=== PATIENT | male | born 1970 | race Caucasian/White ===

== ENCOUNTER 2018-07-21 16:37 | Outpatient (REF) | payer MEDICAID, SELFPAY ==
[2018-07-21 21:44] LABS: Abs Immature Grans 0.06 k/cumm (0.0-0.09); Absolute Basophil Count 0.05 k/cumm (0.0-0.2); Absolute Eosinophil Count 0.05 k/cumm (0.0-0.7); Absolute Lymphocyte Count 1.18 k/cumm (1.2-3.4); Absolute Monocyte Count 0.86 k/cumm (0.11-0.7); Absolute Neutrophil Count 6.69 k/cumm (1.2-6.7); Basophils % 0.6; Eosinophils % 0.6; HCT 40.7 % (40.0-50.0); HGB 13.6 g/dL (13.5-17.5); Immature Grans % 0.7; Lymphocytes % 13.3; Mean Corp. HGB Concentration 33.4 g/dL (32.0-36.0); Mean Corpuscular Hemoglobin 30.1 pg (27.0-33.0); Monocytes % 9.7; Neutrophils % 75.1; Platelet Count 195 x1000/uL (130-400); RBC 4.52 m/cumm (4.50-6.00); RBC Distribution Width 16.6 % (11.8-14.1); White Blood Cell Count 8.89 k/cumm (4.4-10.8)
[2018-07-21 21:49] LABS: ALT 56 U/L (12-78); AST 134 U/L (15-37); Albumin 3.4 g/dL (3.4-5.0); Alkaline Phosphatase 90 U/L (46-116); Anion Gap 10.3 mmol/L (3-11); BUN 4 mg/dL (7-18); Bilirubin, Direct 0.58 mg/dL (0.00-0.20); CO2 31.7 mmol/L (21.0-32.0); CREATININE 0.66 mg/dL (0.70-1.30); Calcium 8.8 mg/dL (8.5-10.1); Chloride 99 mmol/L (98-107); Glucose 95 mg/dL (70-100); Potassium 3.2 mmol/L (3.5-5.1); Sodium 141 mmol/L (136-145)
[2018-07-23 10:04] LABS: AFP Tumor Marker 2.7 ng/mL (<8.1)
== END 2018-07-21 16:57 ==
LOC: NCHCN 16:37
PROVIDERS: PCP Internal Medicine; Visit Provider Family Medicine
DX: R10.9 Unspecified abdominal pain (principal); K75.81 Nonalcoholic steatohepatitis (NASH); K74.60 Unspecified cirrhosis of liver; Z72.0 Tobacco use
CPT/HCPCS: 80053; 80076; 82105; 83036; 85025

== ENCOUNTER 2019-01-28 14:24 | Outpatient (REF) | payer MEDICAID, SELFPAY ==
[2019-01-28 21:09] LABS: ALT 50 U/L (12-78); AST 194 U/L (15-37); Albumin 3.4 g/dL (3.4-5.0); Alkaline Phosphatase 66 U/L (46-116); Anion Gap 14.9 mmol/L (3-11); BUN 5 mg/dL (7-18); Bilirubin, Total 1.2 mg/dL (0.2-1.0); CO2 24.1 mmol/L (21.0-32.0); CREATININE 0.54 mg/dL (0.70-1.30); Calcium 8.4 mg/dL (8.5-10.1); Chloride 101 mmol/L (98-107); Glucose 76 mg/dL (70-100); Potassium 3.4 mmol/L (3.5-5.1); Sodium 140 mmol/L (136-145); Total Protein 9.3 g/dL (6.4-8.2)
[2019-01-28 21:20] LABS: HCT 40.1 % (40.0-50.0); HGB 13.2 g/dL (13.5-17.5); Mean Corp. HGB Concentration 32.9 g/dL (32.0-36.0); Mean Corpuscular Hemoglobin 30.3 pg (27.0-33.0); Mean Corpuscular Volume 92.2 fL (80-95); Mean Platelet Volume 10.6 fL (8.0-11.0); Platelet Count 158 x1000/uL (130-400); RBC 4.35 m/cumm (4.50-6.00); RBC Distribution Width 15.2 % (11.8-14.1); White Blood Cell Count 6.07 k/cumm (4.4-10.8)
[2019-01-28 21:21] LABS: INR 1.2 (0.9-1.1); Prothrombin Time 11.8 sec (9.3-11.0)
== END 2019-01-28 14:44 ==
LOC: NCHCN 14:24
PROVIDERS: PCP Internal Medicine; Visit Provider Internal Medicine
DX: R10.9 Unspecified abdominal pain (principal); R23.8 Other skin changes; K76.9 Liver disease, unspecified; K74.60 Unspecified cirrhosis of liver
CPT/HCPCS: 80053; 85027; 85610

== ENCOUNTER 2019-06-01 10:42 | Outpatient (REF) | payer MEDICAID, SELFPAY ==
[2019-06-01 21:23] LABS: Abs Immature Grans 0.02 k/cumm (0.0-0.09); Absolute Basophil Count 0.05 k/cumm (0.0-0.2); Absolute Eosinophil Count 0.19 k/cumm (0.0-0.7); Absolute Lymphocyte Count 1.09 k/cumm (1.2-3.4); Absolute Monocyte Count 0.59 k/cumm (0.11-0.7); Absolute Neutrophil Count 3.62 k/cumm (1.2-6.7); Basophils % 0.9; Eosinophils % 3.4; HCT 40.2 % (40.0-50.0); HGB 13.1 g/dL (13.5-17.5); Immature Grans % 0.4; Lymphocytes % 19.6; Mean Corp. HGB Concentration 32.6 g/dL (32.0-36.0); Mean Corpuscular Hemoglobin 31.1 pg (27.0-33.0); Mean Corpuscular Volume 95.5 fL (80-95); Mean Platelet Volume 11.1 fL (8.0-11.0); Monocytes % 10.6; Neutrophils % 65.1; Platelet Count 143 x1000/uL (130-400); RBC 4.21 m/cumm (4.50-6.00); RBC Distribution Width 15.6 % (11.8-14.1); White Blood Cell Count 5.56 k/cumm (4.4-10.8)
[2019-06-01 21:46] LABS: ALT 61 U/L (16-63); AST 204 U/L (15-37); Albumin 3.3 g/dL (3.4-5.0); Alkaline Phosphatase 55 U/L (46-116); Anion Gap 9.4 mmol/L (3-11); BUN 7 mg/dL (7-18); CO2 29.6 mmol/L (21.0-32.0); CREATININE 0.58 mg/dL (0.70-1.30); Calcium 8.3 mg/dL (8.5-10.1); Chloride 104 mmol/L (98-107); Glucose 87 mg/dL (70-100); Magnesium 1.4 mg/dL (1.8-2.4); Potassium 3.9 mmol/L (3.5-5.1); Sodium 143 mmol/L (136-145); Total Protein 8.7 g/dL (6.4-8.2)
== END 2019-06-01 11:02 ==
LOC: NCHCN 10:42
PROVIDERS: PCP Internal Medicine; Visit Provider Family Medicine
DX: R55 Syncope and collapse (principal); R42 Dizziness and giddiness
CPT/HCPCS: 80053; 83735; 84443; 85025

== ENCOUNTER 2019-07-06 11:55 | Outpatient (REF) | payer MEDICAID, SELFPAY ==
[2019-07-12 12:21] LABS: Helicobacter pylori Ag, Feces Positive (Negative)
== END 2019-07-06 12:15 ==
LOC: NCHCN 11:55
PROVIDERS: PCP Internal Medicine; Visit Provider Internal Medicine
DX: R19.4 Change in bowel habit (principal)
CPT/HCPCS: 87338

== ENCOUNTER 2019-12-20 15:34 | Outpatient (REF) | payer MEDICAID, SELFPAY ==
[2019-12-20 21:00] LABS: Abs Immature Grans 0.01 k/cumm (0.0-0.09); Absolute Basophil Count 0.03 k/cumm (0.0-0.2); Absolute Eosinophil Count 0.12 k/cumm (0.0-0.7); Absolute Monocyte Count 0.58 k/cumm (0.11-0.7); Absolute Neutrophil Count 3.39 k/cumm (1.2-6.7); Basophils % 0.5; Eosinophils % 2.1; HCT 40.4 % (40.0-50.0); HGB 13.5 g/dL (13.5-17.5); Immature Grans % 0.2 %; Lymphocytes % 26.6; Mean Corp. HGB Concentration 33.4 g/dL (32.0-36.0); Mean Corpuscular Volume 92.9 fL (80-95); Mean Platelet Volume 11.6 fL (8.0-11.0); Monocytes % 10.3; Neutrophils % 60.3; Platelet Count 147 x1000/uL (130-400); RBC 4.35 m/cumm (4.50-6.00); RBC Distribution Width 13.8 % (11.8-14.1); White Blood Cell Count 5.63 k/cumm (4.4-10.8)
[2019-12-20 21:10] LABS: INR 1.2 (0.9-1.1)
[2019-12-20 21:29] LABS: Hemoglobin A1C 5.4 % (3.8-5.6)
[2019-12-20 21:42] LABS: ALT 97 U/L (16-63); AST 215 U/L (15-37); Albumin 3.7 g/dL (3.4-5.0); Alkaline Phosphatase 60 U/L (46-116); Anion Gap 9.9 mmol/L (3-11); BUN 9 mg/dL (7-18); Bilirubin, Total 1.8 mg/dL (0.2-1.0); CO2 29.1 mmol/L (21.0-32.0); CREATININE 0.62 mg/dL (0.70-1.30); Calcium 8.8 mg/dL (8.5-10.1); Calculated LDL 187 mg/dL (<100); Chloride 99 mmol/L (98-107); Cholesterol 255 mg/dL (<200); Glucose 93 mg/dL (74-106); HDL Cholesterol 57 mg/dL (40-60); Magnesium 1.4 mg/dL (1.8-2.4); Potassium 3.3 mmol/L (3.5-5.1); Sodium 138 mmol/L (136-145); Total Protein 8.9 g/dL (6.4-8.2); Triglyceride 56 mg/dL (<150)
== END 2019-12-20 15:54 ==
LOC: NCHCN 15:34
PROVIDERS: PCP Internal Medicine; Visit Provider Internal Medicine
DX: R73.03 Prediabetes (principal); E83.42 Hypomagnesemia; K74.60 Unspecified cirrhosis of liver
CPT/HCPCS: 80053; 80061; 83036; 83735; 85025; 85610

== ENCOUNTER 2020-02-27 09:23 | Outpatient (REF) | payer MEDICAID, SELFPAY ==
[2020-02-27 20:57] LABS: ALT 59 U/L (16-63); AST 99 U/L (15-37); Albumin 3.4 g/dL (3.4-5.0); Alkaline Phosphatase 63 U/L (46-116); Anion Gap 8.8 mmol/L (3-11); BUN 11 mg/dL (7-18); Bilirubin, Total 0.8 mg/dL (0.2-1.0); CO2 28.2 mmol/L (21.0-32.0); CREATININE 0.65 mg/dL (0.70-1.30); Calcium 8.7 mg/dL (8.5-10.1); Chloride 102 mmol/L (98-107); Glucose 115 mg/dL (74-106); Magnesium 1.6 mg/dL (1.8-2.4); Potassium 3.9 mmol/L (3.5-5.1); Sodium 139 mmol/L (136-145); Total Protein 8.9 g/dL (6.4-8.2)
== END 2020-02-27 09:43 ==
LOC: NCHCN 09:23
PROVIDERS: PCP Internal Medicine; Visit Provider Internal Medicine
DX: K74.60 Unspecified cirrhosis of liver (principal); E83.42 Hypomagnesemia
CPT/HCPCS: 80053; 83735

== ENCOUNTER 2020-05-10 09:29 | Inpatient (IN) | payer MEDICAID, SELFPAY ==
[2020-05-10] VITALS (80 sets, daily range): BP systolic 111–164; BP diastolic 60–118; PULSE 55–95; RESP 11–32; TEMP 36.6–36.7; O2SAT 93–98
--- NOTE | 2020-05-10 | DI.CT_ITS ---
EXAM: CT ABDOMEN PELVIS W CLINICAL HISTORY: pancreatitis TECHNIQUE: Imaging Protocol: Axial computed tomography images with coronal and sagittal reformatted images were created and reviewed CONTRAST MATERIAL: Intravenous: Omnipaque 350 Contrast volume:100 mL Oral: No COMPARISON: No exams were available for comparison FINDINGS: ABDOMEN: Lung Bases: Normal where visualized. Liver: There is diffuse decreased attenuation of the liver cyst consistent with fatty infiltration. There is a mildly nodular contour of the liver raising the question of hepatic cirrhosis. There is a small hypodense lesion in the inferior right lobe of the liver. It is too small for further charact erization but likely reflects a small cyst. Portal, Superior Mesenteric, and Splenic Veins: Unremarkable. Gallbladder and Biliary Tract: No radiodense calculus or dilation. Pancreas: Normal density, no abnormal calcifications or inflammatory process. Spleen: Normal. Adrenals: No masses seen. Kidneys: Normal size, contour and axis. No radiodense stones or obstructive uropathy. Hypodense less than 1 cm lesions are seen in the left kidney. There are too small for further characterization but likely reflect small cysts. Abdominal Aorta: Abdominal portion non-dilated. Atherosclerosis. Bowel: No obstruction or bowel wall thickening. No evidence of acute appendicitis. Colonic diverticu losis but no evidence of acute diverticulitis. Peritoneal Cavity: No ascites, collection or mesenteric inflammatory response. Lymph Nodes: Within normal limits. Bones: Degenerative changes. There is arthrodesis of the sacroiliac joints bilaterally. There is L5 -S1 discectomy. There is a L3 laminectomy. Pedicle focal screws and a igor are seen posteriorly on t he right from L3 through S1. Soft Tissues: Unremarkable. PELVIS: Bladder: Symmetric distention, no gross wall thickening. Reproductive Organs: Unremarkable as visualized. Lymph Nodes: Within normal limits. Bones: Please see above. IMPRESSION: 1. Fatty infiltration of the liver. Suspicious for hepatic cirrhosis. 2. Postoperative changes seen in the lumbosacral spine. 3. No acute abdominal or pelvic process. RADIATION DOSE DELIVERED: 1,161.06mGy.cm Total DLP DATA REPOSITORY: All CT scans at this facility are submitted to the National Radiology Data Registry (NRDR) Dose Index Registry (DIR) with the [employer] ([employer]). RADIATION OPTIMIZATION: All CT scans at this facility use at least one of these dose optimization te chniques: automated exposure control; mA and/or kV adjustment per patient size (includes targeted exa ms where dose is matched to clinical indication); or iterative reconstruction.
[2020-05-10 10:00] LABS: Bilirubin Small (Negative); Blood Negative (Negative); Clarity Clear (Clear); Glucose Negative (Negative); Ketones Negative (Negative); Leukocyte Esterase Negative (Negative); Nitrite Negative (Negative); Specific Gravity >= 1.030 (1.005-1.025)
[2020-05-10 10:08] LABS: Bacteria Rare HPF (Negative); C & S Indicated? No; Casts 0-2 Hyaline LPF (Negative); Crystals Negative HPF (Negative); Epithelial Cells Few HPF (Negative); Mucus Heavy (Negative); WBC 0-2 HPF (0-5)
[2020-05-10 10:18] LABS: *AMPHETAMINES SCREEN URINE Negative (Negative); *BARBITURATES SCREEN URINE Negative (Negative); *BENZODIAZEPINES SCREEN URINE Negative (Negative); Cannabinoids THC Negative (Negative); Cocaine Screen,Urine Negative (Negative); METHADONE URINE SCREEN Negative (Negative); OPIATES URINE SCREEN Negative (Negative)
[2020-05-10 10:21] LABS: Tricyclic Antidepressants Negative (Negative)
--- NOTE | 2020-05-10 10:25 | W.ED.GENAD ---
Discharge Plan Disposition Patient Disposition: OTHER Condition: Serious Discharge Details Clinical Impression: Alcohol withdrawal, Pancreatitis, Acute depression Primary Care Provider: Vilma Givens ED Provider: Oz Palmer Home Meds and New Rx's Prescriptions: No Action carvedilol 12.5 mg Tablet 12.5 mg PO BID RF: 0 chlorthalidone 25 mg tablet 25 mg PO DAILY RF: 0 triamcinolone acetonide 0.1 % cream 1 applic TOPICAL DIRECTED RF: 0 citalopram 20 mg Tablet 20 mg PO DAILY RF: 0 potassium chloride 20 mEq tablet,ER particles/crystals 20 meq PO DAILY RF: 0 magnesium oxide 400 mg (241.3 mg magnesium) tablet 400 mg PO DAILY RF: 0 diclofenac sodium 1 % gel 1 applic TOPICAL TID RF: 0 Medical Decision Making 50-year-old gentleman who admits to depression, chronic alcohol use for nearly 15 years. Last drink was yesterday afternoon-evening, presents here at the request of [facility] for detox. He denies any drug use. Patient does present with hypertension but denies any headache, chest pain, shortness of breath, numbness, tingling, weakness. He otherwise appears well, nontoxic. He shows no signs of obvious withdrawal. Will obtain routine laboratory values for medical screening, will request a mental health examination and get care management involved for a plan for this patient. Will give 1 L IV fluid and 4 mg IV Zofran. CIWA ordered and initial score of 9. Patient reports mild headache, p.o. Tylenol given. Laboratory values reveal a white blood cell count of 6.32 hemoglobin 12.9 hematocrit 40, platelet count 198. Electrolytes unremarkable. Creatinine 0.65 with a GFR greater than 60. Glucose 108. LFTs reveal total bilirubin 0.6 AST 94 ALT 66 alk phosphatase 44 lipase 481. Urinalysis unremarkable for obvious infection. Salicylates less than 2.8, tox screen negative, ethanol level 160. Repeat CIWA of 9 I spoke with [facility], they report that he cannot evaluate the patient until his alcohol level has reached 0. We did have a rehab assistant women's soccer coach come speak with the patient. Please see their note I did have our care management team come discuss options with the patient as well. Unfortunately it appears as though the patient requires a negative Covid swab and medical screening examination for any rehab facility. If the patient is discharged home this will likely mean he will need another medical screening examination and somehow either a rapid Covid swab or admission for a negative test. Repeat alcohol level 40, CIWA score now 20, 3 mg p.o. Ativan given. [facility] human services now on their way for evaluation. They are in room, please see their note. Patient was observed in our ER for over 4-1/2 hours. Initially he had very mild alcohol withdrawal symptoms but eventually upon sobriety he scored 20 requiring Ativan. At this time I feel as though we do have a diagnosis for admission, alcohol withdrawal. He does appear to be a mild pancreatitis although he has not required any analgesia here in the ER. Covid is pending. I will discuss the case with our hospitalist team for admission. Dr. Price to the ER for evaluation. She does request that a CT of the abdomen and pelvis be obtained for the patient's pancreatitis but is agreeable to admission to the ICU. Medical Records Medical records reviewed: Yes I reviewed the patient's medical records. Lab Data Lab results reviewed: Yes I reviewed the patient's lab results. Lab results narrative: Laboratory Tests Range/Units 05/10/20 05/10/20 05/10/20 09:14 09:14 10:19 WBC (4.4-10.8) 10^3/uL RBC (4.36-5.78) 10^6/uL Hgb (13.5-17.5) g/dL Hct (40.0-50.0) % MCV (80-95) fL MCH (27.0-33.0) pg MCHC (32.0-36.0) % RDW (11.8-14.1) % Plt Count (130-400) 10^3/uL MPV (8.0-11.0) fL Immature Gran % Neutrophils % Lymphocytes % Monocytes % Eosinophils % Basophils % Nucleated RBC % % Absolute Neutrophils (1.2-6.7) 10^3/uL Absolute Lymphocytes (1.2-3.4) 10^3/uL Absolute Monocytes (0.1-0.8) 10^3/uL Absolute Eosinophils (0.0-0.7) 10^3/uL Absolute Basophils (0.0-0.2) 10^3/uL Sodium (136-145) mmol/L Potassium (3.5-5.1) mmol/L Chloride (98-107) mmol/L Carbon Dioxide (21.0-32.0) mmol/L Anion Gap (3-11) mmol/L BUN (7-18) mg/dL Creatinine (0.70-1.30) mg/dL Estimated GFR/1.73 m2 (mL/min/1.73m2) Glucose (74-106) mg/dL Calcium (8.5-10.1) mg/dL Magnesium (1.8-2.4) mg/dL Total Bilirubin (0.2-1.0) mg/dL AST (15-37) U/L ALT (16-63) U/L Alkaline Phosphatase (46-116) U/L Total Protein (6.4-8.2) g/dL Albumin (3.4-5.0) g/dL Lipase (73-393) U/L Urine Color (Yellow) Dark yellow Cancelled Urine Clarity (Clear) Clear Cancelled Urine pH (5-8) 6.0 Cancelled Ur Specific [place] (1.005-1.025) >= 1.030 H Cancelled Urine Protein (Negative) mg/dL 100 H Cancelled Urine Ketones (Negative) mg/dL Negative Cancelled Urine Blood (Negative) Negative Cancelled Urine Nitrite (Negative) Negative Cancelled Urine Bilirubin (Negative) Small H Cancelled Urine Urobilinogen (Up TO 0.2) EU/dL 1.0 H Cancelled Ur Leukocyte Esterase (Negative) Negative Cancelled Urine RBC (0-2) HPF 3-5 H Urine WBC (0-5) HPF 0-2 Ur Epithelial Cells (Negative) HPF Few Urine Crystals (Negative) HPF Negative Urine Bacteria (Negative) HPF Rare Urine Casts (Negative) LPF 0-2 hyaline Urine Mucus (Negative) Heavy Ur Culture Indicated? No Urine Glucose (Negative) mg/dL Negative Cancelled Salicylates (2.8-20.0) mg/dL Urine Opiates Screen (Negative) Negative Urine Methadone Screen (Negative) Negative Acetaminophen (10-30) ug/mL Ur Barbiturates Screen (Negative) Negative Ur Tricyclics Screen (Negative) Negative Ur Amphetamines Screen (Negative) Negative U Benzodiazepines Scrn (Negative) Negative Urine Cocaine Screen (Negative) Negative Ur THC Screen (Negative) Negative Ethyl Alcohol (<3) mg/dL Range/Units 10/05/10/20 05/10/20 10:25 10:25 10:25 WBC (4.4-10.8) 10^3/uL 6.32 RBC (4.36-5.78) 10^6/uL 4.19 L Hgb (13.5-17.5) g/dL 12.9 L Hct (40.0-50.0) % 40.0 MCV (80-95) fL 95.5 H MCH (27.0-33.0) pg 30.8 MCHC (32.0-36.0) % 32.3 RDW (11.8-14.1) % 14.7 H Plt Count (130-400) 10^3/uL 198 MPV (8.0-11.0) fL 9.5 Immature Gran % 0.3 Neutrophils % 70.1 Lymphocytes % 17.2 Monocytes % 7.9 Eosinophils % 3.6 Basophils % 0.9 Nucleated RBC % % 0 Absolute Neutrophils (1.2-6.7) 10^3/uL 4.42 Absolute Lymphocytes (1.2-3.4) 10^3/uL 1.09 L Absolute Monocytes (0.1-0.8) 10^3/uL 0.50 Absolute Eosinophils (0.0-0.7) 10^3/uL 0.23 Absolute Basophils (0.0-0.2) 10^3/uL 0.06 Sodium (136-145) mmol/L 143 Potassium (3.5-5.1) mmol/L 3.8 Chloride (98-107) mmol/L 107 Carbon Dioxide (21.0-32.0) mmol/L 26.1 Anion Gap (3-11) mmol/L 9.9 BUN (7-18) mg/dL 15 Creatinine (0.70-1.30) mg/dL 0.65 L Estimated GFR/1.73 m2 (mL/min/1.73m2) >= 60.00 Glucose (74-106) mg/dL 108 H Calcium (8.5-10.1) mg/dL 8.4 L Magnesium (1.8-2.4) mg/dL 1.8 Total Bilirubin (0.2-1.0) mg/dL 0.6 AST (15-37) U/L 94 H ALT (16-63) U/L 66 H Alkaline Phosphatase (46-116) U/L 44 L Total Protein (6.4-8.2) g/dL 8.5 H Albumin (3.4-5.0) g/dL 3.5 Lipase (73-393) U/L 481 H Urine Color (Yellow) Urine Clarity (Clear) Urine pH (5-8) Ur Specific [place] (1.005-1.025) Urine Protein (Negative) mg/dL Urine Ketones (Negative) mg/dL Urine Blood (Negative) Urine Nitrite (Negative) Urine Bilirubin (Negative) Urine Urobilinogen (Up TO 0.2) EU/dL Ur Leukocyte Esterase (Negative) Urine RBC (0-2) HPF Urine WBC (0-5) HPF Ur Epithelial Cells (Negative) HPF Urine Crystals (Negative) HPF Urine Bacteria (Negative) HPF Urine Casts (Negative) LPF Urine Mucus (Negative) Ur Culture Indicated? Urine Glucose (Negative) mg/dL Salicylates (2.8-20.0) mg/dL < 2.8 Urine Opiates Screen (Negative) Urine Methadone Screen (Negative) Acetaminophen (10-30) ug/mL < 2 Ur Barbiturates Screen (Negative) Ur Tricyclics Screen (Negative) Ur Amphetamines Screen (Negative) U Benzodiazepines Scrn (Negative) Urine Cocaine Screen (Negative) Ur THC Screen (Negative) Ethyl Alcohol (<3) mg/dL 106.5 Range/Units 05/10/20 13:31 WBC (4.4-10.8) 10^3/uL RBC (4.36-5.78) 10^6/uL Hgb (13.5-17.5) g/dL Hct (40.0-50.0) % MCV (80-95) fL MCH (27.0-33.0) pg MCHC (32.0-36.0) % RDW (11.8-14.1) % Plt Count (130-400) 10^3/uL MPV (8.0-11.0) fL Immature Gran % Neutrophils % Lymphocytes % Monocytes % Eosinophils % Basophils % Nucleated RBC % % Absolute Neutrophils (1.2-6.7) 10^3/uL Absolute Lymphocytes (1.2-3.4) 10^3/uL Absolute Monocytes (0.1-0.8) 10^3/uL Absolute Eosinophils (0.0-0.7) 10^3/uL Absolute Basophils (0.0-0.2) 10^3/uL Sodium (136-145) mmol/L Potassium (3.5-5.1) mmol/L Chloride (98-107) mmol/L Carbon Dioxide (21.0-32.0) mmol/L Anion Gap (3-11) mmol/L BUN (7-18) mg/dL Creatinine (0.70-1.30) mg/dL Estimated GFR/1.73 m2 (mL/min/1.73m2) Glucose (74-106) mg/dL Calcium (8.5-10.1) mg/dL Magnesium (1.8-2.4) mg/dL Total Bilirubin (0.2-1.0) mg/dL AST (15-37) U/L ALT (16-63) U/L Alkaline Phosphatase (46-116) U/L Total Protein (6.4-8.2) g/dL Albumin (3.4-5.0) g/dL Lipase (73-393) U/L Urine Color (Yellow) Urine Clarity (Clear) Urine pH (5-8) Ur Specific [place] (1.005-1.025) Urine Protein (Negative) mg/dL Urine Ketones (Negative) mg/dL Urine Blood (Negative) Urine Nitrite (Negative) Urine Bilirubin (Negative) Urine Urobilinogen (Up TO 0.2) EU/dL Ur Leukocyte Esterase (Negative) Urine RBC (0-2) HPF Urine WBC (0-5) HPF Ur Epithelial Cells (Negative) HPF Urine Crystals (Negative) HPF Urine Bacteria (Negative) HPF Urine Casts (Negative) LPF Urine Mucus (Negative) Ur Culture Indicated? Urine Glucose (Negative) mg/dL Salicylates (2.8-20.0) mg/dL Urine Opiates Screen (Negative) Urine Methadone Screen (Negative) Acetaminophen (10-30) ug/mL Ur Barbiturates Screen (Negative) Ur Tricyclics Screen (Negative) Ur Amphetamines Screen (Negative) U Benzodiazepines Scrn (Negative) Urine Cocaine Screen (Negative) Ur THC Screen (Negative) Ethyl Alcohol (<3) mg/dL 40.1 ECG Data Attestation: I personally reviewed and interpreted this ECG (s) as follows: Interpretation: Please see official report by Dr. Hensley. Sinus rhythm, ventricular rate of 67. No STEMI. HPI General Mode of arrival: ambulatory. Date/Time Provider Initiated Documentation: 05/10/20 09:36. Limitations to Documentation: no limitations. Information obtained by: patient. HPI Narrative: This is a 50-year-old gentleman with history of alcohol abuse, hypertension, depression, presenting to the ER for evaluation at the request of [facility] human services. He reports that he drinks roughly 1/2 gallon of vodka every 2 days. He states that his last drink was yesterday afternoon-evening. He reports a past medical history that includes depression and hypertension. He called 911 last night for help with his current situation and requesting alcohol detox. He was referred to [facility] human resources and subsequently referred to the ER. He denies any drug use. He admits to depression but denies any suicidal or homicidal ideations. Currently he reports mild nausea and feels slightly anxious but does not believe that he is in clear withdrawals at the moment. He did formally detox back in 2001, does not recall the detox very well. Does not believe that he had a seizure at that time. He denies recent illness or trauma. He denies any visual changes, neck pain, chest pain, shortness of breath, abdominal pain, vomiting, bowel or bladder changes, numbness, tingling, weakness. Related Data Home Medications Medication Instructions Recorded Confirmed carvedilol 12.5 mg PO BID 05/10/20 05/10/20 chlorthalidone 25 mg PO DAILY 05/10/20 05/10/20 citalopram 20 mg PO DAILY 05/10/20 05/10/20 diclofenac sodium 1 applic TOPICAL TID 05/10/20 05/10/20 magnesium oxide 400 mg PO DAILY 05/10/20 05/10/20 potassium chloride 20 meq PO DAILY 05/10/20 05/10/20 triamcinolone acetonide 1 applic TOPICAL DIRECTED 05/10/20 05/10/20 Allergies Allergy/AdvReac Type Severity Reaction Status Date / Time No Known Allergies Allergy Unverified 05/10/20 09:46 General Stated Complaint: ETOHWithdr GUSTAVO: 3 Review of Systems Constitutional Constitutional: Denies fatigue, Denies fever(s) and Denies weakness Eyes Eyes: Denies change in vision ENT Ears, Nose, Mouth, and Throat: Denies neck pain Cardiovascular Cardiovascular: Denies chest pain and Denies dyspnea Respiratory Respiratory: Denies cough and Denies dyspnea Gastrointestinal Gastrointestinal: Denies abdominal pain, Reports nausea and Denies vomiting Genitourinary Genitourinary: Denies dysuria Musculoskeletal Musculoskeletal: Denies back pain, Denies neck pain, Denies numbness and Denies tingling Integumentary/Breasts Skin/Breast: Denies rash Neurologic Neurologic: Denies numbness, Denies tingling and Denies weakness Psychiatric Psychiatric: Reports anxiety, Reports depression, Denies homicidal ideation and Denies suicidal ideation Endocrine Endocrine: Denies fatigue [facility] Medical History Alcohol abuse Chronic back pain Depression Fatty liver HTN (hypertension), benign NERIS on CPAP Prediabetes Surgical History History of back surgery 11 surgeries in total S/P tonsillectomy Family History Father Heart disease Diabetes Cancer pancreatic cancer Social History Smoking/Tobacco Use Status: Never Alcohol Intake: current Alcohol Intake frequency: 3 or more drinks per day Alcohol type: hard liquor Drug use: Never Substance use type: does not use and former substance user Date of last use: marijuana Do you feel safe at home: Yes Do you feel safe in your relationship?: Yes Exam Const General: cooperative, healthy appearing, comfortable and no acute distress Orientation: alert, awake and oriented x3 HENMT Head: normal to inspection, no palpable skull fracture, normocephalic and atraumatic General nose exam: external nose normal Face and sinus: normal facial exam Mouth: moist mucous membranes Throat: posterior oropharynx normal Eyes General: appearance normal, both eyes and all related structures Alignment and Position: alignment normal Periorbital: periorbital findings normal Eyelids: eyelids normal Conjunctivae: conjunctivae normal Sclera: sclerae normal Cornea: corneas normal Pupils: PERRL EOM: EOM intact bilaterally Direct ophthalmoscopy: normal light reflex Neck Neck: normal visual inspection, full ROM, trachea midline, supple and nontender Resp Effort & Inspection: normal respiratory effort and able to speak in complete sentences Auscultation: clear to auscultation bilaterally Cardio Rate: regular rate Rhythm: regular rhythm GI Palpation: soft, not firm, no guarding and tender in the epigastrum (Minimal to deep palpation); with no rebound tenderness Auscultation: normal bowel sounds Back/Spine/Pelvis Back: No back tenderness Skin General skin exam: no rashes or lesions noted Neuro General: patient alert, patient awake, patient oriented x3, moves all extremities and no focal motor deficits Cranial Nerves: CN's II-XI intact bilaterally Cognition: normal cognition Gait: normal gait Motor: muscle tone normal throughout Sensory Exam: no sensory deficits noted Extrem General: normal to inspection, full ROM, capillary refill normal, no pedal edema and no calf tenderness Psych Appearance: grossly normal Mental Status: mental status grossly normal Mood: dysthymic mood Thought Content: suicidality Insight: fair Judgment: fair Course Vital Signs Vital signs: Vital Signs Temperature 36.6 C 05/10/20 09:39 Pulse 85 05/10/20 09:39 Blood Pressure 161/101 H 05/10/20 09:39 Pulse Oximetry 95 05/10/20 09:39 Temperature 36.6 C 05/10/20 09:39 Temperature Source Temporal Artery Scan 05/10/20 09:39 Pulse 85 05/10/20 09:39 Respiratory Effort Non-Labored 05/10/20 09:49 Respiratory Pattern Normal 05/10/20 10:07 Blood Pressure 161/101 H 05/10/20 09:39 Blood Pressure Position Sitting 05/10/20 09:39 Pulse Oximetry 95 05/10/20 09:39 Oxygen Delivery Method Room Air 05/10/20 09:39 Oxygen Flow Rate 0 05/10/20 09:39 Pain Level 0 05/10/20 09:39 Lab/Test Results Lab/Test Results: Laboratory Tests Range/Units 05/10/20 05/10/20 09:14 09:14 Urine Color (Yellow) Dark yellow Urine Clarity (Clear) Clear Urine pH (5-8) 6.0 Ur Specific [place] (1.005-1.025) >= 1.030 H Urine Protein (Negative) mg/dL 100 H Urine Ketones (Negative) mg/dL Negative Urine Blood (Negative) Negative Urine Nitrite (Negative) Negative Urine Bilirubin (Negative) Small H Urine Urobilinogen (Up TO 0.2) EU/dL 1.0 H Ur Leukocyte Esterase (Negative) Negative Urine RBC (0-2) HPF 3-5 H Urine WBC (0-5) HPF 0-2 Ur Epithelial Cells (Negative) HPF Few Urine Crystals (Negative) HPF Negative Urine Bacteria (Negative) HPF Rare Urine Casts (Negative) LPF 0-2 hyaline Urine Mucus (Negative) Heavy Ur Culture Indicated? No Urine Glucose (Negative) mg/dL Negative Urine Opiates Screen (Negative) Negative Urine Methadone Screen (Negative) Negative Ur Barbiturates Screen (Negative) Negative Ur Tricyclics Screen (Negative) Negative Ur Amphetamines Screen (Negative) Negative U Benzodiazepines Scrn (Negative) Negative Urine Cocaine Screen (Negative) Negative Ur THC Screen (Negative) Negative Critical Care Time Critical Care Time Critical Care Time: Yes Total Critical Care Time: 45 Attestation: Upon my evaluation, this patient had a high probability of clinically significant, life-threatening deterioration due to their current medical conditions, which required my direct attention, intervention, and personal management. I have personally provided greater than 30 minutes of critical care time exclusive of the time spend on separately billable procedures. Time includes obtaining a history, examining the patient, pulse oximetry, review of laboratory data, radiology results, discussion with consultants, arranging urgent treatment with development of a management plan, evaluation of patient's response to treatment, and monitoring for potential decompensation. Interventions were performed as documented above.
[2020-05-10 10:33] LABS: Abs Immature Grans 0.02 10^3/uL (0.0-0.06); Absolute Basophil Count 0.06 10^3/uL (0.0-0.2); Absolute Eosinophil Count 0.23 10^3/uL (0.0-0.7); Absolute Lymphocyte Count 1.09 10^3/uL (1.2-3.4); Absolute Neutrophil Count 4.42 10^3/uL (1.2-6.7); Basophils % 0.9; Eosinophils % 3.6; HGB 12.9 g/dL (13.5-17.5); Immature Grans % 0.3; Lymphocytes % 17.2; MCH 30.8 pg (27.0-33.0); MCHC 32.3 % (32.0-36.0); MCV 95.5 fL (80-95); MPV 9.5 fL (8.0-11.0); Monocytes % 7.9; Neutrophils % 70.1; Nucleated RBC 0 %; Platelet Count 198 10^3/uL (130-400); RBC 4.19 10^6/uL (4.36-5.78); RDW 14.7 % (11.8-14.1); RDW-SD 52.2 fL; WBC 6.32 10^3/uL (4.4-10.8)
[2020-05-10 10:47] LABS: ALT 66 U/L (16-63); AST 94 U/L (15-37); Albumin 3.5 g/dL (3.4-5.0); Alkaline Phosphatase 44 U/L (46-116); Anion Gap 9.9 mmol/L (3-11); BUN 15 mg/dL (7-18); Bilirubin, Total 0.6 mg/dL (0.2-1.0); CO2 26.1 mmol/L (21.0-32.0); CREATININE 0.65 mg/dL (0.70-1.30); Calcium 8.4 mg/dL (8.5-10.1); Chloride 107 mmol/L (98-107); ETHANOL BLOOD 106.5 mg/dL (<3); Glucose 108 mg/dL (74-106); Lipase 481 U/L (73-393); Magnesium 1.8 mg/dL (1.8-2.4); Potassium 3.8 mmol/L (3.5-5.1); Sodium 143 mmol/L (136-145); Total Protein 8.5 g/dL (6.4-8.2)
[2020-05-10 11:04] LABS: Salicylate < 2.8 mg/dL (2.8-20.0)
[2020-05-10] MEDS: Ondansetron 4 MG/2 ML VIAL IVP ×2 (11:06→23:55)
[2020-05-10] MEDS: Normal Saline 1,000 ML 1000 ML IV (11:06)
[2020-05-10 11:15] LABS: Acetaminophen < 2 ug/mL (10-30)
--- NOTE | 2020-05-10 13:15 | RT.EKG_ITS ---
APPROVED REPORT Exam: Resting ECG Patient Location: E HR:67 bpm ECG Measurements Heart Rate 67 AXIS KS 185 P 42 QRSd 94 QRS -18 QT 420 T -9 QTc 443 Conclusion Sinus rhythm...normal P axis, V-rate 60- 99. T wave inversion in III, aVF. No STEMI. I have reviewed and interpreted ECG and agree with software generated interpretation.
[2020-05-10 13:43] LABS: ETHANOL BLOOD 40.1 mg/dL (<3)
[2020-05-10] MEDS: Acetaminophen 500 MG TAB (14:03)
[2020-05-10] MEDS: LORazepam 1 MG TAB PO/SL (14:21)
--- NOTE | 2020-05-10 15:16 | HPE_ITS ---
Date of service: 05/10/20 Time of Service: 15:16 Assessment and Plan Assessment and plan (1) Alcohol withdrawal: Status: Acute Assessment and plan: Admit to the ICU. Will give a dose of 260 mg of phenobarbital and monitor for further symptoms with prn doses to be given Q30 mins for HR>120, SBP>150, marked agitation, RASC score 0-1. (2) Pancreatitis: Status: Chronic Assessment and plan: NPO. Await CT abdomen/pelvis. Prn IV toradol (3) Depression: Status: Chronic Assessment and plan: Continue citalopram (4) Chronic pain: Status: Chronic Assessment and plan: Continue diclofenac topically; will be receiving toradol. (5) DVT prophylaxis: Status: Acute Assessment and plan: lovenox, TEDs, SCDS (6) Discharge planning issues: Status: Acute Assessment and plan: Full code Admit to the ICU for the degree of alcohol withdrawal. Total Critical Care Time 60 minutes. History of Present Illness History of Present Illness Chief Complaint: epigastric pain, alcohol withdrawal Narrative: Mr Glaser is a 50 year old male with PMHx of alcohol abuse (last sober in 2004), as well as h/o HTN, chronic pain, depression, who called mental health last night asking for help quitting drinking, and was asked to go to the ED, where he now has a CIWA score of 20 and is reporting epigastric pain with an elevated lipase, c/w pacreatitis. The patient has had a headache, nausea, RUQ pain, tremors. He denies chest pain, shortness of breath, fever, cough, symptoms of COVID-19. He does not have a h/o of alcohol withdrawal seizures. The patient is now drinking 1/2 gallon of vodka every 2 days. His last drink was yesterday afternoon. He is not suicidal or homicidal. Review of Systems All systems reviewed & are unremarkable except as noted in HPI and below PFSH Medical History Alcohol abuse Chronic back pain Depression Fatty liver HTN (hypertension), benign NERIS on CPAP Prediabetes Surgical History History of back surgery 11 surgeries in total S/P tonsillectomy Family History Father Heart disease Diabetes Cancer pancreatic cancer Social History Smoking/Tobacco Use Status: Never Alcohol Intake: current Alcohol Intake frequency: 3 or more drinks per day Alcohol type: hard liquor Drug use: Never Substance use type: does not use and former substance user Date of last use: marijuana Do you feel safe at home: Yes Do you feel safe in your relationship?: Yes Meds Home Medications and Allergies Home Medications Medication Instructions Recorded Confirmed Type carvedilol 12.5 mg PO BID 05/10/20 05/10/20 History chlorthalidone 25 mg PO DAILY 05/10/20 05/10/20 History citalopram 20 mg PO DAILY 05/10/20 05/10/20 History diclofenac sodium 1 applic TOPICAL TID 05/10/20 05/10/20 History magnesium oxide 400 mg PO DAILY 05/10/20 05/10/20 History potassium chloride 20 meq PO DAILY 05/10/20 05/10/20 History triamcinolone acetonide 1 applic TOPICAL DIRECTED 05/10/20 05/10/20 History Allergies Allergy/AdvReac Type Severity Reaction Status Date / Time No Known Allergies Allergy Unverified 05/10/20 09:46 Exam Narrative Exam Narrative: General: Very pleasant, very tremulous middle-aged male, very cooperative, A&Ox3, sitting up in bed Neurological: A&Ox3, tremulous, no focal deficits Psychiatric: Appropriate speech pattern/content Skin: Visible skin intact; does have tattoo on the right shoulder HEENT: Atraumatic, normocephalic, EOMI, dry MM, clear oropharynx, no submandibular or cervical lymphadenopathy, no goiter or JVD Cardiovascular: RRR, no m/r/g Lungs: CTAB Gastrointestinal: soft, nontender, nondistended Genitourinary: deferred Extremities: no edema BLE's. Results Imaging Additional studies: CT abdome/pelvis pending. EKG: NSR, HR 66, no acute ischemia Labs Result diagrams: 05/10/20 10:25 05/10/20 10:25 Labs: Laboratory Results - last 24 hr 05/10/20 05/10/20 05/10/20 09:14 09:14 10:19 WBC RBC Hgb Hct MCV MCH MCHC RDW Plt Count MPV Immature Gran % Neutrophils % Lymphocytes % Monocytes % Eosinophils % Basophils % Nucleated RBC % Absolute Neutrophils Absolute Lymphocytes Absolute Monocytes Absolute Eosinophils Absolute Basophils Sodium Potassium Chloride Carbon Dioxide Anion Gap BUN Creatinine Estimated GFR/1.73 m2 Glucose Calcium Magnesium Total Bilirubin AST ALT Alkaline Phosphatase Total Protein Albumin Lipase Urine Color Dark yellow Cancelled Urine Clarity Clear Cancelled Urine pH 6.0 Cancelled Ur Specific [place] >= 1.030 H Cancelled Urine Protein 100 H Cancelled Urine Ketones Negative Cancelled Urine Blood Negative Cancelled Urine Nitrite Negative Cancelled Urine Bilirubin Small H Cancelled Urine Urobilinogen 1.0 H Cancelled Ur Leukocyte Esterase Negative Cancelled Urine RBC 3-5 H Urine WBC 0-2 Ur Epithelial Cells Few Urine Crystals Negative Urine Bacteria Rare Urine Casts 0-2 hyaline Urine Mucus Heavy Ur Culture Indicated? No Urine Glucose Negative Cancelled Salicylates Urine Opiates Screen Negative Urine Methadone Screen Negative Acetaminophen Ur Barbiturates Screen Negative Ur Tricyclics Screen Negative Ur Amphetamines Screen Negative U Benzodiazepines Scrn Negative Urine Cocaine Screen Negative Ur THC Screen Negative Ethyl Alcohol 05/10/20 05/10/20 05/10/20 10:25 10:25 10:25 WBC 6.32 RBC 4.19 L Hgb 12.9 L Hct 40.0 MCV 95.5 H MCH 30.8 MCHC 32.3 RDW 14.7 H Plt Count 198 MPV 9.5 Immature Gran % 0.3 Neutrophils % 70.1 Lymphocytes % 17.2 Monocytes % 7.9 Eosinophils % 3.6 Basophils % 0.9 Nucleated RBC % 0 Absolute Neutrophils 4.42 Absolute Lymphocytes 1.09 L Absolute Monocytes 0.50 Absolute Eosinophils 0.23 Absolute Basophils 0.06 Sodium 143 Potassium 3.8 Chloride 107 Carbon Dioxide 26.1 Anion Gap 9.9 BUN 15 Creatinine 0.65 L Estimated GFR/1.73 m2 >= 60.00 Glucose 108 H Calcium 8.4 L Magnesium 1.8 Total Bilirubin 0.6 AST 94 H ALT 66 H Alkaline Phosphatase 44 L Total Protein 8.5 H Albumin 3.5 Lipase 481 H Urine Color Urine Clarity Urine pH Ur Specific [place] Urine Protein Urine Ketones Urine Blood Urine Nitrite Urine Bilirubin Urine Urobilinogen Ur Leukocyte Esterase Urine RBC Urine WBC Ur Epithelial Cells Urine Crystals Urine Bacteria Urine Casts Urine Mucus Ur Culture Indicated? Urine Glucose Salicylates < 2.8 Urine Opiates Screen Urine Methadone Screen Acetaminophen < 2 Ur Barbiturates Screen Ur Tricyclics Screen Ur Amphetamines Screen U Benzodiazepines Scrn Urine Cocaine Screen Ur THC Screen Ethyl Alcohol 106.5 05/10/20 13:31 WBC RBC Hgb Hct MCV MCH MCHC RDW Plt Count MPV Immature Gran % Neutrophils % Lymphocytes % Monocytes % Eosinophils % Basophils % Nucleated RBC % Absolute Neutrophils Absolute Lymphocytes Absolute Monocytes Absolute Eosinophils Absolute Basophils Sodium Potassium Chloride Carbon Dioxide Anion Gap BUN Creatinine Estimated GFR/1.73 m2 Glucose Calcium Magnesium Total Bilirubin AST ALT Alkaline Phosphatase Total Protein Albumin Lipase Urine Color Urine Clarity Urine pH Ur Specific [place] Urine Protein Urine Ketones Urine Blood Urine Nitrite Urine Bilirubin Urine Urobilinogen Ur Leukocyte Esterase Urine RBC Urine WBC Ur Epithelial Cells Urine Crystals Urine Bacteria Urine Casts Urine Mucus Ur Culture Indicated? Urine Glucose Salicylates Urine Opiates Screen Urine Methadone Screen Acetaminophen Ur Barbiturates Screen Ur Tricyclics Screen Ur Amphetamines Screen U Benzodiazepines Scrn Urine Cocaine Screen Ur THC Screen Ethyl Alcohol 40.1 Last Vital Signs Temp 36.6 C 05/10/20 09:39 Pulse 57 L 05/10/20 14:01 Resp 22 05/10/20 15:00 BP 150/97 H 05/10/20 14:01 Pulse Ox 97 05/10/20 14:20 COVID-19 Screening Have you,or household,traveled outside [place] in last 14 days?: No Had IN PERSON contact w/suspected or confirmed C-19 person: No
[2020-05-10] MEDS: Normal Saline - Diluent 50 ML VIAL IV (15:35)
[2020-05-10] MEDS: Omnipaque 350 MG/ML 100 ML BTL IJ (15:36)
--- NOTE | 2020-05-10 16:26 | DI.VRAD_ITS ---
PROCEDURE INFORMATION: Exam: CT Abdomen And Pelvis With Contrast Exam date and time: 05/10/2020 3:41 PM Age: 50 years old Clinical indication: Localized; Patient HX: Upper mid abdominal pain. No surgeries. TECHNIQUE: Imaging protocol: Computed tomography of the abdomen and pelvis with intravenous contrast. Radiation optimization: All CT scans at this facility use at least one of these dose optimization techniques: automated exposure control; mA and/or kV adjustment per patient size (includes targeted exams where dose is matched to clinical indication); or iterative reconstruction. Contrast material: OMNIPAQUE 350; Contrast volume: 100 ml; Contrast route: INTRAVENOUS (IV); COMPARISON: No relevant prior studies available. FINDINGS: Liver: Diffuse fatty infiltration of liver. Mild cirrhotic configuration. 9mm low-density lesion in the inferior right hepatic lobe, best seen on axial series 5, image 397. Gallbladder and bile ducts: Cholelithiasis. Pancreas: Normal. No ductal dilation. Spleen: Normal. No splenomegaly. Adrenals: Normal. No mass. Kidneys and ureters: 1 cm uniform low-density lesion superior pole of left kidney consistent with a benign cyst. Stomach and bowel: Sigmoid diverticulosis in without evidence of diverticulitis. Appendix: No evidence of appendicitis. Intraperitoneal space: Unremarkable. No free air. No significant fluid collection. Vasculature: Mild vascular calcifications. No aneurysm identified. Lymph nodes: Unremarkable. No enlarged lymph nodes. Urinary bladder: Unremarkable as visualized. Reproductive: Unremarkable as visualized. Bones/joints: Arthrodesis of the bilateral sacroiliac joints with 3 screws across each joint. The sacroiliac joint spaces remain visible. Discectomy at L5-S1 with anterior vertebral bone grafting. L3 through L5 laminectomies with posterior bone grafting L3 through S1 and posterior igor and pedicle screw fixation on the right at L3 through S1 Soft tissues: Unremarkable. IMPRESSION: 1. Cirrhotic liver with diffuse fatty infiltration. 2. 9 mm benign appearing low-density lesion inferior right hepatic lobe. No further imaging is necessary. 3. Postoperative changes in the lower lumbar spine and sacrum as described. Dictated and Authenticated by: Aletha Casanova MD. Ordering:JAYLEN Olivares MD
--- NOTE | 2020-05-10 16:42 | PDOC.MHCN_ITS ---
Date of service: 05/10/20 Time of Service: 16:42 Mental Health Crisis Note Presenting Issue How did you arrive at the ED and why did you come: Yasmani arrived this am on his own seeking treatment for his substance abuse. Precipitating Factors Yasmani is denying SI and HI today although yesterday he called 911 because he was having SI. There are no signs of delusions at this time. Disposition BEHAVIOR: Yasmani is cooperative and engaged in the assessment although it was a brief one today. He is anxious about leaving his for an extended period of time although knows he needs help. EYE CONTACT: Yasmani made good eye contact today. MOOD: Yasmani is slightly anxious but more depressed than anything. AFFECT: Yasmani's affect appears normal. APPETITE: Yasmani reports his appetite is up and down. SLEEP(trouble falling/staying asleep: Yasmani reported that his sleep has not been good. Plan Yasmani is being admitted today for detox symptoms and pancreatitis. Once medically cleared he will be re-assessed and plans for treatment will be revisited. Signature Clinician's Name/Title: Soraya Jade MS, [facility] Emergency Services Clinician
[2020-05-10] MEDS: Normal Saline 1,000 ML 200 ML IV ×2 (18:05→23:51)
[2020-05-10] MEDS: Normal Saline Flush 10 ML SYR IVP (18:05)
[2020-05-10] MEDS: Pantoprazole 40 MG VIAL IVP (18:07)
[2020-05-10] MEDS: Enoxaparin 40 MG/0.4 ML SYR SC (18:09)
[2020-05-10] MEDS: PHENobarbital 130 MG/ML VIAL 260 MG IVP (18:10)
[2020-05-10] MEDS: Acetaminophen 325 MG TAB PO ×2 (19:33→23:55)
[2020-05-10] MEDS: Carvedilol 12.5 MG TAB PO (19:33)
[2020-05-10] MEDS: PHENobarbital 130 MG/ML VIAL IVP (23:54)
[2020-05-11] VITALS (59 sets, daily range): BP systolic 114–176; BP diastolic 59–92; PULSE 50–66; RESP 11–20; TEMP 26.3–37.7; O2SAT 90–98
[2020-05-11] MEDS: Ketorolac 30 MG/ML VIAL IVP ×2 (00:28→08:48)
[2020-05-11 01:42] LABS: COVID-19 RT-PCR UVMMC Result Negative (Negative)
[2020-05-11] MEDS: Acetaminophen 325 MG TAB PO ×2 (04:22→18:16)
[2020-05-11] MEDS: PHENobarbital 130 MG/ML VIAL IVP ×5 (04:45→19:02)
[2020-05-11] MEDS: Normal Saline 1,000 ML 200 ML IV (05:19)
[2020-05-11 07:11] LABS: Abs Immature Grans 0.02 10^3/uL (0.0-0.06); Absolute Basophil Count 0.04 10^3/uL (0.0-0.2); Absolute Eosinophil Count 0.23 10^3/uL (0.0-0.7); Absolute Monocyte Count 0.58 10^3/uL (0.1-0.8); Absolute Neutrophil Count 3.41 10^3/uL (1.2-6.7); Basophils % 0.7; Eosinophils % 4.3; HCT 39.5 % (40.0-50.0); HGB 12.4 g/dL (13.5-17.5); Immature Grans % 0.4; Lymphocytes % 20.4; MCH 30.2 pg (27.0-33.0); MCHC 31.4 % (32.0-36.0); MCV 96.3 fL (80-95); MPV 10.8 fL (8.0-11.0); Monocytes % 10.8; Neutrophils % 63.4; Nucleated RBC 0 %; Platelet Count 188 10^3/uL (130-400); RDW 14.3 % (11.8-14.1); RDW-SD 50.7 fL; WBC 5.38 10^3/uL (4.4-10.8)
[2020-05-11 07:38] LABS: ALT 49 U/L (16-63); AST 59 U/L (15-37); Albumin 3.1 g/dL (3.4-5.0); Alkaline Phosphatase 40 U/L (46-116); Anion Gap 8.5 mmol/L (3-11); BUN 11 mg/dL (7-18); Bilirubin, Direct 0.42 mg/dL (0.00-0.20); Bilirubin, Total 1.6 mg/dL (0.2-1.0); CO2 25.5 mmol/L (21.0-32.0); CREATININE 0.69 mg/dL (0.70-1.30); Calcium 7.9 mg/dL (8.5-10.1); Chloride 102 mmol/L (98-107); Glucose 85 mg/dL (74-106); Magnesium 1.7 mg/dL (1.8-2.4); Potassium 3.5 mmol/L (3.5-5.1); Sodium 136 mmol/L (136-145); Total Protein 7.7 g/dL (6.4-8.2)
[2020-05-11 07:54] LABS: Calculated LDL 124 mg/dL (<100); Cholesterol 187 mg/dL (<200); HDL Cholesterol 49 mg/dL (40-60); Triglyceride 71 mg/dL (<150)
--- NOTE | 2020-05-11 08:11 | PGE_ITS ---
Date of Service Date of service: 05/11/20 Time of Service: 11:46 Assessment and Plan Assessment and plan (1) Alcohol withdrawal: Status: Acute Assessment and plan: Ongoing but appears well controlled with prn phenobarbital Keep in ICU. Continue prn 130-260 mg of phenobarbital Q30 mins for HR>120, SBP>150, marked agitation, goal of RASC score 0-1. (2) Horizontal nystagmus: Status: Acute Assessment and plan: Suggestive of developing Wernicke's. I have increased IV thiamine to 500 mg IV Q8 hrs. (3) Pancreatitis: Status: Chronic Assessment and plan: Keep NPO except ice chips. Changing pain control to morphine due to findings of suspected cirrhosis on CT and possibility of varices. (4) Alcoholic gastritis without bleeding: Status: Suspected Assessment and plan: Increase PPI to BID. D/c NSAIDS. (5) Cirrhosis, alcoholic: Status: Chronic Assessment and plan: Suspected based on CT. Patient has a h/o fatty liver which [place]ops[place] x2 [place] [facility] [place]. He does not have a history of hepatitis. We will obtain an ultrasound of the liver. Again, I am concerned that the patient is at risk for varices and, for this reason, am discontinuing NSAIDS. Will also limit acetaminophen to 2 grams/day. DVT ppx is being changed to sc heparin q12 hrs with low threshold to d/c. Check hemoccult. (6) Depression: Status: Chronic Assessment and plan: Continue citalopram (7) Chronic pain: Status: Chronic Assessment and plan: D/c topical diclofenac as well as toradol. Pain control with morphine at this time. (8) Hypomagnesemia: Status: Acute Assessment and plan: Replete and recheck in am (9) DVT prophylaxis: Status: Acute Assessment and plan: lovenox, TEDs, SCDS (10) Discharge planning issues: Status: Acute Assessment and plan: Full code Keep in ICU Total Critical Care Time 40 minutes. Subjective Subjective Interval history since last seen: The patient states that some things feel better today and some things feel worse. Headache is better, tremors are worse. No dizziness, chest pain, shortness of breath. CIWA scores 15 this am at 06:22 as well as 09:21, he got phenobarbital - worked for him, latest CIWA 3. Slight pain in epigastrium today, worse with palpation. Still nauseated, did vomit overnight. States he has been vomiting every day waking up at home - mostly bile. Exam Narrative Exam Narrative: General: very pleasant middle-aged male, tremulous HEENT: EOMI but now has a horizontal nystagmus, MMM Heart: RRR, no m/r/g Lungs: CTAB Abdomen: soft, tender in epigastrium but not RUQ, nondistended Extremities: no e/c/c BLEs. Objective Last Vital Signs Temp 36.7 C 05/11/20 03:13 Pulse 57 L 05/11/20 06:00 Resp 18 05/11/20 06:00 BP 157/83 H 05/11/20 06:00 Pulse Ox 94 05/11/20 06:00 Laboratory Results - last 24 hr 05/10/20 05/10/20 05/10/20 09:14 09:14 10:19 WBC RBC Hgb Hct MCV MCH MCHC RDW Plt Count MPV Immature Gran % Neutrophils % Lymphocytes % Monocytes % Eosinophils % Basophils % Nucleated RBC % Absolute Neutrophils Absolute Lymphocytes Absolute Monocytes Absolute Eosinophils Absolute Basophils Sodium Potassium Chloride Carbon Dioxide Anion Gap BUN Creatinine Estimated GFR/1.73 m2 Glucose Calcium Magnesium Total Bilirubin Conjugated Bilirubin AST ALT Alkaline Phosphatase Total Protein Albumin Triglycerides Total Cholesterol LDL Cholesterol, Calc HDL Cholesterol Lipase Urine Color Dark yellow Cancelled Urine Clarity Clear Cancelled Urine pH 6.0 Cancelled Ur Specific [place] >= 1.030 H Cancelled Urine Protein 100 H Cancelled Urine Ketones Negative Cancelled Urine Blood Negative Cancelled Urine Nitrite Negative Cancelled Urine Bilirubin Small H Cancelled Urine Urobilinogen 1.0 H Cancelled Ur Leukocyte Esterase Negative Cancelled Urine RBC 3-5 H Urine WBC 0-2 Ur Epithelial Cells Few Urine Crystals Negative Urine Bacteria Rare Urine Casts 0-2 hyaline Urine Mucus Heavy Ur Culture Indicated? No Urine Glucose Negative Cancelled Salicylates Urine Opiates Screen Negative Urine Methadone Screen Negative Acetaminophen Ur Barbiturates Screen Negative Ur Tricyclics Screen Negative Ur Amphetamines Screen Negative U Benzodiazepines Scrn Negative Urine Cocaine Screen Negative Ur THC Screen Negative Ethyl Alcohol COVID-19 PCR Nasopharyn COVID-19 PCR Ref Test Perform Site 05/10/20 05/10/20 05/10/20 10:25 10:25 10:25 WBC 6.32 RBC 4.19 L Hgb 12.9 L Hct 40.0 MCV 95.5 H MCH 30.8 MCHC 32.3 RDW 14.7 H Plt Count 198 MPV 9.5 Immature Gran % 0.3 Neutrophils % 70.1 Lymphocytes % 17.2 Monocytes % 7.9 Eosinophils % 3.6 Basophils % 0.9 Nucleated RBC % 0 Absolute Neutrophils 4.42 Absolute Lymphocytes 1.09 L Absolute Monocytes 0.50 Absolute Eosinophils 0.23 Absolute Basophils 0.06 Sodium 143 Potassium 3.8 Chloride 107 Carbon Dioxide 26.1 Anion Gap 9.9 BUN 15 Creatinine 0.65 L Estimated GFR/1.73 m2 >= 60.00 Glucose 108 H Calcium 8.4 L Magnesium 1.8 Total Bilirubin 0.6 Conjugated Bilirubin AST 94 H ALT 66 H Alkaline Phosphatase 44 L Total Protein 8.5 H Albumin 3.5 Triglycerides Total Cholesterol LDL Cholesterol, Calc HDL Cholesterol Lipase 481 H Urine Color Urine Clarity Urine pH Ur Specific [place] Urine Protein Urine Ketones Urine Blood Urine Nitrite Urine Bilirubin Urine Urobilinogen Ur Leukocyte Esterase Urine RBC Urine WBC Ur Epithelial Cells Urine Crystals Urine Bacteria Urine Casts Urine Mucus Ur Culture Indicated? Urine Glucose Salicylates < 2.8 Urine Opiates Screen Urine Methadone Screen Acetaminophen < 2 Ur Barbiturates Screen Ur Tricyclics Screen Ur Amphetamines Screen U Benzodiazepines Scrn Urine Cocaine Screen Ur THC Screen Ethyl Alcohol 106.5 COVID-19 PCR Nasopharyn COVID-19 PCR Ref Test Perform Site 05/10/20 05/10/20 05/11/20 13:31 13:36 06:38 WBC RBC Hgb Hct MCV MCH MCHC RDW Plt Count MPV Immature Gran % Neutrophils % Lymphocytes % Monocytes % Eosinophils % Basophils % Nucleated RBC % Absolute Neutrophils Absolute Lymphocytes Absolute Monocytes Absolute Eosinophils Absolute Basophils Sodium 136 Potassium 3.5 Chloride 102 Carbon Dioxide 25.5 Anion Gap 8.5 BUN 11 Creatinine 0.69 L Estimated GFR/1.73 m2 >= 60.00 Glucose 85 Calcium 7.9 L Magnesium 1.7 L Total Bilirubin 1.6 H Conjugated Bilirubin 0.42 H AST 59 H ALT 49 Alkaline Phosphatase 40 L Total Protein 7.7 Albumin 3.1 L Triglycerides 71 Total Cholesterol 187 LDL Cholesterol, Calc 124 H HDL Cholesterol 49 Lipase Urine Color Urine Clarity Urine pH Ur Specific [place] Urine Protein Urine Ketones Urine Blood Urine Nitrite Urine Bilirubin Urine Urobilinogen Ur Leukocyte Esterase Urine RBC Urine WBC Ur Epithelial Cells Urine Crystals Urine Bacteria Urine Casts Urine Mucus Ur Culture Indicated? Urine Glucose Salicylates Urine Opiates Screen Urine Methadone Screen Acetaminophen Ur Barbiturates Screen Ur Tricyclics Screen Ur Amphetamines Screen U Benzodiazepines Scrn Urine Cocaine Screen Ur THC Screen Ethyl Alcohol 40.1 COVID-19 PCR Negative Nasopharyn COVID-19 PCR Not Applicable Ref Test Perform Site [facility] 05/11/20 06:38 WBC 5.38 RBC 4.10 L Hgb 12.4 L Hct 39.5 L MCV 96.3 H MCH 30.2 MCHC 31.4 L RDW 14.3 H Plt Count 188 MPV 10.8 Immature Gran % 0.4 Neutrophils % 63.4 Lymphocytes % 20.4 Monocytes % 10.8 Eosinophils % 4.3 Basophils % 0.7 Nucleated RBC % 0 Absolute Neutrophils 3.41 Absolute Lymphocytes 1.10 L Absolute Monocytes 0.58 Absolute Eosinophils 0.23 Absolute Basophils 0.04 Sodium Potassium Chloride Carbon Dioxide Anion Gap BUN Creatinine Estimated GFR/1.73 m2 Glucose Calcium Magnesium Total Bilirubin Conjugated Bilirubin AST ALT Alkaline Phosphatase Total Protein Albumin Triglycerides Total Cholesterol LDL Cholesterol, Calc HDL Cholesterol Lipase Urine Color Urine Clarity Urine pH Ur Specific [place] Urine Protein Urine Ketones Urine Blood Urine Nitrite Urine Bilirubin Urine Urobilinogen Ur Leukocyte Esterase Urine RBC Urine WBC Ur Epithelial Cells Urine Crystals Urine Bacteria Urine Casts Urine Mucus Ur Culture Indicated? Urine Glucose Salicylates Urine Opiates Screen Urine Methadone Screen Acetaminophen Ur Barbiturates Screen Ur Tricyclics Screen Ur Amphetamines Screen U Benzodiazepines Scrn Urine Cocaine Screen Ur THC Screen Ethyl Alcohol COVID-19 PCR Nasopharyn COVID-19 PCR Ref Test Perform Site Objective Narrative Objective Narrative: CT abdomen/pelvis: 1. Fatty infiltration of the liver. Suspicious for hepatic cirrhosis. 2. Postoperative changes seen in the lumbosacral spine. 3. No acute abdominal or pelvic process.
[2020-05-11] MEDS: Thiamine 100 MG TAB PO (08:46)
[2020-05-11] MEDS: Carvedilol 12.5 MG TAB PO ×2 (08:46→21:01)
[2020-05-11] MEDS: Citalopram 20 MG TAB PO (08:46)
[2020-05-11] MEDS: Magnesium Oxide 400 MG TAB PO (08:46)
[2020-05-11] MEDS: Folic Acid 1 MG TAB PO (08:46)
[2020-05-11] MEDS: Multivitamin TAB 1 TAB PO (08:46)
[2020-05-11] MEDS: Potassium Chloride 20 MEQ TABCR PO (08:46)
[2020-05-11] MEDS: Diclofenac 1% Gel 100 GM TUBE TP (08:47)
[2020-05-11] MEDS: Ondansetron 4 MG/2 ML VIAL IVP (08:48)
[2020-05-11] MEDS: MULTIVITAMIN 10 ML, THIAMINE 100 MG, FOLIC ACID 1 MG in DEXTROSE 5%-0.45% SALINE 1,000 ML 200 ML IV (08:48)
--- NOTE | 2020-05-11 08:57 | CMPROGNOTE_ITS ---
- If Service Date Differs Date of service: 05/10/20 Time of Service: 15:00 Care Management Progress Note Yasmani is a 50 year old male who presents to the ED for alcohol detox. [facility] Updated clinicals and Covid-19 test results will need to be provided when available.
--- NOTE | 2020-05-11 09:38 | INITIAL_ITS ---
- If Service Date Differs Date of service: 05/11/20 Time of Service: 09:38 Care Management Initial Assess REASON FOR HOSPITALIZATION:: alcohol withdrawal PAST MEDICAL HISTORY/PAST SURGICAL HISTORY:: Medical History . Alcohol abuse. Chronic back pain. Depression. Fatty liver. HTN (hypertension), benign. NERIS on CPAP. Prediabetes. Surgical History . History of back surgery. 11 surgeries in total. S/P tonsillectomy PREVIOUS FUNCTIONAL STATUS/SOCIAL/FAMILY SUPPORTS:: Shiva lives in [place] in a single family home with his Tasha. They have one son who is 26 and lives outside of the home. 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 He shared that someday he hopes to be able to take his and son to some of the places he visited. Shiva is independent with ADLs and receives no community services. CURRENT FUNCTIONAL STATUS:: Shiva was sitting up in bed when CM met with him. He had been dozing so he was a bit sleepy but pleasant and cooperative. Shiva stated that he met a [employer] [facility] yesterday and hopes to be able to enter rehab when he leaves the hospital. He stated that he feels ok but his back and head hurt a bit. ADVANCE DIRECTIVES:: None on file but states that he has them. Has patient been provided with info about the portal/API?: Yes Did the patient sign up for the portal?: Yes CODE STATUS:: Full Code INSURANCE COVERAGE / FINANCIAL ISSUES:: Medicaid CURRENT HOME/COMMUNITY SERVICES/EQUIPMENT:: none PRIMARY CARE PHYSICIAN:: Vilma De La Rosa POTENTIAL DISCHARGE NEEDS:: Substance abuse treatment program. [employer] [facility] PATIENT/FAMILY EDUCATION NEEDS:: Discharge plan, limitations, follow up plan, [employer] TRANSPORTATION:: via private vehicle with PLAN:: Shiva will be discharged home with no new services vs transfer to an inpatient substance abuse treastment faacility. He will follow up with his PCP and discharge plan of care. CM will continue to support patient, family and discharge planning needs.
--- NOTE | 2020-05-11 11:12 | PHA.REVIEW ---
Pharmacy Admission Review - Admission Clinical Review (Last Reviewed 05/10/20 @ 15:39 by ELADIO Benavides) Discharge planning issues (Acute) DVT prophylaxis (Acute) Alcohol withdrawal (Acute) Acute depression (Acute) No Known Allergies Allergy (Unverified 05/10/20 09:46) Height 5 ft 4 in Weight 93.8 kg - Renal Dosing Renal Dosing: BUN 11 mg/dL (7-18) 05/11/20 06:38 Creatinine 0.69 mg/dL (0.70-1.30) L 05/11/20 06:38 Medications needing adjustments: Reviewed (Crcl ~90 mL/min current meds okay.) - Anticoagulation Anticoagulation: Hgb 12.4 g/dL (13.5-17.5) L 05/11/20 06:38 Hct 39.5 % (40.0-50.0) L 05/11/20 06:38 Plt Count 188 10^3/uL (130-400) 05/11/20 06:38 Creatinine 0.69 mg/dL (0.70-1.30) L 05/11/20 06:38 DVT Prohphylaxis: Reviewed Medications: Heparin - Opiate Usage Evaluate Pain Scale/Pains Meds: N/A - Relevant Labs Sodium 136 mmol/L (136-145) 05/11/20 06:38 Potassium 3.5 mmol/L (3.5-5.1) 05/11/20 06:38 Chloride 102 mmol/L (98-107) 05/11/20 06:38 Magnesium 1.7 mg/dL (1.8-2.4) L 05/11/20 06:38 Electrolytes, C-Reactive P, ESR: Reviewed (PO and IV mag replacement ordered) - DM Control DM Control: Glucose 85 mg/dL (74-106) 05/11/20 06:38 Insulin Dosing: N/A - Heart Failure/NM EF%, ROSALIE's, B-Blockers, Diuretics: N/A - BP Control BP Control: Blood Pressure [Left Arm] 176/91 Blood Pressure 176/91 Blood Pressure 137/81 Blood Pressure 161/91 Blood Pressure 157/83 Blood Pressure 148/89 Blood Pressure 137/78 Blood Pressure 140/79 Blood Pressure 122/67 If elevated: Reviewed (BP has been normal to high) - Qtc Review If Elevated: N/A (QTc 443) - IV to PO Switch IV Medications: Intervened (Pt. asked provider if pt needed IV multivitamins, folic acid and thiamine as pt is taking PO meds.) - Home Meds Home Med List reviewed: Intervened (Discontinued DI meds (already given).) Relevent Home Meds Not ordered & why?: chlorthalidone, potassium (was discontinued) - Comments Comments/Follow Ups: Watch BP, mag, K+, acetaminophen dosing (max 2 grams in 24 hours) and for med changes (IV to PO, home meds).
[2020-05-11] MEDS: MAGNESIUM SULFATE 4 GM/100 ML BAG IVPB (12:28)
[2020-05-11] MEDS: THIAMINE 500 MG in Normal Saline 100 ML 200 MG IVPB ×2 (13:23→22:09)
--- NOTE | 2020-05-11 13:33 | DI.US_ITS ---
EXAM: US ABDOMEN LIMITED CLINICAL HISTORY: cirrhosis, liver lesion TECHNIQUE: Ultrasound abdomen performed using standard protocol. COMPARISON: CT CT ABDOMEN PELVIS W from 05/10/2020 FINDINGS: LIVER: The liver has a nodular contour suggesting hepatic cirrhosis. There is increased echogenicity of the liver suggesting fatty infiltration. The liver measures 20.3 cm in length. Hepatopedal flow in the Portal Vein. GALLBLADDER: No evidence of cholelithiasis. No evidence of wall thickening. No pericholecystic fluid identified. Echogenic material is seen within the gallbladder which may represent sludge. BILIARY SYSTEM: Common bile duct measures < 7 mm. No intrahepatic biliary ductal dilation. DUNNE'S SIGN: Negative. ASCITES: None seen. IMPRESSION: 1. The tiny hypodensities seen on the CT scan is too small and cannot be visualized sonographically. Statistically, this likely reflects a cyst. 2. Debris seen within the gallbladder which may represent sludge. 3. Hepatomegaly. Finding sonographically suggesting hepatic cirrhosis. DATA REPOSITORY:
--- NOTE | 2020-05-11 14:34 | CHAPLAIN ---
Yasmani was resting in bed when I visited. He said he comfortable. I explained my role and offered support.
[2020-05-11] MEDS: POTASSIUM CHLORIDE/0.9% NACL 1,000 ML 150 MEQ IV (14:39)
--- NOTE | 2020-05-11 15:04 | W.NUTRFU ---
Date of service: 05/11/20 Time of Service: 15:04 Nutritional Follow up NOTE: 50 year old male admitted to ICU for ETOH withdrawl with pancreatitis. PMH: Obesity, HTN. Labs indicate elevated lipase ( 481) currently NPO and tolerating ice chips. DAY 2 NPO. Meds include MVI, thiamin, folic acid. Currently at nutritional risk. Will continue to follow. Time Spent in Nutritional Counseling and Treatment: 0 time spent face to face
[2020-05-11] MEDS: Pantoprazole 40 MG VIAL IVP (21:01)
[2020-05-11] MEDS: Heparin 5,000 UNITS/ML VIAL 5000 UNITS SC (22:10)
[2020-05-12] VITALS (27 sets, daily range): BP systolic 108–160; BP diastolic 37–94; PULSE 50–63; RESP 9–19; TEMP 36.2–37.2; O2SAT 90–97
[2020-05-12] MEDS: POTASSIUM CHLORIDE/0.9% NACL 1,000 ML 150 MEQ IV ×2 (01:03→09:03)
[2020-05-12] MEDS: THIAMINE 500 MG in Normal Saline 100 ML 200 MG IVPB ×3 (05:55→21:55)
[2020-05-12 06:52] LABS: Abs Immature Grans 0.03 10^3/uL (0.0-0.06); Absolute Basophil Count 0.05 10^3/uL (0.0-0.2); Absolute Eosinophil Count 0.29 10^3/uL (0.0-0.7); Absolute Lymphocyte Count 1.24 10^3/uL (1.2-3.4); Absolute Monocyte Count 0.66 10^3/uL (0.1-0.8); Absolute Neutrophil Count 3.93 10^3/uL (1.2-6.7); Basophils % 0.8; Eosinophils % 4.7; HCT 39.1 % (40.0-50.0); HGB 13.1 g/dL (13.5-17.5); Immature Grans % 0.5; MCH 31.4 pg (27.0-33.0); MCHC 33.5 % (32.0-36.0); MCV 93.8 fL (80-95); MPV 10.6 fL (8.0-11.0); Monocytes % 10.6; Neutrophils % 63.4; Nucleated RBC 0 %; Platelet Count 182 10^3/uL (130-400); RBC 4.17 10^6/uL (4.36-5.78); RDW 13.7 % (11.8-14.1)
[2020-05-12 07:11] LABS: ALT 43 U/L (16-63); AST 48 U/L (15-37); Albumin 3.2 g/dL (3.4-5.0); Alkaline Phosphatase 43 U/L (46-116); BUN 7 mg/dL (7-18); Bilirubin, Direct 0.42 mg/dL (0.00-0.20); Bilirubin, Total 1.5 mg/dL (0.2-1.0); CREATININE 0.71 mg/dL (0.70-1.30); Calcium 8.1 mg/dL (8.5-10.1); Chloride 100 mmol/L (98-107); Glucose 74 mg/dL (74-106); Lipase 105 U/L (73-393); Magnesium 2.2 mg/dL (1.8-2.4); Potassium 4.1 mmol/L (3.5-5.1); Sodium 132 mmol/L (136-145); Total Protein 7.9 g/dL (6.4-8.2)
[2020-05-12 07:18] LABS: TSH 3.37 uIU/mL (0.36-3.74)
--- NOTE | 2020-05-12 08:43 | CMPROGNOTE_ITS ---
Care Management Progress Note S/O: Yasmani was transferred from the ICU to Med/Surg today. He reportedly changed his mind and no longer wants to seek treatment at at this time. Suppository Molding Machine Operator will continue to follow Yasmani in the community. CM continues to follow at [facility]. A: 50 year old male admitted to [facility] 05/10/20 for acute pancreatitis, alcohol wi thdrawal P: Shiva will be discharged home with no new services. He will follow up with his PCP and discharge plan of care. CM will continue to support patient, family and discharge planning needs.
--- NOTE | 2020-05-12 08:43 | PDOC.CMPRO ---
Care Management Progress Note S/O: Yasmani was transferred from the ICU to Med/Surg today. He reportedly changed his mind and no longer wants to seek treatment at at this time. Garbage Truck Driver will continue to follow Yasmani in the community. CM continues to follow at [facility]. A: 50 year old male admitted to [facility] 05/10/20 for acute pancreatitis, alcohol withdrawal P: Shiva will be discharged home with no new services. He will follow up with his PCP and discharge plan of care. CM will continue to support patient, family and discharge planning needs.
[2020-05-12] MEDS: Pantoprazole 40 MG VIAL IVP (09:03)
[2020-05-12] MEDS: Magnesium Oxide 400 MG TAB PO (09:04)
[2020-05-12] MEDS: Acetaminophen 325 MG TAB PO ×3 (09:04→21:52)
[2020-05-12] MEDS: Folic Acid 1 MG TAB PO (09:05)
[2020-05-12] MEDS: Citalopram 20 MG TAB PO (09:05)
[2020-05-12] MEDS: Normal Saline Flush 10 ML SYR IVP ×2 (09:05→21:53)
[2020-05-12] MEDS: Multivitamin TAB 1 TAB PO (09:05)
[2020-05-12] MEDS: Carvedilol 12.5 MG TAB PO ×2 (09:05→19:23)
[2020-05-12] MEDS: Heparin 5,000 UNITS/ML VIAL 5000 UNITS SC ×2 (10:22→21:54)
--- NOTE | 2020-05-12 13:12 | PGE_ITS ---
Date of Service Date of service: 05/12/20 Time of Service: 13:12 Assessment and Plan Assessment and plan (1) Alcohol withdrawal: Status: Acute Assessment and plan: Patient continues to do well has not required any phenobarbital supplementation in the past 18 hours. He did require multiple doses yesterday but I think that he should have an adequate level now and with the long half-life of phenobarbital he should continue to do well from a withdrawal standpoint. We will continue to monitor his CIWA score but at this time I think he can be transferred out of the intensive care unit to the medical/surgical floor. (2) Pancreatitis: Status: Chronic Assessment and plan: Lipase is normalized and symptoms have resolved. He is tolerating a regular bland diet. We will continue to monitor his LFTs along with his renal function electrolytes and CBC. Patient has findings on ultrasound and CT scan compatible with cirrhosis but no acute inflammatory changes around his pancreas. Ultrasound also showed some gallbladder sludge with no biliary obstruction.. (3) Alcoholic gastritis without bleeding: Status: Suspected Assessment and plan: We will change his Protonix from IV to p.o. meds. He will need further outpatient work-up given his Hemoccult positive stool (4) Cirrhosis, alcoholic: Status: Chronic Assessment and plan: Ultrasonographic and CT evidence of cirrhosis. Patient reportedly had previous liver biopsy showing fatty liver changes but I suspect this is really more an alcoholic basis. Will need follow-up as an outpatient (5) Depression: Status: Chronic Assessment and plan: Continue citalopram (6) Chronic pain: Status: Chronic Assessment and plan: DC morphine. Patient needs to find a way to treat his chronic back pain with something other than NSAIDs or narcotics. Recommend referral to pain clinic and/or spine clinic at [facility] (7) Hypomagnesemia: Status: Acute Assessment and plan: Continue oral supplementation (8) DVT prophylaxis: Status: Acute Assessment and plan: Lovenox discontinued in favor of SCDs and Zhou keen (9) Discharge planning issues: Status: Acute Assessment and plan: Transfer to medical/surgical floor with possible discharge in the next 24 to 48 hours. Will need referral for alcohol abstinence counseling Subjective Subjective Interval history since last seen: Patient denies any nausea or vomiting. He has no abdominal pain. He is tolerating his diet quite well. He has had no sweats and no shakes or tremors. His CIWA score this morning and this afternoon have been between 2 and 3. He has not required any phenobarbital since 7 PM last night. At this point I think he is doing well enough from his acute alcohol withdrawal that he can be transferred to the medical/surgical floor. His pancreatitis seems to have resolved. His stool is positive for Hemoccult blood but there is been no grossly bloody bowel movements. I suspect he prior some alcoholic gastritis going on but will need to have further follow-up as an outpatient including colonoscopy if this has not been done in the last couple years. Itzel riveraeat is called to inquire about whether or not his serum sodium was repeated this morning. It was low at 132. However he is asymptomatic from this. I will recheck his electrolytes in the morning along with a CBC. At this point, discontinue his IV fluids now that he is tolerating his diet. Exam Narrative Exam Narrative: Middle-age male sitting up in bed watching TV in no distress. He is alert and oriented person place time circumstance. HEENT is unremarkable. Lungs clear to auscultation Heart is regular rate and rhythm. Abdomen soft and nontender with normal active bowel sounds. Neurologic exam he is alert and oriented person place time circumstance no focal motor or sensory deficits. He has normal range of motion and strength. He has no tremors. Objective Last Vital Signs Temp 36.3 C L 05/12/20 11:08 Pulse 53 L 05/12/20 11:00 Resp 16 05/12/20 11:00 BP 108/37 L 05/12/20 11:00 Pulse Ox 95 05/12/20 11:00 Laboratory Results - last 24 hr 05/12/20 05/12/20 05/12/20 06:15 06:15 06:15 WBC 6.20 RBC 4.17 L Hgb 13.1 L Hct 39.1 L MCV 93.8 MCH 31.4 MCHC 33.5 RDW 13.7 Plt Count 182 MPV 10.6 Immature Gran % 0.5 Neutrophils % 63.4 Lymphocytes % 20.0 Monocytes % 10.6 Eosinophils % 4.7 Basophils % 0.8 Nucleated RBC % 0 Absolute Neutrophils 3.93 Absolute Lymphocytes 1.24 Absolute Monocytes 0.66 Absolute Eosinophils 0.29 Absolute Basophils 0.05 Sodium 132 L Potassium 4.1 Chloride 100 Carbon Dioxide 24.0 Anion Gap 8.0 BUN 7 Creatinine 0.71 Estimated GFR/1.73 m2 >= 60.00 Glucose 74 Calcium 8.1 L Magnesium 2.2 Total Bilirubin 1.5 H Conjugated Bilirubin 0.42 H AST 48 H ALT 43 Alkaline Phosphatase 43 L Total Protein 7.9 Albumin 3.2 L Lipase 105 TSH 3.37
--- NOTE | 2020-05-12 15:42 | NUR.NOTE ---
Pt transferred from room 222 in the ICU to room 211.Nursing Note:
[2020-05-12 19:18] LABS: Sodium 129 mmol/L (136-145)
[2020-05-12] MEDS: Pantoprazole 40 MG TABCR PO (19:23)
[2020-05-13 03:36] VITALS: BP 125/77; PULSE 56; RESP 17; TEMP 38; O2SAT 95
[2020-05-13 03:56] VITALS: TEMP 38
[2020-05-13] MEDS: Acetaminophen 325 MG TAB PO ×2 (03:56→07:56)
[2020-05-13] MEDS: THIAMINE 500 MG in Normal Saline 100 ML 200 MG IVPB (05:48)
[2020-05-13] MEDS: Normal Saline Flush 10 ML SYR IVP (05:48)
[2020-05-13] MEDS: Folic Acid 1 MG TAB PO (07:53)
[2020-05-13] MEDS: Magnesium Oxide 400 MG TAB PO (07:53)
[2020-05-13] MEDS: Citalopram 20 MG TAB PO (07:53)
[2020-05-13] MEDS: Carvedilol 12.5 MG TAB PO (07:53)
[2020-05-13] MEDS: Pantoprazole 40 MG TABCR PO (07:54)
[2020-05-13] MEDS: Multivitamin TAB 1 TAB PO (07:54)
[2020-05-13 08:13] LABS: HCT 39.2 % (40.0-50.0); MCHC 33.2 % (32.0-36.0); MCV 93.6 fL (80-95); MPV 10.7 fL (8.0-11.0); Platelet Count 196 10^3/uL (130-400); RBC 4.19 10^6/uL (4.36-5.78); RDW 13.5 % (11.8-14.1); RDW-SD 46.1 fL; WBC 6.74 10^3/uL (4.4-10.8)
[2020-05-13 08:26] VITALS: BP 131/85; PULSE 68; RESP 15; TEMP 37; O2SAT 96
[2020-05-13 08:28] LABS: ALT 37 U/L (16-63); AST 40 U/L (15-37); Albumin 3.2 g/dL (3.4-5.0); Alkaline Phosphatase 41 U/L (46-116); Anion Gap 9.3 mmol/L (3-11); BUN 10 mg/dL (7-18); Bilirubin, Total 1.1 mg/dL (0.2-1.0); CO2 23.7 mmol/L (21.0-32.0); Calcium 8.5 mg/dL (8.5-10.1); Chloride 101 mmol/L (98-107); Glucose 86 mg/dL (74-106); Lipase 102 U/L (73-393); Sodium 134 mmol/L (136-145); Total Protein 7.9 g/dL (6.4-8.2)
[2020-05-13] MEDS: Heparin 5,000 UNITS/ML VIAL 5000 UNITS SC (10:26)
[2020-05-13 11:15] VITALS: BP 108/69; PULSE 58; RESP 17; TEMP 37.2; O2SAT 96
--- NOTE | 2020-05-13 11:45 | DSE_ITS ---
Date of service: 05/13/20 Time of Service: 11:45 DS: Diagnosis Discharge Diagnosis (1) Alcohol withdrawal: Start date: 05/13/20 Start time: 11:45 Status: Acute Asessment and Plan: Last drink 05/09. He was initially admitted to ICU for withdrawal, he was drinking 1/2 gallon of vodka every 2 days, CIWA score overnight was 0-2, He is doing well, no signs of withdrawal. He has decided to not go to [place] he has a plan for population health coach, [facility] program, therapist and family support. (2) Pancreatitis: Start date: 05/13/20 Start time: 11:49 Status: Chronic Asessment and Plan: Improved. No pain, tolerating diet. (3) Alcoholic gastritis without bleeding: Start date: 05/13/20 Start time: 11:49 Status: Ruled-out Asessment and Plan: Continue PPI (4) Cirrhosis, alcoholic: Start date: 05/13/20 Start time: 11:50 Status: Chronic Asessment and Plan: Ultrasonographic and CT evidence of cirrhosis. Patient reportedly had previous liver biopsy showing fatty liver changes but I suspect this is really more an alcoholic basis. Will need follow-up as an outpatient (5) Depression: Start date: 05/13/20 Start time: 11:50 Status: Chronic Asessment and Plan: Continue citalopram (6) Chronic pain: Start date: 05/13/20 Start time: 11:51 Status: Chronic Asessment and Plan: Patient needs to find a way to treat his chronic back pain with something other than NSAIDs or narcotics. Recommend referral to pain clinic and/or spine clinic at [facility] (7) Hypomagnesemia: Start date: 05/13/20 Start time: 11:51 Status: Resolved Asessment and Plan: resolved, with repletetion Discharge Plan Disposition Patient Disposition: HOME Condition: Improving Discharge Details Reason For Visit: ACUTE PANCREATITIS, ALCHOHOL WITHDRAWAL, ALCOHOL I Admit Date/Time: 05/10/20 15:02 Admit Provider: Elise Price Attending Provider: Elise Price Primary Care Provider: Vilma Givens [place] [facility] Hospital Course: Mr Glaser is a 50 year old male with PMHx of alcohol abuse (last sober in 2004), as well as h/o HTN, chronic pain, depression, who called mental health night of admission asking for help quitting drinking, and was asked to go to the ED, where he had a CIWA score of 20 and was reporting epigastric pain with an elevated lipase, c/w pacreatitis. He was admitted to ICU for further management of his alcohol withdrawal. He was started on phenobarbital in the ICU. His highest CIWA was 15 on 05/11. He was also found to have an elevated lipase with abdominal pain. Eventually he was stable enough not requiring intubation or IV phenobarb and transferred to /. He was also able to tolerate a soft diet with normalization of lipase. Today he looks well. He has decided he does no want to go to [place], CM has given him information on [facility], he has a population health coach and a therapist he would like to reach out to in the community for further management. He denies CP, SOB, N/V/D. Home Meds and New Rx's Prescriptions: New folic acid 1 mg Tablet 1 mg PO DAILY Qty: 20 RF: 0 multivitamin [Multiple Vitamins] Tablet 1 tab PO DAILY Qty: 30 RF: 0 pantoprazole 40 mg Tablet,Delayed Release (Dr/Ec) 40 mg PO BID@ Qty: 60 RF: 0 thiamine mononitrate (vit B1) [Vitamin B-1 (mononitrate)] 100 mg Tablet 100 mg PO DAILY Qty: 10 RF: 0 Continued carvedilol 12.5 mg Tablet 12.5 mg PO BID RF: 0 chlorthalidone 25 mg tablet 25 mg PO DAILY RF: 0 triamcinolone acetonide 0.1 % cream 1 applic TOPICAL DIRECTED RF: 0 citalopram 20 mg Tablet 20 mg PO DAILY RF: 0 potassium chloride 20 mEq tablet,ER particles/crystals 20 meq PO DAILY RF: 0 magnesium oxide 400 mg (241.3 mg magnesium) tablet 400 mg PO DAILY RF: 0 diclofenac sodium 1 % gel 1 applic TOPICAL TID RF: 0 Discharge Instructions Instructions: Pancreatitis (DC), Alcohol Intoxication (DC), Abuse of Alcohol (DC), Alcohol Dependence (DC) Stand Alone Forms: Nursing Discharge Form Referrals: Vilma Givens [Primary Care Provider] - Activity:: Activity as Tolerated Equipment/Supplies:: No Equipment Needed Diet:: As Tolerated Discharge Orders Discharge Orders: Discharge Order (Routine); Ordered 05/13/20 Ordered By: Janina Rahman DS: Summary Status at Discharge Functional status at discharge: independent ambulation Overall status at discharge: patient is back to baseline Mental Status: mental status grossly normal Speech and Movement: speech and movement normal Mood: congruent mood Affect: normal affect Exam Narrative Exam Narrative: Middle-age male ambulatory around hallway and back to room. He is alert and oriented person place time circumstance. HEENT is unremarkable. Lungs clear to auscultation Heart is regular rate and rhythm. Abdomen soft and nontender with normal active bowel sounds. Neurologic exam he is alert and oriented person place time circumstance no focal motor or sensory deficits. He has normal range of motion and strength. He has no tremors. Psych Mental Status: mental status grossly normal Speech and Movement: speech and movement normal Mood: congruent mood Affect: normal affect DS: Data Vitals/I&O Vitals and I&O: Vital Signs Temperature 37 C 05/13/20 08:26 Temperature Source Tympanic 05/13/20 08:26 Pulse 68 05/13/20 08:26 Pulse Rhythm Regular 05/12/20 23:50 Pulse 54 L 05/12/20 14:00 Respiratory Rate 15 05/13/20 08:26 Respiratory Effort 05/12/20 23:50 Respiratory Depth Normal 05/12/20 23:50 Respiratory Pattern Normal 05/12/20 23:50 Blood Pressure 131/85 05/13/20 08:26 Blood Pressure Mean 89 05/12/20 14:00 Blood Pressure Position Supine 05/12/20 11:00 Pulse Oximetry 96 05/13/20 08:26 Oxygen Delivery Method Room Air 05/13/20 08:26 Oxygen Flow Rate 0 05/13/20 08:26 Fraction of Inspired Oxygen (FIO2) 21 05/10/20 19:22 Pain Level 2 05/13/20 08:56 Intake & Output 05/12/20 05/12/20 05/13/20 11:59 23:59 11:59 Intake Total 1210 / 2660 1450 / 2660 735 / 735 Output Total 1900 / 2250 350 / 2250 1100 / 1100 Balance -690 / 410 1100 / 410 -365 / -365 Weight 93.3 kg 88.8 kg Intake: IV 1210 / 2420 1210 / 2420 105 / 105 Oral 240 / 240 630 / 630 Output: Urine 1900 / 2250 350 / 2250 1100 / 1100 Other: Urine Color Light Cyndy Straw Light Cyndy Urine Appearance Clear Clear Clear Urine Odor None Normal Normal Comment voids in urinal Stool Occult Blood Negative Stool Size Moderate Stool Characteristics Soft Brown Voiding Methods Urinal Urinal Urinal Data Completed and Pending Completed studies during hospitalization [Text1]: Exam(s) a US:US abdomen limited EXAM: US ABDOMEN LIMITED CLINICAL HISTORY: cirrhosis, liver lesion TECHNIQUE: Ultrasound abdomen performed using standard protocol. COMPARISON: CT CT ABDOMEN PELVIS W from 05/10/2020 FINDINGS: LIVER: The liver has a nodular contour suggesting hepatic cirrhosis. There is increased echogenicity of the liver suggesting fatty infiltration. The liver measures 20.3 cm in length. Hepatopedal flow in the Portal Vein. GALLBLADDER: No evidence of cholelithiasis. No evidence of wall thickening. No pericholecystic fluid identified. Echogenic material is seen within the gallbladder which may represent sludge. BILIARY SYSTEM: Common bile duct measures < 7 mm. No intrahepatic biliary ductal dilation. DUNNE'S SIGN: Negative. ASCITES: None seen. IMPRESSION: 1. The tiny hypodensities seen on the CT scan is too small and cannot be visualized sonographically. Statistically, this likely reflects a cyst. 2. Debris seen within the gallbladder which may represent sludge. 3. Hepatomegaly. Finding sonographically suggesting hepatic cirrhosis. Labs on day of discharge: Labs from last 24 hours 05/13/20 05/13/20 05/12/20 07:30 07:30 19:05 WBC 6.74 RBC 4.19 L Hgb 13.0 L Hct 39.2 L MCV 93.6 MCH 31.0 MCHC 33.2 RDW 13.5 Plt Count 196 MPV 10.7 Sodium 134 L 129 L Potassium 4.0 Chloride 101 Carbon Dioxide 23.7 Anion Gap 9.3 BUN 10 Creatinine 0.70 Estimated GFR/1.73 m2 >= 60.00 Glucose 86 Calcium 8.5 Total Bilirubin 1.1 H AST 40 H ALT 37 Alkaline Phosphatase 41 L Total Protein 7.9 Albumin 3.2 L Lipase 102 PFSH Medical History Alcohol abuse Chronic back pain Depression Fatty liver HTN (hypertension), benign NERIS on CPAP Prediabetes Surgical History History of back surgery 11 surgeries in total S/P tonsillectomy Family History Father Heart disease Diabetes Cancer pancreatic cancer Social History Smoking/Tobacco Use Status: Never Alcohol Intake: current Alcohol Intake frequency: 3 or more drinks per day Alcohol type: hard liquor Drug use: Never Substance use type: does not use and former substance user Date of last use: marijuana Do you feel safe at home: Yes Do you feel safe in your relationship?: Yes
--- NOTE | 2020-05-13 13:44 | CMDISCH_ITS ---
LACE Index Scoring Tool - Questions: Length of Stay (in days): 3 Acuity (Admit via E.D.?): Yes Comorbidities: Liver or Renal Disease E.D. Visits: 1 - Answers: Total Score: 12 Risk of Readmission: High Risk Care Management Discharge Reason for Hospitalization: alcohol withdrawal Discharge Plan: Yasmani will return home with his family in [place], he reports having a follow up plan mapped out with his swimming coach or instructor, Ivette that includes follow up with his therapist. He shares feeling proud that he sought help and f eeling now that its out in the open that he will have the family support he needs to abstain from alcohol. CM reviewed community based supports and online meetings; Yasmani showed interest in [facility] recovery meetings and access the online platform with CM present. He will follow up with his providers in the community and transport via private vehicle with his and [id number]. Patient/Family Education Needs: Review discharge instructions, [facility] resources, discuss Ask Me Three.
== END 2020-05-13 14:23 | disposition home or self-care (01) | DRG 897 ==
LOC: ER 16:37 → ICU 16:39 → MS 05-12 14:51
PROVIDERS: Family Medicine; General Practice; Internal Medicine; Admitting Provider Internal Medicine; Emergency Provider Physician Assistant; PCP Internal Medicine; Visit Provider Internal Medicine
DX: F10.139 Alcohol abuse with withdrawal, unspecified (principal); K86.1 Other chronic pancreatitis; K29.20 Alcoholic gastritis without bleeding; K70.30 Alcoholic cirrhosis of liver without ascites; F32.9 Major depressive disorder, single episode, unspecified; G89.29 Other chronic pain; E83.42 Hypomagnesemia; I10 Essential (primary) hypertension; G47.33 Obstructive sleep apnea (adult) (pediatric); K76.0 Fatty (change of) liver, not elsewhere classified; R73.03 Prediabetes; H55.09 Other forms of nystagmus; R19.5 Other fecal abnormalities
CPT/HCPCS: 36415; 80048; 80053; 80061; 80076; 80307; 83690; 85027; 90686; 93005; 96361; 96374; 99232; 99239; 99285; 99291; J1650; U0003; 74177; 76705; 80320; 80329; 81003; 81015; 83735; 84295; 84443; 85025; 93010; 94660; J1644; J1885; J2405; J2560; J3475; J3490

== ENCOUNTER 2020-06-05 08:28 | Outpatient (REF) | payer MEDICAID, SELFPAY ==
[2020-06-05 22:17] LABS: HCT 42.4 % (40.0-50.0); HGB 13.7 g/dL (13.5-17.5); MCH 30.4 pg (27.0-33.0); MCHC 32.3 % (32.0-36.0); MCV 94.2 fL (80-95); MPV 10.6 fL (8.0-11.0); Platelet Count 303 10^3/uL (130-400); RDW 12.9 % (11.8-14.1); RDW-SD 44.7 fL
[2020-06-05 22:38] LABS: ALT 33 U/L (16-63); AST 31 U/L (15-37); Albumin 3.7 g/dL (3.4-5.0); Alkaline Phosphatase 51 U/L (46-116); Anion Gap 9.5 mmol/L (3-11); BUN 16 mg/dL (7-18); Bilirubin, Total 0.4 mg/dL (0.2-1.0); CO2 28.5 mmol/L (21.0-32.0); CREATININE 0.89 mg/dL (0.70-1.30); Calcium 8.8 mg/dL (8.5-10.1); Chloride 100 mmol/L (98-107); Glucose 146 mg/dL (74-106); Lipase 201 U/L (73-393); Potassium 3.9 mmol/L (3.5-5.1); Sodium 138 mmol/L (136-145); Total Protein 8.5 g/dL (6.4-8.2)
== END 2020-06-05 08:48 ==
LOC: NCHCN 08:28
PROVIDERS: PCP Internal Medicine; Visit Provider Nurse Practitioner Family
DX: F10.10 Alcohol abuse, uncomplicated (principal); K74.60 Unspecified cirrhosis of liver; D64.9 Anemia, unspecified; Z87.19 Personal history of other diseases of the digestive system; E83.42 Hypomagnesemia
CPT/HCPCS: 80053; 83690; 85027; 83735

== ENCOUNTER 2020-12-14 09:10 | Outpatient (REF) | payer MEDICAID, SELFPAY ==
[2020-12-14 13:41] LABS: ALT 22 U/L (16-63); AST 19 U/L (15-37); Albumin 3.8 g/dL (3.4-5.0); Alkaline Phosphatase 89 U/L (46-116); Anion Gap 7.8 mmol/L (3-11); BUN 22 mg/dL (7-18); Bilirubin, Total 0.6 mg/dL (0.2-1.0); CO2 31.2 mmol/L (21.0-32.0); CREATININE 0.8 mg/dL (0.70-1.30); Chloride 103 mmol/L (98-107); Glucose 186 mg/dL (74-106); Potassium 4.5 mmol/L (3.5-5.1); Sodium 142 mmol/L (136-145); Total Protein 8.3 g/dL (6.4-8.2)
[2020-12-14 14:02] LABS: Hemoglobin A1C 7.6 % (<5.7)
== END 2020-12-14 09:11 | disposition home or self-care (01) ==
LOC: NCHCN 09:10
PROVIDERS: PCP Internal Medicine; Visit Provider Nurse Practitioner Family
DX: R73.03 Prediabetes (principal); F10.21 Alcohol dependence, in remission
CPT/HCPCS: 80053; 83036

== ENCOUNTER 2021-09-25 21:01 | Outpatient (REF) | payer MEDICAID, SELFPAY ==
[2021-09-26 05:43] LABS: Vitamin D 25 Total 21.9 ng/mL (30-100)
== END 2021-09-25 21:02 | disposition home or self-care (01) ==
LOC: NCHCN 21:01
PROVIDERS: PCP Internal Medicine; Visit Provider Internal Medicine
DX: S22.42XA Multiple fractures of ribs, left side, initial encounter for closed fracture (principal)
CPT/HCPCS: 82306

== ENCOUNTER 2021-11-06 20:45 | Outpatient (REF) | payer MEDICAID, SELFPAY ==
[2021-11-06 21:01] LABS: Abs Immature Grans 0.07 10^3/uL (0.0-0.06); Absolute Basophil Count 0.04 10^3/uL (0.0-0.2); Absolute Eosinophil Count 0.15 10^3/uL (0.0-0.7); Absolute Lymphocyte Count 2.16 10^3/uL (1.2-3.4); Absolute Neutrophil Count 9.42 10^3/uL (1.2-6.7); Basophils % 0.3; Eosinophils % 1.2; HCT 41.9 % (40.0-50.0); Immature Grans % 0.6; Lymphocytes % 17.4; MCH 26.2 pg (27.0-33.0); MCV 84.3 fL (80-95); MPV 11.1 fL (8.0-11.0); Monocytes % 4.8; Neutrophils % 75.7; Nucleated RBC 0 %; Platelet Count 395 10^3/uL (130-400); RBC 4.97 10^6/uL (4.36-5.78); RDW 15.5 % (11.8-14.1); RDW-SD 47.1 fL; WBC 12.44 10^3/uL (4.4-10.8)
[2021-11-06 21:23] LABS: ALT 35 U/L (16-63); AST 22 U/L (15-37); Albumin 3.3 g/dL (3.4-5.0); Alkaline Phosphatase 114 U/L (46-116); Anion Gap 10.8 mmol/L (3-11); BUN 10 mg/dL (7-18); Bilirubin, Total 0.8 mg/dL (0.2-1.0); CO2 27.2 mmol/L (21.0-32.0); CREATININE 0.8 mg/dL (0.70-1.30); Chloride 104 mmol/L (98-107); Glucose 108 mg/dL (74-106); Potassium 4.1 mmol/L (3.5-5.1); Sodium 142 mmol/L (136-145); Total Protein 7.8 g/dL (6.4-8.2)
== END 2021-11-06 20:46 | disposition home or self-care (01) ==
LOC: LBN 20:45
PROVIDERS: PCP Internal Medicine; Visit Provider Internal Medicine
DX: I10 Essential (primary) hypertension (principal); K80.20 Calculus of gallbladder without cholecystitis without obstruction; K86.1 Other chronic pancreatitis
CPT/HCPCS: 80053; 85025

== ENCOUNTER 2022-01-09 18:07 | Outpatient (REF) | payer MEDICAID, SELFPAY ==
[2022-01-09 21:00] LABS: COMMENT (LAB VIEW ONLY) 107.67 mg/dL; Microalb ug/mg Crea 18.7 ug/mg Cr
== END 2022-01-09 18:08 | disposition home or self-care (01) ==
LOC: NCHCN 18:07
PROVIDERS: PCP Internal Medicine; Visit Provider Nurse Practitioner Family
DX: E11.9 Type 2 diabetes mellitus without complications (principal)
CPT/HCPCS: 82043; 82570

== ENCOUNTER 2022-05-12 10:14 | Outpatient (REF) | payer MEDICAID, SELFPAY ==
[2022-05-12 15:14] LABS: MCH 25.9 pg (27.0-33.0); MCHC 31.8 % (32.0-36.0); MCV 81 fL (80-95); MPV 10.1 fL (8.0-11.0); Platelet Count 272 10^3/uL (130-400); RBC 5.41 10^6/uL (4.36-5.78); RDW 14.6 % (11.8-14.1); RDW-SD 42.5 fL; WBC 6.38 10^3/uL (4.4-10.8)
[2022-05-12 16:03] LABS: ALT 23 U/L (16-63); AST 26 U/L (15-37); Albumin 3.8 g/dL (3.4-5.0); Alkaline Phosphatase 85 U/L (46-116); Anion Gap 7.7 mmol/L (3-11); BUN 13 mg/dL (7-18); Bilirubin, Total 0.4 mg/dL (0.2-1.0); CO2 26.3 mmol/L (21.0-32.0); CREATININE 0.8 mg/dL (0.70-1.30); Calcium 9.2 mg/dL (8.5-10.1); Calculated LDL 101 mg/dL (<100); Chloride 105 mmol/L (98-107); Cholesterol 154 mg/dL (<200); Estimated GFR 105.17 (mL/min/1.73m2); Glucose 119 mg/dL (74-106); HDL Cholesterol 43 mg/dL (40-60); Potassium 4.1 mmol/L (3.5-5.1); Sodium 139 mmol/L (136-145); Triglyceride 51 mg/dL (<150)
== END 2022-05-12 10:15 | disposition home or self-care (01) ==
LOC: NCHCN 10:14
PROVIDERS: PCP Internal Medicine; Visit Provider Nurse Practitioner Family
DX: I10 Essential (primary) hypertension (principal); E66.9 Obesity, unspecified; Z13.220 Encounter for screening for lipoid disorders; D64.9 Anemia, unspecified
CPT/HCPCS: 80053; 80061; 85027

== ENCOUNTER 2022-08-14 04:01 | Outpatient (CLI) | payer MEDICAID, SELFPAY ==
[2022-08-14 09:49] LABS: Abs Immature Grans 0.03 10^3/uL (0.0-0.06); Absolute Basophil Count 0.07 10^3/uL (0.0-0.2); Absolute Eosinophil Count 0.28 10^3/uL (0.0-0.7); Absolute Lymphocyte Count 2.02 10^3/uL (1.2-3.4); Absolute Monocyte Count 0.44 10^3/uL (0.1-0.8); Absolute Neutrophil Count 5.25 10^3/uL (1.2-6.7); Basophils % 0.9; Eosinophils % 3.5; HCT 45.5 % (40.0-50.0); HGB 14.1 g/dL (13.5-17.5); Immature Grans % 0.4; MCH 25.5 pg (27.0-33.0); MCV 82 fL (80-95); MPV 9.8 fL (8.0-11.0); Monocytes % 5.4; Neutrophils % 64.8; Platelet Count 275 10^3/uL (130-400); RBC 5.52 10^6/uL (4.36-5.78); RDW 14.5 % (11.8-14.1); RDW-SD 43.2 fL; WBC 8.09 10^3/uL (4.4-10.8)
[2022-08-14 10:34] LABS: ALT 20 U/L (16-63); AST 17 U/L (15-37); Albumin 4.1 g/dL (3.4-5.0); Alkaline Phosphatase 82 U/L (46-116); Anion Gap 8.3 mmol/L (3-11); BUN 13 mg/dL (7-18); Bilirubin, Total 0.4 mg/dL (0.2-1.0); CO2 27.7 mmol/L (21.0-32.0); CREATININE 0.8 mg/dL (0.70-1.30); Calcium 9.1 mg/dL (8.5-10.1); Calculated LDL 108 mg/dL (<100); Chloride 103 mmol/L (98-107); Cholesterol 157 mg/dL (<200); Estimated GFR 105.17 (mL/min/1.73m2); Folate 18.5 ng/mL (8.6-20.0); Glucose 114 mg/dL (74-106); HDL Cholesterol 42 mg/dL (40-60); Magnesium 1.9 mg/dL (1.8-2.4); Potassium 3.9 mmol/L (3.5-5.1); Sodium 139 mmol/L (136-145); TSH 1.78 uIU/mL (0.36-3.74); Total Protein 8.3 g/dL (6.4-8.2); Triglyceride 38 mg/dL (<150); Vitamin B12 472 pg/mL (193-986)
[2022-08-14 10:54] LABS: Lithium 0.5 mmol/l (0.6-1.2)
[2022-08-14 10:57] LABS: FREE T4 0.96 ng/dL (0.76-1.46)
[2022-08-14 14:54] LABS: Hemoglobin A1C 5.9 % (<5.7)
[2022-08-15 08:18] LABS: Homocysteine 9.4 umol/L (5.0-13.9)
== END 2022-08-14 04:02 | disposition home or self-care (01) ==
PROVIDERS: PCP Internal Medicine; Visit Provider Psychiatry & Neurology Psychiatry
DX: F31.63 Bipolar disorder, current episode mixed, severe, without psychotic features (principal); Z79.899 Other long term (current) drug therapy; Z51.81 Encounter for therapeutic drug level monitoring; I10 Essential (primary) hypertension; E11.9 Type 2 diabetes mellitus without complications; D64.9 Anemia, unspecified
CPT/HCPCS: 36415; 80053; 80061; 83090; 80178; 82607; 82746; 83036; 83735; 84439; 84443; 85025

== ENCOUNTER 2022-12-08 02:55 | Outpatient (CLI) | payer MEDICAID, SELFPAY ==
[2022-12-08 12:27] LABS: Lithium 0.8 mmol/l (0.6-1.2)
== END 2022-12-08 02:56 | disposition home or self-care (01) ==
LOC: LBO 02:55
PROVIDERS: PCP Internal Medicine; Visit Provider Nurse Practitioner Psychiatric/Mental Health
DX: F31.89 Other bipolar disorder (principal); Z51.81 Encounter for therapeutic drug level monitoring; Z79.899 Other long term (current) drug therapy
CPT/HCPCS: 36415; 80178

== ENCOUNTER 2023-01-26 13:07 | Outpatient (REF) | payer MEDICAID, SELFPAY ==
[2023-01-26 16:43] LABS: COMMENT (LAB VIEW ONLY) 105.86 mg/dL; Microalb ug/mg Crea 10.1 ug/mg Cr
== END 2023-01-26 13:08 | disposition home or self-care (01) ==
LOC: NCHCN 13:07
PROVIDERS: PCP Internal Medicine; Visit Provider Internal Medicine
DX: E11.9 Type 2 diabetes mellitus without complications (principal)
CPT/HCPCS: 82043; 82570

== ENCOUNTER 2023-03-26 13:01 | Emergency (ER) | payer MEDICAID, SELFPAY ==
[2023-03-26 13:02] VITALS: BP 129/77; PULSE 74; RESP 16; TEMP 36.7; O2SAT 97
--- NOTE | 2023-03-26 13:43 | W.ED.GENAD ---
Discharge Plan Disposition Patient Disposition: Home Condition: Stable Discharge Details Clinical Impression: Closed fracture of fifth metacarpal bone of left hand Primary Care Provider: Vilma Givens ED Provider: Issac Mckeon Home Meds and New Rx's Prescriptions: Continued trazodone 100 mg tablet 100 mg PO HS lithium carbonate 600 mg capsule 600 mg PO DAILY gabapentin 300 mg capsule 300 mg PO DAILY Patient Comments: Take 2 capsule by mouth three times a day lamotrigine [Lamictal] 100 mg tablet 100 mg PO TID Patient Comments: Take 1 tablet by mouth twice a day Continue to monitor for rash aripiprazole 10 mg tablet 10 mg PO DAILY Patient Comments: TAKE 1 TABLET BY MOUTH EVERY DAY cholecalciferol (vitamin D3) [Vitamin D3] 50 mcg (2,000 unit) tablet 2,000 unit PO DAILY Patient Comments: Take 1 tablet by mouth once a day Jardiance 10 mg tablet 10 mg PO DAILY Patient Comments: TAKE 1 TABLET BY MOUTH EVERY DAY disulfiram 250 mg Tablet 250 mg PO DAILY carvedilol 12.5 mg Tablet 12.5 mg PO BID triamcinolone acetonide 0.1 % cream 1 applic TOPICAL DIRECTED Patient Comments: BEN EXT AA BID PRN diclofenac sodium 1 % gel 1 applic TOPICAL TID Rx Instructions: apply to back and right upper arm pantoprazole 40 mg Tablet,Delayed Release (Dr/Ec) 40 mg PO BID@0730,1999 Qty: 60 0RF Discontinued chlorthalidone 25 mg tablet 25 mg PO DAILY Patient Comments: does not take citalopram 20 mg Tablet 20 mg PO DAILY Patient Comments: does not take potassium chloride 20 mEq tablet,ER particles/crystals 20 meq PO DAILY Patient Comments: does not take magnesium oxide 400 mg (241.3 mg magnesium) tablet 400 mg PO DAILY Patient Comments: does not take folic acid 1 mg Tablet 1 mg PO DAILY Qty: 20 0RF Patient Comments: does not take multivitamin [Multiple Vitamins] Tablet 1 tab PO DAILY Qty: 30 0RF Patient Comments: does not take thiamine mononitrate (vit B1) [Vitamin B-1 (mononitrate)] 100 mg Tablet 100 mg PO DAILY Qty: 10 0RF Patient Comments: does not take Discharge Instructions Instructions: Hand Fracture (ED) Additional Instructions: Please keep splint intact and follow-up with orthopedics. Please contact orthopedics to arrange follow-up. Return to the ER immediately for any worsening or new concerning symptoms. Referrals: [facility] [Provider Group] Medical Decision Making 200??53-year-old male here 1 week after punching a table with pain and swelling in his dorsal hand worse over fourth metacarpal. Neurovascular intact distally. Concern for fracture. Plan to obtain x-ray. I will give Tylenol and apply ice. --- x-ray of the left hand was reviewed and interpreted by radiology called comminuted angulated fracture of the distal fifth metacarpal bone. I will discuss case with orthopedics regarding follow-up treatment. 415 --I have not been able to discuss with orthopedics. Plan to splint with ulnar gutter and have patient follow-up with orthopedics. ELADIO Tom is applying splint. HPI General Date/Time Provider Initiated Documentation: 03/26/23 13:17. Limitations to Documentation: no limitations. Information obtained by: patient. HPI Narrative: 53-year-old male with history of anger outburst, presents with chief complaint of hand pain. Patient is about a week ago he was frustrated and punched a table. Has had pain and swelling in his hand since the injury. No associated numbness or tingling. He does have associated swelling of dorsal hand. Related Data Home Medications Medication Instructions Recorded Confirmed carvedilol 12.5 mg tablet 12.5 mg PO BID 05/10/20 03/26/23 diclofenac sodium 1 % topical gel 1 applic topical TID 05/10/20 03/26/23 triamcinolone acetonide 0.1 % 1 applic topical DIRECTED 05/10/20 03/26/23 topical cream pantoprazole 40 mg tablet,delayed 40 mg PO BID@0730,1999 #60 tabs 05/13/20 03/26/23 release aripiprazole 10 mg tablet 10 mg PO DAILY 03/26/23 03/26/23 cholecalciferol (vitamin D3) 50 2,000 unit PO DAILY 03/26/23 03/26/23 mcg (2,000 unit) tablet (Vitamin D3) disulfiram 250 mg tablet 250 mg PO DAILY 03/26/23 03/26/23 empagliflozin 10 mg tablet 10 mg PO DAILY 03/26/23 03/26/23 (Jardiance) gabapentin 300 mg capsule 300 mg PO DAILY 03/26/23 03/26/23 lamotrigine 100 mg tablet 100 mg PO TID 03/26/23 03/26/23 (Lamictal) lithium carbonate 600 mg capsule 600 mg PO DAILY 03/26/23 03/26/23 trazodone 100 mg tablet 100 mg PO HS 03/26/23 03/26/23 Previous Rx's Medication Instructions Recorded pantoprazole 40 mg tablet,delayed 40 mg PO BID@0730,1999 #60 tabs 05/13/20 release Allergies Allergy/AdvReac Type Severity Reaction Status Date / Time No Known Allergies Allergy Unverified 05/10/20 09:46 General Stated Complaint: Orthopedic GUSTAVO: 4 Review of Systems Musculoskeletal Musculoskeletal: Reports as per HPI Psychiatric Psychiatric: Reports depression Comments: Patient notes no active suicidality, he has had fleeting suicidality in the past. He is being cared for by [facility] human services and feels well supported [facility] All Active Problems (Updated 03/26/23 @ 16:20 by Issac Mckeon MD) Closed fracture of fifth metacarpal bone of left hand (Acute) Horizontal nystagmus (Acute) Cirrhosis, alcoholic (Chronic) Discharge planning issues (Acute) DVT prophylaxis (Acute) Chronic pain (Chronic) Depression (Chronic) Alcohol withdrawal (Acute) Pancreatitis (Chronic) Acute depression (Acute) Medical History Alcohol abuse Chronic back pain Depression Fatty liver HTN (hypertension), benign NERIS on CPAP Prediabetes Surgical History History of back surgery 11 surgeries in total S/P tonsillectomy Family History Father Heart disease Diabetes Cancer pancreatic cancer Social History Smoking/Tobacco Use Status: Never Tobacco: How many years used: 45 Smoking risk assessment performed?: Yes Alcohol Intake: current Alcohol Intake frequency: 3 or more drinks per day Alcohol type: hard liquor Drug use: Never Substance use type: does not use and former substance user Date of last use: marijuana Housing: house Do you feel safe at home: No (scared of self) Do you feel safe in your relationship?: Yes Additional Social history: struggling with mental ede issues, feels tired of life. Exam Const General: cooperative and no acute distress Neuro General: patient alert, patient awake and tone normal Extrem General: no edema Left upper extremity: hand Details: normal capillary refill, neuromotor exam normal, neurosensory exam normal and tenderness Location: of the dorsal hand Location: over the 3rd metacarpal, over the 4th metacarpal and over the 5th metacarpal Psych Appearance: grossly normal Mental Status: mental status grossly normal Speech and Movement: speech and movement normal Attitude: cooperative Thought Process: normal Thought Content: suicidality Insight: insight good Judgment: judgment good Course Vital Signs Vital signs: Vital Signs Temperature 36.7 C 03/26/23 13:02 Pulse 74 03/26/23 13:02 Respiratory Rate 16 03/26/23 13:02 Blood Pressure 129/77 03/26/23 13:02 Pulse Oximetry 97 03/26/23 13:02 Temperature 36.7 C 03/26/23 13:02 Temperature Source Oral 03/26/23 13:02 Pulse 74 03/26/23 13:02 Respiratory Rate 16 03/26/23 13:02 Respiratory Effort Normal 03/26/23 13:16 Blood Pressure 129/77 03/26/23 13:02 Blood Pressure Position Supine 03/26/23 13:02 Pulse Oximetry 97 03/26/23 13:02 Oxygen Delivery Method Room Air 03/26/23 13:02 Oxygen Flow Rate 0 03/26/23 13:02 Pain Level 8 03/26/23 13:02
[2023-03-26] MEDS: Acetaminophen 325 MG TAB 650 MG PO (13:48)
--- NOTE | 2023-03-26 14:04 | DI.RAD_ITS ---
Exam(s) XR HAND LT COMPLETE EXAM: XR HAND LT COMPLETE CLINICAL HISTORY: punched table 1 wk ago, ttp 4th MC. TECHNIQUE: 2D digital imaging was performed of the left hand. Three views were obtained. AP, later al and oblique views were obtained. COMPARISON: No exams were available for comparison FINDINGS: BONES: There is a comminuted fracture involving the distal 5th metacarpal bone. There is volar angul ation. There may be involvement at the medial aspect of the MCP joint. No bony destructive lesion i s seen. JOINTS: No dislocation present. SOFT TISSUE: Soft tissue swelling around the medial hand. IMPRESSION: Comminuted angulated fracture of the distal 5th metacarpal bone. DATA REPOSITORY: RADIATION DOSE DELIVERED:
== END 2023-03-26 17:11 | disposition home or self-care (01) ==
PROVIDERS: Emergency Provider Student in an Organized Health Care Education/Training Program; PCP Internal Medicine
DX: S62.307A Unspecified fracture of fifth metacarpal bone, left hand, initial encounter for closed fracture (principal); W22.8XXA Striking against or struck by other objects, initial encounter
CPT/HCPCS: 29125; 99283; 73130

== ENCOUNTER 2024-02-29 08:12 | Outpatient (REF) | payer MEDICAID, SELFPAY ==
--- OUTSIDE RECORDS SUMMARY | 2024-02-29 08:15 | XMS_ITS ---
Author Organization Unknown Address [address] [place] [address] [phone] Phone Care Team Providers Care Warehouse Driver Name Role Phone JUAN REGALADO Registered Nurse Unavailable BRENNAN Tolentino Attending Unavailable ANDRE Foote Primary Unavailable UNLISTED PROVIDER - REQUESTED Xhandoff Un available Results URINALYSIS WITH REFLEX CULT IF POSITIVE* - Collect Date/Time: 10/27/2021 04:00 [facility] ID: [id number] [address], [place], [address] LOINC: 91315-7 Test Value Unit Reference Range Code Code System Flag COLLECTION MODE: CLEAN CATCH Color MARAH yellow 5778-6 LOINC Appearance CLEAR clear 5767-9 LOINC Glucose urine DNR negative mg/dl 10673-5 LOINC Bilirubin DNR negative 5770-3 LOINC Ketones DNR negative mg/dl 2514-8 LOINC Spec gravity DNR 1.003 - 1.030 5811-5 LOINC pH urine DNR 5.0 - 7.0 2756-5 LOINC Protein DNR negative mg/dl 34686-3 LOINC Urobilinogen DNR <or= 1 EU/dl 77220-1 LOINC Nitrite. DNR negative 5802-4 LOINC Blood DNR negative 5794-3 LOINC Leukocytes. DNR negative MICROSCOPIC INDICATED WBCs. 0-5 0-5 / hpf 08246-8 LOINC RBCs 0-5 0-5 / hpf 82741-5 LOINC Epith cells 0-5 0-5 / hpf 40483-0 LOINC Cell types squam+trans Crystals none none Bacteria minimal none Mucus none none 8247-9 LOINC Casts none none /lpf 03751-8 LOINC Other 00616-1 LOINC CULT URINE CULTURE* - Collec t Date/Time: 10/27/2021 04:00 [facility] ID: [id number] [address] [place] [address], [id number] LOINC: 630-4 Test Value Unit Reference Range Code Code System Flag COLLECTION MODE: CLEAN CATCH ALCOHOL (ETHANOL)* - Collect Date/Time: 10/27/2021 03:50 [facility] ID: [id number] [address] [place] [address], [address] LOINC: 64022-3 Test Value Unit Reference Range Code Code System Flag ALCOHOL (ETHANOL) < 3 mg/dL 76394-5 LOINC MAGNESIUM SERUM* - Collect D ate/Time: 10/27/2021 03:50 [facility] ID: [id number] [address] [place] [address], [address] LOINC: 37154-8 Test Value Unit Reference Range Code Code System Flag MAGNESIUM 2.0 mg/dL L=1.8 H=2.4 94347-7 LOINC TROPONIN HIGH SENSITIVITY* - Collect Date/Time: 10/27/2021 03:50 [facility] ID: [id number] [address] [place] [address], [address] LOINC: 11321-0 Test Value Unit Reference Range Code Code System Flag TROPONIN HS 8.1 pg/mL L=0.0 H=60.4 Specimen seq. Random LIPASE* - Collect Date/Time: 10/27/2021 03:50 [facility] ID: [id number] [address] [place] [address], [id number] LOINC: 3040-3 Test Value Unit Reference Range Code Code System Flag LIPASE > 27220 U/L L=73 H=393 HH COMPREHENSIVE METABOLIC PANE L (CMP) - Collect Date/Time: 10/27/2021 03:50 [facility] ID: [id number] [address], [place], [address] LOINC: 40196-7 Test Value Unit Reference Range Code Code System Flag GLUCOSE 213 mg/dL L=70 H=116 2345-7 LOINC H BUN 14 mg/dL L=6 H=25 3094-0 LOINC CREATININE 1.05 mg/dL L=0.67 H=1.17 2160-0 LOINC SODIUM SERUM 138 mmol/L L=136 H=145 2951-2 LOINC POTASSIUM SERUM 3.0 mmol/L L=3.4 H=5.2 2823-3 LOINC L CHLORIDE SERUM 98 mmol/L L=96 H=110 2075-0 LOINC CARBON DIOXIDE (CO2) 27 mmol/L L=22 H=34 2028-9 LOINC ANION GAP 13.1 mmol/L 39161-2 LOINC CALCIUM SERUM 9.7 mg/dL L=8.2 H=10.2 30839-9 LOINC BILIRUBIN TOTAL 6.4 mg/dL L=0.0 H=1.3 1975-2 LOINC H ALK. PHOS. 241 U/L L=46 H=116 6768-6 LOINC H SGOT (AST) 82 U/L L=15 H=37 1920-8 LOINC H SGPT (ALT) 114 U/L L=12 H=78 1742-6 LOINC H TOTAL PROTEIN 8.5 gm/dL L=6.0 H=8.0 2885-2 LOINC H ALBUMIN 3.1 gm/dL L=3.4 H=5.0 1751-7 LOINC L AGE 51 years eGFR (non-Afr.Amer.) 74 mL/min 60898-7 LOINC eGFR (Afr-Armenian) 89 mL/min 87665-5 [facility] TR[facility] SERUM - Colle t Date/Time: 10/27/2021 03:50 [facility] ID: [id number] [address], [place], [address] LOINC: 2571-8 Test Value Unit Reference Range Code Code System Flag TRIGLYCERIDES 74 mg/dL L=63 H=313 2571-8 LOINC CBC W/ DIFFERENTIAL* - Colle ct Date/Time: 10/27/2021 03:50 [facility] ID: [id number] [address] [place] [address], [address] LOINC: 42335-1 Test Value Unit Reference Range Code Code System Flag WBC 12.62 th/cmm L=5.00 H=10.00 6690-2 LOINC H NEUT % 87.0 % L=40.0 H=80.0 H LYMPH % 8.6 % L=10.0 H=50.0 L MONO % 3.5 % L=2.0 H=12.0 61230-2 LOINC EOS % 0.1 % L=0.0 H=8.0 BASO % 0.2 % L=0.0 H=3.0 IG % 0.6 % L=0.0 H=1.1 2514-8 LOINC NRBC % 0.0 % L=0.0 H=0.0 39298-9 LOINC NEUT abs count 11.0 th/cmm L=1.6 H=8.4 751-8 LOINC H LYMPH abs count 1.1 th/cmm L=1.5 H=4.0 731-0 LOINC L MONO abs count 0.4 th/cmm L=0.2 H=1.0 742-7 LOINC EOS abs count 0.0 th/cmm L=0.0 H=0.5 711-2 LOINC BASO abs count 0.0 th/cmm L=0.0 H=0.2 704-7 LOINC IG abs count 0.1 th/cmm L=0.0 H=0.1 62389-1 LOINC NRBC abs count 0.0 mil/cmm L=0.0 H=0.0 78334-1 LOINC RBC 5.04 mil/cmm L=4.30 H=6.20 789-8 LOINC HEMOGLOBIN 13.7 gm/dL L=13.0 H=17.0 718-7 LOINC HEMATOCRIT 41 % L=45 H=52 4544-3 LOINC L MCV 81 fL L=82 H=92 787-2 LOINC L MCH 27.2 pg L=27.0 H=31.0 785-6 LOINC MCHC 33.7 % L=32.0 H=36.0 786-4 LOINC RDW-SD 41.4 fL L=39.0 H=49.0 788-0 LOINC PLATELET COUNT 361 th/cmm L=150 H=450 777-3 LOINC ACETAMINOPHEN* - Collect Bull e/Time: 10/27/2021 03:50 [facility] ID: [id number] [address], [place], [address] LOINC: 3298-7 Test Value Unit Reference Range Code Code System Flag ACETAMINOPHEN < 2.0 ug/mL L=10.0 H=20.0 3298-[address] ABD + PELV W CONTRAST - C ompleted: 10/27/2021 05:08 LOINC: Radiation optimization: All CT scans at this facility use at least one of these dose optimization techniques: automated exposure control; mA and/or kV adjustment per patient size (includes targeted exams where dose is matched to clinical indication); or iterative reconstruction. CT OF THE ABDOMEN AND PELVIS W/IV CONTRAST:Compared to prior CT scan of 09/20/21. Upper most images reveal no infiltrates nor pleural effusions in the visualized lung bases. There are multiple subacute partially healing left sided rib fractures involving the 10th, 9th, 8th and 7th ribs. Left ribs above this level are not included in the field of view. Multilevel fusion hardware in the lower lumbar spine noted. No new focal hepatic findings. The previously described small cyst in the right hepatic lobe is unchanged. Liver again appears somewhat cirrhotic. No solid hepatic mass identified. There is mild prominence of intrahepatic ducts as well as prominence of the CBD diameter which measures up to 11 mm. The gallbladder is somewhat distended but not obviously edematous and there is no pericholecystic fluid. There is both sludge and tiny calculi in the gallbladder lumen. Similar to previous. However, on the present study, there is peripancreatic streaking consistent with acute pancreatitis. Pancreatic duct is not dilated. There is no distinct pancreatic mass. Spleen size is upper normal. The splenic and portal veins are patent. No significant adrenal masses nor significant focal findings in the right kidney. There is a benign cyst in the superior pole of the left kidney again noted measuring 1.5 by 1.5 cm as well as an unchanged exophytic cyst seen off the medial cortex of the left kidney with similar measurements. No solid renal masses. No calculi. No hydronephrosis nor hydroureter. No obvious abnormality in the urinary bladder. Abdominal aorta is not enlarged. There is no periaortic adenopathy. There is an anterior abdominal wall midline umbilical hernia which contains fat. No bowel loops therein. No bowel obstruction. In the pelvis there is no evidence of appendicitis nor diverticulitis. No intrapelvic nor inguinal adenopathy. Prostate size is normal. Seminal vesicles unremarkable. No free fluid. Osseous: Multiple left sided subacute rib fractures as described above, previously documented. Also unilateral right fusion bar at 4 levels ending S1 and right sided intrapedicular screws at these 4 levels which appear to be in satisfactory position. There are also multiple screws across both sacroiliac joints. No significant osseous lesions. IMPRESSION: 1. There is evidence of acute pancreatitis. 2. The gallbladder is distended and contains tiny calculi as well as sludge and the CBD is dilated to 11 mm as well as mild dilatation of intrahepatic ducts. I suspect that there is probably a tiny calculi or calculus within the lower CBD causing the above findings and also responsible for the pancreatitis. There is no distinct pancreatic head mass and there is no dilatation of the pancreatic duct. 3. Stable solitary small cyst in the inferior right hepatic lobe. Cirrhotic appearing liver, mildly enlarged. 4. Two benign cysts in the left kidney. No other significant renal findings. No hydronephrosis. The patient was apparently transferred to [facility]. Dictated by: HEIDI HOLMAN MD Transcribed by: NATALIIA 10/27/21/15:44 D Wednesday, October 27, 2021 1:53:28 PM [id number] Electronically Reviewed and Signed By: ABBY HOLMAN MD 10/29/21 19:47 Copy for: ANDRE Foote via fax Copy for: 185 HEALTH INFORMATION MGMT DISCHARGED Social History Type Status Start Date End Date Code Code Syst em Smoking History Never smoker (Never Smoked) 240722522 SNOMED CT Sex Male Vital Signs Vital Sign Value Unit Oketo Value Oketo Unit Date/Time Recent/Initial? Code Code System Body Mass Index 37.12 kg/m2 10/27/2021 03:54 Initial 68463 -5 INC Systolic Blood Pressure 102 mm[Hg] 10/27/2021 07:21 Most Recent 8480- 6 LOINC Diastolic Blood Pressure 72 mm[Hg] 10/27/2021 07:21 Most Recent 8462- 4 [facility] Systolic Blood Pressure 119 mm[Hg] 10/27/2021 03:54 Initial 8480- 6 LOINC Diastolic Blood Pressure 79 mm[Hg] 10/27/2021 03:54 Initial 8462- 4 INC Body Surface Area 2.20 m2 10/27/2021 03:54 Initial 3140- 1 LOINC Height 167.640 0 cm 66.00 in 10/27/2021 03:54 Initial 8302- 2 INC O2 Saturation 96 % 2021 07:21 Most Recent 52885 -5 [facility] O2 Saturation 97 % 2021 03:54 Initial 18249 -5 INC Pulse 72.0 /min 10/27/2021 07:21 Most Recent 8867- 4 INC Pulse 84.0 /min 10/27/2021 03:54 Initial 8867- 4 LOINC Respiration 16 /min 10/28/19 22 07:21 Most Recent 9279- 1 INC Respiration 16 /min 10/28/19 22 03:54 Initial 9279- 1 [facility] Temperature 36.7 Leila 98.1 F 10/28/19 22 03:54 Initial 8310- 5 [facility] Weight 104.33 kg 230.00 lbs 10/27/2021 03:54 Initial 31700 -7 [facility] Medications Medication Start Date End Date Route Frequency Dose Code Code System Medication Instructions Home Meds oxyCODONE HCl 5MG Oral Capsule 09/20/2021 08/05/2022 ORAL NEEDED FOUR TIMES A DAY 1 CAPSULE 8272554 RxNorm TAKE 1 CAPSULE ORAL NEEDED FOUR TIMES A DAY Methocarbamol 500MG Oral Tablet 09/20/2021 10/27/2021 ORAL THREE TIMES A DAY 1 TABLET 704628 RxNorm TAKE 1 TABLET ORAL THREE TIMES A DAY Assessment You had the following problems:HTNNEUROPATHYDEPRESSIONDIABETESPANCREATITIS Hospital Discharge Instructions Should you have any questions prior to discharge, please contact a member of your healthcare team. If you have left the hospital and have any questions, please contact your primary care physician. Reason For Referral No Data Found Problems Problem Start Date Resolved Date Status Code Code System HTN active 83101895 SNOMED-CT NEUROPATHY active 457177799 SNOMED-CT DEPRESSION active 87623451 SNOMED-CT DIABETES active 18978098 SNOMED-CT PANCREATITIS active 30100691 SNOMED- CT ABDOMINAL PAIN 10/06/2021 10/27/2021 resolved 06858087 SNO MED-CT JAUNDICE 10/27/2021 resolved 97900040 SNOMED-CT Allergies and Adverse Reactions Allergy Substance Reaction Severity Start Date Concern Status Co de Code System No Known Drug Allergies Moderate Active 270699478 SNOMED-CT Plan of Treatment X-RAY 05/19/2023 MRI L SPINE W/O CONTRAST 02/23/2023 US ABDOMEN LIMITED 1 ORGAN 06/09/2022 PFT 04/15/2022 US ABDOMEN LIMITED 1 ORGAN 01/20/2022 PFT COMPLETE W BROCHODILATER 12/30/2021 BONE DENSITY DEXA SPINE & HIP 2 BONE DENSITY DEXA SPINE & HIP 2 EXPOSURE 06/06/2021 Encounters Encounter Diagnosis Start Date Code Code Sys tem Biliary acute pancreatitis without necrosis or infecti on 10/27/2021 SNOMED-CT Personal Care Team Section Performer Name Performer Role Active Date Inactive Da javier
--- OUTSIDE RECORDS SUMMARY | 2024-02-29 08:15 | XMS_ITS ---
Author Organization Unknown Address [address] [place] [address] [phone] Phone Care Team Providers Care Pearl Fisherman Name Role Phone NIKKI ENRIQUEZ Registered Nurse Unavailable LUIZ GALVEZ Registered Nurse Unavailable ADIEL Akins Attending Unavailable VARUN Hoffmann [facility] Unavailable ANDRE Foote Primary Unavailable UNLISTED PROVIDER - REQUESTED Xhandoff Un available Results [facility] THIENBRIJESH NICKIDALMIS* - Ellen ect Date/Time: 09/20/2021 15:00 [facility] ID: [id number] [address] [place] [address], [phone] LOINC: 77674-6 Test Value Unit Reference Range Code Code System Flag Tier- INPATIENT/ED 51137-4 LOINC SARS COV2 RNA: NEGATIVE REFERENCE RAN GE: NEGAT 06222-0 LOINC PT PROTHROMBIN TIME* - Colle ct Date/Time: 09/20/2021 14:00 [facility] ID: [id number] [address] [place] [address], 5661 LOINC: 5902-2 Test Value Unit Reference Range Code Code System Flag PROTIME 11.6 seconds L=9.3 H=11.4 5902-2 LOINC H INR 1.17 L=2.00 H=3.00 73181-1 LOINC L PTT PARTIAL THROMBOPLASTIN T EVANGELINA* - Collect Date/Time: 09/20/2021 14:00 [facility] ID: [id number] [address] [place] [address], [phone] LOINC: 53682-0 Test Value Unit Reference Range Code Code System Flag PTT 24 seconds L=24 H=32 17493-7 LOINC L URINALYSIS WITH REFLEX CULT IF POSITIVE* - Collect Date/Time: 09/20/2021 12:25 [facility] ID: [id number] [address] [place] [address], 5661 LOINC: 08711-2 Test Value Unit Reference Range Code Code System Flag COLLECTION MODE: CLEAN CATCH Color YELLOW yellow 5778-6 LOINC Appearance CLEAR clear 5767-9 LOINC Glucose urine >=1000 negative mg/dl 65868-9 LOINC A Bilirubin NEGATIVE negative 5770-3 LOINC Ketones NEGATIVE negative mg/dl 2514-8 LOINC Spec gravity 1.015 1.003 - 1.030 5811-5 LOINC pH urine 8.0 5.0 - 7.0 2756-5 LOINC A Protein NEGATIVE negative mg/dl 73079-8 LOINC Urobilinogen 0.2 <or= 1 EU/dl 46013-2 LOINC Nitrite. NEGATIVE negative 5802-4 LOINC Blood NEGATIVE negative 5794-3 LOINC Leukocytes. NEGATIVE negative MICROSCOPIC NOT INDICAT LIPASE* - Collect Date/Time: 09/20/2021 11:42 [facility] ID: [id number] [address] [place] [address], [phone] LOINC: 3040-3 Test Value Unit Reference Range Code Code System Flag LIPASE 179 U/L L=73 H=393 COMPREHENSIVE METABOLIC PANE L (CMP) - Collect Date/Time: 09/20/2021 11:42 [facility] ID: [id number] [address] [place] [address], 5661 LOINC: 74273-9 Test Value Unit Reference Range Code Code System Flag GLUCOSE 113 mg/dL L=70 H=116 2345-7 LOINC BUN 16 mg/dL L=6 H=25 3094-0 LOINC CREATININE 0.76 mg/dL L=0.67 H=1.17 2160-0 LOINC SODIUM SERUM 144 mmol/L L=136 H=145 2951-2 LOINC POTASSIUM SERUM 3.4 mmol/L L=3.4 H=5.2 2823-3 LOINC CHLORIDE SERUM 106 mmol/L L=96 H=110 2075-0 LOINC CARBON DIOXIDE (CO2) 28 mmol/L L=22 H=34 2028-9 LOINC ANION GAP 9.8 mmol/L 42350-2 LOINC CALCIUM SERUM 8.9 mg/dL L=8.2 H=10.2 52905-9 LOINC BILIRUBIN TOTAL 0.5 mg/dL L=0.0 H=1.3 1975-2 LOINC ALK. PHOS. 73 U/L L=46 H=116 6768-6 LOINC SGOT (AST) 19 U/L L=15 H=37 1920-8 LOINC SGPT (ALT) 19 U/L L=12 H=78 1742-6 LOINC TOTAL PROTEIN 8.0 gm/dL L=6.0 H=8.0 2885-2 LOINC ALBUMIN 3.8 gm/dL L=3.4 H=5.0 1751-7 LOINC AGE 51 years eGFR (non-Afr.Amer.) 107 mL/min 28238-9 LOINC eGFR (Afr-[place]) > 120 mL/min 78761-0 LOINC CBC W/ DIFFERENTIAL* - Colle ct Date/Time: 09/20/2021 11:42 [facility] ID: [id number] [address] [place], [place], [address] LOINC: 36348-6 Test Value Unit Reference Range Code Code System Flag WBC 10.01 th/cmm L=5.00 H=10.00 6690-2 LOINC H NEUT % 79.4 % L=40.0 H=80.0 LYMPH % 13.9 % L=10.0 H=50.0 MONO % 4.8 % L=2.0 H=12.0 87329-3 LOINC EOS % 0.9 % L=0.0 H=8.0 BASO % 0.5 % L=0.0 H=3.0 IG % 0.5 % L=0.0 H=1.1 2514-8 LOINC NRBC % 0.0 % L=0.0 H=0.0 30611-6 LOINC NEUT abs count 8.0 th/cmm L=1.6 H=8.4 751-8 LOINC LYMPH abs count 1.4 th/cmm L=1.5 H=4.0 731-0 LOINC L MONO abs count 0.5 th/cmm L=0.2 H=1.0 742-7 LOINC EOS abs count 0.1 th/cmm L=0.0 H=0.5 711-2 LOINC BASO abs count 0.1 th/cmm L=0.0 H=0.2 704-7 LOINC IG abs count 0.1 th/cmm L=0.0 H=0.1 03158-0 LOINC NRBC abs count 0.0 mil/cmm L=0.0 H=0.0 80360-8 LOINC RBC 5.24 mil/cmm L=4.30 H=6.20 789-8 LOINC HEMOGLOBIN 14.3 gm/dL L=13.0 H=17.0 718-7 LOINC HEMATOCRIT 44 % L=45 H=52 4544-3 LOINC L MCV 84 fL L=82 H=92 787-2 LOINC MCH 27.3 pg L=27.0 H=31.0 785-6 LOINC MCHC 32.5 % L=32.0 H=36.0 786-4 LOINC RDW-SD 42.5 fL L=39.0 H=49.0 788-0 LOINC PLATELET COUNT 298 th/cmm L=150 H=450 777-[address] ABD + PELV W CONTRAST - C ompleted: 09/20/2021 17:45 LOINC: Radiation optimization: All CT scans at this facility use at least one of these dose optimization techniques: automated exposure control; mA and/or kV adjustment per patient size (includes targeted exams where dose is matched to clinical indication); or iterative reconstruction. ABDOMINAL AND PELVIC CT: CT examination of the abdomen and pelvis was performed with a bolus infusion of 100 cc of Omnipaque 350. Note is made of coronary artery calcifications. There are fractures of left ribs 5 through 8 laterally. There is no evident associated pneumothorax or hemothorax in the visualized portions of the inferior chest. The liver has a mildly nodular contour consistent with cirrhosis. There is a presumed small right lobe hepatic cyst. The spleen is unremarkable in appearance. There is probable gallbladder sludge. No biliary dilatation. Unremarkable appearance of the pancreas. Adrenals appear normal bilaterally. The kidneys appear intact except for an apparent small left upper pole renal cyst. Abdominal aorta is of normal diameter and major visceral vessels appear intact. No evidence of vascular injury. No significant abdominal wall hernia. No significant abdominal or pelvic adenopathy. Appendix is normal. No evidence of bowel obstruction, bowel injury, or diverticulitis. There are bilateral fixation screws of the SI joints and there are screws in place in the posterior elements of the vertebrae L3 through S1 with a Sargent igor in place. There is no evidence of spinal fracture. CONCLUSION: 1. Multiple rib fractures as described above on the left. 2. No additional evidence of acute trauma. 3. Hepatic cirrhosis. Dictated by: DELONTE BRANDT RADIOLOGIST Transcribed by: NATALIIA 09/20/21:39 D Monday, September 20, 2021 1:57:10 PM [id number] Electronically Reviewed and Signed By: DELONTE BRANDT RADIOLOGIST 09/20/21 15:53 Copy for: [address] [facility] XR CHEST 2V PA AND LATERAL - Completed: 09/20/2021 17:45 LOINC: PA AND LATERA CHEST:The hear t is not enlarged. The lungs appear clear and well expanded. Fractures of left ribs 5 through [address], the findings are quite subtle by plain film criteria. No gross additional rib fracture seen. No pleural effusion. CONCLUSION:Subtle left rib fractures, no evidence of acute intrathoracic process. Dictated by: FRANCISCO BRANDT RADIOLOGIST Transcribed by: NATALIIA 09/20/2115:37 D Monday, September 20, 2021 1:52:40 PM [id number] Electronically Reviewed and Signed By: DELONTE BRANDT RADIOLOGIST 09/20/21 15:53 Copy for: [address] 3[address] INFORMATION [facility] Social History Type Status Start Date End Date Code Code Syst em Smoking History Never smoker (Never Smoked) 998898540 SNOMED CT Sex Male Vital Signs Vital Sign Value Unit [place] Value [place] Unit Date/Time Recent/Initial? Code Code System Body Mass Index 37.12 kg/m2 09/20/2021 10:47 Initial 12017 -5 [facility] Systolic Blood Pressure 115 mm[Hg] 09/20/2021 20:20 Most Recent 8480- 6 [facility] Diastolic Blood Pressure 85 mm[Hg] 09/20/2021 20:20 Most Recent 8462- 4 [facility] Systolic Blood Pressure 120 mm[Hg] 09/20/2021 10:47 Initial 8480- 6 [facility] Diastolic Blood Pressure 82 mm[Hg] 09/20/2021 10:47 Initial 8462- 4 [facility] Body Surface Area 2.20 m2 09/20/2021 10:47 Initial 3140- 1 [facility] Height 167.640 0 cm 66.00 in 09/20/2021 10:47 Initial 8302- 2 [facility] O2 Saturation 97 % 2021 20:20 Most Recent 20244 -5 [facility] O2 Saturation 97 % 2021 10:47 Initial 31195 -5 [facility] Inhaled Oxygen Flow Rate 2.00 L/min 09/20/2021 11:50 Initial 3151- 8 [facility] Pulse 71.0 /min 09/20/2021 20:20 Most Recent 8867- 4 [facility] Pulse 56.0 /min 09/20/2021 10:47 Initial 8867- 4 [facility] Respiration 12 /min 09/20/19 11:50 Most Recent 9279- 1 [facility] Respiration 14 /min 09/20/19 10:47 Initial 9279- 1 [facility] Temperature 35.6 Leila 96.1 F 09/20/19 10:47 Initial 8310- 5 [facility] Weight 104.33 kg 230.00 lbs 09/20/2021 10:47 Initial 11591 -7 [facility] Medications Medication Start Date End Date Route Frequency Dose Code Code System Medication Instructions Home Meds oxyCODONE HCl 5MG Oral Capsule 09/20/2021 08/05/2022 ORAL NEEDED FOUR TIMES A DAY 1 CAPSULE 0359224 RxNorm TAKE 1 CAPSULE ORAL NEEDED FOUR TIMES A DAY Methocarbamol 500MG Oral Tablet 09/20/2021 10/27/2021 ORAL THREE TIMES A DAY 1 TABLET 971259 RxNorm TAKE 1 TABLET ORAL THREE TIMES [...] Date Status Code Code System HTN active 28536555 SNOMED-CT NEUROPATHY active 563236232 SNOMED-CT DEPRESSION active 36547329 SNOMED-CT DIABETES active 38213802 SNOMED-CT PANCREATITIS active 81720922 SNOMED- CT ABDOMINAL PAIN 10/06/2021 10/27/2021 resolved 53342732 SNO MED-CT JAUNDICE 10/27/2021 resolved 37651109 SNOMED-CT Allergies and Adverse Reactions Allergy Substance Reaction Severity Start Date Concern Status Co de Code System No Known Drug Allergies Moderate Active 234983174 SNOMED-CT Plan of Treatment X-RAY 05/19/2023 MRI L SPINE W/O CONTRAST 02/23/2023 US ABDOMEN LIMITED 1 ORGAN 06/09/2022 PFT 04/15/2022 US ABDOMEN LIMITED 1 ORGAN 01/20/2022 PFT COMPLETE W BROCHODILATER 12/30/2021 BONE DENSITY DEXA SPINE & HIP 2 BONE DENSITY DEXA SPINE & HIP 2 EXPOSURE 06/06/2021 Encounters Encounter Diagnosis Start Date Code Code Sys tem Multiple fractures of ribs, left side, initial encounter for closed fracture 09/20/2021 SNOMED-CT Personal Care Team Section Performer Name Performer Role Active Date Inactive Da javier
--- OUTSIDE RECORDS SUMMARY | 2024-02-29 08:15 | XMS_ITS ---
Author Organization Unknown Address [address] [place] [address] [phone] Phone Care Team Providers Care Masonry Contractor Name Role Phone ANDRE Foote Attending Unavailable Social History Type Status Start Date End Date Code Code Syst em Smoking History Never smoker (Never Smoked) 544887033 SNOMED CT Sex Male Medications Medication Start Date End Date Route Frequency Dose Code Code System Medication Instructions Home Meds oxyCODONE HCl 5MG Oral Capsule 09/20/2021 08/05/2022 ORAL NEEDED FOUR TIMES A DAY 1 CAPSULE 3287452 RxNorm TAKE 1 CAPSULE ORAL NEEDED FOUR TIMES A DAY Assessment You had the following problems:HTNNEUROPATHYDEPRESSIONDIABETESPANCREATITIS Hospital Discharge Instructions Should you have any questions prior to discharge, please contact a member of your healthcare team. If you have left the hospital and have any questions, please contact your primary care physician. Reason For Referral No Data Found Problems Problem Start Date Resolved Date Status Code Code System HTN active 87986931 SNOMED-CT NEUROPATHY active 090372871 SNOMED-CT DEPRESSION active 10572411 SNOMED-CT DIABETES active 35071587 SNOMED-CT PANCREATITIS active 21077371 SNOMED- CT ABDOMINAL PAIN 10/06/2021 10/27/2021 resolved 55920701 SNO MED-CT JAUNDICE 10/27/2021 resolved 47499976 SNOMED-CT Allergies and Adverse Reactions Allergy Substance Reaction Severity Start Date Concern Status Co de Code System No Known Drug Allergies Moderate Active 462893324 SNOMED-CT Plan of Treatment X-RAY 05/19/2023 MRI L SPINE W/O CONTRAST 02/23/2023 US ABDOMEN LIMITED 1 ORGAN 06/09/2022 PFT 04/15/2022 US ABDOMEN LIMITED 1 ORGAN 01/20/2022 PFT COMPLETE W BROCHODILATER 12/30/2021 BONE DENSITY DEXA SPINE & HIP 2 BONE DENSITY DEXA SPINE & HIP 2 EXPOSURE 06/06/2021 Personal Care Team Section Performer Name Performer Role Active Date Inactive Da te
--- OUTSIDE RECORDS SUMMARY | 2024-02-29 08:16 | XMS_ITS ---
Author Organization Unknown Address [address] [place] [address] [phone] Phone Care Team Providers Care Hand Lens Polisher Name Role Phone SANDIP Hoffmann Attending Unavailable ANDRE Foote Primary Unavailable Results US ABD LIMITED ONE ORGAN - C ompleted: 06/09/2022 08:17 LOINC: [facility] [place], [place] [address] PACS PAPER CONSERVATOR REPORT Patient Name: ANTONY WEINER MRN: Sex: : Age: [id number] M [id number] Account: Accession: Admit: StayType: [id number] 06/09/2022 O/P Ordered: Order ID: Submitted: Ordering Provider: 06/09/2022 08:03 [id number] [facility] JACKY OROPEZA Completed: Technologist: Resulted: 06/09/2022 08:17 GVS 06/09/2022 08:32 Study Description: US ABD LIMITED ONE ORGAN Study Reason: CIRRHOSIS TECHNIQUE: Ultrasound abdomen performed using standard protocol. COMPARISON: Prior ultrasound November 2019. Also reviewed prior CT scan performed 10/27/2021. FINDINGS: There is no ascites evident. LIVER: The liver is again noted to be hyperechoic indicating steatosis. No discrete liver mass evident. GALLBLADDER/BILIARY: The gallbladder is surgically absent. The common hepatic duct isnot dilated, measuring 6mm at the level of jules hepatis. PANCREAS: There is presently no evidence to suggest acute pancreatitis nor peripancreatic fluid collection, as evident on the prior CT scan of October 2021. RIGHT KIDNEY:No evidence of solid mass, calculus, nor hydronephrosis. No cortical cysts evident. ABDOMINAL AORTA AND IVC: Visualized portions exhibit normal caliber. IMPRESSION: 1. Gallbladder surgically absent. The diameter is upper normal. 2. Hepatic steatosis. No hepatic mass and no ascites. 3. There is no ascites. Report Digitally Signed by Eran Obregon on 06/09/2022 08:32 AM EST 06/09/22.0834.GVS.to ANDRE NARVAEZ via fax Social History Type Status Start Date End Date Code Code Syst em Smoking History Never smoker (Never Smoked) 808144512 SNOMED CT Sex Male Medications Medication Start Date End Date Route Frequency Dose Code Code System Medication Instructions Home Meds oxyCODONE HCl 5MG Oral Capsule 09/20/2021 08/05/2022 ORAL NEEDED FOUR TIMES A DAY 1 CAPSULE 4146747 RxNorm TAKE 1 CAPSULE ORAL NEEDED FOUR [...] Date Status Code Code System HTN active 99641601 SNOMED-CT NEUROPATHY active 053765041 SNOMED-CT DEPRESSION active 35539167 SNOMED-CT DIABETES active 08797443 SNOMED-CT PANCREATITIS active 63938424 SNOMED- CT ABDOMINAL PAIN 10/06/2021 10/27/2021 resolved 22648875 SNO MED-CT JAUNDICE 10/27/2021 resolved 05382403 SNOMED-CT Allergies and Adverse Reactions Allergy Substance Reaction Severity Start Date Concern Status Co de Code System No Known Drug Allergies Moderate Active 142951326 SNOMED-CT Plan of Treatment X-RAY 05/19/2023 MRI L SPINE W/O CONTRAST 02/23/2023 US ABDOMEN LIMITED 1 ORGAN 06/09/2022 PFT 04/15/2022 US ABDOMEN LIMITED 1 ORGAN 01/20/2022 PFT COMPLETE W BROCHODILATER 12/30/2021 BONE DENSITY DEXA SPINE & HIP 2 BONE DENSITY DEXA SPINE & HIP 2 EXPOSURE 06/06/2021 Encounters Encounter Diagnosis Start Date Code Code Sys tem Unspecified cirrhosis of liver 06/09/2022 SNOMED-CT Personal Care Team Section Performer Name Performer Role Active Date Inactive Da te
--- OUTSIDE RECORDS SUMMARY | 2024-02-29 08:16 | XMS_ITS ---
Author Organization Unknown Address [address] [place] [address] [phone] Phone Care Team Providers Care Plastics Fabricator Or Welder Name Role Phone ANDRE Foote Attending Unavailable Results BD DXA BONE DENSITY AXIAL - Completed: 01/02/2022 14:44 LOINC: DEXA SCAN Bone mineral density measurements were performed of the left hip and left forearm. The spine could not be analyzed due to presence of spinal hardware. The bone mineral density measurements of the left hip correspond to a total T-score of 0.1 and a femoral neck T-score of negative 0.7, in the normal range. The left forearm bone mineral density measurements correspond to a T-score of negative 0.1, in the normal range. IMPRESSION: Normal bone mineral density of the left hip and left forearm. Dictated by: CEO NITHYA BERRY MD Transcribed by: [facility] [place] 01/02/22/16:03 D , January 02, 2022 1:26:21 PM [id number] Electronically Reviewed and Signed By: NITHYA BERRY MD 01/02/22 16:14 Copy for: ANDRE Foote via fax Copy for: [facility] HEALTH INFORMATION [facility] Social History Type Status Start Date End Date Code Code Syst em Smoking History Never smoker (Never Smoked) 589131406 SNOMED CT Sex Male Medications Medication Start Date End Date Route Frequency Dose Code Code System Medication Instructions Home Meds oxyCODONE HCl 5MG Oral Capsule 09/20/2021 08/05/2022 ORAL NEEDED FOUR TIMES A DAY 1 CAPSULE 6706374 RxNorm TAKE 1 CAPSULE ORAL NEEDED FOUR [...] Date Status Code Code System HTN active 21256431 SNOMED-CT NEUROPATHY active 312574854 SNOMED-CT DEPRESSION active 28060540 SNOMED-CT DIABETES active 41779326 SNOMED-CT PANCREATITIS active 52964995 SNOMED- CT ABDOMINAL PAIN 10/06/2021 10/27/2021 resolved 69862291 SNO MED-CT JAUNDICE 10/27/2021 resolved 64015384 SNOMED-CT Allergies and Adverse Reactions Allergy Substance Reaction Severity Start Date Concern Status Co de Code System No Known Drug Allergies Moderate Active 616504927 SNOMED-CT Plan of Treatment X-RAY 05/19/2023 MRI L SPINE W/O CONTRAST 02/23/2023 US ABDOMEN LIMITED 1 ORGAN 06/09/2022 PFT 04/15/2022 US ABDOMEN LIMITED 1 ORGAN 01/20/2022 PFT COMPLETE W BROCHODILATER 12/30/2021 BONE DENSITY DEXA SPINE & HIP 2 BONE DENSITY DEXA SPINE & HIP 2 EXPOSURE 06/06/2021 Encounters Encounter Diagnosis Start Date Code Code Sys tem Vitamin D deficiency, unspecified 01/02/2022 SNOMED-CT Personal Care Team Section Performer Name Performer Role Active Date Inactive Da javier
--- OUTSIDE RECORDS SUMMARY | 2024-02-29 08:16 | XMS_ITS ---
Author Organization Unknown Address [address] [place] [address] [phone] Phone Care Team Providers Care Shell Mold Bonder Name Role Phone JUAN C Tolentino Attending Unavailable ANDRE Foote Primary Unavailable Social History Type Status Start Date End Date Code Code Syst em Smoking History Never smoker (Never Smoked) 534448810 SNOMED CT Sex Male Medications Medication Start Date End Date Route Frequency Dose Code Code System Medication Instructions Home Meds oxyCODONE HCl 5MG Oral Capsule 09/20/2021 08/05/2022 ORAL NEEDED FOUR TIMES A DAY 1 CAPSULE 6296845 RxNorm TAKE 1 CAPSULE ORAL NEEDED FOUR [...] Date Status Code Code System HTN active 46518114 SNOMED-CT NEUROPATHY active 139108758 SNOMED-CT DEPRESSION active 47100567 SNOMED-CT DIABETES active 53640840 SNOMED-CT PANCREATITIS active 60395854 SNOMED- CT ABDOMINAL PAIN 10/06/2021 10/27/2021 resolved 28215370 SNO MED-CT JAUNDICE 10/27/2021 resolved 65823345 SNOMED-CT Allergies and Adverse Reactions Allergy Substance Reaction Severity Start Date Concern Status Co de Code System No Known Drug Allergies Moderate Active 930256415 SNOMED-CT Plan of Treatment X-RAY 05/19/2023 MRI L SPINE W/O CONTRAST 02/23/2023 US ABDOMEN LIMITED 1 ORGAN 06/09/2022 PFT 04/15/2022 US ABDOMEN LIMITED 1 ORGAN 01/20/2022 PFT COMPLETE W NILATER 12/30/2021 BONE DENSITY DEXA SPINE & HIP 2 BONE DENSITY DEXA SPINE & HIP 2 EXPOSURE 06/06/2021 Encounters Encounter Diagnosis Start Date Code Code Sys tem Other forms of dyspnea 04/15/2022 YESSI D-CT Personal Care Team Section Performer Name Performer Role Active Date Inactive Da te
--- OUTSIDE RECORDS SUMMARY | 2024-02-29 08:16 | XMS_ITS ---
Author Organization Unknown Address [address] [place] [address] [phone] Phone Care Team Providers Care Hot Water Heater Installer Name Role Phone DYLAN MATHIS Registered Nurse Unavailable KAMILAH DAIGLE Registered Nurse Unavailable DOROTEO PADILLA Registered Nurse UnavailNia Akins Attending Unavailable JOYCE [facility] Unavailable ANDRE Foote Primary Unavailable LISA [place] Xhandoff Unavailable UNLISTED PROVIDER - REQUESTED Xhandoff Un available Results URINALYSIS WITH REFLEX CULT IF POSITIVE* - Collect Date/Time: 08/06/2022 12:10 [facility] ID: [id number] [address] [place], [place], [address] LOINC: 01385-2 Test Value Unit Reference Range Code Code System Flag COLLECTION MODE: CLEAN CATCH 41157-3 LOINC Color YELLOW yellow 5778-6 LOINC Appearance CLEAR clear 5767-9 LOINC Glucose urine 250 negative mg/dl 36782-5 LOINC A Bilirubin NEGATIVE negative 5770-3 LOINC Ketones NEGATIVE negative mg/dl 2514-8 LOINC Spec gravity 1.020 1.003 - 1.030 5811-5 LOINC pH urine 7.0 5.0 - 7.0 2756-5 LOINC Protein NEGATIVE negative mg/dl 50514-1 LOINC Urobilinogen 0.2 <or= 1 EU/dl 52876-9 LOINC Nitrite. NEGATIVE negative 5802-4 LOINC Blood NEGATIVE negative 5794-3 LOINC Leukocytes. NEGATIVE negative MICROSCOPIC NOT INDICAT DRUG SCN 13 PANEL (MEDTO[facility])* - Collect Date/Time: 08/06/2022 12:10 [facility] ID: [id number] [address], [place], [id number] LOINC: 33455-4 Test Value Unit Reference Range Code Code System Flag CANNABINOIDS POSITIVE Cutoff = 50 ng/mL 27442-2 LOINC A PHENCYCLIDINE NEGATIVE Cutoff = 25 ng/mL 04735-1 LOINC COCAINE NEGATIVE Cutoff = 150 ng/mL 01497-4 LOINC METHAMPHETAMINES NEGATIVE Cutoff = 50 0 ng/mL 40730-1 LOINC OPIATES NEGATIVE Cutoff = 100 ng/mL 25628-2 LOINC AMPHETAMINES NEGATIVE Cutoff = 500 ng/mL 97219-1 LOINC BENZODIAZEPINES NEGATIVE Cutoff = 150 ng/mL 27087-8 LOINC TRICYCLIC ANTIDEP NEGATIVE Cutoff = 3 00 ng/mL 3533-7 LOINC METHADONE NEGATIVE Cutoff = 200 ng/mL 66411-5 LOINC BARBITURATES NEGATIVE Cutoff = 200 ng/mL 01767-3 LOINC OXYCODONE NEGATIVE Cutoff = 100 ng/mL 70197-3 LOINC PROPOXYPHENE NEGATIVE Cutoff = 300 ng/mL 19449-0 LOINC BUPRENORPHINE NEGATIVE Cutoff = 10 mg/mL 3414-0 [facility] - Co llect Date/Time: 08/06/2022 12:10 [facility] ID: [id number] [address], [place], [id number] LOINC: 67290-3 Test Value Unit Reference Range Code Code System Flag COVID NEGATIVE Normal: Negative 64834-3 LOINC Tier- INPATIENT/ED 43426-7 LOINC GLUCOSE FINGER/HEEL CAPILLAR Y - Collect Date/Time: 08/05/2022 17:32 [facility] ID: [id number] [address], [place], [id number] LOINC: 64851-1 Test Value Unit Reference Range Code Code System Flag GLUCOSE CAP 76 mg/dL L=70 H=116 Social History Type Status Start Date End Date Code Code Syst em Smoking History Never smoker (Never Smoked) 694406262 SNOMED CT Sex Male Vital Signs Vital Sign Value Unit Rolette Value Rolette Unit Date/Time Recent/Initial? Code Code System Body Mass Index 39.60 kg/m2 08/05/2022 14:06 Initial 88931 -5 LOINC Systolic Blood Pressure 116 mm[Hg] 08/05/2022 22:26 Most Recent 8480- 6 LOINC Diastolic Blood Pressure 70 mm[Hg] 08/05/2022 22:26 Most Recent 8462- 4 LOINC Systolic Blood Pressure 135 mm[Hg] 08/05/2022 14:06 Initial 8480- 6 LOINC Diastolic Blood Pressure 97 mm[Hg] 08/05/2022 14:06 Initial 8462- 4 LOINC Body Surface Area 2.23 m2 08/05/2022 14:06 Initial 3140- 1 LOINC Height 165.100 0 cm 65.00 in 08/05/2022 14:06 Initial 8302- 2 LOINC O2 Saturation 98 % 2022 22:26 Most Recent 27874 -5 LOINC O2 Saturation 98 % 2022 14:06 Initial 57656 -5 LOINC Pulse 57.0 /min 08/05/2022 22:26 Most Recent 8867- 4 LOINC Pulse 69.0 /min 08/05/2022 14:06 Initial 8867- 4 LOINC Respiration 16 /min 08/05/19 23 22:26 Most Recent 9279- 1 LOINC Respiration 18 /min 08/05/19 23 14:06 Initial 9279- 1 LOINC Temperature 36.8 Leila 98.2 F 08/05/19 23 14:06 Initial 8310- 5 LOINC Weight 107.95 kg 238.00 lbs 08/05/2022 14:06 Initial 96814 -7 [facility] Medications Medication Start Date End Date Route Frequency Dose Code Code System Medication Instructions Home Meds oxyCODONE HCl 5MG Oral Capsule 09/20/2021 08/05/2022 ORAL NEEDED FOUR TIMES A DAY 1 CAPSULE 9664059 RxNorm TAKE 1 CAPSULE ORAL NEEDED FOUR [...] Date Status Code Code System HTN active 41247691 SNOMED-CT NEUROPATHY active 324435726 SNOMED-CT DEPRESSION active 32734213 SNOMED-CT DIABETES active 56831549 SNOMED-CT PANCREATITIS active 92978159 SNOMED- CT ABDOMINAL PAIN 10/06/2021 10/27/2021 resolved 41813658 SNO MED-CT JAUNDICE 10/27/2021 resolved 43140192 SNOMED-CT Allergies and Adverse Reactions Allergy Substance Reaction Severity Start Date Concern Status Co de Code System No Known Drug Allergies Moderate Active 413506761 SNOMED-CT Plan of Treatment X-RAY 05/19/2023 MRI L SPINE W/O CONTRAST 02/23/2023 US ABDOMEN LIMITED 1 ORGAN 06/09/2022 PFT 04/15/2022 US ABDOMEN LIMITED 1 ORGAN 01/20/2022 PFT COMPLETE W BROCHODILATER 12/30/2021 BONE DENSITY DEXA SPINE & HIP 2 BONE DENSITY DEXA SPINE & HIP 2 EXPOSURE 06/06/2021 Encounters Encounter Diagnosis Start Date Code Code Sys tem Depression, unspecified 08/05/2022 SNOM ED-CT Personal Care Team Section Performer Name Performer Role Active Date Inactive Da te
--- OUTSIDE RECORDS SUMMARY | 2024-02-29 08:17 | XMS_ITS ---
Author Organization Unknown Address [address] [place] [address] [phone] Phone Care Team Providers Care Drainage Inspector Name Role Phone ADAL CURRY Ema Attending Unavailable ANDRE Foote Primary Unavailable Social History Type Status Start Date End Date Code Code Syst em Smoking History Never smoker (Never Smoked) 333598957 SNOMED CT Sex Male Assessment You had the following problems:HTNNEUROPATHYDEPRESSIONDIABETESPANCREATITIS Hospital Discharge Instructions Should you have any questions prior to discharge, please contact a member of your healthcare team. If you have left the hospital and have any questions, please contact your primary care physician. Reason For Referral No Data Found Problems Problem Start Date Resolved Date Status Code Code System HTN active 13298432 SNOMED-CT NEUROPATHY active 458876641 SNOMED-CT DEPRESSION active 02219276 SNOMED-CT DIABETES active 20285052 SNOMED-CT PANCREATITIS active 58188674 SNOMED- CT ABDOMINAL PAIN 10/06/2021 10/27/2021 resolved 38403807 SNO MED-CT JAUNDICE 10/27/2021 resolved 12501876 SNOMED-CT Allergies and Adverse Reactions Allergy Substance Reaction Severity Start Date Concern Status Co de Code System No Known Drug Allergies Moderate Active 278269875 SNOMED-CT Plan of Treatment X-RAY 05/19/2023 MRI L SPINE W/O CONTRAST 02/23/2023 US ABDOMEN LIMITED 1 ORGAN 06/09/2022 PFT 04/15/2022 US ABDOMEN LIMITED 1 ORGAN 01/20/2022 PFT COMPLETE W BROCHODILATER 12/30/2021 BONE DENSITY DEXA SPINE & HIP 2 BONE DENSITY DEXA SPINE & HIP 2 EXPOSURE 06/06/2021 Encounters Encounter Diagnosis Start Date Code Code Sys tem Fracture of metacarpal bone 05/05/2023 331005535 SNOMED-CT Personal Care Team Section Performer Name Performer Role Active Date Inactive Da te
--- OUTSIDE RECORDS SUMMARY | 2024-02-29 08:17 | XMS_ITS | Encounter Summary ---
Author Organization [facility] Address [address] [place] [address] Care Team Providers Care Radio Aerial Installer Name Role Phone DkmayteVilma Dary Primary Care Provider [phone] Encounter Details Date Type Department Care Team (Latest Contact Info) Description 05/13/2023 7:41 EDT - 05/13/2023 23:59 EDT Hospital Encounter [facility] Xray [address] [place], [place] [id number] Discharge Disposition: Home or Self Care Social History Tobacco Use Types Packs/Day Years Used Date Smoking Tobacco: Never Smokeless Tobacco: Former Comments:Daily x 28 YRS - Qu it 4 YRS ago. Alcohol Use Standard Drinks/Week Comments Not Currently 0 (1 standard drink = 0.6 oz pur e alcohol) No alcohol x1.5 yr Interpersonal Safety Answer Date Record ed Physically Hurt Never 02/26/2020 Verbally Threaten Not on file 02/26/2020 Sex and Gender Information Value Date Recorded Sex Assigned at Not on file Gender Identity Not on file Sexual Orientation Not on file documented as of this encounter Functional Status Functional Status Response Date of Assess ment Are you deaf or do you have serious difficulty h earing? No 10/27/2021 Are you blind or do you have serious difficulty seeing, even when wearing glasses? No 10/27/2021 Do you have serious difficul ty walking or climbing stairs? (5 years old or older) No 10/27/2021 Do you have difficulty dress ing or bathing? (5 years old or older) No 10/27/2021 Because of a physical, menta l, or emotional condition, do you have difficulty doing errands alone such as visiting a doctor's office or shopping? (15 years old or older) No 10/27/2021 Cognitive Status Response Date of Assessm ent Because of a physical, menta l, or emotional condition, do you have serious difficulty concentrating, remembering, or making decisions? (5 years old or older) No 10/27/2021 documented as of this encounter Medications at Time of Discharge Medication Sig Dispensed Refills Start Date End Date acamprosate (CAMPRAL) 333 mg tablet 1 Tablet 3 times daily. 11/05/2021 acetaminophen (TYLENOL) 500 mg tablet Take 1 Tablet by mouth every 6 hours as needed for Pain or Fever. 11/04/2021 acetylcysteine (NAC) 600 mg capsule Take 1,200 mg by mouth 2 times daily. ARIPiprazole (ABILIFY) 10 mg tablet Take 1 Tablet by mouth daily. busPIRone (BUSPAR) 10 mg tablet Take 10 mg by mouth 3 times daily. diclofenac sodium gel Apply topically. 05/10/2020 empagliflozin (JARDIANCE) 10 mg tablet Take 1 Tablet by mouth daily. gabapentin (NEURONTIN) 300 mg capsule Take 1 Capsule by mouth 4 times daily. lamoTRIgine (LAMICTAL) 100 mg tablet Take 1 Tablet by mouth 2 times daily. lithium (LITHOBID) 300 mg CR tablet Take 2 Tablets by mouth 3 times daily. magnesium oxide (MAG-OX) 400 mg (241.3 mg magnesium) tablet Take 400 mg by mouth daily. ONE TOUCH DELICA 33 gauge misc TEST TWICE DAILY 10/17/2021 ONETOUCH VERIO TEST STRIPS test strips TEST TWICE DAILY 10/17/2021 traZODone (DESYREL) 100 mg tablet TAKE 1 TO 2 TABLETS BY MOUTH AT BEDTIME NEEDED 11/07/2021 triamcinolone (KENALOG) 0.1 % cream APPLY SMALL AMOUNT TOPICALLY TO THE AFFECTED AREA TWICE DAILY NEEDED 09/09/2021 VITAMIN D3 50 mcg (2,000 unit) tablet Take 1 Tablet by mouth daily. 11/06/2021 documented as of this encounter Discharge Disposition Disposition Code Departure Means Destination Home or Self Care documented in this encounter Plan of Treatment Not on file documented as of this encounter Procedures Procedure Name Priority Date/Time Associated Diagnosis Comments PAIN CLINIC FL PROCEDURE Routine 05/13/2023 10:26 EDT documented in this encounter Results * PAIN CLINIC FL PROCEDURE (05/13/2023 10:26 EDT) Narrative 05/13/2023 10:26 EDT This is a non-reportable exam. Ross DUONG IMG OTHER IMAGING OR DERABLES documented in this encounter Visit Diagnoses Not on filedocumented in this encounter Care Teams Radio Aerial Installer Relationship Specialty Start Date End Date Vilma Givens [address] [place] [address] PCP - General Internal Medicine - Primary Care 05/13/23 documented as of this encounter
--- OUTSIDE RECORDS SUMMARY | 2024-02-29 08:17 | XMS_ITS | Referral Summary ---
Author Organization [facility] Address [address] [place] [address] Care Team Providers Care Checkman Name Role Phone Chon Vilma Foote Primary Care Provider [phone] Allergies No known active allergies Medications Medication Sig Dispensed Refills Start Date End Date Status magnesium oxide (MAG-OX) 400 mg (241.3 mg magnesium) tablet Take 400 mg by mouth daily. Active acetylcysteine (NAC) 600 mg capsule Take 1,200 mg by mouth 2 times daily. Active empagliflozin (JARDIANCE) 10 mg tablet Take 1 Tablet by mouth daily. Active busPIRone (BUSPAR) 10 mg tablet Take 10 mg by mouth 3 times daily. Active acetaminophen (TYLENOL) 500 mg tablet Take 1 Tablet by mouth every 6 hours as needed for Pain or Fever. 11/04/2021 Active acamprosate (CAMPRAL) 333 mg tablet 1 Tablet 3 times daily. 11/05/2021 Active ONETOUCH VERIO TEST STRIPS test strips TEST TWICE DAILY 10/17/2021 Active ONE TOUCH DELICA 33 gauge misc TEST TWICE DAILY 10/17/2021 Active triamcinolone (KENALOG) 0.1 % cream APPLY SMALL AMOUNT TOPICALLY TO THE AFFECTED AREA TWICE DAILY NEEDED 09/09/2021 Active diclofenac sodium gel Apply topically. 05/10/2020 Active VITAMIN D3 50 mcg (2,000 unit) tablet Take 1 Tablet by mouth daily. 11/06/2021 Active traZODone (DESYREL) 100 mg tablet TAKE 1 TO 2 TABLETS BY MOUTH AT BEDTIME NEEDED 11/07/2021 Active gabapentin (NEURONTIN) 300 mg capsule Take 1 Capsule by mouth 4 times daily. Active lamoTRIgine (LAMICTAL) 100 mg tablet Take 1 Tablet by mouth 2 times daily. Active lithium (LITHOBID) 300 mg CR tablet Take 2 Tablets by mouth 3 times daily. Active ARIPiprazole (ABILIFY) 10 mg tablet Take 1 Tablet by mouth daily. Active Active Problems Problem Noted Date Diagnosed Date Liver cirrhosis secondary to nonalcoholic steatohepatitis ([place]) ([facility]) 09/04/2015 Back pain 08/11/2014 Overview: S/p repeated lumbar surgeries with posterior spinal fusion and multiple revisions complicated by wound infection due to Staph epidermidis. Resolved Problems Problem Noted Date Diagnosed Date Resolved Date Calculus of gallbladder and bile duct without cholecystitis 10/31/2021 11/29/2021 Pancreatitis, gallstone 10/27/202110/25 Immunizations Name Administration Dates Next Due Influenza Vaccine Quad PF 0.5 ml IM (6 mos+) 05/2022() Social History Tobacco Use Types Packs/Day Years Used Date Smoking Tobacco: Never Smokeless Tobacco: Former Tobacco Cessation:Counseling Given: Not Answered Comments:Daily x 28 YRS - Quit 4 YRS ago. Alcohol Use Standard Drinks/Week Comments Not Currently 0 (1 standard drink = 0.6 oz pur e alcohol) No alcohol x1.5 yr Interpersonal Safety Answer Date Record ed Physically Hurt Never 02/26/2020 Verbally Threaten Not on file 02/26/2020 Sex and Gender Information Value Date Recorded Sex Assigned at Not on file Gender Identity Not on file Sexual Orientation Not on file Last Filed Vital Signs Vital Sign Reading Time Taken Comments Blood Pressure 134/78 05/13/2023 1024 EDT Pulse 53 05/13/2023 1024 EDT Temperature 36.1 ??C (97 ??F) 05/13/2023 0950 EDT Respiratory Rate 16 05/13/2023 0950 EDT Oxygen Saturation 99% 05/13/2023 0950 EDT Inhaled Oxygen Concentration - - Weight 98.9 kg (218 lb) 07/16/2022 1525 EST per patient Height 165.1 cm (5' 5) 11/04/2021 0019 EDT Body Mass Index 36.28 11/04/2021 0019 EDT Functional Status Functional Status Response Date of [...] (5 years old or older) No 10/27/2021 Plan of Treatment Not on file Medical Devices Implanted Type Area Rn Clinical Trials Device Identifier Shelf Expiration Date Model / Serial / Lot Ortho Implant Ortho Implant Description:Lumbar and Pelvi s Procedures Procedure Name Priority Date/Time Associated Diagnosis Comments HEPATITIS C ANTIBODY WITH REFLEX TO HCV RNA BY PCR Routine 06/29/2015 10:50 EST LFTs abnormal COLONOSCOPY PROCEDURE Routine 04/11/2015 Diarrhea from Last 3 Months or Most Recently Relevant to Health Maintenance Results * HEPATITIS C ANTIBODY WITH REFLEX TO HCV RNA BY PCR (06/29/2015 10:50 EST) Hepatitis C Ab Negative 06/29/2015 13:44 EST [facility] Comment:Reference Range: Neg ative Blood specimen (specimen) BLOOD SPECIMEN / Unknown 06/29/2015 10:50 EST 06/29/2015 11:24 EST Yaniv Herbert MD PhD CHEMISTRY & BLO OD GAS ORDERABLES [facility] [address] [place] [address] * COLONOSCOPY (04/11/2015) Colonoscopy [facility] Comment:no follow up recomme nded Colonoscopy, External [facility] Anatomical Region Laterality Modality Endoscopy 04/11/2015 Keyshawn Bui MD GI PROCEDURE ORDER ALBARO from Last 3 Months or Most Recently Relevant to Health Maintenance Advance Directives For more information, please contact: [phone] * Full Code (Latest Code Status on File) Date Activated Date Inactivated Comments 10/27/2021 12:50 11/04/2021 17:56 Question Answer Comments When the patient has NO PULSE: Full Code / CPR Who Made the Decision? Patient * Full Code Date Activated Date Inactivated Comments 10/27/2021 11:03 10/27/2021 12:50 Question Answer Comments When the patient has NO PULSE: Full Code / CPR Who Made the Decision? Default/Not Discussed Care Teams Checkman Relationship Specialty Start Date End Date Vilma Givens [address] [place] [address] PCP - General Internal Medicine - Primary Care 05/13/23
--- OUTSIDE RECORDS SUMMARY | 2024-02-29 08:17 | XMS_ITS | Encounter Summary ---
Author Organization [facility] Address [address] [place] [address] Care Team Providers Care Cigarette Vendor Name Role Phone Vilma Givens Primary Care Provider [phone] Reason for Visit * Reason Comments Back Pain Patient is here for lower back, butt and leg pain * Office Procedure (Routine) - Authorization Not Required Specialty Diagnoses / Procedures Referred By Hemant linn Referred To Contact Pain Medicine Diagnoses Back pain Procedures DE NJX DX/THER SBST INTRLMNR LMBR/SAC W/IMG GDN [facility] [address] [facility] [place] [address] [facility] [address] [place] [address] Referral ID Status Reason Start Date Expiration Date Visits Requested Visits Authorized [id number] Authorization Not Required 1 1 Encounter Details Date Type Department Care Team (Latest Contact Info) Description 05/13/2023 10:30 EDT Office Visit [facility] Interventional Pain [address] [facility] [place] [address] Ross Somers MBBS [address] [facility] [address] [place] [address] Lumbar radiculopathy, chronic (Primary Dx); Lumbar radicular pain Social History Tobacco Use Types Packs/Day Years [...] on file documented as of this encounter Last Filed Vital Signs Vital Sign Reading Time Taken Comments Blood Pressure 134/78 05/13/2023 1024 EDT Pulse 53 05/13/2023 1024 EDT Temperature 36.1 ??C (97 ??F) 05/13/2023 0950 EDT Respiratory Rate 16 05/13/2023 0950 EDT Oxygen Saturation 99% 05/13/2023 0950 EDT Inhaled Oxygen Concentration - - Weight - - Height - - Body Mass Index - - documented in this encounter Functional Status Functional Status Response [...] No 10/27/2021 documented as of this encounter Patient Instructions * Patient Instructions* Daily, INDU Lindsay - 05/13/2023 10:30 EDT [facility] [place] [address] Patient Instructions You have had your caudal Epidural Steroid Injection. The purpose of this procedure has been to place medication which may help relieve your pain. Steroid may be used to decrease the swelling and nerve irritation which may be causing your pain. The following information should help you over the next few days regarding what you may expect. Please take it easy for the rest of today. DO NOT drive a car for the remainder of the day. If you feel sore where the needle(s) entered for the block or develop a flare-up of pain over the next few days, please use ice on the area. You may leave the ice on for up to 20 minutes at a time. Do not use heat, as this may cause swelling. As long as your primary doctor has indicated no restrictions, you may take a mild pain medicine, such as acetaminophen (Tylenol), ibuprofen (Advil, Nuprin, Motrin IB, etc.) or aspirin, if needed. The steroid injection usually takes a few days to become effective. On average, you may notice somerelief in 3 -5 days. However, it may take up to 10 - 14 days to know whether the injection was helpful. If the block causes numbness/weakness, it should wear off within a few hours. If the area that the needle(s) were inserted becomes hot, red, swollen, or increasingly tender, or if you develop a fever (100.5 or greater) or chills along with these symptoms, please call our office immediately. If you develop increasingly severe back pain, continued numbness or weakness of the legs or changesin your bladder or bowel functions, please call our office immediately. Instructions for follow-up If you have any questions about your block, please call Patient Education Topic: Method: Handout and Verbal Taught to: Patient Barriers: None Outcomes: independent and verbalized understanding Signature: SOHAN GALICIA RN documented in this encounter Progress Notes * Gissel Andersen MA - 05/13/2023 1030 EDT [facility] Rooming Note Does patient have a Card Assembler? Yes Is patient NPO? (Solids since midnight & liquids for 4 hrs) No Blood Thinners: Is patient on Blood Thinners? No If yes, taking? If stopped, who authorized stopping? Related comments: Infections: Any recent infections, fever of illnesses? No If on antibiotics, is it 7-10 days past the date of completion of antibiotics? No : (for females of child-bearing age) Is there a chance current ? Do you have any type of implanted device? No Vaccination: Have you had or are you planning to have a vaccination in the 2 weeks? No Other: No * Sohan Galicia RN - 05/13/2023 1030 EDT ATTENTION: An active Time-Out initiated by the Provider requires that all members of the proceduralsupport team are present and must stop activity until the Time-Out is completed. The Nurse will have in their possession the signed consent to compare to the verbal verification ofthe items below: [Verified] Patient identifier #1: Full Name [Verified] Patient Identifier #2: Date of [Verified] No allergy to sterile prep products, steroids, local anesthetics, band-aids, or contrastdye [Verified] Full team and patient verification of location of pain and procedure to be performed [Verified] Site marked (Region and/or Laterality) [Verified] Presence of Implantable Devices [Verified] Safety devices are in place (Grounding pad, X-rays available, and/or Magnet) [Verified] Consent signed and matches planned procedure and site marking [Verified] Active verbal communication by the entire procedural team was completed. * Adrien Bernstein MD - 05/13/2023 1030 EDT Patient Name: Yasmani Glaser : 1970 Date of Service: 05/13/23 Chief Complaint: Chief Complaint Patient presents with ??? Back Pain Patient is here for lower back, butt and leg pain Certified Performance Technologist: Dr. Somers Forklift Picker: MD Day Procedure: Caudal epidural steroid injection Interval History: Patient presents today regarding their chronic low back pain Please refer to ELADIO Marquez note on 03/31/23 for full details regarding the patient's pain complaint.Patient currently denies any progressive weakness, unexplained fever, trauma or unexplained weight loss. The patient reports no recent changes in the character, quality, or distribution of the pain. There are no recent onset of new associated symptoms such as changes in strength, sensation, or bladder control. All previous medical records including current medications, anticoagulation status, anysigns of current infection, and new imaging were reviewed. Injection History: 05/13/23: Caudal epidural steroid injection Numerous back surgeries/revisions (see past surgical hx) (Patient reports other injections but does not remember exactly where) 10/09/2011: Left sacroiliac joint injection No improvement 08/18/2011:??Transforaminal epidural ??steroid injection at the left??L5- S1??foramen: Worsening of pain ?? Previous surgeries : L3-S1 fusion Bilateral SI joint fusions Physical Exam: Vitals: BP 134/78 (BP Cuff Location: Right arm, BP Patient Position: Sitting, BP Cuff Sizes: Adult,long) Pulse 53 Temp 36.1 ??C (97 ??F) (Tympanic) Resp 16 SpO2 99% General: Patient is alert and oriented, no acute distress. Lungs: symmetric chest rise, no evidence of labored breathing Skin: clear, warm, dry and intact and no rashes, bruises or petechiae noted Assessment: 1. Lumbar radiculopathy, chronic 2. Lumbar radicular pain Plan: Mr. Yasmani Glaser is a 53 y.o. male that presents to the pain clinic to undergo a caudal epidural steroid injection. All risks, benefits, and alternatives were thoroughly explained to Mr. Yasmani Glaser who verbally communicated understanding of the management plan. Followup: with Marian Marquez in 3 weeks. Please discuss either repeat injections or SCS PROCEDURE: The patient provided informed written consent to proceed with this procedure following a detailed discussion of the risks and benefits associated with caudal epidural steroid injection. The patient was then placed in the prone position, the skin over the sacrum was prepped with chlorhexadine, and the site was draped with sterile towels. Strict sterile technique was maintained throughout the procedure. The sacral hiatus was identified by palpation and a 22 gauge needle was inserted through the sacrococcygeal membrane after anesthetizing the skin and subcutaneous tissue at this location by injecting1% lidocaine. Flouroscopy was performed to guide the injection from a lateral view in order to visualize entry in to the epidural space, then by AP view to confirm our midline position. There were noparasthesias and aspiration was negative. Contrast dye was injected under live fluoroscopy demonstrating a typical caudal epidural pattern with no evidence of intravascular or intrathecal injection. The procedure was completed by injecting 80 mg Depo-Medrol and 9 ml Normal Saline incrementally. Theneedle was then flushed and withdrawn, there were no apparent complications, the patient tolerated the procedure well and was discharged in stable condition. Written and verbal discharge instructionswere reviewed with the patient prior to discharge. Fluoroscopic images were saved during the procedure Adrien Bernstein MD [facility] Interventional Pain Medicine Fellow (PGY-5) 05/13/23 Attending attestation: I saw and examined the patient with fellow/resident. I agree with the findings and plan of care documented in this note. In addition, I was present and participated during the entire procedure. AD Kraft 05/13/2023 documented in this encounter Plan of Treatment Not on file documented as of this encounter Visit Diagnoses Diagnosis Lumbar radiculopathy, chronic- Primary Thoracic or lumbosacral neuritis or radiculitis, unspecified Lumbar radicular pain Thoracic or lumbosacral neuritis or radiculitis, unspecified documented in this encounter Administered Medications Inactive Administered Medications - up to 3 most recent administrations Medication Order MAR Action Action Date Dose Rate Site Iohexol (OMNIPAQUE 180) injection 3 mL 3 mL, neural-axial, NOW X1, 1 dose, On Thu05/13/23 at 1045, Routine Given by Other 05/13/2023 10:20 EDT 3 mL methylPREDNISolone ACETATE (DEPO-MEDROL) injection 80 mg 80 mg, neural-axial, NOW X1, 1 dose, On Thu05/13/23 at 1045, Routine Given by Other 05/13/2023 10:20 EDT 80 mg documented in this encounter Care Teams Cigarette Vendor Relationship Specialty Start Date End Date Vilma Givens [address] [facility] [place] [address] PCP - General Internal Medicine - Primary Care 05/13/23 documented as of this encounter
--- OUTSIDE RECORDS SUMMARY | 2024-02-29 08:17 | XMS_ITS ---
Author Organization Unknown Address [address] [place] [phone] Phone Care Team Providers Care Actuarial Associate Name Role Phone ANDRE Foote Attending Unavailable Results XR KNEE 4V LT* - Completed: 05/19/2023 13:18 LOINC: [facility] [place], [place] [address] PACS POWER PLANT ASSISTANT REPORT Patient Name: ANTONY WEINER MRN: Sex: : Age: [id number] M [id number] Account: Accession: Admit: StayType: [id number] 05/19/2023 O/P Ordered: Order ID: Submitted: Ordering Provider: 05/19/2023 13:04 [id number] KT JOSE POWELL Completed: Technologist: Resulted: 05/19/2023 13:18 SLG 05/19/2023 14:31 Study Description: XR KNEE 4V LT Study Reason: LT KNEE PAIN TECHNIQUE: 2D digital imaging was performed. COMPARISON: No exams were available for comparison FINDINGS: NUMBER OF VIEWS: 4 No evidence of fracture nor prominent joint effusion. There is significant narrowing of the medial compartment best seen on the weightbearing view. Lateral compartment exhibits normal height and patellofemoral compartment appears unremarkable. IMPRESSION: Degenerative narrowing of the medial compartment. Report Digitally Signed by Eran Obregon on 05/19/2023 02:31 PM EDT Social History Type Status Start Date End Date Code Code Syst em Smoking History Never smoker (Never Smoked) 014646561 SNOMED CT Sex Male Assessment You had the following problems:HTNNEUROPATHYDEPRESSIONDIABETESPANCREATITIS Hospital Discharge Instructions Should you have any questions prior to discharge, please contact a member of your healthcare team. If you have left the hospital and have any questions, please contact your primary care physician. Reason For Referral No Data Found Problems Problem Start Date Resolved Date Status Code Code System HTN active 38776372 SNOMED-CT NEUROPATHY active 190179754 SNOMED-CT DEPRESSION active 26165660 SNOMED-CT DIABETES active 22708368 SNOMED-CT PANCREATITIS active 00411016 SNOMED- CT ABDOMINAL PAIN 10/06/2021 10/27/2021 resolved 72766490 SNO MED-CT JAUNDICE 10/27/2021 resolved 43146564 SNOMED-CT Allergies and Adverse Reactions Allergy Substance Reaction Severity Start Date Concern Status Co de Code System No Known Drug Allergies Moderate Active 885480163 SNOMED-CT Plan of Treatment X-RAY 05/19/2023 MRI L SPINE W/O CONTRAST 02/23/2023 US ABDOMEN LIMITED 1 ORGAN 06/09/2022 PFT 04/15/2022 US ABDOMEN LIMITED 1 ORGAN 01/20/2022 PFT COMPLETE W BROCHODILATER 12/30/2021 BONE DENSITY DEXA SPINE & HIP 2 BONE DENSITY DEXA SPINE & HIP 2 EXPOSURE 06/06/2021 Encounters Encounter Diagnosis Start Date Code Code Sys tem Unilateral primary osteoarthritis, left knee 3 SNOMED-CT Personal Care Team Section Performer Name Performer Role Active Date Inactive Da te
--- OUTSIDE RECORDS SUMMARY | 2024-02-29 08:17 | XMS_ITS | Clinical Summary ---
Author Organization [facility] Address [address] [place] [address] Care Team Providers Care Manager Portable Name Role Phone ChonVilma Primary Care Provider [phone] Allergies No known active allergies Medications Medication [...] Liver cirrhosis secondary to nonalcoholic steatohepatitis ([place]) ([facility]) 09/04/2015 Back pain 08/11/2014 Overview: S/p repeated lumbar surgeries with posterior spinal fusion and multiple revisions complicated by wound infection due to Staph epidermidis. Resolved Problems Problem Noted Date Diagnosed Date Resolved Date Calculus of gallbladder and bile duct without cholecystitis 10/31/2021 11/29/2021 Pancreatitis, gallstone 10/27/202110/25 Immunizations Name Administration Dates Next Due Influenza Vaccine Quad PF 0.5 ml IM (6 mos+) 05/2022() Surgical History Surgery Date Site/Laterality Comments LUMBAR FUSION OTHER SURGICAL HISTORY SI joint infusion x3 BONE INCISION AND DRAINAGE x3 HIP SURGERY COLONOSCOPY 07/27/2014 - 07/26/2015 LIVER BIOPSY 07/27/2015 - 08/26/2015 CHOLECYSTECTOMY Medical History Medical History Date Comments HTN (hypertension) Sleeping difficulty Back pain 08/11/2014 S/p repeated lum bar surgeries with posterior spinal fusion and multiple revisions complicated by wound infection due to Staph epidermidis. Nonspecific finding on exami nation of urine Diarrhea Depression Lung disease GERD (gastroesophageal reflux disease) Staph infection 06/2014 s/p back surgery Liver cirrhosis secondary to nonalcoholic steatohepatitis ([place]) ([facility]) 09/04/2015 Anxiety Pancreatitis, gallstone 10/27/2021 Family History Medical History Relation Comments Cancer Father Diabetes Father Heart Disease Father Relation Status Comments Father Alive Mother Alive Social History Tobacco Use Types Packs/Day Years [...] on file Sexual Orientation Not on file Obstetrics History Last Filed Vital Signs Vital Sign Reading [...] Body Mass Index 36.28 11/04/2021 0019 EDT Plan of Treatment Health Maintenance Due Date Last Done Comments Hepatitis B Vaccine (1 of 3 - 19+ 3-dose series) 03/24 COVID-19 Vaccine (2022- season) 2023 Colonoscopy (Colon Cancer Screening) Discontinued 03/27 Colorectal Cancer Screening Discontinued Hepatitis C Screen Completed 06/29/2015 Cologuard (Colon Cancer Screening) Discontinued FIT Test (Colon Cancer Screening) Discontinued Sigmoidoscopy (Colon Cancer Screening) Discontinued Medical Devices Implanted Type Area Financial Accounting Manager Device Identifier Shelf Expiration Date Model / [...] Hepatitis C Ab Negative 06/29/2015 13:44 EST [facility] Comment:Reference Range: Neg ative Blood specimen (specimen) BLOOD SPECIMEN / Unknown 06/29/2015 10:50 EST 06/29/2015 11:24 EST Yaniv Herbert MD PhD CHEMISTRY & BLO OD GAS ORDERABLES [facility] [address] [place] [address] * COLONOSCOPY (04/11/2015) Colonoscopy [facility] Comment:no follow up recomme nded Colonoscopy, External [facility] Anatomical Region Laterality Modality Endoscopy 04/11/2015 Keyshawn Bui MD GI PROCEDURE ORDER ALBARO from Last 3 Months or Most Recently Relevant to Health Maintenance Yasmani Glaser Personal/Family Self 1970 [address] [place] [address] Yasmani Glaser Personal/Family Self 1970 [address] [place] [address] Yasmani Glaser Personal/Family Self 1970 [address] [facility] [place] [address] Yasmani Glaser Personal/Family Self 1970 [address] [place] [address] [facility] [place] [address] Yasmani Glaser Personal/Family Self 1970 [address] [place] [address] [facility] [place] [address] Yasmani Glaser Personal/Family Self 1970 [address] [place] [address] [facility] [place] [place] [address] Yasmani Glaser Personal/Family Self [address] [place] [address] [address] [place] [address] Advance Directives For more information, please contact: [phone] * Full Code (Latest Code Status on [...] Made the Decision? Default/Not Discussed Care Teams Manager Portable Relationship Specialty Start Date End Date Vilma Givens [address] [place] [address] PCP - General Internal Medicine - Primary Care 05/13/23
--- OUTSIDE RECORDS SUMMARY | 2024-02-29 08:17 | XMS_ITS | Encounter Summary ---
Author Organization [facility] Address [address] [place] [address] Care Team Providers Care [employer] Baseball Coach Name Role Phone Vlima Givens Primary Care Provider [phone] Encounter Details Date Type Department Care Team (Late st Contact Info) Description 05/22/2023 12:30 EDT Phlebotomy Only [facility] - Outpatient Phlebotomy Drawing [address] [place], [place] [id number] Lab, [facility] Op Phlebotomy Encounter for long-term (current) use of other medications (Primary Dx); Bipolar disorder ([facility]) Social History Tobacco Use Types Packs/Day Years [...] No 10/27/2021 documented as of this encounter Plan of Treatment Not on file documented as of this encounter Procedures Procedure Name Priority Date/Time Associated Diagnosis Comments VALPROIC ACID LEVEL Routine 05/22/2023 1 2:50 EDT Encounter for long-term (current) use of other medications Bipolar disorder ([facility]) COMPREHENSIVE METABOLIC PANEL (CMP) Routine 05/22/2023 12:50 EDT Encounter for long-term (current) use of other medications Bipolar disorder ([facility]) documented in this encounter Results * VALPROIC ACID LEVEL (05/22/2023 12:50 EDT) Valproic Acid 51 50 - 100 ug/mL 05/22/2023 13:17 EDT [facility] Blood VENOUS BLOOD / Unknown Venipuncture / Unknown 05/22/2023 12:50 EDT 05/22/2023 12:52 EDT Latonia Masters [facility]- CHEMISTRY & B LOOD GAS ORDERABLES [facility] [address] [place] [id number] * (ABNORMAL) COMPREHENSIVE METABOLIC PANEL (CMP) (05/22/2023 12:50 EDT) Sodium 141 136 - 145 mmol/L 05/22/2023 13:11 EDT [facility] Potassium 4.5 3.5 - 5.0 mmol/L [facility] Chloride 105 96 - 110 mmol/L [facility] CO2 Total 27 22 - 32 mmol/L 05/22/2023 13:11 [facility] Glucose 80 70 - 99 mg/dl 05/22/2023 13:11 [facility] BUN 9(L) 10 - 26 mg/dL 05/22/2023 13:11 [facility] Creatinine 0.59(L) 0.66 - 1.25 mg/dL 05/22/2023 13:11 [facility] eGFR 115 >60 mL/min/1.7 3m2 05/22/2023 13:11 [facility] Total Protein 7.3 6.3 - 8.2 g/dL 05/22/2023 13:11 [facility] Albumin 4.1 3.4 - 4.9 g/dL 05/22/2023 13:11 [facility] Alkaline Phosphatase 48 38 - 126 U/L 05/22/2023 13:11 [facility] AST 20 15 - 46 U/L 05/22/2023 13:11 [facility] ALT 18 <50 U/L 05/22/2023 13:11 [facility] Bilirubin, Total 0.6 <1.4 mg/dL 05/22/20 13:11 [facility] Calcium 8.9 8.5 - 10.5 mg/dL 05/22/2023 13:11 [facility] Albumin/Globulin Ratio 1.3 1.0 - 2.5 g/dL 05/22/2023 13:11 [facility] Anion Gap 9 5 - 14 mmol/L 05/22/2023 13:11 [facility] Blood VENOUS BLOOD / Unknown Venipuncture / Unknown 05/22/2023 12:50 EDT 05/22/2023 12:52 EDT Latonia Masters PMHNP-BC CHEMISTRY & B LOOD GAS ORDERABLES [facility] [address] [place] [address] documented in this encounter Visit Diagnoses Diagnosis Encounter for long-term (current) use of other medications- Primary Bipolar disorder ([facility]) Bipolar disorder, unspecified documented in this encounter Care Teams Middle [employer] Baseball Coach Relationship Specialty Start Date End Date Vilma Givens [address] [place] [address] PCP - General Internal Medicine - Primary Care 05/13/23 documented as of this encounter
--- OUTSIDE RECORDS SUMMARY | 2024-02-29 08:17 | XMS_ITS ---
Author Organization Unknown Address [address] [place] [phone] Phone Care Team Providers Care Lighting Equipment Operator Name Role Phone ANDRE Foote Attending Unavailable Results MR LS SPINE WO CONTRAST - Co mpleted: 02/23/2023 08:43 LOINC: [facility] [place], [place] [address] PACS PRODUCTION MACHINIST REPORT Patient Name: ANTONY WEINER MRN: Sex: : Age: [id number] M [id number] Account: Accession: Admit: StayType: [id number] 02/23/2023 O/P Ordered: Order ID: Submitted: Ordering Provider: 02/23/2023 07:54 [id number] [facility] JOSE POWELL Completed: Technologist: Resulted: 02/23/2023 08:43 HTP 02/23/2023 08:55 Study Description: MR LS SPINE WO CONTRAST Study Reason: BACK PAIN TECHNIQUE: Multiplanar multisequence MRI of the Lumbar spine was performed. COMPARISON: No exams were available for comparison FINDINGS: Bones: The last intervertebral disc space is designated the L5/S1 level for the numbering purpose of this examination. The vertebral body heights are well maintained. Alignment is satisfactory. The signal characteristics are unremarkable. Posterior fusion hardware noted from L3-S1. Cord: The conus tip ends at the [T12 level. It is of normal size and signal intensity. T12-L1: Minimal disc bulging. No central spinal canal or neural foraminal stenosis. L1-2: Endplate osteophytes. Mild loss of disc height. Mild broad-based disc bulging. No central spinal canal or neural foraminal stenosis. L2-3: Endplate osteophytes. Mild concentric disc bulging. Mild facet degenerative changes. Mild bilateral neural foraminal narrowing. No central spinal canal stenosis. L3-4: Postsurgical changes. No disc herniations or bulges are present. No central spinal canal or neural foraminal stenosis. L4-5: Postsurgical changes. No disc herniations or bulges are present. No central spinal canal or neural foraminal stenosis. L5-S1: Postsurgical changes. No disc herniations or bulges are present. No central spinal canal or neural foraminal stenosis. Soft tissues: Hardware through bilateral SI joints noted. The paraspinal soft tissues show postsurgical changes.. IMPRESSION: Mild degenerative disc changes from T12-L1 through L2-3. Mild bilateral neuroforaminal narrowing noted at L2-3. No disc herniation or central canal stenosis at any level. Postsurgical changes of posterior fusion from L3-S1. Report Digitally Signed by Pam Lin on 02/23/2023 08:55 AM EDT Social History Type Status Start Date End Date Code Code Syst em Smoking History Never smoker (Never Smoked) 742598735 SNOMED CT Sex Male Assessment You had the following problems:HTNNEUROPATHYDEPRESSIONDIABETESPANCREATITIS Hospital Discharge Instructions Should you have any questions prior to discharge, please contact a member of your healthcare team. If you have left the hospital and have any questions, please contact your primary care physician. Reason For Referral No Data Found Problems Problem Start Date Resolved Date Status Code Code System HTN active 12432766 SNOMED-CT NEUROPATHY active 437834296 SNOMED-CT DEPRESSION active 72387463 SNOMED-CT DIABETES active 52066827 SNOMED-CT PANCREATITIS active 42193872 SNOMED- CT ABDOMINAL PAIN 10/06/2021 10/27/2021 resolved 39964901 SNO MED-CT JAUNDICE 10/27/2021 resolved 09878834 SNOMED-CT Allergies and Adverse Reactions Allergy Substance Reaction Severity Start Date Concern Status Co de Code System No Known Drug Allergies Moderate Active 812252356 SNOMED-CT Plan of Treatment X-RAY 05/19/2023 MRI L SPINE W/O CONTRAST 02/23/2023 US ABDOMEN LIMITED 1 ORGAN 06/09/2022 PFT 04/15/2022 US ABDOMEN LIMITED 1 ORGAN 01/20/2022 PFT COMPLETE W BROCHODILATER 12/30/2021 BONE DENSITY DEXA SPINE & HIP 2 BONE DENSITY DEXA SPINE & HIP 2 EXPOSURE 06/06/2021 Encounters Encounter Diagnosis Start Date Code Code Sys tem Degeneration of lumbar intervertebral disc 02/23/2023 91290785 SNOMED-CT Personal Care Team Section Performer Name Performer Role Active Date Inactive Da javier
--- OUTSIDE RECORDS SUMMARY | 2024-02-29 08:18 | XMS_ITS | Encounter Summary ---
Author Organization [facility] Address [address] [place] [address] Care Team Providers Care Electrostatic Painter Name Role Phone Tristan Collins MD Primary Care Provider Unav ailable Reason for Visit * Reason Onset Date Comments DME 09/08/2022 Encounter Details Date Type Department Care Team (Late st Contact Info) Description 09/08/2022 Telephone [facility] Sleep Program - [address] [place], [place] [phone] Sleep, Tech [address], [place] [phone] DME Social History Tobacco Use Types Packs/Day Years [...] No 10/27/2021 documented as of this encounter Miscellaneous Notes * Telephone Encounter - Lupe Carlson - 09/08/2022 1532 EST Jacob from [place] returned my phone call. He states that pt's were instructed to pull the modem out of their old PAP devices to put in the new ones in order to keep remote access. He states that it appears this pt did not do that so remote access will not be able to be established. documented in this encounter Plan of Treatment Not on file documented as of this encounter Visit Diagnoses Not on filedocumented in this encounter Care Teams Electrostatic Painter Relationship Specialty Start Date End Date Tristan Collins MD PCP - General 06/26/11 05/12/23 documented as of this encounter
--- OUTSIDE RECORDS SUMMARY | 2024-02-29 08:18 | XMS_ITS | Encounter Summary ---
Author Organization [facility] Address [address] [place] [address] Care Team Providers Care Electrician Name Role Phone Tristan Collins MD Primary Care Provider Unav ailable Reason for Visit * Reason Onset Date Comments Appointment Related 05/01/2022 Encounter Details Date Type Department Care Team (Late st Contact Info) Description 05/01/2022 Telephone [facility] Sleep Program - [address] [place], [place] [phone] Марина Tsai MITER CUTTER [address] [facility] [address] [place] [address] Appointment Related Social History Tobacco Use Types Packs/Day Years [...] encounter Miscellaneous Notes * Telephone Encounter - Beena Reno - 05/02/2022 0928 EDT I spoke to patient to schedule a down load prior to upcoming appointment. He states he hasn't received his machine yet. Appointment rescheduled to 07/16/22 * Telephone Encounter - Alley Simon - 05/01/2022 1304 EDT Left voicemail message requesting call back to schedule download needed for FUR appointment with ESon Saturday 05/05. If no download by Thursday, Thursday appointment will need to be rescheduled. FAXed copy of January visit office notes to [facility] via [employer] per in basket. documented in this encounter Plan of Treatment Not on file documented as of this encounter Visit Diagnoses Not on filedocumented in this encounter Care Teams Electrician Relationship Specialty Start Date End Date Tristan Collins MD PCP - General 06/26/11 05/12/23 documented as of this encounter
--- OUTSIDE RECORDS SUMMARY | 2024-02-29 08:18 | XMS_ITS | Encounter Summary ---
Author Organization [facility] Address [address] [place] [address] Care Team Providers Care Executive Services Administrator Name Role Phone Tristan Collins MD Primary Care Provider Unav ailable Reason for Visit * Reason Onset Date Comments DME 04/29/2022 Encounter Details Date Type Department Care Team (Late st Contact Info) Description 04/29/2022 Telephone [facility] Sleep Program - [address] [place], [place] [phone] Sleep, Tech [address] [place], [place] [phone] DME Social History Tobacco Use Types Packs/Day [...] * Telephone Encounter - Lupe Carlson - 04/29/2022 1002 EDT Called [employer] in [place] and spoke to Cait. Inquired if we could get remote access to pt's replacement device. Cait stated that we are already linked in to pt's device but he lives in an [place] business transformation [place] so we won't see data. Cait also stated that pt's account with them is in suspension due to non compliance. He is not able to receive supplies from them at this time. She stated that we could send over notes from his previous and upcoming visits and that should help him get off suspension. Encounter forwarded to [facility]SS to schedule an onsite download prior to his 05/05 appointment and to faxover notes from past visit. documented in this encounter Plan of Treatment Not on file documented as of this encounter Visit Diagnoses Not on filedocumented in this encounter Care Teams Executive Services Administrator Relationship Specialty Start Date End Date Tristan Collins MD PCP - General 06/26/11 05/12/23 documented as of this encounter
--- OUTSIDE RECORDS SUMMARY | 2024-02-29 08:18 | XMS_ITS | Encounter Summary ---
Author Organization [facility] Address [address] [place] [address] Care Team Providers Care Fitter Armament Name Role Phone Tristan Collins MD Primary Care Provider Unav ailable Reason for Visit * Reason Comments Follow-up Encounter Details Date Type Department Care Team (Late st Contact Info) Description 01/24/2022 13:[address] [facility] Sleep Program - [address] [place], [place] [phone] Марина Tsai BOBBIN CLEANER HAND [address] [facility] [address] [place] [address] Obstructive sleep apnea (Primary Dx) Social History Tobacco Use Types Packs/Day Years [...] Sign Reading Time Taken Comments Blood Pressure - - Pulse - - Temperature - - Respiratory Rate - - Oxygen Saturation - - Inhaled Oxygen Concentration - - Weight 98.9 kg (218 lb) 01/24/2022 1251 EDT per pt Height - - Body Mass Index 36.28 11/04/2021 0019 EDT documented in this encounter Functional Status Functional [...] No 10/27/2021 documented as of this encounter Progress Notes * Марина Tello NP - 01/24/2022 1300 EDT [facility] SLEEP PRO[facility] Date of Service: 01/24/2022 Name: Yasmani Glaser : 1970 TELEMEDICINE VIDEO VISIT Today's visit was provided through telemedicine video conferencing: The location of the patient : Home The location of the provider: Home Office The following staff and their role did participate in today's encounter: Марина Tello NP The concept of ???Telemedicine?? has been described to the patient.? Patient has been informed of the anticipated benefits and possible risks.? Patient understands the information provided regardingtelemedicine, has had the opportunity to ask questions about this information, and all questions have been answered to patient???s satisfaction. Patient consents for the use of telemedicine in his/her medical care and authorizes the transmission of any relevant medical information to providers and their staff involved in patient???s medical or mental health care. Subjective: Chief Complaint(s): Obstructive Sleep Apnea HPI: Yasmani Glaser is a 51 y.o. male w/hx/o hypertension, anxiety, gastroesophageal reflux disease, and cirrhosis secondary to MITCHELL, who presents to the [facility] on 01/24/2022 for follow-up of NERIS on CPAP therapy. Pt is unaccompanied today. Pt initially presented?? to another sleep clinic with symptoms of snoring and frequent nocturnal awakenings, and he underwent a split night PSG at [facility] [place] [facility] in [place], [place], which was reportedly consistent with obstructive sleep apnea. He initially used CPAP 6-12cm H2O, until about 2017, when he started to struggle with the use of CPAP due to waking up with a strange taste in his mouth,so he discontinued CPAP use entirely. He presented to this sleep clinic in 08/2019, at which time he had lost 60lb since the time of his initial NERIS evaluation, but still reported symptoms of snoring, gasping respirations, and morning headaches. Repeat testing was recommended, and he underwent split night PSG 10/07/19, which revealed an AHI of 23, and he was prescribed CPAP 5- 15cm H2O. He was lastseen 11/30/20, at which time he was not using CPAP because he did not have a functioning machine, buthe was motivated to start using it, and a machine was ordered. Pt was not seen for a follow up after that, and it is unclear if he ever got a machine. He returns today for follow-up. He has not been using CPAP for about a year due to the recall. However, recently he got a new machine sent to him in the mail, but it is just the base and he does not have any supplies. He feels motivated to start using CPAP again once he has the proper supplies. Mask: FFM, comfortable, no bothersome leak Pressure: comfortable Humidifier: using Oral dryness: denies Nasal congestion: denies His sleep is often disrupted by pain from neuropathy and sciatica. Bedtime: 12 AM LYNSEY: quick with trazodone Awakenings: to reposition due to pain, occasionally hard to get back to sleep due to discomfort Rise time: 5-8 AM Upon awakening: feels rested once up and going for the day, was feeling better with CPAP use Daytime sleepiness: denies Naps: none Driving: denies difficulty maintaining wakefulness Sleep Aids: trazodone Stimulants: none Caffeine: 4 cups, AM only Alcohol: sober for 2 years Tobacco: none Marijuana: none Weight: last sleep visit was 220lb, current is 218lb Exercise: stretching and has a physical job with a lot of walking Patient Active Problem List Diagnosis ??? Back pain ??? Liver cirrhosis secondary to nonalcoholic steatohepatitis (MITCHELL) (HCC-CMS) (HCC) Past Medical History: Diagnosis Date ??? Anxiety ??? Back pain 08/11/2014 S/p repeated lumbar surgeries with posterior spinal fusion and multiple revisions complicated by wound infection due to Staph epidermidis. ??? Depression ??? Diarrhea ??? GERD (gastroesophageal reflux disease) ??? HTN (hypertension) ??? Liver cirrhosis secondary to nonalcoholic steatohepatitis (MITCHELL) (HCC-CMS) (HCC) 09/04/2015 ??? Lung disease ??? Nonspecific finding on examination of urine ??? Pancreatitis, gallstone 10/27/2021 ??? Sleeping difficulty ??? Staph infection 06/2014 s/p back surgery Current Outpatient Medications Medication ??? acamprosate (CAMPRAL) 333 mg tablet ??? acetaminophen (TYLENOL) 500 mg tablet ??? acetylcysteine (NAC) 600 mg capsule ??? busPIRone (BUSPAR) 10 mg tablet ??? diclofenac sodium gel ??? empagliflozin (JARDIANCE) 10 mg tablet ??? gabapentin (NEURONTIN) 300 mg capsule ??? magnesium oxide (MAG-OX) 400 mg (241.3 mg magnesium) tablet ??? ONE TOUCH DELICA 33 gauge misc ??? ONETOUCH VERIO TEST STRIPS test strips ??? traZODone (DESYREL) 100 mg tablet ??? triamcinolone (KENALOG) 0.1 % cream ??? VITAMIN D3 50 mcg (2,000 unit) tablet No current facility-administered medications for this visit. Objective: Wt 98.9 kg (218 lb) Comment: per pt BMI 36.28 kg/m?? Wt Readings from Last 5 Encounters: 01/24/22 98.9 kg (218 lb) 11/04/21 99.8 kg (220 lb 0.3 oz) 11/30/20 99.8 kg (220 lb) 10/07/19 89.8 kg (198 lb) 08/31/19 89.8 kg (198 lb) Physical Exam: General: Well developed, well nourished male who is in no apparent distress Head: Atraumatic, normocephalic Mouth: The lips are without lesion. Neurologic: Speech fluent. Psych: Alert, oriented and cooperative, normal attention span and concentration. Relevant Data: COMPLIANCE REPORT: No current usage d/t recall PSG Data: Split Night Polysomnogram??on 10/07/2019??(pt weight 198lb): INDICATION FOR STUDY: The patient is a 49-year-old man who was diagnosed with obstructive sleep apnea several years ago and was treated with CPAP. ??He discontinued CPAP a couple of years ago. ??Since his prior evaluation has had a significant weight loss, split-night polysomnogram was requested inorder to reevaluate the status of his sleep disordered breathing. ??The patient endorses loud snoring and disrupted sleep. ??Comorbidities include hepatic cirrhosis, back pain, anxiety, depression, GERD, hypertension, and this is not an inclusive list. FINDINGS: *The EEG was bland with a paucity of formed elements of sleep, and was otherwise unremarkable. ??Sleep onset latency was prolonged at 40 minutes, and sleep efficiency was reduced to 72% during the diagnostic portion of the study as a result of this and occasional arousals and brief awakenings that were generally associated with respiratory events. ??Sleep efficiency improved to 87% during the therapeutic portion of the study. ??Stage N1 or light, transitional sleep, was markedly increased during both the diagnostic and therapeutic portions of the study at over 40% of sleep observed. ??REM sleep onset latency was normal and REM was reduced proportionally, stage N3 was not observed. ??The alterations in sleep architecture nonspecific in the setting. *The EKG was notable for occasional PVCs, his average heart rate during the diagnostic portion study was 72, it was 66 during the therapeutic portion. *The patient was found to have sleep disordered breathing in the form of hypopneas, which were muchmore frequent during REM sleep. ??The apnea hypopnea index (AHI), overall, was 23 consistent with moderate obstructive sleep apnea was 44 during supine sleep and 7 when sleeping on his right side. ??The REM AHI was 44. ??His mean oxygen saturation during the diagnostic portion of the study was 88 during sleep with a maikol of 66 and 52 minutes were spent below 89% saturated. ??Oxygen desaturation was most profound during supine sleep particularly during stage REM while in the supine position. ??CPAP was applied via full facemask at 2:15 AM. ??This was titrated from 5 to 10 cm of water pressurein response to obstructive events.. ??His airway appeared to be reasonably well controlled at 5 cm of water pressure during non-REM nonsupine sleep with oxygen saturations around 92, there were hypopneas during REM in the supine position at 8 cm of water pressure associated with oxygen desaturation. ??His airway appeared to be reasonably well controlled with just a few hypopneas during REM in thesupine position at 10 cm of water with adequate oxygenation. ??CPAP appeared to be effective and well-tolerated. ??Transcutaneous CO2 monitoring was performed, levels were generally below 45 mmHg, hypoventilation was not evident. *Excessive limb movements were not observed. RECOMMENDATIONS: *The patient will be notified by the staff at the [facility] of the results of the test. *Auto titrating CPAP with a pressure range of 5-15 cm of water will be prescribed. *Follow-up will be arranged??at the??at the [facility]. Assessment: 51 y.o. male who presented to the [facility] Sleep [facility] on 01/27/2022 for follow-up of NERIS on CPAP therapy. Patient has not been using CPAP for the past year due to his machine being recalled. Recently, he had a replacement machine sent to him, but he did not realize they were only going to replace the body of the machine and not any of the supplies. He does not have any supplies, so has not resumed CPAPuse. An order will be sent to his [employer] company for supplies, and he will follow-up with them to obtain what he needs to start using CPAP again. When he was using CPAP, he was not having any problem with it, and it helped him feel more rested, so he is motivated to resume consistent use. His data will be monitored remotely as he starts to use CPAP, to ensure adequate control of NERIS, and any pressure adjustments can be made as necessary. He will also call if he identifies barriers to resuming use of CPAP. Otherwise, he will continue to follow-up with his other providers for medication management. Recommend maintaining consistent sleep and wake times and trying to allow 7-8 hours for total sleep per night, all with CPAP. Also recommend limiting caffeine use, continuing with regular activity as tolerated, and weight loss. Recommendations: ?? Resume use of CPAP with all sleep ?? Patient counselin. Avoidance of drowsy driving and countermeasures discussed. 2. Discussed importance of weight loss. 3. Good sleep hygiene and the importance of consistent sleep and wake times, as well as avoiding orlimiting the use of caffeine/EtOH were discussed. 4. Reminded to replace disposable supplies at regular intervals. Pt is to notify me if there are any impediments to CPAP use, or if drowsiness becomes more problematic, otherwise I???ll plan a follow-up visit in 3 months. I spent a total of 20 minutes on the date of this encounter meeting with the patient and reviewing documentation/coordinating care as described in the above note. No procedures were performed at the time of the visit. Марина Tello NP 01/27/2022 documented in this encounter Plan of Treatment Not on file documented as of this encounter Visit Diagnoses Diagnosis Obstructive sleep apnea- Primary Obstructive sleep apnea (adult) (pediatric) documented in this encounter Historical Medications * This list may reflect changes made after this encounter. Medication Sig Dispensed Refills Start Date End Date gabapentin (NEURONTIN) 300 mg capsule Take 1 Capsule by mouth 4 times daily. added in this encounter Orders Equipment Count Last Ordered Date First Orde red Date CPAP/BIPAP GENERAL ORDER 1 01/27/2022 documented in this encounter Care Teams Fitter Armament Relationship Specialty Start Date End Date Tristan Collins MD PCP - General 06/26/11 05/12/23 documented as of this encounter
--- OUTSIDE RECORDS SUMMARY | 2024-02-29 08:18 | XMS_ITS | Encounter Summary ---
Author Organization [facility] Address [address] [place] [address] Care Team Providers Care Golf Player Assistant Name Role Phone Tristan Collins MD Primary Care Provider Unav ailable Reason for Referral * Specialty Diagnoses / Procedures Referred By Hemant linn Referred To Contact Shelby Dos Santos PA-C [address] [place] [address] Referral ID Status Reason Start Date Expiration Date Visits Re quested Visits Authorized Comments Please make an appointment with your primary care physician in 1 week(s). Call your physician immediately if you have any fevers greater than 100, drainage from your wound that is not clear or looks infected, persistent bleeding, increasing abdominal pain, problems urinating, or persistent nausea/vomiting. You should be aware that you may have right shoulder pain after surgery and that this will progressively go away. This is called 'referred pain' and is from the area of the gallbladder. It can also be caused by gas that may be trapped under the diaphragm from the surgery, especially if it was performed laparoscopically through mini-incisions. This gas will progressively get reabsorbed by your body. Our clinic nurse will call you in the next 3-4 days to see how you are doing at home and to schedule an outpatient post operative clinic appointment. If you have any questions or concerns, please call our clinic at [phone] . We have someone available 24 hours a day. We have held your blood pressure medicine, Chlorthalidone, as you had normal blood pressure while in the hospital. Please discuss when and how you should resume this medication with your primary care doctor as soon as possible. We are also restarting your home Diabetes medicine, Januvia. Please make sure to check your blood glucose levels regularly and discuss any medication adjustments with your primary care doctor via phone. It would be a good idea to call them this afternoon vs tomorrow. * Specialty Diagnoses / Procedures Referred By Hemant linn Referred To Contact Shelby Dos Santos PA-C [address] [place] [phone] Referral ID Status Reason Start Date Expiration Date Visits Re quested Visits Authorized Comments We are currently collecting quality data on patients having surgery. You may receive a phone call, email, and/or letter about your surgery asking you a series of follow up questions to evaluate specifics aspects of your care. Thank you for your participation. Reason for Visit * Auth/Cert Specialty Diagnoses / Procedures Referred By Hemant linn Referred To Contact Diagnoses Pancreatitis, gallstone PANCREATITIS Referral ID Status Reason Start Date Expiration Date Visits Re quested Visits Authorized [id number] 1 1 Encounter Details Date Type Department Care Team (Late st Contact Info) Description 10/27/2021 8:49 EDT - 11/04/2021 15:51 EDT Hospital Encounter [facility] General Medicine Unit [address] [place] [address] Case Alves MD [address] [place] [phone] Gissel Nunez MD MPH [address] [place] [phone] Juan Parks MD [address] [place], [place] [id number] Adrien Chapman MD [address] [place] [address], [address] [place] [address] Calculus of gallbladder and bile duct with obstruction without cholecystitis (Primary Dx); Pancreatitis, gallstone; Cholangitis; Liver cirrhosis secondary to nonalcoholic steatohepatitis (MITCHELL) ([facility]) (HCC) Discharge Disposition: Home or Self Care Social [...] on file Sexual Orientation Not on file COVID-19 Exposure Response Date Recorded In the last 10 days, have angelica u been in contact with someone who was confirmed or suspected to have Coronavirus/COVID-19? No / Unsure 10/30/2021 12:29 EDT documented as of this encounter Last Filed Vital Signs Vital Sign Reading Time Taken Comments Blood Pressure 130/62 11/04/2021 1300 EDT Pulse 82 11/04/2021 0800 EDT Temperature 37 ??C (98.6 ??F) 11/04/2021 1328 EDT Respiratory Rate 18 11/04/2021 1300 EDT Oxygen Saturation 98% 11/04/2021 1300 EDT Inhaled Oxygen Concentration - - Weight 99.8 kg (220 lb 0.3 oz) 11/04/2021 0019 E DT Height 165.1 cm (5' 5) 11/04/2021 0019 EDT Body Mass Index 36.61 11/04/2021 0019 EDT documented in this encounter [...] No 10/27/2021 documented as of this encounter Discharge Summaries * Shelby Dos Santos PA-C - 10/28/2021 1330 EDT HOSPITAL MEDICINE/Acute Care Surgery DISCHARGE SUMMARY Primary Care Provider: Tristan Collins Attending Physician: Juan Parks MD; Adrien Chapman MD [facility] Admit Date: 10/27/21 Discharge Date: 11/04/21 Disposition (location): Home Condition at Discharge: Improved Reason for Admission (chief complaint): Upper abdominal pain Principal/Final Diagnosis: Acute Pancreatitis with choledocholithiasis Additional Problems Managed in the Hospital: Active Hospital Problems Diagnosis Date Noted ??? *Pancreatitis, gallstone 10/27/2021 Resolved Hospital Problems No resolved problems to display. Principal Procedure: Laparoscopic Cholecystectomy Date: 11/03/21 Secondary Procedure: ERCP with sphincterotomy and stone extraction on 10/30/21 Hospital Course: The patient is a 51 y/o man with PMHx including prior ETOH use, compensated cirrhosis, DM, obesity and HTN, who initially presented to [facility] for several weeks of increasingupper abdominal pain radiating to his back. He was afebrile and HD stable, was found to have serologic evidence of pancreatitis and cholestatic hepatitis, as well as cholelithiasis and biliary ductaldilation on imaging. He was transferred to [facility] where an MRCP confirmed the presence of choledocholithiasis. He was started on empiric antibiotics for possible cholangitis and GI was consulted. Her underwent ERCP with sphintcerotomy and stone extraction, and improved quickly thereafter. Of note, he was found to have no varices, but evidence of mild portal gastropathy during his endoscopy. Surgery was consulted and he underwent cholecystectomy on 11/03/21 without complications. Intraoperative findings of mildly edematous gallbladder with a nodular liver consistent with cirrhosis of which the patient was informed post operatively. He was recovered and transferred to the floor. He was found to have adequate pain control with an oral regimen, was tolerating a regular diet without pain, had resumption of bowel function, and was deemed medically ready for discharge home. He will follow up with his PCP in 7-10 days and was instructed to call in the next 24 hours to discuss resumption of some LITIGATION CLAIM REPRESENTATIVE medications. His home chlorthalidone was held as his SBP were on the low end of normal while inpatient. He was additional instructed to resume his LITIGATION CLAIM REPRESENTATIVE Januvia with close monitoring of his BG. He underwent informed consent for his Narcotic prescription and state clear understanding. He will follow up with [facility] post op clinic in 2-3 weeks. Relevant Imaging/Procedures Performed: CT Abdomen - [facility] (10/27/2021) Impression 1. Peripancreatic inflammation compatible with acute pancreatitis 2. Mild intra and extrahepatic biliary ductal dilatation with extrahepatic bile duct measuring up to 1.1 cm in caliber. No choledocholithiasis or pancreatic head mass. MRCP w/o Contrast: 10/27/2021: IMPRESSION 1. Choledocholithiasis with numerous small calculi in the mid to distal common bile duct. Mild intra and extrahepatic biliary ductal dilation. 2. Findings consistent with pancreatitis. 3. Cholelithiasis with distended gallbladder, but no other findings of acute cholecystitis. 4. Left lower pole exophytic renal lesion, fluid density on CT, likely proteinaceous cysts. Simple cyst in the left upper pole. Results Pending at Discharge: Test results still pending from this admission Procedure Component Value Units Date/Time Bacterial Culture, Blood [[id number]] Collected: 10/28/21901 Lab Status: In process Specimen: Blood, Venous Updated: 10/28/21947 Bacterial Culture, Blood [[id number]] Collected: 10/28/21900 Lab Status: In process Specimen: Blood, Venous Updated: 10/28/21947 Physical Exam: Gen: NAD, AAO Head: NCAT ENT: Moist mucous membranes Neck: Ranging cervical spine spontaneously Pulm: CTAB, no w/r/r CV: RRR Abd: NABS, appropriate incisional TTP, ND, soft Extremities: WWP, No LE Edema, No deformities; moving all extremities spontaneously Skin: No overt rashes on exposed skin Wounds/incision: C/D/I, dermabond overlaying incisions, some mild ecchymosis surrounding port sites. Neuro: Mentating appropriately; speech is fluent; facial musculature is symmetrical Psych: Appropriate mood and affect Follow-up appointments and procedures Follow-up Please make an appointment with your primary care physician in 1 week(s). Call your physician immediately if you have any fevers greater than 100, drainage from your wound that is not clear or looks infected, persistent bleeding, increasing abdominal pain, problems urinating, or persistent nausea/vomiting. You should be aware that you may have right shoulder pain after surgery and that this will progressively go away. This is called 'referred pain' and is from the area of the gallbladder. It can also be caused by gas that may be trapped under the diaphragm from the surgery, especially if it was performed laparoscopically through mini-incisions. This gas will progressively get reabsorbed by your body. Our clinic nurse will call you in the next 3-4 days to see how you are doing at home and to schedule an outpatient post operative clinic appointment. If you have any questions or concerns, please call our clinic at [phone] . We have someone available 24 hours a day. We have held your blood pressure medicine, Chlorthalidone, as you had normal blood pressure while in the hospital. Please discuss when and how you should resume this medication with your primary caredoctor as soon as possible. We are also restarting your home Diabetes medicine, Januvia. Please make sure to check your blood glucose levels regularly and discuss any medication adjustments with your primary care doctor via phone. It would be a good idea to call them this afternoon vs tomorrow. Authorizing Provider: Shelby Dos Santos PA-C Quality Discharge Instructions We are currently collecting quality data on patients having surgery. You may receive a phone call, email, and/or letter about your surgery asking you a series of follow up questions to evaluate specifics aspects of your care. Thank you for your participation. Authorizing Provider: Shelby Dos Santos PA-C Amb Consult/Follow Up Primary Care Physician Outside of Network Scheduling Comments (optional - describe specific scheduling needs if applicable): 7-10 days Reason for Request: s/p lap amauri for gallstone pancreatitis needs med rec(BP meds held at discharge), pain control discussion, coordination of care Authorizing Provider: Shelby Dos Santos PA-C Amb Consult/Follow Up Acute Care Surgery/Trauma/Burn Scheduling Comments (optional - describe specific scheduling needs if applicable): 2-3 weeks [facility] post op clinic Reason for Request: s/p lap amauri with subhash for gallstone pancreatitis Authorizing Provider: Shelby Dos Santos PA-C I personally spent < 30 minutes reviewing the chart, evaluating and examining the patient, counseling and preparing the patient for discharge, and coordinating follow up. Shelby Dos Santos PA-C 11/04/2021 11:40 documented in this encounter Medications at Time of Discharge Medication Sig Dispensed Refills Start Date End Date acetaminophen (TYLENOL) 500 mg tablet Take 1 Tablet by mouth every 6 hours as needed for Pain or Fever. 11/04/2021 acetylcysteine (NAC) 600 mg capsule Take 1,200 mg by mouth 2 times daily. busPIRone (BUSPAR) 10 mg tablet Take 10 mg by mouth 3 times daily. diclofenac sodium gel Apply topically. 05/10/2020 empagliflozin (JARDIANCE) 10 mg tablet Take 1 Tablet by mouth daily. magnesium oxide (MAG-OX) 400 mg (241.3 mg magnesium) tablet Take 400 mg by mouth daily. ONE TOUCH DELICA 33 gauge misc TEST TWICE DAILY 10/17/2021 ONETOUCH VERIO TEST STRIPS test strips TEST TWICE DAILY 10/17/2021 triamcinolone (KENALOG) 0.1 % cream APPLY SMALL AMOUNT TOPICALLY TO THE AFFECTED AREA TWICE DAILY NEEDED 09/09/2021 acamprosate calcium (ACAMPROSATE ORAL) Take 333 mg by mouth 2 times daily. 11/06/2021 fluticasone-salmeterol (ADVAIR) 250-50 mcg/dose diskus inhaler Inhale 1 Puff as directed 2 times daily. 11/29/2021 folic acid (FOLVITE) 1 mg tablet Take 1 mg by mouth. 05/13/2020 11/30/19 lamoTRIgine (LAMICTAL) 100 mg tablet Take 1 Tablet by mouth daily for 28 days. 28 Tablet 11/04/2021 12/02/2021 methocarbamoL (ROBAXIN) 500 mg tablet Take 500 mg by mouth 3 times daily. 11/29/2021 oxyCODONE (ROXICODONE) 5 mg immediate release tablet Take 1-2 Tablets by mouth every 6 hours as needed for up to 8 doses for Pain. Daily Max: 40 mg 8 Tablet 11/04/2021 11/29/2021 pantoprazole (PROTONIX) 40 mg tablet Take 1 Tablet by mouth daily before breakfast for 28 days. 28 Tablet 11/04/2021 12/02/2021 polyethylene glycol 3350 (MIRALAX) 17 gram packet Take 17 g by mouth daily as needed for Other (constipation). 11/04/2021 11/29/2021 sertraline (ZOLOFT) 50 mg tablet Take 100 mg by mouth daily. 11/29/2021 traZODone (DESYREL) 50 mg tablet Take 100 mg by mouth daily. Take one to two before bed. 11/29/2021 documented as of this encounter Ordered Prescriptions Prescription Sig Dispensed Refills Start Date End Da te acetaminophen (TYLENOL) 500 mg tablet Take 1 Tablet by mouth every 6 hours as needed for Pain or Fever. 11/04/2021 polyethylene glycol 3350 (MIRALAX) 17 gram packet Take 17 g by mouth daily as needed for Other (constipation). 11/04/2021 11/29/2021 oxyCODONE (ROXICODONE) 5 mg immediate release tablet Take 1-2 Tablets by mouth every 6 hours as needed for up to 8 doses for Pain. Daily Max: 40 mg 8 Tablet 11/04/2021 11/29/2021 pantoprazole (PROTONIX) 40 mg tablet Take 1 Tablet by mouth daily before breakfast for 28 days. 28 Tablet 11/04/2021 12/02/2021 lamoTRIgine (LAMICTAL) 100 mg tablet Take 1 Tablet by mouth daily for 28 days. 28 Tablet 11/04/2021 12/02/2021 documented in this encounter Discharge Disposition Disposition Code Departure Means Destination Home or Self Snf documented in this encounter Progress Notes * Madeleine Nuñez - 11/04/2021 1134 EDT Received call from [facility]. Ride delayed to 3:15 PM. Virginia Nuñez RN CCM [id number] ADDENDUM Cortext from direct care RN that she cannot print AVS. Contacted team. Documentation is corrected and AVS can be printed. Called to [facility] and spoke with Daksha who will let direct care RN know. Yasmani's discharge transportation will be picking him up from [facility] Lobby at 3:15 PM. Virginia Nuñez RN [facility] * Madeleine Nuñez - 11/04/2021 1035 EDT CM Discharge Note DISCHARGE DATE/TIME: 11/04/21 DESTINATION: Home Transportation: 11:30 AM [facility] - please assist patient to be in main lobby to meet ride (allow time for pharmacy if needed) TEACHING AIDE/CHARGE/MD NOTIFIED (Y/N): Yes Home Health: NA DME: NA Prescriptions: [facility] Pharmacy for discharge or patient preference. Patient and/or family who participated in discharge plan: Patient Virginia Nuñez RN CCM [id number] * Ismael Vasquez MD - 11/04/2021 0408 EDT SURGERY POST-OP CHECK SUBJECTIVE: Patient was initially sleeping comfortably when I came by to evaluate him. States his abdomen is feeling a little sore, but overall the pain is manageable. Tolerating a regular diet well,no associated nausea or vomiting. No other complaints. OBJECTIVE: VS: Blood pressure 107/62, pulse 50, temperature 36 ??C (96.8 ??F), temperature source Tympanic, resp. rate 19, height 165.1 cm (65), weight 99.8 kg (220 lb 0.3 oz), SpO2 98 %. I/O: Current Shift 11/030 - 11/04 0659 In: 700 [P.O.:200; I.V.:500] Out: - Gen: NAD, alert and oriented x3, conversing fluently and responding appropriately Pulm: anterior lung martinez CTAB CV: RRR, radial pulses 2+ bilaterally. Abd: Soft, appropriately tender to palpation, non-distended, non-tympanitic Ext: WWP, no LE edema Incision/Dressing: incision sites clean, dry, without associated fluctuance or drainage. ASSESSMENT/PLAN: 51 y.o. male POD#0 s/p laparoscopic cholecystectomy. Recovering as expected. Continue care as written. - Plan for discharge later this AM, patient uses a community ride service that will need to be reached out to to organize his ride in the AM. Ismael Vasquez MD 11/04/2021 4:08 * Sandee Dahl MD - 11/03/2021 0718 EDT [facility] PROGRESS NOTE Consult reason: Gallstone pancreatitis Subjective: Patient is seen sitting in the recliner talking on the phone. Says he is doing well, was able to eat without nausea, vomiting but has not eaten since 2200 last night. Says abdominal pain is much improved, only thing bothering him is the pain from his rib fractures. Denies fevers, chills, CP, SOB, extremity pain. Objective: BP 120/77 (BP Cuff Location: Right arm, BP Patient Position: Semi fowlers) Pulse 50 Temp 37 ??C(98.6 ??F) (Tympanic) Resp 16 Ht 165.1 cm (65) Wt 99.8 kg (220 lb) SpO2 97% BMI 36.61 kg/m?? I&O By Type - 3 Shifts Including Current In: 120 [P.O.:120] Out: 950 [Urine:950] Gen: Adult male in NAD HEENT: Atraumatic, normocephalic, no scleral icterus Cardiac: Normal S1 S2, no rubs, murmurs or gallops Pulmonary: Clear bilaterally in anterior martinez, no increased work of breathing Abdominal: soft, non-tender to palpation, negative murphys Extremities: WWP, no pedal edema Skin: warm, dry, no rashes Assessment/Plan: Yasmani Weiner is a 51 yo male with a past medical history significant for compensated cirrhosis and previous acute pancreatitis who is admitted for gallstone pancreatitis and is s/p ERCP on 10/30/21. Pending OR availability will take patient to the OR today. - OR today for cholecystectomy pending availability - NPO Bereket Braden 11/03/21 07:21 Pager #[phone] [facility] Pager #[phone] ADDENDUM I have seen and examined this patient with the medical student. I have overseen the medical decision making process and agree with the above. Sandee Dahl MD 11/03/2021 9:22 General Surgery PGY-5 Pager [phone] Associated attestation - Adrien Chapman MD - 11/03/2021 1121 EDT Attestation: I performed or was present during the [place]ap[place] or critical portions of the visit and participated in the management of the patient on 11/03/2021. I agree with the findings and plan of care documented in the resident's/BEN's note. OR today for laparoscopic cholecystectomy. Adrien Chapman MD Acute Care Surgery Pager: [phone] * Juan Parks MD - 11/03/2021 0549 EDT Medicine Progress Note Service Date: 11/03/2021 Admit Date: 10/27/2021 8:49 Reason for Admission: 51 y.o. male admitted with a chief complaint of upper abdominal pain. and nowwith a principal diagnosis of acute pancreatitis due to choledocholithiasis 24 Hour Events: - No acute events overnight Subjective/Objective Subjective Shiva is feeling well, ready for his surgery planned for today. No new issues, some occasional abdominal pain that is able to be managed with tylenol. Review of Systems A ten point review of systems was performed and was negative except for pertinent positives noted in the HPI Objective Vital Signs Patient Vitals for the past 24 hrs: BP Temp Temp src Pulse Resp SpO2 11/03/21 0428 120/77 37 ??C (98.6 ??F) Tympanic -- 16 97 % 11/02/21 2103 122/73 35.9 ??C (96.6 ??F) Tympanic 50 17 97 % 11/02/21 1345 140/80 36.9 ??C (98.4 ??F) Tympanic -- 16 97 % Physical Exam GENERAL: Alert and oriented. Well appearing, sitting up in bed. HEENT: Normocephalic, mildly icteric sclerae, Oropharynx clear. CHEST: Chest wall is nontender. HEART: Regular rate and rhythm without murmurs. LUNGS: Clear to auscultation bilaterally, slightly decreased breath sounds. ABDOMEN: Soft, nondistended, Nontender on palpation but states that he notices when you press. SKIN: No visible lesions NEUROLOGIC: Moves all extremities spontaneously Is PICC or central line present? No, PICC/Central line not present. Medications Reviewed. Labs Reviewed. Imaging Reviewed. Cardio Reviewed. Micro Reviewed. Assessment/Plan Assessment Yasmani Weiner is a 51 y.o. male with a PMHx significant for alcohol use disorder with alcoholic pancreatitis, cirrhosis due to MITCHELL vs alcohol use, diabetes, and hypertension who presented withupper upper abdominal pain now with a principle diagnosis of acute pancreatitis secondary to choledocholithiasis. Plan for cholecystectomy today with [facility] (could not get it yesterday due to OR availability) and transfer to surgery service. Plan Acute Pancreatitis likely secondary to Choledocholithiasis Fever Pain, lipase >47651 and imaging confirm acute pancreatitis. ERCP resulted in the removal of two bilirubin stones. Tolerating diet without difficulty and ambulating. Plan for OR today with [facility]. - OR with [facility] Chronic Problems Diabetes On LITIGATION CLAIM REPRESENTATIVE Jardiance. Resume on discharge. - SSI and POCT with meals and at bedtime ?? Hypertension Holding LITIGATION CLAIM REPRESENTATIVE chlorthalidone. Alcohol Use Disorder -Hold LITIGATION CLAIM REPRESENTATIVE acamprosate 666 mg TID while admitted, can resume on discharge ?? Depression -Hold LITIGATION CLAIM REPRESENTATIVE Lamotrigine 100 mg BID in the recent pancreatitis, can be resumed by PCP -Resume LITIGATION CLAIM REPRESENTATIVE Buspar 10 mg TID and Sertraline 100 mg daily ?? VTE Prophylaxis Holding in preparation for OR procedure Discharge Plan Discharge plan per [facility]. Patient reports he has a ride using the [employer] ([employer]) please call [phone] when ready to discharge Consults GI and ACS Pau Lozano DO Internal Medicine, PGY-1 Pager [phone]/[phone] 11/03/21 5:49 Attending attestation: I have seen and examined the patient and agree with findings and plans as outlined in the resident's note above. Juan Parks MD * Sandee Dahl MD - 11/02/2021 0701 EDT [facility] PROGRESS NOTE Consult reason: Gallstone pancreatitis Subjective: Patient is feeling well. When he eats, he has no abdominal pain. Overall pain is improving. Denies nausea, vomiting, fevers, chills. Objective: BP 111/72 (BP Cuff Location: Right arm, BP Patient Position: Semi fowlers) Pulse 52 Temp 36.5 ??C (97.7 ??F) (Tympanic) Resp 16 Ht 165.1 cm (65) Wt 99.8 kg (220 lb) SpO2 98% BMI 36.61 kg/m?? No intake/output data recorded. EXAM NAD Non labored breathing Abdomen non distended, minimally tender in the RUQ, negative Dahl's WWP A/P: Yasmani Weiner is a 51 yo male with a past medical history significant for compensated cirrhosis and previous acute pancreatitis who is admitted for gallstone pancreatitis and is s/p ERCP on 10/30/21. Pending OR availability will take patient to the OR Thursday. - Patient delayed until Thursday11/03/21 - Appreciate patience with OR availability - We continue to recommend cholecystectomy prior to discharge - Plan communicated to primary team Sandee Dahl MD 11/02/2021 7:12 General Surgery PGY-5 Pager [phone] * Juan Parks MD - 11/02/2021 0642 EDT Medicine Progress Note Service Date: 11/02/2021 Admit Date: 10/27/2021 8:49 Reason for Admission: 51 y.o. male admitted with a chief complaint of upper abdominal pain. and nowwith a principal diagnosis of acute pancreatitis due to choledocholithiasis 24 Hour Events: - No acute events overnight Subjective/Objective Subjective Shiva was seen this morning. He had been informed by surgery that he will not be able to go to the ORtoday but are planning for tomorrow. He is otherwise doing well, without complaint and tolerating his diet without issues. Review of Systems A ten point review of systems was performed and was negative except for pertinent positives noted in the HPI Objective Vital Signs Patient Vitals for the past 24 hrs: BP Temp Temp src Resp SpO2 11/01/217 111/72 36.5 ??C (97.7 ??F) Tympanic 16 98 % 11/01/21 1327 129/70 36.4 ??C (97.5 ??F) Tympanic -- 96 % Physical Exam GENERAL: Alert and oriented. Well appearing, sitting up in bed. HEENT: Normocephalic, mildly icteric sclerae, Oropharynx clear. CHEST: Chest wall is nontender. HEART: Regular rate and rhythm without murmurs. LUNGS: Clear to auscultation bilaterally, slightly decreased breath sounds. ABDOMEN: Soft, nondistended, Nontender on palpation but states that he notices when you press. SKIN: No visible lesions NEUROLOGIC: Moves all extremities spontaneously Is PICC or central line present? No, PICC/Central line not present. Medications Reviewed. Labs Reviewed. Imaging Reviewed. Cardio Reviewed. Micro Reviewed. Assessment/Plan Assessment Yasmani Weiner is a 51 y.o. male with a PMHx significant for alcohol use disorder with alcoholic pancreatitis, cirrhosis due to MITCHELL vs alcohol use, diabetes, and hypertension who presented withupper upper abdominal pain now with a principle diagnosis of acute pancreatitis secondary to choledocholithiasis. Plan for cholecystectomy today with ACS (could not get it yesterday due to OR availability) and transfer to surgery service. Plan Acute Pancreatitis likely secondary to Choledocholithiasis Fever Pain, lipase >17683 and imaging confirm acute pancreatitis. ERCP resulted in the removal of two bilirubin stones. Tolerating diet without difficulty and ambulating. Plan for OR tomorrow with ACS. - OR with ACS Chronic Problems Diabetes On LITIGATION CLAIM REPRESENTATIVE Jardiance. Resume on discharge. - SSI and POCT with meals and at bedtime ?? Hypertension Holding LITIGATION CLAIM REPRESENTATIVE chlorthalidone. Alcohol Use Disorder -Hold LITIGATION CLAIM REPRESENTATIVE acamprosate 666 mg TID while admitted, can resume on discharge ?? Depression -Hold LITIGATION CLAIM REPRESENTATIVE Lamotrigine 100 mg BID in the recent pancreatitis, can be resumed by PCP -Resume LITIGATION CLAIM REPRESENTATIVE Buspar 10 mg TID and Sertraline 100 mg daily ?? VTE Prophylaxis Heparin 5000 units three times daily, held at midnight prior to procedure. Discharge Plan Discharge plan per ACS Consults GI and ACS Pau Lozano DO Internal Medicine, PGY-1 Pager [phone]/[phone] 11/02/21 12:31 Attending attestation: I have seen and examined the patient and agree with findings and plans as outlined in the resident's note above. Doing well, pancreatitis resolved, ready for surgery when OR available Juan Parks MD * Cinthia Garcia RN - 11/01/2021 2246 EDT Patient requested to not be disturbed throughout the night. * May Wolfe RN - 11/01/2021 1526 EDT CASE MANAGEMENT UPDATE: Provided check-in with patient at bedside this morning. Currently NPO; pending OR procedure with ACS. No CM needs at this time. Will continue to follow and assist with coordination of disposition plan dependent on clinical course/ care team recommendations. May Wolfe RN [facility] Pg [phone] * Juan Parks MD - 11/01/2021 0918 EDT Medicine Progress Note Service Date: 11/01/2021 Admit Date: 10/27/2021 8:49 Reason for Admission: 51 y.o. male admitted with a chief complaint of upper abdominal pain. and nowwith a principal diagnosis of acute pancreatitis due to choledocholithiasis 24 Hour Events: - No acute events overnight Subjective/Objective Subjective Mr. Weiner states that he is feeling well and has questions about surgery today. He states that he was able to eat yesterday without pain and walk around without difficulty. He states that he try to coordinate a ride for after his procedure and would like to speak with the surgery team to help him coordinate this as he already has a plan but needs to know what his procedure may be done. Denies shortness of breath, chest pain, fever, night sweats, chills, nausea, vomiting, anorexia, headache, dysuria, or new rashes. Review of Systems A ten point review of systems was performed and was negative except for pertinent positives noted in the HPI Objective Vital Signs Patient Vitals for the past 24 hrs: BP Temp Temp src Resp SpO2 11/01/21 0543 129/84 36.2 ??C (97.2 ??F) Tympanic 14 98 % 10/31/21 2101 120/72 36.6 ??C (97.9 ??F) Tympanic 14 98 % 10/31/21 1443 125/82 36.7 ??C (98.1 ??F) Tympanic 16 98 % Physical Exam GENERAL: Alert and oriented. Well appearing, sitting up in bed. HEENT: Normocephalic, mildly icteric sclerae, Oropharynx clear. CHEST: Chest wall is nontender. HEART: Regular rate and rhythm without murmurs. LUNGS: Clear to auscultation bilaterally, slightly decreased breath sounds. ABDOMEN: Soft, nondistended, Nontender on palpation but states that he notices when you press. SKIN: No visible lesions NEUROLOGIC: Moves all extremities spontaneously Is PICC or central line present? No, PICC/Central line not present. Medications Reviewed. Labs Reviewed. Imaging Reviewed. FL ERCP BILIARY SYSTEM Result Date: 10/30/2021 Findings/impression: Images show cannulation of the common bile duct with injection of contrast norma balloon sweep. For full details, please see the procedural report. MR CHOLANGIOPANCREATOGRAM WO CONTRAST Result Date: 10/28/2021 1. Choledocholithiasis with several small calculi in the mid to distal common bile duct. Mild intraand extrahepatic biliary ductal dilation. 2. Findings consistent with pancreatitis. 3. Cholelithiasis with distended gallbladder, but no other findings of acute cholecystitis. 4. Left lower pole exophytic renal lesion, fluid density on CT, likely proteinaceous cysts. Simple cyst in the left upper pole. I have personally reviewed the images and the above interpretation and agree with the findings. Cardio Reviewed. Micro Reviewed. Assessment/Plan Assessment Yasmani Weiner is a 51 y.o. male with a PMHx significant for alcohol use disorder with alcoholic pancreatitis, cirrhosis due to MITCHELL vs alcohol use, diabetes, and hypertension who presented withupper upper abdominal pain now with a principle diagnosis of acute pancreatitis secondary to choledocholithiasis. Plan for cholecystectomy today with ACS and transfer to surgery service. Plan Acute Pancreatitis likely secondary to Choledocholithiasis Fever Pain, lipase >99279 and imaging confirm acute pancreatitis. ERCP resulted in the removal of two bilirubin stones. Tolerating diet without difficulty and ambulating. Plan for OR today with ACS. - OR with ACS Chronic Problems Diabetes On LITIGATION CLAIM REPRESENTATIVE Jardiance. Resume on discharge. - SSI and POCT with meals and at bedtime ?? Hypertension On LITIGATION CLAIM REPRESENTATIVE chlorthalidone. Can we started by PCP. -Hold LITIGATION CLAIM REPRESENTATIVE meds, BP has been stable Alcohol Use Disorder -Hold LITIGATION CLAIM REPRESENTATIVE acamprosate 666 mg TID while admitted, can resume on discharge ?? Depression -Hold LITIGATION CLAIM REPRESENTATIVE Lamotrigine 100 mg BID in the recent pancreatitis, can be resumed by PCP -Resume LITIGATION CLAIM REPRESENTATIVE Buspar 10 mg TID and Sertraline 100 mg daily ?? VTE Prophylaxis Heparin 5000 units three times daily, held at midnight prior to procedure. Discharge Plan Discharge plan per ACS Consults GI and ACS RICK LIU MD Attending attestation: I have seen and examined the patient and agree with findings and plans as outlined in the resident's note above. Juan Parks MD * Juan Parks MD - 10/31/2021 0655 EDT Medicine Progress Note Service Date: 10/31/2021 Admit Date: 10/27/2021 8:49 Reason for Admission: 51 y.o. male admitted with a chief complaint of upper abdominal pain. and nowwith a principal diagnosis of acute pancreatitis due to choledocholithiasis 24 Hour Events: s/p ERCP Subjective/Objective Subjective Shiva is feeling well this morning, tolerated clear diet after the ERCP and his pain is significantlyimproved. He was excited to eat breakfast. He was eagerly anticipating learning when he would be going for surgery. Review of Systems A ten point review of systems was performed and was negative except for pertinent positives noted in the HPI Objective Vital Signs Patient Vitals for the past 24 hrs: BP Temp Temp src Pulse Resp SpO2 Height Weight 10/31/21 0606 109/69 36.3 ??C (97.3 ??F) Tympanic 52 14 97 % -- -- 10/30/21 2115 106/77 36.7 ??C (98 ??F) Tympanic -- 14 98 % -- -- 10/30/21 1518 123/76 36.1 ??C (96.9 ??F) Tympanic -- 16 96 % -- -- 10/30/21 1417 116/83 -- -- -- 21 97 % -- -- 10/30/21 1403 116/84 36.5 ??C (97.7 ??F) Temporal -- 17 99 % -- -- 10/30/21 1230 113/77 36.8 ??C (98.2 ??F) Tympanic -- 16 99 % 165.1 cm (65) 99.8 kg (220 lb) 10/30/21 1135 108/59 36 ??C (96.8 ??F) Tympanic (!) 44 -- 96 % -- -- Physical Exam GENERAL: Alert and oriented. Well appearing, laying in bed, and able to answer all questions appropriately. HEENT: Normocephalic, mildly icteric sclerae, Oropharynx clear. CHEST: Chest wall is nontender. HEART: Regular rate and rhythm without murmurs. LUNGS: Clear to auscultation bilaterally, slightly decreased breath sounds. ABDOMEN: Pain elicited in the upper quadrants and gallbladder without guarding. Soft lower quadrants with mild pain elicited on light palpation SKIN: diffuse yellowing of skin. NEUROLOGIC: Cranial nerves II-XII intact without motor/sensory deficit Is PICC or central line present? No, PICC/Central line not present. Medications Reviewed: See below for changes. Labs Reviewed: Recent Labs 10/30/21 0708 WBC 6.54 RBC 4.37 HGB 11.6* HCT 36.3* MCV 83 MCH 26.5* MCHC 32.0* PLT 339 Recent Labs 10/30/21 0708 NA 140 K 3.7 CL 104 CO2 25 BUN 9* CREATININE 0.40* CALCIUM 7.9* LABALBU 3.1* Recent Labs 10/29/21 0703 PROTIME 14.9* INR 1.3* Recent Labs 10/30/21 0708 TBIL 1.2 ALKPHOS 155* AST 28 ALT 40 Imaging ERCP The balloon was inflated to 9 mm and the bile duct swept multiple times to remove 2 bilirubin stones. An occlusion cholangiogram was performed which showed no residual filling defects or abnormalities. The duodenoscope was removed and the stomach decompressed upon withdrawal. Assessment/Plan Assessment Yasmani Weiner is a 51 y.o. male with a PMHx significant for alcohol use disorder with alcoholic pancreatitis, cirrhosis due to MITCHELL vs alcohol use, diabetes, and hypertension who presented withupper upper abdominal pain now with a principle diagnosis of acute pancreatitis secondary to choledocholithiasis. Now awaiting cholecystectomy. Plan Acute Pancreatitis likely secondary to Choledocholithiasis Fever Pain, lipase >23573 and imaging confirm acute pancreatitis ERCP resulted in the removal of two bilirubin stones, - ACS consulted regarding inpatient cholecystectomy, will follow up recommendations - GI consulted and following, appreciate the recs. - Carb consistent diet - d/c dilaudid 1 mg q4h PRN - discontinue antibiotics (ceftriaxone and metronidazole) received 4 days total ?? Chronic Problems Diabetes On LITIGATION CLAIM REPRESENTATIVE Jardiance - SSI and POCT with meals and at bedtime will add long acting insulin should glucose rise while eating Sinus Bradycardia asymptomatic, occurred while sleeping - discontinue telemetry. ?? Hypertension On LITIGATION CLAIM REPRESENTATIVE chlorthalidone -Hold LITIGATION CLAIM REPRESENTATIVE meds, BP has been stable Alcohol Use Disorder -Hold LITIGATION CLAIM REPRESENTATIVE acamprosate 666 mg TID while admitted ?? Depression, ?Bipolar -Hold LITIGATION CLAIM REPRESENTATIVE Lamotrigine 100 mg BID in the recent pancre - Resume LITIGATION CLAIM REPRESENTATIVE Buspar 10 mg TID and Sertraline 100 mg daily ?? VTE Prophylaxis Ambulate Discharge Plan Home or with self Care Consults GI and Surgery Patricio Nguyen 10/31/2021 6:55 I was present with the medical student for the history, exam, and medical decision making documented. I have edited the medical student note as appropriate. Pau Lozano DO 10/31/2021 6:55 Attending attestation: I have seen and examined the patient and agree with findings and plans as outlined in the resident's note above. Doing well. Plan to DC home unless surgery can accommodate lap amauri in 1-2 days. Juan Parks MD * Adonis Araya RN - 10/31/2021 0521 EDT Data: Assumed care at 2330. A&Ox3 c/o 6/10 abd pain overnight. Tolerating clear liquids with non/v. Action: Hourly rounding. Medications per MAR. Review - labs, orders, notes. Cluster care to promotea restful environment. Response: Pt currently sleeping. Will ctm for changes and adjust interventions as needed. ADONIS ARAYA RN 10/31/2021 5:21 * Samson Oliveira MD - 10/30/2021 1400 EDT Procedure Performed EGD/ ERCP Indications for Exam-EGD reported melena, history of cirrhosis EGD Findings Esophagus: normal.No varices Stomach: mild portal hypertensive gastropathy. No gastric varices Duodenum: normal ERCP Indication Choledocholithiasis/gallstone pancreatitis ERCP Findings Using a RX49 [employer] sphincterotome and a 0.035 inch wire, the common bile duct was cannulated with the wire after 1 attempts. Deep cannulation with the sphincterotome was then achieved norma cholangiogram was performed and interpreted in real time showing distal CBD filling defects. A sphincterotomy was performed using Endocut settings on the ERBE processor. The sphincterotome was exchanged for a 9-12mm BS extraction balloon. The balloon was inflated to 9 mm and the bile duct swept multiple times to remove 2 bilirubin stones. An occlusion cholangiogram was performed which showed noresidual filling defects or abnormalities. The duodenoscope was removed and the stomach decompressed upon withdrawal. ERCP Data Summary: Estimated time to cannulation: 1 min Precut sphincterotomy: n Prior MRCP: y Prior EUS: n TBili prior to ERCP: 1.2 CBD diameter: 8mm Prior sphincterotomy: n Prior cholecystectomy: n Pancreatic duct cannulated: n Contrast injected into main pancreatic duct: n Double wire technique: n Long position: n Pancreatic Stent Placement: n Rectal indomethacin: y Sujey-ampullary diverticulum: n Procedure Diagnosis Choledocholithiasis with sphincterotomy and stones removal. Recommendations - Monitor for post ERCP complications (pancreatitis, infection, bleeding etc) - Hold anticoagulation for 24 hours - If patient feels well, he may have clears today. If continues to feel well, advance as tolerated in AM - Daily LFTs including T.bili - Surgery consult if not already done for cholecystectomy. -Repeat EGD in 3 years for variceal screening SAMSON OLIVEIRA MD Gastroenterology & Hepatology Fellow 10/30/2021 14:06 * Juan Parks MD - 10/30/2021 0649 EDT Medicine Progress Note Service Date: 10/30/2021 Admit Date: 10/27/2021 8:49 Reason for Admission: 51 y.o. male admitted with a chief complaint of upper abdominal pain. and nowwith a principal diagnosis of acute pancreatitis due to choledocholithiasis 24 Hour Events: Received IVF total 500 cc for soft pressures Subjective/Objective Subjective Pt reports feeling sweaty overnight with chills. He reports no symptoms from overnight bradycardia (lightheadness, dizziness) and tolerated the clear liquid diet without nausea or vomiting. Pt reports being excited for his procedure today and voices understanding of treatment plan. Review of Systems A ten point review of systems was performed and was negative except for pertinent positives noted in the HPI Objective Vital Signs Patient Vitals for the past 24 hrs: BP Temp Temp src Pulse Resp SpO2 10/30/21 0402 109/64 36.3 ??C (97.3 ??F) Tympanic (!) 43 16 98 % 10/30/21 0054 93/64 -- -- (!) 48 -- -- 10/29/212002 96/55 36.5 ??C (97.7 ??F) Tympanic -- 16 96 % 10/29/21 1418 108/69 36.4 ??C (97.5 ??F) Tympanic -- 15 98 % 10/29/21 0825 121/72 36.5 ??C (97.7 ??F) Tympanic -- 16 95 % Physical Exam GENERAL: Alert and oriented. Well appearing, laying in bed, and able to answer all questions appropriately. HEENT: Normocephalic, mildly icteric sclerae, Oropharynx clear. CHEST: Chest wall is nontender. HEART: Regular rate and rhythm without murmurs. LUNGS: Clear to auscultation bilaterally, slightly decreased breath sounds. ABDOMEN: Pain elicited in the upper quadrants and gallbladder without guarding. Soft lower quadrants with mild pain elicited on light palpation SKIN: diffuse yellowing of skin. NEUROLOGIC: Cranial nerves II-XII intact without motor/sensory deficit Is PICC or central line present? No, PICC/Central line not present. Medications Reviewed: See below for changes. Labs Reviewed: Recent Labs 10/30/21 0708 WBC 6.54 RBC 4.37 HGB 11.6* HCT 36.3* MCV 83 MCH 26.5* MCHC 32.0* PLT 339 Recent Labs 10/30/21 0708 NA 140 K 3.7 CL 104 CO2 25 BUN 9* CREATININE 0.40* CALCIUM 7.9* LABALBU 3.1* Recent Labs 10/29/21 0703 PROTIME 14.9* INR 1.3* Recent Labs 10/30/21 0708 TBIL 1.2 ALKPHOS 155* AST 28 ALT 40 Imaging No new imaging Assessment/Plan Assessment Yasmani Weiner is a 51 y.o. male with a PMHx significant for alcohol use disorder with alcoholic pancreatitis, cirrhosis due to MITCHELL vs alcohol use, diabetes, and hypertension who presented withupper upper abdominal pain now with a principle diagnosis of acute pancreatitis secondary to choledocholithiasis. Plan Acute Pancreatitis likely secondary to Choledocholithiasis Fever Pain, lipase >64841 and imaging confirm acute pancreatitis MRCP imaging is positive for choledocholithiasis making gallstone pancreatitis most likely Fever likely 2/2 pancreatitis - GI consulted and following, appreciate the recs. - Hold Lovenox today, resume tomorrow - ERCP planned today at 2PM - tolerating clears, received IV fluids this morning for lower blood pressures - Pain management with dilaudid 1.0 mg q4h PRN - Mucinex 600 mg BID - Zofran 0.4 mg IV/PO q4h PRN - continue antibiotics ceftriaxone 1 g daily and metronidazole 500 mg q8h received total 4 days thus far - Monitor fever curve and WBCs ?? Chronic Problems Diabetes On LITIGATION CLAIM REPRESENTATIVE Jardiance - SSI and POCT q6h while NPO Sinus Bradycardia asymptomatic, occurred while sleeping - discontinue telemetry. ?? Hypertension On LITIGATION CLAIM REPRESENTATIVE chlorthalidone -Hold LITIGATION CLAIM REPRESENTATIVE meds Alcohol Use Disorder -Hold LITIGATION CLAIM REPRESENTATIVE acamprosate 666 mg TID while admitted ?? Depression, ?Bipolar -Hold LITIGATION CLAIM REPRESENTATIVE Lamotrigine 100 mg BID as this could worsen/cause pancreatitis ?? VTE Prophylaxis Ambulate Discharge Plan Home or with self Care Consults BEN Patricio Wendy 10/30/2021 6:49 I was present with the medical student for the history, exam, and medical decision making documented. I have edited the medical student note as appropriate. Pau Lozano DO 10/30/2021 6:49 Attending attestation: I have seen and examined the patient and agree with findings and plans as outlined in the resident's note above. ERCP today, consult ACS, home likely tomorrow (unless surgery is possible during current admission). Juan Parks MD * Juan Parks MD - 10/29/2021 0644 EDT Medicine Progress Note Service Date: 10/29/2021 Admit Date: 10/27/2021 8:49 Reason for Admission: 51 y.o. male admitted with a chief complaint of upper abdominal pain. and nowwith a principal diagnosis of acute pancreatitis due to choledocholithiasis 24 Hour Events: No acute overnight events. Subjective/Objective Subjective Pt reports sweating through a gown last night along with chills and 8/10 abdominal pain. He feels hungry but the pain was worse after trying to drink apple juice. He also complains of a cough that restarted that had been absent for three days. His nausea is reported as improved, had a dark brown bowel movement, and is voiding properly. Review of Systems A ten point review of systems was performed and was negative except for pertinent positives noted in the HPI Objective Vital Signs Patient Vitals for the past 24 hrs: BP Temp Temp src Resp SpO2 10/29/21 1418 108/69 36.4 ??C (97.5 ??F) Tympanic 15 98 % 10/29/21 0825 121/72 36.5 ??C (97.7 ??F) Tympanic 16 95 % 10/29/21 0550 137/74 36.6 ??C (97.9 ??F) Tympanic 16 98 % 10/28/21 2356 124/72 36.5 ??C (97.7 ??F) Tympanic 16 97 % 10/28/21 2047 109/69 36.1 ??C (97 ??F) Tympanic 15 95 % 10/28/21 1749 103/64 36.5 ??C (97.7 ??F) Tympanic 15 94 % Physical Exam GENERAL: Alert and oriented. Well appearing, laying in bed, and able to answer all questions appropriately. HEENT: Normocephalic, mildly icteric sclerae, Oropharynx clear. CHEST: Chest wall is nontender. HEART: Regular rate and rhythm without murmurs. LUNGS: Clear to auscultation bilaterally. ABDOMEN: significant for anticipatory guarding in the upper quandrants and pain elicited on palpation of the gallbladder with a positive dahl sign. Soft lower quadrants with mild pain elicited on light palpation SKIN: diffuse yellowing of skin. NEUROLOGIC: Cranial nerves II-XII intact without motor/sensory deficit Is PICC or central line present? No, PICC/Central line not present. Medications Reviewed: See below for changes. Labs Reviewed: Recent Labs 10/29/21 0703 WBC 7.57 RBC 4.39 HGB 11.7* HCT 36.2* MCV 83 MCH 26.7* MCHC 32.3* PLT 304 Recent Labs 10/29/21 0703 NA 139 K 3.3* CL 103 CO2 23 BUN 9* CREATININE 0.40* CALCIUM 8.2* LABALBU 3.1* Recent Labs 10/29/21 0703 PROTIME 14.9* INR 1.3* Recent Labs 10/29/21 0703 TBIL 1.5* ALKPHOS 172* AST 37 ALT 51* Imaging CT Abdomen - [facility] (10/27/2021) Impression 1. Peripancreatic inflammation compatible with acute pancreatitis 2. Mild intra and extrahepatic biliary ductal dilatation with extrahepatic bile duct measuring up to 1.1 cm in caliber. No choledocholithiasis or pancreatic head mass. ??MR CHOLANGIOPANCREATOGRAM WO CONTRAST Result Date: 10/28/2021 1. Choledocholithiasis with several small calculi in the mid to distal common bile duct. Mild intraand extrahepatic biliary ductal dilation. 2. Findings consistent with pancreatitis. 3. Cholelithiasis with distended gallbladder, but no other findings of acute cholecystitis. 4. Left lower pole exophytic renal lesion, fluid density on CT, likely proteinaceous cysts. Simple cyst in the left upper pole. I have personally reviewed the images and the above interpretation and agree with the findings. Assessment/Plan Assessment Yasmani Weiner is a 51 y.o. male with a PMHx significant for alcohol use disorder with alcoholic pancreatitis, cirrhosis MITCHELL vs alcohol use, diabetes, and hypertension presenting with upper upper abdominal pain now with a principle diagnosis of acute pancreatitis likely secondary to choledocholithiasis. Plan Acute Pancreatitis likely secondary to Choledocholithiasis Fever Pain, lipase >82287 and imaging confirm acute pancreatitis MRCP imaging is positive for choledocholithiasis making gallstone pancreatitis most likely Fever likely 2/2 pancreatitis vs cholangitis No concern for cholecystitis. - GI consulted and following, appreciate the recs. - Hold Lovenox tomorrow morning - Clear liquid diet - NPO after midnight for ERCP tomorrow - If not tolerating clears, will restart mIVF - Pain management with dilaudid 1.0 mg q4h PRN - Mucinex 600 mg BID - Zofran 0.4 mg IV/PO q4h PRN - Continue 1g ceftriaxone q24h and metronidazole 500 mg q8h given's patients fever and chills - Monitor fever curve and WBCs ?? Chronic Problems Diabetes On LITIGATION CLAIM REPRESENTATIVE Jardiance - SSI and POCT q6h while NPO ?? Hypertension On LITIGATION CLAIM REPRESENTATIVE chlorthalidone -Hold LITIGATION CLAIM REPRESENTATIVE meds Alcohol Use Disorder -Hold LITIGATION CLAIM REPRESENTATIVE acamprosate 666 mg TID while admitted ?? Depression, ?Bipolar -Hold LITIGATION CLAIM REPRESENTATIVE Lamotrigine 100 mg BID as this could worsen/cause pancreatitis ?? VTE Prophylaxis Ambulate Discharge Plan Home or with self Care Consults BEN Nguyen 10/29/2021 6:44 I was present with the medical student for the history, exam, and medical decision making documented. I have edited the medical student note as appropriate. Pau Lozano DO 10/29/2021 16:03 Attending attestation: I have seen and examined the patient and agree with findings and plans as outlined in the resident's note above. Juan Parks MD * May Wolfe RN - 10/28/2021 1618 EDT Initial Case Management/Social Work Assessment and Discharge Plan/Readmission Risk Assessment REASON FOR ADMISSION: Pancreatitis, gallstone Patient understands reason for admission: Yes PATIENT INFO VERIFIED: PCP: MD Vilma De La Rosa/ [facility] Contact Info: Spouse Amelie [phone] Address: [address] [place], [place] [address] [address] [facility] [address] Type of housing (single family, condo, apartment, usp, single room occupancy, [facility] funded hotel room, group detention) - Private Residence Who does the patient live with? Spouse/ Foster Son Does the patient have access to their own bedroom/bathroom/kitchen - or is it shared with others? Private LIVING ARRANGEMENTS AND ACCESSIBILITY ISSUES: Living Arrangements: Spouse / significant other, Children, Private residence Levels: 1 Stairs to enter: 0 Handicap access: Ramp Bathroom located on bedroom level?: Yes What in home social supports are available to the patient? Family member(s) Is 24/7 care available? NA ADVANCED DIRECTIVES, POA &/or COLST IN PLACE: Healthcare Directive: No, patient does not have advance directive for healthcare treatment Copy in Chart: Yes, previous copy on file @ [facility] Information Provided on Healthcare Directives: No Information on Healthcare Directives Requested: No DIRECTIVES FOR FINANCES: Directive For Finances: No TRANSPORTATION: Transportation: Family, Self Patient expects to be discharged to: Home CULTURAL, CONGREGATION and/or LANGUAGE factors affecting health care/discharge planning: Spiritual/Cultural Requests: None Language/Literacy Needs Do you need us to provide any communication aids or devices?: No Insurance Information: Medical Insurance: Yes Type of insurance: Medicaid Medicaid Type: Community Referred to patient financial services: No Nutrition: Ordered for Clears (NPO for procedure) Low LITIGATION CLAIM REPRESENTATIVE risk assessment for food insecurity DISCHARGE RISK ASSESSMENT: Requires assistance with ADLs/IADLs;History of mental illness;Diagnosis of Diabetes Total # selected above: Score of 2 - 4: This patient is at MODERATE RISK for re-hospitalization Tentative plan to address the risk of re-hospitalization for those at HIGH MODERATE RISK: Bring risk factors to attention of team to be addressed RAPT TOOL: Age: 50-65 Gender: Male Ambulation distance: 1-2 blocks Gait device: Single point device Community Services: Home health, MOW, SASH-none of one time a week Will you live with someone who will care for you?: Yes RAPT Tool Score: 10 Patient expects to be discharged to: Home SBIRT: SASQ (Single Alcohol Screening Question) How many times in the past year have you had 5 or more drinks in a single day?: Never How many times in the past year have you used an illegal drug or used a prescription medication fornon-medical reasons?: Never Intervention in place/initiated?: No, not indicated FUNCTIONAL STATUS: Activities patient requires assistance: None Assistive Devices: Cane, Walker Walker type: Front wheel COMMUNITY RESOURCES/SUPPORTS: Primary Care Provider: Tristan Collins PCP Verified: Yes Specialists: None Type of Home Health Services: None DME Provider: N/a Pharmacy: [id number] - [facility] [address] [facility] [address] [facility] [id number] [facility] ([facility]) - [address] [address] Home Health: N/a Other: N/a POST HOSPITAL TRANSITION PLAN: Patient presented to [facility] (from [facility] 10/27/2021 with c/o abdominal pain, n/v and admitted for treatment of pancreatitis. ERCP pending. PMH/ Depression, alcohol use disorder, alcohol pancreatitis, cirrhosis, HTN, DM No current tobacco, alcohol, or recreational drug use per patient Patient has been vaccinated for Covid-19 including booster with Moderna Has not received Influenza vaccine this season and is amenable to receive at discharge. Patient is A&Ox3 and independent with all A/Iadl's including driving to all appointments/ errands. Uses cane for mobility assist when needed. Does has access to rolling walker. Is not connected with any home health/ community support services. Resides in one level private home with ramp access to enter along with spouse Amelie ([phone])and foster son Rich 15 yo (has been at residence for ~3 years). Patient is unemployed and receives SSDI for last 7-8 years. Discussed Medicaid assistance with transportation through [facility] ([phone]) to future appointmentsif needed. CM will continue to follow and assist with coordination of disposition plan dependent on clinical course/ care team recommendations. Referred to 'Meds to Beds' program; Pharmacy to deliver/ review prescription medications with patient at bedside prior to discharge. CM will assist arrange transport at d/c if needed. Please reach out with any additional questions/ concerns, or acute changes in care plan. /tlvRN pg [phone] MAY WOLFE RN 10/28/2021 16:18 * May Wolfe RN - 10/28/2021 1544 EDT CASE MANAGEMENT UPDATE: Met with patient at bedside to complete [facility] initial assessment; full note to follow. May Wolfe RN [facility] Dept Pg [phone] * Juan Parks MD - 10/28/2021 0701 EDT Medicine Progress Note Service Date: 10/28/2021 Admit Date: 10/27/2021 8:49 Reason for Admission: 51 y.o. male admitted with a chief complaint of upper abdominal pain. and nowwith a principal diagnosis of acute pancreatitis due to choledocholithiasis 24 Hour Events: No acute overnight events. Subjective/Objective Subjective Pt reports not sleeping well due to nausea and worsening abdominal pain. The pain is now controlledto a 3/10 with medications. Pt reports that the pain was the worst he has felt in the three week course of his symptoms. Pt denies vomiting, chest pain, and additional changes in skin. Pt did acknowledge that his skin looked yellow but did not notice any changes in his sclera. Review of Systems A ten point review of systems was performed and was negative except for pertinent positives noted in the HPI Objective Vital Signs Patient Vitals for the past 24 hrs: BP Temp Temp src Pulse Resp SpO2 10/28/21 1055 115/75 36.2 ??C (97.2 ??F) Tympanic -- 17 98 % 10/28/21 1000 -- 36.3 ??C (97.3 ??F) Tympanic -- -- -- 10/28/21 0700 103/70 36.8 ??C (98.2 ??F) Tympanic -- 16 98 % 10/28/21 0551 115/78 37 ??C (98.6 ??F) Tympanic -- 16 95 % 10/28/21 0039 107/63 36.9 ??C (98.4 ??F) Tympanic -- 18 99 % 10/27/21 2106 105/69 37.7 ??C (99.9 ??F) Tympanic -- 18 97 % 10/27/21 1827 95/63 36.6 ??C (97.9 ??F) Tympanic 66 16 97 % 10/27/21 1636 -- -- -- -- 18 96 % 10/27/21 1600 107/67 37 ??C (98.6 ??F) Tympanic -- 18 96 % 10/27/21 1425 90/56 38 ??C (100.4 ??F) Tympanic -- 18 96 % Physical Exam GENERAL: Alert and oriented. Well appearing, laying in bed, and able to answer all questions appropriately. HEENT: Normocephalic, mildly icteric sclerae, Oropharynx clear. CHEST: Chest wall is nontender. HEART: Regular rate and rhythm without murmurs. LUNGS: Clear to auscultation bilaterally. ABDOMEN: significant for anticipatory guarding in the upper quandrants and pain elicited on palpation of the gallbladder with a positive dahl sign. Soft lower quadrants with mild pain elicited on light palpation SKIN: diffuse yellowing of skin. NEUROLOGIC: Cranial nerves II-XII intact without motor/sensory deficit Is PICC or central line present? No, PICC/Central line not present. Medications Reviewed: See below for changes. Labs Reviewed: Recent Labs 10/28/21821 WBC 8.79 RBC 4.40 HGB 11.7* HCT 36.5* MCV 83 MCH 26.6* MCHC 32.1* PLT 275 Recent Labs 10/28/21821 NA 139 K 3.1* CL 101 CO2 28 BUN 14 CREATININE 0.47* CALCIUM 8.2* LABALBU 3.1* Recent Labs 10/28/21 0822 TBIL 2.3* ALKPHOS 203* AST 56* ALT 68* [facility] 10/27/2021 Lipase>91084 Glucose - 213 Bilruvin - 6.4 Alk Phos - 241 AST - 82 ALT - 114 Albumin - 3.[address] Abdomen - [facility] (10/27/2021) Impression 1. Peripancreatic inflammation compatible with acute pancreatitis 2. Mild intra and extrahepatic biliary ductal dilatation with extrahepatic bile duct measuring up to 1.1 cm in caliber. No choledocholithiasis or pancreatic head mass. ??MR CHOLANGIOPANCREATOGRAM WO CONTRAST Result Date: 10/27/2021 1. Choledocholithiasis with numerous small calculi in the mid to distal common bile duct. Mild intra and extrahepatic biliary ductal dilation. 2. Findings consistent with pancreatitis. 3. Cholelithiasis with distended gallbladder, but no other findings of acute cholecystitis. 4. Left lower pole exophytic renal lesion, fluid density on CT, likely proteinaceous cysts. Simple cyst in the left upper pole. Assessment/Plan Assessment Yasmani Weiner is a 51 y.o. male with a PMHx significant for alcohol use disorder with alcoholic pancreatitis, cirrhosis MITCHELL vs alcohol use, diabetes, and hypertension presenting with upper upper abdominal pain now with a principle diagnosis of acute pancreatitis likely secondary to choledocholithiasis. Plan Acute Pancreatitis likely secondary to Choledocholithiasis Fever Pain, lipase >32688 and imaging confirm acute pancreatitis MRCP imaging is positive for choledocholithiasis making gallstone pancreatitis most likely Fever likely 2/2 pancreatitis vs cholangitis No concern for cholecystitis - GI consulted and following, appreciate the recs. - Pain management with dilaudid 1.0 mg q4h PRN - Continuous IVF, 125 cc/hr LR for 2.5 L - Zofran 0,4 mg IV/PO q4h PRN - Continue 1g ceftriaxone q24h and metronidazole 500 mg q8h given's patients fever and chills - Monitor fever curve and WBCs ?? Chronic Problems Diabetes On LITIGATION CLAIM REPRESENTATIVE Jardiance - SSI and POCT q6h while NPO ?? Hypertension On LITIGATION CLAIM REPRESENTATIVE chlorthalidone -Hold LITIGATION CLAIM REPRESENTATIVE meds Alcohol Use Disorder -Hold LITIGATION CLAIM REPRESENTATIVE acamprosate 666 mg TID while admitted ?? Depression, ?Bipolar -Hold LITIGATION CLAIM REPRESENTATIVE Lamotrigine 100 mg BID as this could worsen/cause pancreatitis ?? VTE Prophylaxis Ambulate Discharge Plan Home or with self Care Consults GI Patricio Nguyen 10/28/2021 7:01 I was present with the medical student for the history, exam, and medical decision making documented. I have edited the medical student note as appropriate. Pau Lozano DO 10/28/2021 13:37 Attending attestation: I have seen and examined the patient and agree with findings and plans as outlined in the resident's note above. Choledocholithiasis, GS pancreatitis and fever. Otherwise clinically stable for now and LFT's better today. GI has been consulted for urgent ERCP. Cont empiric antibiotics. uJan Parks MD * Rain Lovell RN - 10/27/2021 2245 EDT Data: Complained of rib, and abdomen pain 9 out of 10. Action: Medicated with dilaudid. Response: Pain now 4 out of 10. RAIN LOVELL RN 10/27/2021 22:45 * Jayce Quintana, RT - 10/27/2021 1913 EDT Respiratory Consult/Progress Note Indications for Respiratory therapy: Respiratory Consult Data Vitals: Heart Rate: 62 BPM, Resp: 16, SpO2: 97 % FIO2/O2 Device: , , O2 Device: None, RT Orders:Symbicort BID PRN Protocol Scoring: Bronchodilator/Inhalation Therapy Frequency Bronchodialator - Clinical Indications: Home regimen Breath Sounds: Any abnormal BS decreased Response: No change / no treatment Pulse: <100 Resp Rate: <18 SOB: None Total Score: 1 Comment:: (S) PRN (Home regimen x1 4 day a week) Frequency Based On Total Score: 0-4 = PRN 5-7 = QID 8-10 = Q4H 11-12 = Q2H Airway Clearance Therapy Frequency Airway Clearance - Clinical Indications: No clinical indications Breath Sounds: Clear / diminished Sputum: Small (tsp) / None Consistency: None Cough Effort: Strong/ non-productive Color: None Total Score: 0 Comment: Not indicated Frequency Based On Total Score: 0-3 = PRN 4-6 = QID and PRN 7-9 = Q4H and PRN 10-11 = Q2H and PRN Hyperinflation Therapy Frequency Hyperinflation - Clinical Indications: No clinical indications Breath Sounds: Clear Surgery: No X-Ray / Atelectasis: No O2 Requirements: O2 at baseline Mobility Status: Mobile / at baseline Total: 0 Comment: No Indication Frequency Based On Total Score: 0-3 = PRN 4-6 = QID and PRN 7-9 = Q4H and PRN 10-12 = Q2H and PRN Action/Events Respiratory events; Patient states his home regimen involves 1 x advair 4 days a weak as needed. Will follow prn regimen. JAYCE QUINTANA, 10/27/21 * Jenifer Landaverde RN - 10/27/2021 1550 EDT Data: Pt admitted from [facility] for Pancreatitis and cholelithiasis. Pts Bps are soft. Providers aware. Pts pain level is 9/10, pain med and not effective. Providers aware Action: Pt oriented to room and call hernandez, MRI ordered and paper worked filled out and faxed, Pt NPO x meds and ice chips, LR @125, Dr adjusted pain medications, pt receiving iv abx. Response: Pt verbalized understanding of why he is here, Pts pain level adequately controlled, willcontinue to monitor JENIFER LANDAVERDE RN 10/27/2021 15:51 * Petra Skelton RN - 10/27/2021 1207 EDT VAT called to assess OSH PIV Data: #20 PIV to Right AC, placed early this am at [facility]. Action: Flushes well, brisk blood return, patient denies pain. Hospital policy to change OSH PIV's in 24 hrs if patient is to stay longer than 24hrs or site indicates a need to be changed. Response: Bedside nurse to notify VAT if another PIV is needed. PETRA SKELTON RN 10/27/2021 12:07 documented in this encounter H&P Notes * Keyshawn Bui MD - 10/30/2021 1318 EDT Endoscopy Sedation for Procedure History & Physical Date: 10/30/2021 Time: 13:18 Location: [facility] General Medicine Unit Planned Procedure: ERCP Chief Complaint/Indications for Procedure: Choledocholithiasis History Previous Complication with Sedation and/or Anesthesia? No Allergies: No Known Allergies Current Medications: Current Facility-Administered Medications Medication Route Frequency ??? acetaminophen (TYLENOL) solution unit dose cup 995 mg oral PRN Or ??? acetaminophen (TYLENOL) tablet 1,000 mg oral PRN ??? acetaminophen (TYLENOL) tablet 500 mg oral Q6H PRN ??? atropine 0.1 mg/mL syringe 0.5 mg intravenous PRN ??? budesonide-formoterol HFA (SYMBICORT) 160-4.5 mcg/actuation inhaler 2 Puff inhalation BID PRN ??? cefTRIAXone (ROCEPHIN) 1,000 mg in sodium chloride (NS MBP) 50 mL IVPB intravenous Q24H ??? dextrose 50 % solution 12.5 g intravenous PRN ??? diphenhydrAMINE (BENADRYL) capsule 25 mg oral Q12H PRN ??? diphenhydrAMINE (BENADRYL) injection 12.5 mg intravenous PRN ??? [START ON 10/31/2021] enoxaparin (LOVENOX) injection 40 mg subcutaneous DAILY ??? fentaNYL citrate (PF) injection 25-50 mcg intravenous Q5 MINUTES PRN ??? glucagon injection 1 mg intramuscular PRN ??? guaiFENesin (MUCINEX) SR tablet 600 mg oral BID ??? hydrocortisone 1 % lotion topical QID PRN ??? HYDROmorphone (PF) (DILAUDID) 0.5 mg/0.5 mL syringe 0.3-0.5 mg intravenous Q10 MINUTES PRN ??? HYDROmorphone (PF) (DILAUDID) 0.5 mg/0.5 mL syringe 1 mg intravenous Q4H PRN ??? influenza vaccine quad (PF) (6 mos+) IM injection-syringe 0.5 mL intramuscular ONCE ??? insulin aspart U-100 (NOVOLOG FLEXPEN) injection subcutaneous Q6H ??? lactated ringers (LR) infusion intravenous PACU CONTINUOUS ??? lidocaine (PF) 10 mg/mL (1 %) injection 2 mg intradermal PRN ??? lidocaine 5 % (LIDODERM) patch 1 Patch transdermal DAILY ??? metoclopramide (REGLAN) injection 10 mg intravenous PRN ??? metroNIDAZOLE (FLAGYL) tablet 500 mg oral Q8H ??? naloxone (NARCAN) injection 0.2 mg intravenous PRN ??? ondansetron (ZOFRAN-ODT) disintegrating tablet 4 mg oral Q4H PRN Or ??? ondansetron (PF) (ZOFRAN) injection 4 mg intravenous Q4H PRN ??? pantoprazole (PROTONIX) tablet 40 mg oral DAILY BEFORE BREAKFAST ??? polyethylene glycol 3350 (MIRALAX) packet 17 g oral Daily PRN ??? ramelteon (ROZEREM) tablet 8 mg oral AT BEDTIME PRN ??? senna (SENOKOT) tablet 2 Tablet oral AT BEDTIME PRN Past Medical History: Past Medical History: Diagnosis Date ??? Anxiety [...] ??? Staph infection 06/2014 s/p back surgery Social History: Past Surgical History: Procedure Laterality Date ??? BONE INCISION AND DRAINAGE x3 ??? COLONOSCOPY 2014 ??? HIP SURGERY ??? LIVER BIOPSY 07/2015 ??? LUMBAR FUSION ??? OTHER SURGICAL HISTORY SI joint infusion x3 Social History Tobacco Use ??? Smoking status: Never Smoker ??? Smokeless tobacco: Former User ??? Tobacco comment: Daily x 28 YRS - Quit 4 YRS ago. Substance Use Topics ??? Alcohol use: Not Currently Comment: No alcohol x1.5 yr Family History: Family History Problem Relation Age of Onset ??? Diabetes Father ??? Heart Disease Father ??? Cancer Father Review of Systems as pertinent: Physical Exam Vital Signs: BP 113/77 Pulse (!) 44 Comment: Dequan Vaughn notified. Temp 36.8 ??C (98.2 ??F) (Tympanic) Resp 16 Ht 165.1 cm (65) Wt 99.8 kg (220 lb) SpO2 99% BMI 36.61 kg/m?? Heart Examination: Cardiac Regularity: Regular Respiratory Examination: Respiratory Pattern: Regular Breath Sounds Right: Clear Breath Sounds Left: Clear Abdominal Examination: Soft, non-tender, bowel sounds normal, no masses, no organomegaly Additional physical exam related to the proposed procedure, patient activity, disease state and treatment as pertinent: Assessment Previous complications with sedation or anesthesia?: No Airway Concerns: None/NA Anesthesia Classification: ASA 2 Plan: Proceed with sedation for procedure Fasting Time: Date of Last Liquid: 10/29/21 Time of Last Liquid: 2300 Date of Last Solid: 10/26/21 Time of Last Solid: 2300 Patient Appropriate Candidate for Planned Sedation?: Yes Keyshawn Bui MD 10/30/2021 13:18 * Gissel Nunez MD MPH - 10/27/2021 1149 EDT Hospital Medicine Admission History & Physical Service Date: 10/27/2021 Admit Date: 10/27/21 Primary Care Provider: Tristan Collins Chief Complaint: Persistent nausea, vomiting, and stomach pain HPI Yasmani Weiner is a 51 y.o. male with a PMHx of alcohol abuse disorder exacerbated pancreatitis, MITCHELL liver cirrhosis, hypertension, diabetes, GERD, and extensive history of back surgeries now presenting with six weeks of upper abdominal pain. The pain is described as biting, radiates to theback and lateral abdomen, and started intermittent but is now constant. The pain worsened in the past week with accompanying subjective fever, night sweats, nausea, vomiting with signs of blood, and orange urine. He has been unable to hold down food or water for the past two days. Pt presented to [facility] for evaluation and is now presenting to [facility] in anticipation of further imaging. Patient denies any changes in diet, a family history of pancreatitis, use of alcohol in the previous 18 months, a smoking history, and medication changes. Presentation and course at [facility] Vital signs: Temperature 36 7, pulse 84, respirations 16, blood pressure 119/79, oxygen saturation 97% on room air. Labs were significant for lipase >15,000, total bili 6.4, lkaline phosphatase 241, AST 82, ALT 114, WBC 12,600 with left shift, Cr 1.0. CT scan of the abdomen showed distended gallbladder with dependent stone, intra and extra hepatic ductal dilatation, with extrahepatic ducts wasat a diameter of 1.1 cm, inflammatory changes around the pancreas but no pericholecystic fluid. ?? Review of Systems A complete 10 point ROS was performed and pertinent positive and negative findings listed in HPI, otherwise negative. Past Medical History: Diagnosis Date ??? Anxiety ??? Back pain 08/11/2014 S/p repeated lumbar surgeries with posterior spinal fusion and multiple revisions complicated by wound infection due to Staph epidermidis. ??? Depression ??? Diarrhea ??? GERD (gastroesophageal reflux disease) ??? HTN (hypertension) ??? Liver cirrhosis secondary to nonalcoholic steatohepatitis (MITCHELL) ([facility]) (HCC) 09/04/2015 ??? Lung disease ??? Nonspecific finding on examination of urine ??? Pancreatitis, gallstone 10/27/2021 ??? Sleeping difficulty ??? Staph infection 06/2014 s/p back surgery Past Surgical History: Procedure Laterality Date ??? BONE INCISION AND DRAINAGE x3 ??? COLONOSCOPY 2014 ??? HIP SURGERY ??? LIVER BIOPSY 07/2015 ??? LUMBAR FUSION ??? OTHER SURGICAL HISTORY SI joint infusion x3 Social History Tobacco Use ??? Smoking status: Never Smoker ??? Smokeless tobacco: Former User ??? Tobacco comment: Daily x 28 YRS - Quit 4 YRS ago. Substance Use Topics ??? Alcohol use: Yes Comment: OCCASIONAL Family History Problem Relation Age of Onset ??? Diabetes Father ??? Heart Disease Father ??? Cancer Father No current facility-administered medications on file prior to encounter. Current Outpatient Medications on File Prior to Encounter Medication Sig Dispense Refill ??? acamprosate calcium (ACAMPROSATE ORAL) Take 333 mg by mouth 2 times daily. ??? acetylcysteine (NAC) 600 mg capsule Take by mouth. ??? busPIRone (BUSPAR) 10 mg tablet Take 10 mg by mouth 2 times daily. ??? chlorthalidone (HYGROTON) 25 mg tablet Take 25 mg by mouth daily. ??? empagliflozin (JARDIANCE) 10 mg tablet Take 10 mg by mouth daily. ??? fluticasone-salmeterol (ADVAIR) 250-50 mcg/dose diskus inhaler Inhale 1 Puff as directed 2 times daily. ??? lamoTRIgine (LAMICTAL) 100 mg tablet Take 100 mg by mouth daily. ??? magnesium oxide (MAG-OX) 400 mg (241.3 mg magnesium) tablet Take 400 mg by mouth daily. ??? naltrexone (REVIA) 50 mg tablet Take 50 mg by mouth daily. ? ? pantoprazole (PROTONIX) 40 mg tablet Take 1 Tab by mouth BEFORE BREAKFAST & DINNER (Patienttaking differently: Take 40 mg by mouth daily before breakfast. ) 60 Tab 3 ??? polyethylene glycol (GOLYTELY;NULYTELY) 236-22.74-6.74 -5.86 gram suspension Instructions mailed once procedure scheduled. Questions: [facility] Gastroenterology: [phone] or GI Doctor's Office. (Patient not taking: Reported on 11/30/2020) 4000 mL 0 ??? potassium (POTASSIMIN ORAL) Take by mouth. (Patient not taking: Reported on 10/27/2021) ??? sertraline (ZOLOFT) 50 mg tablet Take 100 mg by mouth daily. ??? traZODone (DESYREL) 50 mg tablet Take 50 mg by mouth daily. (Patient not taking: Reported on 10/27/2021) No Known Allergies Objective Vitals Patient Vitals for the past 24 hrs: BP Temp Temp src Resp SpO2 Height Weight 10/27/21 1241 91/50 -- -- 16 93 % -- -- 10/27/21 1132 98/55 36.1 ??C (97 ??F) Tympanic 16 96 % -- -- 10/27/21 0900 (!) 87/53 36.4 ??C (97.5 ??F) Tympanic 16 95 % 152.4 cm (60) 99.3 kg (218 lb 14.4 oz) Weight: 104.33kg Physical Exam GENERAL: Alert and orientedx3. Well appearing, sitting upright in bed, and able to answer all questions. HEENT: Normocephalic, mildly icteric sclerae, Oropharynx clear. Mildly dry mm CHEST: Chest wall is nontender. HEART: Regular rate and rhythm without murmurs. LUNGS: Clear to auscultation bilaterally. ABDOMEN: significant for anticipatory guarding in the upper quandrants and pain elicited on palpation of the gallbladder. Soft lower quadrants with mild pain elicited on palpation SKIN: diffuse darkening of skin. NEUROLOGIC: Cranial nerves II-XII intact without motor/sensory deficit. Labs I have personally reviewed [facility] 10/27/2021 Lipase>65646 Glucose - 213 Bilruvin - 6.4 Alk Phos - 241 AST - 82 ALT - 114 Albumin - 3.[address] Abdomen - [facility] (10/27/2021) Impression 1. Peripancreatic inflammation compatible with acute pancreatitis 2. Mild intra and extrahepatic biliary ductal dilatation with extrahepatic bile duct measuring up to 1.1 cm in caliber. No choledocholithiasis or pancreatic head mass. Assessment Yasmani Weiner is a 51 y.o. male with a PMHx significant for alcohol abuse disorder with alcoholic pancreatitis, cirrhosis MITCHELL vs alcohol use, diabetes, and hypertension presenting with upper upper abdominal pain now with a principle diagnosis of acute pancreatitis likely secondary to possible choledocholithiasis. Plan Acute Pancreatitis likely secondary to Choledocholithiasis with concern for cholangitis (fever) Post prandial, constant, biting, epigastric pain with elevated lipase (>09375), and CT imagingconsistent with inflammatory changes in the pancreas meet criteria for acute pancreatitis. Mostly likely due to gallstones, unlikely to be due to alcohol given sobriety and negative ETOH level, should also consider medications such as lamotrigine No concern for cholecystitis (no pericholecystic fluid), however, given suspected obstruction and fever will treat for cholangitis - MRCP to look for gallstones - GI consult pending MRCP results - Pain management with dilaudid 0.75 mg q4h PRN - Continuous IVF, 125 cc/hr LR for 2 L - Zofran 0,4 mg IV/PO q4h PRN - Start 1g ceftriaxone q24h and metronidazole 500 mg q8h given's patients subjective fever and chills and elevated white with concern for large obstruction (1.1 cm extrahepatic bile duct dilation) Chronic Problems Diabetes On LITIGATION CLAIM REPRESENTATIVE Jardiance , hold for now - SSI and POCT q6h while NPO Hypertension Will need to check his LITIGATION CLAIM REPRESENTATIVE medications, possibly on carvedilol and chlorthalidone - Hold for now Alcohol Use Disorder -Hold LITIGATION CLAIM REPRESENTATIVE acamprosate 666 mg TID Depression, ?Bipolar -Hold LITIGATION CLAIM REPRESENTATIVE Lamotrigine 100 mg BID as this could worsen/cause pancreatitis VTE Prophylaxis Pharmacologic Prophylaxis: Enoxaparin (Lovenox) 40 mg SQ daily - hold in am for likely need for ERCP Code: Full Code NEEDS FORMAL MED REC TOMORROW Discharge Plan pending clinical course Consults None Admission status Inpatient admission due to anticipated duration of hospitalization is two midnights or greater due to Pancreatitis. Patricio Nguyen 10/27/2021 11:50 I was present with the medical student for the history, exam, and medical decision making documented. I have edited the medical student note as appropriate. Pau Lozano DO 10/27/2021 13:59 ATTENDING ATTESTATION: Date of service: 10/27/2021 I have interviewed and examined the patient. I personally reviewed laboratories studies, radiographic studies, ECG, and prior records. I discussed the case with: the medicine house staff team. I agree with and edited (in Blue) the findings and plan of care as documented in the note above. Gissel Nunez MD MPH [facility] Inpatient Service 10/28/2021 11:42 documented in this encounter Consult Notes * Jericho Yen MD - 10/31/2021 1416 EDT Images from the original note were not included. 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 on 10/27/[address] at OSH showed common bile duct dilation and dependent stone in gallbladder. Transfer was initiated for MRCP not available at OSH. S: Patient says that his symptoms began about five weeks ago but he initially thought his nausea and vomiting were related to a stomach bug,. After a week he noticed his symptoms began to feel similar to the last time he had pancreatitis (midepigastric pain, nausea, vomiting, fevers, night sweats). His symptoms continued to worsen and he developed jaundice so he went to [facility] where hewas diagnosed with gallstone pancreatitis and possible cholangitis. After transfer here, he received an MRCP which showed choledocholithiasis and pancreatitis. He states that his fevers resolved on the second day of admission here, but until then he had been sweating through his gown. He has been eating without symptoms since last night, recently ate pot roast, oatmeal, and a cheese omelette. Denies nausea and vomiting since he started eating again, feels abdominal pain is much better though notices he still has RUQ pain with coughing. Has been having bowel movements throughout this episode, noticed they were somewhat darker in color. Last BM was this morning. Patient has been in recovery from AUD for one and a half years. Has undergone multiple prior back surgeries, including one where he needed to be shocked to wake back up because of the narcotics they gave him. Patient is enthusiastic about getting his gallbladder removed. O: VS T 36.6 HR 52 BP 109/69 RR 14 SpO2 97% on RA Gen: well-nourished adult male in NAD HEENT: Atraumatic, normocephalic, no scleral icterus Cardiac: bradycardic but normal S1 S2, no rubs, murmurs or gallops Pulmonary: some crackles in left base, otherwise clear, no increased work of breathing Abdominal: Soft, non-distended, minimally tender with deep palpation in the LLQ (patient kept telling us we could push harder), positive dahl's sign Extremities: WWP, 2+ radial pulses, no pedal edema Skin: warm, dry, no rashes, non-jaundiced WBC 6.93 Na 141 K 4.0 CL 105 Bicarb 30 BUN/Cr: 9/0.58 Alk Phos: 144 AST/ALT: 33/36 T Bili: 1.1 (was 2.3 on arrival 3d ago) TP: 6.4 MRCP 10/27/21 1745 IMPRESSION 1. Choledocholithiasis with several small calculi in the mid to distal common bile duct. Mild intraand extrahepatic biliary ductal dilation. 2. Findings consistent with pancreatitis. 3. Cholelithiasis with distended gallbladder, but no other findings of acute cholecystitis. 4. Left lower pole exophytic renal lesion, fluid density on CT, likely proteinaceous cysts. Simple cyst in the left upper pole. A: Yasmani Weiner is a 51 yo male with a past medical history significant for compensated cirrhosis and previous acute pancreatitis, who underwent ERCP yesterday for gallstone pancreatitis. The ACS service was consulted for consideration of cholecystectomy. His pancreatitis appears to be resolving after removal of 2 bilirubin stones by ERCP and he is now tolerating a diet without nausea or vomiting. His liver disease appears mild with normal LFT's at this point. He would be a good candidate for cholecystectomy. P: -Plan for cholecystectomy tomorrow -Okay for regular diet until midnight -Okay to continue DVT ppx through surgery -NPO after midnight -Remainder of care per primary team Bereket Braden MS4 10/31/21 15:19 Pager #[phone] ACS Service Pager #[phone] Attestation statement: I was present with the medical student for the history, exam, and medical decision making documented. I have personally performed my own physical exam and medical decision making. I have verified and agree with (or, as indicated, have edited) the medical student's documentation. See edits in blue. Jericho Yen MD Orthopaedics PGY-1 Pager #[phone] 10/31/21 17:10 Case discussed with: Dr. Faustina Pimentel Associated attestation - Dom Weems MD - 10/31/2021 5253 EDT Attending Note I examined and discussed this pt with the residents on 10/31/21 and agree with the above note Pt with gall stone pancreatitis, sp ERCP with stone clearance, resolution of pancreatitis, to OR tomorrow for lap amauri Dom Weems MD [id number] * Bob Mayer MD - 10/28/2021 0897 EDT Gastroenterology & Hepatology Consult Note The Gastroenterology service was consulted to see Yasmani Weiner for acute pancreatitis secondary to choledocholithiasis. Requesting Physician: Juan Parks MD HPI: Yasmani Weiner is a 51 y.o. male with a PMHx of AUD with alcoholic pancreatitis, cirrhosis due to MITCHELL vs Alcohol use, diabetes, obesity, and HTN who presented with a 3 week history of progressively worsening upper abdominal pain now with a principle diagnosis of acute pancreatitis due to choledo cholithiasis with initial T Bili at [facility] of 6.4, alk phos of 241, and extrahepatic biliary ductaldilatation to 1.1 cm, and prelim MRCP w/o Contrast revealing choledocholithiasis with numerous small calculi in the mid to distal common bile duct. He does endorse subjective fevers, chills, abdominal pain with radiation to the back and to the right posterior shoulder, and reduced appetite. He states that the abdominal pain began about 3 weeks ago and has been progressing since then. His abdominal pain was 'too much to bear' at home in the leadite heater hours Thursday, 10/27 so he presented to [facility]. He stated that the pain is reminiscent of a prior episode of pancreatitis. He endorses dark and looser than usual bowel movements for the past week. No cherelle blood per rectum. He denies any change in bowel habits, constipation, diarrhea, hematemesis, or swallowing difficulty/pain. Presentation and course at [facility] and [facility] to date: - Initially, he was afebrile at [facility] with Vital signs, 10/27: Temperature 36.7, HR 84, RR 16, BP 119/79, oxygen saturation 97% on room air. Labs were significant for lipase >15,000, total bili 6.4, Alkaline phosphatase 241, AST 82, ALT 114, WBC 12,600 with left shift, Cr 1.0. - CT scan of the abdomen showed distended gallbladder with dependent stone, intra and extra hepaticductal dilatation, with extrahepatic ducts was at a diameter of 1.1 cm, inflammatory changes aroundthe pancreas but no pericholecystic fluid - MRCP revealed: Choledocholithiasis with numerous small calculi in the mid to distal common bile duct - Follow up labs on 10/28 at [facility] revealed an improving T bili of 2.3 and alk phos of 203 - He was started on IV ctx, po flagyl; LR infusion Previous Endoscopies/Colonoscopies: - EGD and [facility] 2014 for diarrhea and weight loss, biopsies taken - EGD was unremarkable - [facility] revealed: ?? Diverticulosis found in the sigmoid colon. ?? Erythematous mucosa was found in the sigmoid colon. ?? A single diminutive polyp was found in the sigmoid colon. [facility] BX revealed focal neutrophilic inflammation of the crypt epithelium ROS: Full review of systems was negative except as detailed above. Past Medical History: Diagnosis Date ??? Anxiety [...] ??? Staph infection 06/2014 s/p back surgery Past Surgical History: Procedure Laterality Date ??? BONE INCISION AND DRAINAGE x3 ??? COLONOSCOPY 2014 ??? HIP SURGERY ??? LIVER BIOPSY 07/2015 ??? LUMBAR FUSION ??? OTHER SURGICAL HISTORY SI joint infusion x3 MEDICATION LIST: See MAR No Known Allergies Social History Socioeconomic History ??? Marital status: Spouse name: Not on file ??? Number of children: Not on file ??? Years of education: Not on file ??? Highest education level: Not on file Occupational History ??? Not on file Tobacco Use ??? Smoking status: Never Smoker ??? Smokeless tobacco: Former User ??? Tobacco comment: Daily x 28 YRS - Quit 4 YRS ago. Substance and Sexual Activity ??? Alcohol use: Not Currently ??? Drug use: No ??? Sexual activity: Yes Partners: Female Other Topics Concern ??? Not on file Social History Narrative ??? Not on file Social Determinants of Health Financial Resource Strain: Not on file Food Insecurity: Not on file Transportation Needs: Not on file Physical Activity: Not on file Stress: Not on file Social Connections: Not on file Family History Problem Relation Age of Onset ??? Diabetes Father ??? Heart Disease Father ??? Cancer Father Vitals: Temp: [36.2 ??C (97.2 ??F)-37.7 ??C (99.9 ??F)] , Heart Rate: [53 BPM-71 BPM] , Resp: [16-18] , BP:(95-115)/(63-78) , SpO2: [93 %-99 %] Vitals: BP 111/64 (BP Cuff Location: Right arm, BP Patient Position: Semi fowlers) Pulse 66 Temp 36.9 ??C (98.4 ??F) (Tympanic) Resp 16 Ht 152.4 cm (60) Wt 99.3 kg (218 lb 14.4 oz) SpO2 93% BMI 42.75 kg/m?? PHYSICAL EXAM: General appearance: Is in no acute distress, appears comfortable, pleasant Skin: no new rashes or skin lesions Extremities: non-edematous, well perfused HEENT: moist mucous membranes, no oral lesions, no conjunctival icterus, EOM intact Lungs: clear to ausculation bilaterally. No audible wheezing, rales, or rhonchi. Heart: regular rate and rhythm, no murmurs or rubs, pulses are 2+ bilaterally Abdomen: soft, no rebound peritonitis, normoactive BS, non-distended, no appreciable hepatosplenomegaly - anticipatory guarding in the upper quandrants and RUQ pain on palpation. Soft lower quadrants with mild pain elicited on palpation. : No Alfaro present Neurologic: CN II-XII grossly intact and normal movement of all extremities Mental Status: awake, A/O x4 Psych - alert and oriented x 3, normal/appropriate mood and affect Laboratory/Imaging/Procedures: Data reviewed. Pertinent results are as follows: [facility] Labs: 10/27/2021 Lipase >15,000 Glucose - 213 Bilirubin - 6.4 Alk Phos - 241 AST - 82 ALT - 114 Albumin - 3.1 CBC: Recent Labs 10/28/21 0822 WBC 8.79 RBC 4.40 HGB 11.7* HCT 36.5* MCV 83 MCH 26.6* MCHC 32.1* PLT 275 BMP: Recent Labs 10/28/21 0822 NA 139 K 3.1* CL 101 CO2 28 BUN 14 CREATININE 0.47* CALCIUM 8.2* LABALBU 3.1* LFT: Recent Labs 10/28/21 0822 TBIL 2.3* ALKPHOS 203* AST 56* ALT 68* Blood Cultures x 2 collected 9 am, 10/28 pending Computed MELD-Na score unavailable. Necessary lab results were not found in the last year. Computed MELD score unavailable. Necessary lab results were not found in the last year. Imaging: CT Abdomen - [facility] (10/27/2021) Impression 1. Peripancreatic inflammation compatible with acute pancreatitis 2. Mild intra and extrahepatic biliary ductal dilatation with extrahepatic bile duct measuring up to 1.1 cm in caliber. No choledocholithiasis or pancreatic head mass. MRCP w/o Contrast: 10/27/2021: IMPRESSION 1. Choledocholithiasis with numerous small calculi in the mid to distal common bile duct. Mild intra and extrahepatic biliary ductal dilation. 2. Findings consistent with pancreatitis. 3. Cholelithiasis with distended gallbladder, but no other findings of acute cholecystitis. 4. Left lower pole exophytic renal lesion, fluid density on CT, likely proteinaceous cysts. Simple cyst in the left upper pole. RUQ US, 10/2016: 1. Hepatic steatosis and a coarsened liver echotexture, consistent with provided history of hepaticcirrhosis. No focal hepatic lesion identified. RUQ US, 04/2016: 1. Hepatomegaly and hepatic steatosis. Impression and Recommendations: Yasmani Weiner is a 51 y.o. male with a PMHx of AUD with alcoholic pancreatitis, cirrhosis 2/2 MITCHELL vs Alcohol use, diabetes, and HTN who presented with upper abdominal pain now with a principle diagnosis of acute pancreatitis due to choledocholithiasis with initial T Bili at [facility] of 6.4, alk phos of 241, and extrahepatic biliary ductal dilatation, 1.1 cm, and prelim MRCP w/o Contrast revealing choledocholithiasis with numerous small calculi in the mid to distal common bile duct. Do not suspect acute cholangitis, will plan for routine ERCP w/ or w/o Endoscopy pending anesthesiaand endoscopy schedule. In the meantime, okay for ice chips and sips of water as tolerated. Gallstone Pancreatitis - T max of 38 at 4/3 around 3 pm and has been subjectively febrile intermittently, do not suspect acute cholangitis. - Plan for ERCP pending anesthesia and endoscopy suite availability - Febrile likely from pancreatitis - NPO after midnight tonight for possible ERCP 4/5 or 4/6. Okay for clears as tolerated today. Cirrhosis due to MITCHELL vs history of AUD, in remission with last drink over 18 months ago per patient - Weight loss program as an outpatient - Continued sobriety - Order an INR to assess liver synthetic function and to allow for calculation of MELD score - Will consider doing an Endoscopy at the time of the ERCP to rule out esophageal varices Anemia: - 11.7 from baseline of 14 - Patient endorses 1 week h/o dark/black stools - last BM was 4/2 am, do not suspect acute GIB atthis time, continue to monitor and visualize next BM - Will consider EGD at time of ERCP to r/o varices as above This patient was seen and examined with Dr. Bui. BOB MAYER MD Internal Medicine Resident, PGY2 Gastroenterology & Hepatology Resident #[id number] Associated attestation - Keyshawn Bui MD - 10/28/2021 5074 EDT Attestation statement: I performed or was present during the [place] or critical portions of the visit and participated in the management of the patient. I agree with the findings and plan of care documented in the resident's/fellow's note. Cirrhosis with evidence of gallstone pancreatitis and CBD stones on ERCP. Also with dark stools concerning for melena. Plan for EGD and ERCP in next few days oncehis pancreatitis improves. documented in this encounter Nursing Notes * Karlee Zepeda - 10/30/2021 5748 EDT ERCP Started * Karlee Zepeda - 10/30/2021 7448 EDT EGD completed * Karlee Zepeda - 10/30/2021 1308 EDT See anesthesia record for intubation/charting documented in this encounter OR Notes * OR Surgeon - Adrien Chapman MD - 11/03/2021 2110 EDT CHOLECYSTECTOMY, LAPAROSCOPIC Operative Note Date: 10/27/2021 - 11/03/2021 Location: [facility] OR Name: Yasmani Weiner, : 1970, Diagnosis Pre-Op Diagnosis Codes: * Calculus of gallbladder and bile duct with obstruction without cholecystitis [K80.71] Post-op Diagnosis * Calculus of gallbladder and bile duct with obstruction without cholecystitis [K80.71] Procedures CHOLECYSTECTOMY, LAPAROSCOPIC [id number] - [place] LAP,CHOLECYSTECTOMY Surgeons * Adrien Chapman MD - Primary * Ange Kidd MD - Resident - Assisting Procedure Summary Anesthesia: General ASA: II Estimated Blood Loss: No Blood Loss Documented LDAs: Peripheral IV 10/28/21 192 Right Forearm (Active) Peripheral IV 11/03/212006 (Active) Non-Surgical Airway (Active) Wound 11/03/21 Incision Abdomen Full thickness (Active) NG/OG Tube Orogastric 18 fr (Active) [REMOVED] Peripheral IV 10/27/21 0300 Anterior;Distal;Right Upper Arm (Removed) [REMOVED] Peripheral IV 10/27/21 1501 Left;Dorsal Forearm (Removed) [REMOVED] Peripheral IV 10/29/21 1712 Anterior;Proximal;Right;Medial Forearm (Removed) [REMOVED] Peripheral IV 10/30/21 0943 Left;Anterior;Proximal Forearm (Removed) [REMOVED] Non-Surgical Airway (Removed) Staff: Collar Fuser: Tad Ritchie RN Scrub Person: Jian Cortez RN Patient Javascript Web Developer: Jacob Kay Indications: Yasmani Weiner is a 51 yo male with a past medical history significant for compensated cirrhosisand previous acute pancreatitis who is admitted for gallstone pancreatitis and is s/p ERCP on 10/30/21. Procedure Details: The patient was seen in the preoperative area. The risks, benefits, complications, treatment options, non-operative alternatives, expected recovery and outcomes were discussed with the patient. The possibilities of reaction to medication, pulmonary aspiration, injury to surrounding structures, bleeding, recurrent infection, the need for additional procedures, failure to diagnose a condition, and creating a complication requiring transfusion or operation were discussed with the patient. The patient concurred with the proposed plan, giving informed consent.?? The site of surgery was properly noted/marked if necessary per policy. The patient has been actively warmed in preoperative area. Preope rative antibiotics have been ordered and given within 1 hours of incision. Venous thrombosis prophylaxis have been ordered including bilateral sequential compression devices. Informed consent was obtained. The patient was brought to the operating room and placed in a supineposition. After induction of general anesthesia, the anterior abdomen was prepped and draped in theusual sterile fashion. A brief timeout was performed, confirming patient, procedure, position, use of SCDs, and use of perioperative antibiotics. A 1.5 cm supraumbilical incision was made with an #11 blade and dissection was carried down to the underlying fascia. This was split sharply, entering the peritoneal cavity. Two 0 Vicryl stay sutureswere placed and a 12 mm Patti trocar was introduced into the peritoneal cavity, which was then insufflated to 15 mm Hg with carbon dioxide. All four quadrants of the abdomen were inspected with the laparoscope. The liver was noted to be quite nodular likely consistent with cirrhosis. Under direct visualization, three 5 mm trocars were placed--one in the epigastric region and two more laterally to the right flank. The gallbladder was grasped cephalad exposing Florencia's pouch. The peritoneal reflection was incised using hook electrocautery in both a lateral and medial direction. Using a [place] dissector, a window was created behind the cystic duct, between the duct and artery. In a similar fashion, the cystic artery was dissected free from its surrounding structures. The Critical View of Safety was achieved. Two 5 mm clips were placed proximally and one distally on the cystic duct, which was transectedsharply. Two 5 mm clips were placed proximally and one distally on the cystic artery, which was transected sharply. The gallbladder was then dissected from the gallbladder fossa with hook electrocautery. During this dissection, a small hole was made in the gallbladder spilling some bile, which was suctioned out. The gallbladder was placed in an Endocatch bag. The right upper quadrant was irrigated with three liters of normal saline given the spillage of bile until it ran clear. On final inspection, the gallbladder fossa appeared clean and dry. Under direct visualization, all trocars were removed and the specimen was removed via the umbilicalsite. The umbilical port site fascia was reapproximated with a [id number] 0 Vicryl suture. Skin sites were closed with interrupted 4-0 Monocryl subcuticular stitches and Dermabond. The patient was then extubated without complication and transferred to the recovery room in stable condition. There were no complications. Sponge count and needle count were correct at the end of the case. As the attending of record, I was present and scrubbed for all critical aspects of this procedure. Findings: - Nodular liver consistent with cirrhosis - Critical view of safety achieved Complications: None; patient tolerated the procedure well. Disposition: PACU - hemodynamically stable. Condition: stable Specimens:Gallbladder was sent for Routine Pathology Implants: none Adrien Chapman MD documented in this encounter Miscellaneous Notes * Plan of Care - Negrito Sanchez RN - 11/04/2021 1548 EDT Focus: Discharge D: Pt noted with discharge orders to home. A: Reviewed discharge paperwork and prescriptions with patient. IV D/C???d and removed Belongings collected and sent home with patient. Pt delivered to he [facility] Transportation R: Pt verbalized understanding of discharge paperwork and denied further questions. Pt left floor via WC to the [employer] outside the hospital NEGRITO SANCHEZ RN 11/04/2021 15:48 * Plan of Care - Negrito Sanchez RN - 11/04/2021 1236 EDT Primary problem for admission: Pt reports to the ED with 6 weeks of upper abdominal pain. He describes his pain as biting and it radiates to his back and lateral abdomen. The pain started as intermittent and then became constant. Today's events: Pt is being d/c today with the [employer] transportation at 1515 Patient info: Code: Full Isolation: n/a Allergies: NKA Alert and oriented X 3 Pain: Mild shoulder pain when he ambulated too much Skin: 4 lap sites on his abdomen from his gallbladder removal. Resp: RA - 1L with comfort Tele: n/a Assistance: Independent Diet: Consistent carb Last BM: 11/04 VSS Misc: Pt educated on correct changes that need to be made to his diet post gall bladder removal Plan: d/c home with his today History: Alohol use disorder, exacerbated pancreatitis, MITCHELL liver cirrhosis, hypertension, diabetes, gerd and several back surgeries. Problem: Daily Care Plan Goals Goal: Care Plan Documentation Outcome: Ongoing Problem: High Fall Risk: Goal: Patient will Remain Free of Falls due to Med. Side Effects Outcome: Ongoing Problem: High Fall Risk: Goal: Patient Will Remain Free from Fall-Related Injury Outcome: Ongoing Problem: High Fall Risk: Goal: Patient will Remain Free of Falls due to Dizziness/Vertigo Outcome: Ongoing Problem: Sensory: Goal: Ability to compensate for vision loss will be supported Outcome: Ongoing Problem: High Fall Risk: Goal: Patient will Remain Free of Falls due to Altered Elimination Outcome: Ongoing * Plan of Care - Devante Alexandra RN - 11/04/2021 0439 EDT Problem: Daily Care Plan Goals Goal: Care Plan Documentation Outcome: Ongoing Area of Focus: Pain/ Comfort Goal This Shift: ??? Pt's pain will be within tolerable level ??? Pt will have adequate sleep Data: Assumed care of pt at 0000. Pt arrived from PACU via pt's bed accompanied by staff s/p lap cholecystectomy. PT alert & verbally responsive, AAOx3. On 3L O2 via NC, weaned down to 1-2L, tolerating well with good O2 sats. Pt has 4 lap sites with dermabond, c/d/i. Pt endorses sore abdomen but tolerable. Pt states he's hungry. Action: Midnight FSBG 131mg/dL, no coverage needed per MAR. Snacks offered, pt prefers PB&J. Denies nausea/vomiting. Pt uses urinal, voiding without difficulty. Call hernandez placed within pt's reach& made comfortable in bed. Response: Pt is now resting/sleeping in bed, not in any apparent distress. VSS, afebrile. 0430 Pt woke up in pain 03/05, prn roxicodone administered. Tolerating room air, plan for d/c today. DEVANTE BARAJAS RN 11/04/2021 * Brief Op Note - Ange Kidd MD - 11/03/20212119 EDT Date: 10/27/2021 - 11/03/2021 Location: [facility] OR Name: Yasmani Weiner, : 1970, Diagnosis Pre-Op Diagnosis Codes: * Gallstone pancreatitis Post-op Diagnosis * Gallstone pancreatitis Procedures CHOLECYSTECTOMY, LAPAROSCOPIC [id number] - [place] LAP,CHOLECYSTECTOMY Surgeons * Adrien Chapman MD - Primary * Ange Kidd MD - Resident - Assisting Procedure Summary Anesthesia: General ASA: II Estimated Blood Loss: 25 mL Total IV Fluids: 600 mL LDAs: Peripheral IV 10/28/211928 Right Forearm (Active) Peripheral IV 11/03/212006 (Active) Wound 11/03/21 Incision Abdomen Full thickness (Active) NG/OG Tube Orogastric 18 fr (Active) [REMOVED] Non-Surgical Airway (Removed) Staff: Collar Fuser: Tad Ritchie RN Scrub Person: Jian Cortez RN Patient Javascript Web Developer: Jacob Kay Indications: Yasmani Weiner is an 51 y.o. male who is having surgery for gallstone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 9:14 EDT [facility] Scanned Images 11/07/2021 9:14 EDT [facility] Tissue ENTIRE GALLBLADDER / Unknown 11/03/2021 21:00 EDT 11/04/2021 10:05 EDT Adrien Chapman MD PATHOLOGY ORDER ALBARO [facility] [address] [place] [address] * POCT GLUCOSE, INTERFACED (11/03/2021 17:56 EDT) Glucose, POC 75 70 - 100 mg/dL 11/03/2021 17:58 EDT [facility] HN LAB POC COMMENT (GLUCOSE) Test Performed by Nursing Services 11/03/2021 17:58 EDT [facility] Blood CAPILLARY BLOOD / Unknown 11/03/2021 17:56 EDT 11/03/2021 17:58 EDT Rick Liu MD POINT OF CARE TEST O DILAN Performing Organization Address [facility]/ZIP Co de Phone Number [facility] [address] [place] [address] * (ABNORMAL) POCT GLUCOSE, INTERFACED (11/03/2021 11:51 EDT) Glucose, POC 110(H) 70 - 100 mg/dL 11/03/2021 11:53 EDT [facility] HN LAB POC COMMENT (GLUCOSE) Test Performed by Nursing Services 11/03/2021 11:53 EDT [facility] Blood CAPILLARY BLOOD / Unknown 11/03/2021 11:51 EDT 11/03/2021 11:53 EDT Rick Liu MD POINT OF CARE TEST O DILAN [facility] [address] [place] [address] * (ABNORMAL) ELECTROLYTES (11/03/2021 6:25 EDT) Pathologist [facility] Sodium 137 136 - 145 mmol/L 11/03/2021 7:40 EDT [facility] Potassium 4.4 3.5 - 5.0 mmol/L 11/03/2021 7:40 EDT [facility] Chloride 108 96 - 110 mmol/L 11/03/2021 7:40 EDT [facility] CO2 Total 20(L) 22 - 32 mmol/L 11/03/2021 7:40 EDT [facility] Anion Gap 9 5 - 14 11/03/2021 7:40 EDT [facility] Blood VENOUS BLOOD / Unknown Venipuncture / Unknown 11/03/2021 6:25 EDT 11/03/2021 7:04 EDT Pau Lozano DO CHEMISTRY & BLOOD NJ S ORDERABLES [facility] [address] [place] [address] * (ABNORMAL) CREATININE (11/03/2021 6:25 EDT) [facility] Creatinine 0.48(L) 0.66 - 1.25 mg/dL 11/03/2021 7:40 EDT [facility] eGFR 123 >60 mL/min/1.73 m2 11/03/2021 7:40 EDT [facility] Blood VENOUS BLOOD / Unknown Venipuncture / Unknown 11/03/2021 6:25 EDT 11/03/2021 7:04 EDT Pau Lozano DO CHEMISTRY & BLOOD NJ S ORDERABLES [facility] [address] [place] [address] * (ABNORMAL) COMPLETE BLOOD COUNT (11/03/2021 6:25 EDT) WBC 7.20 4.00 - 10.40 K/cmm 11/03/2021 7:02 [facility] RBC 4.91 4.36 - 5.78 M/cmm 11/03/2021 7:02 [facility] Hemoglobin 13.5(L) 13.8 - 17.3 gm/dL 11/03/2021 7:02 [facility] HCT 41.5 39.5 - 50.2 % 11/03/2021 7:02 [facility] MCV 85 81 - 95 fl 11/03/2021 7:02 [facility] MCH 27.5(L) 27.6 - 33.0 pg 11/03/2021 7:02 [facility] MCHC 32.5(L) 32.8 - 36.4 gm/dL 11/03/2021 7:02 [facility] RDW-CV 15.3(H) <14.2 % 11/03/2021 7:02 [facility] RDW-SD 45.3 <46.0 fl 11/03/2021 7:02 [facility] PLT 354 141 - 377 K/cmm 11/03/2021 7:02 [facility] MPV 10.4 9.5 - 12.7 fl 11/03/2021 7:02 [facility] Blood VENOUS BLOOD / Unknown Venipuncture / Unknown 11/03/2021 6:25 EDT 11/03/2021 6:55 EDT Pau Lozano DO HEMATOLOGY & PF4 ORD ERABLES [facility] [address] [place] [address] * (ABNORMAL) POCT GLUCOSE, INTERFACED (11/03/2021 6:06 EDT) Glucose, POC 116(H) 70 - 100 mg/dL 11/03/2021 6:07 T [facility] HN LAB POC COMMENT (GLUCOSE) Test Performed by Nursing Services 11/03/2021 6:07 EDT [facility] Blood CAPILLARY BLOOD / Unknown 11/03/2021 6:06 EDT 11/03/2021 6:07 EDT Rick Liu MD POINT OF CARE TEST O RDERABLES Performing Organization Address City/[facility]/ZIP Co de Phone Number [facility] [address] [place] [address] * (ABNORMAL) POCT GLUCOSE, INTERFACED (11/03/2021 0:13 EDT) Glucose, POC 184(H) 70 - 100 mg/dL 11/03/2021 0:14 EDT [facility] HN LAB POC COMMENT (GLUCOSE) Test Performed by Nursing Services 11/03/2021 0:14 EDT [facility] Blood CAPILLARY BLOOD / Unknown 11/03/2021 0:13 EDT 11/03/2021 0:14 EDT Rick Liu MD POINT OF CARE TEST O RDERABLES Performing Organization Address [facility]/ZIP Co de Phone Number [facility] [address] [place] [address] * (ABNORMAL) POCT GLUCOSE, INTERFACED (11/02/2021 21:01 EDT) Glucose, POC 134(H) 70 - 100 mg/dL 11/02/2021 21:06 EDT [facility] HN LAB POC COMMENT (GLUCOSE) Test Performed by Nursing Services 11/02/2021 21:06 EDT [facility] Blood CAPILLARY BLOOD / Unknown 11/02/2021 21:01 EDT 11/02/2021 21:06 EDT Juan Parks MD POINT OF CARE JIGAR T ORDERABLES Performing Organization Address City/[facility]/ZIP Co de Phone Number [facility] [address] [place] [address] * (ABNORMAL) POCT GLUCOSE, INTERFACED (11/02/2021 17:36 EDT) Glucose, POC 108(H) 70 - 100 mg/dL 11/02/2021 17:38 EDT [facility] HN LAB POC COMMENT (GLUCOSE) Test Performed by Nursing Services 11/02/2021 17:38 EDT [facility] Blood CAPILLARY BLOOD / Unknown 11/02/2021 17:36 EDT 11/02/2021 17:38 EDT Rick Liu MD POINT OF CARE TEST O RDERABLES Performing Organization Address City/[facility]/ZIP Co de Phone Number [facility] [address] [place] [address] * (ABNORMAL) POCT GLUCOSE, INTERFACED (11/02/2021 13:17 EDT) Glucose, POC 149(H) 70 - 100 mg/dL 11/02/2021 13:22 EDT [facility] HN LAB POC COMMENT (GLUCOSE) Test Performed by Nursing Services 11/02/2021 13:22 EDT [facility] Blood CAPILLARY BLOOD / Unknown 11/02/2021 13:17 EDT 11/02/2021 13:22 EDT Juan Parks MD POINT OF CARE JIGAR T ORDERABLES Performing Organization Address [facility]/ZIP Co de Phone Number [facility] [address] [place] [address] * (ABNORMAL) POCT GLUCOSE, INTERFACED (11/02/2021 9:23 EDT) Glucose, POC 129(H) 70 - 100 mg/dL 11/02/2021 13:22 EDT [facility] HN LAB POC COMMENT (GLUCOSE) Test Performed by Nursing Services 11/02/2021 13:22 EDT [facility] Blood CAPILLARY BLOOD / Unknown 11/02/2021 9:23 EDT 11/02/2021 13:22 EDT Rick Liu MD POINT OF CARE TEST O RDERABLES Performing Organization Address City/[facility]/ZIP Co de Phone Number [facility] [address] [place] [address] * (ABNORMAL) POCT GLUCOSE, INTERFACED (11/02/2021 6:47 EDT) Glucose, POC 137(H) 70 - 100 mg/dL 11/02/2021 6:52 EDT [facility] HN LAB POC COMMENT (GLUCOSE) Test Performed by Nursing Services 11/02/2021 6:52 EDT [facility] Blood CAPILLARY BLOOD / Unknown 11/02/2021 6:47 EDT 11/02/2021 6:52 EDT Juan Parks MD POINT OF CARE JIGAR T ORDERABLES Performing Organization Address City/[facility] Co de Phone Number [facility] [address] [place] [address] * (ABNORMAL) COMPREHENSIVE METABOLIC PANEL (CMP) (11/02/2021 6:11 EDT) Sodium 139 136 - 145 mmol/L 11/02/2021 8:11 [facility] Potassium 4.5 3.5 - 5.0 mmol/L 11/02/2021 8:11 [facility] Chloride 108 96 - 110 mmol/L 11/02/2021 8:11 [facility] CO2 Total 21(L) 22 - 32 mmol/L 11/02/2021 8:11 [facility] Glucose 145(H) 70 - 100 mg/dL 11/02/2021 8:11 [facility] BUN 16 10 - 26 mg/dL 11/02/2021 8:11 [facility] Creatinine 0.53(L) 0.66 - 1.25 mg/dL 11/02/2021 8:11 [facility] eGFR 120 >60 mL/min/1.7 3m2 11/02/2021 8:11 [facility] Total Protein 6.8 6.3 - 8.2 g/dL 11/02/2021 8:11 [facility] Albumin 3.3(L) 3.4 - 4.9 g/dL 11/02/2021 8:11 [facility] Alkaline Phosphatase 133(H) 38 - 126 U/L 11/02/2021 8:11 [facility] AST 29 15 - 46 U/L 11/02/2021 8:11 [facility] ALT 28 <50 U/L 11/02/2021 8:11 [facility] Bilirubin, Total 0.8 <1.4 mg/dL 11/03/19 8:11 [facility] Calcium 8.0(L) 8.5 - 10.5 mg/dL 11/02/2021 8:11 [facility] Albumin/Globulin Ratio 0.9(L) 1.0 - 2.5 11/02/2021 8:11 [facility] Anion Gap 10 5 - 14 11/02/2021 8:11 [facility] Blood VENOUS BLOOD / Unknown Venipuncture / Unknown 11/02/2021 6:11 EDT 11/02/2021 7:37 EDT Rick Liu MD CHEMISTRY & BLOOD GA S ORDERABLES [facility] [address] [place] [address] * (ABNORMAL) COMPLETE BLOOD COUNT (11/02/2021 6:11 EDT) WBC 8.00 4.00 - 10.40 K/cmm 11/02/2021 7:29 [facility] RBC 4.80 4.36 - 5.78 M/cmm 11/02/2021 7:29 [facility] Hemoglobin 12.9(L) 13.8 - 17.3 gm/dL 11/02/2021 7:29 [facility] HCT 40.5 39.5 - 50.2 % 11/02/2021 7:29 [facility] MCV 84 81 - 95 fl 11/02/2021 7:29 [facility] MCH 26.9(L) 27.6 - 33.0 pg 11/02/2021 7:29 [facility] MCHC 31.9(L) 32.8 - 36.4 gm/dL 11/02/2021 7:29 [facility] RDW-CV 15.0(H) <14.2 % 11/02/2021 7:29 [facility] RDW-SD 44.9 <46.0 fl 11/02/2021 7:29 [facility] PLT 377 141 - 377 K/cmm 11/02/2021 7:29 [facility] MPV 10.7 9.5 - 12.7 fl 11/02/2021 7:29 [facility] Blood VENOUS BLOOD / Unknown Venipuncture / Unknown 11/02/2021 6:11 EDT 11/02/2021 7:15 EDT Pau Lozano DO HEMATOLOGY & PF4 ORD ERABLES Performing Organization Address City/[facility]/ZIP Co de Phone Number [facility] [address] [place] [address] * (ABNORMAL) POCT GLUCOSE, INTERFACED (11/01/2021 20:52 EDT) Glucose, POC 118(H) 70 - 100 mg/dL 11/01/2021 20:55 EDT [facility] HN LAB POC COMMENT (GLUCOSE) Test Performed by Nursing Services 11/01/2021 20:55 EDT [facility] Blood CAPILLARY BLOOD / Unknown 11/01/2021 20:52 EDT 11/01/2021 20:55 EDT Rick Liu MD POINT OF CARE TEST O RDERABLES [facility] [address] [place] [address] * (ABNORMAL) POCT GLUCOSE, INTERFACED (11/01/2021 18:07 EDT) Glucose, POC 236(H) 70 - 100 mg/dL 11/01/2021 18:12 EDT [facility] HN LAB POC COMMENT (GLUCOSE) Test Performed by Nursing Services 11/01/2021 18:12 EDT [facility] Blood CAPILLARY BLOOD / Unknown 11/01/2021 18:07 EDT 11/01/2021 18:12 EDT Rick Liu MD POINT OF CARE TEST O RDERABLES [facility] [address] [place] [address] * (ABNORMAL) POCT GLUCOSE, INTERFACED (11/01/2021 12:00 EDT) Glucose, POC 105(H) 70 - 100 mg/dL 11/01/2021 12:02 EDT [facility] HN LAB POC COMMENT (GLUCOSE) Test Performed by Nursing Services 11/01/2021 12:02 EDT [facility] Blood CAPILLARY BLOOD / Unknown 11/01/2021 12:00 EDT 11/01/2021 12:02 EDT Rick Liu MD POINT OF CARE TEST O RDERABLES [facility] [address] [place] [address] * (ABNORMAL) POCT GLUCOSE, INTERFACED (11/01/2021 6:16 EDT) Glucose, POC 168(H) 70 - 100 mg/dL 11/01/2021 6:17 EDT [facility] HN LAB POC COMMENT (GLUCOSE) Test Performed by Nursing Services 11/01/2021 6:17 EDT [facility] Blood CAPILLARY BLOOD / Unknown 11/01/2021 6:16 EDT 11/01/2021 6:17 EDT Rick Liu MD POINT OF CARE TEST O RDERABLES [facility] [address] [place] [address] * (ABNORMAL) COMPREHENSIVE METABOLIC PANEL (CMP) (11/01/2021 6:15 EDT) Sodium 141 136 - 145 mmol/L 11/01/2021 7:25 [facility] Potassium 4.2 3.5 - 5.0 mmol/L 11/01/2021 7:25 [facility] Chloride 110 96 - 110 mmol/L 11/01/2021 7:25 [facility] CO2 Total 24 22 - 32 mmol/L 11/01/2021 7:25 [facility] Glucose 172(H) 70 - 100 mg/dL 11/01/2021 7:25 [facility] BUN 12 10 - 26 mg/dL 11/01/2021 7:25 [facility] Creatinine 0.62(L) 0.66 - 1.25 mg/dL 11/01/2021 7:25 [facility] eGFR 114 >60 mL/min/1.7 3m2 11/01/2021 7:25 [facility] Total Protein 6.6 6.3 - 8.2 g/dL 11/01/2021 7:25 [facility] Albumin 3.3(L) 3.4 - 4.9 g/dL 11/01/2021 7:25 [facility] Alkaline Phosphatase 140(H) 38 - 126 U/L 11/01/2021 7:25 [facility] AST 32 15 - 46 U/L 11/01/2021 7:25 [facility] ALT 31 <50 U/L 11/01/2021 7:25 [facility] Bilirubin, Total 0.9 <1.4 mg/dL 11/02/19 7:25 [facility] Calcium 8.2(L) 8.5 - 10.5 mg/dL 11/01/2021 7:25 [facility] Albumin/Globulin Ratio 1.0 1.0 - 2.5 11/01/2021 7:25 [facility] Anion Gap 7 5 - 14 11/01/2021 7:25 [facility] Blood VENOUS BLOOD / Unknown Venipuncture / Unknown 11/01/2021 6:15 EDT 11/01/2021 6:50 EDT Rick Liu MD CHEMISTRY & BLOOD GA S ORDERABLES [facility] [address] [place] [address] * (ABNORMAL) COMPLETE BLOOD COUNT (11/01/2021 6:15 EDT) WBC 6.64 4.00 - 10.40 K/cmm 11/01/2021 6:45 [facility] RBC 4.80 4.36 - 5.78 M/cmm 11/01/2021 6:45 [facility] Hemoglobin 12.8(L) 13.8 - 17.3 gm/dL 11/01/2021 6:45 [facility] HCT 39.4(L) 39.5 - 50.2 % 11/01/2021 6:45 [facility] MCV 82 81 - 95 fl 11/01/2021 6:45 [facility] MCH 26.7(L) 27.6 - 33.0 pg 11/01/2021 6:45 [facility] MCHC 32.5(L) 32.8 - 36.4 gm/dL 11/01/2021 6:45 [facility] RDW-CV 14.6(H) <14.2 % 11/01/2021 6:45 [facility] RDW-SD 42.4 <46.0 fl 11/01/2021 6:45 [facility] PLT 367 141 - 377 K/cmm 11/01/2021 6:45 [facility] MPV 10.3 9.5 - 12.7 fl 11/01/2021 6:45 EDT [facility] Blood VENOUS BLOOD / Unknown Venipuncture / Unknown 11/01/2021 6:15 EDT 11/01/2021 6:37 EDT Pau Lozano DO HEMATOLOGY & PF4 ORD ERABLES Performing Organization Address City/[facility]/ZIP Co de Phone Number [facility] [address] [place] [address] * (ABNORMAL) POCT GLUCOSE, INTERFACED (10/31/2021 21:06 EDT) Glucose, POC 122(H) 70 - 100 mg/dL 10/31/2021 21:13 EDT [facility] HN LAB POC COMMENT (GLUCOSE) Test Performed by Nursing Services 10/31/2021 21:13 EDT [facility] Blood CAPILLARY BLOOD / Unknown 10/31/2021 21:06 EDT 10/31/2021 21:13 EDT Rick Liu MD POINT OF CARE TEST O RDSOLIS Performing Organization Address [facility] Co de Phone Number [facility] [address] [place] [address] * (ABNORMAL) POCT GLUCOSE, INTERFACED (10/31/2021 17:31 EDT) Glucose, POC 112(H) 70 - 100 mg/dL 10/31/2021 17:33 EDT [facility] HN LAB POC COMMENT (GLUCOSE) Test Performed by Nursing Services 10/31/2021 17:33 EDT [facility] Blood CAPILLARY BLOOD / Unknown 10/31/2021 17:31 EDT 10/31/2021 17:33 EDT Rick Liu MD POINT OF CARE TEST O RDERAANA Performing Organization Address City/[facility]/ZIP Co de Phone Number [facility] [address] [place] [address] * ECG REPORT - SCANNED (10/31/2021 15:42 EDT) 10/31/2021 15:4 2 EDT Scan 2 Overlay Operator PROCEDURE/MINOR YING GICAL ORDERABLES * (ABNORMAL) POCT GLUCOSE, INTERFACED (10/31/2021 12:42 EDT) Glucose, POC 162(H) 70 - 100 mg/dL 10/31/2021 12:44 EDT [facility] HN LAB POC COMMENT (GLUCOSE) Test Performed by Nursing Services 10/31/2021 12:44 EDT [facility] Blood CAPILLARY BLOOD / Unknown 10/31/2021 12:42 EDT 10/31/2021 12:44 EDT Rick Liu MD POINT OF CARE TEST Dandy KONG Performing Organization Address [facility] Co de Phone Number [facility] [address] [place] [address] * (ABNORMAL) POCT GLUCOSE, INTERFACED (10/31/2021 9:32 EDT) Glucose, POC 138(H) 70 - 100 mg/dL 10/31/2021 9:37 EDT [facility] HN LAB POC COMMENT (GLUCOSE) Test Performed by Nursing Services 10/31/2021 9:37 EDT [facility] Blood CAPILLARY BLOOD / Unknown 10/31/2021 9:32 EDT 10/31/2021 9:37 EDT Rick Liu MD POINT OF CARE TEST Dandy KONG Performing Organization Address [facility] Co de Phone Number [facility] [address] [place] [address] * UPPER ENDOSCOPY PROCEDURE (10/31/2021 7:50 EDT) Anatomical Region Laterality Modality Endoscopy Narrative 10/31/2021 7:50 EDT Procedure Performed EGD Indications for Exam melena Procedure Technique A physical exam was performed. Informed consent was obtained from the patient after explaining all the risks (perforation, bleeding, infection and adverse effects to the medicine), benefits and alternatives to the procedure which the patient appeared to understand and so stated. ??The patient was connected to the monitoring devices and placed in the left lateral position. Continuous oxygen was provided with a nasal cannula and IV medicine administered through a indwelling cannula. After adequate sedation was achieved the gastroscope was inserted under direct vision into the esophagus and then carefully advanced to the second part of duodenum. The second part of duodenum was identified by visual landmarks. The scope was subsequently removed slowly while carefully examining the color, texture, anatomy, and integrity of the mucosa on withdrawal. The patient was subsequently transferred to the recovery area in satisfactory condition. Estimated Blood Loss: None Complications None Medications General Anesthesia See Anesthesia Record Findings Esophagus: normal.No varices Stomach: mild portal hypertensive gastropathy. No gastric varices Duodenum: normal Diagnosis Esophagus: normal.No varices Stomach: mild portal hypertensive gastropathy. No gastric varices Duodenum: normal Recommendations Repeat EGD in 3 years. Keyshawn Bui MD GI PROCEDURE ORDER ABLARO * ERCP-GI PROCEDURE (10/31/2021 7:50 EDT) Anatomical Region Laterality Modality Endoscopy Narrative 10/31/2021 7:50 EDT Procedure Performed ERCP Indications for Exam choledocholithiasis Procedure Technique A physical exam was performed. Informed consent was obtained from the patient after explaining all the risks (perforation, bleeding, pancreatitis, infection and adverse effects to the medicine) , benefits and alternatives to the procedure which the patient appeared to understand and so stated. ??The patient was connected to the monitoring devices and placed in the prone position. Continuous oxygen was provided with a nasal cannula and IV medicine administered through an indwelling cannula. After adequate sedation/anesthesia was established the patient was intubated and the duodenoscope advanced under direct visualization to the second portion of the duodenum/ampullary region. ??ERCP performed as described below, and upon completion the duodenoscope was removed and the patient was brought to recovery/PACU in satisfactory condition. Estimated Blood Loss: 2 Complications None Medications General Anesthesia See Anesthesia Record Findings Using a RX49 [employer] sphincterotome and a 0.035 inch wire, the common bile duct was cannulated with the wire after 1 attempts. Deep cannulation with the sphincterotome was then achieved and a cholangiogram was performed and interpreted in real time showing distal CBD filling defects. ??A sphincterotomy was performed using Endocut settings on the ERBE processor. The sphincterotome was exchanged for a 9-12mm BS extraction balloon. The balloon was inflated to 9 mm and the bile duct swept multiple times to remove 2 bilirubin stones. An occlusion cholangiogram was performed which showed no residual filling defects or abnormalities. ??The duodenoscope was removed and the stomach decompressed upon withdrawal. ERCP Data Summary: Estimated time to cannulation: 1 min Precut sphincterotomy: n Prior MRCP: y Prior EUS: n TBili prior to ERCP: 1.2 CBD diameter: 8mm Prior sphincterotomy: n Prior cholecystectomy: n Pancreatic duct cannulated: n Contrast injected into main pancreatic duct: n Double wire technique: n Long position: n Pancreatic Stent Placement: n Rectal indomethacin: y Sujey-ampullary diverticulum: n Diagnosis Choledocholithiasis with sphincterotomy and stones removal. Recommendations - Monitor for post ERCP complications (pancreatitis, infection, bleeding etc) - Hold anticoagulation for 24 hours - If patient feels well, he may have clears today. ??If continues to feel well, advance as tolerated in AM - Daily LFTs including T.bili - Surgery consult if not already done for cholecystectomy. The??procedure??was??performed??by??Dr. Samson Oliveira M.D. in the presence of Dr. Keyshawn Bui. The attending physician was in the room for the entire procedure. This electronic signature authenticates all electronic and/or handwritten documentation, including orders, generated by the signer during the episode of care contained in this record. 10/31/2021 07:50:16 AM By Keyshawn Bui MD Keyshawn Bui MD GI PROCEDURE ORDER ALBARO * (ABNORMAL) COMPREHENSIVE METABOLIC PANEL (CMP) (10/31/2021 7:16 EDT) Sodium 141 136 - 145 mmol/L 10/31/2021 8:32 EDT [facility] Potassium 4.0 3.5 - 5.0 mmol/L 10/31/2021 8:32 [facility] Chloride 105 96 - 110 mmol/L 10/31/2021 8:32 [facility] CO2 Total 30 22 - 32 mmol/L 10/31/2021 8:32 [facility] Glucose 131(H) 70 - 100 mg/dL 10/31/2021 8:32 [facility] BUN 9(L) 10 - 26 mg/dL 10/31/2021 8:32 [facility] Creatinine 0.58(L) 0.66 - 1.25 mg/dL 10/31/2021 8:32 [facility] eGFR 117 >60 mL/min/1.7 3m2 10/31/2021 8:32 [facility] Total Protein 6.4 6.3 - 8.2 g/dL 10/31/2021 8:32 [facility] Albumin 3.2(L) 3.4 - 4.9 g/dL 10/31/2021 8:32 [facility] Alkaline Phosphatase 144(H) 38 - 126 U/L 10/31/2021 8:32 [facility] AST 33 15 - 46 U/L 10/31/2021 8:32 [facility] ALT 36 <50 U/L 10/31/2021 8:32 [facility] Bilirubin, Total 1.1 <1.4 mg/dL 11/01/19 8:32 [facility] Calcium 8.2(L) 8.5 - 10.5 mg/dL 10/31/2021 8:32 [facility] Albumin/Globulin Ratio 1.0 1.0 - 2.5 10/31/2021 8:32 [facility] Anion Gap 6 5 - 14 10/31/2021 8:32 [facility] Blood VENOUS BLOOD / Unknown Venipuncture / Unknown 10/31/2021 7:16 EDT 10/31/2021 8:00 EDT Rick Liu MD CHEMISTRY & BLOOD GA S ORDERABLES [facility] [address] [place] [address] * (ABNORMAL) COMPLETE BLOOD COUNT (10/31/2021 7:16 EDT) WBC 6.93 4.00 - 10.40 K/cmm 10/31/2021 8:10 EDT [facility] RBC 4.76 4.36 - 5.78 M/cmm 10/31/2021 8:10 T [facility] Hemoglobin 12.5(L) 13.8 - 17.3 gm/dL 10/31/2021 8:10 [facility] HCT 39.8 39.5 - 50.2 % 10/31/2021 8:10 [facility] MCV 84 81 - 95 fl 10/31/2021 8:10 [facility] MCH 26.3(L) 27.6 - 33.0 pg 10/31/2021 8:10 [facility] MCHC 31.4(L) 32.8 - 36.4 gm/dL 10/31/2021 8:10 [facility] RDW-CV 14.6(H) <14.2 % 10/31/2021 8:10 [facility] RDW-SD 44.2 <46.0 fl 10/31/2021 8:10 [facility] PLT 363 141 - 377 K/cmm 10/31/2021 8:10 [facility] MPV 10.6 9.5 - 12.7 fl 10/31/2021 8:10 [facility] Blood VENOUS BLOOD / Unknown Venipuncture / Unknown 10/31/2021 7:16 EDT 10/31/2021 7:59 EDT Pau Lozano DO HEMATOLOGY & PF4 ORD ERABLES [facility] [address] [place] [address] * (ABNORMAL) POCT GLUCOSE, INTERFACED (10/30/2021 21:20 EDT) Glucose, POC 173(H) 70 - 100 mg/dL 10/30/2021 21:28 EDT [facility] HN LAB POC COMMENT (GLUCOSE) Test Performed by Nursing Services 10/30/2021 21:28 EDT [facility] Blood CAPILLARY BLOOD / Unknown 10/30/2021 21:20 EDT 10/30/2021 21:28 EDT Juan Parks MD POINT OF CARE JIGAR T ORDERABLES Performing Organization Address City/[facility]/ZIP Co de Phone Number [facility] [address] [place] [address] * (ABNORMAL) POCT GLUCOSE, INTERFACED (10/30/2021 20:18 EDT) Glucose, POC 225(H) 70 - 100 mg/dL 10/30/2021 20:19 EDT [facility] HN LAB POC COMMENT (GLUCOSE) Test Performed by Nursing Services 10/30/2021 20:19 EDT [facility] Blood CAPILLARY BLOOD / Unknown 10/30/2021 20:18 EDT 10/30/2021 20:19 EDT Rick Liu MD POINT OF CARE TEST O RDERABLES [facility] [address] [place] [address] * POCT GLUCOSE, INTERFACED (10/30/2021 16:49 EDT) Glucose, POC 99 70 - 100 mg/dL 10/30/2021 16:50 EDT [facility] HN LAB POC COMMENT (GLUCOSE) Test Performed by Nursing Services 10/30/2021 16:50 EDT [facility] Blood CAPILLARY BLOOD / Unknown 10/30/2021 16:49 EDT 10/30/2021 16:50 EDT Pau Clineuire DO POINT OF CARE TEST O RDERABLES [facility] [address] [place] [address] * [place] ERCP BILIARY SYSTEM (10/30/2021 13:57 EDT) Anatomical Region Laterality Modality Radio Fluoroscop y 10/30/2021 14:0 1 EDT Impressions 10/30/2021 14:01 EDT Findings/impression: Images show cannulation of the common bile duct with injection of contrast and a balloon sweep. For full details, please see the procedural report. Narrative 10/30/2021 14:01 EDT [place] ERCP BILIARY SYSTEM ??10/30/2021 1:30 PM Signs and Symptoms/Comments: ?? Pancreatitis, gallstone S/P ERCP R/O Obstruction, stones. Assess biliary status. *done in OR* Comparison: MRCP 10/27/2021 Technique: Fluoroscopy was provided for ERCP. Image position and acquisitions were decided by the procedural physician. Procedure Note Deanna Chawla MD - 10/30/2021 [place] ERCP BILIARY SYSTEM 10/30/2021 1:30 PM Signs and Symptoms/Comments: Pancreatitis, gallstone S/P ERCP R/O Obstruction, stones. Assess biliarystatus. *done in OR* Comparison: MRCP 10/27/2021 Technique: Fluoroscopy was provided for ERCP. Image position andacquisitions were decided by the procedural physician. IMPRESSION Findings/impression: Images show cannulation of the common bile duct withinjection of contrast and a balloon sweep. For full details, please seethe procedural report. Keyshawn Bui MD IMG FLUOROSCOPY OR DERABLES * (ABNORMAL) COMPREHENSIVE METABOLIC PANEL (CMP) (10/30/2021 7:08 EDT) Sodium 140 136 - 145 mmol/L 10/30/2021 9:26 EDT [facility] Potassium 3.7 3.5 - 5.0 mmol/L 10/30/2021 9:26 EDT [facility] Chloride 104 96 - 110 mmol/L 10/30/2021 9:26 [facility] CO2 Total 25 22 - 32 mmol/L 10/30/2021 9:26 [facility] Glucose 130(H) 70 - 100 mg/dL 10/30/2021 9:26 [facility] BUN 9(L) 10 - 26 mg/dL 10/30/2021 9:26 [facility] Creatinine 0.40(L) 0.66 - 1.25 mg/dL 10/30/2021 9:26 [facility] eGFR 130 >60 mL/min/1.7 3m2 10/30/2021 9:26 [facility] Total Protein 6.2(L) 6.3 - 8.2 g/dL 10/30/2021 9:26 [facility] Albumin 3.1(L) 3.4 - 4.9 g/dL 10/30/2021 9:26 [facility] Alkaline Phosphatase 155(H) 38 - 126 U/L 10/30/2021 9:26 [facility] AST 28 15 - 46 U/L 10/30/2021 9:26 [facility] ALT 40 <50 U/L 10/30/2021 9:26 [facility] Bilirubin, Total 1.2 <1.4 mg/dL 10/31/19 9:26 [facility] Calcium 7.9(L) 8.5 - 10.5 mg/dL 10/30/2021 9:26 [facility] Albumin/Globulin Ratio 1.0 1.0 - 2.5 10/30/2021 9:26 [facility] Anion Gap 11 5 - 14 10/30/2021 9:26 [facility] Blood VENOUS BLOOD / Unknown Venipuncture / Unknown 10/30/2021 7:08 EDT 10/30/2021 8:50 EDT Rick Liu MD CHEMISTRY & BLOOD GA S ORDERABLES [facility] [address] [place] [address] * (ABNORMAL) COMPLETE BLOOD COUNT (10/30/2021 7:08 EDT) WBC 6.54 4.00 - 10.40 K/cmm 10/30/2021 8:35 [facility] RBC 4.37 4.36 - 5.78 M/cmm 10/30/2021 8:35 [facility] Hemoglobin 11.6(L) 13.8 - 17.3 gm/dL 10/30/2021 8:35 [facility] HCT 36.3(L) 39.5 - 50.2 % 10/30/2021 8:35 [facility] MCV 83 81 - 95 fl 10/30/2021 8:35 [facility] MCH 26.5(L) 27.6 - 33.0 pg 10/30/2021 8:35 [facility] MCHC 32.0(L) 32.8 - 36.4 gm/dL 10/30/2021 8:35 [facility] RDW-CV 14.4(H) <14.2 % 10/30/2021 8:35 [facility] RDW-SD 42.7 <46.0 fl 10/30/2021 8:35 [facility] PLT 339 141 - 377 K/cmm 10/30/2021 8:35 [facility] MPV 10.7 9.5 - 12.7 fl 10/30/2021 8:35 [facility] Blood VENOUS BLOOD / Unknown Venipuncture / Unknown 10/30/2021 7:08 EDT 10/30/2021 8:24 EDT Pau Lozano DO HEMATOLOGY & PF4 ORD ERABLES [facility] [address] [place] [address] * (ABNORMAL) POCT GLUCOSE, INTERFACED (10/30/2021 5:50 EDT) Glucose, POC 114(H) 70 - 100 mg/dL 10/30/2021 5:51 EDT [facility] HN LAB POC COMMENT (GLUCOSE) Test Performed by Nursing Services 10/30/2021 5:51 EDT [facility] Blood CAPILLARY BLOOD / Unknown 10/30/2021 5:50 EDT 10/30/2021 5:51 EDT Pau Pazre DO POINT OF CARE TEST O RDERABLES Performing Organization Address [facility] Co de Phone Number [facility] [address] [place] [address] * (ABNORMAL) POCT GLUCOSE, INTERFACED (10/29/2021 23:52 EDT) Glucose, POC 214(H) 70 - 100 mg/dL 10/29/2021 23:55 EDT [facility] HN LAB POC COMMENT (GLUCOSE) Test Performed by Nursing Services 10/29/2021 23:55 EDT [facility] Blood CAPILLARY BLOOD / Unknown 10/29/2021 23:52 EDT 10/29/2021 23:55 EDT Pau Alia DO POINT OF CARE TEST O RDERABLES Performing Organization Address [facility] Co de Phone Number [facility] [address] [place] [address] * EKG 12-LEAD (10/29/2021 22:36 EDT) 10/29/2021 22:3 6 EDT Narrative [facility] EKG - 11/07/2021 17:33 EDT ? [facility] ? Test Date: ?2021-10-29 Pat Name: ? YASMANI WEINER ?Department: ?? Yu 4 ? Room: ? B486 Gender: ? Male ? 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 [id number] : ?1970 ? Requested By: DELMI VIVIANA Order Number: [id number] ? Reading MD: ?? BEREKET HARRIS DE SA MD ? Measurements Intervals ?[place] ? Rate: ? 46 ? P: ?-1 WA: ? 185 ?QRS: ?-9 QRSD: ? 95 ? T: ?-6 QT: ? 468 ? QTc: ?412 ? Interpretive Statements SINUS BRADYCARDIA MODERATE VOLTAGE CRITERIA FOR LVH, CONSIDER NORMAL VARIANT Automated Interpretation. ??Provider Interpretation to follow. Compared to ECG 10/27/2021 13:24:30 Sinus rhythm no longer present ST (T wave) deviation no longer present I reviewed the tracing and have either agreed or edited the findings in this report. Electronically Signed On 11-07-2021 17:33:36 EDT by BEREKET JEFFERSON SA, MD. 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 Provider Interpretation to follow. Compared to ECG 10/27/2021 13:24:30 Sinus rhythm no longer present ST (T wave) deviation no longer present I reviewed the tracing and have either agreed or edited the findings inthis report. Electronically Signed On 11-07-2021 17:33:36 EDT by BEREKET MCCANN SA, MD. Viviana Awad MD CARDIAC ECG ORDERABL ES [facility] EKG * (ABNORMAL) POCT GLUCOSE, INTERFACED (10/29/2021 18:02 EDT) Glucose, POC 161(H) 70 - 100 mg/dL 10/29/2021 18:04 EDT [facility] HN LAB POC COMMENT (GLUCOSE) Test Performed by Nursing Services 10/29/2021 18:04 EDT [facility] Blood CAPILLARY BLOOD / Unknown 10/29/2021 18:02 EDT 10/29/2021 18:04 EDT Pau Pazre DO POINT OF CARE TEST O RDERABLES Performing Organization Address [facility] Co de Phone Number [facility] [address] [place] [address] * (ABNORMAL) POCT GLUCOSE, INTERFACED (10/29/2021 12:24 EDT) Glucose, POC 107(H) 70 - 100 mg/dL 10/29/2021 12:26 EDT [facility] HN LAB POC COMMENT (GLUCOSE) Test Performed by Nursing Services 10/29/2021 12:26 EDT [facility] Blood CAPILLARY BLOOD / Unknown 10/29/2021 12:24 EDT 10/29/2021 12:26 EDT Pau Lozano DO POINT OF CARE TEST O RDERABLES Performing Organization Address [facility] Co de Phone Number [facility] [address] [place] [address] * (ABNORMAL) COMPREHENSIVE METABOLIC PANEL (CMP) (10/29/2021 7:03 EDT) Sodium 139 136 - 145 mmol/L 10/29/2021 7:57 T [facility] Potassium 3.3(L) 3.5 - 5.0 mmol/L 10/29/2021 7:57 T [facility] Chloride 103 96 - 110 mmol/L 10/29/2021 7:57 T [facility] CO2 Total 23 22 - 32 mmol/L 10/29/2021 7:57 EDT [facility] Glucose 142(H) 70 - 100 mg/dL 10/29/2021 7:57 T [facility] BUN 9(L) 10 - 26 mg/dL 10/29/2021 7:57 EDT [facility] Creatinine 0.40(L) 0.66 - 1.25 mg/dL 10/29/2021 7:57 [facility] eGFR 130 >60 mL/min/1.7 3m2 10/29/2021 7:57 [facility] Total Protein 6.4 6.3 - 8.2 g/dL 10/29/2021 7:57 [facility] Albumin 3.1(L) 3.4 - 4.9 g/dL 10/29/2021 7:57 [facility] Alkaline Phosphatase 172(H) 38 - 126 U/L 10/29/2021 7:57 [facility] AST 37 15 - 46 U/L 10/29/2021 7:57 [facility] ALT 51(H) <50 U/L 10/29/2021 7:57 [facility] Bilirubin, Total 1.5(H) <1.4 mg/dL 10/30/19 7:57 [facility] Calcium 8.2(L) 8.5 - 10.5 mg/dL 10/29/2021 7:57 [facility] Albumin/Globulin Ratio 0.9(L) 1.0 - 2.5 10/29/2021 7:57 [facility] Anion Gap 13 5 - 14 10/29/2021 7:57 [facility] Blood VENOUS BLOOD / Unknown Venipuncture / Unknown 10/29/2021 7:03 EDT 10/29/2021 7:25 EDT Rick Liu MD CHEMISTRY & BLOOD GA S ORDERABLES [facility] [address] [place] [address] * (ABNORMAL) COMPLETE BLOOD COUNT (10/29/2021 7:03 EDT) WBC 7.57 4.00 - 10.40 K/cmm 10/29/2021 7:34 [facility] RBC 4.39 4.36 - 5.78 M/cmm 10/29/2021 7:34 [facility] Hemoglobin 11.7(L) 13.8 - 17.3 gm/dL 10/29/2021 7:34 [facility] HCT 36.2(L) 39.5 - 50.2 % 10/29/2021 7:34 [facility] MCV 83 81 - 95 fl 10/29/2021 7:34 [facility] MCH 26.7(L) 27.6 - 33.0 pg 10/29/2021 7:34 [facility] MCHC 32.3(L) 32.8 - 36.4 gm/dL 10/29/2021 7:34 [facility] RDW-CV 14.4(H) <14.2 % 10/29/2021 7:34 [facility] RDW-SD 42.7 <46.0 fl 10/29/2021 7:34 [facility] PLT 304 141 - 377 K/cmm 10/29/2021 7:34 [facility] MPV 10.5 9.5 - 12.7 fl 10/29/2021 7:34 [facility] Blood VENOUS BLOOD / Unknown Venipuncture / Unknown 10/29/2021 7:03 EDT 10/29/2021 7:23 EDT Pau Lozano DO HEMATOLOGY & PF4 ORD ERABLES [facility] [address] [place] [id number] * (ABNORMAL) PROTIME (10/29/2021 7:03 EDT) I.N.R. 1.3(H) 0.9 - 1.1 Ratio 10/29/2021 7:38 [facility] Pro Time 14.9(H) 10.4 - 12.6 secs 10/29/2021 7:38 [facility] Blood VENOUS BLOOD / Unknown Venipuncture / Unknown 10/29/2021 7:03 EDT 10/29/2021 7:21 EDT Narrative [facility] - 10/29/2021 7:38 EDT Moderate Intensity Coumadin INR = 2.0-3.0 Adjustments in anticoagulant therapy dose should be based on the INR and NOT on the Protime. Pau Lozano DO HEMATOLOGY & PF4 ORD ERABLES Performing Organization Address [facility]/ZIP Co de Phone Number [facility] [address] [place] [address] * (ABNORMAL) POCT GLUCOSE, INTERFACED (10/29/2021 5:55 EDT) Glucose, POC 125(H) 70 - 100 mg/dL 10/29/2021 5:56 EDT [facility] HN LAB POC COMMENT (GLUCOSE) Test Performed by Nursing Services 10/29/2021 5:56 EDT [facility] Blood CAPILLARY BLOOD / Unknown 10/29/2021 5:55 EDT 10/29/2021 5:56 EDT Pau Lozano DO POINT OF CARE TEST O RDERABLES Performing Organization Address [facility] Co de Phone Number [facility] [address] [place] [address] * POCT GLUCOSE, INTERFACED (10/28/2021 23:57 EDT) Glucose, POC 93 70 - 100 mg/dL 10/28/2021 23:58 EDT [facility] HN LAB POC COMMENT (GLUCOSE) Test Performed by Nursing Services 10/28/2021 23:58 EDT [facility] Blood CAPILLARY BLOOD / Unknown 10/28/2021 23:57 EDT 10/28/2021 23:58 EDT Pau Lozano DO POINT OF CARE TEST O RDERABLES Performing Organization Address City/[facility]/ZIP Co de Phone Number [facility] [address] [place] [address] * (ABNORMAL) POCT GLUCOSE, INTERFACED (10/28/2021 17:46 EDT) Glucose, POC 122(H) 70 - 100 mg/dL 10/28/2021 17:47 EDT [facility] HN LAB POC COMMENT (GLUCOSE) Test Performed by Nursing Services 10/28/2021 17:47 EDT [facility] Blood CAPILLARY BLOOD / Unknown 10/28/2021 17:46 EDT 10/28/2021 17:47 EDT Pau Lozano DO POINT OF CARE TEST O RDERABLES Performing Organization Address [facility] Co de Phone Number [facility] [address] [place] [address] * (ABNORMAL) POCT GLUCOSE, INTERFACED (10/28/2021 13:28 EDT) Glucose, POC 68(L) 70 - 100 mg/dL 10/28/2021 13:33 EDT [facility] HN LAB POC COMMENT (GLUCOSE) Test Performed by Nursing Services 10/28/2021 13:33 EDT [facility] Blood CAPILLARY BLOOD / Unknown 10/28/2021 13:28 EDT 10/28/2021 13:33 EDT Pau Lozano DO POINT OF CARE TEST O RDERABLES Performing Organization Address [facility] Co de Phone Number [facility] [address] [place] [address] * BACTERIAL CULTURE, BLOOD (10/28/2021 9:02 EDT) Organism ID No Growth at 5 days 11/02/2021 10:02 EDT [facility] Blood VENOUS BLOOD / Unknown Blood Culture / Unknown 10/28/2021 9:02 EDT 10/28/2021 9:48 EDT Pau Lozano DO MICROBIOLOGY - GENER AL ORDERABLES Performing Organization Address City/[facility]/ZIP Co de Phone Number [facility] [address] [place] [address] * BACTERIAL CULTURE, BLOOD (10/28/2021 9:01 EDT) Organism ID No Growth at 5 days 11/02/2021 10:02 [facility] Blood VENOUS BLOOD / Unknown Blood Culture / Unknown 10/28/2021 9:01 EDT 10/28/2021 9:48 EDT Pau Lozano DO MICROBIOLOGY - GENER AL ORDERABLES [facility] LABORATORY SERVICES [address] [place] [address] * (ABNORMAL) COMPREHENSIVE METABOLIC PANEL (CMP) (10/28/2021 8:22 EDT) Sodium 139 136 - 145 mmol/L 10/28/2021 9:46 [facility] Potassium 3.1(L) 3.5 - 5.0 mmol/L 10/28/2021 9:46 [facility] Chloride 101 96 - 110 mmol/L 10/28/2021 9:46 [facility] CO2 Total 28 22 - 32 mmol/L 10/28/2021 9:46 [facility] Glucose 104(H) 70 - 100 mg/dL 10/28/2021 9:46 [facility] BUN 14 10 - 26 mg/dL 10/28/2021 9:46 [facility] Creatinine 0.47(L) 0.66 - 1.25 mg/dL 10/28/2021 9:46 [facility] eGFR 124 >60 mL/min/1.7 3m2 10/28/2021 9:46 [facility] Total Protein 6.4 6.3 - 8.2 g/dL 10/28/2021 9:46 [facility] Albumin 3.1(L) 3.4 - 4.9 g/dL 10/28/2021 9:46 [facility] Alkaline Phosphatase 203(H) 38 - 126 U/L 10/28/2021 9:46 T [facility] AST 56(H) 15 - 46 U/L 10/28/2021 9:46 T [facility] ALT 68(H) <50 U/L 10/28/2021 9:46 [facility] Bilirubin, Total 2.3(H) <1.4 mg/dL 10/29/19 9:46 T [facility] Calcium 8.2(L) 8.5 - 10.5 mg/dL 10/28/2021 9:46 [facility] Albumin/Globulin Ratio 0.9(L) 1.0 - 2.5 10/28/2021 9:46 [facility] Anion Gap 10 5 - 14 10/28/2021 9:46 [facility] Blood VENOUS BLOOD / Unknown Venipuncture / Unknown 10/28/2021 8:22 EDT 10/28/2021 8:45 EDT Rick Liu MD CHEMISTRY & BLOOD GA S ORDERABLES Performing Organization Address City/State/[facility] Co de Phone Number [facility] [address] [place] [address] * (ABNORMAL) COMPLETE BLOOD COUNT (10/28/2021 8:22 EDT) WBC 8.79 4.00 - 10.40 K/cmm 10/28/2021 8:56 [facility] RBC 4.40 4.36 - 5.78 M/cmm 10/28/2021 8:56 [facility] Hemoglobin 11.7(L) 13.8 - 17.3 gm/dL 10/28/2021 8:56 [facility] HCT 36.5(L) 39.5 - 50.2 % 10/28/2021 8:56 [facility] MCV 83 81 - 95 fl 10/28/2021 8:56 [facility] MCH 26.6(L) 27.6 - 33.0 pg 10/28/2021 8:56 EDT [facility] MCHC 32.1(L) 32.8 - 36.4 gm/dL 10/28/2021 8:56 EDT [facility] RDW-CV 14.6(H) <14.2 % 10/28/2021 8:56 EDT [facility] RDW-SD 43.8 <46.0 fl 10/28/2021 8:56 EDT [facility] PLT 275 141 - 377 K/cmm 10/28/2021 8:56 EDT [facility] MPV 10.4 9.5 - 12.7 fl 10/28/2021 8:56 EDT [facility] Blood VENOUS BLOOD / Unknown Venipuncture / Unknown 10/28/2021 8:22 EDT 10/28/2021 8:46 EDT Pau Lozano DO HEMATOLOGY & PF4 ORD ERABLES Performing Organization Address City/[facility] Co de Phone Number [facility]ORY [facility] [address] [place] [address] * POCT GLUCOSE, INTERFACED (10/28/2021 5:49 EDT) Glucose, POC 82 70 - 100 mg/dL 10/28/2021 5:53 EDT [facility] HN LAB POC COMMENT (GLUCOSE) Test Performed by Nursing Services 10/28/2021 5:53 EDT [facility] Blood CAPILLARY BLOOD / Unknown 10/28/2021 5:49 EDT 10/28/2021 5:53 EDT Pau Lozano DO POINT OF CARE TEST O RDERABLES Performing Organization Address City/[facility]/ZIP Co de Phone Number [facility] [address] [place] [address] * COVID-19 TEST [facility] PCR (10/28/2021 1:12 EDT) Swab ENTIRE NASOPHARYNX / Unknown Swab / Unknown 10/28/2021 1:12 EDT 10/28/2021 1:16 EDT Steven Dickson MD MICROBIOLOGY - GENER AL ORDERABLES Performing Organization Address [facility] de Phone Number [facility]ORY SERVICES [address] [place] [address] * COVID-19 TESTING (10/28/2021 1:12 EDT) COVID-19 rt-PCR Result Negative Negative 10/28/2021 2:09 EDT [facility] Comment: This test has not been FDA cleared or approved. This test has been authorized by FDA under an EUA for use by authorized laboratories. This test has been authorized only for detection of nucleic acid from 2019-nCoV, not for any other viruses or pathogens. This test is only authorized for the duration of the declaration that circumstances exist justifying the authorization of emergency use of in vitro diagnostic tests for detection and/or diagnosis of 2019-nCoV under section 564(b)(1) of Act, 21 U.S.C ?? 360bbb-3(b) (1), unless the authorization is terminated or revoked sooner. Negative results do not preclude 2019-nCoV infection and should not be used as the sole basis for treatment or other patient management decisions. Negative results must be combined with clinical observations, patient history, and epidemiological information. Performed on the We GeneXpert Instrument Performing Lab GeneXpert [facility] Lab 10/28/2021 2:09 EDT [facility]ORY SERVICES Swab ENTIRE NASOPHARYNX / Unknown Swab / Unknown 10/28/2021 1:12 EDT 10/28/2021 1:16 EDT Steven Dickson MD MICROBIOLOGY - GENER AL ORDERABLES Performing Organization Address [facility] Co de Phone Number [facility]ORY SERVICES [address] [place] [address] * POCT GLUCOSE, INTERFACED (10/28/2021 0:28 EDT) Glucose, POC 76 70 - 100 mg/dL 10/28/2021 0:33 EDT [facility]ORY SERVICES HN LAB POC COMMENT (GLUCOSE) Test Performed by Nursing Services 10/28/2021 0:33 EDT [facility] Blood CAPILLARY BLOOD / Unknown 10/28/2021 0:28 EDT 10/28/2021 0:33 EDT Pau Pazre DO POINT OF CARE TEST O RDERABLES Performing Organization Address [facility] Co de Phone Number [facility]ORY SERVICES [address] [place] [address] * POCT GLUCOSE, INTERFACED (10/27/2021 18:32 EDT) Glucose, POC 97 70 - 100 mg/dL 10/27/2021 18:37 EDT [facility]ORY SERVICES HN LAB POC COMMENT (GLUCOSE) Test Performed by Nursing Services 10/27/2021 18:37 EDT [facility] Blood CAPILLARY BLOOD / Unknown 10/27/2021 18:32 EDT 10/27/2021 18:37 EDT Pau Pazre DO POINT OF CARE TEST O RDERABLES Performing Organization Address [facility] Co de Phone Number [facility]ORY [facility] [address] [place] [address] * MR CHOLANGIOPANCREATOGRAM WO CONTRAST (10/27/2021 17:45 EDT) Anatomical Region Laterality Modality Abdomen Magnetic Resonan ce 10/28/2021 8:46 EDT Impressions 10/28/2021 8:46 EDT 1. Choledocholithiasis with several small calculi in the mid to distal common bile duct. Mild intra and extrahepatic biliary ductal dilation. 2. Findings consistent with pancreatitis. 3. Cholelithiasis with distended gallbladder, but no other findings of acute cholecystitis. 4. Left lower pole exophytic renal lesion, fluid density on CT, likely proteinaceous cysts. Simple cyst in the left upper pole. I have personally reviewed the images and the above interpretation and agree with the findings. Narrative 10/28/2021 8:46 EDT MR CHOLANGIOPANCREATOGRAM WO CONTRAST ??10/27/2021 5:00 PM Signs and Symptoms/Comments: ?? Evaluate Stones in common bile duct leading to pancreatitis Technique: Heavily T2 weighted images of the biliary tree obtained per standard MRCP protocol, supplemented by kinematic and T1 weighted images. Comparison: Outside hospital CT 10/27/2021 Findings: Lower chest: Unremarkable. Unenhanced liver parenchyma: The liver is enlarged measuring 25 cm. There is an 8 mm cystic lesion in the right lower lobe. No concerning hepatic lesions. Gallbladder: The gallbladder is distended and there are dependent calculi. No wall thickening or pericholecystic fluid to suggest acute cholecystitis. Bile ducts: There are numerous filling defects within the mid to distal common bile duct which are T2 dark and mildly T1 bright consistent with calculi, largest appears to measure approximately 3 mm in diameter. Mild intra and extrahepatic biliary ductal dilation. The common bile duct measures 9 mm. Pancreatic duct: The pancreatic duct is not enlarged. Unenhanced pancreas: There is edema surrounding the pancreas. No focal pancreatic lesions. Spleen, adrenal glands, kidneys: The spleen and adrenals are unremarkable. There is a 1.9 cm exophytic lesion from the medial aspect of the left lower pole, mildly T2 hyperintense and T1 isointense. Simple cyst in the superior left kidney. No hydronephrosis. Bowel: No evidence of obstruction. There is edema around the third portion of the duodenum, likely secondary to adjacent pancreatitis. Peritoneal cavity: Edema around the pancreas and in the upper mesentery. No free fluid. Lymphovascular: The vasculature is unremarkable. Abdominal wall: No bowel containing hernia. Musculoskeletal: Posterior fixation screws in the lumbar spine and sacral screws. Localizer: No additional findings. Procedure Note Deanna Chawla MD - 10/28/2021 MR CHOLANGIOPANCREATOGRAM WO CONTRAST 10/27/2021 5:00 PM Signs and Symptoms/Comments: Evaluate Stones in common bile duct leading to pancreatitis Technique: Heavily T2 weighted images of the biliary tree obtained per standard MRCPprotocol, supplemented by kinematic and T1 weighted images. Comparison: Outside hospital CT 10/27/2021 Findings: Lower chest: Unremarkable. Unenhanced liver parenchyma: The liver is enlarged measuring 25 cm. Thereis an 8 mm cystic lesion in the right lower lobe. No concerning hepaticlesions. Gallbladder: The gallbladder is distended and there are dependent calculi.No wall thickening or pericholecystic fluid to suggest acutecholecystitis. Bile ducts: There are numerous filling defects within the mid to distalcommon bile duct which are T2 dark and mildly T1 bright consistent withcalculi, largest appears to measure approximately 3 mm in diameter. Mildintra and extrahepatic biliary ductal dilation. The common bile ductmeasures 9 mm. Pancreatic duct: The pancreatic duct is not enlarged. Unenhanced pancreas: There is edema surrounding the pancreas. No focalpancreatic lesions. Spleen, adrenal glands, kidneys: The spleen and adrenals are unremarkable.There is a 1.9 cm exophytic lesion from the medial aspect of the leftlower pole, mildly T2 hyperintense and T1 isointense. Simple cyst in thesuperior left kidney. No hydronephrosis. Bowel: No evidence of obstruction. There is edema around the third portionof the duodenum, likely secondary to adjacent pancreatitis. Peritoneal cavity: Edema around the pancreas and in the upper mesentery.No free fluid. Lymphovascular: The vasculature is unremarkable. Abdominal wall: No bowel containing hernia. Musculoskeletal: Posterior fixation screws in the lumbar spine and sacralscrews. Localizer: No additional findings. IMPRESSION 1. Choledocholithiasis with several small calculi in the mid to distalcommon bile duct. Mild intra and extrahepatic biliary ductal dilation. 2. Findings consistent with pancreatitis. 3. Cholelithiasis with distended gallbladder, but no other findings ofacute cholecystitis. 4. Left lower pole exophytic renal lesion, fluid density on CT, likelyproteinaceous cysts. Simple cyst in the left upper pole. I have personally reviewed the images and the above interpretation andagree with the findings. Pau Lozano DO G MRI ORDERABLES * EKG 12-LEAD (10/27/2021 13:24 EDT) 10/27/2021 13:2 4 EDT Narrative [facility] EKG - 10/31/2021 15:37 EDT ? [facility] ? Test Date: ?2021-10-27 Pat Name: ? YASMANI WEINER ?Department: ?? Yu 4 ? Room: ? B486 Gender: ? Male ? 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 : ?1970 ? Requested By: ALIA HARTMAN Order Number: [id number] ? Reading MD: ?? GRETA NIEVES MD ? Measurements Intervals ?[place] ? Rate: ? 65 ? P: ?67 WA: ? 196 ?QRS: ?-8 QRSD: ? 108 ?T: ?5 QT: ? 413 ? QTc: ?430 ? Interpretive Statements SINUS RHYTHM LEFT VENTRICULAR HYPERTROPHY AND ST-T CHANGE I reviewed the tracing and have either agreed or edited the findings in this report. Electronically Signed On 10-31-2021 15:37:33 EDT by GRETA NIEVES MD. 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 Electronically Signed On 10-31-2021 15:37:33 EDT by GRETA MONTES DE OCA. Pau Lozano DO CARDIAC ECG ORDERABL ES Performing Organization Address [facility] Co de Phone Number [facility] EKG * (ABNORMAL) POCT GLUCOSE, INTERFACED (10/27/2021 13:22 EDT) Glucose, POC 144(H) 70 - 100 mg/dL 10/27/2021 13:26 EDT [facility] LABORATORY SERVICES HN LAB POC COMMENT (GLUCOSE) Test Performed by Nursing Services 10/27/2021 13:26 EDT [facility] Blood CAPILLARY BLOOD / Unknown 10/27/2021 13:22 EDT 10/27/2021 13:26 EDT Gissel Nunez MD MPH POINT OF CARE TEST ORDERABLES Performing Organization Address [facility]/State/ZIP Co de Phone Number [facility] [address] [place] [address] documented in this encounter Visit Diagnoses Diagnosis Pancreatitis, gallstone- Primary Acute pancreatitis Pancreatitis, gallstone Acute pancreatitis Cholangitis Calculus of gallbladder and bile duct with obstruction without cholecystitis Liver cirrhosis secondary to nonalcoholic steatohepatitis ([place]CHE[place]) (HCC-CMS) Calculus of gallbladder and bile duct without cholecystitis Calculus of gallbladder and bile duct without cholecystitis, without mention of obstruction documented in this encounter Admitting Diagnoses Diagnosis Pancreatitis, gallstone Acute pancreatitis documented in this encounter Administered Medications Inactive Administered Medications - up to 3 most recent administrations Medication Order MAR Action Action Date Dose Rate Site acetaminophen (TYLENOL) tablet 500 mg 500 mg, oral, EVERY 6 HOURS PRN, Starting on Thu10/27/21 at 1102, Until Thu11/04/21 at 1751, Pain, Fever, Routine Given 11/03/2021 4:40 EDT 500 mg Given 11/02/2021 20:58 EDT 500 mg Given 11/02/2021 13:38 EDT 500 mg budesonide-formoterol HFA (SYMBICORT) 160-4.5 mcg/actuation inhaler 2 Puff 2 Puff, inhalation, 2 TIMES DAILY PRN, Starting on Thu10/27/21 at 1343, Until Thu11/04/21 at 1751, Shortness of Breath Given 10/27/2021 16:36 EDT 2 Puffs busPIRone (BUSPAR) tablet 10 mg 10 mg, oral, 3 TIMES DAILY, First dose on Thu10/31/21 at 1400, Until Discontinued, Routine Given 11/04/2021 14:17 EDT 10 mg Given 11/04/2021 8:55 EDT 10 mg Given 11/02/2021 20:57 EDT 10 mg cefTRIAXone (ROCEPHIN) 1,000 mg in sodium chloride (NS MBP) 50 mL IVPB 1,000 mg, intravenous, Administer over 30 Minutes, EVERY 24 HOURS, 10 doses, First dose on Thu10/27/21 at 1500, Last dose on Thu11/05/21 at 1500, Type of Therapy: Empiric, Suspected Indication (Select all that apply): Cholangitis, ID Consult: No, Routine Given 10/30/2021 16:23 EDT 1,000 mg Given 10/29/2021 15:17 EDT 1,000 mg Given 10/28/2021 14:58 EDT 1,000 mg dextrose 5 % and 0.45 % NaCl with KCl 20 mEq/L infusion at 75 mL/hr, 1,000 mL, intravenous, CONTINUOUS, Starting on Thu10/30/21 at 0715, Until Thu10/30/21 at 1217, Routine New Bag 10/30/2021 7:00 EDT 1,000 mL 75 mL/hr dextrose 5 % in lactated ringers infusion at 75 mL/hr, 2,000 mL, intravenous, CONTINUOUS, Starting on Thu10/28/21 at 1500, Until Thu10/29/21 at 1217, Routine Rate Documented 10/28/2021 19:47 EDT 75 mL/hr New Bag 10/28/2021 14:57 EDT 2,000 mL 75 mL/hr dextrose 50 % solution 12.5 g 12.5 g (25 mL), intravenous, PRN, Starting on 11/02/21 at 0601, Until Thu11/04/21 at 1751, Low Blood Sugar, Routine diphenhydrAMINE (BENADRYL) capsule 25 mg 25 mg, oral, EVERY 12 HOURS PRN, Starting on Thu10/29/21 at 2013, Until Thu10/30/21 at 1610, Itching, Routine Given 10/29/2021 20:52 EDT 25 mg fentaNYL citrate (PF) injection 25-50 mcg 25-50 mcg, intravenous, EVERY 5 MIN PRN, Starting on Thu11/03/21 at 2122, Until Thu11/04/21 at 0010, Pain, Routine, Recovery (only) Given 11/03/2021 2 3:10 EDT 50 mcg Given 11/03/2021 21:58 EDT 50 mcg glucagon injection 1 mg 1 mg, intramuscular, PRN, Starting on 11/02/21 at 0602, Until Thu11/04/21 at 1751, Other, Low blood sugar, Routine guaiFENesin (MUCINEX) SR tablet 600 mg 600 mg, oral, 2 TIMES DAILY, First dose on Thu10/29/21 at 0930, Until Discontinued, Routine Given 11/04/2021 8:55 EDT 600 mg Given 11/02/2021 20:57 EDT 600 mg Given 11/02/2021 8:19 EDT 600 mg heparin injection 5,000 Units 5,000 Units, subcutaneous, EVERY 8 HOURS, 2 doses, First dose on Thu10/31/21 at 1900, Last dose on Thu11/01/21 at 0600, Routine Given 11/01/2021 6:18 EDT 5,000 Units Given 10/31/2021 21:33 EDT 5,000 Units heparin injection 5,000 Units 5,000 Units, subcutaneous, EVERY 8 HOURS, 2 doses, First dose (after last reorder) on 11/02/21 at 1400, Last dose on Thu11/02/21 at 2200, Routine Given 11/02/2021 13:25 EDT 5,000 Units heparin injection 5,000 Units 5,000 Units, subcutaneous, EVERY 8 HOURS, First dose (after last reorder) on Thu11/04/21 at 0600, Until Discontinued, Routine Given 11/04/2021 14:17 EDT 5,000 Units Given 11/04/2021 5:36 EDT 5,000 Units hydrocortisone 1 % lotion topical, 4 TIMES DAILY PRN, Starting on Thu10/29/21 at 2014, Until Thu11/04/21 at 1751, Itching HYDROmorphone (DILAUDID) tablet 2-4 mg 2-4 mg, oral, EVERY 30 MINUTES PRN, 2 doses, Starting on Thu11/03/21 at 2122, Until Thu11/04/21 at 0010, Pain, Routine, Recovery (only) Given 11/03/2021 23:08 EDT 4 mg HYDROmorphone (DILAUDID) tablet 4 mg 4 mg, oral, NOW X1, 1 dose, On Thu10/31/21 at 0845, Routine Given 10/31/2021 8:53 EDT 4 mg HYDROmorphone (PF) (DILAUDID) 0.5 mg/0.5 mL syringe 0.3-0.5 mg 0.3-0.5 mg, intravenous, EVERY 10 MINUTES PRN, Starting on Thu11/03/21 at 2122, Until Thu11/04/21 at 0010, Pain, Routine, Recovery (only) Given 11/03/2021 21:59 EDT 0.5 mg HYDROmorphone (PF) (DILAUDID) 0.5 mg/0.5 mL syringe 0.5 mg 0.5 mg, intravenous, EVERY 4 HOURS PRN, Starting on Thu10/27/21 at 1135, Until Thu10/27/21 at 1348, Pain, Routine Given 10/27/2021 12:10 EDT 0.5 mg HYDROmorphone (PF) (DILAUDID) 0.5 mg/0.5 mL syringe 0.75 mg 0.75 mg, intravenous, EVERY 4 HOURS PRN, Starting on Thu10/27/21 at 1348, Until Thu10/28/21 at 1311, Pain, Routine Given 10/28/2021 10:06 EDT 0.75 mg Given 10/28/2021 5:53 EDT 0.75 mg Given 10/28/2021 0:33 EDT 0.75 mg HYDROmorphone (PF) (DILAUDID) 0.5 mg/0.5 mL syringe 1 mg 1 mg, intravenous, EVERY 4 HOURS PRN, Starting on Thu10/28/21 at 1311, Until [place] 10/31/21 at 0820, Pain, Routine Given 10/31/2021 1:32 EDT 1 mg Given 10/30/2021 20:24 EDT 1 mg Given 10/30/2021 5:51 EDT 1 mg indomethacin (INDOCIN) rectal suppository suppository PRN, Starting on Thu10/30/21 at 1335, Until Thu10/30/21 at 1335, Routine Given 10/30/2021 13:35 EDT 100 mg insulin aspart U-100 (NOVOLOG FLEXPEN) injection subcutaneous, EVERY 6 HOURS, First dose on Thu10/27/21 at 1330, Until Discontinued, Routine, Indications: SUPPLEMENTAL INSULIN Given 10/30/2021 0:00 EDT 5 Units Given 10/27/2021 13:23 EDT 2 Units insulin aspart U-100 (NOVOLOG FLEXPEN) injection subcutaneous, 3 TIMES DAILY WITH MEALS, First dose on Thu10/30/21 at 1900, Until Discontinued, Routine Given 11/01/2021 18:09 EDT 5 Units Given 11/01/2021 9:23 EDT 1 Units Given 10/31/2021 12:56 EDT 2 Units insulin aspart U-100 (NOVOLOG FLEXPEN) injection subcutaneous, EVERY 6 HOURS, First dose on Thu11/02/21 at 0630, Until Discontinued, Routine, Indications: SUPPLEMENTAL INSULIN Given 11/03/2021 0:33 EDT 3 Units insulin aspart U-100 (NOVOLOG FLEXPEN) injection subcutaneous, 3 TIMES DAILY WITH MEALS, First dose on Thu11/04/21 at 0800, Until Discontinued, Routine Given 11/04/2021 12:44 EDT 2 Units Given 11/04/2021 8:55 EDT 2 Units lactated ringers (LR) infusion at 125 mL/hr, 2,000 mL, intravenous, CONTINUOUS, Starting on Thu10/27/21 at 1130, Until Thu10/28/21 at 0337, Routine New Bag 10/27/2021 21:40 EDT 1,000 mL 125 mL/hr New Bag 10/27/2021 11:38 EDT 2,000 mL 125 mL/hr lactated ringers (LR) infusion at 125 mL/hr, 2,000 mL, intravenous, CONTINUOUS, Starting on Thu10/28/21 at 0745, Until Thu10/28/21 at 1340, Routine New Bag 10/28/2021 7:44 EDT 2,000 mL 125 mL/hr lactated ringers (LR) infusion at 75 mL/hr, 500 mL, intravenous, CONTINUOUS, Starting on Thu10/30/21 at 0130, Until Thu10/30/21 at 0755, Routine New Bag 10/30/2021 1:16 EDT 500 mL 75 mL/hr lactated ringers (LR) infusion at 75 mL/hr, intravenous, PACU CONTINUOUS, Starting on Thu11/03/21 at 2145, Until Thu11/04/21 at 0010, Routine, Recovery (only) New Bag 11/03/2021 22:42 EDT 75 mL/hr lamoTRIgine (LAMICTAL) tablet 100 mg 100 mg, oral, DAILY, First dose (after last reorder) on Thu11/04/21 at 0900, Until Discontinued, Routine Given 11/04/2021 8:55 EDT 100 mg lidocaine 5 % (LIDODERM) patch 1 Patch 1 Patch, transdermal, Administer over 12 Hours, DAILY, First dose on Thu10/27/21 at 1630, Until Discontinued, Routine Patch Applied 11/02/2021 16:16 EDT 1 Patch Left Chest Patch Applied 11/01/2021 15:45 EDT 1 Patch L eft Thigh Patch Applied 10/31/2021 16:55 EDT 1 Patch L eft Chest methocarbamoL (ROBAXIN) tablet 500 mg 500 mg, oral, 3 TIMES DAILY, First dose on Thu11/04/21 at 0900, Until Discontinued, Routine Given 11/04/2021 14:17 EDT 5 00 mg Given 11/04/2021 8:55 EDT 500 mg metroNIDAZOLE (FLAGYL) tablet 500 mg 500 mg, oral, EVERY 8 HOURS, 30 doses, First dose on Thu10/27/21 at 1600, Last dose on Thu11/06/21 at 0800, Routine Given 10/31/2021 8:53 EDT 500 mg Given 10/31/2021 1:14 EDT 500 mg Given 10/30/2021 16:23 EDT 500 mg ondansetron (PF) (ZOFRAN) injection 4 mg 4 mg, intravenous, EVERY 4 HOURS PRN, Starting on Thu10/27/21 at 1133, Until Thu11/04/21 at 1751, Nausea, Vomiting, Routine Given 10/28/2021 5:53 EDT 4 mg Given 10/28/2021 1:18 EDT 4 mg ondansetron (PF) (ZOFRAN) injection 4 mg 4 mg, intravenous, PRN, 1 dose, Starting on Thu11/03/21 at 2122, Until Thu11/03/21 at 2244, Nausea, Vomiting, Routine, Recovery (only) Given 11/03/2021 22:44 EDT 4 m g ondansetron (ZOFRAN-ODT) disintegrating tablet 4 mg 4 mg, oral, EVERY 4 HOURS PRN, Starting on Thu10/27/21 at 1133, Until Thu11/04/21 at 1751, Nausea, Routine Given 10/29/2021 20:52 EDT 4 mg Given 10/27/2021 19:34 EDT 4 mg oxyCODONE (ROXICODONE) immediate release tablet 5-10 mg 5-10 mg, oral, EVERY 4 HOURS PRN, Starting on Thu11/04/21 at 0014, Until Thu11/04/21 at 1751, Moderate Pain 4-6, Severe Pain 7-10, Routine Given 11/04/2021 11:18 EDT 5 mg Given 11/04/2021 4:31 EDT 10 mg pantoprazole (PROTONIX) tablet 40 mg 40 mg, oral, DAILY BEFORE BREAKFAST, First dose on Thu10/28/21 at 0730, Until Discontinued, Routine Given 11/04/2021 6:47 EDT 40 mg Given 11/02/2021 8:19 EDT 40 mg Given 11/01/2021 6:45 EDT 40 mg potassium chloride SA (K-DUR) tablet 40 mEq 40 mEq, oral, NOW X1, 1 dose, On Thu10/28/21 at 1030, Routine Given 10/28/2021 10:42 EDT 40 mEq potassium chloride SA (K-DUR) tablet 40 mEq 40 mEq, oral, NOW X1, 1 dose, On Thu10/29/21 at 0930, Routine Given 10/29/2021 9:36 EDT 40 mEq sertraline (ZOLOFT) tablet 100 mg 100 mg, oral, DAILY, First dose on Thu10/31/21 at 1215, Until Discontinued, Routine Given 11/02/2021 20:57 EDT 100 mg Given 11/01/2021 20:12 EDT 100 mg sodium chloride 0.9 % (flush) flush 5 mL 5 mL, intravenous, EVERY 8 HOURS, First dose on Thu10/30/21 at 1600, Until Discontinued, Routine, Preprocedure Given 10/30/2021 16:24 EDT 5 mL documented in this encounter Discontinued Medications Medication Sig Discontinue Reason Start Date End Da te carvedilol (COREG) 12.5 mg tablet Take 12.5 mg by mouth daily. Alternate therapy 10/28/2021 naltrexone (REVIA) 50 mg tablet Take 50 mg by mouth daily. Alternate therapy 10/31/2021 polyethylene glycol (GOLYTELY;NULYTELY) 236-22.74-6.74 -5.86 gram suspension Instructions mailed once procedure scheduled. Questions: [facility]: [phone] or GI Doctor's Office. Therapy completed 04/05/2015 10/31/2021 potassium (POTASSIMIN ORAL) Take by mouth. Patient Stopped Taking 10/31/2021 pantoprazole (PROTONIX) 40 mg tablet Take 1 Tab by mouth BEFORE BREAKFAST & DINNER Reorder 05/23/2015 11/04/2021 lamoTRIgine (LAMICTAL) 100 mg tablet Take 100 mg by mouth 2 times daily. Reorder 11/04/2021 chlorthalidone (HYGROTON) 25 mg tablet Take 25 mg by mouth daily. 11/04/2021 oxyCODONE (ROXICODONE) 5 mg immediate release tablet Take 5 mg by mouth every 8 hours as needed for Pain. 11/04/2021 documented as of this encounter Historical Medications * This list may reflect changes made after this encounter. Medication Sig Dispensed Refills Start Date End Date busPIRone (BUSPAR) 10 mg tablet Take 10 mg by mouth 3 times daily. empagliflozin (JARDIANCE) 10 mg tablet Take 1 Tablet by mouth daily. methocarbamoL (ROBAXIN) 500 mg tablet Take 500 mg by mouth 3 times daily. 11/29/2021 oxyCODONE (ROXICODONE) 5 mg immediate release tablet Take 5 mg by mouth every 8 hours as needed for Pain. 11/04/2021 lamoTRIgine (LAMICTAL) 100 mg tablet Take 100 mg by mouth 2 times daily. 11/04/2021 added in this encounter Active and Recently Administered Medications Times are shown in EDT. Scheduled Medication Order 11/02/2021 11/03/2021 11/04/2021 busPIRone (BUSPAR) tablet 10 mg 10 mg, oral, 3 TIMES DAILY, First dose on Patria 10/31/21 at 1400, Until Discontinued, Routine 0819 (Given - Provider: Arielle Gillette RN)1325 (Given - Provider: Arielle Gillette RN)2057 (Given - Provider: Devante Barajas RN) 0824 (Not Given - Provider: Arielle Gillette RN - Reason: NPO - Comment: NPO for possible cholecystectomy today)1352 (Not Given - Provider: Arielle Gillette RN - Reason: NPO - Comment: NPO for cholecystectomy today)1956 (MAR Hold - Provider: Automatic Transfer Provider Hn - Reason: Patient off unit)2100 (Not Given - Provider: Devante Barajas RN - Reason: Other - Comment: Pt in OR) 0010 (MAR Unhold - Provider: Automatic Transfer Provider Hn)0855 (Given - Provider: Negrito Sanchez RN)1417 (Given - Provider: Negrito Sanchez RN) guaiFENesin (MUCINEX) SR tablet 600 mg 600 mg, oral, 2 TIMES DAILY, First dose on Thu10/29/21 at 0930, Until Discontinued, Routine 0819 (Given - Provider: Arielle Gillette RN)2056 (Given - Provider: Devante Barajas RN) 0824 (Not Given - Provider: Arielle Gillette RN - Reason: NPO - Comment: NPO for possible cholecystectomy today)1955 ([facility] Hold - Provider: Automatic Transfer Provider Hn - Reason: Patient off unit)2100 (Not Given - Provider: Devante Barajas RN - Reason: Other - Comment: Pt in OR) 0010 ([facility] Unhold - Provider: Automatic Transfer Provider Hn)0855 (Given - Provider: Negrito Sanchez RN) heparin injection 5,000 Units () 5,000 Units, subcutaneous, EVERY 8 HOURS, 2 doses, First dose (after last reorder) on 11/02/21 at 1400, Last dose on 11/02/21 at 2200, Routine 1325 (Given - Provider: Arielle Gillette RN)2200 (Hold - Provider: Devante Barajas RN - Reason: Other - Comment: Possible provedure 11/03) heparin injection 5,000 Units 5,000 Units, subcutaneous, EVERY 8 HOURS, First dose (after last reorder) on Thu11/04/21 at 0600, Until Discontinued, Routine 0536 (Given - Provider: Devante Barajas RN)1417 (Given - Provider: Negrito Sanchez, DEQUAN) insulin aspart U-100 (NOVOLOG FLEXPEN) injection (CANCELED) subcutaneous, EVERY 6 HOURS, First dose on 11/02/21 at 0630, Until Discontinued, Routine, Indications: SUPPLEMENTAL INSULIN 0648 (Not Given - Provider: Cinthia Garcia RN - Reason: Order parameters not met - Comment: bg 137)1323 (Not Given - Provider: Arielle Gillette RN - Reason: Patient/family refused - Comment: Pt had already started eating and feels it brought blood sugar level up)1738 (Not Given - Provider: Arielle Gillette RN - Reason: Order parameters not met - Comment: Blood sugar 108) 0033 (Given - Provider: Devante Barajas RN - Comment: FSBG 184)0610 (Not Given - Provider: Devante Barajas RN - Reason: Order parameters not met - Comment: FSBG 116 mg/dL)1153 (Not Given - Provider: Arielle Gillette RN - Reason: Order parameters not met - Comment: Blood sugar 110)1758 (Not Given - Provider: Arielle Gillette RN - Reason: Order parameters not met - Comment: Blood sugar 75)1956 (MAR Hold - Provider: Automatic Transfer Provider Hn - Reason: Patient off unit) 0000 (Not Given - Provider: Devante Barajas RN - Reason: Other - Comment: Pt in OR)0010 (MAR Unhold - Provider: Automatic Transfer Provider Hn) insulin aspart U-100 (NOVOLOG FLEXPEN) injection subcutaneous, 3 TIMES DAILY WITH MEALS, First dose on Thu11/04/21 at 0800, Until Discontinued, Routine 0855 (Given - Provider: Negrito Sanchez RN - Comment: bs 151)1244 (Given - Provider: Negrito Sanchez RN)1700 (Canceled Entry - Provider: Batch Job User Admin - Comment: Automatically canceled at discontinue of medication order) insulin aspart U-100 (NOVOLOG FLEXPEN) injection subcutaneous, AT BEDTIME, First dose on Thu11/04/21 at 0030, Until Discontinued, Routine 0016 (Not Given - Provider: Devante Barajas RN - Reason: Order parameters not met - Comment: FSG 131 mg/dL) lamoTRIgine (LAMICTAL) tablet 100 mg 100 mg, oral, DAILY, First dose (after last reorder) on Thu11/04/21 at 0900, Until Discontinued, Routine 0855 (Given - Provider: Negrito Sanchez RN) lidocaine 5 % (LIDODERM) patch 1 Patch 1 Patch, transdermal, Administer over 12 Hours, DAILY, First dose on Thu10/27/21 at 1630, Until Discontinued, Routine 0247 (Patch Removed - Provider: Cinthia Garcia RN)1616 (Patch Applied - Provider: Arielle Gillette RN - Comment: Left Rib area) 0439 (Patch Removed - Provider: Devante Barajas RN)1632 (Not Given - Provider: Arielle Gillette RN - Reason: Patient/family refused - Comment: Pt refuses because he would have to take it off for cholecystectomy)1955 ([facility] Hold - Provider: Automatic Transfer Provider Hn - Reason: Patient off unit) 9 ([facility] Unhold - Provider: Automatic Transfer Provider Hn)163 (Canceled Entry - Provider: Batch Job User Admin - Comment: Automatically canceled at discontinue of medication order) methocarbamoL (ROBAXIN) tablet 500 mg 500 mg, oral, 3 TIMES DAILY, First dose on Thu11/04/21 at 0900, Until Discontinued, Routine 0855 (Given - Provider: Negrito Sanchez RN)1417 (Given - Provider: Negrito Sanchez RN) pantoprazole (PROTONIX) tablet 40 mg 40 mg, oral, DAILY BEFORE BREAKFAST, First dose on Thu10/28/21 at 0730, Until Discontinued, Routine 0819 (Given - Provider: Arielle Gillette RN) 0648 (Not Given - Provider: Devante Barajas RN - Reason: NPO)1955 ([facility] Hold - Provider: Automatic Transfer Provider Hn - Reason: Patient off unit) 9 (SEP Unhold - Provider: Automatic Transfer Provider Hn)0647 (Given - Provider: Devante Barajas RN) sertraline (ZOLOFT) tablet 100 mg 100 mg, oral, DAILY, First dose on Patria 10/31/21 at 1215, Until Discontinued, Routine 2056 (Given - Provider: Devante Barajas RN) 1955 ([facility] Hold - Provider: Automatic Transfer Provider Hn - Reason: Patient off unit)2100 (Not Given - Provider: Devante Barajas RN - Reason: Other - Comment: Pt in OR) 001 ([facility] Unhold - Provider: Automatic Transfer Provider Hn) Continuous Medication Order 11/02/2021 11/03/2021 11/04/2021 lactated ringers (LR) infusion (CANCELED) at 75 mL/hr, intravenous, PACU CONTINUOUS, Starting on Thu11/03/21 at 2145, Until 11/04/21 at 0010, Routine, Recovery (only) 2139 (Continued Infusion - Provider: Savannah Mclean, DEQUAN)2241 (New Bag - Provider: Savannah Mclean, DEQUAN)2330 (Completed - Provider: Savannah Mclean, DEQUAN) PRN Medication Order 11/02/2021 11/03/2021 11/04/2021 acetaminophen (TYLENOL) tablet 500 mg 500 mg, oral, EVERY 6 HOURS PRN, Starting on 10/27/21 at 1102, Until 11/04/21 at 1751, Pain, Fever, Routine 0645 (Given - Provider: Cinthia Garcia, DEQUAN)1338 (Given - Provider: Arielle Gillette RN)2057 (Given - Provider: Devante Barajas RN - Comment: RUQ abdomen) 0440 (Given - Provider: Devante Barajas RN)1955 (MAR Hold - Provider: Automatic Transfer Provider Hn - Reason: Patient off unit) 001 (MAR Unhold - Provider: Automatic Transfer Provider Hn) budesonide-formoterol HFA (SYMBICORT) 160-4.5 mcg/actuation inhaler 2 Puff 2 Puff, inhalation, 2 TIMES DAILY PRN, Starting on 10/27/21 at 1343, Until 11/04/21 at 1751, Shortness of Breath 1955 (MAR Hold - Provider: Automatic Transfer Provider Hn - Reason: Patient off unit) 001 (MAR Unhold - Provider: Automatic Transfer Provider Hn) bupivacaine (PF) (MARCAINE) 0.5% injection (CANCELED) PRN, Starting on 11/03/21 at 2107, Until 11/03/21 at 2129, Routine, Intraprocedure 2106 (Given - Provider: Adrien Chapman MD) dextrose 50 % solution 12.5 g 12.5 g (25 mL), intravenous, PRN, Starting on 11/02/21 at 0601, Until 11/04/21 at 1751, Low Blood Sugar, Routine 1955 (MAR Hold - Provider: Automatic Transfer Provider Hn - Reason: Patient off unit) 001 (MAR Unhold - Provider: Automatic Transfer Provider Hn) fentaNYL citrate (PF) injection 25-50 mcg (CANCELED) 25-50 mcg, intravenous, EVERY 5 MIN PRN, Starting on 11/03/21 at 2122, Until Thu11/04/21 at 0010, Pain, Routine, Recovery (only) 2157 (Given - Provider: Savannah Mclean RN)2309 (Given - Provider: Savannah Mclean RN) glucagon injection 1 mg 1 mg, intramuscular, PRN, Starting on 11/02/21 at 0602, Until Thu11/04/21 at 1751, Other, Low blood sugar, Routine 1955 ([facility] Hold - Provider: Automatic Transfer Provider Hn - Reason: Patient off unit) 9 ([facility] Unhold - Provider: Automatic Transfer Provider Hn) hydrocortisone 1 % lotion topical, 4 TIMES DAILY PRN, Starting on 10/29/21 at 2014, Until Thu11/04/21 at 1751, Itching 1955 ([facility] Hold - Provider: Automatic Transfer Provider Hn - Reason: Patient off unit) 9 ([facility] Unhold - Provider: Automatic Transfer Provider Hn) HYDROmorphone (DILAUDID) tablet 2-4 mg (CANCELED) 2-4 mg, oral, EVERY 30 MINUTES PRN, 2 doses, Starting on 11/03/21 at 2122, Until Thu11/04/21 at 0010, Pain, Routine, Recovery (only) 2307 (Given - Provider: Savannah Mclean RN) HYDROmorphone (PF) (DILAUDID) 0.5 mg/0.5 mL syringe 0.3-0.5 mg (CANCELED) 0.3-0.5 mg, intravenous, EVERY 10 MINUTES PRN, Starting on 11/03/21 at 2122, Until Thu11/04/21 at 0010, Pain, Routine, Recovery (only) 2158 (Given - Provider: Savannah Mclean RN) ondansetron (PF) (ZOFRAN) injection 4 mg(Linked Group 1) 4 mg, intravenous, EVERY 4 HOURS PRN, Starting on 10/27/21 at 1133, Until Thu11/04/21 at 1751, Nausea, Vomiting, Routine 1955 ([facility] Hold - Provider: Automatic Transfer Provider Hn - Reason: Patient off unit) 9 ([facility] Unhold - Provider: Automatic Transfer Provider Hn) ondansetron (PF) (ZOFRAN) injection 4 mg (COMPLETED) 4 mg, intravenous, PRN, 1 dose, Starting on 11/03/21 at 2122, Until 11/03/21 at 2244, Nausea, Vomiting, Routine, Recovery (only) 2243 (Given - Provider: Savannah Mclean, DEQUAN) ondansetron (ZOFRAN-ODT) disintegrating tablet 4 mg(Linked Group 1) 4 mg, oral, EVERY 4 HOURS PRN, Starting on 10/27/21 at 1133, Until 11/04/21 at 1751, Nausea, Routine 1955 ([facility] Hold - Provider: Automatic Transfer Provider Hn - Reason: Patient off unit) 9 ([facility] Unhold - Provider: Automatic Transfer Provider Hn) oxyCODONE (ROXICODONE) immediate release tablet 5-10 mg 5-10 mg, oral, EVERY 4 HOURS PRN, Starting on 11/04/21 at 0014, Until Thu11/04/21 at 1751, Moderate Pain 4-6, Severe Pain 7-10, Routine 0431 (Given - Provider: Devante Barajas, DEQUAN - Comment: Surgical site)1118 (Given - Provider: Negrito Sanchez, DEQUAN) polyethylene glycol 3350 (MIRALAX) packet 17 g 17 g, oral, DAILY PRN, Starting on 10/27/21 at 1102, Until 11/04/21 at 1751, Constipation, Routine 1955 ([facility] Hold - Provider: Automatic Transfer Provider Hn - Reason: Patient off unit) 9 ([facility] Unhold - Provider: Automatic Transfer Provider Hn) ramelteon (ROZEREM) tablet 8 mg 8 mg, oral, AT BEDTIME PRN, Starting on 10/27/21 at 1102, Until 11/04/21 at 1751, Sleep, Routine 1955 ([facility] Hold - Provider: Automatic Transfer Provider Hn - Reason: Patient off unit) 9 ([facility] Unhold - Provider: Automatic Transfer Provider Hn) sodium chloride 0.9 % irrigation (CANCELED) PRN, Starting on 11/03/21 at 2031, Until 11/03/21 at 212, Routine, Intraprocedure 2031 (Given - Provider: Adrien Chapman MD)2058 (Given - Provider: Adrien Chapman MD) Linked Groups Order Group 1: ondansetron (ZOFRAN-ODT) disintegrating tablet 4 mgJump to med 4 mg, oral, EVERY 4 HOURS PRN, Starting on 10/27/21 at 1133, Until 11/04/21 at 1751, Nausea, Routine Or ondansetron (PF) (ZOFRAN) injection 4 mgJump to med 4 mg, intravenous, EVERY 4 HOURS PRN, Starting on 10/27/21 at 1133, Until 11/04/21 at 1751, Nausea, Vomiting, Routine documented in this encounter Orders Medications Ordered That Surendra ht Not Have Been Administered Count Last Ordered Date First Ordered Date insulin aspart U-100 (NOVOLO G FLEXPEN) injection 3 11/04/2021 10/30/2021 atropine 0.1 mg/mL syringe 0.5 mg 2 022 10/30/2021 bupivacaine (PF) (MARCAINE) 0.5% injection 1 11/03/2021 diphenhydrAMINE (BENADRYL) i njection 12.5 mg 2 11/03/2021 10/30/2021 metoclopramide (REGLAN) injection 10 mg 2 0 11/03/2021 10/30/2021 naloxone (NARCAN) injection 0.2 mg 2 202110/30/2021 sodium chloride 0.9 % irrigation 1 11/04/19 dextrose 50 % solution 12.5 g 2 11/02/2021 10/27/2021 glucagon injection 1 mg 2 11/02/2021 04/0 09/2021 enoxaparin (LOVENOX) injection 40 mg 3 01/202210/27/2021 acetaminophen (TYLENOL) solu tion unit dose cup 995 mg 1 10/30/2021 acetaminophen (TYLENOL) tablet 1,000 mg 1 0 10/30/2021 dextrose 5 % and 0.225 % NaCl infusion 1 diphenhydrAMINE (BENADRYL) injection 25 mg 2 10/30/2021 fentaNYL citrate (PF) injection 25-50 mcg 1 10/30/2021 HYDROmorphone (PF) (DILAUDID ) 0.5 mg/0.5 mL syringe 0.3-0.5 mg 1 10/30/2021 lactated ringers (LR) infusion 5 10/30/2021 10/27/2021 lidocaine (PF) 10 mg/mL (1 % ) injection 2 mg 5 10/30/2021 10/27/2021 sodium chloride 0.9 % (flush) flush 3 mL 2 10/30/2021 sodium chloride 0.9 % (flush) flush 5 mL 1 10/30/2021 sodium chloride 0.9 % (NS) infusion 2 10/30 dextrose 5 % and 0.45 % NaCl with KCl 20 mEq/L infusion 1 10/29/2021 dextrose 5 % in lactated ringers infusion 2 10/29/2021 10/28/2021 hydrocortisone 1 % lotion 1 10/29/2021 acamprosate (CAMPRAL) tablet 333 mg 1 10/27 acamprosate (CAMPRAL) tablet 666 mg 2 10/27 budesonide-formoterol HFA (S YMBICORT) 160-4.5 mcg/actuation inhaler 1 Puff 1 10/27/2021 lamoTRIgine (LAMICTAL) tablet 100 mg 2 09/2021 polyethylene glycol 3350 (AL RALAX) packet 17 g 1 10/27/2021 ramelteon (ROZEREM) tablet 8 mg 1 senna (SENOKOT) tablet 2 Tablet 1 2 Diet Count Last Ordered Date First Orde red Date DISCHARGE DIET 1 11/04/2021 Nursing Count Last Ordered Date First Orde red Date ACTIVITY INSTRUCTIONS 1 11/04/2021 WOUND CARE INSTRUCTIONS 1 11/04/2021 APPLY WARMING BLANKET 1 11/03/[address]21 PLACE SEQUENTIAL COMPRESSION DEVICE 1 11/03 VITAL SIGNS 2 10/30/2021 10/27/2021 IV Count Last Ordered Date First Orde red Date IV REQUEST 5 10/30/2021 10/27/2021 Admission Count Last Ordered Date First Orde red Date ADMIT TO INPATIENT 1 10/27/2021 Discharge Count Last Ordered Date First Orde red Date DISCHARGE PATIENT 1 11/04/2021 Legal Count Last Ordered Date First Orde red Date MISCELLANEOUS DISCHARGE INSTRUCTIONS 1 10/25 Case Request Count Last Ordered Date First Orde red Date CASE REQUEST OPERATING ROOM 1 10/31/2021 documented in this encounter Care Teams Golf Player Assistant Relationship Specialty Start Date End Date Tristan Collins MD PCP - General 06/26/11 05/12/23 documented as of this encounter
--- OUTSIDE RECORDS SUMMARY | 2024-02-29 08:18 | XMS_ITS | Encounter Summary ---
Author Organization [facility] Address [address] [place] [address] Care Team Providers Care Drawing Instructor Name Role Phone Tristan Collins MD Primary Care Provider Unav ailable Reason for Visit * Reason Onset Date Comments DME 11/29/2021 Encounter Details Date Type Department Care Team (Late st Contact Info) Description 11/29/2021 Telephone [facility] Sleep Program - [address] [place], [place] [phone] Марина Tsai NP 1 [facility] [address] [place] [address] DME Social History Tobacco Use Types Packs/Day [...] Recorded In the last 10 days, have yo u been in contact with someone who was confirmed or suspected to have Coronavirus/COVID-19? No / Unsure 10/30/2021 12:29 EDT documented as of this encounter Functional Status [...] encounter Miscellaneous Notes * Telephone Encounter - Alley Simon - 11/29/2021 1542 EDT Patient called to speak with Nurse Emilia. He said he was returning a call. Not using CPAP due to Tamra recall. It has been a year since last use. Lyubov is DME Scheduled 1 year FUR televideo with ES for next available date of January 24. Added to waitlist in case of sooner date. Routed to Sleep Nurse to call back to check in documented in this encounter Plan of Treatment Not on file documented as of this encounter Visit Diagnoses Not on filedocumented in this encounter Care Teams Drawing Instructor Relationship Specialty Start Date End Date Tristan Collins MD PCP - General 06/26/11 05/12/23 documented as of this encounter
--- OUTSIDE RECORDS SUMMARY | 2024-02-29 08:18 | XMS_ITS | Encounter Summary ---
Author Organization [facility] Address [address] [place] [address] Care Team Providers Care Distribution Warehouse Manager Name Role Phone Tristan Collins MD Primary Care Provider Unav ailable Reason for Visit * Reason Onset Date Comments DME 09/09/2022 Encounter Details Date Type Department Care Team (Late st Contact Info) Description 09/09/2022 Telephone [facility] Sleep Program - [address] [place], [place] [id number] Sleep, Tech [address], [place] [id number] DME Social History Tobacco Use Types Packs/Day [...] * Telephone Encounter - Lupe Carlson - 09/09/2022 1142 EST LMOM asking pt if he has received his PAP supplies and if he has started using PAP again. Asked pt to call back to confirm. documented in this encounter Plan of Treatment Not on file documented as of this encounter Visit Diagnoses Not on filedocumented in this encounter Care Teams Distribution Warehouse Manager Relationship Specialty Start Date End Date Tristan Collins MD PCP - General 06/26/11 05/12/23 documented as of this encounter
--- OUTSIDE RECORDS SUMMARY | 2024-02-29 08:18 | XMS_ITS | Encounter Summary ---
Author Organization [facility] Address [address] [place] [address] Care Team Providers Care Consultant Education Name Role Phone Tristan Collins MD Primary Care Provider Unav ailable Reason for Visit * Reason Onset Date Comments Hospital Discharge Follow Up 11/06/2021 Encounter Details Date Type Department Care Team (Late st Contact Info) Description 11/06/2021 Telephone [facility] Acute Care Surgery - [facility] [address] [place] [address] Vanita Babin, INDU Hospital Discharge Follow Up Social History Tobacco Use Types Packs/Day Years [...] encounter Miscellaneous Notes * Telephone Encounter - Vanita Babin RN - 11/06/2021 1031 EDT ACS/Trauma/Burn Hospital Discharge Call Patient Name: Yasmani Glaser , : 1970 Admission Date: 10/27/21 Date of Discharge: 11/04/21 Admission Diagnosis: calculus of gallbladder and bile duct obstruction Surgeon/Attending: Dr. Chapman Procedure Date: 11/03/21 Type of Procedure: lap amauri Trauma: No Wound and/or Incisions: Yes healing well Comments: a little black n blue Home Health?:no Agency:n/a Restrictions: No Driving while on Narcotics No Lifting/Pulling/Pushing greater than 15 lbs for 2 weeks It is ok to shower, wash gently and pat area dry Please no pools, lakes, tubs or hot tubs for 2 weeks Other: Recovery at Home: Fevers since home greater than 101.5?:No Pain: Yes 7, just came back from appointment, so a little higher than normal per pt relaxation and pain medication Encouraged him to ice his incisions Pain Management: Yes Taking: oxy and tylenol Medication Reconciliation: Reviewed with Patient Yes Any Discrepancies?Yes Comments/Concerns:cleaned up old outside medications BM's & Voiding Issues:No Normal Comments: Bowel Meds: No Comments: Issues with ADL's: No Assistive Device: No Eating & Drinking ok?: Yes Comments: Eating very light, but eating Drinking well per patient Sleeping ok?:Yes. Getting enough rest, hard to get comfortable Any Other Questions or Concerns: seeing his PCP today Hospital Discharge Follow Up Appointment: 11/29/21 @ 230 pm Visitor Policy Reviewed:Yes Directions to Clinic given:Yes documented in this encounter Plan of Treatment Not on file documented as of this encounter Visit Diagnoses Not on filedocumented in this encounter Discontinued Medications Medication Sig Discontinue Reason Start Date End Da te acamprosate calcium (ACAMPROSATE ORAL) Take 333 mg by mouth 2 times daily. 11/06/2021 documented as of this encounter Historical Medications * This list may reflect changes made after this encounter. Medication Sig Dispensed Refills Start Date End Date diclofenac sodium gel Apply topically. 05/10/2020 triamcinolone (KENALOG) 0.1 % cream APPLY SMALL AMOUNT TOPICALLY TO THE AFFECTED AREA TWICE DAILY NEEDED 09/09/2021 ONE TOUCH DELICA 33 gauge misc TEST TWICE DAILY 10/17/2021 ONETOUCH VERIO TEST STRIPS test strips TEST TWICE DAILY 10/17/2021 acamprosate (CAMPRAL) 333 mg tablet 1 Tablet 3 times daily. 11/05/2021 folic acid (FOLVITE) 1 mg tablet Take 1 mg by mouth. 05/13/2020 11/30/19 22 added in this encounter Care Teams Consultant Education Relationship Specialty Start Date End Date Tristan Collins MD PCP - General 06/26/11 05/12/23 documented as of this encounter
--- OUTSIDE RECORDS SUMMARY | 2024-02-29 08:18 | XMS_ITS | Encounter Summary ---
Author Organization [facility] Address [address] [place] [address] Care Team Providers Care Head Of Physics Name Role Phone Tristan Collins MD Primary Care Provider Unav ailable Reason for Visit * Reason Comments Telemedicine Video Visit Follow-up Encounter Details Date Type Department Care Team (Late st Contact Info) Description 07/16/2022 15:30 EST Telemedicine [facility] - [address] [phone] Марина Tsai PERFORMANCE INSTRUCTOR 1 [facility] [address] [place] [address] Obstructive sleep apnea (Primary Dx) [...] lb) 07/16/2022 1525 EST per patient Height - - Body Mass Index 36.28 [...] Progress Notes * Марина Tello NP - 07/16/2022 1530 EST [facility] Date of Service: 07/16/2022 Name: Yasmani Glaser : 1970 TELEMEDICINE VIDEO [...] Sleep Apnea HPI: Yasmani Glaser is a 52 y.o. 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 Patient is unaccompanied today. Pt??initially presented??to another sleep clinic??with??symptoms of??snoring and frequent nocturnalawakenings, and he underwent a split night PSG at [facility] in [place], [place],??which was reportedly consistent with obstructive sleep apnea.??He initially used CPAP 6-12cm H2O, until about 2018, when he started to struggle with the use of CPAP due to waking up with a strange taste in his mouth, so he discontinued CPAP use entirely. He presented to this sleep clinic in 08/2019, at which time he had lost 60lb since the time of his initial NERIS evaluation, but still reported symptoms of snoring, gasping respirations, and morning headaches. Repeat testing was recommended, and he underwentsplit night PSG 10/07/19, which revealed an AHI of 23, and he was prescribed CPAP 5- 15cm H2O. He wasseen 11/30/20, at which time he was not using CPAP because he did not have a functioning machine, buthe was motivated to start using it, and a machine was ordered. He was last seen 01/24/22, at which time he was still not using CPAP because his machine had been recalled, but he had recently received a replacement machine in the mail and was planning to start using it again once he obtained supplies.Patient returns today for follow-up. He has still not been using CPAP because he has not received what he needs from the DME. He was sent by [employer] the main part of a replacement machine, but does not have any other parts to use with it because he threw away his old machine. He feels motivated to start using CPAP again once he has the proper equipment, because he is aware that his sleep quality is better with CPAP and it helps him feel more rested. Mask: FFM, comfortable, no bothersome leak Pressure: comfortable Humidifier: using Oral dryness: denies Nasal congestion: denies Bedtime: 10 PM LYNSEY: sometimes quick, other times takes a little longer - trazodone helps Awakenings: can be disrupted by pain/discomfort, and then can be hard to get back to sleep Rise time: 6 AM at the latest, usually awake before that Upon awakening: does not typically feel rested, but was feeling better with CPAP Daytime sleepiness: denies but sometimes feels fatigued Naps: none Driving: denies difficulty maintaining wakefulness Sleep Aids: trazodone Stimulants: none Caffeine: 3-5 cups of coffee/day, sometimes has an energy drink instead 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 Back [...] Wt 98.9 kg (218 lb) Comment: per patient BMI 36.28 kg/m?? Wt Readings from Last 5 Encounters: 07/16/22 98.9 kg (218 lb) 01/24/22 98.9 kg (218 lb) 11/04/21 99.8 kg (220 lb 0.3 oz) 11/30/20 99.8 kg (220 lb) 10/07/19 89.8 kg (198 lb) Physical Exam: General: Well developed, well nourished male who is in no apparent distress Head: Atraumatic, normocephalic Mouth: The lips are without lesion. Neurologic: Speech fluent. Psych: Alert, oriented and cooperative, normal attention span and concentration. Relevant Data: COMPLIANCE REPORT: No usage PSG Data: Split Night Polysomnogram??on 10/07/2019??(pt weight 198lb):?? INDICATION FOR STUDY: The patient is a [...] be notified by the staff at the [facility] of the results of the test. *Auto titrating CPAP with a pressure range of 5-15 cm of water will be prescribed. *Follow-up will be arranged??at the??at the [facility].?? Assessment: 52 y.o. male who presented to the [facility] on 07/16/2022 for follow-up of NERIS onCPAP therapy. Patient has not been using CPAP [...] An order will be sent to his [employer] company to get him the parts he needs, and he will follow up with them about this. When he was using CPAP, he was not having any problems with it, and it helped him feel more rested, so he is motivated to resume consistent use. His data will be monitored remotely as he starts to use CPAP, to ensure adequate control of NERIS, and any pressure adjustments can be m jj as necessary. He will also call if he identifies barriers to resuming use of CPAP. Otherwise, he will continue to follow-up with his other providers for medication management. Recommend maintaining consistent sleep and wake times and trying to allow 7-8 hours for total sleep per night, all withCPAP. Also recommend limiting caffeine use, regular activity as tolerated, and weight loss. [...] time of the visit. Марина Tello NP 07/16/2022 documented in this encounter Plan of Treatment Not on file documented as of this encounter Procedures Procedure Name Priority Date/Time Associated Diagnosis Comments ORDERS - SCANNED 07/26/2022 2:10 EST documented in this encounter Results * ORDERS - SCANNED (07/26/2022 2:10 EST) 07/26/2022 2:10 EST Scan 2 Library Services Coordinator ADMISSION ORDERABLE S documented in this encounter Visit Diagnoses Diagnosis Obstructive sleep apnea- Primary Obstructive sleep apnea (adult) (pediatric) documented in this encounter Orders Equipment Count Last Ordered Date First Orde red Date CPAP/BIPAP GENERAL ORDER 1 07/16/2022 documented in this encounter Care Teams Head Of Physics Relationship Specialty Start Date End Date Tristan Collins MD PCP - General 06/26/11 05/12/23 documented as of this encounter
--- OUTSIDE RECORDS SUMMARY | 2024-02-29 08:18 | XMS_ITS | Encounter Summary ---
Author Organization [facility] Address [address] [place] [address] Care Team Providers Care Hiv Counselor Name Role Phone Tristan Collins MD Primary Care Provider Unav ailable Reason for Visit * Reason Onset Date Comments Appointment Related 12/27/2021 Encounter Details Date Type Department Care Team (Late st Contact Info) Description 12/27/2021 Telephone [facility] - [address] [address] [place], [place] [id number] Марина Tsai ANALYTICAL CONSULTANT 1 [facility] [address] [place] [address] Appointment Related Social History Tobacco [...] * Telephone Encounter - Beena Reno - 01/06/2022 1139 EDT LVM for an earlier apt with Марина on 01/10 * Telephone Encounter - Beena Reno - 12/31/2021 1613 EDT LVM from wait list to offer patient an earlier apt with Emiy 01/02 * Telephone Encounter - Beena Reno - 12/27/2021 1312 EDT LVM from wait list to schedule an earlier apt with Марина on 12/30 documented in this encounter Plan of Treatment Not on file documented as of this encounter Visit Diagnoses Not on filedocumented in this encounter Care Teams Hiv Counselor Relationship Specialty Start Date End Date Tristan Collins MD PCP - General 06/26/11 05/12/23 documented as of this encounter
--- OUTSIDE RECORDS SUMMARY | 2024-02-29 08:18 | XMS_ITS | Encounter Summary ---
Author Organization [facility] Address [address] [place] [address] Care Team Providers Care Pouch Making Machine Operator Name Role Phone Tristan Collins MD Primary Care Provider Vilma Riojas Primary Care Provider [phone] Encounter Details Date Type Department Care Team (Late st Contact Info) Description 08/14/2022 Lab Requisition [facility] Pathology & Laboratory Medicine - [facility] [address] [place] [address] Outr Resulting Lab, Provider Social History Tobacco Use Types Packs/Day Years [...] Procedure Name Priority Date/Time Associated Diagnosis Comments HOMOCYSTEINE Routine 08/14/2022 9:39 EST documented in this encounter Results * HOMOCYSTEINE (08/14/2022 9:39 EST) Homocysteine 9.4 5.0 - 13.9 umol/L 08/15/2022 8:13 EST [facility] Blood VENOUS BLOOD / Unknown 08/14/2022 9:39 EST 08/14/2022 17:29 EST Narrative [facility] - 08/15/2022 8:13 EST Reference range may not apply to non-fasting samples. ??It is not recommended that EDTA plasma and serum from the same patient be used interchangeably. ??Serum concentrations have been observed to be up to 10% higher than EDTA plasma. Reference range may not apply to serum results. Provider Outr Resulting Lab CHEMISTRY & BLOOD GAS ORDERABLES Performing Organization Address City/State/[facility] Co de Phone Number [facility] [address] [place] [address] documented in this encounter Visit Diagnoses Not on filedocumented in this encounter Care Teams Pouch Making Machine Operator Relationship Specialty Start Date End Date Tristan Collins MD PCP - General 06/26/11 05/12/23 Vilma Givens [address] [place] [id number] PCP - General Internal Medicine - Primary Care 05/13/23 documented as of this encounter
--- OUTSIDE RECORDS SUMMARY | 2024-02-29 08:18 | XMS_ITS | Encounter Summary ---
Author Organization [facility] Address [address] [place] [address] Care Team Providers Care Glass Edger Name Role Phone Tristan Collins MD Primary Care Provider Unav ailable Reason for Visit * (Routine/Next Available) - Receiving Office to Obtain Authorization Specialty Diagnoses / Procedures Referred By Hemant t Referred To Contact Procedures MR OUTSIDE IMAGES LUMBAR SPINE Imaging, External Referral ID Status Reason Start Date Expiration Date Visits Requested Visits Authorized [id number] Receiving Office to Obtain Authorization 02/24/2023 1 1 Encounter Details Date Type Department Care Team (Latest Contact Info) Description 02/23/2023 - 02/23/2023 23:59 EDT Hospital Encounter [facility] Secondary Reads [place] Discharge Disposition: Home or Self Care Social [...] 1 Capsule by mouth 4 times daily. magnesium oxide (MAG-OX) 400 mg [...] Procedure Name Priority Date/Time Associated Diagnosis Comments MR OUTSIDE IMAGES LUMBAR SPINE Routine 02/23/2023 9:24 EDT documented in this encounter Results * MR OUTSIDE IMAGES LUMBAR SPINE (02/23/2023 9:24 EDT) Narrative 02/24/2023 9:24 EDT This is a non-reportable exam. External Imaging IMG OTHER IMAGING OR DERABLES documented in this encounter Visit Diagnoses Not on filedocumented in this encounter Care Teams Glass Edger Relationship Specialty Start Date End Date Tristan Collins MD PCP - General 06/26/11 05/12/23 documented as of this encounter
--- OUTSIDE RECORDS SUMMARY | 2024-02-29 08:18 | XMS_ITS | Encounter Summary ---
Author Organization [facility] Address [address] [place] [address] Care Team Providers Care Blueprint Cutter Name Role Phone Tristan Collins MD Primary Care Provider Unav ailable Reason for Visit * Reason Comments Back Pain Patient is here for left sided lower back pain * Consult (Routine) - Authorization Not Required Specialty Diagnoses / Procedures Referred By Hemant linn Referred To Contact Pain Medicine Diagnoses Left sided sciatica Vilma Givens [address] [place] [address] [facility] [address] [facility] [place] [address] Referral ID Status Reason Start Date Expiration Date Visits Requested Visits Authorized [id number] Authorization Not Required 1 1 Encounter Details Date Type Department Care Team (Latest Contact Info) Description 03/31/2023 9:[address] [facility] Interventional Pain [address] [place] [address] Marian Marquez PA-C [address] [facility] [address] [place] [address] Lumbar radicular pain (Primary Dx) Social History Tobacco Use Types [...] Sign Reading Time Taken Comments Blood Pressure 133/84 03/31/2023920 EDT Pulse 57 03/31/2023920 EDT Temperature 36.7 ??C (98.1 ??F) 03/31/2023920 EDT Respiratory Rate 16 03/31/2023920 EDT Oxygen Saturation 98% 03/31/2023920 EDT Inhaled Oxygen Concentration - - Weight [...] as of this encounter Progress Notes * Marian Marquez PA-C - 03/31/2023 0945 EDT Images from the original note were not included. [facility] Outpatient PAIN Consult Patient Name: Yasmani Glaser : 1970 Date of Service: 03/31/2023 Primary Care Provider: Tristan Collins Chief complaint: Chief Complaint Patient presents with ??? Back Pain Patient is here for left sided lower back pain History of Present Illness/Pain complaint: Yasmani Glaser is a 53 y.o. male with a past medical history of liver cirrhosis ( normal platelet count), depression, GERD, HTN, hx of L3-S1 fusion, hx of bilateral SI joint fusion seen today for evaluation of a chief complaint of back pain with left posterior leg pain. Location of Pain/ Radicular pattern: Pain is located in the low back with radiation into the left posterior leg and into the foot. Duration of current pain signs and symptoms: Patient has had chronic pain for years. Inciting event: no specific injury or trauma. Description/Characteristics of Pain: He describes the pain as a sharp and achy /stabbing pain. Associated symptoms: No weakness, numbness, or paresthesias. No unexplained weight loss, bowel and/or bladder incontinence, saddle numbness, unexplained fever, or trauma. Activities that worsen pain: Physical activity, movement Activities that improve pain: resting The patient's average pain scale report today on a VAS 1-10: 04/05 He is currently seeing psychiatry through [facility] as his pain has a significant impact on his mental health. This pain has had a negative impact on the patients quality of life as he has not been able to complete his daily activities. Prior interventional pain procedures and response include: [facility]: Numerous back surgeries/revisions (see past surgical hx) (Patient reports other injections but does not remember exactly where) 10/09/2011: Left sacroiliac joint injection No improvement 08/18/2011: Transforaminal epidural ??steroid injection at the left??L5- S1??foramen: Worsening of pain Previous surgeries : L3-S1 fusion Bilateral SI joint fusions Conservative treatment Physical therapy: Patient recently has done 3 months of physical therapy with no great relief. Home regimen: Continues at home exercises on a daily basis. Medications associated with chronic pain: Current: Gabapentin 300mg three tabs TID Tylenol Anticoagulation: none Imaging/Test Review MRI lumbar spine 03/30/2017: No Known Allergies Outpatient Medications Marked as Taking for the 03/31/23 encounter (Initial consult) with aMrian Marquez PA-C Medication Sig Dispense Refill ??? acamprosate (CAMPRAL) 333 mg tablet 1 Tablet 3 times daily. ??? acetaminophen (TYLENOL) 500 mg tablet Take 1 Tablet by mouth every 6 hours as needed for Pain or Fever. ??? ARIPiprazole (ABILIFY) 10 mg tablet Take 1 Tablet by mouth daily. ??? empagliflozin (JARDIANCE) 10 mg tablet Take 1 Tablet by mouth daily. ??? gabapentin (NEURONTIN) 300 mg capsule Take 1 Capsule by mouth 4 times daily. ??? lamoTRIgine (LAMICTAL) 100 mg tablet Take 1 Tablet by mouth 2 times daily. ??? lithium (LITHOBID) 300 mg CR tablet Take 2 Tablets by mouth 3 times daily. ??? ONE TOUCH DELICA 33 gauge misc TEST TWICE DAILY ??? ONETOUCH VERIO TEST STRIPS test strips TEST TWICE DAILY ??? traZODone (DESYREL) 100 mg tablet TAKE 1 TO 2 TABLETS BY MOUTH AT BEDTIME NEEDED ??? VITAMIN D3 50 mcg (2,000 unit) tablet Take 1 Tablet by mouth daily. Past Medical History: Diagnosis Date ??? Anxiety ??? Back pain 08/11/2014 S/p repeated lumbar surgeries with posterior spinal fusion and multiple revisions complicated by wound infection due to Staph epidermidis. ??? Depression ??? Diarrhea ??? GERD (gastroesophageal reflux disease) ??? HTN (hypertension) ??? Liver cirrhosis secondary to nonalcoholic steatohepatitis (MITCHELL) (HCC-[facility]) (HCC) 09/04/2015 ??? Lung disease ??? Nonspecific finding on examination of urine ??? Pancreatitis, gallstone 10/27/2021 ??? Sleeping difficulty ??? Staph infection 06/2014 s/p back surgery Past Surgical History: Procedure Laterality Date ??? BONE INCISION AND DRAINAGE x3 ??? CHOLECYSTECTOMY ??? COLONOSCOPY 2014 ??? HIP SURGERY ??? LIVER BIOPSY 07/2015 ??? LUMBAR FUSION ??? OTHER SURGICAL HISTORY SI joint infusion x3 Social History Socioeconomic History ??? Marital status: Spouse name: Not on file ??? Number of children: Not on file ??? Years of education: Not on file ??? Highest education level: Not on file Occupational History ??? Not on file Tobacco Use ??? Smoking status: Never ??? Smokeless tobacco: Former ??? Tobacco comments: Daily x 28 YRS - Quit 4 YRS ago. Substance and Sexual Activity ??? Alcohol use: Not Currently Comment: No alcohol x1.5 yr ??? Drug use: No ??? Sexual activity: Yes Partners: Female Other Topics Concern ??? Not on file Social History Narrative ??? Not on file Social Determinants of Health Financial Resource Strain: Not on file Food Insecurity: Not on file Transportation Needs: Not on file Physical Activity: Not on file Stress: Not on file Social Connections: Not on file Housing Stability: Not on file Family History Problem Relation Age of Onset ??? Diabetes Father ??? Heart Disease Father ??? Cancer Father Review of Systems A 10 point review of system was performed and reviewed. Pertinent positives have been included in HPI and past medical history. All others negative. Physical Examination Vitals: Blood pressure 133/84, pulse 57, temperature 36.7 ??C (98.1 ??F), temperature source Tympanic, resp. rate 16, SpO2 98 %. General: Pleasant, cooperative, mood and affect are appropriate. Neuro: Alert and oriented to person, place, time and purpose. Posture:poor posture Gait: antalgic gait Palpation: There are no palpable masses, lesions or deformities. Skin: Intact with no stigmata of underlying disease. ROM: full ROM of lumbar spine , + facet loading Sensation: Grossly intact throughout all dermatomes . Strength: LOWER Right Left Hip flexion ( L1 L2) 5/5 5/5 Knee extension (L2-L4) 5/5 5/5 Ankle dorsiflexion (L5, +/-L4) 5/5 5/5 Extensor hallucis longus (L5) 5/5 5/5 Ankle plantarflexion (S1) 5/5 5/5 Assessment and Plan Encounter Diagnoses Name Primary? Lumbar radicular pain Yes This is a 53-year-old male who presents with chronic low back and radicular leg pain. He has a pastmedical history of L3-S1 fusion and hx of bilateral SI joint fusion. We did discuss injection therapy and recommend proceeding with a caudal epidural. I encouraged him to continue at home exercises. I also encouraged him to continue to follow-up with his psychiatrist which has been very helpful for him. Interventional Plan: 1. Recommend proceeding with caudal epidural injection. Regarding the above interventions, the patient has been educated regarding the risks (including bleeding, infection, increased pain, nerve damage, or allergic reaction), benefits, and alternatives. The patient states he/she understands and is eager to proceed. Non- Interventional Plan: 1.Continue at home exercises on a daily basis. Thank you for the consultation, please call with any questions. Marian Marquez PA-C Interventional Pain Medicine [facility] 04/02/23 I spent a total of 45 minutes on the date of this encounter meeting with the patient and reviewing documentation/coordinating care as described in the above note. I was directly supervised by Dr. Major. documented in this encounter Plan of Treatment Not on file documented as of this encounter Visit Diagnoses Diagnosis Lumbar radicular pain- Primary Thoracic or lumbosacral neuritis or radiculitis, unspecified documented in this encounter Historical Medications * This list may reflect changes made after this encounter. Medication Sig Dispensed Refills Start Date End Date ARIPiprazole (ABILIFY) 10 mg tablet Take 1 Tablet by mouth daily. lithium (LITHOBID) 300 mg CR tablet Take 2 Tablets by mouth 3 times daily. lamoTRIgine (LAMICTAL) 100 mg tablet Take 1 Tablet by mouth 2 times daily. added in this encounter Care Teams Blueprint Cutter Relationship Specialty Start Date End Date Tristan Collins MD PCP - General 06/26/11 05/12/23 documented as of this encounter
--- OUTSIDE RECORDS SUMMARY | 2024-02-29 08:18 | XMS_ITS | Encounter Summary ---
Author Organization [facility] Address [address] [place] [address] Care Team Providers Care Automatic Splicing Machine Operator Name Role Phone Tristan Collins MD Primary Care Provider Unav ailable Reason for Visit * Reason Comments Post-OP Follow Up * Consult (See Order Priority) - Order Cancelled Specialty Diagnoses / Procedures Referred By Hemant linn Referred To Contact Trauma Surgery Diagnoses Pancreatitis, gallstone Cholangitis Calculus of gallbladder and bile duct with obstruction without cholecystitis Liver cirrhosis secondary to nonalcoholic steatohepatitis ([place]) ([facility]) Shelby Dos Santos PA-C [address] [place] [phone] [facility] Ep[facility] Trauma/Crit Care [address] [place] [id number] Referral ID Status Reason Start Date Expiration Date Visits Requested Visits Authorized [id number] Order Cancelled Specialty Services Required 11/04/2021 1 1 Encounter Details Date Type Department Care Team (Late st Contact Info) Description 11/29/2021 14:30 EDT Post-op Visit [facility] Acute [facility] Surgery - [facility] [address], [place] [phone] Juan Antonio Coronado PA-C [address] [facility], [address] [place] [phone] Calculus of gallbladder and bile duct with obstruction without cholecystitis (Primary Dx) Social History Tobacco Use Types [...] Sign Reading Time Taken Comments Blood Pressure 128/80 11/29/2021 1441 EDT Pulse 68 11/29/2021 1441 EDT Temperature - - Respiratory Rate - - Oxygen Saturation - - Inhaled Oxygen Concentration - - Weight - [...] as of this encounter Progress Notes * Juan Antonio Coronado PA-C - 11/29/2021 1430 EDT ACS Clinic Visit CC: post-op s/p laparoscopic cholecystectomy Subjective: Yasmani Glaser presents to the clinic following a laparoscopic cholecystectomy on 11/03/[address] Chapman. Overall, the pt. Reports that he has been doing well since his procedure. He is eating a regular diet without difficulty. Bowel movements are Normal. The patient is not having any pain. Denied fevers, chills, N/V. Objective: Patient Vitals for the past 24 hrs: BP Pulse 11/29/21 1441 128/80 68 General: alert, cooperative, no distress Abdomen: soft, non-tender, non-distended Incision: healing well, no drainage, no erythema, no hernia, no seroma, no swelling, no dehiscence,incision well approximated Assessment: Doing well postoperatively. We discussed the pathology from their procedure, there were no questions or concerns. Plan: 1. Continue current medications as prescribed by your PCP and your specialist(s) 2. Pt is to increase activities as tolerated. 3. Follow up: PRN Juan Antonio Coronado PA-C documented in this encounter Plan of Treatment Not on file documented as of this encounter Visit Diagnoses Diagnosis Calculus of gallbladder and bile duct with obstruction without cholecystitis- Primary documented in this encounter Discontinued Medications Medication Sig Discontinue Reason Start Date End Da te traZODone (DESYREL) 50 mg tablet Take 100 mg by mouth daily. Take one to two before bed. 11/29/2021 fluticasone-salmeterol (ADVAIR) 250-50 mcg/dose diskus inhaler Inhale 1 Puff as directed 2 times daily. 11/29/2021 folic acid (FOLVITE) 1 mg tablet Take 1 mg by mouth. 05/13/2020 11/29/2021 methocarbamoL (ROBAXIN) 500 mg tablet Take 500 mg by mouth 3 times daily. 11/29/2021 oxyCODONE (ROXICODONE) 5 mg immediate release tablet Take 1-2 Tablets by mouth every 6 hours as needed for up to 8 doses for Pain. Daily Max: 40 mg 11/04/2021 11/29/2021 polyethylene glycol 3350 (MIRALAX) 17 gram packet Take 17 g by mouth daily as needed for Other (constipation). 11/04/2021 11/29/2021 sertraline (ZOLOFT) 50 mg tablet Take 100 mg by mouth daily. 11/29/2021 documented as of this encounter Historical Medications * This list may reflect changes made after this encounter. Medication Sig Dispensed Refills Start Date End Date traZODone (DESYREL) 100 mg tablet TAKE 1 TO 2 TABLETS BY MOUTH AT BEDTIME NEEDED 11/07/2021 VITAMIN D3 50 mcg (2,000 unit) tablet Take 1 Tablet by mouth daily. 11/06/2021 added in this encounter Care Teams Automatic Splicing Machine Operator Relationship Specialty Start Date End Date Tristan Collins MD PCP - General 06/26/11 05/12/23 documented as of this encounter
--- OUTSIDE RECORDS SUMMARY | 2024-02-29 08:18 | XMS_ITS | Encounter Summary ---
Author Organization [facility] Address [address] [place] [address] Care Team Providers Care Motel Front Desk Clerk Name Role Phone Tristan Collins MD Primary Care Provider Unav ailable Reason for Visit * Reason Onset Date Comments DME 09/08/2022 Encounter Details Date Type Department Care Team (Late st Contact Info) Description 09/08/2022 Telephone [facility] Sleep Program - [address] [place] [address] [place], [place] [phone] Sleep, Tech [address] [place], [place] [phone] DME Social History Tobacco Use Types Packs/Day [...] Telephone Encounter - Lupe Carlson - 09/08/2022 144 EST LMOM for [facility] to inquire if we can establish remote access to pt's PAP device. Asked for acall back to confirm. * Telephone Encounter - Lupe Carlson - 09/08/2022 1443 EST ----- Message from Марина Tello NP sent at 09/08/2022 14:21 EST ----- This patient was sent a replacement Tamra machine but when I saw him he said he didn't have any of the supplies to start using it, so I sent an order to DME and I'm hoping he has started using it again...wondering if we can try to get remote access to the new Tamra machine to monitor his usage?Let me know if you think this would be possible. Thanks! documented in this encounter Plan of Treatment Not on file documented as of this encounter Visit Diagnoses Not on filedocumented in this encounter Care Teams Motel Front Desk Clerk Relationship Specialty Start Date End Date Tristan Collins MD PCP - General 06/26/11 05/12/23 documented as of this encounter
--- OUTSIDE RECORDS SUMMARY | 2024-02-29 08:19 | XMS_ITS | Encounter Summary ---
Author Organization [facility] Address [address] [place] [address] Care Team Providers Care Kinesiology Professor Name Role Phone Tristan Collins MD Primary Care Provider Unav ailable Reason for Visit * Reason Onset Date Comments Appointment Related 11/09/2020 Encounter Details Date Type Department Care Team (Late st Contact Info) Description 11/09/2020 Telephone [facility] Sleep Program - [address] [phone] Марина Tsai NP 1 [facility] [address] [place] [phone] Appointment Related Social History Tobacco Use Types Packs/Day Years Used Date Smoking Tobacco: Never Smokeless Tobacco: Former Comments:Daily x 28 YRS - Qu it 4 YRS ago. Alcohol Use Standard Drinks/Week Comments Yes 0 (1 standard drink = 0.6 oz pur e alcohol) OCCASIONAL Interpersonal Safety Answer Date Record ed Physically Hurt Never 02/26/2020 Verbally Threaten Not on file 02/26/2020 Sex and Gender Information Value Date Recorded Sex Assigned at Not on file Gender Identity Not on file Sexual Orientation Not on file documented as of this encounter Functional Status Functional Status Response Date of Assess ment Because of a physical, menta l, or emotional condition, does this person have difficulty doing errands alone such as visiting a doctor's office or shopping? No 02/22/2018 Cognitive Status Response Date of Assessm ent Because of a physical, menta l, or emotional condition, does this person have serious difficulty concentrating, remembering, or making decisions? No 02/22/2018 documented as of this encounter Miscellaneous Notes * Telephone Encounter - Mervat Daily - 11/14/2020 1400 EDT Called Pt x2 to schedule curbside DWLD prior to appt. L/M req a c/b to schedule. * Telephone Encounter - Karime Randolph - 11/09/2020 1522 EDT Called pt to schedule a curbside dwld. Techs are unable to get REMOTE ACCESS. LVMM to call back to schedule documented in this encounter Plan of Treatment Not on file documented as of this encounter Visit Diagnoses Not on filedocumented in this encounter Care Teams Kinesiology Professor Relationship Specialty Start Date End Date Tristan Collins MD PCP - General 06/26/11 05/12/23 documented as of this encounter
--- OUTSIDE RECORDS SUMMARY | 2024-02-29 08:19 | XMS_ITS | Encounter Summary ---
Author Organization [facility] Address [address] [place] [address] Care Team Providers Care Cisco Engineer Name Role Phone Tristan Collins MD Primary Care Provider Unav ailable Reason for Visit * Reason Onset Date Comments Appointment Related 05/21/2021 Encounter Details Date Type Department Care Team (Late st Contact Info) Description 05/21/2021 Telephone [facility] Sleep Program - [address] [phone] Марина Tsai NP 1 [facility] [address] [place] [phone] Appointment Related Social History Tobacco [...] encounter Miscellaneous Notes * Telephone Encounter - Sheree Olea MA - 05/21/2021 1308 EDT Called pt to schedule fur with Марина Omer per her in basket request. Spoke to pt who asked to call back to set up when he has access to his calendar. documented in this encounter Plan of Treatment Not on file documented as of this encounter Visit Diagnoses Not on filedocumented in this encounter Care Teams Cisco Engineer Relationship Specialty Start Date End Date Tristan Collins MD PCP - General 06/26/11 05/12/23 documented as of this encounter
--- OUTSIDE RECORDS SUMMARY | 2024-02-29 08:19 | XMS_ITS | Encounter Summary ---
Author Organization [facility] Address [address] [place] [address] Care Team Providers Care Pin Puller Name Role Phone Tristan Collins MD Primary Care Provider Unav ailable Reason for Visit * Reason Onset Date Comments Appointment Related 04/04/2020 Encounter Details Date Type Department Care Team (Late st Contact Info) Description 04/04/2020 Telephone [facility] Sleep Program - [address] [place] [address] [place], [place] [phone] Марина Tsai NP 1 [facility] [address] [place] [phone] Appointment Related Social History Tobacco [...] encounter Miscellaneous Notes * Telephone Encounter - Karime Randolph - 04/04/2020 0837 EDT Called pt to schedule FUR. Pt requesting ZOOM. documented in this encounter Plan of Treatment Not on file documented as of this encounter Visit Diagnoses Not on filedocumented in this encounter Care Teams Pin Puller Relationship Specialty Start Date End Date Tristan Collins MD PCP - General 06/26/11 05/12/23 documented as of this encounter
--- OUTSIDE RECORDS SUMMARY | 2024-02-29 08:19 | XMS_ITS | Encounter Summary ---
Author Organization [facility] Address [address] [place] [address] Care Team Providers Care Greige Goods Examiner Name Role Phone Tristan Collins MD Primary Care Provider Unav ailable Reason for Visit * Reason Onset Date Comments Appointment Related 01/07/2021 Encounter Details Date Type Department Care Team (Late st Contact Info) Description 01/07/2021 Telephone [facility] Sleep Program - [address] [phone] Марина Tsai NP 1 [facility] 2 [place] [phone] Appointment Related Social History Tobacco [...] Miscellaneous Notes * Telephone Encounter - Sheree Olae MA - 01/07/2021 1211 EDT Called pt x2 to scheduled FUR -Compliance w марина Tello Left VM with details for pt to call back to schedule. documented in this encounter Plan of Treatment Not on file documented as of this encounter Visit Diagnoses Not on filedocumented in this encounter Care Teams Greige Goods Examiner Relationship Specialty Start Date End Date Tristan Collins MD PCP - General 06/26/11 05/12/23 documented as of this encounter
--- OUTSIDE RECORDS SUMMARY | 2024-02-29 08:19 | XMS_ITS | Encounter Summary ---
Author Organization [facility] Address [address] [place] [address] Care Team Providers Care Account Manager Employee Benefits Name Role Phone Tristan Collins MD Primary Care Provider Unav ailable Reason for Visit * Reason Onset Date Comments Appointment Related 01/15/2021 Encounter Details Date Type Department Care Team (Late st Contact Info) Description 01/15/2021 Telephone [facility] Sleep Program - [address] [phone] Марина Tsai NP 1 [facility] 2 [place] [phone] Appointment Related Social History Tobacco [...] Telephone Encounter - Sheree Olea MA - 01/15/2021 0849 EDT Called pt x3 to schedule FUR -Compliance w марина Tello ?? Left VM with details for pt to call back to schedule. documented in this encounter Plan of Treatment Not on file documented as of this encounter Visit Diagnoses Not on filedocumented in this encounter Care Teams Account Manager Employee Benefits Relationship Specialty Start Date End Date Tristan Collins MD PCP - General 06/26/11 05/12/23 documented as of this encounter
--- OUTSIDE RECORDS SUMMARY | 2024-02-29 08:19 | XMS_ITS | Encounter Summary ---
Author Organization [facility] Address [address] [place] [address] Care Team Providers Care Pipe Organ Installer Name Role Phone Tristan Collins MD Primary Care Provider Unav ailable Reason for Visit * Auth/Cert Specialty Diagnoses / Procedures Referred By Contvelma t Referred To Contact Diagnoses Pancreatitis, gallstone PANCREATITIS Referral ID Status Reason Start Date Expiration Date Visits Re quested Visits Authorized [id number] 1 1 Encounter Details Date Type Department Care Team (Late st Contact Info) Description 11/03/2021 18:20 EDT - 11/03/2021 20:25 EDT Surgery [facility] OR [address] [place] [id number] Adrien Chapman MD [address] [place] [address], [facility], Level [address] [place] [phone] CHOLECYSTECTOMY, LAPAROSCOPIC [[id number] (CPT??)] Surgery Details Date/Time Status Location OR Service Patient Class Case Class Case Type Trauma Case? 11/03/21 1820 Posted [facility] OR [facility] Trauma Inpatient G - Less than 48 hours Panel 1 Procedure LRB Anes Op Region Wound Class Comments CHOLECYSTECTOMY, LAPAROSCOPIC N/A General Abdomen Class I/ Clean Surgeon Surgeon Role Service Panel Adrien Chapman MD Primary Trauma 1 Ange Castillo MD Resident - Assisting Gen ceci 1 documented in this encounter Social History Tobacco Use Types Packs/Day Years [...] Sign Reading Time Taken Comments Blood Pressure 131/71 11/03/2021 1319 EDT Pulse 50 11/02/2021 2103 EDT Temperature 36.5 ??C (97.7 ??F) 11/03/2021 1319 EDT Respiratory Rate 16 11/03/2021 1319 EDT Oxygen Saturation 97% 11/03/2021 1319 EDT Inhaled Oxygen Concentration - - Weight 99.8 kg (220 lb) 10/30/2021 1230 EDT Height 165.1 cm (5' 5) 10/30/2021 1230 EDT Body Mass Index 36.61 11/04/2021 0019 [...] * Shelby Dos Santos PA-C - 10/28/2021 1870 EDT HOSPITAL MEDICINE/Acute Care Surgery DISCHARGE SUMMARY [...] obesity and HTN, who initially presented to [facility] for several weeks of increasingupper abdominal pain radiating to his back. He was afebrile and HD stable, was found to have serologic evidence of pancreatitis and cholestatic hepatitis, as well as cholelithiasis and biliary ductaldilation on imaging. He was transferred to [facility] where an MRCP confirmed the presence of [...] 24 hours to discuss resumption of some DRIVE IN THEATER ATTENDANT medications. His home chlorthalidone was held as his SBP were on the low end of normal while inpatient. He was additional instructed to resume his DRIVE IN THEATER ATTENDANT Januvia with close monitoring of his BG. He underwent informed consent for his Narcotic prescription and state clear understanding. He will follow up with [facility] post op clinic in 2-3 weeks. Relevant Imaging/Procedures Performed: CT Abdomen - [facility] (10/27/2021) Impression 1. Peripancreatic inflammation [...] Component Value Units Date/Time Bacterial Culture, Blood [[id number]] Collected: 10/28/21901 Lab Status: In process Specimen: Blood, Venous Updated: 10/28/21947 Bacterial Culture, Blood [[id number]] Collected: 10/28/21900 Lab Status: In process Specimen: [...] or concerns, please call our clinic at [phone] . We have someone available 24 hours [...] Code Departure Means Destination Home or Self Fpc documented in this encounter Progress Notes * Madeleine Nuñez - 11/04/2021 1134 EDT Received call from Ride delayed to 3:15 PM. Virginia Nuñez RN CCM [id number] ADDENDUM Cortext from direct care RN that she cannot print AVS. Contacted team. Documentation is corrected and AVS can be printed. Called to [facility] and spoke with Daksha who will let direct care RN know. Yasmani's [facility]. Virginia Nuñez RN CCM * Madeleine Nuñez - 11/04/2021 1035 EDT CM Discharge Note DISCHARGE DATE/TIME: 11/04/21 DESTINATION: Home Transportation: 11:30 AM [facility] - please assist patient to be in main lobby to meet ride (allow time for pharmacy if needed) TATTOO DESIGNER/CHARGE/MD NOTIFIED (Y/N): Yes Home Health: NA DME: NA Prescriptions: [facility] Pharmacy for discharge or patient preference. Patient and/or family who participated in discharge plan: Patient Virginia Giorgio Nuñez RN [facility] [id number] * Ismael Vasquez MD - 11/04/2021 [...] oz), SpO2 98 %. I/O: Current Shift 11/03 2300 - 11/04 0659 In: 700 [P.O.:200; I.V.:500] [...] OR today for cholecystectomy pending availability - AMANDAO Bereket Braden 11/03/21 07:21 Pager #[phone] [facility] Pager #[phone] ADDENDUM I have seen and examined this patient with the medical student. I have overseen the medical decision making process and agree with the above. Sandee Dahl MD 11/03/2021 9:22 General Surgery PGY-5 Pager [phone] Associated attestation - Adrien Chapman MD - 11/03/2021 1121 EDT Attestation: I performed or was present during the stapleton or critical portions of the visit and participated in the management of the patient on 11/03/2021. I agree with the findings and plan of care documented in the resident's/BEN's note. OR today for laparoscopic cholecystectomy. Adrien Chapman MD Acute Care Surgery Pager: [phone] * Juan Parks MD - 11/03/2021 0549 [...] likely secondary to Choledocholithiasis Fever Pain, lipase >43817 and imaging confirm acute pancreatitis. ERCP resulted in the removal of two bilirubin stones. Tolerating diet without difficulty and ambulating. Plan for OR today with [facility]. - OR with [facility] Chronic Problems Diabetes On DRIVE IN THEATER ATTENDANT Jardiance. Resume on discharge. - SSI and POCT with meals and at bedtime ?? Hypertension Holding DRIVE IN THEATER ATTENDANT chlorthalidone. Alcohol Use Disorder -Hold DRIVE IN THEATER ATTENDANT acamprosate 666 mg TID while admitted, can resume on discharge ?? Depression -Hold DRIVE IN THEATER ATTENDANT Lamotrigine 100 mg BID in the recent pancreatitis, can be resumed by PCP -Resume DRIVE IN THEATER ATTENDANT Buspar 10 mg TID and Sertraline 100 mg daily ?? VTE Prophylaxis Holding in preparation for OR procedure Discharge Plan Discharge plan per ACS. Patient reports he has a ride using the [employer] ([facility]) please call [phone] when ready to discharge Consults GI and ACS Pau Lozano DO Internal Medicine, PGY-1 Pager [phone]/Cortex 11/03/21 5:49 Attending attestation: I have seen [...] distended, minimally tender in the RUQ, negative Hesham's WWP A/P: Yasmani Weiner is a 51 [...] MD 11/02/2021 7:12 General Surgery PGY-5 Pager [phone] * Juan Parks MD - 11/02/2021 0642 [...] BP Temp Temp src Resp SpO2 11/01/21 2057 111/72 36.5 ??C (97.7 ??F) Tympanic 16 [...] likely secondary to Choledocholithiasis Fever Pain, lipase >59527 and imaging confirm acute pancreatitis. ERCP resulted in the removal of two bilirubin stones. Tolerating diet without difficulty and ambulating. Plan for OR tomorrow with ACS. - OR with [facility] Chronic Problems Diabetes On DRIVE IN THEATER ATTENDANT Jardiance. Resume on discharge. - SSI and POCT with meals and at bedtime ?? Hypertension Holding DRIVE IN THEATER ATTENDANT chlorthalidone. Alcohol Use Disorder -Hold DRIVE IN THEATER ATTENDANT acamprosate 666 mg TID while admitted, can resume on discharge ?? Depression -Hold DRIVE IN THEATER ATTENDANT Lamotrigine 100 mg BID in the recent pancreatitis, can be resumed by PCP -Resume DRIVE IN THEATER ATTENDANT Buspar 10 mg TID and Sertraline 100 mg daily ?? VTE Prophylaxis Heparin 5000 units three times daily, held at midnight prior to procedure. Discharge Plan Discharge plan per ACS Consults GI and ACS Pau Lozano DO Internal Medicine, PGY-1 Pager [phone]/Cortex 11/02/21 12:31 Attending attestation: I have seen and examined the patient and agree with findings and plans as outlined in the resident's note above. Doing well, pancreatitis resolved, ready for surgery when OR available Juan Parks MD * Cinthia Garcia RN - 11/01/2021 1062 EDT Patient requested to not be disturbed throughout the night. * May Wolfe RN - 11/01/2021 1526 EDT CASE MANAGEMENT UPDATE: Provided check-in with patient at bedside this morning. Currently NPO; pending OR procedure with ACS. No CM needs at this time. Will continue to follow and assist with coordination of disposition plan dependent on clinical course/ care team recommendations. May Wolfe RN [facility] Dept Pg [phone] * Juan Parks MD - 11/01/2021 0918 [...] likely secondary to Choledocholithiasis Fever Pain, lipase >58638 and imaging confirm acute pancreatitis. ERCP resulted in the removal of two bilirubin stones. Tolerating diet without difficulty and ambulating. Plan for OR today with ACS. - OR with [facility] Chronic Problems Diabetes On DRIVE IN THEATER ATTENDANT Jardiance. Resume on discharge. - SSI and POCT with meals and at bedtime ?? Hypertension On DRIVE IN THEATER ATTENDANT chlorthalidone. Can we started by PCP. -Hold DRIVE IN THEATER ATTENDANT meds, BP has been stable Alcohol Use Disorder -Hold DRIVE IN THEATER ATTENDANT acamprosate 666 mg TID while admitted, can resume on discharge ?? Depression -Hold DRIVE IN THEATER ATTENDANT Lamotrigine 100 mg BID in the recent pancreatitis, can be resumed by PCP -Resume DRIVE IN THEATER ATTENDANT Buspar 10 mg TID and Sertraline 100 [...] likely secondary to Choledocholithiasis Fever Pain, lipase >50319 and imaging confirm acute pancreatitis ERCP resulted in the removal of two bilirubin stones, - ACS consulted regarding inpatient cholecystectomy, will follow up recommendations - GI consulted and following, appreciate the recs. - Carb consistent diet - d/c dilaudid 1 mg q4h PRN - discontinue antibiotics (ceftriaxone and metronidazole) received 4 days total ?? Chronic Problems Diabetes On DRIVE IN THEATER ATTENDANT Jardiance - SSI and POCT with meals and at bedtime will add long acting insulin should glucose rise while eating Sinus Bradycardia asymptomatic, occurred while sleeping - discontinue telemetry. ?? Hypertension On DRIVE IN THEATER ATTENDANT chlorthalidone -Hold DRIVE IN THEATER ATTENDANT meds, BP has been stable Alcohol Use Disorder -Hold DRIVE IN THEATER ATTENDANT acamprosate 666 mg TID while admitted ?? Depression, ?Bipolar -Hold DRIVE IN THEATER ATTENDANT Lamotrigine 100 mg BID in the recent pancre - Resume DRIVE IN THEATER ATTENDANT Buspar 10 mg TID and Sertraline 100 [...] Choledocholithiasis/gallstone pancreatitis ERCP Findings Using a RX49 [employer] sphincterotome and a 0.035 inch wire, the [...] likely secondary to Choledocholithiasis Fever Pain, lipase >75326 and imaging confirm acute pancreatitis MRCP imaging [...] and WBCs ?? Chronic Problems Diabetes On DRIVE IN THEATER ATTENDANT Jardiance - SSI and POCT q6h while NPO Sinus Bradycardia asymptomatic, occurred while sleeping - discontinue telemetry. ?? Hypertension On DRIVE IN THEATER ATTENDANT chlorthalidone -Hold DRIVE IN THEATER ATTENDANT meds Alcohol Use Disorder -Hold DRIVE IN THEATER ATTENDANT acamprosate 666 mg TID while admitted ?? Depression, ?Bipolar -Hold DRIVE IN THEATER ATTENDANT Lamotrigine 100 mg BID as this could worsen/cause pancreatitis ?? VTE Prophylaxis Ambulate Discharge Plan Home or with self Care Consults BEN Nguyen 10/30/2021 6:49 I was present with the [...] for changes. Labs Reviewed: Recent Labs 10/29/21 07 WBC 7.57 RBC 4.39 HGB 11.7* HCT 36.2* MCV 83 MCH 26.7* MCHC 32.3* PLT 304 Recent Labs 10/29/21 07 NA 139 K 3.3* CL 103 CO2 23 BUN 9* CREATININE 0.40* CALCIUM 8.2* LABALBU 3.1* Recent Labs 10/29/21 07 PROTIME 14.9* INR 1.3* Recent Labs 10/29/21 0703 TBIL 1.5* ALKPHOS 172* AST 37 ALT 51* Imaging CT Abdomen - [facility] (10/27/2021) Impression 1. Peripancreatic inflammation [...] likely secondary to Choledocholithiasis Fever Pain, lipase >36426 and imaging confirm acute pancreatitis MRCP imaging [...] and WBCs ?? Chronic Problems Diabetes On DRIVE IN THEATER ATTENDANT Jardiance - SSI and POCT q6h while NPO ?? Hypertension On DRIVE IN THEATER ATTENDANT chlorthalidone -Hold DRIVE IN THEATER ATTENDANT meds Alcohol Use Disorder -Hold DRIVE IN THEATER ATTENDANT acamprosate 666 mg TID while admitted ?? Depression, ?Bipolar -Hold DRIVE IN THEATER ATTENDANT Lamotrigine 100 mg BID as this could [...] VERIFIED: PCP: MD Vilma De La Rosa/ [facility] Contact Info: Spouse Amelie [phone] Address: [address] [place] [address] Type of housing (single family, condo, apartment, halfway, single room occupancy, [facility] funded hotel room, group intermediate) - Private Residence Who does the patient [...] available to the patient? Family member(s) Is 16/02 care available? NA ADVANCED DIRECTIVES, POA &/or COLST IN PLACE: Healthcare Directive: No, patient does not have advance directive for healthcare treatment Copy in Chart: Yes, previous copy on file @ [facility] Information Provided on Healthcare Directives: No Information on Healthcare Directives Requested: No DIRECTIVES FOR FINANCES: Directive For Finances: No TRANSPORTATION: Transportation: Family, Self Patient expects to be discharged to: Home CULTURAL, LATTER DAY and/or LANGUAGE factors affecting health care/discharge planning: Spiritual/Cultural Requests: None Language/Literacy Needs Do you need us to provide any communication aids or devices?: No Insurance Information: Medical Insurance: Yes Type of insurance: Medicaid Medicaid Type: Community Referred to patient financial services: No Nutrition: Ordered for Clears (NPO for procedure) Low DRIVE IN THEATER ATTENDANT risk assessment for food insecurity DISCHARGE RISK [...] Health Services: None DME Provider: N/a Pharmacy: [id number] - [place], [place] - [address] [facility] [id number] [facility] - [place], [place] - [address] [address] Home Health: N/a Other: N/a POST HOSPITAL TRANSITION PLAN: Patient presented to [facility] (from [facility] 10/27/2021 with c/o abdominal pain, [...] access to enter along with spouse Amelie ([phone])and foster son Rich 15 yo (has been at residence for ~3 years). Patient is unemployed and receives SSDI for last 7-8 years. Discussed Medicaid assistance with transportation through [facility] ([phone]) to future appointmentsif needed. CM will continue [...] acute changes in care plan. /tlvRN pg [phone] MAY WOLFE RN 10/28/2021 16:18 * May Wolfe RN - 10/28/2021 1544 EDT CASE MANAGEMENT UPDATE: Met with patient at bedside to complete [facility] initial assessment; full note to follow. [phone] * Jaun Parks MD - 10/28/2021 0701 EDT Medicine [...] below for changes. Labs Reviewed: Recent Labs 10/28/21 0822 WBC 8.79 RBC 4.40 HGB 11.7* HCT 36.5* MCV 83 MCH 26.6* MCHC 32.1* PLT 275 Recent Labs 10/28/21 0822 NA 139 K 3.1* CL 101 CO2 28 BUN 14 CREATININE 0.47* CALCIUM 8.2* LABALBU 3.1* Recent Labs 10/28/21 0822 TBIL 2.3* ALKPHOS 203* AST 56* ALT 68* [facility] 10/27/2021 Lipase>41456 Glucose - 213 Bilruvin - 6.4 Alk Phos - 241 AST - 82 ALT - 114 Albumin - 3.[address] Abdomen - [facility] (10/27/2021) Impression 1. Peripancreatic inflammation compatible with acute pancreatitis 2. Mild intra and extrahepatic biliary ductal dilatation with extrahepatic bile duct measuring up to 1.1 cm in caliber. No choledocholithiasis or pancreatic head mass. ??MR CHOLANGIOPANCREATOGRAM CONTRAST Result Date: 10/27/2021 1. Choledocholithiasis with [...] likely secondary to Choledocholithiasis Fever Pain, lipase >89050 and imaging confirm acute pancreatitis MRCP imaging [...] and WBCs ?? Chronic Problems Diabetes On DRIVE IN THEATER ATTENDANT Jardiance - SSI and POCT q6h while NPO ?? Hypertension On DRIVE IN THEATER ATTENDANT chlorthalidone -Hold DRIVE IN THEATER ATTENDANT meds Alcohol Use Disorder -Hold DRIVE IN THEATER ATTENDANT acamprosate 666 mg TID while admitted ?? Depression, ?Bipolar -Hold DRIVE IN THEATER ATTENDANT Lamotrigine 100 mg BID as this could worsen/cause pancreatitis ?? VTE Prophylaxis Ambulate Discharge Plan Home or with self Care Consults BEN Nguyen 10/28/2021 7:01 I was present with [...] consulted for urgent ERCP. Cont empiric antibiotics. Juan Parks MD * Rain Lovell, RN - 10/27/2021 2245 EDT Data: Complained [...] needed. Will follow prn regimen. JAYCE QUINTANA, RT 10/27/21 * Jenifer Landaverde RN - 10/27/2021 1550 EDT Data: Pt admitted from [facility] for Pancreatitis and cholelithiasis. Pts Bps are [...] JENIFER LANDAVERDE RN 10/27/2021 15:51 * Petra Skelton, DEQUAN - 10/27/2021 1207 EDT VAT called to assess OSH PIV Data: #20 PIV to Right AC, placed early this am at [facility]. Action: Flushes well, brisk blood return, patient [...] & Physical Date: 10/30/2021 Time: 13:18 Location: [facility] General Medicine Unit Planned Procedure: ERCP Chief [...] Liver cirrhosis secondary to nonalcoholic steatohepatitis ([place]) ([facility]) (HCC) 09/04/2015 ??? Lung disease ??? Nonspecific [...] Last Liquid: 10/29/21 Time of Last Liquid: 2299 Date of Last Solid: 10/26/21 Time of [...] the past two days. Pt presented to [facility] for evaluation and is now presenting to [facility] in anticipation of further imaging. Patient denies any changes in diet, a family history of pancreatitis, use of alcohol in the previous 18 months, a smoking history, and medication changes. Presentation and course at [facility] Vital signs: Temperature 36 7, pulse 84, [...] suspension Instructions mailed once procedure scheduled. Questions: [facility] Gastroenterology: [phone] or GI Doctor's Office. (Patient not taking: [...] motor/sensory deficit. Labs I have personally reviewed [facility] 10/27/2021 Lipase>08158 Glucose - 213 Bilruvin - 6.4 Alk Phos - 241 AST - 82 ALT - 114 Albumin - 3.[address] Abdomen - [facility] (10/27/2021) Impression 1. Peripancreatic inflammation [...] constant, biting, epigastric pain with elevated lipase (>70059), and CT imagingconsistent with inflammatory changes in [...] bile duct dilation) Chronic Problems Diabetes On DRIVE IN THEATER ATTENDANT Jardiance , hold for now - SSI and POCT q6h while NPO Hypertension Will need to check his DRIVE IN THEATER ATTENDANT medications, possibly on carvedilol and chlorthalidone - Hold for now Alcohol Use Disorder -Hold DRIVE IN THEATER ATTENDANT acamprosate 666 mg TID Depression, ?Bipolar -Hold DRIVE IN THEATER ATTENDANT Lamotrigine 100 mg BID as this could worsen/cause pancreatitis VTE Prophylaxis Pharmacologic Prophylaxis: Enoxaparin (Lovenox) 40 mg SQ daily - hold in am for likely need for ERCP Code: Full Code NEEDS [facility] Discharge Plan pending clinical course Consults None Admission status Inpatient admission due to anticipated duration of hospitalization is two midnights or greater due to Pancreatitis. Patricio Nguyen 10/27/2021 11:50 I was present with the medical student for the history, exam, and medical decision making documented. I have edited the medical student note as appropriate. Pau Lozano, 10/27/2021 13:59 ATTENDING ATTESTATION: Date of service: [...] 10), and GERD who was transferred to [facility] from [facility] on 10/27/[address] at [...] he developed jaundice so he went to [facility] where hewas diagnosed with gallstone pancreatitis and [...] on arrival 3d ago) TP: 6.4 MRCP 10/27/215 IMPRESSION 1. Choledocholithiasis with several small calculi [...] team Bereket Braden MS4 10/31/21 15:19 Pager #[phone] ACS Service Pager #[phone] Attestation statement: I was present with the medical student for the history, exam, and medical decision making documented. I have personally performed my own physical exam and medical decision making. I have verified and agree with (or, as indicated, have edited) the medical student's documentation. See edits in blue. Jericho Yen MD Orthopaedics PGY-1 Pager #[phone] 10/31/21 17:10 Case discussed with: Dr. Faustina Pimentel Associated attestation - Dom Weems MD - 10/31/2021 3815 EDT Attending Note I examined and discussed this pt with the residents on 10/31/21 and agree with the above note Pt with gall stone pancreatitis, sp ERCP with stone clearance, resolution of pancreatitis, to OR tomorrow for lap amauri Dom Weems MD [id number] * Bob Mayer MD - 10/28/2021 0861 EDT Gastroenterology & Hepatology Consult Note The [...] choledo cholithiasis with initial T Bili at [facility] of 6.4, alk phos of [...] much to bear' at home in the proposal engineer hours Thursday, 10/27 so he presented to [facility]. He stated that the pain is reminiscent of a prior episode of pancreatitis. He endorses dark and looser than usual bowel movements for the past week. No cherelle blood per rectum. He denies any change in bowel habits, constipation, diarrhea, hematemesis, or swallowing difficulty/pain. Presentation and course at [facility] and [facility] to date: - Initially, he was afebrile at [facility] with Vital signs, 10/27: Temperature [...] - Follow up labs on 10/28 at [facility] revealed an improving T bili of 2.3 and alk phos of 203 - He was started on IV ctx, po flagyl; LR infusion Previous Endoscopies/Colonoscopies: - EGD and [facility] 2014 for diarrhea and weight loss, biopsies taken - EGD was unremarkable - [facility] revealed: ?? Diverticulosis found in the sigmoid colon. ?? Erythematous mucosa was found in the sigmoid colon. ?? A single diminutive polyp was found in the sigmoid colon. [facility] BX revealed focal neutrophilic inflammation of the [...] Data reviewed. Pertinent results are as follows: [facility] Labs: 10/27/2021 Lipase >15,000 Glucose - 213 [...] the last year. Imaging: CT Abdomen - [facility] (10/27/2021) Impression 1. Peripancreatic inflammation [...] to choledocholithiasis with initial T Bili at [facility] of 6.4, alk phos of [...] NPO after midnight tonight for possible ERCP 10/29 or 10/30. Okay for clears as tolerated today. Cirrhosis [...] Medicine Resident, PGY2 Gastroenterology & Hepatology Resident #[id number] Associated attestation - Keyshawn Bui MD - 10/28/2021 1739 EDT Attestation statement: I performed or was [...] Nursing Notes * Karlee Zepeda - 10/30/2021 1338 EDT ERCP Started * Karlee Zepeda - 10/30/2021 1335 EDT EGD completed * Karlee Zepeda - 10/30/2021 1308 EDT See anesthesia record for intubation/charting documented in this encounter OR Notes * OR Surgeon - Adrien Chapman MD - 11/03/2021 2110 EDT CHOLECYSTECTOMY, LAPAROSCOPIC Operative Note Date: 10/27/2021 - 11/03/2021 Location: [facility] OR Name: Yasmani Weiner, : 1970, Diagnosis Pre-Op Diagnosis Codes: * Calculus of gallbladder and bile duct with obstruction without cholecystitis [K80.71] Post-op Diagnosis * Calculus of gallbladder and bile duct with obstruction without cholecystitis [K80.71] Procedures CHOLECYSTECTOMY, LAPAROSCOPIC 41296 - [place] LAP,CHOLECYSTECTOMY Surgeons * Adrien Chapman MD - [...] Forearm (Removed) [REMOVED] Non-Surgical Airway (Removed) Staff: Fresh Meat Grader: Tad Ritchie RN Scrub Person: Jian Crotez RN Patient Ergonomics Consultant: Jacob Kay Indications: Yasmani Weiner is a [...] port site fascia was reapproximated with a [id number] 0 Vicryl suture. Skin sites were closed [...] home with patient. Pt delivered to he [facility] Community Transportation R: Pt verbalized understanding of discharge paperwork and denied further questions. Pt left floor via WC to the [employer] company outside the hospital NEGRITO SANCHEZ RN [...] Pt is being d/c today with the [facility] transportation at 1515 Patient info: Code: Full [...] Outcome: Ongoing * Plan of Care - Devatne Alexandra RN - 11/04/2021 0439 EDT Problem: [...] Op Note - Ange Kidd MD - 11/03/20210 EDT Date: 10/27/2021 - 11/03/2021 Location: [facility] OR Name: Yasmani Weiner, : 1970, Diagnosis Pre-Op Diagnosis Codes: * Gallstone pancreatitis Post-op Diagnosis * Gallstone pancreatitis Procedures CHOLECYSTECTOMY, LAPAROSCOPIC 30605 - [place] LAP,CHOLECYSTECTOMY Surgeons * Adrien Chapman MD - Primary * Ange Kidd MD - Resident - Assisting Procedure Summary Anesthesia: General ASA: II Estimated Blood Loss: 25 mL Total IV Fluids: 600 mL LDAs: Peripheral IV 10/28/211928 Right Forearm (Active) Peripheral IV 11/03/212006 (Active) Wound 11/03/21 Incision Abdomen Full thickness (Active) NG/OG Tube Orogastric 18 fr (Active) [REMOVED] Non-Surgical Airway (Removed) Staff: Fresh Meat Grader: Tad Ritchie RN Scrub Person: Jian Cortez RN Patient Ergonomics Consultant: Jacob Kay Indications: Yasmani Weiner is an [...] Kidd M.D. General Surgery Resident, PGY-4 Pager# [phone] 21:22 11/03/2021 * Plan of Care - [...] of Care - Cinthia Garcia RN - 11/01/20212203 EDT Received report on patient from [facility] at 1900. Patient sitting on the side [...] MD 11/01/2021 18:32 General Surgery PGY-5 Pager [phone] * Plan of Care - Perry Martin [...] adequate pain control overnight. Patient NPO at [place] for lap amauri today (11/01). Messaged MD [...] Care - Leana Guerra RN - 10/30/2021 2149 EDT Problem: Daily Care Plan Goals Goal: [...] given Response: pt down to 5/10 currently. [facility] LEANA GUERRA RN 10/30/2021 21:45 * Plan [...] yoanna urine, denies difficulty. Pt tolerating clear, Dr notified. IV fluids on hold for now ?? Response: Pt able to rest/sleep in between care. Remains free from nausea/vomiting. Safety hourly rounds done. JENIFER LANDAVERDE RN 10/29/2021 14:37 * Plan of Care - Jenifer Landaverde RN - 10/29/2021 1435 EDT Problem: Daily Care Plan Goals Goal: Care Plan Documentation 10/29/2021 143 by Jenifer Landaverde RN Outcome: Ongoing 10/29/2021 143 by Jenifer Landaverde RN Outcome: Ongoing 10/29/20211431 by Jenifer Landaverde RN Outcome: Ongoing Problem: High Fall Risk: Goal: Patient will Remain Free of Falls due to Med. Side Effects 10/29/2021 143 by Jenifer Landaverde RN Outcome: Ongoing 10/29/2021 1435 by Jenifer Landaverde RN Outcome: Ongoing 10/29/2021 1432 by Jenifer Landaverde RN Outcome: Ongoing Problem: High Fall Risk: Goal: Patient Will Remain Free from Fall-Related Injury 10/29/2021 1435 by Jenifer Landaverde RN Outcome: Ongoing 10/29/2021 1435 by Jenifer Landaverde RN Outcome: Ongoing 10/29/2021 1432 by Jenifer Landaverde RN Outcome: Ongoing Problem: High Fall Risk: Goal: Patient will Remain Free of Falls due to Dizziness/Vertigo 10/29/2021 1435 by Jenifer Landaverde RN Outcome: Ongoing 10/29/2021 1435 by Jenifer Landaverde RN Outcome: Ongoing 10/29/2021 1432 by Jenifer Landaverde RN Outcome: Ongoing Problem: Sensory: Goal: Ability to compensate for vision loss will be supported 10/29/2021 1435 by Jenifer Landaverde RN Outcome: Ongoing 10/29/2021 1435 by Jenifer Landaverde RN Outcome: Ongoing 10/29/2021 1432 by Jenifer Landaverde RN Outcome: Ongoing Problem: High Fall Risk: Goal: Patient will Remain Free of Falls due to Altered Elimination 10/29/2021 1435 by Jenifre Landaverde RN Outcome: Ongoing 10/29/2021 1435 by Jenifer Landaverde RN Outcome: Ongoing 10/29/2021 1432 by Jenifer Landaverde RN Outcome: Ongoing * [...] Med. Side Effects 10/28/2021 1158 by Jenifer Landaverde RN Outcome: [...] skin intact, slightly yellow in color, Dr aware. 10/27/2021 15:44 documented in this encounter Plan [...] Routine 6:06 EDT POCT GLUCOSE, INTERFACED Routine 0:13 EDT POCT GLUCOSE, INTERFACED Routine 21:01 EDT POCT GLUCOSE, INTERFACED Routine 17:36 EDT POCT GLUCOSE, INTERFACED Routine 13:17 EDT POCT GLUCOSE, INTERFACED Routine 9:23 EDT POCT GLUCOSE, INTERFACED Routine 6:47 EDT COMPLETE BLOOD COUNT Routine 11/02/2021 [...] 11/01/2021 6:15 EDT POCT GLUCOSE, INTERFACED Routine 21:06 EDT POCT GLUCOSE, INTERFACED Routine 022 17:31 EDT ECG REPORT - SCANNED 10/31/2021 15:42 EDT POCT GLUCOSE, INTERFACED Routine 12:42 EDT POCT GLUCOSE, INTERFACED Routine 022 9:32 EDT ERCP-GI PROCEDURE Routine 10/31/2021 7:5 0 EDT UPPER ENDOSCOPY PROCEDURE Routine 2021 7:50 EDT COMPLETE BLOOD COUNT Routine 10/31/2021 7:16 EDT COMPREHENSIVE METABOLIC PANEL (CMP) Routine 10/31/2021 7:16 EDT POCT GLUCOSE, INTERFACED Routine 022 21:20 EDT POCT GLUCOSE, INTERFACED Routine 022 20:18 EDT POCT GLUCOSE, INTERFACED Routine 022 16:49 EDT FL ERCP BILIARY SYSTEM Routine 13:57 EDT COMPLETE BLOOD COUNT Routine 10/30/2021 7:08 EDT COMPREHENSIVE METABOLIC PANEL (CMP) Routine 10/30/2021 7:08 EDT POCT GLUCOSE, INTERFACED Routine 022 5:50 EDT POCT GLUCOSE, INTERFACED Routine 022 23:52 EDT EKG 12-LEAD Routine 10/29/2021 22:36 EDT POCT GLUCOSE, INTERFACED Routine 022 18:02 EDT POCT GLUCOSE, INTERFACED Routine 022 12:24 EDT PROTIME Routine 10/29/2021 7:03 EDT COMPLETE BLOOD COUNT Routine 10/29/2021 7:03 EDT COMPREHENSIVE METABOLIC PANEL (CMP) Routine 10/29/2021 7:03 EDT POCT GLUCOSE, INTERFACED Routine 022 5:55 EDT POCT GLUCOSE, INTERFACED Routine 022 23:57 EDT POCT GLUCOSE, INTERFACED Routine 022 17:46 EDT POCT GLUCOSE, INTERFACED Routine 13:28 [...] 10/27/2021 13:24 EDT POCT GLUCOSE, INTERFACED Routine 13:22 EDT documented in this encounter Results * ECG REPORT - SCANNED (11/08/2021 6:30 EDT) 11/08/2021 6:30 EDT Scan 2 Luggage Liner PROCEDURE/MINOR YING GICAL ORDERABLES * ECG REPORT - SCANNED (11/07/2021 15:06 EDT) 11/07/2021 15:0 6 EDT Scan 2 Luggage Liner PROCEDURE/MINOR YING GICAL ORDERABLES * ECG REPORT - SCANNED (11/07/2021 15:06 EDT) 11/07/2021 15:0 6 EDT Scan 2 Luggage Liner PROCEDURE/MINOR YING GICAL ORDERABLES * (ABNORMAL) POCT GLUCOSE, INTERFACED (11/04/2021 12:23 EDT) Glucose, POC 167(H) 70 - 100 mg/dL 11/04/2021 12:28 EDT [facility] HN LAB POC COMMENT (GLUCOSE) Test Performed by Nursing Services 11/04/2021 12:28 EDT [facility] Blood CAPILLARY BLOOD / Unknown 11/04/2021 12:23 EDT 11/04/2021 12:28 EDT Ange Castillo MD POINT OF CAR E TEST ORDERABLES Performing Organization Address City/[facility]/ZIP Co de Phone Number [facility] [address] [place] [address] * (ABNORMAL) POCT GLUCOSE, INTERFACED (11/04/2021 8:51 EDT) Glucose, POC 151(H) 70 - 100 mg/dL 11/04/2021 8:52 EDT [facility] HN LAB POC COMMENT (GLUCOSE) Test Performed by Nursing Services 11/04/2021 8:52 EDT [facility] Blood CAPILLARY BLOOD / Unknown 11/04/2021 8:51 EDT 11/04/2021 8:52 EDT Ange Castillo MD POINT OF CAR E TEST ORDERABLES Performing Organization Address City/[facility]/ZIP Co de Phone Number [facility] [address] [place] [address] * (ABNORMAL) POCT GLUCOSE, INTERFACED (11/04/2021 0:08 EDT) Glucose, POC 131(H) 70 - 100 mg/dL 11/04/2021 0:10 EDT [facility] HN LAB POC COMMENT (GLUCOSE) Test Performed by Nursing Services 11/04/2021 0:10 EDT [facility] Blood CAPILLARY BLOOD / Unknown 11/04/2021 0:08 EDT 11/04/2021 0:10 EDT Rick Liu MD POINT OF CARE TEST O RDERABLES Performing Organization Address City/[facility]/ZIP Co de Phone Number [facility] [address] [place] [address] * (ABNORMAL) POCT GLUCOSE, INTERFACED (11/03/2021 21:40 EDT) Glucose, POC 118(H) 70 - 100 mg/dL 11/03/2021 21:46 EDT [facility] HN LAB POC COMMENT (GLUCOSE) Test Performed by Nursing Services 11/03/2021 21:46 EDT [facility] Blood CAPILLARY BLOOD / Unknown 11/03/2021 21:40 EDT 11/03/2021 21:46 EDT Adrien Chapman MD POINT OF CARE T EST ORDERABLES Performing Organization Address City/[facility]/ZIP Co de Phone Number [facility] [address] [place] [address] * SURGICAL PATHOLOGY (11/03/2021 21:00 EDT) Note to Patient The following pathology results have been interpreted by your pathologist and may be available to you before your health provider has had the opportunity to review them. Please allow time for your provider to receive these results and explore management options, if applicable. 11/07/2021 9:14 EDT [facility] Final Diagnosis A. GALLBLADDER, CHOLECYSTECTOMY: - Chronic cholecystitis. - Cholelithiasis. 11/07/2021 9:14 [facility] Attestation There was significant resident/fellow involvement in the diagnostic evaluation of this case. By the signature below, the attending physician certifies that they have personally conducted a gross and/or microscopic examination of the described specimens and rendered or confirmed the above diagnosis. 11/07/2021 9:14 [facility] at 0914 Clinical History Calculus of gallbladder and bile duct with obstruction without cholecystitis 11/07/2021 9:14 [facility] Gross Description A. Received fresh [...] 2.2 x 0.2 cm in aggregate). Two commercial sales representative sections and the en face cystic duct margin are submitted in A1. LILLIE KO MD PhD 11/05/2021 16:17 11/07/2021 9:14 [facility] Resident/Mason w: Lillie Ko MD PhD 11/07/2021 9:14 T [facility] Performing Lab [facility] 11/07/2021 9:14 [facility] Scanned Images 11/07/2021 9:14 [facility] Tissue ENTIRE GALLBLADDER / Unknown 11/03/2021 21:00 EDT 11/04/2021 10:05 EDT Adrien Chapman MD PATHOLOGY ORDER ALBARO [facility] [address] [place] [address] * POCT GLUCOSE, INTERFACED (11/03/2021 17:56 EDT) Glucose, POC 75 70 - 100 mg/dL 11/03/2021 17:58 EDT [facility] HN LAB POC COMMENT (GLUCOSE) Test Performed by Nursing Services 11/03/2021 17:58 EDT [facility] Blood CAPILLARY BLOOD / Unknown 11/03/2021 17:56 EDT 11/03/2021 17:58 EDT Rick Liu MD POINT OF CARE TEST O RDERABLES [facility] [address] [place] [address] * (ABNORMAL) POCT GLUCOSE, INTERFACED (11/03/2021 11:51 EDT) Glucose, POC 110(H) 70 - 100 mg/dL 11/03/2021 11:53 EDT [facility] HN LAB POC COMMENT (GLUCOSE) Test Performed by Nursing Services 11/03/2021 11:53 EDT [facility] Blood CAPILLARY BLOOD / Unknown 11/03/2021 11:51 EDT 11/03/2021 11:53 EDT Rick Liu MD POINT OF CARE TEST O RDERABLES [facility] [address] [place] [address] * (ABNORMAL) ELECTROLYTES (11/03/2021 6:25 EDT) Sodium 137 136 - 145 mmol/L 11/03/2021 7:40 EDT [facility] Potassium 4.4 3.5 - 5.0 mmol/L 11/03/2021 7:40 EDT [facility] Chloride 108 96 - 110 mmol/L 11/03/2021 7:40 EDT [facility] CO2 Total 20(L) 22 - 32 mmol/L 11/03/2021 7:40 EDT [facility] Anion Gap 9 5 - 14 11/03/2021 7:40 EDT [facility] Blood VENOUS BLOOD / Unknown Venipuncture / Unknown 11/03/2021 6:25 EDT 11/03/2021 7:04 EDT Pau Lozano CHEMISTRY & BLOOD AK S ORDERABLES Performing Organization Address [facility] de Phone Number [facility] [address] [place] [address] * (ABNORMAL) CREATININE (11/03/2021 6:25 EDT) Creatinine 0.48(L) 0.66 - 1.25 mg/dL 11/03/2021 7:40 EDT [facility] eGFR 123 >60 mL/min/1.73 m2 11/03/2021 7:40 EDT [facility] Blood VENOUS BLOOD / Unknown Venipuncture / Unknown 11/03/2021 6:25 EDT 11/03/2021 7:04 EDT Pau Lozano CHEMISTRY & BLOOD AK S ORDERABLES Performing Organization Address [facility] de Phone Number [facility] [address] [place] [address] * (ABNORMAL) COMPLETE BLOOD COUNT (11/03/2021 6:25 EDT) WBC 7.20 4.00 - 10.40 K/cmm 11/03/2021 7:02 T [facility] RBC 4.91 4.36 - 5.78 M/cmm 11/03/2021 7:02 [facility] Hemoglobin 13.5(L) 13.8 - 17.3 gm/dL 11/03/2021 7:02 [facility] HCT 41.5 39.5 - 50.2 % 11/03/2021 7:02 [facility] MCV 85 81 - 95 fl 11/03/2021 7:02 [facility] MCH 27.5(L) 27.6 - 33.0 pg 11/03/2021 7:02 T [facility] MCHC 32.5(L) 32.8 - 36.4 gm/dL 11/03/2021 7:02 [facility] RDW-CV 15.3(H) <14.2 % 11/03/2021 7:02 [facility] RDW-SD 45.3 <46.0 fl 11/03/2021 7:02 [facility] PLT 354 141 - 377 K/cmm 11/03/2021 7:02 [facility] MPV 10.4 9.5 - 12.7 fl 11/03/2021 7:02 [facility] Blood VENOUS BLOOD / Unknown Venipuncture / Unknown 11/03/2021 6:25 EDT 11/03/2021 6:55 EDT Pau Lozano DO HEMATOLOGY & PF4 ORD ERABLES Performing Organization Address City/[facility]/ZIP Co de Phone Number [facility] [address] [place] [address] * (ABNORMAL) POCT GLUCOSE, INTERFACED (11/03/2021 6:06 EDT) Glucose, POC 116(H) 70 - 100 mg/dL 11/03/2021 6:07 EDT [facility] HN LAB POC COMMENT (GLUCOSE) Test Performed by Nursing Services 11/03/2021 6:07 EDT [facility] Blood CAPILLARY BLOOD / Unknown 11/03/2021 6:06 EDT 11/03/2021 6:07 EDT Rick Liu MD POINT OF CARE TEST O RDERABLES [facility] [address] [place] [address] * (ABNORMAL) POCT GLUCOSE, INTERFACED (11/03/2021 0:13 EDT) Glucose, POC 184(H) 70 - 100 mg/dL 11/03/2021 0:14 EDT [facility] HN LAB POC COMMENT (GLUCOSE) Test Performed by Nursing Services 11/03/2021 0:14 EDT [facility] Blood CAPILLARY BLOOD / Unknown 11/03/2021 0:13 EDT 11/03/2021 0:14 EDT Rick Liu MD POINT OF CARE TEST O RDERABLES Performing Organization Address [facility] Co de Phone Number [facility] [address] [place] [address] * (ABNORMAL) POCT GLUCOSE, INTERFACED (11/02/2021 21:01 EDT) Glucose, POC 134(H) 70 - 100 mg/dL 11/02/2021 21:06 EDT [facility] HN LAB POC COMMENT (GLUCOSE) Test Performed by Nursing Services 11/02/2021 21:06 EDT [facility] Blood CAPILLARY BLOOD / Unknown 11/02/2021 21:01 EDT 11/02/2021 21:06 EDT Juan Parks MD POINT OF CARE JIGAR T ORDERABLES Performing Organization Address [facility] Co de Phone Number [facility] [address] [place] [address] * (ABNORMAL) POCT GLUCOSE, INTERFACED (11/02/2021 17:36 EDT) Glucose, POC 108(H) 70 - 100 mg/dL 11/02/2021 17:38 EDT [facility] HN LAB POC COMMENT (GLUCOSE) Test Performed by Nursing Services 11/02/2021 17:38 EDT [facility] Blood CAPILLARY BLOOD / Unknown 11/02/2021 17:36 EDT 11/02/2021 17:38 EDT Rick Liu MD POINT OF CARE TEST O RDERABLES [facility] [address] [place] [address] * (ABNORMAL) POCT GLUCOSE, INTERFACED (11/02/2021 13:17 EDT) Glucose, POC 149(H) 70 - 100 mg/dL 11/02/2021 13:22 EDT [facility] HN LAB POC COMMENT (GLUCOSE) Test Performed by Nursing Services 11/02/2021 13:22 EDT [facility] Blood CAPILLARY BLOOD / Unknown 11/02/2021 13:17 EDT 11/02/2021 13:22 EDT Juan Parks MD POINT OF CARE JIGAR T ORDERABLES Performing Organization Address [facility] Co de Phone Number [facility] [address] [place] [address] * (ABNORMAL) POCT GLUCOSE, INTERFACED (11/02/2021 9:23 EDT) Glucose, POC 129(H) 70 - 100 mg/dL 11/02/2021 13:22 EDT [facility] HN LAB POC COMMENT (GLUCOSE) Test Performed by Nursing Services 11/02/2021 13:22 EDT [facility] Blood CAPILLARY BLOOD / Unknown 11/02/2021 9:23 EDT 11/02/2021 13:22 EDT Rick Liu MD POINT OF CARE TEST O RDERABLES Performing Organization Address City/[facility]/ZIP Co de Phone Number [facility] [address] [place] [address] * (ABNORMAL) POCT GLUCOSE, INTERFACED (11/02/2021 6:47 EDT) Glucose, POC 137(H) 70 - 100 mg/dL 11/02/2021 6:52 EDT [facility] HN LAB POC COMMENT (GLUCOSE) Test Performed by Nursing Services 11/02/2021 6:52 EDT [facility] Blood CAPILLARY BLOOD / Unknown 11/02/2021 6:47 EDT 11/02/2021 6:52 EDT Juan Parks MD POINT OF CARE JIGAR T ORDERABLES [facility] [address] [place] [address] * (ABNORMAL) COMPREHENSIVE METABOLIC PANEL (CMP) (11/02/2021 6:11 EDT) Sodium 139 136 - 145 mmol/L 11/02/2021 8:11 [facility] Potassium 4.5 3.5 - 5.0 mmol/L 11/02/2021 8:11 [facility] Chloride 108 96 - 110 mmol/L 11/02/2021 8:11 [facility] CO2 Total 21(L) 22 - 32 mmol/L 11/02/2021 8:11 [facility] Glucose 145(H) 70 - 100 mg/dL 11/02/2021 8:11 [facility] BUN 16 10 - 26 mg/dL 11/02/2021 8:11 [facility] Creatinine 0.53(L) 0.66 - 1.25 mg/dL 11/02/2021 8:11 [facility] eGFR 120 >60 mL/min/1.7 3m2 11/02/2021 8:11 [facility] Total Protein 6.8 6.3 - 8.2 g/dL 11/02/2021 8:11 [facility] Albumin 3.3(L) 3.4 - 4.9 g/dL 11/02/2021 8:11 [facility] Alkaline Phosphatase 133(H) 38 - 126 U/L 11/02/2021 8:11 [facility] AST 29 15 - 46 U/L 11/02/2021 8:11 [facility] ALT 28 <50 U/L 11/02/2021 8:11 [facility] Bilirubin, Total 0.8 <1.4 mg/dL 11/03/19 8:11 [facility] Calcium 8.0(L) 8.5 - 10.5 mg/dL 11/02/2021 8:11 [facility] Albumin/Globulin Ratio 0.9(L) 1.0 - 2.5 11/02/2021 8:11 [facility] Anion Gap 10 5 - 14 11/02/2021 8:11 [facility] Blood VENOUS BLOOD / Unknown Venipuncture / Unknown 11/02/2021 6:11 EDT 11/02/2021 7:37 EDT Rick Liu MD CHEMISTRY & BLOOD GA S ORDERABLES Performing Organization Address City/State/[facility] Co de Phone Number [facility] [address] [place] [address] * (ABNORMAL) COMPLETE BLOOD COUNT (11/02/2021 6:11 EDT) WBC 8.00 4.00 - 10.40 K/cmm 11/02/2021 7:29 [facility] RBC 4.80 4.36 - 5.78 M/cmm 11/02/2021 7:29 [facility] Hemoglobin 12.9(L) 13.8 - 17.3 gm/dL 11/02/2021 7:29 [facility] HCT 40.5 39.5 - 50.2 % 11/02/2021 7:29 [facility] MCV 84 81 - 95 fl 11/02/2021 7:29 [facility] MCH 26.9(L) 27.6 - 33.0 pg 11/02/2021 7:29 [facility] MCHC 31.9(L) 32.8 - 36.4 gm/dL 11/02/2021 7:29 [facility] RDW-CV 15.0(H) <14.2 % 11/02/2021 7:29 [facility] RDW-SD 44.9 <46.0 fl 11/02/2021 7:29 EDT [facility] PLT 377 141 - 377 K/cmm 11/02/2021 7:29 EDT [facility] MPV 10.7 9.5 - 12.7 fl 11/02/2021 7:29 EDT [facility] Blood VENOUS BLOOD / Unknown Venipuncture / Unknown 11/02/2021 6:11 EDT 11/02/2021 7:15 EDT Pau Lozano DO HEMATOLOGY & PF4 ORD ERABLES Performing Organization Address [facility]/ZIP Co de Phone Number [facility] [address] [place] [address] * (ABNORMAL) POCT GLUCOSE, INTERFACED (11/01/2021 20:52 EDT) Glucose, POC 118(H) 70 - 100 mg/dL 11/01/2021 20:55 EDT [facility] HN LAB POC COMMENT (GLUCOSE) Test Performed by Nursing Services 11/01/2021 20:55 EDT [facility] Blood CAPILLARY BLOOD / Unknown 11/01/2021 20:52 EDT 11/01/2021 20:55 EDT Rick Liu MD POINT OF CARE TEST O DILAN Performing Organization Address [facility] Co de Phone Number [facility] [address] [place] [address] * (ABNORMAL) POCT GLUCOSE, INTERFACED (11/01/2021 18:07 EDT) Glucose, POC 236(H) 70 - 100 mg/dL 11/01/2021 18:12 EDT [facility] HN LAB POC COMMENT (GLUCOSE) Test Performed by Nursing Services 11/01/2021 18:12 EDT [facility] Blood CAPILLARY BLOOD / Unknown 11/01/2021 18:07 EDT 11/01/2021 18:12 EDT Rick Liu MD POINT OF CARE TEST O RDERABLES Performing Organization Address City/[facility]/ZIP Co de Phone Number [facility] [address] [place] [address] * (ABNORMAL) POCT GLUCOSE, INTERFACED (11/01/2021 12:00 EDT) Glucose, POC 105(H) 70 - 100 mg/dL 11/01/2021 12:02 EDT [facility] HN LAB POC COMMENT (GLUCOSE) Test Performed by Nursing Services 11/01/2021 12:02 EDT [facility] Blood CAPILLARY BLOOD / Unknown 11/01/2021 12:00 EDT 11/01/2021 12:02 EDT Rick Liu MD POINT OF CARE TEST O RDERABLES Performing Organization Address [facility]/ZIP Co de Phone Number [facility] [address] [place] [address] * (ABNORMAL) POCT GLUCOSE, INTERFACED (11/01/2021 6:16 EDT) Glucose, POC 168(H) 70 - 100 mg/dL 11/01/2021 6:17 EDT [facility] HN LAB POC COMMENT (GLUCOSE) Test Performed by Nursing Services 11/01/2021 6:17 EDT [facility] Blood CAPILLARY BLOOD / Unknown 11/01/2021 6:16 EDT 11/01/2021 6:17 EDT Rick Liu MD POINT OF CARE TEST O RDERAANA Performing Organization Address City/[facility]/ZIP Co de Phone Number [facility] [address] [place] [address] * (ABNORMAL) COMPREHENSIVE METABOLIC PANEL (CMP) (11/01/2021 6:15 EDT) Sodium 141 136 - 145 mmol/L 11/01/2021 7:25 EDT [facility] Potassium 4.2 3.5 - 5.0 mmol/L 11/01/2021 7:25 EDT [facility] Chloride 110 96 - 110 mmol/L 11/01/2021 7:25 [facility] CO2 Total 24 22 - 32 mmol/L 11/01/2021 7:25 [facility] Glucose 172(H) 70 - 100 mg/dL 11/01/2021 7:25 [facility] BUN 12 10 - 26 mg/dL 11/01/2021 7:25 [facility] Creatinine 0.62(L) 0.66 - 1.25 mg/dL 11/01/2021 7:25 [facility] eGFR 114 >60 mL/min/1.7 3m2 11/01/2021 7:25 [facility] Total Protein 6.6 6.3 - 8.2 g/dL 11/01/2021 7:25 [facility] Albumin 3.3(L) 3.4 - 4.9 g/dL 11/01/2021 7:25 [facility] Alkaline Phosphatase 140(H) 38 - 126 U/L 11/01/2021 7:25 [facility] AST 32 15 - 46 U/L 11/01/2021 7:25 [facility] ALT 31 <50 U/L 11/01/2021 7:25 [facility] Bilirubin, Total 0.9 <1.4 mg/dL 11/02/19 7:25 [facility] Calcium 8.2(L) 8.5 - 10.5 mg/dL 11/01/2021 7:25 [facility] Albumin/Globulin Ratio 1.0 1.0 - 2.5 11/01/2021 7:25 [facility] Anion Gap 7 5 - 14 11/01/2021 7:25 [facility] Blood VENOUS BLOOD / Unknown Venipuncture / Unknown 11/01/2021 6:15 EDT 11/01/2021 6:50 EDT Rick Liu MD CHEMISTRY & BLOOD GA S ORDERABLES [facility] [address] [place] [address] * (ABNORMAL) COMPLETE BLOOD COUNT (11/01/2021 6:15 EDT) WBC 6.64 4.00 - 10.40 K/cmm 11/01/2021 6:45 EDT [facility] RBC 4.80 4.36 - 5.78 M/cmm 11/01/2021 6:45 EDT [facility] Hemoglobin 12.8(L) 13.8 - 17.3 gm/dL 11/01/2021 6:45 T [facility] HCT 39.4(L) 39.5 - 50.2 % 11/01/2021 6:45 EDT [facility] MCV 82 81 - 95 fl 11/01/2021 6:45 EDT [facility] MCH 26.7(L) 27.6 - 33.0 pg 11/01/2021 6:45 EDT [facility] MCHC 32.5(L) 32.8 - 36.4 gm/dL 11/01/2021 6:45 T [facility] RDW-CV 14.6(H) <14.2 % 11/01/2021 6:45 T [facility] RDW-SD 42.4 <46.0 fl 11/01/2021 6:45 EDT [facility] PLT 367 141 - 377 K/cmm 11/01/2021 6:45 EDT [facility] MPV 10.3 9.5 - 12.7 fl 11/01/2021 6:45 T [facility] Blood VENOUS BLOOD / Unknown Venipuncture / Unknown 11/01/2021 6:15 EDT 11/01/2021 6:37 EDT Pau Lozano DO HEMATOLOGY & PF4 ORD ERABLES [facility] [address] [place] [address] * (ABNORMAL) POCT GLUCOSE, INTERFACED (10/31/2021 21:06 EDT) Glucose, POC 122(H) 70 - 100 mg/dL 10/31/2021 21:13 EDT [facility] HN LAB POC COMMENT (GLUCOSE) Test Performed by Nursing Services 10/31/2021 21:13 EDT [facility] Blood CAPILLARY BLOOD / Unknown 10/31/2021 21:06 EDT 10/31/2021 21:13 EDT Rick Liu MD POINT OF CARE TEST O RDERABLES Performing Organization Address City/[facility]/ZIP Co de Phone Number [facility] [address] [place] [address] * (ABNORMAL) POCT GLUCOSE, INTERFACED (10/31/2021 17:31 EDT) Glucose, POC 112(H) 70 - 100 mg/dL 10/31/2021 17:33 EDT [facility] HN LAB POC COMMENT (GLUCOSE) Test Performed by Nursing Services 10/31/2021 17:33 EDT [facility] Blood CAPILLARY BLOOD / Unknown 10/31/2021 17:31 EDT 10/31/2021 17:33 EDT Rick Liu MD POINT OF CARE TEST O RDERABLES Performing Organization Address City/[facility]/ZIP Co de Phone Number [facility] [address] [place] [address] * ECG REPORT - SCANNED (10/31/2021 15:42 EDT) 10/31/2021 15:4 2 EDT Scan 2 Luggage Liner PROCEDURE/MINOR YING GICAL ORDERABLES * (ABNORMAL) POCT GLUCOSE, INTERFACED (10/31/2021 12:42 EDT) Glucose, POC 162(H) 70 - 100 mg/dL 10/31/2021 12:44 EDT [facility] HN LAB POC COMMENT (GLUCOSE) Test Performed by Nursing Services 10/31/2021 12:44 EDT [facility] Blood CAPILLARY BLOOD / Unknown 10/31/2021 12:42 EDT 10/31/2021 12:44 EDT Rick Liu MD POINT OF CARE TEST O DILAN Performing Organization Address [facility] Co de Phone Number [facility] [address] [place] [address] * (ABNORMAL) POCT GLUCOSE, INTERFACED (10/31/2021 9:32 EDT) Glucose, POC 138(H) 70 - 100 mg/dL 10/31/2021 9:37 EDT [facility] HN LAB POC COMMENT (GLUCOSE) Test Performed by Nursing Services 10/31/2021 9:37 EDT [facility] Blood CAPILLARY BLOOD / Unknown 10/31/2021 9:32 EDT 10/31/2021 9:37 EDT Rick Liu MD POINT OF CARE TEST O DILAN Performing Organization Address [facility] Co de Phone Number [facility] [address] [place] [address] * UPPER ENDOSCOPY PROCEDURE (10/31/2021 7:50 EDT) [...] years. Keyshawn Bui MD GI PROCEDURE ORDER ALBAOR * ERCP-GI PROCEDURE (10/31/2021 7:50 EDT) Anatomical [...] See Anesthesia Record Findings Using a RX49 [employer] sphincterotome and a 0.035 inch wire, [...] 141 136 - 145 mmol/L 10/31/2021 8:32 [facility] Potassium 4.0 3.5 - 5.0 mmol/L 10/31/2021 8:32 [facility] Chloride 105 96 - 110 mmol/L 10/31/2021 8:32 [facility] CO2 Total 30 22 - 32 mmol/L 10/31/2021 8:32 [facility] Glucose 131(H) 70 - 100 mg/dL 10/31/2021 8:32 [facility] BUN 9(L) 10 - 26 mg/dL 10/31/2021 8:32 [facility] Creatinine 0.58(L) 0.66 - 1.25 mg/dL 10/31/2021 8:32 [facility] eGFR 117 >60 mL/min/1.7 3m2 10/31/2021 8:32 [facility] Total Protein 6.4 6.3 - 8.2 g/dL 10/31/2021 8:32 [facility] Albumin 3.2(L) 3.4 - 4.9 g/dL 10/31/2021 8:32 [facility] Alkaline Phosphatase 144(H) 38 - 126 U/L 10/31/2021 8:32 [facility] AST 33 15 - 46 U/L 10/31/2021 8:32 [facility] ALT 36 <50 U/L 10/31/2021 8:32 [facility] Bilirubin, Total 1.1 <1.4 mg/dL 11/01/19 8:32 [facility] Calcium 8.2(L) 8.5 - 10.5 mg/dL 10/31/2021 8:32 [facility] Albumin/Globulin Ratio 1.0 1.0 - 2.5 10/31/2021 8:32 [facility] Anion Gap 6 5 - 14 10/31/2021 8:32 [facility] Blood VENOUS BLOOD / Unknown Venipuncture / Unknown 10/31/2021 7:16 EDT 10/31/2021 8:00 EDT Rick Liu MD CHEMISTRY & BLOOD GA S ORDERABLES [facility] [address] [place] [address] * (ABNORMAL) COMPLETE BLOOD COUNT (10/31/2021 7:16 EDT) WBC 6.93 4.00 - 10.40 K/cmm 10/31/2021 8:10 [facility] RBC 4.76 4.36 - 5.78 M/cmm 10/31/2021 8:10 [facility] Hemoglobin 12.5(L) 13.8 - 17.3 gm/dL 10/31/2021 8:10 [facility] HCT 39.8 39.5 - 50.2 % 10/31/2021 8:10 [facility] MCV 84 81 - 95 fl 10/31/2021 8:10 [facility] MCH 26.3(L) 27.6 - 33.0 pg 10/31/2021 8:10 [facility] MCHC 31.4(L) 32.8 - 36.4 gm/dL 10/31/2021 8:10 [facility] RDW-CV 14.6(H) <14.2 % 10/31/2021 8:10 [facility] RDW-SD 44.2 <46.0 fl 10/31/2021 8:10 [facility] PLT 363 141 - 377 K/cmm 10/31/2021 8:10 [facility] MPV 10.6 9.5 - 12.7 fl 10/31/2021 8:10 [facility] Blood VENOUS BLOOD / Unknown Venipuncture / Unknown 10/31/2021 7:16 EDT 10/31/2021 7:59 EDT Pau Lozano DO HEMATOLOGY & PF4 ORD ERABLES [facility] [address] [place] [address] * (ABNORMAL) POCT GLUCOSE, INTERFACED (10/30/2021 21:20 EDT) Glucose, POC 173(H) 70 - 100 mg/dL 10/30/2021 21:28 EDT [facility] HN LAB POC COMMENT (GLUCOSE) Test Performed by Nursing Services 10/30/2021 21:28 T [facility] Blood CAPILLARY BLOOD / Unknown 10/30/2021 21:20 EDT 10/30/2021 21:28 EDT Juan Parks MD POINT OF CARE JIGAR T ORDERABLES Performing Organization Address [facility] Co de Phone Number [facility] [address] [place] [address] * (ABNORMAL) POCT GLUCOSE, INTERFACED (10/30/2021 20:18 EDT) Glucose, POC 225(H) 70 - 100 mg/dL 10/30/2021 20:19 EDT [facility] HN LAB POC COMMENT (GLUCOSE) Test Performed by Nursing Services 10/30/2021 20:19 EDT [facility] Blood CAPILLARY BLOOD / Unknown 10/30/2021 20:18 EDT 10/30/2021 20:19 EDT Rick Liu MD POINT OF CARE TEST O RDERABLES Performing Organization Address [facility] Co de Phone Number [facility] [address] [place] [address] * POCT GLUCOSE, INTERFACED (10/30/2021 16:49 EDT) Glucose, POC 99 70 - 100 mg/dL 10/30/2021 16:50 EDT [facility] HN LAB POC COMMENT (GLUCOSE) Test Performed by Nursing Services 10/30/2021 16:50 EDT [facility] Blood CAPILLARY BLOOD / Unknown 10/30/2021 16:49 EDT 10/30/2021 16:50 EDT Pau Lozano DO POINT OF CARE TEST O RDERAANA Performing Organization Address [facility] Co de Phone Number [facility] [address] [place] [address] * [place] ERCP BILIARY SYSTEM (10/30/2021 13:57 [...] 140 136 - 145 mmol/L 10/30/2021 9:26 [facility] Potassium 3.7 3.5 - 5.0 mmol/L 10/30/2021 9:26 [facility] Chloride 104 96 - 110 mmol/L 10/30/2021 9:26 [facility] CO2 Total 25 22 - 32 mmol/L 10/30/2021 9:26 [facility] Glucose 130(H) 70 - 100 mg/dL 10/30/2021 9:26 [facility] BUN 9(L) 10 - 26 mg/dL 10/30/2021 9:26 [facility] Creatinine 0.40(L) 0.66 - 1.25 mg/dL 10/30/2021 9:26 [facility] eGFR 130 >60 mL/min/1.7 3m2 10/30/2021 9:26 [facility] Total Protein 6.2(L) 6.3 - 8.2 g/dL 10/30/2021 9:26 [facility] Albumin 3.1(L) 3.4 - 4.9 g/dL 10/30/2021 9:26 [facility] Alkaline Phosphatase 155(H) 38 - 126 U/L 10/30/2021 9:26 [facility] AST 28 15 - 46 U/L 10/30/2021 9:26 [facility] ALT 40 <50 U/L 10/30/2021 9:26 [facility] Bilirubin, Total 1.2 <1.4 mg/dL 10/31/19 9:26 [facility] Calcium 7.9(L) 8.5 - 10.5 mg/dL 10/30/2021 9:26 [facility] Albumin/Globulin Ratio 1.0 1.0 - 2.5 10/30/2021 9:26 [facility] Anion Gap 11 5 - 14 10/30/2021 9:26 [facility] Blood VENOUS BLOOD / Unknown Venipuncture / Unknown 10/30/2021 7:08 EDT 10/30/2021 8:50 EDT Rick Liu MD CHEMISTRY & BLOOD GA S ORDERABLES [facility] [address] [place] [address] * (ABNORMAL) COMPLETE BLOOD COUNT (10/30/2021 7:08 EDT) WBC 6.54 4.00 - 10.40 K/cmm 10/30/2021 8:35 [facility] RBC 4.37 4.36 - 5.78 M/cmm 10/30/2021 8:35 [facility] Hemoglobin 11.6(L) 13.8 - 17.3 gm/dL 10/30/2021 8:35 [facility] HCT 36.3(L) 39.5 - 50.2 % 10/30/2021 8:35 [facility] MCV 83 81 - 95 fl 10/30/2021 8:35 [facility] MCH 26.5(L) 27.6 - 33.0 pg 10/30/2021 8:35 [facility] MCHC 32.0(L) 32.8 - 36.4 gm/dL 10/30/2021 8:35 [facility] RDW-CV 14.4(H) <14.2 % 10/30/2021 8:35 [facility] RDW-SD 42.7 <46.0 fl 10/30/2021 8:35 [facility] PLT 339 141 - 377 K/cmm 10/30/2021 8:35 [facility] MPV 10.7 9.5 - 12.7 fl 10/30/2021 8:35 [facility] Blood VENOUS BLOOD / Unknown Venipuncture / Unknown 10/30/2021 7:08 EDT 10/30/2021 8:24 EDT Pau Lozano DO HEMATOLOGY & PF4 ORD ERABLES [facility] [address] [place] [id number] * (ABNORMAL) POCT GLUCOSE, INTERFACED (10/30/2021 5:50 EDT) Glucose, POC 114(H) 70 - 100 mg/dL 10/30/2021 5:51 EDT [facility] HN LAB POC COMMENT (GLUCOSE) Test Performed by Nursing Services 10/30/2021 5:51 EDT [facility] Blood CAPILLARY BLOOD / Unknown 10/30/2021 5:50 EDT 10/30/2021 5:51 EDT Pau Lozano DO POINT OF CARE TEST O RDERABLES [facility] [address] [place] [address] * (ABNORMAL) POCT GLUCOSE, INTERFACED (10/29/2021 23:52 EDT) Glucose, POC 214(H) 70 - 100 mg/dL 10/29/2021 23:55 EDT [facility] HN LAB POC COMMENT (GLUCOSE) Test Performed by Nursing Services 10/29/2021 23:55 EDT [facility] Blood CAPILLARY BLOOD / Unknown 10/29/2021 23:52 EDT 10/29/2021 23:55 EDT Pau Lozano DO POINT OF CARE TEST O RDERABLES [facility] [address] [place] [address] * EKG 12-LEAD (10/29/2021 22:36 EDT) 10/29/2021 22:3 6 EDT Narrative [facility] EKG - 11/07/2021 17:33 EDT ? [facility] ? Test Date: ?2021-10-29 Pat Name: ? YASMANI REGINE ?Department: ?? Yu 4 ? Room: ? B486 Gender: ? Male ? Roll On Worker: ?? [id number] : ?1970 ? Requested By: DELMI GOOD Order Number: [id number] ? Reading : ?? BEREKET JEFFERSON SA, MD ? Measurements Intervals ?[place] ? Rate: ? 46 ? P: ?-1 NH: ? 185 ?QRS: ?-9 QRSD: ? 95 [...] Bereket Alfaro Sa, MD - 11/07/2021 [facility] Test Date: 2021-10-29 Pat Name: YASMANI WEINER Department: Aimee Childress Room: B486 Gender: Male Roll On Worker: [id number] : 1970 Requested By: DELMI GOOD Order Number: [id number] Reading MD: BEREKET CARREON Measurements Intervals [place] Rate: 46 P: -1 NH: 185 QRS: -9 QRSD: 95 T: -6 [...] Viviana Awad MD CARDIAC ECG ORDERABL ES [facility] EKG * (ABNORMAL) POCT GLUCOSE, INTERFACED (10/29/2021 18:02 EDT) Glucose, POC 161(H) 70 - 100 mg/dL 10/29/2021 18:04 EDT [facility] HN LAB POC COMMENT (GLUCOSE) Test Performed by Nursing Services 10/29/2021 18:04 EDT [facility] Blood CAPILLARY BLOOD / Unknown 10/29/2021 18:02 EDT 10/29/2021 18:04 EDT Pau Lozano DO POINT OF CARE TEST O RDERABLES [facility] [address] [place] [address] * (ABNORMAL) POCT GLUCOSE, INTERFACED (10/29/2021 12:24 EDT) Glucose, POC 107(H) 70 - 100 mg/dL 10/29/2021 12:26 EDT [facility] HN LAB POC COMMENT (GLUCOSE) Test Performed by Nursing Services 10/29/2021 12:26 [facility] Blood CAPILLARY BLOOD / Unknown 10/29/2021 12:24 EDT 10/29/2021 12:26 EDT Pau Lozano DO POINT OF CARE TEST O RDERABLES [facility] [address] [place] [address] * (ABNORMAL) COMPREHENSIVE METABOLIC PANEL (CMP) (10/29/2021 7:03 EDT) Sodium 139 136 - 145 mmol/L 10/29/2021 7:57 [facility] Potassium 3.3(L) 3.5 - 5.0 mmol/L 10/29/2021 7:57 [facility] Chloride 103 96 - 110 mmol/L 10/29/2021 7:57 [facility] CO2 Total 23 22 - 32 mmol/L 10/29/2021 7:57 [facility] Glucose 142(H) 70 - 100 mg/dL 10/29/2021 7:57 [facility] BUN 9(L) 10 - 26 mg/dL 10/29/2021 7:57 [facility] Creatinine 0.40(L) 0.66 - 1.25 mg/dL 10/29/2021 7:57 [facility] eGFR 130 >60 mL/min/1.7 3m2 10/29/2021 7:57 [facility] Total Protein 6.4 6.3 - 8.2 g/dL 10/29/2021 7:57 [facility] Albumin 3.1(L) 3.4 - 4.9 g/dL 10/29/2021 7:57 [facility] Alkaline Phosphatase 172(H) 38 - 126 U/L 10/29/2021 7:57 [facility] AST 37 15 - 46 U/L 10/29/2021 7:57 T [facility] ALT 51(H) <50 U/L 10/29/2021 7:57 [facility] Bilirubin, Total 1.5(H) <1.4 mg/dL 10/30/19 7:57 [facility] Calcium 8.2(L) 8.5 - 10.5 mg/dL 10/29/2021 7:57 [facility] Albumin/Globulin Ratio 0.9(L) 1.0 - 2.5 10/29/2021 7:57 [facility] Anion Gap 13 5 - 14 10/29/2021 7:57 [facility] Blood VENOUS BLOOD / Unknown Venipuncture / Unknown 10/29/2021 7:03 EDT 10/29/2021 7:25 EDT Rick Liu MD CHEMISTRY & BLOOD GA S ORDERABLES Performing Organization Address City/State/[facility] Co de Phone Number [facility] [address] [place] [address] * (ABNORMAL) COMPLETE BLOOD COUNT (10/29/2021 7:03 EDT) WBC 7.57 4.00 - 10.40 K/cmm 10/29/2021 7:34 [facility] RBC 4.39 4.36 - 5.78 M/cmm 10/29/2021 7:34 [facility] Hemoglobin 11.7(L) 13.8 - 17.3 gm/dL 10/29/2021 7:34 [facility] HCT 36.2(L) 39.5 - 50.2 % 10/29/2021 7:34 [facility] MCV 83 81 - 95 fl 10/29/2021 7:34 [facility] MCH 26.7(L) 27.6 - 33.0 pg 10/29/2021 7:34 [facility] MCHC 32.3(L) 32.8 - 36.4 gm/dL 10/29/2021 7:34 EDT [facility] RDW-CV 14.4(H) <14.2 % 10/29/2021 7:34 EDT [facility] RDW-SD 42.7 <46.0 fl 10/29/2021 7:34 EDT [facility] PLT 304 141 - 377 K/cmm 10/29/2021 7:34 EDT [facility] MPV 10.5 9.5 - 12.7 fl 10/29/2021 7:34 EDT [facility] Blood VENOUS BLOOD / Unknown Venipuncture / Unknown 10/29/2021 7:03 EDT 10/29/2021 7:23 EDT Pau Lozano DO HEMATOLOGY & PF4 ORD ERABLES Performing Organization Address [facility] de Phone Number [facility] [address] [place] [address] * (ABNORMAL) PROTIME (10/29/2021 7:03 EDT) I.N.R. 1.3(H) 0.9 - 1.1 Ratio 10/29/2021 7:38 EDT [facility] Pro Time 14.9(H) 10.4 - 12.6 secs 10/29/2021 7:38 EDT [facility] Blood VENOUS BLOOD / Unknown Venipuncture / Unknown 10/29/2021 7:03 EDT 10/29/2021 7:21 EDT Narrative [facility] - 10/29/2021 7:38 EDT Moderate Intensity Coumadin INR = 2.0-3.0 Adjustments in anticoagulant therapy dose should be based on the INR and NOT on the Protime. Pau Lozano DO HEMATOLOGY & PF4 ORD ERABLES Performing Organization Address [facility] Co de Phone Number [facility] [address] [place] [address] * (ABNORMAL) POCT GLUCOSE, INTERFACED (10/29/2021 5:55 EDT) Glucose, POC 125(H) 70 - 100 mg/dL 10/29/2021 5:56 EDT [facility] HN LAB POC COMMENT (GLUCOSE) Test Performed by Nursing Services 10/29/2021 5:56 EDT [facility] Blood CAPILLARY BLOOD / Unknown 10/29/2021 5:55 EDT 10/29/2021 5:56 EDT Pau Pazre DO POINT OF CARE TEST O RDERABLES Performing Organization Address City/[facility]/ZIP Co de Phone Number [facility] [address] [place] [address] * POCT GLUCOSE, INTERFACED (10/28/2021 23:57 EDT) Glucose, POC 93 70 - 100 mg/dL 10/28/2021 23:58 EDT [facility] HN LAB POC COMMENT (GLUCOSE) Test Performed by Nursing Services 10/28/2021 23:58 EDT [facility] Blood CAPILLARY BLOOD / Unknown 10/28/2021 23:57 EDT 10/28/2021 23:58 EDT Pau Pazre DO POINT OF CARE TEST O RDERABLES Performing Organization Address [facility]/ZIP Co de Phone Number [facility] [address] [place] [address] * (ABNORMAL) POCT GLUCOSE, INTERFACED (10/28/2021 17:46 EDT) Glucose, POC 122(H) 70 - 100 mg/dL 10/28/2021 17:47 EDT [facility] HN LAB POC COMMENT (GLUCOSE) Test Performed by Nursing Services 10/28/2021 17:47 EDT [facility] Blood CAPILLARY BLOOD / Unknown 10/28/2021 17:46 EDT 10/28/2021 17:47 EDT Pau Alia DO POINT OF CARE TEST O RDERABLES Performing Organization Address City/[facility] Co de Phone Number [facility] [address] [place] [address] * (ABNORMAL) POCT GLUCOSE, INTERFACED (10/28/2021 13:28 EDT) Glucose, POC 68(L) 70 - 100 mg/dL 10/28/2021 13:33 EDT [facility] HN LAB POC COMMENT (GLUCOSE) Test Performed by Nursing Services 10/28/2021 13:33 EDT [facility] Blood CAPILLARY BLOOD / Unknown 10/28/2021 13:28 EDT 10/28/2021 13:33 EDT Pau Lozano DO POINT OF CARE TEST O RDERABLES Performing Organization Address [facility] Co de Phone Number [facility] [address] [place] [address] * BACTERIAL CULTURE, BLOOD (10/28/2021 9:02 EDT) Organism ID No Growth at 5 days 11/02/2021 10:02 EDT [facility] Blood VENOUS BLOOD / Unknown Blood Culture / Unknown 10/28/2021 9:02 EDT 10/28/2021 9:48 EDT Pau Lozano DO MICROBIOLOGY - GENER AL ORDERABLES Performing Organization Address [facility] Co de Phone Number [facility] [address] [place] [address] * BACTERIAL CULTURE, BLOOD (10/28/2021 9:01 EDT) Organism ID No Growth at 5 days 11/02/2021 10:02 EDT [facility] Blood VENOUS BLOOD / Unknown Blood Culture / Unknown 10/28/2021 9:01 EDT 10/28/2021 9:48 EDT Pau Lozano DO MICROBIOLOGY - GENER AL ORDERABLES Performing Organization Address [facility]/ZIP Co de Phone Number [facility] [address] [place] [address] * (ABNORMAL) COMPREHENSIVE METABOLIC PANEL (CMP) (10/28/2021 8:22 EDT) Sodium 139 136 - 145 mmol/L 10/28/2021 9:46 [facility] Potassium 3.1(L) 3.5 - 5.0 mmol/L 10/28/2021 9:46 [facility] Chloride 101 96 - 110 mmol/L 10/28/2021 9:46 [facility] CO2 Total 28 22 - 32 mmol/L 10/28/2021 9:46 [facility] Glucose 104(H) 70 - 100 mg/dL 10/28/2021 9:46 [facility] BUN 14 10 - 26 mg/dL 10/28/2021 9:46 [facility] Creatinine 0.47(L) 0.66 - 1.25 mg/dL 10/28/2021 9:46 [facility] eGFR 124 >60 mL/min/1.7 3m2 10/28/2021 9:46 [facility] Total Protein 6.4 6.3 - 8.2 g/dL 10/28/2021 9:46 [facility] Albumin 3.1(L) 3.4 - 4.9 g/dL 10/28/2021 9:46 [facility] Alkaline Phosphatase 203(H) 38 - 126 U/L 10/28/2021 9:46 [facility] AST 56(H) 15 - 46 U/L 10/28/2021 9:46 [facility] ALT 68(H) <50 U/L 10/28/2021 9:46 [facility] Bilirubin, Total 2.3(H) <1.4 mg/dL 10/29/19 9:46 [facility] Calcium 8.2(L) 8.5 - 10.5 mg/dL 10/28/2021 9:46 [facility] Albumin/Globulin Ratio 0.9(L) 1.0 - 2.5 10/28/2021 9:46 [facility] Anion Gap 10 5 - 14 10/28/2021 9:46 [facility] Blood VENOUS BLOOD / Unknown Venipuncture / Unknown 10/28/2021 8:22 EDT 10/28/2021 8:45 EDT Rick Liu MD CHEMISTRY & BLOOD GA S ORDERABLES [facility] [address] [place] [address] * (ABNORMAL) COMPLETE BLOOD COUNT (10/28/2021 8:22 EDT) WBC 8.79 4.00 - 10.40 K/cmm 10/28/2021 8:56 [facility] RBC 4.40 4.36 - 5.78 M/cmm 10/28/2021 8:56 [facility] Hemoglobin 11.7(L) 13.8 - 17.3 gm/dL 10/28/2021 8:56 [facility] HCT 36.5(L) 39.5 - 50.2 % 10/28/2021 8:56 [facility] MCV 83 81 - 95 fl 10/28/2021 8:56 [facility] MCH 26.6(L) 27.6 - 33.0 pg 10/28/2021 8:56 [facility] MCHC 32.1(L) 32.8 - 36.4 gm/dL 10/28/2021 8:56 [facility] RDW-CV 14.6(H) <14.2 % 10/28/2021 8:56 [facility] RDW-SD 43.8 <46.0 fl 10/28/2021 8:56 [facility] PLT 275 141 - 377 K/cmm 10/28/2021 8:56 [facility] MPV 10.4 9.5 - 12.7 fl 10/28/2021 8:56 EDT [facility] Blood VENOUS BLOOD / Unknown Venipuncture / Unknown 10/28/2021 8:22 EDT 10/28/2021 8:46 EDT Pau Lozano DO HEMATOLOGY & PF4 ORD ERABLES Performing Organization Address City/[facility] Co de Phone Number [facility] [address] [place] [address] * POCT GLUCOSE, INTERFACED (10/28/2021 5:49 EDT) Glucose, POC 82 70 - 100 mg/dL 10/28/2021 5:53 EDT [facility] HN LAB POC COMMENT (GLUCOSE) Test Performed by Nursing Services 10/28/2021 5:53 EDT [facility] Blood CAPILLARY BLOOD / Unknown 10/28/2021 5:49 EDT 10/28/2021 5:53 EDT Pau Lozano DO POINT OF CARE TEST O RDERABLES Performing Organization Address [facility] Co de Phone Number [facility] [address] [place] [address] * COVID-19 TEST [facility] PCR (10/28/2021 1:12 EDT) Swab ENTIRE NASOPHARYNX / Unknown Swab / Unknown 10/28/2021 1:12 EDT 10/28/2021 1:16 EDT Steven Dickson MD MICROBIOLOGY - GENER AL ORDERABLES Performing Organization Address City/[facility]/ZIP Co de Phone Number [facility] [address] [place] [address] * COVID-19 TESTING (10/28/2021 1:12 EDT) COVID-19 rt-PCR Result Negative Negative 10/28/2021 2:09 EDT [facility] Comment: This test has not [...] history, and epidemiological information. Performed on the [employer] GeneXpert Instrument Performing Lab GeneXpert [facility] Lab 10/28/2021 2:09 EDT [facility] Swab ENTIRE NASOPHARYNX / Unknown Swab / Unknown 10/28/2021 1:12 EDT 10/28/2021 1:16 EDT Steven Dickson MD MICROBIOLOGY - GENER AL ORDERABLES Performing Organization Address City/[facility] Co de Phone Number [facility] [address] [place] [address] * POCT GLUCOSE, INTERFACED (10/28/2021 0:28 EDT) Glucose, POC 76 70 - 100 mg/dL 10/28/2021 0:33 EDT [facility] HN LAB POC COMMENT (GLUCOSE) Test Performed by Nursing Services 10/28/2021 0:33 EDT [facility] Blood CAPILLARY BLOOD / Unknown 10/28/2021 0:28 EDT 10/28/2021 0:33 EDT Pau Lozano DO POINT OF CARE TEST O RDERABLES Performing Organization Address City/[facility]/ZIP Co de Phone Number [facility] [address] [place] [address] * POCT GLUCOSE, INTERFACED (10/27/2021 18:32 EDT) Glucose, POC 97 70 - 100 mg/dL 10/27/2021 18:37 EDT [facility] HN LAB POC COMMENT (GLUCOSE) Test Performed by Nursing Services 10/27/2021 18:37 EDT [facility] Blood CAPILLARY BLOOD / Unknown 10/27/2021 18:32 EDT 10/27/2021 18:37 EDT Pau Lozano DO POINT OF CARE TEST O RDERABLES [facility] [address] [place] [address] * MR CHOLANGIOPANCREATOGRAM WO CONTRAST (10/27/2021 17:45 [...] andagree with the findings. Pau Lozano DO IMG MRI ORDERABLES * EKG 12-LEAD (10/27/2021 13:24 EDT) 10/27/2021 13:2 4 EDT Narrative [facility] - 10/31/2021 15:37 EDT ? [facility] ? Test Date: ?2021-10-27 Pat Name: ? YASMANI WEINER ?Department: ?? Aimee Childress ? Room: ? B486 Gender: ? Male ? Roll On Worker: ?? : ?[id number] ? Requested By: ALIA HARTMAN Order Number: [id number] ? Reading : ?? GRETA NIEVES MD ? Measurements Intervals ?[place] ? Rate: ? 65 ? P: ?67 NH: ? 196 ?QRS: ?-8 QRSD: ? 108 ?T: ?5 QT: ? 413 ? QTc: ?430 ? Interpretive Statements SINUS RHYTHM LEFT VENTRICULAR HYPERTROPHY AND ST-T CHANGE I reviewed the tracing and have either agreed or edited the findings in this report. Electronically Signed On 10-31-2021 15:37:33 EDT by GRETA NIEVES MD. Procedure Note Greta Nieves MD - 10/31/2021 [facility] Test Date: 2021-10-27 Pat Name: YASMANI WEINER Department: [place] [address] Room: B4 Gender: Male Roll On Worker: : 1970 Requested By: ALIA HARTMAN Order Number: [id number] Reading MD: GRETA NIEVES MD Measurements Intervals [place] Rate: 65 P: 67 NH: 196 QRS: -8 QRSD: 108 T: 5 QT: 413 QTc: 430 Interpretive Statements SINUS RHYTHM LEFT VENTRICULAR HYPERTROPHY AND ST-T CHANGE I reviewed the tracing and have either agreed or edited the findings inthis report. Electronically Signed On 10-31-2021 15:37:33 EDT by GRETA MONTES DE OCA. Pau Lozano DO CARDIAC ECG ORDERABL ES Performing Organization Address City/[facility]/ZIP Co de Phone Number [facility] * (ABNORMAL) POCT GLUCOSE, INTERFACED (10/27/2021 13:22 EDT) Glucose, POC 144(H) 70 - 100 mg/dL 10/27/2021 13:26 EDT [facility] HN LAB POC COMMENT (GLUCOSE) Test Performed by Nursing Services 10/27/2021 13:26 EDT [facility] Blood CAPILLARY BLOOD / Unknown 10/27/2021 13:22 EDT 10/27/2021 13:26 EDT Gissel Nunez MD MPH POINT OF CARE TEST ORDERABLES [facility] [address] [place] [address] documented in this encounter Visit Diagnoses Diagnosis Pancreatitis, gallstone- Primary Acute pancreatitis Pancreatitis, gallstone Acute pancreatitis Cholangitis Calculus of gallbladder and bile duct with obstruction without cholecystitis Liver cirrhosis secondary to nonalcoholic steatohepatitis (MITCHELL) (HCC-CMS) Calculus of gallbladder and bile duct without cholecystitis Calculus of gallbladder and bile duct without cholecystitis, without mention of obstruction Calculus of gallbladder and bile duct with obstruction without cholecystitis documented in this encounter Admitting Diagnoses Diagnosis [...] Breath Given 10/27/2021 16:36 EDT 2 Puffs bupivacaine (PF) (MARCAINE) 0.5% injection PRN, Starting on Thu11/03/21 at 2107, Until Thu11/03/21 at 2129, Routine, Intraprocedure Given 11/03/2021 21:07 EDT 1 0 mL busPIRone (BUSPAR) tablet 10 mg 10 mg, oral, 3 TIMES DAILY, First dose on Patria 10/31/21 at 1400, Until Discontinued, Routine Given 11/04/2021 14:17 EDT 10 mg Given 11/04/2021 8:55 EDT 10 mg Given 11/02/2021 20:57 EDT 10 mg dextrose 50 % solution 12.5 g 12.5 g (25 mL), intravenous, PRN, Starting on 11/02/21 at 0601, Until Thu11/04/21 at 1751, Low Blood Sugar, Routine glucagon injection 1 mg 1 mg, intramuscular, [...] at 2014, Until Thu11/04/21 at 1751, Itching insulin aspart U-100 (NOVOLOG FLEXPEN) injection subcutaneous, 3 TIMES DAILY WITH MEALS, First dose on Thu11/04/21 at 0800, Until Discontinued, Routine Given 11/04/2021 12:44 EDT 2 Units Given 11/04/2021 8:55 EDT 2 Units lamoTRIgine (LAMICTAL) tablet 100 mg 100 mg, [...] mg Given 11/04/2021 8:55 EDT 500 mg ondansetron (PF) (ZOFRAN) injection 4 mg 4 mg, intravenous, EVERY 4 HOURS PRN, Starting on Thu10/27/21 at 1133, Until Thu11/04/21 at 1751, Nausea, Vomiting, Routine Given 10/28/2021 5:53 EDT 4 mg Given 10/28/2021 1:18 EDT 4 mg ondansetron (ZOFRAN-ODT) disintegrating tablet 4 mg 4 mg, oral, EVERY 4 HOURS PRN, Starting on Thu10/27/21 at 1133, Until Thu11/04/21 at 1751, Nausea, Routine Given 10/29/2021 20:52 EDT 4 mg Given 10/27/2021 19:34 EDT 4 mg oxyCODONE (ROXICODONE) immediate release tablet 5-10 mg 5-10 mg, oral, EVERY 4 HOURS PRN, Starting on 11/04/21 at 0014, Until 11/04/21 at 1751, Moderate Pain 4-6, Severe Pain 7-10, Routine Given 11/04/2021 11:18 EDT 5 mg Given 11/04/2021 4:31 EDT 10 mg pantoprazole (PROTONIX) tablet 40 mg 40 mg, oral, DAILY BEFORE BREAKFAST, First dose on 10/28/21 at 0730, Until Discontinued, Routine Given 11/04/2021 6:47 EDT 40 mg Given 11/02/2021 8:19 EDT 40 mg Given 11/01/2021 6:45 EDT 40 mg sertraline (ZOLOFT) tablet 100 mg 100 mg, oral, DAILY, First dose on Patria 10/31/21 at 1215, Until Discontinued, Routine Given 11/02/2021 20:57 EDT 100 mg Given 11/01/2021 20:12 EDT 100 mg sodium chloride 0.9 % irrigation PRN, Starting on 11/03/21 at 2032, Until 11/03/21 at 2129, Routine, Intraprocedure Given 11/03/2021 20:5 9 EDT 3,000 mL Given 11/03/2021 20:32 EDT 2,000 mL documented in this encounter Discontinued Medications Medication Sig Discontinue Reason Start Date End Da te carvedilol (COREG) 12.5 mg tablet Take 12.5 mg by mouth daily. Alternate therapy 10/28/2021 naltrexone (REVIA) 50 mg tablet Take 50 mg by mouth daily. Alternate therapy 10/31/2021 polyethylene glycol (GOLYTELY;NULYTELY) 236-22.74-6.74 -5.86 gram suspension Instructions mailed once procedure scheduled. Questions: [facility]: [phone] or GI Doctor's Office. Therapy completed 04/05/2015 [...] Patient off unit)2100 (Not Given - Provider: Divine Marvshanin Comeo, RN - Reason: Other - Comment: Pt in OR) 0010 ([facility] Unhold - Provider: Automatic Transfer [...] - Comment: NPO for possible cholecystectomy today)1955 ([facility] Hold - Provider: Automatic Transfer Provider Hn - Reason: Patient off unit)2100 (Not Given - Provider: Devante Barajas RN - Reason: Other - Comment: Pt in OR) 0010 ([facility] Unhold - Provider: Automatic Transfer [...] Devante Barajas RN)1417 (Given - Provider: Negrito Sanchez RN) insulin aspart U-100 (NOVOLOG FLEXPEN) injection (CANCELED) subcutaneous, EVERY 6 HOURS, First dose on 11/02/21 at 0630, Until Discontinued, Routine, Indications: SUPPLEMENTAL INSULIN 0648 (Not Given - Provider: Cinthia Garcia RN - Reason: Order parameters not met - Comment: bg 137)1323 (Not Given - Provider: Arielle Leta, RN - Reason: Patient/family refused - Comment: [...] Hn - Reason: Patient off unit) 001 ([facility] Unhold - Provider: Automatic Transfer Provider Hn)0647 (Given - Provider: Devante Barajas RN) sertraline (ZOLOFT) tablet 100 mg 100 mg, oral, DAILY, First dose on Thu10/31/21 at 1215, Until Discontinued, Routine 2056 (Given - Provider: Devante Barajas RN) 1955 ([facility] Hold - Provider: Automatic Transfer Provider Hn - Reason: Patient off unit)2100 (Not Given - Provider: Devante Barajas RN - Reason: Other - Comment: Pt in OR) 0010 ([facility] Unhold - Provider: Automatic Transfer Provider Hn) Continuous Medication Order 11/02/2021 11/03/2021 11/04/2021 lactated ringers (LR) infusion (CANCELED) at 75 mL/hr, intravenous, PACU CONTINUOUS, Starting on 11/03/21 at 2145, Until 11/04/21 at 0010, Routine, Recovery (only) 2139 (Continued Infusion - Provider: Savannah Mclean, DEQUAN)2241 (New Bag - Provider: Savannah Mclean, RN)2330 (Completed - Provider: Savannah Mclean, RN) PRN Medication Order 11/02/2021 11/03/2021 11/04/2021 acetaminophen (TYLENOL) tablet 500 mg 500 mg, oral, EVERY 6 HOURS PRN, Starting on 10/27/21 at 1102, Until 11/04/21 at 1751, Pain, Fever, Routine 0645 (Given - Provider: Cinthia [place] RN)1338 (Given - Provider: Arielle Gillette RN)2057 (Given - Provider: Devante Barajas RN - Comment: RUQ abdomen) 0440 (Given - Provider: Devante Barajas RN)1955 ([facility] Hold - Provider: Automatic Transfer Provider Hn - Reason: Patient off unit) 9 ([facility] Unhold - Provider: Automatic Transfer Provider Hn) budesonide-formoterol HFA (SYMBICORT) 160-4.5 mcg/actuation inhaler 2 Puff 2 Puff, inhalation, 2 TIMES DAILY PRN, Starting on 10/27/21 at 1343, Until 11/04/21 at 1751, Shortness of Breath 1955 ([facility] Hold - Provider: Automatic Transfer Provider Hn - Reason: Patient off unit) 9 ([facility] Unhold - Provider: Automatic Transfer Provider [...] 1751, Other, Low blood sugar, Routine 1955 ([facility] Hold - Provider: Automatic Transfer Provider Hn - Reason: Patient off unit) 9 ([facility] Unhold - Provider: Automatic Transfer Provider Hn) hydrocortisone 1 % lotion topical, 4 TIMES DAILY PRN, Starting on 10/29/21 at 2014, Until Thu11/04/21 at 1751, Itching 1955 ([facility] Hold - Provider: Automatic Transfer Provider Hn - Reason: Patient off unit) 9 ([facility] Unhold - Provider: Automatic Transfer Provider Hn) HYDROmorphone (DILAUDID) tablet 2-4 mg (CANCELED) 2-4 mg, oral, EVERY 30 MINUTES PRN, 2 doses, Starting on 11/03/21 at 2122, Until Thu11/04/21 at 0010, Pain, Routine, Recovery (only) 230 (Given - Provider: Savannah Mclean RN) HYDROmorphone [...] Thu11/04/21 at 1751, Nausea, Vomiting, Routine 1955 ([facility] Hold - Provider: Automatic Transfer Provider Hn - Reason: Patient off unit) 0 ([facility] Unhold - Provider: Automatic Transfer Provider Hn) ondansetron (PF) (ZOFRAN) injection 4 mg (COMPLETED) 4 mg, intravenous, PRN, 1 dose, Starting on 11/03/21 at 2122, Until 11/03/21 at 2244, Nausea, Vomiting, Routine, Recovery (only) 224 (Given - Provider: Savannah Mclean, DEQUAN) ondansetron (ZOFRAN-ODT) disintegrating tablet 4 mg(Linked Group 1) 4 mg, oral, EVERY 4 HOURS PRN, Starting on 10/27/21 at 1133, Until 11/04/21 at 1751, Nausea, Routine 1955 ([facility] Hold - Provider: Automatic Transfer Provider Hn - Reason: Patient off unit) 9 ([facility] Unhold - Provider: Automatic Transfer Provider Hn) oxyCODONE (ROXICODONE) immediate release tablet 5-10 mg 5-10 mg, oral, EVERY 4 HOURS PRN, Starting on 11/04/21 at 0014, Until 11/04/21 at 1751, Moderate Pain 4-6, Severe Pain 7-10, Routine 0431 (Given - Provider: Devante Barajas RN - Comment: Surgical site)1118 (Given - Provider: Negrito Sanchez RN) polyethylene glycol 3350 (MIRALAX) packet 17 g 17 g, oral, DAILY PRN, Starting on 10/27/21 at 1102, Until 11/04/21 at 1751, Constipation, Routine 1955 ([facility] Hold - Provider: Automatic Transfer Provider Hn - Reason: Patient off unit) 9 ([facility] Unhold - Provider: Automatic Transfer Provider Hn) ramelteon (ROZEREM) tablet 8 mg 8 mg, oral, AT BEDTIME PRN, Starting on 10/27/21 at 1102, Until Thu11/04/21 at 1751, Sleep, Routine 1955 ([facility] Hold - Provider: Automatic Transfer Provider Hn - Reason: Patient off unit) 9 ([facility] Unhold - Provider: Automatic Transfer Provider Hn) sodium chloride 0.9 % irrigation (CANCELED) PRN, Starting on 11/03/21 at 2031, Until 11/03/21 at 2128, Routine, Intraprocedure 2031 (Given - Provider: Adrien [...] Count Last Ordered Date First Ordered Date heparin injection 5,000 Units 3 11/04/2021 10/31/2021 insulin aspart U-100 (NOVOLO G FLEXPEN) injection 7 11/04/2021 10/27/2021 methocarbamoL (ROBAXIN) tablet 500 mg 1 05/2022 oxyCODONE (ROXICODONE) immed iate release tablet 5-10 mg 1 11/04/2021 atropine 0.1 mg/mL syringe 0.5 mg 2 022 10/30/2021 diphenhydrAMINE (BENADRYL) i njection 12.5 mg 2 11/03/2021 10/30/2021 fentaNYL citrate (PF) injection 25-50 mcg 2 11/03/2021 10/30/2021 HYDROmorphone (DILAUDID) tablet 2-4 mg 1 HYDROmorphone (PF) (DILAUDID ) 0.5 mg/0.5 mL syringe 0.3-0.5 mg 2 11/03/2021 10/30/2021 lactated ringers (LR) infusion 9 11/03/2021 10/27/2021 lamoTRIgine (LAMICTAL) tablet 100 mg 3 10/2510/27/2021 metoclopramide (REGLAN) injection 10 mg 2 0 11/03/2021 10/30/2021 naloxone (NARCAN) injection 0.2 mg 2 202110/30/2021 ondansetron (PF) (ZOFRAN) injection 4 mg 2 11/03/2021 10/27/2021 dextrose 50 % solution 12.5 g 2 11/02/2021 10/27/2021 glucagon injection 1 mg 2 11/02/2021 04/09/2021 busPIRone (BUSPAR) tablet 10 mg 1 enoxaparin (LOVENOX) injection 40 mg 3 01/202210/27/2021 HYDROmorphone (DILAUDID) tablet 4 mg 1 01/2022 sertraline (ZOLOFT) tablet 100 mg 1 022 acetaminophen (TYLENOL) solu tion unit dose cup 995 mg 1 10/30/2021 acetaminophen (TYLENOL) tablet 1,000 mg 1 0 10/30/2021 dextrose 5 % and 0.225 % NaCl infusion 1 dextrose 5 % and 0.45 % NaCl with KCl 20 mEq/L infusion 2 10/30/2021 10/29/2021 diphenhydrAMINE (BENADRYL) injection 25 mg 2 10/30/2021 indomethacin (INDOCIN) recta l suppository suppository 1 10/30/2021 lidocaine (PF) 10 mg/mL (1 % ) injection 2 mg 5 10/30/2021 10/27/2021 sodium chloride 0.9 % (flush) flush 3 mL 2 10/30/2021 sodium chloride 0.9 % (flush) flush 5 mL 2 10/30/2021 sodium chloride 0.9 % (NS) infusion 2 10/30 dextrose 5 % in lactated ringers infusion 3 10/29/2021 10/28/2021 diphenhydrAMINE (BENADRYL) capsule 25 mg 1 10/29/2021 guaiFENesin (MUCINEX) SR tablet 600 mg 1 hydrocortisone 1 % lotion 1 10/29/2021 potassium chloride SA (K-DUR ) tablet 40 mEq 2 10/29/2021 10/28/2021 HYDROmorphone (PF) (DILAUDID ) 0.5 mg/0.5 mL syringe 1 mg 1 10/28/2021 acamprosate (CAMPRAL) tablet 333 mg 1 10/27 acamprosate (CAMPRAL) tablet 666 mg 2 10/27 acetaminophen (TYLENOL) tablet 500 mg 1 09/2021 budesonide-formoterol HFA (S YMBICORT) 160-4.5 mcg/actuation inhaler 1 Puff 1 10/27/2021 budesonide-formoterol HFA (S YMBICORT) 160-4.5 mcg/actuation inhaler 2 Puff 1 10/27/2021 cefTRIAXone (ROCEPHIN) 1,000 mg in sodium chloride (NS MBP) 50 mL IVPB 1 10/27/2021 HYDROmorphone (PF) (DILAUDID ) 0.5 mg/0.5 mL syringe 0.5 mg 1 10/27/2021 HYDROmorphone (PF) (DILAUDID ) 0.5 mg/0.5 mL syringe 0.75 mg 1 10/27/2021 lidocaine 5 % (LIDODERM) patch 1 Patch 1 metroNIDAZOLE (FLAGYL) tablet 500 mg 1 09/2021 ondansetron (ZOFRAN-ODT) dis integrating tablet 4 mg 1 10/27/2021 pantoprazole (PROTONIX) tablet 40 mg 1 09/2021 polyethylene glycol 3350 (DE RALAX) packet 17 g 1 10/27/2021 ramelteon (ROZEREM) tablet 8 mg 1 senna (SENOKOT) tablet 2 Tablet 1 Diet Count Last Ordered Date First Orde [...] 10/31/2021 documented in this encounter Care Teams Pipe Organ Installer Relationship Specialty Start Date End Date Tristan Collins MD PCP - General 06/26/11 05/12/23 documented as of this encounter
--- OUTSIDE RECORDS SUMMARY | 2024-02-29 08:19 | XMS_ITS | Encounter Summary ---
Author Organization [facility] Address [address] [place] [address] Care Team Providers Care Twister Operator Name Role Phone Tristan Collins MD Primary Care Provider Unav ailable Reason for Visit * (Routine/Next Available) - Receiving Office to Obtain Authorization Specialty Diagnoses / Procedures Referred By Contac t Referred To Contact Procedures CT OUTSIDE IMAGES BODY Unknown, Provider, Referral ID Status Reason Start Date Expiration Date Visits Requested Visits Authorized [id number] Receiving Office to Obtain Authorization 10/27/2021 1 1 Encounter Details Date Type Department Care Team (Latest Contact Info) Description 10/27/2021 7:30 EDT - 10/27/2021 8:48 EDT Hospital Encounter [facility] Secondary Reads [place] Discharge Disposition: Home or Self Care Social History Tobacco Use Types Packs/Day Years Used Date Smoking Tobacco: Never Smokeless Tobacco: Former Comments:Daily x 28 YRS - Qu it 4 YRS ago. Alcohol Use Standard Drinks/Week Comments Not Currently 0 (1 standard drink = 0.6 oz pur e alcohol) Interpersonal Safety Answer Date Record ed Physically [...] was confirmed or suspected to have Coronavirus/COVID-19? Unable to assess 10/27/2021 6:10 EDT documented as of this encounter Functional [...] 1,200 mg by mouth 2 times daily. diclofenac sodium gel Apply topically. 05/10/2020 magnesium oxide (MAG-OX) 400 mg (241.3 mg [...] mg by mouth 2 times daily. 11/06/2021 carvedilol (COREG) 12.5 mg tablet Take 12.5 mg by mouth daily. 10/28/2021 chlorthalidone (HYGROTON) 25 mg tablet Take 25 mg by mouth daily. 11/04/2021 fluticasone-salmetero l (ADVAIR) 250-50 mcg/dose diskus inhaler Inhale 1 Puff as directed 2 times daily. 11/29/2021 folic acid (FOLVITE) 1 mg tablet Take 1 mg by mouth. 05/13/2020 11/30/19 lamoTRIgine (LAMICTAL) 100 mg tablet Take 1 Tablet by mouth daily for 28 days. 28 Tablet 11/04/2021 12/02/2021 methocarbamoL (ROBAXIN) 500 mg tablet Take 500 mg by mouth 3 times daily. 11/29/2021 naltrexone (REVIA) 50 mg tablet Take 50 mg by mouth daily. 10/31/2021 oxyCODONE (ROXICODONE) 5 mg immediate release tablet Take 1-2 Tablets by mouth every 6 hours as needed for up to 8 doses for Pain. Daily Max: 40 mg 8 Tablet 11/04/2021 11/29/2021 oxyCODONE (ROXICODONE) 5 mg immediate release tablet Take 5 mg by mouth every 8 hours as needed for Pain. 11/04/2021 pantoprazole (PROTONIX) 40 mg tablet Take 1 Tablet by mouth daily before breakfast for 28 days. 28 Tablet 11/04/2021 12/02/2021 pantoprazole (PROTONIX) 40 mg tablet Take 1 Tab by mouth BEFORE BREAKFAST & DINNER 60 Tab 3 05/23/2015 11/04/2021 polyethylene glycol (GOLYTELY;NULYTELY) 236-22.74-6.74 -5.86 gram suspension Instructions mailed once procedure scheduled. Questions: [facility] Gastroenterology: [phone] or GI Doctor's Office. 4000 mL 0 04/05/2015 10/31/2021 polyethylene glycol 3350 (MIRALAX) 17 gram packet Take 17 g by mouth daily as needed for Other (constipation). 11/04/2021 11/29/2021 potassium (POTASSIMIN ORAL) Take by mouth. 10/31/2021 sertraline (ZOLOFT) 50 mg tablet Take 100 mg by mouth daily. 11/29/2021 traZODone (DESYREL) 50 mg tablet Take 100 mg by mouth daily. Take one to two before bed. 11/29/2021 documented as of this encounter Discharge Disposition Disposition Code Departure Means Destination Home or Self Care documented in this encounter Plan of Treatment Not on file documented as of this encounter Procedures Procedure Name Priority Date/Time Associated Diagnosis Comments CT OUTSIDE IMAGES BODY Routine 10/27/2021 7:30 EDT documented in this encounter Results * CT OUTSIDE IMAGES BODY (10/27/2021 7:30 EDT) Narrative 10/27/2021 7:30 EDT This is a non-reportable exam. Provider Unknown MD GUY OTHER IMAGING OR DERABLES documented in this encounter Visit Diagnoses Not on filedocumented in this encounter Care Teams Twister Operator Relationship Specialty Start Date End Date Tristan Collins MD PCP - General 06/26/11 05/12/23 documented as of this encounter
--- OUTSIDE RECORDS SUMMARY | 2024-02-29 08:19 | XMS_ITS | Encounter Summary ---
Author Organization [facility] Address [address] [place] [address] Care Team Providers Care Rack Washer Name Role Phone Tristan Collins MD Primary Care Provider Unav ailable Reason for Visit * Reason Onset Date Comments DME 05/21/2021 Recall Encounter Details Date Type Department Care Team (Late st Contact Info) Description 05/21/2021 Telephone [facility] Sleep Program - [address] [place], [place] [id number] Марина Tsai NP 1 [facility] [address] [place] [address] DME (Recall ) Social History Tobacco Use Types Packs/Day Years [...] encounter Miscellaneous Notes * Telephone Encounter - Emilia Pascual RN - 05/21/2021 1233 EDT Message from Марина Tello NP that she recommends pt continue CPAP - relayed Recall Continue message to pt. It has come to our attention that the Tamra CPAP/BiPAP device you are using has been issued recall by the FDA. The sap senior developer recommends: patients who have been using recalled devices should stopusing them and contact their medical providers about the risk versus benefits of use. Please go to Tamra website, or call [phone], to both register your device and learn more about this problem. Given the above, we have reviewed your medical record and it is our recommendation that you continue to use your device for the time being. Ultimately, the decision to use or not use this device while Tamra is working to correct the problem is up to you. We are here to support you either way. If you choose to continue to use your device you should not use of any non- approved cleaning products (such as [place] blade balancer), avoid high heat and high humidity conditions.' If you notice debris, orblack dust, in your device please notify this office immediately. If you choose to stop using your device be advised that untreated sleep apnea may increase your risk of accidents due to drowsiness, and you should not drive or engage in other potentially dangerous activities if impaired. Please contact us if you have additional questions or concerns. Pt verbalized understanding, no barrier to learning. States he had stopped using because of Recall but will restart. Wakes with dry mouth -uses a FFM. Suggested he try increasing his humidification setting, can consider Biotene mouth rinse or Xylimeltsas well. Pt verbalized understanding, no barrier to learning. * Telephone Encounter - Karime Randolph - 05/21/2021 1230 EDT Pt's phone number is correct. Pt is returning your call. documented in this encounter Plan of Treatment Not on file documented as of this encounter Visit Diagnoses Not on filedocumented in this encounter Care Teams Rack Washer Relationship Specialty Start Date End Date Tristan Collins MD PCP - General 06/26/11 05/12/23 documented as of this encounter
--- OUTSIDE RECORDS SUMMARY | 2024-02-29 08:19 | XMS_ITS | Encounter Summary ---
Author Organization [facility] Address [address] [place] [address] Care Team Providers Care Pathologist Assistant Name Role Phone Tristan Collins MD Primary Care Provider Unav ailable Reason for Visit * Reason Onset Date Comments Appointment Related 09/05/2019 Encounter Details Date Type Department Care Team (Late st Contact Info) Description 09/05/2019 Telephone [facility] Sleep Program - [address] [id number] Yelena Argueta MD [address] [place] [address] Appointment Related Social History Tobacco Use Types [...] encounter Miscellaneous Notes * Telephone Encounter - Eli Meme - 09/12/2019 1241 EST Called pt x2 to schedule SPLIT PSG 2:1 TcC02 RES INN LMOM w/ details to call back for scheduling * Telephone Encounter - Meme Benitez - 09/05/2019 1017 EST Called pt to schedule SPLIT PSG 2:1 TcC02 RES INN LMOM w/ details to call back for scheduling documented in this encounter Plan of Treatment Not on file documented as of this encounter Visit Diagnoses Not on filedocumented in this encounter Care Teams Pathologist Assistant Relationship Specialty Start Date End Date Tristan Collins MD PCP - General 06/26/11 05/12/23 documented as of this encounter
--- OUTSIDE RECORDS SUMMARY | 2024-02-29 08:19 | XMS_ITS | Encounter Summary ---
Author Organization [facility] Address [address] [place] [address] Care Team Providers Care Child Care Associate Name Role Phone Tristan Collins MD Primary Care Provider Unav ailable Reason for Visit * Reason Onset Date Comments Appointment Related 08/09/2019 Encounter Details Date Type Department Care Team (Late st Contact Info) Description 08/09/2019 Telephone [facility] Sleep Program - [address] [id number] Yelena Argueta MD [address] [place] [address] Appointment Related Social History Tobacco [...] encounter Miscellaneous Notes * Telephone Encounter - Meme Benitez - 08/09/2019 1139 EST Pt called to schedule NPV/CONSULT - 2.5.20 @ 1100 documented in this encounter Plan of Treatment Not on file documented as of this encounter Visit Diagnoses Not on filedocumented in this encounter Care Teams Child Care Associate Relationship Specialty Start Date End Date Tristan Collins MD PCP - General 06/26/11 05/12/23 documented as of this encounter
--- OUTSIDE RECORDS SUMMARY | 2024-02-29 08:19 | XMS_ITS | Encounter Summary ---
Author Organization [facility] Address [address] [place] [address] Care Team Providers Care Utility Worker Production Name Role Phone Tristan Collins MD Primary Care Provider Unav ailable Reason for Visit * Reason Onset Date Comments Discuss Possible Transfer 10/27/2021 Encounter Details Date Type Department Care Team (Late st Contact Info) Description 10/27/2021 Telephone [facility] MED [address] [place], [place] [phone] Case Alves MD [address] [address] Discuss Possible Transfer Social History Tobacco Use Types Packs/Day Years [...] encounter Miscellaneous Notes * Telephone Encounter - Case Alves MD - 10/27/2021 0605 EDT 10/27/2021 Regional transfer center call Calling facility [place], [place] Calling physician: Dr. Petty, emergency department attending physician at [facility] Regarding: Yasmani Glaser, a 51 y.o. male Available past medical history: MITCHELL with cirrhosis, lumbar fusion, prior alcohol dependence with 1-1/2 years of sobriety, prior episode of alcoholic pancreatitis Mr. Glaser presented to the emergency department at [facility] complaining of 3 weeks of persistent nausea and vomiting, poor p.o. intake, and abdominal pain. The pain became more severe and he presented to the hospital. He was found to have jaundiced skin and a tender abdomen. Vital signs: Temperature 36 7, pulse 84, respirations 16, blood pressure 119/79, oxygen saturation 97% on room air Laboratory data includes lipase greater than 15,000, total bilirubin 6.4, alkaline phosphatase 241,AST 82, ALT 114, white blood cell count 12,600 with 87% neutrophils, BUN 14, creatinine 1.0, alcohol level negative, acetaminophen level negative. CT scan of the abdomen reveals distended gallbladder with dependent stones. The gallbladder wall appeared qualitatively normal in thickness per the emergency room physician. There was noted to be intra and extra hepatic ductal dilatation and area which was not specified indicated that and extrahepatic ducts was at a diameter of 1.1 cm. Specifically there was noted to be no pericholecystic fluid. Inflammatory changes were noted around the pancreas. Patient is accepted for urgent but not emergent transfer to the [facility] medicine service. This gives an availability of [address] Petty understands that if his patient becomes more acutely ill he may need to seek transfer to a different facility if this time frame is not acceptable. Please contact the [facility] medicine admission pager when this patient arrives Case Alves M.D. Internal Medicine [facility] Hospitalist documented in this encounter Plan of Treatment Not on file documented as of this encounter Visit Diagnoses Not on filedocumented in this encounter Care Teams Utility Worker Production Relationship Specialty Start Date End Date Tristan Collins MD PCP - General 06/26/11 05/12/23 documented as of this encounter
--- OUTSIDE RECORDS SUMMARY | 2024-02-29 08:19 | XMS_ITS | Encounter Summary ---
Author Organization [facility] Address [address] [place] [address] Care Team Providers Care Skirt Clipper Name Role Phone Tristan Collins MD Primary Care Provider Unav ailable Encounter Details Date Type Department Care Team (Latest Contact Info) Description 11/11/2016 19:35 EDT - 11/11/2016 23:59 EDT Hospital Encounter [facility] [address] [place] [address] Unknown, Provider, Discharge Disposition: Home or Self Care Social History Tobacco Use Types Packs/Day Years Used Date Smoking Tobacco: Never Smokeless Tobacco: Former Comments:Daily x 28 YRS - Qu it 4 YRS ago. Alcohol Use Standard Drinks/Week Comments Yes 0 (1 standard drink = 0.6 oz pur e alcohol) OCCASIONAL Sex and Gender Information Value Date Recorded Sex Assigned at Not on file Gender Identity Not on file Sexual Orientation Not on file documented as of this encounter Functional Status Functional Status Response Date of Assess ment Because of a physical, menta l, or emotional condition, does this person have difficulty doing errands alone such as visiting a doctor's office or shopping? No 09/20/2015 Cognitive Status Response Date of Assessm ent Because of a physical, menta l, or emotional condition, does this person have serious difficulty concentrating, remembering, or making decisions? No 09/20/2015 documented as of this encounter Medications at Time of Discharge Medication Sig Dispensed Refills Start Date End Date chlorthalidone (HYGROTON) 25 mg tablet Take 25 mg by mouth daily. 11/04/2021 citalopram (CELEXA) 20 mg tablet Take 20 mg by mouth daily. 11/30/2020 DIAZepam (VALIUM) 5 mg tablet Take 5 mg by mouth every 6 hours as needed for Anxiety. 11/30/2020 fluticasone-salmeterol (ADVAIR) 250-50 mcg/dose diskus inhaler Inhale 1 Puff as directed 2 times daily. 11/30/19 gabapentin (NEURONTIN) 300 mg capsule Take 1 Cap by mouth 3 times daily. Take one tablet at night for 3-5 days, then titrate slowly up to TID dosing as tolerated and/or to effect. 90 Cap 2 09/16/2011 11/30/2020 HYDROcodone-acetaminop hen (ZYDONE) 10-400 mg per tablet Take 1-2 Tabs by mouth every 6 hours as needed for Pain 11/30/2020 pantoprazole (PROTONIX) 40 mg tablet Take 1 Tab by mouth BEFORE BREAKFAST & DINNER 60 Tab 3 05/23/2015 11/04/2021 polyethylene glycol (GOLYTELY;NULYTELY) 236-22.74-6.74 -5.86 gram suspension Instructions mailed once procedure scheduled. Questions: [facility] Gastroenterology: [phone] or GI Doctor's Office. 4000 mL 0 04/05/2015 10/31/2021 documented as of this encounter Discharge Disposition Disposition Code Departure Means Destination Home or Self Long-Term documented in this encounter Plan of Treatment Not on file documented as of this encounter Visit Diagnoses Not on filedocumented in this encounter Care Teams Skirt Clipper Relationship Specialty Start Date End Date Tristan Collins MD PCP - General 06/26/11 05/12/23 documented as of this encounter
--- OUTSIDE RECORDS SUMMARY | 2024-02-29 08:19 | XMS_ITS | Encounter Summary ---
Author Organization [facility] Address [address] [place] [address] Care Team Providers Care Screw Machine Operator Swiss Type Name Role Phone Tristan Collins MD Primary Care Provider Unav ailable Encounter Details Date Type Department Care Team (Late st Contact Info) Description 11/11/2016 Historical Results Only [facility] Radiology Results [address] [place], [place] [phone] Noe Couch MD Social History Tobacco Use Types Packs/Day Years [...] No 09/20/2015 documented as of this encounter Plan of Treatment Not on file documented as of this encounter Procedures Procedure Name Priority Date/Time Associated Diagnosis Comments US ABDOMEN LIMITED 11/11/2016 8:43 EDT documented in this encounter Results * US ABDOMEN LIMITED (11/11/2016 8:43 EDT) Anatomical Region Laterality Modality Abdomen, Body Other 11/11/2016 8:43 EDT Narrative 11/11/2016 8:53 EDT ? EXAM: ULTRASOUND/RIGHT UPPER QUADRANT ? EX. D/ (0827) ? CLINICAL INFORMATION: ? CIRRHOSIS ? INDICATION: CIRRHOSIS CIRRHOSIS ? TECHNIQUE: ??Sonographic examination of the right upper quadrant was ? performed. Color and spectral waveform Doppler imaging was utilized. ? COMPARISON: None ? FINDINGS: ? The IVC appears patent. ? The visualized portions of the body and head of the pancreas appear ? normal. ? The liver measures 12.7 cm in maximal craniocaudal dimension and is ? diffusely echogenic, with a coarsened echotexture. No focal hepatic ? lesion is identified. ? The gallbladder is normal in appearance. The gallbladder wall ? measures 2.3 mm in thickness. There is no cholelithiasis or ? pericholecystic fluid. ? The right kidney measures 10.7 cm in long axis length and ? demonstrates normal corticomedullary differentiation and morphology. ? There is no cyst, mass or hydronephrosis. ? IMPRESSION: ?1. Hepatic steatosis and a coarsened liver echotexture, consistent ? with provided history of hepatic cirrhosis. No focal hepatic lesion ? identified. ? REPORT SIGNED IN OTHER VENDOR SYSTEM 11/11/2016 ?Reported By: Delta Crockett MD ? CC: Tristan Collins ? Transcribed Date/Time: 11/11/2016 (0853) ? Gas Appliance Adjuster: ? Printed Date/Time: 01/08/2019 (1046) ? PAGE 1 ? Signed Report ? Procedure Note Delta Crockett E - 06/01/2019 EXAM: ULTRASOUND/RIGHT UPPER QUADRANT EX. D/ (0827) CLINICAL INFORMATION: CIRRHOSIS INDICATION: CIRRHOSIS CIRRHOSIS TECHNIQUE: Sonographic examination of the right upper quadrant was performed. Color and spectral waveform Doppler imaging wasutilized. COMPARISON: None FINDINGS: The IVC appears patent. The visualized portions of the body and head of the pancreas appear normal. The liver measures 12.7 cm in maximal craniocaudal dimension and is diffusely echogenic, with a coarsened echotexture. No focal hepatic lesion is identified. The gallbladder is normal in appearance. The gallbladder wall measures 2.3 mm in thickness. There is no cholelithiasis or pericholecystic fluid. The right kidney measures 10.7 cm in long axis length and demonstrates normal corticomedullary differentiation andmorphology. There is no cyst, mass or hydronephrosis. IMPRESSION: 1. Hepatic steatosis and a coarsened liver echotexture, consistent with provided history of hepatic cirrhosis. No focal hepatic lesion identified. REPORT SIGNED IN OTHER VENDOR SYSTEM 11/11/2016 Reported By: Delta Crockett MD CC: Tristan Collins Transcribed Date/Time: 11/11/2016 (0853) Gas Appliance Adjuster: Printed Date/Time: 01/08/2019 (1046) PAGE 1 Signed Report Noe Couch MD IMG US ORDERABLES documented in this encounter Visit Diagnoses Not on filedocumented in this encounter Care Teams Screw Machine Operator Swiss Type Relationship Specialty Start Date End Date Tristan Collins MD PCP - General 06/26/11 05/12/23 documented as of this encounter
--- OUTSIDE RECORDS SUMMARY | 2024-02-29 08:19 | XMS_ITS | Encounter Summary ---
Author Organization [facility] Address [address] [place] [address] Care Team Providers Care Public Works Director Name Role Phone Tristan Collins MD Primary Care Provider Unav ailable Reason for Visit * Reason Comments Back Pain Leg Pain * Consult (Routine) - Closed Specialty Diagnoses / Procedures [facility] Referred To Contact Pain Medicine Diagnoses Back pain, acute Procedures FOLLOW UP Tristan Collins MD [address] [place] [address] [facility] [address] [place] [address] Referral ID Status Reason Start Date Expiration Date Visits Re quested Visits Authorized [id number] Closed 1 1 Encounter Details Date Type Department Care Team (Latest Contact Info) Description 02/22/2018 12:45 EDT Office Visit [facility] Interventional Pain [address] [place] [place] [address] Paulo Mcgee, DO [address] [place] [address] [address] [place] [address] DDD (degenerative disc disease), lumbosacral (Primary Dx); Failed back syndrome; Spondylosis of lumbosacral region without myelopathy or radiculopathy Social History Tobacco Use Types Packs/Day Years [...] Sign Reading Time Taken Comments Blood Pressure 125/74 02/22/2018 1251 EDT Pulse 77 02/22/2018 1251 EDT Temperature 36.9 ??C (98.4 ??F) 02/22/2018 1251 EDT Respiratory Rate - - Oxygen Saturation - [...] No 02/22/2018 documented as of this encounter Progress Notes * Aurora Regalado MD - 02/22/2018 1245 EDT [facility] OP PAIN Procedure Patient Name: Yasmani Glaser : 1970 Date of Service: 02/22/2018 Chief Complaint Patient presents with ??? Back Pain ??? Leg Pain Referring Physician: Tristan Collins Interval History: Mr. Yasmani Glaser returns to clinic today from an initial request of Tristan Collins for continued evaluation and consideration of interventional therapy for predominant chronic bilateral Back Pain and Leg Pain The patient was last seen in our clinic for consultation 09/20/2015 by Abilio Lawrence MD please see his note for additional details of the patient's pain complaints at that time. The patient's current complaints today are similar in character, distribution and intensity as the symptoms treated at our last visit. This pain has had a negative impact on the patients quality of life as he has not been able to complete his daily activities. Keeps awake at night, Wakes from sleep, Prevents or limits ADLs, Increases w/prolonged sitting/standing/walking Location of Pain: Bilateral Back Pain and Leg Pain; The pain starts in the low back and travels down the posterior aspect of the bilateral thighs, equally. Tingling and burning in the bilateral feet. 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 He has tried gabapentin but has intolerable depressed mental state and hallucinations. He has tried lyrical with lip swelling. He feels that physical therapy has helped in the past. He enjoys spending time with his goats and this helps him with physical activity. Injections made hispain worse in the past. The pain is no worse now that when he was taking opioids. The pain is 5/10 on average. Mostly he is concerned about losing functionality. He isn't able to shop with his the way that he used to and has started riding in electric wheelchairs while at the store. Any additional adjunctive therapy or medication changes since our last visit are summarized below. Interventional History: Numerous back surgeries/revisions (see past surgical hx) (Patient reports other injections but does not remember exactly where) 10/09/2011: Left sacroiliac joint injection No improvement 08/18/2011: Transforaminal epidural steroid injection at the left L5-S1 foramen: Worsening of pain Medications associated with Chronic pain syndrome: Naproxen Ibuprofen (currently taking concurrently, pt agrees to discontinue one or the other) Previous: Gabapentin Lyrica Opioids Integrative therapies: PT (previously with some benefit) Tending the goats TENS unit - relief when on Diagnostic studies:See EMR for details Past Surgical History: Procedure Laterality Date ??? BONE INCISION AND DRAINAGE x3 ??? COLONOSCOPY 2014 ??? HIP SURGERY ??? LIVER BIOPSY 07/2015 ??? LUMBAR FUSION ??? OTHER SURGICAL HISTORY SI joint infusion x3 No Known Allergies Outpatient Prescriptions Marked as Taking for the 02/22/18 encounter (Office Visit) with Paulo Mcgee, DO Medication Sig Dispense Refill ??? carvedilol (COREG) 12.5 mg tablet Take 12.5 mg by mouth daily. ??? chlorthalidone (HYGROTON) 25 mg tablet Take 25 mg by mouth daily. ??? citalopram (CELEXA) 20 mg tablet Take 20 mg by mouth daily. ??? NAPROXEN ORAL Take 500 mg by mouth as needed. ROS: CONSTITUTIONAL: Patient does not report fevers, nausea, vomiting. NEURO/EYES: Patient does not report headaches, dizziness, or visual changes. No new weakness or sensory changes HEME: Patient does not report any known coagulopathies. PULM/CARDIAC: Patient does not report shortness of breath or chest pain. GI/: Patient does not report bowel or bladder incontinence. Physical Exam: Vitals: Blood pressure 125/74, pulse 77, temperature 36.9 ??C (98.4 ??F), temperature source Tympanic. PE: GEN: Alert and interactive. NAD. Rises from a seated position with difficulty. Patient has a severely antalgic gait. SKIN: Warm and dry. No signs of petechiae, bruising or infection in the lumbosacral region. NEURO: Motor 5/5 bilateral lower extremity; Sensation intact to light touch in the bilateral lower extremity. MS: Lumbar spine with midline surgical scar, well healed. Otherwise normal external appearance. (+)TTP over the lumbosacral area. PULM: Even non-labored respirations Assessment: Patient is a 47 y.o. year old male with a chronic pain syndrome and a primary complaintof bilateral back pain and leg pain. The patient returns today for further evaluation and recommendations secondary to the residual pain complaints. Given the patients overall presentation, he seems to finding methods to minimize his pain and maximize his physical activity. He is able to get aroundwith the use of assistive devises. He has tried many therapies without much success and given his negative response to injections in the past (unclear exactly what/where his injections occurred) we would defer any additional injection therapies at this time. We feel that continued medication optimization with repeat physical therapy may help to improve his mobility and physical activity. If his symptoms evolve we remain available for further consideration of interventional therapy. Associated diagnoses: ICD-10-CM ICD-9-CM 1. DDD (degenerative disc disease), lumbosacral M51.37 722.52 2. Failed back syndrome M96.1 722.80 3. Spondylosis of lumbosacral region without myelopathy or radiculopathy M47.817 721.3 PLAN/RECCOMENDATIONS: Interventional Therapy: -This has not helped him in the past. We will defer further interventions at this time. If his painworsens or his functional status further deteriorates, could consider further interventions (possibly interlaminar epidural steroid injection but no real target identifiable). Could consider repeat MRI as last imaging available 2010, although it his symptoms do not appear to have changed significantly since that scan. Medication therapy: -The patient is currently taking naproxen and ibuprofen ( 800 q4h). We discussed the detrimental effects of taking inappropriately high doses of NSAID mediations. He agreed to discontinue ibuprofen at this time as he feels the naproxen helps him the most. -The patient has not tolerated gabapentin or Lyrica. Consider amitriptyline as recommended back in 2016 (patient can not remember if he tried this mediation previously). He might also benefit from transition to Cymbalta as this has shown some benefit in treating pain syndromes. Integrative therapies: -Would recommend an round of PT/OT as this has benefited the patient in the past. -The patient is motivated to loose weight and eat a healthier diet. Initial and Post procedure pain report: Pain Score (from Vitals) 02/22/2018 02/22/2018 Initial score 6 - Final score - 6 Location - BACK Comment - - AURORA REGALADO MD 02/22/2018 17:03 Attending attestation: I saw and examined the patient with the resident/fellow. I agree with the findings and plan of care documented in the resident's/fellow's note. Paulo Mcgee DO 02/22/2018 documented in this encounter Plan of Treatment Not on file documented as of this encounter Visit Diagnoses Diagnosis DDD (degenerative disc disease), lumbosacral- Primary Degeneration of lumbar or lumbosacral intervertebral disc Failed back syndrome Other unspecified back disorder Spondylosis of lumbosacral region without myelopathy or radiculopathy Lumbosacral spondylosis without myelopathy documented in this encounter Historical Medications * This list may reflect changes made after this encounter. Medication Sig Dispensed Refills Start Date End Date NAPROXEN ORAL Take 500 mg by mouth as needed. 11/30/2020 carvedilol (COREG) 12.5 mg tablet Take 12.5 mg by mouth daily. 10/28/2021 added in this encounter Care Teams Public Works Director Relationship Specialty Start Date End Date Tristan Collins MD PCP - General 06/26/11 05/12/23 documented as of this encounter
--- OUTSIDE RECORDS SUMMARY | 2024-02-29 08:19 | XMS_ITS | Encounter Summary ---
Author Organization [facility] Address [address] [place] [address] Care Team Providers Care Management Tech Name Role Phone Tristan Collins MD Primary Care Provider Unav ailable Encounter Details Date Type Department Care Team (Late st Contact Info) Description 11/22/2020 Telephone [facility] - [address] [place], [place] [id number] Sleep, Tech [address] [place], [place] [id number] Social History Tobacco Use Types Packs/Day Years [...] * Telephone Encounter - Alley Simon - 11/22/2020 1704 EDT LVM for patient to call and schedule curbside download prior to appointment with ES next Tuesday 11/28. Currently there are only available appointments on Thursday afternoon. Advised in message that televideo appointment on 11/28 would need to be rescheduled if download not completed by tomorrow. documented in this encounter Plan of Treatment Not on file documented as of this encounter Visit Diagnoses Not on filedocumented in this encounter Care Teams Management Tech Relationship Specialty Start Date End Date Tristan Collins MD PCP - General 06/26/11 05/12/23 documented as of this encounter
--- OUTSIDE RECORDS SUMMARY | 2024-02-29 08:19 | XMS_ITS | Encounter Summary ---
Author Organization [facility] Address [address] [place] [address] Care Team Providers Care Apple Sorter Name Role Phone Tristan Collins MD Primary Care Provider Unav ailable Reason for Visit * Reason Onset Date Comments Appointment Related 07/08/2019 Encounter Details Date Type Department Care Team (Late st Contact Info) Description 07/08/2019 Telephone [facility] Sleep Program - [address] [id number] Unknown, Doctor Appointment Related Social History Tobacco Use Types [...] encounter Miscellaneous Notes * Telephone Encounter - Jacob Lama - 07/08/2019 1308 EST Pt called to see how he would get established as a Pt at the Sleep Ctr - advised that he must go through his PCP and be referred into the clinic - Pt is on CPAP for many yrs and is looking to have re-evaluation (study) and to get new equipment as well. Pt to contact his PCP and go from there. documented in this encounter Plan of Treatment Not on file documented as of this encounter Visit Diagnoses Not on filedocumented in this encounter Care Teams Apple Sorter Relationship Specialty Start Date End Date Tristan Collins MD PCP - General 06/26/11 05/12/23 documented as of this encounter
--- OUTSIDE RECORDS SUMMARY | 2024-02-29 08:19 | XMS_ITS | Encounter Summary ---
Author Organization [facility] Address [address] [place] [address] Care Team Providers Care Senior Project Coordinator Name Role Phone Tristan Collins MD Primary Care Provider Vilma Riojas Primary Care Provider [phone] Encounter Details Date Type Department Care Team (Late st Contact Info) Description 05/10/2020 Lab Requisition [facility] Pathology & Laboratory Medicine - [facility] [address] [place] [address] Outr Resulting Lab, Provider Social History Tobacco [...] No 02/22/2018 documented as of this encounter Plan of Treatment Not on file documented as of this encounter Procedures Procedure Name Priority Date/Time Associated Diagnosis Comments ZZCOVID-19 TEST [facility] PCR Today 05/10/2020 13:36 EDT COVID-19 TESTING Routine 05/10/2020 13:3 6 EDT documented in this encounter Results * COVID-19 TEST [facility] PCR (05/10/2020 13:36 EDT) Swab ENTIRE NASOPHARYNX / Unknown 05/10/2020 13:36 EDT 05/10/2020 20:41 EDT Provider Outr Resulting Lab MICROBIOLOGY - GENERAL ORDERABLES Performing Organization Address City/State/[facility] Co de Phone Number [facility] [address] [place] [address] * COVID-19 TESTING (05/10/2020 13:36 EDT) COVID-19 rt-PCR Result Negative Negative 05/11/2020 0:38 EDT [facility] Comment: This test [...] history, and epidemiological information. Performed on the SpectraRepher Fusion instrument Performing Lab [place] [facility] 05/11/2020 0:38 EDT [facility] Swab 05/10/2020 13:3 6 EDT 05/10/2020 20:41 EDT Provider Outr Resulting Lab MICROBIOLOGY - GENERAL ORDERABLES [facility] [address] [place] [address] documented in this encounter Visit Diagnoses Not on filedocumented in this encounter Care Teams Senior Project Coordinator Relationship Specialty Start Date End Date Tristan Collins MD PCP - General 06/26/11 05/12/23 Vilma Givens [address] [place], [place] [id number] PCP - General Internal Medicine - Primary Care 05/13/23 documented as of this encounter
--- OUTSIDE RECORDS SUMMARY | 2024-02-29 08:19 | XMS_ITS | Encounter Summary ---
Author Organization [facility] Address [address] [place] [address] Care Team Providers Care Briquette Machine Operator Helper Name Role Phone Tristan Collins MD Primary Care Provider Unav ailable Reason for Visit * Reason Onset Date Comments DME 05/09/2021 Recall, other Encounter Details Date Type Department Care Team (Late st Contact Info) Description 05/09/2021 Telephone [facility] Sleep Program - [address] [address] Emilia Pascual RN [address] [place] [address] DME (Recall, other ) Social History Tobacco Use Types Packs/Day [...] Encounter - Emilia Pascual RN - 05/21/2021 0937 EDT Four attempts to reach pt, no return calls. Update sent to Марина Tello NP. * Telephone Encounter - Emilia Pascual RN - 05/20/2021 1507 EDT Left (4th) message on Alycia number asking pt to call me. * Telephone Encounter - Emilia Pascual RN - 05/14/2021 1437 EDT Left a third message asking patient to call me at the Sleep Program. * Telephone Encounter - Emilia Pascual RN - 05/13/2021 0925 EDT Left a message asking patient to call me at the Sleep Program. * Telephone Encounter - Emilia Pascual RN - 05/09/2021 1104 EDT Left a message asking patient to call me at the Sleep Program. (RN TO RELAY TO PT: Message from Марина Tello NP that she recommends pt continue CPAP - to relayRecall Continue message to pt. ) * Telephone Encounter - Emilia Pascual RN - 05/09/2021 0919 EDT Called [facility] in [place]. Spoke with Tomi at [facility]. Pt was set up with a new Tamra CPAP machine inMay (this was before the Recall info came out). Message to provider asking if to relay the Continuescript or the Discontinue script. documented in this encounter Plan of Treatment Not on file documented as of this encounter Visit Diagnoses Not on filedocumented in this encounter Care Teams Briquette Machine Operator Helper Relationship Specialty Start Date End Date Tristan Collins MD PCP - General 06/26/11 05/12/23 documented as of this encounter
--- OUTSIDE RECORDS SUMMARY | 2024-02-29 08:19 | XMS_ITS | Encounter Summary ---
Author Organization [facility] Address [address] [place] [address] Care Team Providers Care Neon Light Installer Name Role Phone Tristan Collins MD Primary Care Provider Vilma Riojas Primary Care Provider [phone] Encounter Details Date Type Department Care Team (Late st Contact Info) Description 07/07/2019 Lab Requisition [facility] Pathology & Laboratory Medicine - [facility] [address] [place] [address] Unknown, Provider, Social History Tobacco Use Types Packs/Day Years [...] Procedure Name Priority Date/Time Associated Diagnosis Comments H. PYLORI ANTIGEN Routine 07/06/2019 0:00 EST documented in this encounter Results * (ABNORMAL) H. PYLORI ANTIGEN (07/06/2019 0:00 EST) H. Pylori Positive(A ) Negative 07/12/2019 12:17 EST [facility] Feces STOOL SPECIMEN / Unknown 07/06/2019 07/07/2019 21:36 EST Narrative [facility] - 07/12/2019 12:17 EST Results were obtained with the [employer] HpSA Plus LEXII. Provider Unknown MICROBIOLOGY - [facility] AL ORDERABLES Performing Organization Address City/State/[facility] Co de Phone Number [facility] [address] [place] [address] documented in this encounter Visit Diagnoses Not on filedocumented in this encounter Care Teams Neon Light Installer Relationship Specialty Start Date End Date Tristan Collins MD PCP - General 06/26/11 05/12/23 Vilma Givens [address] [place] [address] PCP - General Internal Medicine - Primary Care 05/13/23 documented as of this encounter
--- OUTSIDE RECORDS SUMMARY | 2024-02-29 08:19 | XMS_ITS | Encounter Summary ---
Author Organization [facility] Address [address] [place] [address] Care Team Providers Care Guest Service Team Leader Name Role Phone Tristan Collins MD Primary Care Provider Unav ailable Encounter Details Date Type Department Care Team (Latest Contact Info) Description 10/30/2021 Travel Social History Tobacco Use Types Packs/Day Years [...] on filedocumented in this encounter Care Teams Guest Service Team Leader Relationship Specialty Start Date End Date Tristan Collins MD PCP - General 06/26/11 05/12/23 documented as of this encounter
--- OUTSIDE RECORDS SUMMARY | 2024-02-29 08:19 | XMS_ITS | Encounter Summary ---
Author Organization [facility] Address [address] [place] [address] Care Team Providers Care Ebd Special Education Teacher Name Role Phone Tristan Collins MD Primary Care Provider Unav ailable Reason for Visit * Reason Onset Date Comments Appointment Related 12/05/2019 Encounter Details Date Type Department Care Team (Late st Contact Info) Description 12/05/2019 Telephone [facility] Sleep Program - [address] [place], [place] [id number] Марина Tsai NP [address] [facility] [address] [place] [address] Appointment Related Social History [...] * Telephone Encounter - Meme Benitez - 12/07/2019 0949 EDT Called pt x2 to inform of cancellation LMOM * Telephone Encounter - Meme Benitez - 12/05/2019 1525 EDT Called pt to cancel 6.9.20 appt @ 1430 - PANDEMIC LMOM w/ details to call back to confirm pt received message documented in this encounter Plan of Treatment Not on file documented as of this encounter Visit Diagnoses Not on filedocumented in this encounter Care Teams Ebd Special Education Teacher Relationship Specialty Start Date End Date Tristan Collins MD PCP - General 06/26/11 05/12/23 documented as of this encounter
--- OUTSIDE RECORDS SUMMARY | 2024-02-29 08:19 | XMS_ITS | Encounter Summary ---
Author Organization [facility] Address [address] [place] [address] Care Team Providers Care District Fire Chief Name Role Phone Tristan Collins MD Primary Care Provider Unav ailable Encounter Details Date Type Department Care Team (Latest Contact Info) Description 04/28/2016 7:31 EDT - 04/28/2016 23:59 EDT Hospital Encounter [facility] [address] [place] [address] Unknown, Provider, Discharge Disposition: Home or Self [...] suspension Instructions mailed once procedure scheduled. Questions: [facility] Gastroenterology: [phone] or GI Doctor's Office. 4000 mL 0 04/05/2015 10/31/2021 documented as of this encounter Discharge Disposition Disposition Code Departure Means Destination Home or Self Jail documented in this encounter Plan of Treatment Not on file documented as of this encounter Visit Diagnoses Not on filedocumented in this encounter Care Teams District Fire Chief Relationship Specialty Start Date End Date Tristan Collins MD PCP - General 06/26/11 05/12/23 documented as of this encounter
--- OUTSIDE RECORDS SUMMARY | 2024-02-29 08:19 | XMS_ITS | Encounter Summary ---
Author Organization [facility] Address [address] [place] [address] Care Team Providers Care Mixing Machine Feeder Name Role Phone Tristan Collins MD Primary Care Provider Unav ailable Reason for Visit * Reason Onset Date Comments Appointment Related 12/27/2020 Encounter Details Date Type Department Care Team (Late st Contact Info) Description 12/27/2020 Telephone [facility] Sleep Program - [address] [id number] Марина Tsai NP 1 [facility] [address] [place] [address] Appointment Related Social History Tobacco [...] Telephone Encounter - Sheree Olea MA - 12/27/2020 1400 EDT Called pt x1 to scheduled FUR/complinace-zoom Left VM with details for pt to call back to schedule. documented in this encounter Plan of Treatment Not on file documented as of this encounter Visit Diagnoses Not on filedocumented in this encounter Care Teams Mixing Machine Feeder Relationship Specialty Start Date End Date Tristan Collins MD PCP - General 06/26/11 05/12/23 documented as of this encounter
--- OUTSIDE RECORDS SUMMARY | 2024-02-29 08:19 | XMS_ITS | Encounter Summary ---
Author Organization [facility] Address [address] [place] [address] Care Team Providers Care Regional Vice President Life Sales Name Role Phone Tristan Collins MD Primary Care Provider Unav ailable Reason for Visit * Reason Comments Split Night Polysomnogram * Sleep Study (Routine/Next Available) - Specialty Report Received Specialty Diagnoses / Procedures Referred By Hemant linn Referred To Contact Sleep Medicine Diagnoses Chronic insomnia Procedures SPLIT NIGHT POLYSOMNOGRAM (DIAGNOSTIC POLYSOMNOGRAM WITH SPLIT TO CPAP/BIPAP TITRATION) Yelena Argueta MD [address] [place] [address] [facility] [address] [place] [id number] Referral ID Status Reason Start Date Expiration Date V isits Requested Visits Authorized [id number] Specialty Report Received 09/01/2019 1 1 Encounter Details Date Type Department Care Team (Late st Contact Info) Description 10/07/2019 20:00 EDT Office Visit [facility] - [facility] [address] [place] [address] Polysomnogram, Res [facility] Obstructive sleep apnea (Primary Dx) Social History [...] - Inhaled Oxygen Concentration - - Weight 89.8 kg (198 lb) 10/07/20192038 EDT Height 165.1 cm (5' 5) 10/07/20192038 EDT Body Mass Index 32.95 10/07/20192038 EDT documented in this encounter Functional Status [...] as of this encounter Progress Notes * Varsha Domingo MD - 10/07/20191999 EDT Split Night Polysomnogram on 10/07/2019 patient weight 198 INDICATION FOR STUDY: The patient is a 49-year-old man who was diagnosed with obstructive sleep apnea several years ago and was treated with CPAP. He discontinued CPAP a couple of years ago. Since his prior evaluation has had a significant weight loss, split-night polysomnogram was requested in order to reevaluate the status of his sleep disordered breathing. The patient endorses loud snoring anddisrupted sleep. Comorbidities include hepatic cirrhosis, back pain, anxiety, depression, GERD, hypertension, and this is not an inclusive list. FINDINGS: *The EEG was bland with a paucity of formed elements of sleep, and was otherwise unremarkable. Sleep onset latency was prolonged at 40 minutes, and sleep efficiency was reduced to 72% during the diagnostic portion of the study as a result of this and occasional arousals and brief awakenings that were generally associated with respiratory events. Sleep efficiency improved to 87% during the therapeutic portion of the study. Stage N1 or light, transitional sleep, was markedly increased during boththe diagnostic and therapeutic portions of the study at over 40% of sleep observed. REM sleep onsetlatency was normal and REM was reduced proportionally, stage N3 was not observed. The alterations in sleep architecture nonspecific in the setting. *The EKG was notable for occasional PVCs, his average heart rate during the diagnostic portion study was 72, it was 66 during the therapeutic portion. *The patient was found to have sleep disordered breathing in the form of hypopneas, which were muchmore frequent during REM sleep. The apnea hypopnea index (AHI), overall, was 23 consistent with moderate obstructive sleep apnea was 44 during supine sleep and 7 when sleeping on his right side. The REM AHI was 44. His mean oxygen saturation during the diagnostic portion of the study was 88 during sleep with a maikol of 66 and 52 minutes were spent below 89% saturated. Oxygen desaturation was mostprofound during supine sleep particularly during stage REM while in the supine position. CPAP was applied via full facemask at 2:15 AM. This was titrated from 5 to 10 cm of water pressure in responseto obstructive events.. His airway appeared to be reasonably well controlled at 5 cm of water pressure during non-REM nonsupine sleep with oxygen saturations around 92, there were hypopneas during REM in the supine position at 8 cm of water pressure associated with oxygen desaturation. His airway appeared to be reasonably well controlled with just a few hypopneas during REM in the supine positionat 10 cm of water with adequate oxygenation. CPAP appeared to be effective and well-tolerated. Transcutaneous CO2 monitoring was performed, levels were generally below 45 mmHg, hypoventilation was not evident. *Excessive limb movements were not observed. RECOMMENDATIONS: *The patient will be notified by the staff at the [facility] of the results of the test. *Auto titrating CPAP with a pressure range of 5-15 cm of water will be prescribed. *Follow-up will be arranged at the at the [facility]. Varsha Domingo MD, [facility] This Sleep Study Report (including details) can be viewed under the Procedures Tab in the EMR ([employer]) as a scanned file attachment. If the Sleep Study Report cannot be accessed, a copy can be obtainedby contacting [facility] at [phone]. documented in this encounter Plan of Treatment Not on file documented as of this encounter Procedures Procedure Name Priority Date/Time Associated Diagnosis Comments SLEEP STUDY REPORT - SCANNED 10/26/2019 14:14 EDT documented in this encounter Results * SLEEP STUDY REPORT - SCANNED (10/26/2019 14:14 EDT) 10/26/2019 14:1 4 EDT Scan 2 Seating Captain PROCEDURE/MINOR YING GICAL ORDERABLES documented in this encounter Visit Diagnoses Diagnosis Obstructive sleep apnea- Primary Obstructive sleep apnea (adult) (pediatric) documented in this encounter Orders Equipment Count Last Ordered Date First Orde red Date CPAP/BIPAP MACHINE ORDER 1 10/26/2019 documented in this encounter Care Teams Regional Vice President Life Sales Relationship Specialty Start Date End Date Tristan Collins MD PCP - General 06/26/11 05/12/23 documented as of this encounter
--- OUTSIDE RECORDS SUMMARY | 2024-02-29 08:19 | XMS_ITS | Encounter Summary ---
Author Organization [facility] Address [address] [place] [address] Care Team Providers Care Senior Escrow Officer Name Role Phone Tristan Collins MD Primary Care Provider Unav ailable Reason for Visit * Reason Comments Tech Appointment Encounter Details Date Type Department Care Team (Late st Contact Info) Description 02/29/2020 13:45 EDT Office Visit [facility] - [address] [place], [place] [id number] Sleep, Tech [address] [place], [place] [id number] Snoring (Primary Dx) Social History Tobacco Use Types [...] as of this encounter Progress Notes * Triston Broussard - 02/29/2020 1345 EDT PAP download completed via curb side service for upcoming telehealth visit with sleep provider. Discussed with patient that I changed his HH settings to manual and set the setting to 5 to see if that helped with his dry mouth. I told him if he doesn't notice a difference or if the humidifier isnot heating up then to talk to his DME to see if they can send it out for inspection of malfunctioning heat plate. Pt verbalized understanding. documented in this encounter Plan of Treatment Not on file documented as of this encounter Visit Diagnoses Diagnosis Snoring- Primary Other dyspnea and respiratory abnormality documented in this encounter Care Teams Senior Escrow Officer Relationship Specialty Start Date End Date Tristan Collins MD PCP - General 06/26/11 05/12/23 documented as of this encounter
--- OUTSIDE RECORDS SUMMARY | 2024-02-29 08:19 | XMS_ITS | Encounter Summary ---
Author Organization [facility] Address [address] [place] [address] Care Team Providers Care Statement Distribution Clerk Name Role Phone Tristan Collins MD Primary Care Provider Unav ailable Reason for Visit * Auth/Cert Specialty Diagnoses / Procedures Referred By Contvelma t Referred To Contact Diagnoses Pancreatitis, gallstone PANCREATITIS Referral ID Status Reason Start Date Expiration Date Visits Re quested Visits Authorized [id number] 1 1 Encounter Details Date Type Department Care Team (Late st Contact Info) Description 10/30/2021 13:18 EDT Anesthesia Event [facility] - [facility] [place] [address] [place], [place] [id number] Gurinder Mccain MD [address] [phone] Surinder Darnell AA [address] [phone] Anesthesia Record Procedure Summary Procedure Name Responsible Anesthesiologist Anesthesia Start Time Anesthesia Stop Time ERCP - GI REQUEST Gurinder Mccain MD 10/30/21 13 18 10/30/21 1411 Events Date Time Event Comment 10/30/2021 1318 An Start The patient was re-evaluated immediately before moderate or deep sedation use, before anesthesia induction, or before the anesthesia procedure. 1318 An Start Data 1323 An Induction The patient was reevaluated immediately before moderate or deep sedation use and before anesthesia induction. 1327 An Intubation Atraumatic ETT Intubation; Dentition intact per preop. 1329 Anesthesia Ready 1357 An Extubation Neuromuscular blockade reversed with full TOF and sustained tetanus. Patient spontaneously breathing. Oropharynx suctioned and patient extubated awake. Airway patent post-extubation. To PACU with 4 L supplemental oxygen via nasal cannula. VSS 1359 an stop data 1411 Handoff to RN I completed my handoff to the receiving nurse during which we: 1. Identified the patient 2. Identified the responsible provider 3. Reviewed the pertinent medical history 4. Discussed the surgical course 5. Reviewed intra-op anesthesia management and issues during anesthesia 6. Set expectations for post-procedure period 7. Allowed opportunity for questions and acknowledgement of understanding. 1411 An Stop Meds Name Total ePHEDrine pre-filled syringe 10 mg fentanyl citrate (PF) injection 50 mcg glycopyrrolate pre-filled syringe 0.2 mg ketAMINE 5 mL prefilled syringe 20 mg midazolam (versed) 1 mg/mL 2 mL vial 2 m g ondansetron (PF) (ZOFRAN) injection 4 mg lidocaine 2% (PF) injection glass vial 1 00 mg propOFol (DIPRIVAN) injection 170 mg succinylcholine 20 mg/mL vial 80 mg lactated ringers (LR) infusion Cannot be calculated * Agents Name Exp Sevoflurane (Aux) Insp Sevoflurane (Aux) O2 N2O Air * Blood No blood administrations on file. Lines, Drains, and Airways Type Details Placement Removal Peripheral IV 10/28/21; 192; 10/25 08/17; 22; 1; B Torrez Introcan; Right; Forearm; Inserted by RN; 1; None; 2% Chlorhexidine with IPA; 11/04/21; 0000 10/28/211928 by Jacob Millan, INDU 11/04/21 0000 by Savannah Mclean, INDU Peripheral IV 10/30/21; 0943; 10/25 10/15; 20; 1.25; B Torrez Introcan; Left, Anterior, Proximal; Forearm; Inserted by RN; 1; None; 2% Chlorhexidine with IPA; 10/30/21; 1330 10/30/21 0943 by Gabriella Mccallum RN 10/30/21 1330 by Lauren Pugh AA Non-Surgical Airway 10/30/21; 1335 (crea jaelyn via procedure documentation); 10/30/21; 1357 10/30/21 1335 by Lauren Pugh AA 10/30/21 1357 by Lauren Pugh AA documented in this encounter Social History Tobacco [...] No 10/27/2021 documented as of this encounter OR Notes * Anesthesia Postprocedure Evaluation - Lauren Pugh AA - 10/30/2021 1411 EDT Patient: Yasmani Foote Douglastoo Vital signs were reviewed with the recovery nurse. Complete vitals history is available in the Epicflowsheets. Vitals Value Taken Time BP 116/84 10/30/21 1403 Temp 36.5 ??C (97.7 ??F) 10/30/21 1403 Resp 17 10/30/21 1403 Pulse From Oximetry 625 BPM 10/30/21 1403 SpO2 99 % 10/30/21 1403 Patient report to BUS MATRON; VSS Last Pain Score - Numeric Pain Level (Scale 1-10): 0 Type of Anesthesia - general Anesthesia Post Evaluation Post-procedure vitals reviewed and are stable. Level of consciousness: alert and oriented and awake Temperature status: normothermia Respiratory status: airway patent, nasal cannula and stable Cardiovascular status: appropriate for condition, acceptable and stable Hydration status: adequate Nausea/Vomiting: none Pain management: adequate Post-Op Assessment: patient tolerated procedure well with no complications and patient satisfied with anesthesia care Patient participation: able to participate Disposition: inpatient Anesthesia Complications: No apparent anesthesia complications * Anesthesia Procedure Notes - Lauren Pugh AA - 10/30/2021 1334 EDT Associated Order(s): Airway Airway Date/Time: 10/30/2021 13:27 Urgency: elective Airway not difficult General Information and Staff Patient location during procedure: OR Anesthesiologist: Gurinder Mccain MD Resident/HUMAN FACTORS ERGONOMIST: Lauren Pugh AA Performed: resident/HUMAN FACTORS ERGONOMIST/GEORGETTE Indications and Patient Condition Indications for airway management: anesthesia Sedation level: GA Preoxygenated: yes Patient position: sniffing Ventilation assessment: 0 - not attempted Final Airway Details Final airway type: endotracheal airway Successful airway: ETT Cuffed: yes Successful intubation technique: video laryngoscopy Espinoza Facilitating devices/methods: intubating stylet Endotracheal tube insertion site: oral Blade size: #3 ETT size (mm): 7.5 Cormack-Lehane Classification: grade I - full view of glottis Placement verified by: chest auscultation and capnometry Measured from: lips ETT to lips (cm): 22 Number of attempts at approach: 1 Additional Comments Atraumatic ETT Intubation; Dentition intact per preop. * Anesthesia Preprocedure Evaluation - Lauren Pugh AA - 10/30/2021 1131 EDT Anesthesia Preprocedure Evaluation PAPER CONSENT IN PATIENT CHART HPI: 51yo M w/ PMHx of AUD (acamprosate), alcoholic pancreatitis, cirrhosis MITCHELL vs alcohol use, diabetes (on jardiance), NERIS (patient noncompliant with CPAP), and HTN (chlorthalidone). Patient dx with acute pancreatitis likely secondary to choledocholithiasis. Per IM Note: MRCP imaging is positive for choledocholithiasis making gallstone pancreatitis most likely. Fever likely 2/2 pancreatitis vs cholangitis. No concern for cholecystitis. COVID Test Result: Negative 10/28/21 ?? Hx of L rib fractures and abdominal pain; Hydromorphone/tylenol for pain control ?? Abx: Ceftriaxone and metronidazole ?? Febrile ?? Bradycardic HR 40-50's on telemetry; hypotensive overnight tx with fluid bolus ?? Nausea controlled (zofran) ?? NPO confirmed ?? Patient states that following one of his back surgeries that d/t flushing of pain medication hewent apneic and had to be resuscitated No other anesthesia issues noted EKG 10/29/21: SINUS BRADYCARDIA MODERATE VOLTAGE CRITERIA FOR LVH, CONSIDER NORMAL VARIANT Lab Results Component Value Date NA 140 10/30/2021 K 3.7 10/30/2021 CL 104 10/30/2021 CO2 25 10/30/2021 Lab Results Component Value Date WBC 6.54 10/30/2021 HGB 11.6 (L) 10/30/2021 HCT 36.3 (L) 10/30/2021 MCV 83 10/30/2021 PLT 339 10/30/2021 BUN/Cr/glu/ALT/AST/amyl/lip: 9/0.40/130/40/28/--/-- (10/31 707) Patient Medical History, including Anesthesia History reviewed. Chart and Nursing Notes reviewed, including NPO status and Medication History. Additional ROS/History Findings: No Known Allergies Review of Systems Constitutional: Positive for chills and fever. Cardiovascular: Negative for chest pain and palpitations. Gastrointestinal: Positive for abdominal pain and nausea (controlled). Negative for heartburn (denies GERD) and vomiting. Musculoskeletal: Positive for back pain (multiple lumbar surgeries). Negative for neck pain. Psychiatric/Behavioral: Positive for substance abuse (h/o of AUD; in remission). Past Medical History: Diagnosis Date ??? Anxiety [...] ??? Staph infection 06/2014 s/p back surgery Relevant Problems /Renal (+) Liver cirrhosis secondary to nonalcoholic steatohepatitis (MITCHELL) (HCC-CMS) (HCC) Physical Exam Airway Mallampati: III TM distance: >3 FB Neck ROM: full Cardiovascular - normal exam Rhythm: regular Rate: abnormal Comments: Bradycardic Dental Pulmonary - normal exam Breath sounds clear to auscultation Abdominal - normal exam Anesthesia Plan ASA 3 Anesthesia Type - general, to include intravenous induction. Anesthesia plan and risks discussed. Informed consent obtained from patient. Specific risks discussed were vomiting, nausea and dental injury. The preoperative history and physical which was performed within 30 days of this procedure, has been reviewed and the clinically appropriate elements of the physical examination have been repeated. There are no changes to the documented history and physical or, if so, such changes are documented inthis note PAT Note Notes from 09/30/21 through 10/30/21 No notes of this type exist for this encounter. documented in this encounter Plan of Treatment Not on file documented as of this encounter Procedures Procedure Name Priority Date/Time Associated Diagnosis Comments ANESTHESIA INTUBATION Routine 10/30/2021 13:27 EDT ANESTHESIA INTUBATION Routine 10/30/2021 13:27 EDT documented in this encounter Results * AK AN ELECTIVE ENDOTRACHEAL AIRWAY, AK ANESTHESIA NON-TIMED PLACEHOLDER (10/30/2021 13:27 EDT) Narrative Lauren Pugh AA - 10/30/2021 13:27 EDT Lauren Pugh AA ? 10/30/2021 13:35 Airway Date/Time: 10/30/2021 13:27 Urgency: elective Airway not difficult General Information and Staff Patient location during procedure: OR Anesthesiologist: Gurinder Mccain MD Resident/HUMAN FACTORS ERGONOMIST: Lauren Pugh AA Performed: resident/HUMAN FACTORS ERGONOMIST/GEORGETTE Indications and Patient Condition Indications for airway management: anesthesia Sedation level: GA Preoxygenated: yes Patient position: sniffing Ventilation assessment: 0 - not attempted Final Airway Details Final airway type: endotracheal airway Successful airway: ETT Cuffed: yes Successful intubation technique: video laryngoscopy Espinoza Facilitating devices/methods: intubating stylet Endotracheal tube insertion site: oral Blade size: #3 ETT size (mm): 7.5 Cormack-Lehane Classification: grade I - full view of glottis Placement verified by: chest auscultation and capnometry Measured from: lips ETT to lips (cm): 22 Number of attempts at approach: 1 Additional Comments Atraumatic ETT Intubation; Dentition intact per preop. Gurinder Mccain MD ANESTHESIA ORDERA BLES documented in this encounter Visit Diagnoses Not on filedocumented in this encounter Administered Medications Inactive Administered Medications - up to 3 most recent administrations Medication Order MAR Action Action Date Dose Rate Site ePHEDrine injection 25 mg/5 mL syringe intravenous, PRN, Starting on Thu10/30/21 at 1337, Until Thu10/30/21 at 1411, Routine, Anesthesia Intraprocedure Given 10/30/2021 13:44 EDT 5 mg Given 10/30/2021 13:37 EDT 5 mg fentaNYL citrate (PF) injection intravenous, PRN, Starting on Thu10/30/21 at 1323, Until Thu10/30/21 at 1411, Routine, Anesthesia Intraprocedure Given 10/30/2021 13:23 EDT 50 mcg glycopyrrolate (PF) (ROBINUL) 0.4 mg/2 mL (0.2 mg/mL) injection intravenous, PRN, Starting on Thu10/30/21 at 1321, Until Thu10/30/21 at 1411, Routine, Anesthesia Intraprocedure Given 10/30/2021 13:21 EDT 0.2 mg ketAMINE in NaCl, iso-osmotic (KETALAR) 50 mg/5 mL (10 mg/mL) IV injection intravenous, PRN, Starting on Thu10/30/21 at 1324, Until Thu10/30/21 at 1411, Routine, Anesthesia Intraprocedure Given 10/30/2021 13:24 EDT 20 mg lactated ringers (LR) infusion intravenous, FA IP EQF CONTINUOUS PRN FOR ONE STEP MEDS, Starting on Thu10/30/21 at 1318, Until Thu10/30/21 at 1411, Routine, Anesthesia Intraprocedure New Bag 10/30/2021 13:18 EDT lidocaine (PF) 20 mg/mL (2 %) injection intravenous, PRN, Starting on Thu10/30/21 at 1324, Until Thu10/30/21 at 1411, Routine, Anesthesia Intraprocedure Given 10/30/2021 13:24 EDT 100 mg midazolam (PF) (VERSED) injection intravenous, PRN, Starting on Thu10/30/21 at 1321, Until Thu10/30/21 at 1411, Routine, Anesthesia Intraprocedure Given 10/30/2021 13:21 EDT 2 mg ondansetron (PF) (ZOFRAN) injection intravenous, PRN, Starting on Thu10/30/21 at 1349, Until Thu10/30/21 at 1411, Routine, Anesthesia Intraprocedure Given 10/30/2021 13:49 EDT 4 mg propOFol (DIPRIVAN) injection intravenous, PRN, Starting on Thu10/30/21 at 1324, Until Thu10/30/21 at 1411, Routine, Anesthesia Intraprocedure Given 10/30/2021 13:27 EDT 30 mg Given 10/30/2021 13:24 EDT 140 mg succinylcholine (ANECTINE) injection intravenous, PRN, Starting on Thu10/30/21 at 1325, Until Thu10/30/21 at 1411, Routine, Anesthesia Intraprocedure Given 10/30/2021 13:25 EDT 80 mg documented in this encounter Care Teams Statement Distribution Clerk Relationship Specialty Start Date End Date Tristan Collins MD PCP - General 06/26/11 05/12/23 documented as of this encounter
--- OUTSIDE RECORDS SUMMARY | 2024-02-29 08:19 | XMS_ITS | Encounter Summary ---
Author Organization [facility] Address [address] [place] [address] Care Team Providers Care Horseradish Maker Name Role Phone Tristan Collins MD Primary Care Provider Unav ailable Encounter Details Date Type Department Care Team (Latest Contact Info) Description 10/27/2021 Travel Social History Tobacco Use Types Packs/Day [...] on filedocumented in this encounter Care Teams Horseradish Maker Relationship Specialty Start Date End Date Tristan Collins MD PCP - General 06/26/11 05/12/23 documented as of this encounter
--- OUTSIDE RECORDS SUMMARY | 2024-02-29 08:19 | XMS_ITS | Encounter Summary ---
Author Organization [facility] Address [address] [place] [address] Care Team Providers Care Professor Of Latin American Studies Name Role Phone Tristan Collins MD Primary Care Provider Unav ailable Reason for Visit * Reason Comments Follow-up Encounter Details Date Type Department Care Team (Late st Contact Info) Description 11/30/2020 10:00 EDT Telemedicine [facility] - [address] [place], [place] [id number] Марина Tsai REFRACTORY FURNACE DESIGNER 1 [facility] [address] [place] [address] Obstructive sleep apnea (Primary Dx) [...] - Inhaled Oxygen Concentration - - Weight 99.8 kg (220 lb) 11/30/2020 0948 EDT per pt Height - - Body Mass Index 36.61 10/07/2019 2039 EDT documented in this encounter Functional Status [...] this encounter Progress Notes * Марина Tello APRN - 11/30/2020 1000 EDT [facility] Date of Service: 11/30/2020 Name: Yasmani Glaser : 1970 TELEMEDICINE VIDEO VISIT Today's visit was provided through telemedicine video conferencing: The location of the patient: Home The location of the provider: Home Office The following staff and their role participated in today's encounter: Марина Tello APRN The concept of ???Telemedicine?? has been described [...] Sleep Apnea HPI: Yasmani Glaser is a 50 y.o. male w/hx/o hypertension, anxiety, gastroesophageal reflux disease, and cirrhosis secondary to MITCHELL, who presents to the [facility] on 12/01/2020 for evaluation of NERIS on CPAP therapy. Pt is unaccompanied today. Pt initially presented to another sleep clinic with symptoms of snoring and frequent nocturnal awakenings, and he underwent a split night PSG at [facility] in [place], [place], which was reportedly consistent with obstructive [...] testing was recommended, and he underwent split n ight PSG 10/07/19, which revealed an AHI of 23, and he was prescribed CPAP 5-15cm H2O. Pt has not been seen again since that study, but presents today for follow-up. Patient reports that he never received a CPAP machine after his sleep study last year, so he has not been using CPAP for at least a year at this point. He has continued to get supplies from his medical equipment company, but he does not have a machine that functions properly. He was told that in order to get a new machine, he needed to come back for a follow-up visit, so he is hoping to get a machine ordered today. When he is able to use CPAP, he notices symptomatic benefit including improved quality of sleep andthat he feels more refreshed upon awakening. He also notes that he does not snore with CPAP use, and he no longer wakes up gasping. Without CPAP, he snores, gasps, and screams out in pain. With CPAP, he uses a full facemask, which he finds comfortable, and does not note bothersome leaking. The pressure does not feel excessive or insufficient. He uses the humidifier, but it was not working properly on his old machine, so he was waking up with significant oral dryness. He denies issues with nasal congestion. He goes to bed between 9:30-10 PM and it can take him a while to fall asleep. He occasionally awakens during the night to use the restroom, but is able to get back to sleep. He arises for the day between 4-5 AM and does not feel refreshed upon awakening, stating that without CPAP, he feels like he did not sleep at all even if he sleeps for hours. With CPAP, he feels more refreshed. Daytime sleepin ess is not problematic, but if he is ever at home by himself he will doze for 20-30 minutes. He denies difficulty maintaining wakefulness when driving. He was prescribed trazodone a couple days ago, and he has found it helpful so far. He also takes melatonin at bedtime. He does not take stimulant medications. He drinks 3-4 cups of coffee per day, inthe morning only. He does not drink alcohol (he is 6 months sober), or use tobacco, marijuana, or other substances. His weight was 198 pounds when he was last seen in August 2019, and his current weight is 220 pounds. He is not getting regular exercise. Patient Active Problem List Diagnosis ??? Back pain ??? Liver cirrhosis secondary to nonalcoholic steatohepatitis (MITCHELL) ([facility]) Past Medical History: Diagnosis Date ??? Anxiety ??? Back pain 08/11/2014 S/p repeated lumbar surgeries with posterior spinal fusion and multiple revisions complicated by wound infection due to Staph epidermidis. ??? Depression ??? Diarrhea ??? GERD (gastroesophageal reflux disease) ??? HTN (hypertension) ??? Liver cirrhosis secondary to nonalcoholic steatohepatitis (MITCHELL) ([facility]) 09/04/2015 ??? Lung disease ??? Nonspecific finding on examination of urine ??? Sleeping difficulty ??? Staph infection 06/2014 s/p back surgery Current Outpatient Medications Medication ??? acamprosate calcium (ACAMPROSATE ORAL) ??? acetylcysteine (NAC) 600 mg capsule ??? carvedilol (COREG) 12.5 mg tablet ??? chlorthalidone (HYGROTON) 25 mg tablet ??? fluticasone-salmeterol (ADVAIR) 250-50 mcg/dose diskus inhaler ??? magnesium oxide (MAG-OX) 400 mg (241.3 mg magnesium) tablet ??? naltrexone (REVIA) 50 mg tablet ??? pantoprazole (PROTONIX) 40 mg tablet ??? polyethylene glycol (GOLYTELY;NULYTELY) 236-22.74-6.74 -5.86 gram suspension ??? potassium (POTASSIMIN ORAL) ??? sertraline (ZOLOFT) 50 mg tablet ??? traZODone (DESYREL) 50 mg tablet No current facility-administered medications for this visit. Surgical History: Past Surgical History: Procedure Laterality Date ??? BONE INCISION AND DRAINAGE x3 ??? COLONOSCOPY 2014 ??? HIP SURGERY ??? LIVER BIOPSY 07/2015 ??? LUMBAR FUSION ??? OTHER SURGICAL HISTORY SI joint infusion x3 Objective: Wt 99.8 kg (220 lb) Comment: per pt BMI 36.61 kg/m?? Wt Readings from Last 5 Encounters: 11/30/20 99.8 kg (220 lb) 10/07/19 89.8 kg (198 lb) 08/31/19 89.8 kg (198 lb) 09/20/15 100.7 kg (222 lb) 09/04/15 (!) 103.9 kg (229 lb) Physical Exam: General: Well developed, well nourished male who is in no apparent distress Head: Atraumatic, normocephalic Mouth: The lips are without lesion. Neurologic: Speech fluent. Psych: Alert, oriented and cooperative, normal attention span and concentration. Relevant Data: COMPLIANCE REPORT: No current usage. PSG DATA: Split Night Polysomnogram on 10/07/2019 (pt weight 198lb): INDICATION FOR STUDY: The patient [...] be notified by the staff at the [facility] of the results of the test. *Auto titrating CPAP with a pressure range of 5-15 cm of water will be prescribed. *Follow-up will be arranged at the at the [facility]. Assessment: 50 y.o. male who presented to the [facility] on 12/01/2020 for evaluation of NERIS on CPAP therapy. Patient was diagnosed with NERIS many years ago and used CPAP until a little over a year ago when hismachine stopped functioning. He presented to this clinic to establish care, and underwent split-night PSG 10/07/2019, which revealed an AHI of 23. He was subsequently prescribed CPAP therapy 5-15 cm H2O, but he states that he never received the new CPAP machine. As such, his NERIS has been untreated, and he continues to struggle with snoring, gasping respirations, and unrefreshing sleep. At this time, he is motivated to resume use of CPAP, so an order for a new machine will be placed today. Once he receives the new machine, he will resume use of CPAP with all sleep. A download will be reviewed several weeks after he starts using CPAP again, to ensure adequate control of NERIS, and any necessary pressure adjustments can be made at that time. In the meantime, recommend maintaining consistent sleep and wake times and allowing at least 7-8 hours for total sleep per night. He will continue to follow-up with his other providers for medication management. Encouraged regular exercise as tolerated, and discussed the importance of weight loss. Recommendations: ?? Resume use of CPAP with all sleep; order for new machine placed today ?? Patient counselin. Discussed pathophysiology of NERIS. 2. Discussed adverse health consequences of untreated NERIS. 3. The findings of the polysomnogram and significance thereof were discussed in detail with the patient today. 4. Discussed CPAP therapy as first-line treatment for NERIS. 5. Avoidance of drowsy driving and countermeasures discussed. 6. Discussed importance of weight loss. 7. Good sleep hygiene and the importance of consistent sleep and wake times, as well as avoiding orlimiting the use of caffeine/EtOH were discussed. 8. Reminded to replace disposable supplies at regular intervals. Pt is to notify me if there are any impediments to CPAP use, or if drowsiness becomes more problematic, otherwise I???ll plan a follow-up visit in 30-90 days for compliance. I spent a total of 25 minutes on the date of this encounter meeting with the patient and reviewing documentation/coordinating care as described in the above note. No procedures were performed at the time of the visit. Марина Tello APRN 12/01/2020 documented in this encounter Plan of Treatment Not on file documented as of this encounter Procedures Procedure Name Priority Date/Time Associated Diagnosis Comments ORDERS - SCANNED 07/02/2021 13:57 EST documented in this encounter Results * ORDERS - SCANNED (07/02/2021 13:57 EST) 07/02/2021 13:5 7 EST Scan 2 Director Trial ADMISSION ORDERABLE S documented in this encounter Visit Diagnoses Diagnosis Obstructive sleep apnea- Primary Obstructive sleep apnea (adult) (pediatric) documented in this encounter Discontinued Medications Medication Sig Discontinue Reason Start Date End Da te DIAZepam (VALIUM) 5 mg tablet Take 5 mg by mouth every 6 hours as needed for Anxiety. Patient Stopped Taking 11/30/2020 citalopram (CELEXA) 20 mg tablet Take 20 mg by mouth daily. Alternate therapy 11/30/2020 gabapentin (NEURONTIN) 300 mg capsule Take 1 Cap by mouth 3 times daily. Take one tablet at night for 3-5 days, then titrate slowly up to TID dosing as tolerated and/or to effect. Patient Stopped Taking 09/16/2011 11/30/2020 HYDROcodone-acetamino phen (ZYDONE) 10-400 mg per tablet Take 1-2 Tabs by mouth every 6 hours as needed for Pain Patient Stopped Taking 11/30/2020 NAPROXEN ORAL Take 500 mg by mouth as needed. Patient Stopped Taking 11/30/2020 documented as of this encounter Historical Medications * This list may reflect changes made after this encounter. Medication Sig Dispensed Refills Start Date End Date acetylcysteine (NAC) 600 mg capsule Take 1,200 mg by mouth 2 times daily. magnesium oxide (MAG-OX) 400 mg (241.3 mg magnesium) tablet Take 400 mg by mouth daily. traZODone (DESYREL) 50 mg tablet Take 100 mg by mouth daily. Take one to two before bed. 11/29/2021 sertraline (ZOLOFT) 50 mg tablet Take 100 mg by mouth daily. 11/29/2021 naltrexone (REVIA) 50 mg tablet Take 50 mg by mouth daily. 10/31/2021 acamprosate calcium (ACAMPROSATE ORAL) Take 333 mg by mouth 2 times daily. 11/06/2021 potassium (POTASSIMIN ORAL) Take by mouth. 10/31/2021 added in this encounter Orders Equipment Count Last Ordered Date First Orde red Date CPAP/BIPAP MACHINE ORDER 1 12/01/2020 documented in this encounter Care Teams Professor Of Latin American Studies Relationship Specialty Start Date End Date Tristan Collins MD PCP - General 06/26/11 05/12/23 documented as of this encounter
--- OUTSIDE RECORDS SUMMARY | 2024-02-29 08:19 | XMS_ITS | Encounter Summary ---
Author Organization [facility] Address [address] [place] [address] Care Team Providers Care Presser Hand Name Role Phone Tristan Collins MD Primary Care Provider Unav ailable Reason for Visit * Reason Onset Date Comments Appointment Related 10/07/2019 Encounter Details Date Type Department Care Team (Late st Contact Info) Description 10/07/2019 Telephone [facility] Sleep Program - [address] [id number] Yelena Argueta MD [address] [place] [address] Appointment Related Social History Tobacco [...] * Telephone Encounter - Jacob Lama - 10/07/2019 0938 EDT Spoke w/Pt and CONFIRMED [facility] 10/07/19 8pm - Pt to bring old mask to fit for new one* documented in this encounter Plan of Treatment Not on file documented as of this encounter Visit Diagnoses Not on filedocumented in this encounter Care Teams Presser Hand Relationship Specialty Start Date End Date Tristan Collins MD PCP - General 06/26/11 05/12/23 documented as of this encounter
--- OUTSIDE RECORDS SUMMARY | 2024-02-29 08:19 | XMS_ITS | Encounter Summary ---
Author Organization [facility] Address [address] [place] [address] Care Team Providers Care Geriatric Nurse Practitioner Name Role Phone Tristan Collins MD Primary Care Provider Unav ailable Encounter Details Date Type Department Care Team (Late st Contact Info) Description 04/28/2016 Historical Results Only [facility] Radiology Results [address] [place], [place] [address] Tristan Collins MD Social History Tobacco Use Types Packs/Day [...] Date/Time Associated Diagnosis Comments US ABDOMEN LIMITED 04/28/2016 10 :15 EDT documented in this encounter Results * US ABDOMEN LIMITED (04/28/2016 10:15 EDT) Anatomical Region Laterality Modality Abdomen, Body Other 04/28/2016 10:1 5 EDT Narrative 04/28/2016 10:19 EDT ? EXAM: ULTRASOUND/RIGHT UPPER QUADRANT ? EX. D/ (0856) ? CLINICAL INFORMATION: ? K75.81 NONALCOHOLIC STEATOHEPATITIS ? INDICATION: K75.81 NONALCOHOLIC STEATOHEPATITIS NONALCOHOLIC ? STEATOHEPATITIS ? TECHNIQUE: ??Sonographic examination of the right upper quadrant was ? performed. Color and spectral waveform Doppler imaging was utilized. ? COMPARISON: None ? FINDINGS: The IVC appears patent. The visualized portions of the ? pancreatic head are unremarkable. The right hepatic lobe measures ? 20.0 cm in the craniocaudal dimension. The liver is diffusely ? echogenic. No focal hepatic lesion is seen. The gallbladder wall is ? 2.0 mm in thickness. No gallstones are seen. No pericholecystic fluid ? is noted. The common bile duct measures 4.8 mm in diameter. The right ? kidney is 11.9cm in length. No hydronephrosis is seen. No focal renal ? parenchymal abnormality is detected. ? IMPRESSION: ?1. Hepatomegaly and hepatic steatosis. ? REPORT SIGNED IN OTHER VENDOR SYSTEM 04/28/2016 ?Reported By: Delta Crockett MD ? CC: ? Transcribed Date/Time: 04/28/2016 (1019) ? [employer] Architect: ? Printed Date/Time: 01/07/2019 (0851) ? PAGE 1 ? Signed Report ? Procedure Note Delta Crockett E - 06/01/2019 EXAM: ULTRASOUND/RIGHT UPPER QUADRANT EX. D/ (0856) CLINICAL INFORMATION: K75.81 NONALCOHOLIC STEATOHEPATITIS INDICATION: K75.81 NONALCOHOLIC STEATOHEPATITIS NONALCOHOLIC STEATOHEPATITIS TECHNIQUE: Sonographic examination of the right upper quadrant was performed. Color and spectral waveform Doppler imaging wasutilized. COMPARISON: None FINDINGS: The IVC appears patent. The visualized portions of the pancreatic head are unremarkable. The right hepatic lobe measures 20.0 cm in the craniocaudal dimension. The liver is diffusely echogenic. No focal hepatic lesion is seen. The gallbladder wall is 2.0 mm in thickness. No gallstones are seen. No pericholecysticfluid is noted. The common bile duct measures 4.8 mm in diameter. Theright kidney is 11.9cm in length. No hydronephrosis is seen. No focalrenal parenchymal abnormality is detected. IMPRESSION: 1. Hepatomegaly and hepatic steatosis. REPORT SIGNED IN OTHER VENDOR SYSTEM 04/28/2016 Reported By: Delta Crockett MD CC: Transcribed Date/Time: 04/28/2016 (1019) [employer] Architect: Printed Date/Time: 01/07/2019 (0851) PAGE 1 Signed Report Tristan Collins MD IMG ORDERABLES documented in this encounter Visit Diagnoses Not on filedocumented in this encounter Care Teams Geriatric Nurse Practitioner Relationship Specialty Start Date End Date Tristan Collins MD PCP - General 06/26/11 05/12/23 documented as of this encounter
--- OUTSIDE RECORDS SUMMARY | 2024-02-29 08:19 | XMS_ITS | Encounter Summary ---
Author Organization [facility] Address [address] [place] [address] Care Team Providers Care Financial Wellness Coach Name Role Phone Tristan Collins MD Primary Care Provider Unav ailable Encounter Details Date Type Department Care Team (Late st Contact Info) Description 11/02/2020 Telephone [facility] Sleep Program - [address] [id number] Марина Tsai NP 1 [facility] [address] [place] [id number] Social History Tobacco Use Types Packs/Day Years [...] encounter Miscellaneous Notes * Telephone Encounter - Killian, Mervat - 11/07/2020 1015 EDT Called Pt for email address to send Zoom for upcoming appt X2. L/M req a c/b to provide email address. * Telephone Encounter - Mervat Daily - 11/02/2020 1359 EDT Called PT for email address to send Zoom invite. L/m req a c/b to provide email address to send link for appt. documented in this encounter Plan of Treatment Not on file documented as of this encounter Visit Diagnoses Not on filedocumented in this encounter Care Teams Financial Wellness Coach Relationship Specialty Start Date End Date Tristan Collins MD PCP - General 06/26/11 05/12/23 documented as of this encounter
--- OUTSIDE RECORDS SUMMARY | 2024-02-29 08:19 | XMS_ITS | Encounter Summary ---
Author Organization [facility] Address [address] [place] [address] Care Team Providers Care Workday Manager Name Role Phone Tristan Collins MD Primary Care Provider Unav ailable Reason for Visit * Auth/Cert Specialty Diagnoses / Procedures Referred By Contvelma t Referred To Contact Diagnoses Pancreatitis, gallstone PANCREATITIS Referral ID Status Reason Start Date Expiration Date Visits Re quested Visits Authorized [id number] 1 1 Encounter Details Date Type Department Care Team (Late st Contact Info) Description 11/03/2021 19:56 EDT Anesthesia Event [facility] [place] [address] [place], [place] [id number] Mervat Valencia MD [address] [facility], Level [address] [place] [address] Dee Dee Asher, [facility] [address] [place] [address] Anesthesia Record Procedure Summary Procedure Name Responsible Anesthesiologist Anesthesia Start Time Anesthesia Stop Time CHOLECYSTECTOMY, LAPAROSCOPIC (Abdomen) Mervat Valencia MD 11/03/21195511/03/212135 Events Date Time Event Comment 11/03/20211955 An Start The patient was re-evaluated immediately before moderate or deep sedation use, before anesthesia induction, or before the anesthesia procedure. 1955 An Start Data 2000 An Induction The patient was reevaluated immediately before moderate or deep sedation use and before anesthesia induction. 2006 An Intubation 2019 Anesthesia Ready 2115 An Extubation 2117 an stop data 2135 Handoff to RN I completed my handoff to the receiving nurse during which we: 1. Identified the patient 2. Identified the responsible provider 3. Reviewed the pertinent medical history 4. Discussed the surgical course 5. Reviewed intra-op anesthesia management and issues during anesthesia 6. Set expectations for post-procedure period 7. Allowed opportunity for questions and acknowledgement of understanding. 2135 An Stop Meds Name Total dexaMETHasone (DECADRON) inj ection 4 mg/mL (for IV doses up to 10mg) 4 mg ePHEDrine pre-filled syringe 5 mg fentanyl citrate (PF) injection 100 mcg glycopyrrolate pre-filled syringe 0.4 mg HYDROmorphone vial 2 mg/mL 1 mg ketAMINE 5 mL prefilled syringe 20 mg midazolam (versed) 1 mg/mL 2 mL vial 2 m g ondansetron (PF) (ZOFRAN) injection 4 mg lidocaine 2% (PF) injection glass vial 8 0 mg propOFol (DIPRIVAN) injection 160 mg rocuronium 10 mg/mL vial 70 mg sugammadex 100 mg/mL 2 mL vial 200 mg lactated ringers (LR) infusion Cannot be calculated dexmedetomidine injection - vial 20 mcg ceFAZolin injection 2,000 mg phenylephrine pre-made bag 20 mg/250 mL 880 mcg acetaminophen 10 mg/ml 100 mL infusion 1 ,000 mg * Agents Name Insp Sevoflurane Exp Sevoflurane O2 N2O Air * Blood No blood administrations on file. Lines, Drains, and Airways Type Details Placement Removal Wound 11/03/21; 2019; Incision; Abdomen; Lap-Nathalie trocar sites x 4; N; Full thickness 11/03/212019 by Tad Ritchie, INDU Peripheral IV 10/28/21; 1928; 11/04/21; 22; 1; B Torrez Introcan; Right; Forearm; Inserted by RN; 1; None; 2% Chlorhexidine with IPA; 11/04/21; 0000 10/28/211928 by Jacob Millan RN 11/04/21 0000 by Savannah Mclean RN Peripheral IV 11/03/21; 1900; 11/09/21; Posterior, Right; Forearm; 11/04/21; 1500 11/03/21 1900 by Caroline Alexandra RN 11/04/21 1500 by Jaylene Sanchez, INDU Peripheral IV 11/03/21; 2006 (crea jaelyn via procedure documentation); 18; Left; Forearm; forearm; In OR by , Patient arrived with LDA; 11/04/21; 0000 11/03/212006 by Dee Dee Asher, CARBON PRINTER 11/04/21 0000 by Savannah Mclean RN NG/OG Tube 11/03/21; 2009; In O R by ; Orogastric; 18 fr; 11/04/21; 0000 (pt arrived to B4 without any NG/OG tube) 11/03/212009 by Dee Dee Ashre, CARBON PRINTER 11/04/21 0000 by Caroline Alexandra, INDU Non-Surgical Airway 11/03/21; 2018 (crea jaelyn via procedure documentation); 11/03/21; 211511/03/212018 by Dee Dee Asher, CARBON PRINTER 11/03/212115 by Dee Dee Asher, CARBON PRINTER Peripheral IV 11/03/21 (Pt arrived from PACU with PIV); 2100; 11/08/21; Left, Posterior; Forearm; 11/04/21; 1500 11/03/21 2100 by Caroline Alexandra RN 11/04/21 1500 by Jaylene Sanchez RN documented in this encounter Social History Tobacco [...] OR Notes * Anesthesia Postprocedure Evaluation - Crystal Garcia MD - 11/03/20212135 EDT Patient: Yasmani Glaser Vital signs were reviewed with the recovery nurse. [facility] Vitals Value Taken Time BP 79/52 11/03/212132 Temp 36.2 11/03/212135 Resp 13 11/03/212135 Pulse From Oximetry 54 BPM 11/03/212135 SpO2 97 % 11/03/212135 Vitals shown include unvalidated device data. Last Pain Score - Numeric Pain Level (Scale 1-10): 6 Type of Anesthesia - general Anesthesia Post Evaluation Level of consciousness: awake Temperature status: normothermia Respiratory status: airway patent Cardiovascular status: acceptable Hydration status: adequate Nausea/Vomiting: none Pain management: adequate Post-Op Assessment: patient tolerated procedure well with no complications Patient participation: able to participate Disposition: inpatient Anesthesia Complications: No apparent anesthesia complications * Anesthesia Procedure Notes - Dee Dee Asher CRNA - 11/03/2021 2019 EDT Associated Order(s): Airway Airway Date/Time: 11/03/2021 20:07 Urgency: elective General Information and Staff Patient location during procedure: OR Resident/CARBON PRINTER: Dee Dee Asher CRNA Performed: resident/CARBON PRINTER/AA Indications and Patient Condition Indications for airway management: anesthesia Sedation level: GA Preoxygenated: yes Patient position: sniffing Ventilation assessment: 1 - Easy Final Airway Details Final airway type: endotracheal airway Successful airway: ETT Cuffed: yes Successful intubation technique: video laryngoscopy Espinoza Facilitating devices/methods: intubating stylet Endotracheal tube insertion site: oral Blade: Chance Blade size: #3 ETT size (mm): 7.0 Cormack-Lehane Classification: grade I - full view of glottis Placement verified by: chest auscultation and capnometry Measured from: teeth ETT to teeth (cm): 23 Number of attempts at approach: 1 * Anesthesia Procedure Notes - Dee Dee Asher CRNA - 11/03/20212010 EDT Associated Order(s): Peripheral IV Placement Peripheral IV Placement Date/Time: 11/03/2021 20:07 Inserted by: Mervat Valencia MD Placement Needle size: 18 G Laterality: left Location: forearm Local anesthetic: none Site prep: alcohol Technique: anatomical landmarks Attempts: 1 * Anesthesia Preprocedure Evaluation - Tad Gonzalez MD - 11/01/2021 0634 EDT Images from the original note were not included. 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 Now awaiting cholecystectomy. -Patient reports no problems with anesthesia in the past. -Does note in PACU following one procedure became apneic due to over dose of narcotics. Does not recall what intervention he had, but woke up with tons of people in his small room. -Was taking opioids for rib fractures recently, but has not taken them for the past couple of weeks. ERCP 10/30/21: Airway Difficult Airway: No Final Airway Type: endotracheal airway Mask Difficulty Assessment: 0 - not attempted Final Endotracheal Airway: ETT Cuffed: Yes Cormack-Lehane Classification: grade I - full view of glottis Technique Used For Successful Placement: video laryngoscopy Espinoza Devices/Methods Used in Placement: intubating stylet Insertion Site: oral Blade Size: 3 ETT Size (mm): 7.5 Number of Attempts at Approach: 1 Additional Comments: Atraumatic ETT Intubation; Dentition intact per preop. Lab Results Component Value Date WBC 6.93 10/31/2021 HGB 12.5 (L) 10/31/2021 HCT 39.8 10/31/2021 MCV 84 10/31/2021 PLT 363 10/31/2021 Lab Results Component Value Date CREATININE 0.58 (L) 10/31/2021 Lab Results Component Value Date BUN 9 (L) 10/31/2021 Lab Results Component Value Date NA 141 10/31/2021 K 4.0 10/31/2021 CL 105 10/31/2021 CO2 30 10/31/2021 Lab Results Component Value Date INR 1.3 (H) 10/29/2021 INR 1.3 (H) 08/20/2015 PROTIME 14.9 (H) 10/29/2021 PROTIME 14.6 (H) 08/20/2015 No results found for: PTT Covid negative 10/28/21 Lines: Right Forearm 22g Patient Medical History, including Anesthesia History reviewed. Chart and Nursing Notes reviewed, including NPO status and Medication History. Additional ROS/History Findings: No Known Allergies Review of Systems Constitutional: Negative for chills and fever. Respiratory: Negative for cough and shortness of breath. Cardiovascular: Negative for chest pain. Gastrointestinal: Positive for abdominal pain. Negative for nausea. Musculoskeletal: Negative for back pain and neck pain. Neurological: Negative for weakness. Endo/Heme/Allergies: Does not bruise/bleed easily. Past Medical History: Diagnosis Date ??? Anxiety [...] (MITCHELL) (HCC-CMS) (HCC) Physical Exam Airway Mallampati: I TM distance: >3 FB Neck ROM: full Cardiovascular Rhythm: regular Rate: normal Dental - normal exam Pulmonary Breath sounds clear to auscultation Abdominal Anesthesia Plan ASA 2 Anesthesia Type - general Anesthesia plan and risks discussed. Informed consent obtained from patient. Specific risks discussed were headache, nausea, vomiting and dental injury. PAT Note Notes from 10/02/21 through 11/01/21 No notes of this type exist for this encounter. documented in this encounter Miscellaneous Notes * Addendum Note - Tad Gonzalez MD - 01/30/2022 0856 EDT Addendum created 01/30/22 0856 by Tad Gonzalez MD Delete clinical note documented in this encounter Plan of Treatment Not on file documented as of this encounter Procedures Procedure Name Priority Date/Time Associated Diagnosis Comments ANESTHESIA INTUBATION Routine 11/03/2021 20:07 EDT ANESTHESIA PERIPHERAL IV PLACEMENT Routine 11/03/2021 20:07 EDT documented in this encounter Results * ME AN ELECTIVE ENDOTRACHEAL AIRWAY (11/03/2021 20:07 EDT) Narrative Dee Dee Asher CRNA - 11/03/2021 20:07 EDT Dee Dee Asher CRNA ? 11/03/2021 20:19 Airway Date/Time: 11/03/2021 20:07 Urgency: elective General Information and Staff Patient location during procedure: OR Resident/CARBON PRINTER: Dee Dee Asher CRNA Performed: resident/CARBON PRINTER/AA Indications and Patient Condition Indications for airway management: anesthesia Sedation level: GA Preoxygenated: yes Patient position: sniffing Ventilation assessment: 1 - Easy Final Airway Details Final airway type: endotracheal airway Successful airway: ETT Cuffed: yes Successful intubation technique: video laryngoscopy Espinoza Facilitating devices/methods: intubating stylet Endotracheal tube insertion site: oral Blade: Chance Blade size: #3 ETT size (mm): 7.0 Cormack-Lehane Classification: grade I - full view of glottis Placement verified by: chest auscultation and capnometry Measured from: teeth ETT to teeth (cm): 23 Number of attempts at approach: 1 Mervat Valencia MD ANESTHESIA ORDERABLE S * ANESTHESIA PERIPHERAL IV PLACEMENT (11/03/2021 20:07 EDT) Narrative Dee Dee sAher CRNA - 11/03/2021 20:07 EDT Dee Dee Asher CRNA ? 11/03/2021 20:12 Peripheral IV Placement Date/Time: 11/03/2021 20:07 Inserted by: Mervat Valencia MD Placement Needle size: 18 G Laterality: left Location: forearm Local anesthetic: none Site prep: alcohol Technique: anatomical landmarks Attempts: 1 Mervat Valencia MD ANESTHESIA ORDERABLE S documented in this encounter Visit Diagnoses Not on filedocumented in this encounter Administered Medications Inactive Administered Medications - up to 3 most recent administrations Medication Order MAR Action Action Date Dose Rate Site acetaminophen (OFIRMEV) IV solution intravenous, PRN, Starting on 11/03/21 at 2057, Until 11/03/21 at 2135, Routine, Anesthesia Intraprocedure Given 11/03/2021 20:58 EDT 1,000 mg ceFAZolin (ANCEF) injection intravenous, PRN, Starting on 11/03/21 at 2018, Until 11/03/21 at 2135, Routine, Anesthesia Intraprocedure Given 11/03/2021 20:18 EDT 2,000 mg dexAMETHasone (DECADRON) injection intravenous, PRN, Starting on 11/03/21 at 2007, Until 11/03/21 at 2136, Routine, Anesthesia Intraprocedure Given 11/03/2021 20:07 EDT 4 mg dexmedeTOMIDine (PRECEDEX) injection intravenous, PRN, Starting on [place] 11/03/21 at 2002, Until 11/03/21 at 2136, Routine, Anesthesia Intraprocedure Given 11/03/2021 21:01 EDT 10 mcg Given 11/03/2021 20:03 EDT 10 mcg ePHEDrine injection 25 mg/5 mL syringe intravenous, PRN, Starting on 11/03/21 at 2041, Until [place] 11/03/21 at 2136, Routine, Anesthesia Intraprocedure Given 11/03/2021 20:42 EDT 5 mg fentaNYL citrate (PF) injection intravenous, PRN, Starting on [place] 11/03/21 at 2001, Until [place] 11/03/21 at 2135, Routine, Anesthesia Intraprocedure Given 11/03/2021 20:02 EDT 100 mcg glycopyrrolate (PF) (ROBINUL) 0.4 mg/2 mL (0.2 mg/mL) injection intravenous, PRN, Starting on [place] 11/03/21 at 2018, Until 11/03/21 at 2135, Routine, Anesthesia Intraprocedure Given 11/03/2021 20:20 EDT 0.2 mg Given 11/03/2021 20:18 EDT 0.2 mg HYDROmorphone (DILAUDUD) 2 mg/mL injection intravenous, PRN, Starting on [place] 11/03/21 at 2100, Until [place] 11/03/21 at 2135, Routine, Anesthesia Intraprocedure Given 11/03/2021 21:08 EDT 0.6 mg Given 11/03/2021 21:00 EDT 0.4 mg ketAMINE in NaCl, iso-osmotic (KETALAR) 50 mg/5 mL (10 mg/mL) IV injection intravenous, PRN, Starting on [place] 11/03/21 at 2023, Until [place] 11/03/21 at 213, Routine, Anesthesia Intraprocedure Given 11/03/2021 20:24 EDT 20 mg lactated ringers (LR) infusion intravenous, FA IP EQF CONTINUOUS PRN FOR ONE STEP MEDS, Starting on [place] 11/03/21 at 1956, Until [place] 11/03/21 at 2136, Routine, Anesthesia Intraprocedure New Bag 11/03/2021 19:56 EDT lidocaine (PF) 20 mg/mL (2 %) injection intravenous, PRN, Starting on [place] 11/03/21 at 2000, Until [place] 11/03/21 at 2136, Routine, Anesthesia Intraprocedure Given 11/03/2021 20:01 EDT 80 mg midazolam (PF) (VERSED) injection intravenous, PRN, Starting on [place] 11/03/21 at 1957, Until [place] 11/03/21 at 6, Routine, Anesthesia Intraprocedure Given 11/03/2021 19:57 EDT 2 mg ondansetron (PF) (ZOFRAN) injection intravenous, PRN, Starting on [place] 11/03/21 at 2100, Until [place] 11/03/21 at 2135, Routine, Anesthesia Intraprocedure Given 11/03/2021 21:00 EDT 4 mg phenylephrine HCl in 0.9% NaCl (NEO_SYNEPHRINE) 20 mg/250 mL (80 mcg/mL) infusion solution intravenous, FA IP EQF CONTINUOUS PRN FOR ONE STEP MEDS, Starting on [place] 11/03/21 at 2006, Until [place] 11/03/21 at 2135, Routine, Anesthesia Intraprocedure Restarted 11/03/2021 20:39 EDT 20 mcg/min 15 mL/hr New Bag 11/03/2021 20:07 EDT 20 mcg/min 15 mL/hr propOFol (DIPRIVAN) injection intravenous, PRN, Starting on [place] 11/03/21 at 2004, Until [place] 11/03/21 at 2135, Routine, Anesthesia Intraprocedure Given 11/03/2021 20:04 EDT 160 mg rocuronium (ZEMURON) injection intravenous, PRN, Starting on [place] 11/03/21 at 2005, Until [place] 11/03/21 at 2135, Routine, Anesthesia Intraprocedure Given 11/03/2021 20:05 EDT 70 mg sugammadex (BRIDION) injection intravenous, PRN, Starting on [place] 11/03/21 at 2110, Until [place] 11/03/21 at 2136, Routine, Anesthesia Intraprocedure Given 11/03/2021 21:10 EDT 200 mg documented in this encounter Orders Medications Ordered That Surendra ht Not Have Been Administered Count Last Ordered Date First Ordered Date dexmedeTOMIDine (PRECEDEX) injection 1 10/25 documented in this encounter Care Teams Workday Manager Relationship Specialty Start Date End Date Tristan Collins MD PCP - General 06/26/11 05/12/23 documented as of this encounter
--- OUTSIDE RECORDS SUMMARY | 2024-02-29 08:19 | XMS_ITS | Encounter Summary ---
Author Organization [facility] Address [address] [place] [address] Care Team Providers Care Blood Bank Laboratory Technician Name Role Phone Tristan Collins MD Primary Care Provider Unav ailable Reason for Visit * Reason Onset Date Comments Appointment Related 09/15/2019 Encounter Details Date Type Department Care Team (Late st Contact Info) Description 09/15/2019 Telephone [facility] Sleep Program - [address] [id number] Yelena Argueta MD [address] [place] [address] Appointment Related Social History Tobacco [...] * Telephone Encounter - Meme Benitez - 09/22/2019 1255 EST Called pt with change to 6.8.20 appt - Марина SALAZAR w/ details to call back if there are any issues 6.9.20 @ 1430 * Telephone Encounter - Meme Benitez - 09/22/2019 1159 EST Pt called to cancel sleep study tonight rescheduled for 3.13.20 @ 1999 * Telephone Encounter - Meme Benitez - 09/15/2019 1009 EST Called pt x3 to schedule SPLIT PSG 2:1 [id number] RES INN 2.27.20 @ 1999 documented in this encounter Plan of Treatment Not on file documented as of this encounter Visit Diagnoses Not on filedocumented in this encounter Care Teams Blood Bank Laboratory Technician Relationship Specialty Start Date End Date Tristan Collins MD PCP - General 06/26/11 05/12/23 documented as of this encounter
--- OUTSIDE RECORDS SUMMARY | 2024-02-29 08:19 | XMS_ITS | Encounter Summary ---
Author Organization [facility] Address [address] [place] [address] Care Team Providers Care Manager File Name Role Phone Tristan Collins MD Primary Care Provider Unav ailable Reason for Visit * Reason Onset Date Comments Results 10/27/2019 Encounter Details Date Type Department Care Team (Late st Contact Info) Description 10/27/2019 Telephone [facility] Sleep Program - [address] [address] Emilia Pascual RN [address] [place] [address] Results Social History Tobacco Use Types Packs/Day Years [...] Telephone Encounter - Emilia Pascual RN - 11/07/2019 1531 EDT Spoke with pt. Made patient aware of split sleep study results; NERIS, effectively controlled on CPAPas per . Doctor recommending and prescribing CPAP treatment. The [facility] be [facility] [place] [facility] tele number given to patient. Pt stated he has a machine w/ a modem that is about 2-3years old that he got from [place] so he is not eligible for a new machine at this time. His insurance required a new study so he could get new supplies as he had been non- compliant. Pt encouraged to work with [facility] to have machine adjusted, probably can do thru modem, and to obtain new supplies. Encouraged to call if any problems or questions. Routed message to [employer] for scheduling. * Telephone Encounter - Emilia Pascual RN - 10/31/2019 1001 EDT Left message asking patient to call me at the Sleep Program. * Telephone Encounter - Emilia Pascual RN - 10/27/2019 0921 EDT Left message asking patient to call me at the Sleep Program. documented in this encounter Plan of Treatment Not on file documented as of this encounter Visit Diagnoses Not on filedocumented in this encounter Care Teams Manager File Relationship Specialty Start Date End Date Tristan Collins MD PCP - General 06/26/11 05/12/23 documented as of this encounter
--- OUTSIDE RECORDS SUMMARY | 2024-02-29 08:19 | XMS_ITS | Encounter Summary ---
Author Organization [facility] Address [address] [place] [address] Care Team Providers Care Fios Line Installer Name Role Phone Tristan Collins MD Primary Care Provider Unav ailable Reason for Visit * Reason Onset Date Comments DME 11/08/2020 Encounter Details Date Type Department Care Team (Late st Contact Info) Description 11/08/2020 Telephone [facility] Sleep Program - [address] [place] [address] [place], [place] [id number] Sleep, Tech [address] [place], [place] [address] DME Social History Tobacco Use Types Packs/Day [...] * Telephone Encounter - Lupe Carlson - 11/08/2020 1250 EDT Called [facility] in [facility] to see if we could reestablish remote access to pt's PAP device. Reached their answering service, the gentleman I spoke with took down the information and states he willhave them call me back. documented in this encounter Plan of Treatment Not on file documented as of this encounter Visit Diagnoses Not on filedocumented in this encounter Care Teams Fios Line Installer Relationship Specialty Start Date End Date Tristan Collins MD PCP - General 06/26/11 05/12/23 documented as of this encounter
--- OUTSIDE RECORDS SUMMARY | 2024-02-29 08:19 | XMS_ITS | Encounter Summary ---
Author Organization [facility] Address [address] [place] [address] Care Team Providers Care Technical Illustrator Name Role Phone Tristan Collins MD Primary Care Provider Unav ailable Reason for Visit * Reason Onset Date Comments Appointment Related 12/21/2019 Encounter Details Date Type Department Care Team (Late st Contact Info) Description 12/21/2019 Telephone [facility] Sleep Program - [address] [place] [address] [place], [place] [id number] Марина Tsai NP [address] [facility] [address] [place] [address] Appointment Related Social History Tobacco [...] * Telephone Encounter - Meme Benitez - 12/21/2019 0958 EDT Called pt to schedule TECH DWNL - FUR/COMPLIANCE appts LMOM w/ details to call back for scheduling documented in this encounter Plan of Treatment Not on file documented as of this encounter Visit Diagnoses Not on filedocumented in this encounter Care Teams Technical Illustrator Relationship Specialty Start Date End Date Tristan Collins MD PCP - General 06/26/11 05/12/23 documented as of this encounter
--- OUTSIDE RECORDS SUMMARY | 2024-02-29 08:19 | XMS_ITS | Encounter Summary ---
Author Organization [facility] Address [address] [place] [address] Care Team Providers Care Costumed Character Entertainer Name Role Phone Tristan Collins MD Primary Care Provider Unav ailable Reason for Visit * Reason Onset Date Comments Appointment Related 02/09/2020 Encounter Details Date Type Department Care Team (Late st Contact Info) Description 02/09/2020 Telephone [facility] Sleep Program - [address] [place] [address] [place], [place] [phone] Марина Tsai NP 1 [facility] [address] [place] [address] Appointment Related Social History Tobacco [...] * Telephone Encounter - Mervat Daily - 02/28/2020 1422 EDT PT called returning Meme's call to schedule tech dwld. PT reports that his reservoir is full but does not go down and he wakes very dry. Please advise PT, he will have machine for DWLD appt. 02/28 1:45 * Telephone Encounter - Meme Benitez - 02/09/2020 0921 EDT Called pt x2 to schedule TECH/DWNL / FUR ZOOM appts LMOM w/ details to khris back for scheduling documented in this encounter Plan of Treatment Not on file documented as of this encounter Visit Diagnoses Not on filedocumented in this encounter Care Teams Costumed Character Entertainer Relationship Specialty Start Date End Date Tristan Collins MD PCP - General 06/26/11 05/12/23 documented as of this encounter
--- OUTSIDE RECORDS SUMMARY | 2024-02-29 08:19 | XMS_ITS | Encounter Summary ---
Author Organization [facility] Address [address] [place] [address] Care Team Providers Care Manager Freelance Name Role Phone Tristan Collins MD Primary Care Provider Unav ailable Reason for Referral * Sleep Study (Routine/Next Available) - Specialty Report Received Specialty Diagnoses / Procedures Referred By Hemant linn Referred To Contact Sleep Medicine Diagnoses Chronic insomnia Procedures SPLIT NIGHT POLYSOMNOGRAM (DIAGNOSTIC POLYSOMNOGRAM WITH SPLIT TO CPAP/BIPAP TITRATION) Yelena Argueta MD [address] [place] [address] [facility] [address] [address] Referral ID Status Reason Start Date Expiration Date V isits Requested Visits Authorized [id number] Specialty Report Received 09/01/2019 1 1 Reason for Visit * Reason Comments New Patient Visit * Consult (Routine) - Closed Specialty Diagnoses / Procedures Referred By Hemant linn Referred To Contact Sleep Medicine Diagnoses Obstructive sleep apnea (adult) (pediatric) Vilma Givens [address] [facility] [place] [address] [facility] [address] [address] Referral ID Status Reason Start Date Expiration Date Visits Re quested Visits Authorized [id number] Closed 1 1 Encounter Details Date Type Department Care Team (Late st Contact Info) Description 08/31/2019 11:00 EST Office Visit [facility] - [address] [address] Yelena Argueta MD [address] [place] [address] Obstructive sleep apnea (Primary Dx); Chronic insomnia Social History Tobacco Use Types Packs/Day Years [...] Sign Reading Time Taken Comments Blood Pressure 144/86 08/31/2019 1114 EST Pulse 77 08/31/2019 1114 EST Temperature - - Respiratory Rate 16 08/31/2019 1114 EST Oxygen Saturation 96% 08/31/2019 1114 EST Inhaled Oxygen Concentration - - Weight 89.8 kg (198 lb) 08/31/2019 1114 EST Height 167.6 cm (5' 6) 08/31/2019 1114 EST Body Mass Index 31.96 08/31/2019 1114 EST documented in this encounter Functional Status Functional [...] No 02/22/2018 documented as of this encounter Patient Instructions * Patient Instructions* Yelena Argueta MD - 08/31/2019 11:00 EST 1. You will be contacted regarding the scheduling of your sleep study. Once the study is completed,you will also be contacted with the study results and recommendations, as determined by the interpreting physician. If you do not receive these results within two weeks of your study, please contact our office at [phone]. 2. We discussed online cbti today. Below you will find the references. On-line Programs: http://shuti.me/ http://cbtforinsomnia.com/ http://www.restorecbt.com/ Consider participating in The Sleep Well Program (Cognitive BehavioralTreatment for Insomnia) documented in this encounter Progress Notes * Yelena Argueta MD - 08/31/2019 1100 EST CHIEF COMPLAINT: Obstructive sleep apnea HISTORY OF PRESENT ILLNESS: Yasmani Glaser is a 49 y.o. yo male with history of hypertension, anxiety, gastroesophageal reflux disease, and cirrhosis secondary to MIT[place] who presents today to establish care for obstructive sleep apnea. He initially presented with snoring and frequent nocturnal awakenings to an outside sleep center, and he underwent a split night PSG at [facility] in [place], [place] which was reportedly consistent with obstructive sleep apnea. He continued use of PAP until two years ago,when he began waking up and noticed a weird taste in his mouth. He reports that he was cleaning his supplies regularly at that time and that his mask was only a few months old. This did prompt him to discontinue PAP, which resulted in resolution of the taste. He states that hehas lost 60 lbs since the time of his last sleep study. His prior settings were APAP 6 to 12 cm H2O. He snores loudly. He has not had witnessed apneas. He does wake up gasping for air. He does occasionally have morning headaches. He does not experience nocturnal diaphoresis or dry mouth on awakening. Sleep is typically in the supine and lateral positions. He reports somniloquy but denies somnambulism. He does not act out his dreams. He does not have uncomfortable sensation in the lower extremities improved by movement/stretching. He denies any frequent leg kicking during sleep. He denies sleep paralysis, hallucinations, or cataplexy. Bedtime is 1030-11pm. Rise time is 3am. Sleep latency is 5-10 minutes. He wakes up several times during the night due to back pain, but he is usually able to return to sleep quickly after changing positions. He generally has an awakening at 3am, after which he gets up to watch television in the living room. He no longer attempts to return to sleep at that time, and he reports that when he previously did attempt this he would experience panic attacks. He does not take naps. He takes citalopram 20mg qam, as prescribed by his primary care physician. He denies any significant daytime sleepiness. He has not experienced drowsiness while driving or had a motor vehicle accident due to drowsy driving. ESS:Total: 3 Patient Active Problem List Diagnosis ??? Back pain ??? Liver cirrhosis secondary to nonalcoholic steatohepatitis ([place]) ([facility]) Past Medical History: Diagnosis Date ??? Anxiety ??? Back pain 08/11/2014 S/p repeated lumbar surgeries with posterior spinal fusion and multiple revisions complicated by wound infection due to Staph epidermidis. ??? Depression ??? Diarrhea ??? GERD (gastroesophageal reflux disease) ??? HTN (hypertension) ??? Liver cirrhosis secondary to nonalcoholic steatohepatitis ([place]) ([facility]) 09/04/2015 ??? Lung disease ??? Nonspecific finding on examination of urine ??? Sleeping difficulty ??? Staph infection 06/2014 s/p back surgery Past Surgical History: Procedure Laterality Date ??? BONE INCISION AND DRAINAGE x3 ??? COLONOSCOPY 2014 ??? HIP SURGERY ??? LIVER BIOPSY 07/2015 ??? LUMBAR FUSION ??? OTHER SURGICAL HISTORY SI joint infusion x3 Family History Problem Relation Age of Onset ??? Diabetes Father ??? Heart Disease Father No family history of sleep disorders ??? Cancer Father Social History Caffeine: none. Alcohol: none Tobacco: none Illicit Drug use: none Current Outpatient Medications: carvedilol (COREG) 12.5 mg tablet chlorthalidone (HYGROTON) 25 mg tablet citalopram (CELEXA) 20 mg tablet fluticasone-salmeterol (ADVAIR) 250-50 mcg/dose diskus inhaler gabapentin (NEURONTIN) 300 mg capsule HYDROcodone-acetaminophen (ZYDONE) 10-400 mg per tablet NAPROXEN ORAL pantoprazole (PROTONIX) 40 mg tablet polyethylene glycol (GOLYTELY;NULYTELY) 236-22.74-6.74 -5.86 gram suspension No current facility-administered medications for this visit. No Known Allergies REVIEW OF SYSTEMS: A comprehensive 10 point review of systems was reviewed and will be scanned intothe chart. Pertinent positives include postnasal drip, neuropathy, back pain. Wt Readings from Last 5 Encounters: 09/20/15 100.7 kg (222 lb) 09/04/15 (!) 103.9 kg (229 lb) 06/29/15 (!) 102.8 kg (226 lb 11.2 oz) 05/23/15 (!) 105.7 kg (233 lb) 04/05/15 (!) 109 kg (240 lb 4.8 oz) BP (!) 144/86 (BP Cuff Location: Left arm, BP Patient Position: Sitting, BP Cuff Sizes: Adult, small) Pulse 77 Resp 16 Ht 167.6 cm (66) Wt 89.8 kg (198 lb) SpO2 96% BMI 31.96 kg/m?? PHYSICAL EXAM: General: well developed, well nourished, male , in no apparent distress. HEENT: normocephalic, atraumatic. Sclerae are anicteric. There is no lid lag or conjunctival injection. Nares are patent without mucosal lesion or obstruction. Lips are without lesion. Good dentition. There are no mucosal lesions evident. MP III. Neck: Supple without adenopathy, the trachea is midline. Neck circumference 15.5 inches. CV: Regular rate and rhythm. No murmurs, rubs or gallops. Resp: Clear to ascultation throughout. No increased work of breathing. GI: Bowel sounds are present. Soft, nontender, nondistended. MSK: No cyanosis, clubbing, or edema. Neurologic: Awake, alert, and oriented X 4. No aphasia or dysarthria. VFF. PERRL. EOMI. Facial sensations intact. No facial asymmetry. Palate elevates symmetrically. Tongue protrudes midline. Shoulder shrug 5/5 and symmetric. Motor: 5/5 strength in all four extremities. Tone is normal. No involuntary movements. Sensation: Intact to light touch throughout. Cerebellar: Finger to nose intact. Gait: Narrow based and normal. Skin: Warm and dry. DATA: Compliance (08/01/17-08/30/17) Usage: days 50% Usage > 4 hours: 33% Usage <4 hours: 66.7% Auto-CPAP mean pressure: 9.6 cm H2O Average Device Pressure <=90% o ftime: 11.7 cm H2O Average Time in Large Leak Per Day: 24 seconds Average AHI: 4.0 ASSESSMENT: 49 y.o. yo male with history of hypertension, anxiety, gastroesophageal reflux disease, and cirrhosis secondary to [place] who presents with snoring, waking gasping for air, and morning headaches, concerning for obstructive sleep apnea. He was previously diagnosed with obstructive sleep apnea, which is currently untreated, at an outside sleep center. Given the age of his prior sleep study as well asthe significant interval weight loss, we have discussed obtaining a repeat study today. We have discussed how sleep disordered breathing is diagnosed. We have also discussed treatment options for obstructive sleep apnea including PAP, positional therapy, mandibular advancement devices, and surgery. We have discussed how untreated obstructive sleep apnea can cause unrefreshing sleep and excessive daytime sleepiness, as well as in the computer terminal operator how it contributes to to risk of cardiovascular disease, arrhythmias, recalcitrant hypertension, glucose abnormalities, stroke, and obesity. He is amenable to obtaining a repeat study. He has chronic sleep maintenance insomnia. We have discussed how obstructive sleep apnea can lead to sleep fragmentation and contribute to difficulty sleeping. We have also discussed the use of cognitive behavioral therapy in the management of insomnia. Suspect that cbti along with continued optimal management of his anxiety is likely to be most beneficial. He is interested in considering cbti, and he will be provided with references today. We have reviewed the importance of good sleep hygiene practices, and he has voiced understanding. PLAN: 1. Will order a split night PSG for AHI > 10 today. 2. Pt has been counseled to avoid driving while drowsy. 3. Recommend weight loss with healthy diet and exercise. 4. Sleep hygiene practices including regular bed/rise times, stimulus control, adequate sleep time,avoiding caffeine/alcohol prior to sleep, and sleeping in a cool/dark room have been encouraged. Hehas also been counseled in use of PMR. 5. Recommend avoiding eating at bedtime. 6. He will sign a release of medical records form today for prior studies. 7. Online cbti references will be provided today. 8. He will follow-up in clinic in 4 months, and he will contact the clinic if any issues arise sooner. Yelena Argueta M.D. Diplomate of [place] [employer] Added Qualification in sleep medicine documented in this encounter Plan of Treatment Scheduled Orders Name Type Priority Associated Diagnoses Orde r Schedule SPLIT NIGHT POLYSOMNOGRAM (DIAGNOSTIC POLYSOMNOGRAM WITH SPLIT TO CPAP/BIPAP TITRATION) Sleep Center Routine Chronic insomnia Ordered: 09/01/2019 documented as of this encounter Visit Diagnoses Diagnosis Obstructive sleep apnea- Primary Obstructive sleep apnea (adult) (pediatric) Chronic insomnia Insomnia, unspecified documented in this encounter Care Teams Manager Freelance Relationship Specialty Start Date End Date Tristan Collins MD PCP - General 06/26/11 05/12/23 documented as of this encounter
--- OUTSIDE RECORDS SUMMARY | 2024-02-29 08:20 | XMS_ITS | Encounter Summary ---
Author Organization [facility] Address [address] [place] [address] Care Team Providers Care Infection Control Practitioner Name Role Phone Tristan Collins MD Primary Care Provider Unav ailable Reason for Visit * Reason Onset Date Comments Medication Management 04/05/2015 needs goly tely script sent to [facility] [place] next Thursday Encounter Details Date Type Department Care Team (Late st Contact Info) Description 04/05/2015 Telephone [facility] Gastroenterology - [facility] [address] [place], [place] [address] Keyshawn Bui MD [address] [facility] [place] [address] Medication Management (needs golytely script sent to [facility] [place] next Thursday) Social History Tobacco Use Types Packs/Day Years Used Date Smoking Tobacco: Never Smokeless Tobacco: Former Comments:daily for 28 years Alcohol Use Standard Drinks/Week Comments No 0 (1 standard drink = 0.6 oz pur e alcohol) Sex and Gender Information Value Date Recorded Sex Assigned at Not on file Gender Identity Not on file Sexual Orientation Not on file documented as of this encounter Functional Status Functional Status Response Date of Assess ment Because of a physical, menta l, or emotional condition, does this person have difficulty doing errands alone such as visiting a doctor's office or shopping? No 04/05/2015 Cognitive Status Response Date of Assessm ent Because of a physical, menta l, or emotional condition, does this person have serious difficulty concentrating, remembering, or making decisions? No 04/05/2015 documented as of this encounter Ordered Prescriptions Prescription Sig Dispensed Refills Start Date End Da te polyethylene glycol (GOLYTELY;NULYTELY) 236-22.74-6.74 -5.86 gram suspension Instructions mailed once procedure scheduled. Questions: [facility] Gastroenterology: [phone] or GI Doctor's Office. 4000 mL 0 04/05/2015 10/31/2021 documented in this encounter Miscellaneous Notes * Telephone Encounter - Paulina Law RN - 04/05/2015 1530 EDT Script for porscheytedaily was resent to his local pharmacy- [facility] in [place], patient called. documented in this encounter Plan of Treatment Not on file documented as of this encounter Visit Diagnoses Not on filedocumented in this encounter Discontinued Medications Medication Sig Discontinue Reason Start Date End Da te polyethylene glycol (GOLYTELY;NULYTELY) 236-22.74-6.74 -5.86 gram suspension Instructions mailed once procedure scheduled. Questions: [facility] Gastroenterology: [phone] or GI Doctor's Office. Reorder 04/05/2015 04/05/2015 documented as of this encounter Care Teams Infection Control Practitioner Relationship Specialty Start Date End Date Tristan Collins MD PCP - General 06/26/11 05/12/23 documented as of this encounter
--- OUTSIDE RECORDS SUMMARY | 2024-02-29 08:20 | XMS_ITS | Encounter Summary ---
Author Organization [facility] Address [address] [place] [address] Care Team Providers Care Director Employee Safety And Health Name Role Phone Tristan Collins MD Primary Care Provider Unav ailable Reason for Referral * Radiology Services (Routine) - Closed Specialty Diagnoses / Procedures Referred By Contac t Referred To Contact Diagnoses LFTs abnormal Procedures IR TRANSCATH BX Yaniv Herbert MD PhD [address] [place] [phone] Referral ID Status Reason Start Date Expiration Date Visits Re quested Visits Authorized [id number] Closed 07/18/2015 1 1 Encounter Details Date Type Department Care Team (Late st Contact Info) Description 07/18/2015 Orders Only [facility] Gastroenterology - [place] [id number] Yaniv Herbert MD PhD [address] [place] [phone] LFTs abnormal (Primary Dx) Social History Tobacco Use Types [...] visiting a doctor's office or shopping? No 05/23/2015 Cognitive Status Response Date of Assessm ent Because of a physical, menta l, or emotional condition, does this person have serious difficulty concentrating, remembering, or making decisions? No 05/23/2015 documented as of this encounter Plan of Treatment Not on file documented as of this encounter Procedures Procedure Name Priority Date/Time Associated Diagnosis Comments IR TRANSCATH BX Routine 08/20/2015 14:33 EST LFTs abnormal documented in this encounter Results * IR TRANSCATH BX (08/20/2015 14:33 EST) Anatomical Region Laterality Modality Other 08/20/2015 14:3 3 EST 08/22/2015 18:43 EST Narrative 08/22/2015 18:43 EST Transjugular liver biopsy August 20, 2015 1:30 PM Clinical History: Abnormal LFTs Comparison: None Procedure and findings: The patient was met in the preprocedural area where the rationale for the procedure as well as the risks and benefits were explained. The patient provided informed written and verbal consent. A directed cardiorespiratory examination was performed. A timeout was performed confirming appropriate patient, procedure, and presence of necessary equipment. During the procedure the patient received intravenous conscious sedation with monitoring of blood pressure, heart rate, respiration and O2 saturation. The right internal jugular vein was identified with ultrasound and seen to be patent and compressible. The overlying skin is a cutaneous tissues were anesthetized with buffered 1% lidocaine. Under continuous ultrasound guidance, the right internal jugular vein was accessed with a 4-[place] micropuncture kit. Bulk Receiver images have been retained in the patient record. A 10-[place] sheath was placed and a wire was passed into the inferior vena cava. The patient has variant anatomy with a right inferior hepatic vein present. ??The right hepatic vein was selected. A right hepatic venogram showed acceptable anatomy for biopsy. ??A wedged hepatic venogram was performed showing normal portal venous anatomy. ?? Pressures were obtained: Wedged portal venous pressure: 27 mmHg Free hepatic venous pressure: 18 mmHg IVC: 16 mmHg Right Atrium: 15 mmHg The catheter was repositioned and the wedge pressure confirmed to be elevated. ??A Stiff wire was placed and the biopsy sheath was advanced into the right hepatic vein. ??Multiple 20g core biopsies were obtained and submitted in formalin. ??The inner canula was withdrawn through the outer portion of the biopsy sheath. ??The outer portion was then removed. ??The access sheath was then withdrawn and hemostasis obtained using manual pressure and a thrombin patch. A sterile dressing was placed. The patient tolerated the procedure well and there were no immediate complications. The patient was sent to recovery and ultimately discharged home. Dr. Torres was present for the entire procedure. Fluoroscopy time: 10 minutes Contrast: 30 mL Impression: 1. Right inferior hepatic vein identified, normal variant. 2. Normal wedged portal venogram. 3. Elevated hepatic venous pressure gradient of 9 mmHg. 4. Multiple core biopsies submitted in formalin for pathology. I have personally reviewed the images and the above interpretation and agree with the findings. Procedure Note Logan Torres MD - 08/22/2015 Transjugular liver biopsy August 20, 2015 1:30 PM Clinical History: Abnormal LFTs Comparison: None Procedure and findings: The patient was met in the preprocedural area where the rationale for the procedure as well as the risks and benefits were explained. The patient provided informed written and verbal consent. A directed cardiorespiratory examination was performed. A timeout was performed confirming appropriate patient, procedure, and presence of necessary equipment. During the procedure the patient received intravenous conscious sedation with monitoring of blood pressure, heart rate, respiration and O2 saturation. The right internal jugular vein was identified with ultrasound and seen to be patent and compressible. The overlying skin is a cutaneous tissues were anesthetized with buffered 1% lidocaine. Under continuous ultrasound guidance, the right internal jugular vein was accessed with a 4-[place] micropuncture kit. Bulk Receiver images have been retained in the patient record. A 10-[place] sheath was placed and a wire was passed into the inferior vena cava. The patient has variant anatomy with a right inferior hepatic vein present. The right hepatic vein was selected. A right hepatic venogram showed acceptable anatomy for biopsy. A wedged hepatic venogram was performed showing normal portal venous anatomy. Pressures were obtained: Wedged portal venous pressure: 27 mmHg Free hepatic venous pressure: 18 mmHg IVC: 16 mmHg Right Atrium: 15 mmHg The catheter was repositioned and the wedge pressure confirmed to be elevated. A Stiff wire was placed and the biopsy sheath was advanced into the right hepatic vein. Multiple 20g core biopsies were obtained and submitted in formalin. The inner canula was withdrawn through the outer portion of the biopsy sheath. The outer portion was then removed. The access sheath was then withdrawn and hemostasis obtained using manual pressure and a thrombin patch. A sterile dressing was placed. The patient tolerated the procedure well and there were no immediate complications. The patient was sent to recovery and ultimately discharged home. Dr. Torres was present for the entire procedure. Fluoroscopy time: 10 minutes Contrast: 30 mL Impression: 1. Right inferior hepatic vein identified, normal variant. 2. Normal wedged portal venogram. 3. Elevated hepatic venous pressure gradient of 9 mmHg. 4. Multiple core biopsies submitted in formalin for pathology. I have personally reviewed the images and the above interpretation and agree with the findings. Yaniv Herbert MD PhD IMG IR ORDERABL ES documented in this encounter Visit Diagnoses Diagnosis LFTs abnormal- Primary Other abnormal blood chemistry documented in this encounter Care Teams Director Employee Safety And Health Relationship Specialty Start Date End Date Tristan Collins MD PCP - General 06/26/11 05/12/23 documented as of this encounter
--- OUTSIDE RECORDS SUMMARY | 2024-02-29 08:20 | XMS_ITS | Encounter Summary ---
Author Organization [facility] Address [address] [place] [address] Care Team Providers Care Package Handler Name Role Phone Tristan Collins MD Primary Care Provider Unav ailable Reason for Visit * Reason Comments New Patient Visit elevated liver enzym es * Consult (Routine) - Specialty Report Received Specialty Diagnoses / Procedures Referred By Contact Referred To Contact Gastroenterology and Hepatology Diagnoses Elevated liver enzymes Keyshawn Bui MD [address] [phone] [facility] [facility] [address] [place] [address] Referral ID Status Reason Start Date Expiration Date Visits Requested Visits Authorized [id number] Specialty Report Received Specialty Services Required 5 1 1 Encounter Details Date Type Department Care Team (Late st Contact Info) Description 06/29/2015 10:00 EST Office Visit [facility] Gastroenterology - [facility] [address] [place] [address] Yaniv Herbert MD PhD [address] [place] [phone] LFTs abnormal (Primary Dx) Social History [...] Sign Reading Time Taken Comments Blood Pressure 124/92 06/29/2015 0952 EST Pulse 72 06/29/2015 0952 EST Temperature - - Respiratory Rate - - Oxygen Saturation - - Inhaled Oxygen Concentration - - Weight 102.8 kg (226 lb 11.2 oz) 06/29/2015 0952 EST Height 167.6 cm (5' 6) 06/29/2015 0952 EST Body Mass Index 36.59 06/29/2015 0952 EST documented in this encounter Functional Status [...] No 05/23/2015 documented as of this encounter Progress Notes * Yaniv Herbert MD - 06/29/2015 1220 EST This office note has been dictated. documented in this encounter Consult Notes * Yaniv Herbert MD - 06/29/2015 1442 EST [facility] GASTRO[facility]OLOGY AND HEPATOLOGY CONSULTATION - 06/29/2015 Tristan Collins MD [address], [address] [place] [id number] Collins: This is to let you know that I have seen your patient, Yasmani Glaser, in the office at the request of my colleague, Dr Keyshawn Bui. As you know, he is a 45-year-old man with recently diagnosed abnormal biochemical liver tests. He has been seen by Dr Bui for recurrent nausea, vomiting, and diarrhea, which was precipitated by back surgery, osteomyelitis, use of narcotics and prolonged antibiotics. Evaluation included an upper endoscopy and colonoscopy, each of which was grossly unremarkable. In the course of the evaluation, elevations in serum aminotransferases were noted in April 2015. Interestingly, serum aminotransferases were normal in August 2014. There had been no recent add ition of medications or use of complementary or alternative medications. Past health is otherwise significant for hypertension, gastroesophageal reflux, and mood disorder. A 12-point review of systems was taken, which was otherwise negative. Family history is negative forliver disease. 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 Alcohol consumption is limited to 12 beers per month. There is no history of intranasal or injection drug use. There are no known allergies. Current medications include chlorthalidone, Celexa, Advair, gabapentin, diazepam, oxycodone, and pantoprazole. On physical examination, the patient was found to be an obese white man, weight 226 pounds (BMI 36.59), blood pressure 124/92, pulse 72. The skin revealed no spider angiomata. The sclerae were clear.The oropharynx was clear. The neck revealed no lymphadenopathy. The lungs were clear. Cardiac examination revealed a regular rhythm. The abdomen revealed no obvious ascites. It was soft, nontender, and no masses were appreciated. I could not palpate a liver or spleen. There was no pretibial edema. Laboratory data obtained in April 2015 show bilirubin 0.9, alkaline phosphatase 85, ALT 89, AST 142, albumin 4.1. In summary, Mr Glaser has unexplained elevations in serum aminotransferases in a background of components of metabolic syndrome. The most likely etiology is nonalcoholic fatty liver disease (NAFLD). The treatment for NAFLD is weight loss through dietary calorie reduction. Formal input from a crystal gazer may be helpful in this regard. I cannot exclude the possibility of other potentially treatable causes of liver injury, including chronic hepatitis B, hepatitis C, iron overload, and autoimmune disorders that affect the liver. An outside possibility is drug-induced hepatotoxicity. That said, as long as serum aminotransferases do not progressively rise above 3 times the upper limit of normal, all medications can be continued.I will repeat routine laboratory testing (for calculation of the FIB-4 score, a noninvasive index of hepatic fibrosis), and I will arrange for a serological evaluation, and I will be in touch with you and the patient with the results. Assuming that the serological evaluation is unrevealing and the FIB-4 score is below 1.31 (90% negative predictive value for advanced hepatic fibrosis), I would recommend that you continue to monitorthe patient at least yearly with a complete blood count, comprehensive metabolic panel, and prothrombin time. If the FIB-4 score rises progressively above 1.31, consideration could be given to a liver biopsy to confirm the underlying diagnosis and extent of hepatic fibrosis. If this is the case, please call me directly. Thank you once again for allowing me to see this patient in consultation with you. Should you have any further questions regarding this evaluation, please feel free to contact me at any time. Sincerely, Yaniv Herbert MD,PhD 12 19 PM - Yaniv Herbert MD,PhD cn Dictation ID: [id number] cc: Tristan Collins MD, [address], [place] [address] Keyshawn Bui MD, [facility] - Gastroenterology [address] [place] [address] documented in this encounter Plan of Treatment Not on file documented as of this encounter Results * HEPATITIS C ANTIBODY WITH REFLEX TO HCV RNA BY PCR (06/29/2015 10:50 EST) Hepatitis C Ab Negative 06/29/2015 13:44 EST [facility] Comment:Reference Range: Neg ative Blood specimen (specimen) BLOOD SPECIMEN / Unknown 06/29/2015 10:50 EST 06/29/2015 11:24 EST Yaniv Herbert MD PhD CHEMISTRY & BLO OD GAS ORDERABLES [facility] [address] [place] [address] * HEPATITIS A TOTAL ANTIBODY (06/29/2015 10:50 EST) Hep A Antibody Negative 06/29/2015 13:44 EST [facility] Comment:Reference Range: Neg ative Blood specimen (specimen) BLOOD SPECIMEN / Unknown 06/29/2015 10:50 EST 06/29/2015 11:24 EST Yaniv Herbert MD PhD CHEMISTRY & BLO OD GAS ORDERABLES Performing Organization Address [facility] Co de Phone Number [facility] [address] [place] [address] * HEPATITIS B SURFACE ANTIGEN (06/29/2015 10:50 EST) Pathologist [facility] Hepatitis B Surface Ag Negative 06/29/2015 13:44 EST [facility] Comment:Reference Range: Neg ative Blood specimen (specimen) BLOOD SPECIMEN / Unknown 06/29/2015 10:50 EST 06/29/2015 11:24 EST Yaniv Herbert MD PhD CHEMISTRY & BLO OD GAS ORDERABLES Performing Organization Address [facility] de Phone Number [facility] [address] [place] [address] * TISSUE TRANSGLUTAMINASE AB (06/29/2015 10:50 EST) Pathologist [facility] Tissue Transglut Ab <1.2 <4 U/mL 07/02/2015 10:56 EST [facility] Comment: The following results were obtained with the [employer] QUANTA Lite R h-tTG IgA LEXII assay on the medineering DSX. A negative result may be due to IgA deficiency and does not rule out celiac disease. Blood specimen (specimen) BLOOD SPECIMEN / Unknown 06/29/2015 10:50 EST 06/29/2015 11:24 EST Yaniv Herbert MD PhD IMMUNOLOGY AND SEROLOGY ORDERABLES Performing Organization Address [facility] Co de Phone Number [facility] [address] [place] [address] * (ABNORMAL) IMMUNOGLOBULINS (06/29/2015 10:50 EST) Pathologist [facility] IgG 1,900(H) 751 - 1,560 mg/dl 06/29/2015 15:19 EST [facility] IgA 472(H) 82 - 453 mg/dl 06/29/2015 15:19 EST [facility] IgM 122 46 - 304 mg/dl 06/29/2015 15:19 EST [facility] Blood specimen (specimen) BLOOD SPECIMEN / Unknown 06/29/2015 10:50 EST 06/29/2015 11:24 EST Yaniv Herbert MD PhD CHEMISTRY & BLO OD GAS ORDERABLES Performing Organization Address City/[facility]/ZIP Co de Phone Number [facility] [address] [place] [address] * IBC (06/29/2015 10:50 EST) TIBC 322 261 - 462 ug/dl 06/29/2015 12:33 EST [facility] Blood specimen (specimen) BLOOD SPECIMEN / Unknown 06/29/2015 10:50 EST 06/29/2015 11:24 EST Yaniv Herbert MD PhD CHEMISTRY & BLO OD GAS ORDERABLES Performing Organization Address [facility] Co de Phone Number [facility] [address] [place] [address] * IRON (06/29/2015 10:50 EST) Iron 120 49 - 181 ug/dl 06/29/2015 12:33 EST [facility] Blood specimen (specimen) BLOOD SPECIMEN / Unknown 06/29/2015 10:50 EST 06/29/2015 11:24 EST Yaniv Herbert MD PhD CHEMISTRY & BLO OD GAS ORDERABLES Performing Organization Address [facility] Co de Phone Number [facility] [address] [place] [address] * (ABNORMAL) FERRITIN (06/29/2015 10:50 EST) Ferritin 361(H) 22 - 322 ng/ml 06/29/2015 12:33 EST [facility] Blood specimen (specimen) BLOOD SPECIMEN / Unknown 06/29/2015 10:50 EST 06/29/2015 11:24 EST Yaniv Herbert MD PhD CHEMISTRY & BLO OD GAS ORDERABLES Performing Organization Address City/[facility]/ZIP Co de Phone Number [facility] [address] [place] [address] * (ABNORMAL) HEMAGRAM (06/29/2015 10:50 EST) WBC 9.20 4.0 - 10.4 K/cmm 06/29/2015 11:33 [facility] RBC 4.82 4.36 - 5.78 M/cmm 06/29/2015 11:33 [facility] Hemoglobin 14.3 13.8 - 17.3 gm/dl 06/29/2015 11:33 [facility] HCT 43.5 39.5 - 50.2 % 06/29/2015 11:33 [facility] MCV 90 81 - 95 fl 06/29/2015 11:33 [facility] MCH 29.8 27.6 - 33.0 pg 06/29/2015 11:33 [facility] MCHC 33.0 32.8 - 36.4 gm/dl 06/29/2015 11:33 [facility] RDW-CV 15.8(H) 11.8 - 14.1 % 06/29/2015 11:33 [facility] RDW-SD 49.4(H) 36.5 - 45.9 fl 06/29/2015 11:33 [facility] PLT 266 141 - 320 K/cmm 06/29/2015 11:33 [facility] MPV 8.4 7.5 - 11.2 fl 06/29/2015 11:33 [facility] Blood specimen (specimen) BLOOD SPECIMEN / Unknown 06/29/2015 10:50 EST 06/29/2015 11:24 EST Yaniv Herbert MD PhD HEMATOLOGY & PF 4 ORDERABLES Performing Organization Address City/[facility]/ZIP Co de Phone Number [facility] [address] [place] [phone] * (ABNORMAL) COMPREHENSIVE METABOLIC PANEL (CMP) (06/29/2015 10:50 [facility]) Potassium 4.2 3.5 - 5.0 mEq/L 06/29/2015 12:13 [facility] Sodium 139 136 - 145 mEq/L 06/29/2015 12:13 [facility] Chloride 100 96 - 110 mEq/L 06/29/2015 12:13 [facility] CO2 21(L) 24 - 32 mEq/L 06/29/2015 12:13 [facility] Total Alkaline Phosphatase 94 38 - 126 U/L 06/29/2015 12:13 [facility] Bilirubin, Total 1.4(H) <1.4 mg/dl 06/29/20 15 12:13 [facility] AST 126(H) 15 - 46 U/L 06/29/2015 12:13 [facility] ALT 60 21 - 72 U/L 06/29/2015 12:13 [facility] Albumin 4.2 3.4 - 4.9 g/dl 06/29/2015 12:13 [facility] Total Protein 8.1 6.3 - 8.2 g/dl 06/29/2015 12:13 [facility] Creatinine 0.62(L) 0.66 - 1.25 mg/dl 06/29/2015 12:13 [facility] GFR, Calculated 118 >60 ml/min/1.7 3m2 06/29/2015 12:13 [facility] Comment: eGFR calculated using CKD-EPI equation for non Americans. Multiply eGFR by 1.16 for Americans. BUN 6(L) 10 - 26 mg/dl 06/29/2015 12:13 [facility] Calcium 9.2 8.5 - 10.5 mg/dl 06/29/2015 12:13 [facility] Calculated Calcium 9.4 8.5 - 10.5 mg/dl 06/29/2015 12:13 [facility] Glucose, Serum 89 70 - 100 mg/dl 06/29/2015 12:13 [facility] Fasting? YES 06/29/2015 10:51 EST [facility] Blood specimen (specimen) BLOOD SPECIMEN / Unknown 06/29/2015 10:50 EST 06/29/2015 11:24 EST Yaniv Herbert MD PhD CHEMISTRY & BLO OD GAS ORDERABLES [facility] [address] [place] [address] documented in this encounter Visit Diagnoses Diagnosis LFTs abnormal- Primary Other abnormal blood chemistry documented in this encounter Care Teams Package Handler Relationship Specialty Start Date End Date Tristan Collins MD PCP - General 06/26/11 05/12/23 documented as of this encounter
--- OUTSIDE RECORDS SUMMARY | 2024-02-29 08:20 | XMS_ITS | Encounter Summary ---
Author Organization [facility] Address [address] [place] [address] Care Team Providers Care Custom Shop Worker Name Role Phone Tristan Collins MD Primary Care Provider Unav ailable Encounter Details Date Type Department Care Team (Late st Contact Info) Description 08/16/2014 Orders Only [facility] Infectious Disease - [address] [id number] Mando Medina MD [address] [facility], [address] [place] [phone] Social History Tobacco Use Types Packs/Day Years Used Date Smoking Tobacco: Never Smokeless Tobacco: Current Comments:daily for 28 years Alcohol Use Standard Drinks/Week Comments No 0 (1 standard drink = 0.6 oz pur e alcohol) Sex and Gender Information Value Date Recorded Sex Assigned at Not on file Gender Identity Not on file Sexual Orientation Not on file documented as of this encounter Plan of Treatment Not on file documented as of this encounter Procedures Procedure Name Priority Date/Time Associated Diagnosis Comments SED RATE Routine 08/14/2014 15:30 EST COMPLETE BLOOD COUNT AND DIFFERENTIAL Routine 08/14/2014 15:30 EST C REACTIVE PROTEIN Routine 08/14/2014 15 :30 EST HEPATIC FUNCTION PANEL (ALB,ALK PHOS,ALT,AST,DBIL,TOT JOSE M,TOT PROT) Routine 08/14/2014 15:30 EST documented in this encounter Results * (ABNORMAL) SED. RATE:TRAMSCARSUDHA (08/14/2014 15:30 EST) Sed. Rate Alondra, External 16(A) 0 - 15 MM/HR [facility] Blood specimen (specimen) 08/14/2014 15:30 EST Mando Medina MD HEMATOLOGY & PF4 ORDERABLES [facility] * (ABNORMAL) HEMAGRAM AND DIFFERENTIAL (08/14/2014 15:30 EST) WBC, External 9.71 4.4 - 10.8 k/cumm [facility] RBC, External 5.04 4.50 - 6.00 m/cumm [facility] Hemoglobin, External 12.2(A) 13.5 - 17.5 g/dL [facility] HCT, External 38.7(A) 40.0 - 50.0 % [facility] MCV, External 76.8(A) 80 - 95 fL [facility] MCH, External 24.2(A) 27.0 - 33.0 pg [facility] MCHC, External 31.5(A) 32.0 - 36.0 % [facility] PLT, External 392 130 - 400 x1000/uL [facility] RDW-CV, External 16.0(A) 11.8 - 14.1 % [facility] Neutrophils, External 60.8 40 - 74 % [facility] Lymphocytes, External 25.4 19 - 44 % [facility] Monocytes, External 6.7 3.0 - 10.0 % [facility] Eosinophils, External 6.3 1 - 7.0 % [facility] Basophils, External 0.4 0.0 - 2.0 % [facility] ABS Neutrophils, External 5.90 1.2 - 6.7 k/cumm [facility] ABS Lymphs, External 2.47 1.2 - 3.4 k/cumm [facility] ABS Monocytes, External 0.65 0.11 - 0.7 k/cumm [facility] ABS Eosinophils, External 0.61 0 - 0.7 k/cumm [facility] ABS Basophils, External 0.04 0.0 - 0.2 k/cumm [facility] Comment:Please see scan medi a in PRISM for further information Blood specimen (specimen) 08/14/2014 15:30 EST Mando Medina MD PACKAGES & DNA P ROBE ORDERABLES Performing Organization Address [facility] Co de Phone Number [facility] * (ABNORMAL) C-REACTIVE PROTEIN (08/14/2014 15:30 EST) C-Reactive Protein, External 0.38(A) 0.0 - 0.3 mg/dL [facility] Blood specimen (specimen) 08/14/2014 15:30 EST Mando Medina MD CHEMISTRY & BLOO D GAS ORDERABLES Performing Organization Address [facility] Co de Phone Number [facility] * (ABNORMAL) HEPATIC FUNCTION PANEL (ALB,ALK PHOS,ALT,AST,DBIL,TOT JOSE M,TOT PROT) (08/14/2014 15:30 EST) Albumin, External 3.9 3.4 - 5.0 g/dL [facility] Total Protein, External 7.6 6.4 - 8.2 g/dL [facility] Alkaline Phosphatase, External 119(A) 46 - 116 U/L [facility] ALT, External 26 12 - 78 U/L [facility] AST, External 24 15 - 37 U/L [facility] Unconjugated Bilirubin Not given [facility] Conjugated Bilirubin, External 0.08 0.00 - 0.20 mg/dL [facility] Bilirubin, Total, External 0.37 0.2 - 1.0 mg/dL [facility] Blood specimen (specimen) 08/14/2014 15:30 EST Mando Medina MD CHEMISTRY & BLOO D GAS ORDERABLES [facility] documented in this encounter Visit Diagnoses Not on filedocumented in this encounter Care Teams Custom Shop Worker Relationship Specialty Start Date End Date Tristan Collins MD PCP - General 06/26/11 05/12/23 documented as of this encounter
--- OUTSIDE RECORDS SUMMARY | 2024-02-29 08:20 | XMS_ITS | Encounter Summary ---
Author Organization [facility] Address [address] [place] [address] Care Team Providers Care Superintendent Laundry Name Role Phone Tristan Collins MD Primary Care Provider Unav ailable Reason for Visit * Reason Onset Date Comments Results 10/27/2014 Encounter Details Date Type Department Care Team (Late st Contact Info) Description 10/27/2014 Telephone [facility] Infectious Disease - [address] [phone] Mando Medina MD [address] [facility], [address] [place] [phone] Results Social History Tobacco Use Types Packs/Day [...] on file documented as of this encounter Ordered Prescriptions Prescription Sig Dispensed Refills Start Date End Da te ondansetron (ZOFRAN) 4 mg tablet Take 2 Tabs by mouth every 8 hours as needed for Nausea 90 Tab 0 10/27/2014 08/20/2015 documented in this encounter Miscellaneous Notes * Telephone Encounter - Janina Leo RN - 10/27/2014 1229 EDT Reviewed results with Yasmani: negative for C. diff. Patient reports he has been having approximately 5 soft stools per day, not liquid or watery. Patient states he is out of Zofran and has been taking that every 8 hours as he is nauseous all the time. States after he eats he has a 50/50 chance that he will vomit. Reports if he eats anything more than broth or a piece of bread he will vomit. States he has not been losing weight. States he will sometimes go without meals because he does not want to vomit. Dr. Medina notified. Zofran refilled. Dr. Medina to review. Janina Leo, RN * Telephone Encounter - Sonia Bowman - 10/27/[address] Patel's office states that mutual patient Yasmani is asking for results from C-Diff testing. Yasmani would like a call back at [phone]. documented in this encounter Plan of Treatment Not on file documented as of this encounter Visit Diagnoses Not on filedocumented in this encounter Discontinued Medications Medication Sig Discontinue Reason Start Date End Da te ondansetron (ZOFRAN) 4 mg tablet Take 2 Tabs by mouth every 8 hours as needed for Nausea Reorder 09/28/2014 10/27/2014 documented as of this encounter Care Teams Superintendent Laundry Relationship Specialty Start Date End Date Tristan Collins MD PCP - General 06/26/11 05/12/23 documented as of this encounter
--- OUTSIDE RECORDS SUMMARY | 2024-02-29 08:20 | XMS_ITS | Encounter Summary ---
Author Organization [facility] Address [address] [place] [address] Care Team Providers Care Furniture Mover Driver Name Role Phone Tristan Collins MD Primary Care Provider Unav ailable Reason for Visit * Reason Comments Follow-up diarrhea/vomiting: p t says stomach feels unsettled, upset/full of acid Encounter Details Date Type Department Care Team (Late st Contact Info) Description 05/23/2015 8:40 EDT Office Visit [facility] - [facility] [address] [place] [address] Keyshawn Bui MD [address] [place] [address], [address] [place] [address] Dyspepsia (Primary Dx) Social History Tobacco Use Types [...] Sign Reading Time Taken Comments Blood Pressure 132/94 05/23/2015 0852 EDT Pulse 64 05/23/2015 0852 EDT Temperature - - Respiratory Rate - - Oxygen Saturation - - Inhaled Oxygen Concentration - - Weight 105.7 kg (233 lb) 05/23/2015 0852 EDT Height 167.6 cm (5' 6) 05/23/2015 0852 EDT Body Mass Index 37.61 05/23/2015 0852 EDT documented in this encounter Functional Status [...] No 05/23/2015 documented as of this encounter Discharge Diagnoses Diagnosis K30 Functional dyspepsia-K30[ICD-10-CM] documented in this encounter Ordered Prescriptions Prescription Sig Dispensed Refills Start Date End Da te pantoprazole (PROTONIX) 40 mg tablet Take 1 Tab by mouth BEFORE BREAKFAST & DINNER 60 Tab 3 05/23/2015 11/04/2021 documented in this encounter Progress Notes * Keyshawn Bui MD - 05/23/2015 0936 EDT Subjective: Patient ID: Yasmani Glaser is an 45 y.o. male. Chief Complaint Patient presents with ??? Follow-up diarrhea/vomiting: pt says stomach feels unsettled, upset/full of acid HPI Comments: Mr. Glaser returns to the GI office. He has been seen for diarrhea and nausea/vomiting in the setting of complicated back surgery requiring narcotics and a long course of antibiotics. He had an EGD and colonoscopy that were unremarkable. His c. Diff PCR came back positive, however his colonoscopy did not show active colitis. His biopsies showed some mild changes, possibly resolving infection or medication effect. He continues to have nausea and vomiting in the mornings. His diarrhea is improved with imodium. He has abdominal pain and feels like his stomach is full of acid. He is off antibiotics at this point. Patient Active Problem List Diagnosis ??? Back pain Past Medical History Diagnosis Date ??? HTN (hypertension) ??? Sleeping difficulty ??? Back pain 08/11/2014 S/p repeated lumbar surgeries with posterior spinal fusion and multiple revisions complicated by wound infection due to Staph epidermidis. ??? Nonspecific finding on examination of urine ??? Diarrhea ??? Depression ??? Lung disease ??? GERD (gastroesophageal reflux disease) Past Surgical History Procedure Laterality Date ??? Lumbar fusion ??? Other surgical history SI joint infusion x3 ??? Bone incision and drainage x3 ??? Hip surgery ??? Colonoscopy 2015 Family History Problem Relation Age of Onset ??? Diabetes Father ??? Heart Disease Father Social History Substance Use Topics ??? Smoking status: Never Smoker ??? Smokeless tobacco: Former User Comment: daily for 28 years ??? Alcohol Use: No Current Outpatient Prescriptions on File Prior to Visit Medication Sig Dispense Refill ??? chlorthalidone (HYGROTON) 25 mg tablet Take 25 mg by mouth daily. ??? citalopram (CELEXA) 20 mg tablet Take 20 mg by mouth daily. ??? DIAZepam (VALIUM) 5 mg tablet Take 5 mg by mouth every 6 hours as needed for Anxiety. ??? fluticasone-salmeterol (ADVAIR) 250-50 mcg/dose diskus inhaler Inhale 1 Puff as directed 2 times daily. ??? gabapentin (NEURONTIN) 300 mg capsule Take 1 Cap by mouth 3 times daily. Take one tablet at night for 3-5 days, then titrate slowly up to TID dosing as tolerated and/or to effect. 90 Cap 2 ??? ondansetron (ZOFRAN) 4 mg tablet Take 2 Tabs by mouth every 8 hours as needed for Nausea 90 Tab0 ??? oxyCODONE-acetaminophen (PERCOCET) 5-325 mg per tablet Take 1 Tab by mouth every 6 hours. ??? polyethylene glycol (GOLYTELY;NULYTELY) 236-22.74-6.74 -5.86 gram suspension Instructions mailed once procedure scheduled. Questions: [facility]: [phone] or GI Doctor's Office. 4000 mL 0 No current facility-administered medications on file prior to visit. No Known Allergies ROS - See HPI Objective: BP 132/94 mmHg Pulse 64 Ht 167.6 cm (66) Wt 105.688 kg (233 lb) BMI 37.63 kg/m2 Physical Exam Alert and oriented, anxious Sclera anicteric, mucous membranes moist Heart regular rate and rhythm Lungs clear to auscultation bilaterally Abdomen soft and non-tender, no masses, hepatomegally Extremities without rash or edema Assessment: Diarrhea -- I do not think this is c. Diff. His colonoscopy was not consistent with active infection and we now now that PCR may be overly sensitive. I think he has functional diarrhea, with his long-course of antibiotics contributing as well. He should continue imodium and probiotics Nausea and vomiting -- I think this is functional dyspepsia. He EGD was unremarkable. He has a lot of anxiety. He can try taking his Protonix twice a day. Zofran has been helpful in the past, but it has potential interaction with his Celexa. He can discuss alternative to celexa with Dr. Collins Plan: -LFTs -Increase Protonix to twice daily -discuss options for antiemetics with Dr. Collins in the setting of Celexa therapy. Keyshawn Bui MD documented in this encounter Plan of Treatment Not on file documented as of this encounter Results * (ABNORMAL) HEPATIC FUNCTION PANEL (ALB,ALK PHOS,ALT,AST,DBIL,TOT JOSE M,TOT PROT) (05/23/2015 9:51 EDT) Albumin 4.1 3.4 - 4.9 g/dl 05/23/2015 10:49 [facility] Total Protein 7.4 6.3 - 8.2 g/dl 05/23/2015 10:49 [facility] Total Alkaline Phosphatase 85 38 - 126 U/L 05/23/2015 10:49 [facility] ALT 89(H) 21 - 72 U/L 05/23/2015 10:49 [facility] AST 142(H) 15 - 46 U/L 05/23/2015 10:49 [facility] Unconjugated Bilirubin 0.3 0.0 - 1.1 mg/dl 05/23/2015 10:49 [facility] Conjugated Bilirubin 0.0 0.0 - 0.3 mg/dl 05/23/2015 10:49 [facility] Bilirubin, Total 0.9 <1.4 mg/dl 05/23/20 15 10:49 [facility] Blood specimen (specimen) BLOOD SPECIMEN / Unknown 05/23/2015 9:51 EDT 05/23/2015 10:03 EDT Keyshawn Bui MD CHEMISTRY & BLOOD GAS ORDERABLES [facility] [address] [place] [id number] documented in this encounter Visit Diagnoses Diagnosis Dyspepsia- Primary Dyspepsia and other specified disorders of function of stomach documented in this encounter Discontinued Medications Medication Sig Discontinue Reason Start Date End Da te pantoprazole (PROTONIX) 40 mg tablet Take 1 Tab by mouth daily Reorder 04/05/2015 05/23/2015 documented as of this encounter Care Teams Furniture Mover Driver Relationship Specialty Start Date End Date Tristan Collins MD PCP - General 06/26/11 05/12/23 documented as of this encounter
--- OUTSIDE RECORDS SUMMARY | 2024-02-29 08:20 | XMS_ITS | Encounter Summary ---
Author Organization [facility] Address [address] [place] [address] Care Team Providers Care Occupational Medicine Specialist Name Role Phone Tristan Collins MD Primary Care Provider Unav ailable Encounter Details Date Type Department Care Team (Late st Contact Info) Description 08/31/2014 Orders Only [facility] Infectious Disease - [address] [id number] Mando Medina MD [address] [facility], [address] [place] [phone] Social History Tobacco Use Types Packs/Day Years [...] Date/Time Associated Diagnosis Comments SED RATE Routine 08/28/2014 11:45 EST COMPLETE BLOOD COUNT AND DIFFERENTIAL Routine 08/28/2014 11:45 EST C REACTIVE PROTEIN Routine 08/28/2014 11 :45 EST HEPATIC FUNCTION PANEL (ALB,ALK PHOS,ALT,AST,DBIL,TOT JOSE M,TOT PROT) Routine 08/28/2014 11:45 EST documented in this encounter Results * (ABNORMAL) HEPATIC FUNCTION PANEL (ALB,ALK PHOS,ALT,AST,DBIL,TOT JOSE M,TOT PROT) (08/28/2014 11:45 EST) Albumin, External 3.7 3.4 - 5.0 g/dL [facility] Total Protein, External 7.3 6.4 - 8.2 g/dL [facility] Alkaline Phosphatase, External 112 46 - 116 U/L [facility] ALT, External 25 12 - 78 U/L [facility] AST, External 18 15 - 37 U/L [facility] Unconjugated Bilirubin Not given [facility] Conjugated Bilirubin, External <0.05 0.00 - 0.20 mg/dL [facility] Bilirubin, Total, External 0.17(A) 0.2 - 1.0 mg/dL [facility] Blood specimen (specimen) 08/28/2014 11:45 EST Mando Medina MD CHEMISTRY & BLOO D GAS ORDERABLES Performing Organization Address City/[facility]/ZIP Co de Phone Number [facility] * (ABNORMAL) SED. RATE:WESTERGREN (08/28/2014 11:45 EST) Sed. Rate Westergren, External 27(A) 0 - 15 MM/HR [facility] Blood specimen (specimen) 08/28/2014 11:45 EST Mando Medina MD HEMATOLOGY & PF4 ORDERABLES [facility] * (ABNORMAL) HEMAGRAM AND DIFFERENTIAL (08/28/2014 11:45 EST) WBC, External 7.07 4.4 - 10.8 k/cumm [facility] RBC, External 5.02 4.50 - 6.00 m/cumm [facility] Hemoglobin, External 12.2(A) 13.5 - 17.5 g/dL [facility] HCT, External 39.3(A) 40.0 - 50.0 % [facility] MCV, External 78.3(A) 80 - 95 fL [facility] MCH, External 24.3(A) 27.0 - 33.0 pg [facility] MCHC, External 31.0(A) 32.0 - 36.0 % [facility] PLT, External 407(A) 130 - 400 x1000/uL [facility] RDW-CV, External 16.8(A) 11.8 - 14.1 % [facility] Neutrophils, External 66.8 40 - 74 % [facility] Lymphocytes, External 18.2(A) 19 - 44 % [facility] Monocytes, External 6.9 3.0 - 10.0 % [facility] Eosinophils, External 7.1(A) 1 - 7.0 % [facility] Basophils, External 0.4 0.0 - 2.0 % [facility] ABS Neutrophils, External 4.72 1.2 - 6.7 k/cumm [facility] ABS Lymphs, External 1.29 1.2 - 3.4 k/cumm [facility] ABS Monocytes, External 0.49 0.11 - 0.7 k/cumm [facility] ABS Eosinophils, External 0.50 0 - 0.7 k/cumm [facility] ABS Basophils, External 0.03 0.0 - 0.2 k/cumm [facility] Comment:Please see scan medi a in PRISM for further information Blood specimen (specimen) 08/28/2014 11:45 EST Mando Medina MD PACKAGES & BELA RAE ORDERABLES [facility] * (ABNORMAL) C-REACTIVE PROTEIN (08/28/2014 11:45 EST) C-Reactive Protein, External 0.89(A) 0.0 - 0.3 mg/dL [facility] Blood specimen (specimen) 08/28/2014 11:45 EST Mando Medina MD CHEMISTRY & BLOO D GAS ORDERABLES [facility] documented in this encounter Visit Diagnoses Not on filedocumented in this encounter Care Teams Occupational Medicine Specialist Relationship Specialty Start Date End Date Tristan Collins MD PCP - General 06/26/11 05/12/23 documented as of this encounter
--- OUTSIDE RECORDS SUMMARY | 2024-02-29 08:20 | XMS_ITS | Encounter Summary ---
Author Organization [facility] Address [address] [place] [address] Care Team Providers Care Courier Delivery Driver Name Role Phone Verona Agustin MD Primary Care Provider Unav ailable Encounter Details Date Type Department Care Team (Late st Contact Info) Description 04/11/2015 14:01 EDT - 04/11/2015 22:51 EDT Hospital Encounter [facility] Endoscopy - [facility] [address] [place] [address] Debra Nascimento MD [address] [facility], [address] [place] [address] Discharge Disposition: Home or Self Care Social [...] Sign Reading Time Taken Comments Blood Pressure 134/85 04/11/2015 1630 EDT Pulse 80 04/11/2015 1630 EDT Temperature 37.4 ??C (99.3 ??F) 04/11/2015 1430 EDT Respiratory Rate 16 04/11/2015 1630 EDT Oxygen Saturation 100% 04/11/2015 1630 EDT Inhaled Oxygen Concentration - - Weight 108.9 kg (240 lb) 04/11/2015 1428 EDT Height 167.6 cm (5' 6) 04/11/2015 1428 EDT Body Mass Index 38.74 04/11/2015 1428 EDT documented in this encounter Functional Status [...] No 04/05/2015 documented as of this encounter Medications at [...] to effect. 90 Cap 2 09/16/2011 11/30/2020 ondansetron (ZOFRAN) 4 mg tablet Take 2 Tabs by mouth every 8 hours as needed for Nausea 90 Tab 0 10/27/2014 08/20/2015 oxyCODONE-acetaminophe n (PERCOCET) 5-325 mg per tablet Take 1 Tab by mouth every 6 hours. 08/20/2015 pantoprazole (PROTONIX) 40 mg tablet Take 1 Tab by mouth daily 90 Tab 3 04/05/2015 05/23/2015 polyethylene glycol (GOLYTELY;NULYTELY) 236-22.74-6.74 -5.86 gram suspension Instructions mailed once procedure scheduled. Questions: [facility]: [phone] or GI Doctor's Office. 4000 mL 0 04/05/2015 10/31/2021 documented as of this encounter Discharge Disposition Disposition Code Departure Means Destination Home or Self Care documented in this encounter H&P Notes * Debra Nascimento MD - 04/17/2015 1536 EDT Endoscopy Sedation for Procedure History & Physical Date: 04/17/2015 Time: 15:36 Location: [address] Planned Procedure: Colonoscopy, Gastroscopy Chief Complaint/Indications for Procedure: weight loss, diarrhea since june History Previous Complication with Sedation and/or Anesthesia? No Allergies: No Known Allergies Current Medications: No current facility-administered medications for this encounter. Current Outpatient Prescriptions Medication Sig Dispense Refill ??? chlorthalidone (HYGROTON) [...] Tab by mouth every 6 hours. ??? pantoprazole (PROTONIX) 40 mg tablet Take 1 Tab by mouth daily 90 Tab 3 ??? polyethylene glycol (GOLYTELY;NULYTELY) 236-22.74-6.74 -5.86 gram suspension Instructions mailed once procedure scheduled. Questions: [facility]: [phone] or GI Doctor's Office. 4000 mL 0 Past Medical History: Past Medical History Diagnosis Date ??? HTN (hypertension) ??? Sleeping difficulty ??? Back pain 08/11/2014 S/p repeated lumbar surgeries with posterior spinal fusion and multiple revisions complicated by wound infection due to Staph epidermidis. ??? Nonspecific finding on examination of urine ??? Diarrhea ??? Depression ??? Lung disease ??? GERD (gastroesophageal reflux disease) Social History: Past Surgical History Procedure Laterality Date ??? Lumbar fusion ??? Other surgical history SI joint infusion x3 ??? Bone incision and drainage x3 ??? Hip surgery History Substance Use Topics ??? Smoking status: Never Smoker ??? Smokeless tobacco: Former User Comment: daily for 28 years ??? Alcohol Use: No Family History: Family History Problem Relation Age of Onset ??? Diabetes Father ??? Heart Disease Father Review of Systems as pertinent: Physical Exam Vital Signs: BP 134/85 mmHg Pulse 80 Temp(Src) 37.4 ??C (99.3 ??F) (Tympanic) Resp 16 Ht 167.6 cm (66) Wt 108.863 kg (240 lb) BMI 38.76 kg/m2 SpO2 100% Heart Examination: Cardiac Regularity: Regular Respiratory Examination: Respiratory Pattern: Regular Breath Sounds Right: Clear Breath Sounds Left: Clear Abdominal Examination: Soft, non-tender, bowel sounds normal, no masses, no organomegaly Additional physical exam related to the proposed procedure, patient activity, disease state and treatment as pertinent: Assessment Previous complications with sedation or anesthesia?: No Airway Concerns: None Anesthesia Classification: ASA 2 Plan: Proceed with sedation for procedure Fasting Time: Time of last liquid intake: 1000 Date of Last Liquid Intake: 04/11/15 Time of last solid intake: 1800 Date of last solid intake: 04/09/15 Patient Appropriate Candidate for Planned Sedation?: Yes Debra Nascimento MD 04/17/2015 15:36 documented in this encounter Miscellaneous Notes * Anesthesia Post-Kikiromario Jocy Darshana De GuzmanDO - 04/11/2015 1626 EDT Post Anesthesia Evaluation Note Date of Service: 04/11/2015 Antony Glaser, a 45 y.o. year old male has received MAC today. He has been evaluated, assessed and discharged from anesthesia care with stable cardiorespiratory function and alert mental status. The last set of recorded vital signs and pain rating were reviewed: Height: 167.6 cm (66) (04/11/15 1428), Weight : 108.863 kg (240 lb) (04/11/15 1428), BSA (Calculated - sq m): 2.25 sq meters (04/11/15 1428), Temp: 37.4 ??C (99.3 ??F) (04/11/15 1430), BP: 153/96 mmHg (04/11/15 1430), Resp: 16 (04/11/15 1430), SpO2: 96 % (04/11/15 143),Numeric Pain Level (Scale 1-10): 4 Antony Glaser participated in this evaluation unless otherwise noted. His pain, nausea and vomiting have been managed and his body temperature and fluid balance have been restored. Additional monitoring and assessment needs have been addressed. If present, any postoperative events are documented below. Darshana De Guzman DO 04/11/2015 16:26 documented in this encounter Plan of Treatment Not on file documented as of this encounter Procedures Procedure Name Priority Date/Time Associated Diagnosis Comments PROCEDURE REPORTS - SCANNED 04/12/2015 0:35 EDT PROCEDURE REPORTS - SCANNED 04/12/2015 0:35 EDT SURGICAL PATHOLOGY Routine 04/11/2015 8:46 EDT documented in this encounter Results * PROCEDURE REPORTS - SCANNED (04/12/2015 0:35 EDT) 04/12/2015 0:35 EDT Scan 2 Senior Technical Specialist PROCEDURE/MINOR YING GICAL ORDERABLES * PROCEDURE REPORTS - SCANNED (04/12/2015 0:35 EDT) 04/12/2015 0:35 EDT Scan 2 Senior Technical Specialist PROCEDURE/MINOR YING GICAL ORDERABLES * SURGICAL PATHOLOGY (04/11/2015 8:46 EDT) Pathology Report: SURGICAL PATHOLOGY REPORT Reports generated via electronic interface contain original data; however they are lacking the format of the original report. Caution should be taken when reading/interpret ing unformatted reports. Name: ? ANTONY GLASER ? Accession #: ? [id number] ? : ? 1970 (Age: 45) ??M ? Collect Date: ? 04/11/2015 ? Location: ? ENDO ? Receive Date: ? 04/12/2015 ? Provider: DEBRA NASCIMENTO MD Copy to: VERONA AGUSTIN MD ? Final Pathologic Diagnosis: A. COLON, RIGHT, BIOPSY: - ??Colonic mucosa with focal cryptitis, otherwise unremarkable. See comment. ?? B. COLON, LEFT, BIOPSY: - ??Reactive colonic mucosa with no significant abnormality. See comment. ?? C. COLON, SIGMOID, BIOPSY: - ??Reactive colonic mucosa with no significant abnormality. See comment. ?? D. RECTUM, BIOPSY: - ??Reactive colorectal mucosa with no significant abnormality. See comment. ?? Comment: Part A. There is focal neutrophilic inflammation of the crypt epithelium. Otherwise other biopsies are negative for acute inflammation. Parts B-C show reactive hyperplastic epithelial change and mild mucosal hemorrhage. Features are not entirely specific. Parts A-D: Similar findings can be sometime in context of infectious etiologies or medication effect. Clinical correlation is recommended. Dr. Becerra 04/13/2015 5:48 PM Document reviewed and electronically signed by: ROBERTO BECERRA MD Report ??Date: 04/13/2015 19:49 By the signature above, the attending physician certifies that he/she has personally conducted a gross and/or microscopic examination of the described specimens and rendered or confirmed the above diagnosis. Specimen(s) Received: A. ??Right colon B. ??Left colon C. ??Sigmoid colon D. ??Rectum Clinical History: Diarrhea; weight loss Gross Description: A. ?Received in formalin labelled with proper patient identification (initials W, K) and right colon bx are five pink-clarke tissues (0.2 x 0.2 x 0.1 cm to 0.6 x 0.2 x 0.1 cm). Entirely submitted in A1 and A2. B. ?Received in formalin labelled with proper patient identification (initials W, K) and left colon bx are five pink-clarke tissues (0.6 x 0.2 x 0.1 cm to 0.8 x 0.2 x 0.1 cm). Entirely submitted in B1 and B2. C. ?Received in formalin labelled with proper patient identification (initials W, K) and sigmoid colon polyp is a single pink-clarke tissue fragment (0.5 x 0.3 x 0.1 cm). Submitted intact in C1. D. ?Received in formalin labelled with proper patient identification (initials W, K) and rectum bx are two pink-clarke tissues (0.2 x 0.2 x 0.1 cm and 0.6 x 0.2 x 0.1 cm). Entirely submitted in D1. Gabby Bunn 04/12/2015 2:18 PM End of Report [facility] 04/11/2015 8:46 EDT 04/12/2015 8:46 EDT Debra Nascimento MD PATHOLOGY ORDERABL ES [facility] [address] [place] [address] documented in this encounter Visit Diagnoses Not on filedocumented in this encounter Administered Medications Inactive Administered Medications - up to 3 most recent administrations Medication Order MAR Action Action Date Dose Rate Site lactated ringers (LR) infusion 30 mL/hr, intravenous, CONTINUOUS, Starting on 04/11/15 at 1445, Until Patria 04/12/15 at 0051, Routine, Preprocedure New Bag 04/11/2015 14:46 EDT 30 mL/hr 30 mL/hr documented in this encounter Active and Recently Administered Medications Times are shown in EDT. Continuous Medication Order 04/09/2015 04/10/2015 04/11/2015 lactated ringers (LR) infusion (CANCELED) 30 mL/hr, intravenous, CONTINUOUS, Starting on 04/11/15 at 1445, Until Patria 04/12/15 at 0051, Routine, Preprocedure 1446 (New Bag - Prov ider: Shonda Alvarez, INDU)[phone] (Completed - Provider: Germaine Peterson RN) documented in this encounter Orders Medications Ordered That Surendra ht Not Have Been Administered Count Last Ordered Date First Ordered Date atropine 0.1 mg/mL syringe 0.5 mg 1 015 lactated ringers (LR) infusion 2 04/11/2015 meperidine (PF) (DEMEROL) 10 0 mg/mL injection 25-200 mg 2 04/11/2015 midazolam (PF) (VERSED) 1 mg /mL injection 1-10 mg 2 04/11/2015 nalOXone (NARCAN) injection 0.2 mg 1 2014 sodium chloride 0.9 % (NS) infusion 2 04/11 Discharge Count Last Ordered Date First Orde red Date DISCHARGE PATIENT 1 04/11/2015 documented in this encounter Care Teams Courier Delivery Driver Relationship Specialty Start Date End Date Verona Agustin MD PCP - General 06/26/11 05/12/23 documented as of this encounter
--- OUTSIDE RECORDS SUMMARY | 2024-02-29 08:20 | XMS_ITS | Encounter Summary ---
Author Organization [facility] Address [address] [place] [address] Care Team Providers Care Optical Advisor Name Role Phone Tristan Collins MD Primary Care Provider Unav ailable Reason for Visit * Reason Onset Date Comments Nausea 10/27/2014 Encounter Details Date Type Department Care Team (Late st Contact Info) Description 10/27/2014 Telephone [facility] Infectious Disease - [facility] [address] [place], [place] [phone] Janina Leo RN Nausea Social History Tobacco Use Types Packs/Day Years Used Date Smoking Tobacco: Never Smokeless Tobacco: Current Comments:daily for 28 years Alcohol Use Standard Drinks/Week Comments No 0 (1 standard drink = 0.6 oz pur e alcohol) Sex and Gender Information Value Date Recorded Sex Assigned at Not on file Gender Identity Not on file Sexual Orientation Not on file documented as of this encounter Miscellaneous Notes * Telephone Encounter - Janina Leo RN - 10/27/[address] Medina, unlikely the significant nausea and vomiting patient has been experiencing is due to Keflex alone. At this point, Keflex is the best option for the patient with his infection. Patientshould review other medications and potential causes for the nausea and vomiting with his PCP. Reviewed this with patient. Per patient, he has been planning on doing this anyway and will contact PCP.Patient aware to call if anything changes. Janina Leo RN documented in this encounter Plan of Treatment Not on file documented as of this encounter Visit Diagnoses Not on filedocumented in this encounter Care Teams Optical Advisor Relationship Specialty Start Date End Date Tristan Collins MD PCP - General 06/26/11 05/12/23 documented as of this encounter
--- OUTSIDE RECORDS SUMMARY | 2024-02-29 08:20 | XMS_ITS | Encounter Summary ---
Author Organization [facility] Address [address] [place] [address] Care Team Providers Care Emergency Department Clinician Name Role Phone Tristan Collins MD Primary Care Provider Unav ailable Encounter Details Date Type Department Care Team (Late st Contact Info) Description 04/05/2015 10:44 EDT - 04/05/2015 23:59 EDT Hospital Encounter [facility] [address] [place] [address] Unknown, Provider, Keyshawn Bui MD [address] [place] [address], [address] [place] [phone] Discharge Disposition: Auto Discharge Social History Tobacco Use Types Packs/Day Years [...] No 04/05/2015 documented as of this encounter Discharge Diagnoses Diagnosis 787.91 DIARRHEA NOS[ICD-9-CM] documented in this encounter Medications at Time [...] suspension Instructions mailed once procedure scheduled. Questions: [facility] Gastroenterology: [phone] or GI Doctor's Office. 4000 mL 0 04/05/2015 10/31/2021 documented as of this encounter Discharge Disposition Disposition Code Departure Means Destination Auto Discharge Home documented in this encounter Plan of Treatment Not on file documented as of this encounter Procedures Procedure Name Priority Date/Time Associated Diagnosis Comments COMPLETE BLOOD COUNT AND DIFFERENTIAL Routine 04/05/2015 11:07 EDT C REACTIVE PROTEIN Routine 04/05/2015 11 :07 EDT BUN Routine 04/05/2015 11:07 EDT CREATININE Routine 04/05/2015 11:07 EDT documented in this encounter Results * (ABNORMAL) C REACTIVE PROTEIN (04/05/2015 11:07 EDT) C Reactive Protein 31.5(H) <10.0 mg/L 04/05/2015 12:14 EDT [facility] Comment: Note units change to mg/L. Values will be 10 fold higher than with previous units of mg/dl. BLOOD SPECIMEN / Unknown 04/05/2015 11:07 EDT 04/05/2015 11:45 EDT Mando Medina MD CHEMISTRY & BLOO D GAS ORDERABLES Performing Organization Address [facility] Co de Phone Number [facility] [address] [place] [address] * (ABNORMAL) CREATININE (04/05/2015 11:07 EDT) Pathologist [facility] Creatinine 0.58(L) 0.66 - 1.25 mg/dl 04/05/2015 12:14 EDT [facility] GFR, Calculated 121 >60 ml/min/1.7 3m2 04/05/2015 12:14 EDT [facility] Comment: eGFR calculated using CKD-EPI equation for non Americans. Multiply eGFR by 1.16 for Americans. BLOOD SPECIMEN / Unknown 04/05/2015 11:07 EDT 04/05/2015 11:45 EDT Mando Medina MD CHEMISTRY & BLOO D GAS ORDERABLES Performing Organization Address City/[facility] Co de Phone Number [facility] [address] [place] [address] * (ABNORMAL) HEMAGRAM AND DIFFERENTIAL (04/05/2015 11:07 EDT) WBC 7.07 4.0 - 10.4 K/cmm 04/05/2015 12:15 EDT [facility] RBC 4.99 4.36 - 5.78 M/cmm 04/05/2015 12:15 [facility] Hemoglobin 14.3 13.8 - 17.3 gm/dl 04/05/2015 12:15 [facility] HCT 44.3 39.5 - 50.2 % 04/05/2015 12:15 [facility] MCV 89 81 - 95 fl 04/05/2015 12:15 [facility] MCH 28.7 27.6 - 33.0 pg 04/05/2015 12:15 [facility] MCHC 32.3(L) 32.8 - 36.4 gm/dl 04/05/2015 12:15 [facility] RDW-CV 16.4(H) 11.8 - 14.1 % 04/05/2015 12:15 [facility] RDW-SD 50.3(H) 36.5 - 45.9 fl 04/05/2015 12:15 [facility] PLT 270 141 - 320 K/[facility] 04/05/2015 12:15 [facility] MPV 8.7 7.5 - 11.2 fl 04/05/2015 12:15 [facility] % Neutrophils 72.1 45.5 - 79.7 % 04/05/2015 12:15 [facility] % Lymphocytes 17.5 15.0 - 46.8 % 04/05/2015 12:15 [facility] % Monocytes 7.1 1.8 - 12.0 % 04/05/2015 12:15 [facility] % Eosinophils 2.5 0.6 - 6.9 % 04/05/2015 12:15 [facility] % Basophils 0.8 0.2 - 1.4 % 04/05/2015 12:15 [facility] ABS Neutrophils 5.09 2.20 - 8.85 K/cm 04/05/2015 12:15 [facility] ABS Lymphs 1.24 1.09 - 3.30 K/cm 04/05/2015 12:15 [facility] ABS Monocytes 0.50 0.1 - 0.8 K/cmm 04/05/2015 12:15 EDT [facility] ABS Eosinophils 0.18 0.03 - 0.61 K/cmm 04/05/2015 12:15 EDT [facility] ABS Basophils 0.06 0.01 - 0.11 K/cmm 04/05/2015 12:15 EDT [facility] Type of Diff: Automated 04/05/2015 12:15 EDT [facility] BLOOD SPECIMEN / Unknown 04/05/2015 11:07 EDT 04/05/2015 11:45 EDT Mando Medina MD PACKAGES & DNA P ROBE ORDERABLES Performing Organization Address City/[facility]/ZIP Co de Phone Number [facility] [address] [place] [address] * (ABNORMAL) BUN (04/05/2015 11:07 EDT) BUN 9(L) 10 - 26 mg/dl 04/05/2015 12:14 EDT [facility] BLOOD SPECIMEN / Unknown 04/05/2015 11:07 EDT 04/05/2015 11:45 EDT Mando Medina MD CHEMISTRY & BLOO D GAS ORDERABLES Performing Organization Address City/[facility] Co de Phone Number [facility] [address] [place] [address] documented in this encounter Visit Diagnoses Not on filedocumented in this encounter Care Teams Emergency Department Clinician Relationship Specialty Start Date End Date Tristan Collins MD PCP - General 06/26/11 05/12/23 documented as of this encounter
--- OUTSIDE RECORDS SUMMARY | 2024-02-29 08:20 | XMS_ITS | Encounter Summary ---
Author Organization [facility] Address [address] [place] [address] Care Team Providers Care Dry Roaster Name Role Phone Tristan Collins MD Primary Care Provider Unav ailable Encounter Details Date Type Department Care Team (Late st Contact Info) Description 06/29/2015 Results Only [facility] Gastroenterology - [facility] [address] [place], [place] [id number] Yaniv Herbert MD PhD [address] [facility], [address] [place] [address] Social History Tobacco Use Types Packs/Day Years [...] Procedure Name Priority Date/Time Associated Diagnosis Comments SMOOTH MUSCLE TITER Routine 06/29/2015 1 0:50 EST MULTIPLE DOC ORDERS Routine 06/29/2015 1 0:50 EST DIFFERENTIAL Routine 06/29/2015 10:50 EST ACTIN IGG AB LEXII Routine 06/29/2015 10 :50 EST BILIRUBIN DIRECT/INDIRECT Routine 06/29/2015 10:50 EST C REACTIVE PROTEIN Routine 06/29/2015 10 :50 EST ANTI NUCLEAR AB (GANESH), IFA Routine 06/29/2015 10:50 EST documented in this encounter Results * (ABNORMAL) SMOOTH MUSCLE TITER (06/29/2015 10:50 EST) Smooth Muscle Titer 40(H) <20 Dils 07/03/2015 13:26 EST [facility] BLOOD SPECIMEN / Unknown 06/29/2015 10:50 EST 06/29/2015 11:24 EST Yaniv Herbert MD PhD IMMUNOLOGY AND SEROLOGY ORDERABLES Performing Organization Address City/[facility]/ZIP Co de Phone Number [facility] [address] [place] [address] * SMOOTH MUSCLE ANTIBODY (06/29/2015 10:50 EST) Smooth Muscle Ab Positive at 20 dils, titer to follow <20 Dils 07/03/2015 13:25 EST [facility] BLOOD SPECIMEN / Unknown 06/29/2015 10:50 EST 06/29/2015 11:24 EST Yaniv Herbert MD PhD IMMUNOLOGY AND SEROLOGY ORDERABLES Performing Organization Address City/[facility] Co de Phone Number [facility] [address] [place] [address] * ANTI NUCLEAR ANTIBODY (06/29/2015 10:50 EST) Anti Nuclear Ab <40 0 - 40 Dils 07/02/2015 16:11 [facility] BLOOD SPECIMEN / Unknown 06/29/2015 10:50 EST 06/29/2015 11:24 EST Yaniv Herbert MD PhD IMMUNOLOGY AND SEROLOGY ORDERABLES Performing Organization Address [facility] Co de Phone Number [facility] [address] [place] [address] * BILIRUBIN DIRECT/INDIRECT (06/29/2015 10:50 EST) Conjugated Bilirubin 0.0 0.0 - 0.3 mg/dl 06/29/2015 12:52 [facility] Unconjugated Bilirubin 0.6 0.0 - 1.1 mg/dl 06/29/2015 12:52 [facility] BLOOD SPECIMEN / Unknown 06/29/2015 10:50 EST 06/29/2015 11:24 EST Yaniv Herbert MD PhD CHEMISTRY & BLO OD GAS ORDERABLES Performing Organization Address City/[facility] Co de Phone Number [facility] [address] [place] [address] * (ABNORMAL) DIFFERENTIAL (06/29/2015 10:50 EST) % Neutrophils 84.7(H) 45.5 - 79.7 % 06/29/2015 11:33 [facility] % Lymphocytes 8.5(L) 15.0 - 46.8 % 06/29/2015 11:33 [facility] % Monocytes 5.4 1.8 - 12.0 % 06/29/2015 11:33 [facility] % Eosinophils 0.8 0.6 - 6.9 % 06/29/2015 11:33 [facility] % Basophils 0.6 0.2 - 1.4 % 06/29/2015 11:33 [facility] ABS Neutrophils 7.79 2.20 - 8.85 K/cmm 06/29/2015 11:33 [facility] ABS Lymphs 0.78(L) 1.09 - 3.30 K/cmm 06/29/2015 11:33 [facility] ABS Monocytes 0.50 0.1 - 0.8 K/cmm 06/29/2015 11:33 [facility] ABS Eosinophils 0.08 0.03 - 0.61 K/cmm 06/29/2015 11:33 [facility] ABS Basophils 0.05 0.01 - 0.11 K/cm 06/29/2015 11:33 [facility] Type of Diff: Automated 06/29/2015 11:33 [facility] BLOOD SPECIMEN / Unknown 06/29/2015 10:50 EST 06/29/2015 11:24 EST Yaniv Herbert MD PhD HEMATOLOGY & PF 4 ORDERABLES Performing Organization Address [facility] de Phone Number [facility] [address] [place] [address] * (ABNORMAL) C REACTIVE PROTEIN (06/29/2015 10:50 EST) Pathologist [facility] C Reactive Protein 48.0(H) <10.0 mg/L 06/29/2015 12:13 [facility] Comment: Note units change to mg/L. Values will be 10 fold higher than with previous units of mg/dl. BLOOD SPECIMEN / Unknown 06/29/2015 10:50 EST 06/29/2015 11:24 EST Yaniv Herbert MD PhD CHEMISTRY & BLO OD GAS ORDERABLES Performing Organization Address [facility] Co de Phone Number [facility] [address] [place] [address] * MULTIPLE DOC ORDERS (06/29/2015 10:50 EST) Pathologist [facility] Multiple Doc Orders This report contains lab results ordered 06/29/2015 10:51 [facility] Comment: by another provider which were collected and processed simultaneously with the orders you requested. If you have any questions, please call Customer Service at [phone]. TOPOGRAPHY UNKNOWN / Unknown 06/29/2015 10:50 EST 06/29/2015 11:24 EST Yaniv Herbert MD PhD CHEMISTRY & BLO OD GAS ORDERABLES [facility] [address] [place] [address] documented in this encounter Visit Diagnoses Not on filedocumented in this encounter Care Teams Dry Roaster Relationship Specialty Start Date End Date Tristan Collins MD PCP - General 06/26/11 05/12/23 documented as of this encounter
--- OUTSIDE RECORDS SUMMARY | 2024-02-29 08:20 | XMS_ITS | Encounter Summary ---
Author Organization [facility] Address [address] [place] [address] Care Team Providers Care Technical Business Analyst Name Role Phone Tristan Collins MD Primary Care Provider Unav ailable Encounter Details Date Type Department Care Team (Late st Contact Info) Description 06/29/2015 Phlebotomy Only [facility] [address] [place] [address] Soap Slabber, Outpatient Osteomyelitis ([facility]) ([facility]); LFTs abnormal Social History Tobacco Use Types Packs/Day Years [...] PCR Routine 06/29/2015 10:50 EST LFTs abnormal IBC Routine 06/29/2015 10:50 EST LFTs abnormal HEPATITIS A TOTAL ANTIBODY W REFLEX Routine 06/29/2015 10:50 EST LFTs abnormal TISSUE TRANSGLUTAMINASE ANTIBODY, IGA Routine 06/29/2015 10:50 EST LFTs abnormal HEPATITIS B SURFACE ANTIGEN Routine 06/29/2015 10:50 EST LFTs abnormal COMPLETE BLOOD COUNT Routine 06/29/2015 10:50 EST LFTs abnormal IMMUNOGLOBULINS Routine 06/29/2015 10:50 EST LFTs abnormal IRON Routine 06/29/2015 10:50 EST LFTs abnormal FERRITIN Routine 06/29/2015 10:50 EST LFTs abnormal COMPREHENSIVE METABOLIC PANEL (CMP) Routine 06/29/2015 10:50 EST LFTs abnormal documented in this encounter Results * HEPATITIS C ANTIBODY WITH REFLEX TO HCV RNA BY PCR (06/29/2015 10:50 EST) Hepatitis C Ab Negative 06/29/2015 13:44 EST [facility] Comment:Reference Range: Neg ative Blood specimen (specimen) BLOOD SPECIMEN / Unknown 06/29/2015 10:50 EST 06/29/2015 11:24 EST Yaniv Herbert MD PhD CHEMISTRY & BLO OD GAS ORDERABLES [facility] [address] [place] [address] * HEPATITIS A TOTAL ANTIBODY (06/29/2015 10:50 EST) Hep A Antibody Negative 06/29/2015 13:44 EST [facility] Comment:Reference Range: Neg ative Blood specimen (specimen) BLOOD SPECIMEN / Unknown 06/29/2015 10:50 EST 06/29/2015 11:24 EST Yaniv Herbert MD PhD CHEMISTRY & BLO OD GAS ORDERABLES Performing Organization Address [facility] de Phone Number [facility] [address] [place] [address] * HEPATITIS B SURFACE ANTIGEN (06/29/2015 10:50 EST) Hepatitis B Surface Ag Negative 06/29/2015 13:44 EST [facility] Comment:Reference Range: Neg ative Blood specimen (specimen) BLOOD SPECIMEN / Unknown 06/29/2015 10:50 EST 06/29/2015 11:24 EST Yaniv Herbert MD PhD CHEMISTRY & BLO OD GAS ORDERABLES Performing Organization Address [facility] de Phone Number [facility] [address] [place] [address] * TISSUE TRANSGLUTAMINASE AB (06/29/2015 10:50 EST) Pathologist [facility] Tissue Transglut Ab <1.2 <4 U/mL 07/02/2015 10:56 EST [facility] Comment: The following results were obtained with the [employer] QUANTA Lite R h-tTG IgA LEXII assay on the [employer] DSX. A negative result may be due to IgA deficiency and does not rule out celiac disease. Blood specimen (specimen) BLOOD SPECIMEN / Unknown 06/29/2015 10:50 EST 06/29/2015 11:24 EST Yaniv Herbert MD PhD IMMUNOLOGY AND SEROLOGY ORDERABLES Performing Organization Address [facility] de Phone Number [facility] [address] [place] [address] * (ABNORMAL) IMMUNOGLOBULINS (06/29/2015 10:50 EST) IgG 1,900(H) 751 - 1,560 mg/dl 06/29/2015 15:19 EST [facility] IgA 472(H) 82 - 453 mg/dl 06/29/2015 15:19 EST [facility] IgM 122 46 - 304 mg/dl 06/29/2015 15:19 EST [facility] Blood specimen (specimen) BLOOD SPECIMEN / Unknown 06/29/2015 10:50 EST 06/29/2015 11:24 EST Yaniv Herbert MD PhD CHEMISTRY & BLO OD GAS ORDERABLES Performing Organization Address [facility] de Phone Number [facility] [address] [place] [address] * IBC (06/29/2015 10:50 EST) TIBC 322 261 - 462 ug/dl 06/29/2015 12:33 EST [facility] Blood specimen (specimen) BLOOD SPECIMEN / Unknown 06/29/2015 10:50 EST 06/29/2015 11:24 EST Yaniv Herbert MD PhD CHEMISTRY & BLO OD GAS ORDERABLES Performing Organization Address [facility] Phone Number [facility] [address] [place] [address] * IRON (06/29/2015 10:50 EST) Iron 120 49 - 181 ug/dl 06/29/2015 12:33 EST [facility] Blood specimen (specimen) BLOOD SPECIMEN / Unknown 06/29/2015 10:50 EST 06/29/2015 11:24 EST Yaniv Herbert MD PhD CHEMISTRY & BLO OD GAS ORDERABLES Performing Organization Address [facility] de Phone Number [facility] [address] [place] [address] * (ABNORMAL) FERRITIN (06/29/2015 10:50 EST) Ferritin 361(H) 22 - 322 ng/ml 06/29/2015 12:33 EST [facility] Blood specimen (specimen) BLOOD SPECIMEN / Unknown 06/29/2015 10:50 EST 06/29/2015 11:24 EST Yaniv Herbert MD PhD CHEMISTRY & BLO OD GAS ORDERABLES Performing Organization Address City/[facility]/ZIP Co de Phone Number [facility] [address] [place] [address] * (ABNORMAL) HEMAGRAM (06/29/2015 10:50 EST) WBC 9.20 4.0 - 10.4 K/cmm 06/29/2015 11:33 [facility] RBC 4.82 4.36 - 5.78 M/cmm 06/29/2015 11:33 [facility] Hemoglobin 14.3 13.8 - 17.3 gm/dl 06/29/2015 11:33 [facility] HCT 43.5 39.5 - 50.2 % 06/29/2015 11:33 [facility] MCV 90 81 - 95 fl 06/29/2015 11:33 [facility] MCH 29.8 27.6 - 33.0 pg 06/29/2015 11:33 [facility] MCHC 33.0 32.8 - 36.4 gm/dl 06/29/2015 11:33 [facility] RDW-CV 15.8(H) 11.8 - 14.1 % 06/29/2015 11:33 [facility] RDW-SD 49.4(H) 36.5 - 45.9 fl 06/29/2015 11:33 [facility] PLT 266 141 - 320 K/cmm 06/29/2015 11:33 [facility] MPV 8.4 7.5 - 11.2 fl 06/29/2015 11:33 [facility] Blood specimen (specimen) BLOOD SPECIMEN / Unknown 06/29/2015 10:50 EST 06/29/2015 11:24 EST Yaniv Herbert MD PhD HEMATOLOGY & PF 4 ORDERABLES Performing Organization Address City/[facility]/ZIP Co de Phone Number [facility] [address] [place] [address] * (ABNORMAL) COMPREHENSIVE METABOLIC PANEL (CMP) (06/29/2015 10:50 EST) Potassium 4.2 3.5 - 5.0 mEq/L 06/29/2015 12:13 [facility] Sodium 139 136 - 145 mEq/L 06/29/2015 12:13 [facility] Chloride 100 96 - 110 mEq/L 06/29/2015 12:13 [facility] CO2 21(L) 24 - 32 mEq/L 06/29/2015 12:13 [facility] Total Alkaline Phosphatase 94 38 - 126 U/L 06/29/2015 12:13 [facility] Bilirubin, Total 1.4(H) <1.4 mg/dl 06/29/20 15 12:13 [facility] AST 126(H) 15 - 46 U/L 06/29/2015 12:13 [facility] ALT 60 21 - 72 U/L 06/29/2015 12:13 [facility] Albumin 4.2 3.4 - 4.9 g/dl 06/29/2015 12:13 [facility] Total Protein 8.1 6.3 - 8.2 g/dl 06/29/2015 12:13 [facility] Creatinine 0.62(L) 0.66 - 1.25 mg/dl 06/29/2015 12:13 [facility] GFR, Calculated 118 >60 ml/min/1.7 3m2 06/29/2015 12:13 [facility] Comment: eGFR calculated using CKD-EPI equation for non Americans. Multiply eGFR by 1.16 for Americans. BUN 6(L) 10 - 26 mg/dl 06/29/2015 12:13 [facility] Calcium 9.2 8.5 - 10.5 mg/dl 06/29/2015 12:13 [facility] Calculated Calcium 9.4 8.5 - 10.5 mg/dl 06/29/2015 12:13 [facility] Glucose, Serum 89 70 - 100 mg/dl 06/29/2015 12:13 [facility] Fasting? YES 06/29/2015 10:51 [facility] Blood specimen (specimen) BLOOD SPECIMEN / Unknown 06/29/2015 10:50 EST 06/29/2015 11:24 EST Yaniv Herbert MD PhD CHEMISTRY & BLO OD GAS ORDERABLES [facility] [address] [place] [address] documented in this encounter Visit Diagnoses Diagnosis Osteomyelitis ([facility]) Unspecified osteomyelitis, site unspecified LFTs abnormal Other abnormal blood chemistry documented in this encounter Orders Lab Orders Without Results Count Last Ordered D ate First Ordered Date BUN 1 06/29/2015 C-REACTIVE PROTEIN 1 06/29/2015 CREATININE 1 06/29/2015 HEMAGRAM AND DIFFERENTIAL 1 06/29/2015 documented in this encounter Care Teams Technical Business Analyst Relationship Specialty Start Date End Date Tristan Collins MD PCP - General 06/26/11 05/12/23 documented as of this encounter
--- OUTSIDE RECORDS SUMMARY | 2024-02-29 08:20 | XMS_ITS | Encounter Summary ---
Author Organization [facility] Address [address] [place] [address] Care Team Providers Care Paper Making Machine Operator Name Role Phone Tristan Collins MD Primary Care Provider Unav ailable Reason for Visit * Consult, Test and Treat (Routine) - Specialty Report Received Specialty Diagnoses / Procedures Referred By Contact Referred To Contact Gastroenterology and Hepatology Diagnoses Diarrhea Procedures COLONOSCOPY Keyshawn Bui MD [address] [place] [phone] Referral ID Status Reason Start Date Expiration Date V isits Requested Visits Authorized [id number] Specialty Report Received 04/05/2015 1 1 Encounter Details Date Type Department Care Team (Late st Contact Info) Description 04/11/2015 15:30 EDT - 04/11/2015 23:59 EDT Hospital Encounter [facility] Endoscopy - [address] [id number] Keyshawn Bui MD [address] [place] [phone] Generalized abdominal pain Discharge Disposition: Home or Self Care Social [...] Puff as directed 2 times daily. 11/30/19 22 gabapentin (NEURONTIN) 300 mg capsule Take 1 [...] suspension Instructions mailed once procedure scheduled. Questions: [facility] Gastroenterology: [phone] or GI Doctor's Office. 4000 mL 0 04/05/2015 10/31/2021 documented as of this encounter Discharge Disposition Disposition Code Departure Means Destination Home or Self [facility] documented in this encounter Plan of Treatment Not on file documented as of this encounter Procedures Procedure Name Priority Date/Time Associated Diagnosis Comments COLONOSCOPY PROCEDURE Routine 04/11/2015 Diarrhea documented in this encounter Visit Diagnoses Diagnosis Generalized abdominal pain Abdominal pain, generalized documented in this encounter Orders Imaging Orders Without Results Count Last Order ed Date First Ordered Date UPPER ENDOSCOPY 1 04/12/2015 documented in this encounter Care Teams Paper Making Machine Operator Relationship Specialty Start Date End Date Tristan Collins MD PCP - General 06/26/11 05/12/23 documented as of this encounter
--- OUTSIDE RECORDS SUMMARY | 2024-02-29 08:20 | XMS_ITS | Encounter Summary ---
Author Organization [facility] Address [address] [place] [address] Care Team Providers Care Lapel Stitcher Name Role Phone Verona Collins MD Primary Care Provider Unav ailable Encounter Details Date Type Department Care Team (Late st Contact Info) Description 08/20/2015 11:04 EST - 08/20/2015 16:25 EST Hospital Encounter [facility] [address] [place] [address] Yaniv Chanel MD PhD [address] [facility], [facility] [address] [place] [address] Discharge Disposition: Home or Self [...] Sign Reading Time Taken Comments Blood Pressure 173/99 08/20/2015 1500 EST Pulse - - Temperature 36.7 ??C (98.1 ??F) 08/20/2015 1434 EST Respiratory Rate 18 08/20/2015 1425 EST Oxygen Saturation 98% 08/20/2015 1500 EST Inhaled Oxygen Concentration - - Weight 100.7 kg (222 lb) 08/20/2015 1206 EST Height 167.6 cm (5' 6) 08/20/2015 1206 EST Body Mass Index 35.83 08/20/2015 1206 EST documented in this encounter Functional Status [...] 05/23/2015 documented as of this encounter Discharge Instructions * Discharge Instructions* Pauline Mishra, RN - 08/20/2015 13:23 EST RADIOLOGY PATIENT EDUCATION INSTRUCTIONS FOLLOWING LIVER BIOPSY PROCEDURE Procedure Site - right neck Physician Performing Procedure - Logan Torres MD ?? Return home and rest quietly for the remainder of the day. ?? DO NOT drive or make legal decisions today as you may have received sedation medication for yourprocedure. ?? Have a responsible adult drive you and remain with you the rest of the day if possible. Depending on the time of your procedure, your activity will be restricted thus making it difficult to prepare meals etc. You may have also received medication that makes you groggy or sleepy. ?? You may resume your normal diet after the procedure. Avoid alcoholic beverages and depressant drugs for 24 hours. ?? DO NOT take aspirin-containing products, ibuprofen, vitamin E, or blood thinning products for 24hours after the procedure. You may take Tylenol (1-2 tablets every 4-6 hours) for mild discomfort. Call the Radiology Department for pain, unrelieved by Tylenol for the first 24 hours following your procedure. ?? Call your physician immediately or go to the nearest Emergency Room if you develop any of the following - Rapid Heart Rate or Pulse Upper back or chest pain Sudden onset of anxiety Skin color change Saturation or the Band-Aid or dressing Shortness of Breath Sweating Feeling Faint Bloody Stool ?? If you have had a Liver Biopsy it is NOT uncommon to experience right shoulder pain for 1-2 days. ?? Check the dressing or Band-Aid throughout the day for any increase in drainage. Keep the Band-Aid or dressing dry for 24 hours. Replace the Band-Aid if necessary. If you notice brisk bleeding, apply pressure for 10 minutes and slowly release the pressure to see if the bleeding has stopped. If the bleeding does not stop, go to your Physician or the nearest Emergency Room. ?? The results of your procedure will go to the Physician who ordered the procedure. It may take 2-5 days for procedure results to come back. ?? IF YOU HAVE ANY QUESTIONS OR CONCERNS REGARDING THE PROCEDURE, PLEASE CALL THE [facility] AT . SOMEONE IS AVAILABLE TO TAKE YOUR CALL 24 HOURS A DAY. documented in this encounter Medications at Time [...] suspension Instructions mailed once procedure scheduled. Questions: [facility]: [phone] or GI Doctor's Office. 4000 mL 0 04/05/2015 10/31/2021 documented as of this encounter Discharge Disposition Disposition Code Departure Means Destination Home or Self Care documented in this encounter Progress Notes * Gabriella John RN - 08/20/2015 1507 EST 1445 Report from Stephanie Betancourt. Pt settled in room pt denies pain. Pt has already eaten. Pt voided in urinal. Call hernandez in reach. Pt's ride [place] has been called. 1520 Pt given more to eat - sandwich and drink.. 1540 AVS at the bedside for pt to read. 1600 Pt signed his AVS. Pt given a copy and signed copy is in the chart. Pt is in a WC waiting for transport. 1615 Pt getting dressed and IV pulled * Meggan Betancourt RN - 08/20/2015 1245 EST Antony Weiner arrived to CVU ambulatory. Patient alert and oriented x3. Bed in lowest position with call hernandez within reach. Unit orientation and explanation of IV and procedure completed with patient. Patient demonstrates willingness and understanding of pre-procedure education. * Pauline Mishra, RN - 08/20/2015 1222 EST Patient arrived from cvu to room 22 at 1330 for a TJ liver biopsy. I have reviewed Labs, MAR, Pt history. ID'd by name, and viewed name bracelet. Assessed IV. As the nurse in the room I explainedgoals of procedure and sedation relating to nursing goals. Pt states all there questions have been answered. No learning barriers disclosed. I have reviewed the consent for the procedure. Pt positioned Supine on the table. Gel pads under elbows, Safety straps in place. VS assessed. Administration of conscious sedation began at 1335 . Sterile prep of right neck with chloroprep in the usual sterilefashion. Mejía moment at start of procedure 1345 between adj and jba. At start of the procedure the patient is awake / responds to soft verbal stimuli. Versed and fentanyl IV given for patient comfort. TJ liver biopsy with pressure completed successfully. Core liver samples sent to lab. Pressure applied over right neck puncture site with thrombix patch and drsg applied. Patient back to CVU in stable condition. Defer to Physicians note for procedure outcomes Medications administered during the procedure, over 45 minutes of time in titrated, divided doses, Versed 9.5 Mg Fentanyl 250 Mcg IV and 50 mg Benadryl IV Pt tolerated procedure well. Discharge instructions placed in prism. * Princess Maynard RN - 08/17/2015 1051 EST Pre-procedure call made to Antony Weiner, spoke with pt to give pre- procedure instructions. Pt instructed to check in at 3rd floor registration at 11:45am for procedure Thursday. Nothing to eat or drink after 5am Thursday morning, may have clear liquids up until 9am. Pt is not diabetic, is not onaspirin or any other blood thinners and does not use a C-pap. Pt informed that they should not takeany motrin, ibuprofen or aleve. May take remaining morning medications with a sip of water. Bring updated medication list. Leave all valuables and medications at home. Shower the night before or morning of the procedure. Instructed to bring a catering driver. Pt verbalizes understanding of instructions and d enies any questions or concerns at this time. documented in this encounter H&P Notes * Tad Alberto MD - 08/20/2015 1210 EST Sedation for Procedure History & Physical Date: 08/20/2015 Time: 12:10 Location: IR Planned Procedure: Transjugular liver biopsy Chief Complaint/Indications for Procedure: abnormal LFT's History: abd pain, abn lft's, suspected steatosis Previous Complication with Sedation and/or Anesthesia? No Allergies: No Known Allergies Current Medications: Prescriptions prior to admission Medication Sig Dispense Refill Last Dose ??? chlorthalidone (HYGROTON) 25 mg tablet Take 25 mg by mouth daily. Taking ??? citalopram (CELEXA) 20 mg tablet Take 20 mg by mouth daily. Taking ??? DIAZepam (VALIUM) 5 mg tablet Take 5 mg by mouth every 6 hours as needed for Anxiety. Taking ??? fluticasone-salmeterol (ADVAIR) 250-50 mcg/dose diskus inhaler Inhale 1 Puff as directed 2 times daily. Taking ??? gabapentin (NEURONTIN) 300 mg capsule Take 1 Cap by mouth 3 times daily. Take one tablet at night for 3-5 days, then titrate slowly up to TID dosing as tolerated and/or to effect. 90 Cap 2 Taking ??? ondansetron (ZOFRAN) 4 mg tablet Take 2 Tabs by mouth every 8 hours as needed for Nausea 90 Tab0 Not Taking ??? oxyCODONE-acetaminophen (PERCOCET) 5-325 mg per tablet Take 1 Tab by mouth every 6 hours. Taking ? ? pantoprazole (PROTONIX) 40 mg tablet Take 1 Tab by mouth BEFORE BREAKFAST & DINNER 60 Tab 3Taking ??? polyethylene glycol (GOLYTELY;NULYTELY) 236-22.74-6.74 -5.86 gram suspension Instructions mailed once procedure scheduled. Questions: [facility]: [phone] or GI Doctor's Office. 4000 mL 0 Not Taking Past Medical History: Past Medical History Diagnosis Date ??? HTN (hypertension) ??? Sleeping difficulty ??? Back pain 08/11/2014 S/p repeated lumbar surgeries with posterior spinal fusion and multiple revisions complicated by wound infection due to Staph epidermidis. ??? Nonspecific finding on examination of urine ??? Diarrhea ??? Depression ??? Lung disease ??? GERD (gastroesophageal reflux disease) ??? Staph infection 06/2014 s/p back surgery Social History: Past Surgical History Procedure Laterality Date ??? Lumbar fusion ??? Other surgical history SI joint infusion x3 ??? Bone incision and drainage x3 ??? Hip surgery ??? Colonoscopy 2015 History Substance Use Topics ??? Smoking status: Never Smoker ??? Smokeless tobacco: Former User Comment: daily for 28 years ??? Alcohol Use: No Family History: Family History Problem Relation Age of Onset ??? Diabetes Father ??? Heart Disease Father ??? Cancer Father Review of Systems as pertinent: Physical: Vital Signs: BP 147/94 mmHg Temp(Src) 37.2 ??C (99 ??F) (Temporal) Resp 18 Ht 167.6 cm (66) Wt 100.699 kg (222 lb) BMI 35.85 kg/m2 SpO2 97% Heart Examination: Cardiac Regularity: Regular Respiratory Examination: Respiratory Pattern: Regular Breath Sounds Right: Clear Breath Sounds Left: Clear Additional physical exam related to the proposed procedure, patient activity, disease state and treatment as pertinent: Assessment: Previous complications with sedation or anesthesia?: No Airway Concerns: None Anesthesia Classification: ASA 2 Plan: proceed Fasting Time: Patient Appropriate Candidate for Planned Sedation?: Yes Tad Alberto MD 08/20/2015 12:10 documented in this encounter Procedure Notes * Tad Alberto MD - 08/20/2015 1432 EST IR Procedure Note Procedure: Transjugular liver biopsy Date Performed: 08/20/2015 Radiologist/Senior Financial Analyst(s): Melissa/Dolly Sedation/Anesthesia: Fentanyl/Versed/Benadryl Time Out: A time-out was completed prior to procedure verifying correct patient, procedure, site, positioning, and special equipment if applicable. Estimated Blood Loss: Unless otherwise noted, there was no blood loss, specimens removed, cultures obtained, or drains retained. Specimens: Multiple 20g core bx of right lobe Fluoroscopy Time: 10 min Contrast Volume: 30 mL Complications: none Condition: stable Post Procedure Diagnosis: Abnormal LFTs Findings: Variant anatomy with right inferior hepatic vein Recommendations: f/u pathology Tad Alberto MD 08/20/2015 14:33 documented in this encounter Plan of Treatment Scheduled Orders Name Type Priority Associated Diagnoses Orde r Schedule SURGICAL PATHOLOGY- ORDER ONLY Pathology Routine One Time for 1 Occurrences starting 08/20/2015 until 08/20/2015 documented as of this encounter Procedures Procedure Name Priority Date/Time Associated Diagnosis Comments PROTIME STAT 08/20/2015 12:24 EST PLATELET COUNT STAT 08/20/2015 12:24 EST SURGICAL PATHOLOGY Routine 08/20/2015 9:06 EST documented in this encounter Results * PLT (08/20/2015 12:24 EST) PLT 290 141 - 377 K/cmm 08/20/2015 12:58 EST [facility] Comment:Note new reference r gloria effective 08/06/15 Blood specimen (specimen) BLOOD SPECIMEN / Unknown 08/20/2015 12:24 EST 08/20/2015 12:51 EST Fritz Horton PA-C HEMATOLOGY & PF4 ORDERABLES Performing Organization Address [facility] de Phone Number [facility] [address] [place] [address] * (ABNORMAL) PROTIME (08/20/2015 12:24 EST) Pro Time 14.6(H) 10.1 - 13.0 secs 08/20/2015 13:05 EST [facility] I.N.R. 1.3(H) 0.9 - 1.1 Ratio 08/20/2015 13:05 EST [facility] Comment: Moderate Intensity Coumadin INR = 2.0-3.0 Adjustments in anticoagulant therapy dose should be based upon the INR and NOT the Pro Time. Blood specimen (specimen) BLOOD SPECIMEN / Unknown 08/20/2015 12:24 EST 08/20/2015 12:51 EST Fritz Horton PA-C HEMATOLOGY & PF4 ORDERABLES Performing Organization Address [facility] de Phone Number [facility] [address] [place] [address] * SURGICAL PATHOLOGY (08/20/2015 9:06 EST) Pathology Report: SURGICAL PATHOLOGY REPORT Reports generated via electronic interface contain original data; however they are lacking the format of the original report. Caution should be taken when reading/interpreti ng unformatted reports. Name: ? ANTONY WEINER ? Accession #: ? [id number] ? : ? 1970 (Age: 45) ??M ? Collect Date: ? 08/20/2015 ? Location: ? [facility] ? Receive Date: ? 08/21/2015 ? Provider: LOGAN TORRES MD Copy to: VERONA CHANEL MD ? Final Pathologic Diagnosis: LIVER, NEEDLE CORE BIOPSY: - ??Well-established cirrhosis in a background of steatohepatitis (Grade 2, Stage 4). - ??See comment. Comment: The needle core biopsy shows marked steatosis (approximately 70% of hepatocytes) associated with ballooned hepatocytes and Lisa bodies. ??Trichrome stain highlights regenerative nodules and extensive parenchymal extinction. In addition there is ongoing pericellular/peris inusoidal fibrosis. Bile duct proliferation is present within fibrous bands. [place] bile ducts are present without evidence of epithelial injury. PAS amylase is negative for intracytoplasmic globules. Iron stain is negative for increased iron stores within hepatocytes. Overall, the histologic features of this biopsy are that of well-established cirrhosis arising in a background of steatohepatitis. Dr. Fontanez 08/23/2015 8:06 AM Document reviewed and electronically signed by: JACKY STAFFORD MD Report ??Date: 08/23/2015 16:22 By the signature above, the attending physician certifies that he/she has personally conducted a gross and/or microscopic examination of the described specimens and rendered or confirmed the above diagnosis. Specimen(s) Received: Right lobe liver Clinical History: Abnormal LFTs Gross Description: ? Received in formalin labelled with proper patient identification (initials W, K) and liver are three clarke-brown delicate tissue cores (1.3-1.6 cm in length, and each 0.1 cm in diameter). ??Entirely submitted in 1 with iron, trichrome and PAS-amylase requested. Meggan 08/21/2015 9:39 AM End of Report [facility] 08/20/2015 9:06 EST 08/21/2015 9:06 EST Logan Torres MD PATHOLOGY ORDER ALBARO [facility] [address] [place] [address] documented in this encounter Visit Diagnoses Not on filedocumented in this encounter Administered Medications Inactive Administered Medications - up to 3 most recent administrations Medication Order MAR Action Action Date Dose Rate Site diphenhydrAMINE (BENADRYL) injection 50 mg 50 mg, intravenous, NOW X1, 1 dose, On Thu08/20/15 at 1430, Routine Given 08/20/2015 14:00 EST 50 mg fentaNYL citrate (PF) 50 mcg/mL injection 25-250 mcg 25-250 mcg, intravenous, ONCE PRN, 1 dose, Starting on Thu08/20/15 at 1221, Until Thu08/20/15 at 1426, Pain, radiology, Routine, Intraprocedure Given 08/20/2015 14:26 EST 250 mcg midazolam (PF) (VERSED) 1 mg/mL injection 0.5-10 mg 0.5-10 mg, intravenous, ONCE PRN, 1 dose, Starting on Thu08/20/15 at 1221, Until Thu08/20/15 at 1426, Sedation, Routine, Intraprocedure Given 08/20/2015 14:26 EST 9.5 mg sodium chloride 0.9 % (NS) infusion 50 mL/hr, intravenous, CONTINUOUS, Starting on Thu08/20/15 at 1245, Until Thu08/20/15 at 1827, Routine, Preprocedure New Bag 08/20/2015 12:45 EST 50 mL/hr 50 mL/hr documented in this encounter Discontinued Medications Medication Sig Discontinue Reason Start Date End Da te ondansetron (ZOFRAN) 4 mg tablet Take 2 Tabs by mouth every 8 hours as needed for Nausea Therapy completed 10/27/2014 08/20/2015 oxyCODONE-acetaminophen (PERCOCET) 5-325 mg per tablet Take 1 Tab by mouth every 6 hours. Alternate therapy 08/20/2015 documented as of this encounter Historical Medications * This list may reflect changes made after this encounter. Medication Sig Dispensed Refills Start Date End Date HYDROcodone-acetaminophen (ZYDONE) 10-400 mg per tablet Take 1-2 Tabs by mouth every 6 hours as needed for Pain 11/30/2020 added in this encounter Active and Recently Administered Medications Times are shown in EST. Scheduled Medication Order 08/18/2015 08/19/2015 08/20/2015 diphenhydrAMINE (BENADRYL) injection 50 mg (COMPLETED) 50 mg, intravenous, NOW X1, 1 dose, On 08/20/15 at 1430, Routine 1400 (Given - Provid er: Pauline Mishra, RN) Continuous Medication Order 08/18/2015 08/19/2015 08/20/2015 sodium chloride 0.9 % (NS) infusion (CANCELED) 50 mL/hr, intravenous, CONTINUOUS, Starting on Thu08/20/15 at 1245, Until 08/20/15 at 1827, Routine, Preprocedure 1245 (New Bag - Prov ider: Meggan Betancourt RN) PRN Medication Order 08/18/2015 08/19/2015 08/20/2015 fentaNYL citrate (PF) 50 mcg/mL injection 25-250 mcg (COMPLETED) 25-250 mcg, intravenous, ONCE PRN, 1 dose, Starting on Thu08/20/15 at 1221, Until Thu08/20/15 at 1426, Pain, radiology, Routine, Intraprocedure 1426 (Given - Provid er: Pauline Mishra, RN) midazolam (PF) (VERSED) 1 mg/mL injection 0.5-10 mg (COMPLETED) 0.5-10 mg, intravenous, ONCE PRN, 1 dose, Starting on Thu08/20/15 at 1221, Until 08/20/15 at 1426, Sedation, Routine, Intraprocedure 1426 (Given - Provid er: Pauline Mishra, RN) documented in this encounter Orders Medications Ordered That Surendra ht Not Have Been Administered Count Last Ordered Date First Ordered Date acetaminophen (TYLENOL) suppository 650 mg 1 08/20/2015 acetaminophen (TYLENOL) tablet 650 mg 1 Nursing Count Last Ordered Date First Orde red Date BEDREST 1 08/20/2015 CHANGE DRESSING 08/20/2015 INSERT PERIPHERAL IV 1 08/20/2015 NOTIFY PHYSICIAN (SPECIFY) 1 08/20/2015 NURSING COMMUNICATION 1 08/20/2015 OXYGEN THERAPY 1 08/20/2015 POST PROCEDURE SITE ASSESSMENT 08/20/2015 REMOVE IV 1 08/20/2015 Transfer Count Last Ordered Date First Orde red Date NOTIFY PPS OF DISCHARGE COMPLETE 1 08/20/19 16 TEACHING SERVICE 1 08/20/2015 Discharge Count Last Ordered Date First Orde red Date DISCHARGE PATIENT 1 08/20/2015 documented in this encounter Care Teams Lapel Stitcher Relationship Specialty Start Date End Date Verona Collins MD PCP - General 06/26/11 05/12/23 documented as of this encounter
--- OUTSIDE RECORDS SUMMARY | 2024-02-29 08:20 | XMS_ITS | Encounter Summary ---
Author Organization [facility] Address [address] [place] [address] Care Team Providers Care Blanket Weaver Name Role Phone Tristan Collins MD Primary Care Provider Unav ailable Encounter Details Date Type Department Care Team (Late st Contact Info) Description 09/07/2014 Orders Only [facility] Infectious Disease - [address] [phone] Mando Medina MD [address] [facility], [address] [place] [phone] Social History Tobacco Use Types Packs/Day Years [...] Date/Time Associated Diagnosis Comments SED RATE Routine 09/04/2014 11:10 EST COMPLETE BLOOD COUNT Routine 09/04/2014 11:10 EST COMPLETE BLOOD COUNT AND DIFFERENTIAL Routine 09/04/2014 11:10 EST C REACTIVE PROTEIN Routine 09/04/2014 11 :10 EST HEPATIC FUNCTION PANEL (ALB,ALK PHOS,ALT,AST,DBIL,TOT JOSE M,TOT PROT) Routine 09/04/2014 11:10 EST documented in this encounter Results * (ABNORMAL) SED. RATE:TRAMSCARREN (09/04/2014 11:10 EST) Pathologist [facility] Sed. Rate Westergren, External 16(A) 0 - 15 MM/HR [facility] Blood specimen (specimen) 09/04/2014 11:10 EST Mando Medina MD HEMATOLOGY & PF4 ORDERABLES [facility] * (ABNORMAL) HEMAGRAM AND DIFFERENTIAL (09/04/2014 11:10 EST) WBC, External 8.24 4.4 - 10.8 k/cmm [facility] RBC, External 5.25 4.50 - 6.00 m/cumm [facility] Hemoglobin, External 12.7(A) 13.5 - 17.5 g/dL [facility] HCT, External 41.0 40.0 - 50.0 % [facility] MCV, External 78.1(A) 80 - 95 fL [facility] MCH, External 24.2(A) 27.0 - 33.0 pg [facility] MCHC, External 31.0(A) 32.0 - 36.0 % [facility] PLT, External 398 130 - 400 x100/uL [facility] RDW-CV, External 17.0(A) 11.8 - 14.1 % [facility] Neutrophils, External 55.0 40 - 74 % [facility] Lymphocytes, External 29.0 19 - 44 % [facility] Monocytes, External 7.0 3.0 - 10.0 % [facility] Eosinophils, External 8.0(A) 1 - 7.0 % [facility] Basophils, External 1.0 0.0 - 2.0 % [facility] ABS Neutrophils, External 4.53 1.2 - 6.7 k/cumm [facility] ABS Lymphs, External 2.39 1.2 - 3.4 k/cumm [facility] ABS Monocytes, External 0.58 0.11 - 0.7 k/cumm [facility] ABS Eosinophils, External 0.66 0 - 0.7 k/cumm [facility] ABS Basophils, External 0.08 0.0 - 0.2 k/cumm [facility] Comment:Please see scan medi a in PRISM for further information. Blood specimen (specimen) 09/04/2014 11:10 EST Mando Medina MD PACKAGES & DNA P ROBE ORDERABLES Performing Organization Address [facility] de Phone Number [facility] * HEMAGRAM (09/04/2014 11:10 EST) HCT, External Ordered in Error [facility] Comment:Ordered in Error MCH, External Ordered in Error [facility] Comment:Ordered in Error MCV, External Ordered in Error [facility] Comment:Ordered in Error MCHC, External Ordered in Error [facility] Comment:Ordered in Error Hemoglobin, External Ordered in Error [facility] Comment:Ordered in Error WBC, External Ordered in Error [facility] Comment:Ordered in Error RBC, External Ordered in Error [facility] Comment:Ordered in Error PLT, External Ordered in Error [facility] Comment:Ordered in Error RDW-CV, External Ordered in Error [facility] Comment:Ordered in Error Blood specimen (specimen) 09/04/2014 11:10 EST Mando Medina MD HEMATOLOGY & PF4 ORDERABLES Performing Organization Address [facility] Co de Phone Number [facility] * (ABNORMAL) C-REACTIVE PROTEIN (09/04/2014 11:10 EST) C-Reactive Protein, External 0.60(A) 0.0 - 0.3 mg/dL [facility] Blood specimen (specimen) 09/04/2014 11:10 EST Mando Medina MD CHEMISTRY & BLOO D GAS ORDERABLES Performing Organization Address [facility] Co de Phone Number [facility] * (ABNORMAL) HEPATIC FUNCTION PANEL (ALB,ALK PHOS,ALT,AST,DBIL,TOT JOSE M,TOT PROT) (09/04/2014 11:10 EST) Albumin, External 3.8 3.4 - 5.0 g/dL [facility] Total Protein, External 7.5 6.4 - 8.2 g/dL [facility] Alkaline Phosphatase, External 125(A) 46 - 116 U/L [facility] ALT, External 28 12 - 78 U/L [facility] AST, External 18 15 - 37 U/L [facility] Unconjugated Bilirubin Not given [facility] Conjugated Bilirubin, External 0.07 0.00 - 0.20 mg/dL [facility] Bilirubin, Total, External 0.28 0.2 - 1.0 mg/dL [facility] Blood specimen (specimen) 09/04/2014 11:10 EST Mando Medina MD CHEMISTRY & BLOO D GAS ORDERABLES Performing Organization Address City/[facility] Co de Phone Number [facility] documented in this encounter Visit Diagnoses Not on filedocumented in this encounter Care Teams Blanket Weaver Relationship Specialty Start Date End Date Tristan Collins MD PCP - General 06/26/11 05/12/23 documented as of this encounter
--- OUTSIDE RECORDS SUMMARY | 2024-02-29 08:20 | XMS_ITS | Encounter Summary ---
Author Organization [facility] Address [address] [place] [address] Care Team Providers Care Plastics Tooling Engineer Name Role Phone Tristan Collins MD Primary Care Provider Unav ailable Encounter Details Date Type Department Care Team (Late st Contact Info) Description 06/29/2015 Orders Only [facility] Gastroenterology - [facility] [address] [place], [place] [phone] Yaniv Herbert MD PhD [address] [facility], [address] [place] [phone] LFTs abnormal (Primary Dx) Social History [...] Procedure Name Priority Date/Time Associated Diagnosis Comments OUTPATIENT ADD-ON Routine 06/29/2015 12: 23 EST LFTs abnormal documented in this encounter Results * OUTPATIENT ADD-ON (06/29/2015 12:23 EST) Tests to be added CONJUGATED BILIRUBIN, UNCONJUGATED BILIRUBIN 06/29/2015 12:23 EST [facility] Diagnosis Code SEE PRISM 06/29/2015 12:31 EST [facility] Number for problems 7 06/29/2015 12:23 EST [facility] Comment:0062 Accession number [id number] 06/29/2015 12:31 EST [facility] Acknowledge ABP Done 5 12:35 EST [facility] BLOOD SPECIMEN / Unknown 06/29/2015 12:23 EST 06/29/2015 12:30 EST Yaniv Herbert MD PhD HEMATOLOGY & PF 4 ORDERABLES [facility] [address] [place] [address] documented in this encounter Visit Diagnoses Diagnosis LFTs abnormal- Primary Other abnormal blood chemistry documented in this encounter Care Teams Plastics Tooling Engineer Relationship Specialty Start Date End Date Tristan Collins MD PCP - General 06/26/11 05/12/23 documented as of this encounter
--- OUTSIDE RECORDS SUMMARY | 2024-02-29 08:20 | XMS_ITS | Encounter Summary ---
Author Organization [facility] Address [address] [place] [address] Care Team Providers Care Mobile Qa Tester Name Role Phone Tristan Collins MD Primary Care Provider Unav ailable Encounter Details Date Type Department Care Team (Late st Contact Info) Description 10/18/2014 Orders Only [facility] Infectious Disease - [address] [phone] Mando Medina MD [address] [facility], [address] [place] [phone] Social History Tobacco Use Types Packs/Day Years [...] Comments COMPLETE BLOOD COUNT AND DIFFERENTIAL Routine 10/11/2014 0:00 EDT C REACTIVE PROTEIN Routine 10/11/2014 0: 00 EDT BUN Routine 10/11/2014 0:00 EDT CREATININE Routine 10/11/2014 0:00 EDT documented in this encounter Results * (ABNORMAL) HEMAGRAM AND DIFFERENTIAL (10/11/2014 0:00 EDT) WBC, External 7.91 4.4 - 10.8 k/cumm [facility] RBC, External 5.47 4.50 - 6.00 m/cumm [facility] Hemoglobin, External 13.6 13.5 - 17.5 g/dL [facility] HCT, External 43.1 40.0 - 50.0 % [facility] MCV, External 78.8(A) 80 - 95 fL [facility] MCH, External 24.9(A) 27.0 - 33.0 pg [facility] MCHC, External 31.6(A) 32.0 - 36.0 % [facility] PLT, External 386 130 - 400 x1000/uL [facility] RDW-CV, External 18.5(A) 11.8 - 14.1 % [facility] Neutrophils, External 67.5 40 - 74 % [facility] Lymphocytes, External 20.4 19 - 44 % [facility] Monocytes, External 7.6 3.0 - 10.0 % [facility] Eosinophils, External 3.8 1 - 7.0 % [facility] Basophils, External 0.4 0.0 - 2.0 % [facility] ABS Neutrophils, External 5.35 1.2 - 6.7 k/cumm [facility] ABS Lymphs, External 1.61 1.2 - 3.4 k/cumm [facility] ABS Monocytes, External 0.60 0.11 - 0.7 k/cumm [facility] ABS Eosinophils, External 0.30 0 - 0.7 k/cumm [facility] ABS Basophils, External 0.03 0.0 - 0.2 k/cumm [facility] Comment:Please see the scann ed report in PRISM for further intepretation. Blood specimen (specimen) 10/11/2014 Mando Medina MD PACKAGES & DNA P ROBE ORDERABLES Performing Organization Address City/[facility]/ZIP Co de Phone Number [facility] * (ABNORMAL) C-REACTIVE PROTEIN (10/11/2014 0:00 EDT) C-Reactive Protein, External 0.37(A) 0.0 - 0.3 mg/dL [facility] Blood specimen (specimen) 10/11/2014 Mando Medina MD CHEMISTRY & BLOO D GAS ORDERABLES Performing Organization Address [facility] Co de Phone Number [facility] * (ABNORMAL) CREATININE (10/11/2014 0:00 EDT) Creatinine, External 0.7(A) 0.8 - 1.3 mg/dL [facility] GFR, Calculated, External >=60.00 >=60.00 mL/min/1.7 3m2 [facility] Comment:Please see the scann ed report in PRISM for further intepretation. Corrected refernce ranges 10/20/14 at 1718 Blood specimen (specimen) 10/11/2014 Mando Medina MD CHEMISTRY & BLOO D GAS ORDERABLES Performing Organization Address [facility] Co de Phone Number [facility] * BUN (10/11/2014 0:00 EDT) BUN, External 11 7 - 18 mg/dL [facility] Blood specimen (specimen) 10/11/2014 Mando Medina MD CHEMISTRY & BLOO D GAS ORDERABLES Performing Organization Address City/[facility]/ZIP Co de Phone Number [facility] documented in this encounter Visit Diagnoses Not on filedocumented in this encounter Care Teams Mobile Qa Tester Relationship Specialty Start Date End Date Tristan Collins MD PCP - General 06/26/11 05/12/23 documented as of this encounter
--- OUTSIDE RECORDS SUMMARY | 2024-02-29 08:20 | XMS_ITS | Encounter Summary ---
Author Organization [facility] Address [address] [place] [address] Care Team Providers Care Shoder Filler Name Role Phone Tristan Collins MD Primary Care Provider Unav ailable Reason for Visit * Reason Onset Date Comments Medications Refill 09/28/2014 Encounter Details Date Type Department Care Team (Late st Contact Info) Description 09/28/2014 Refill [facility] Infectious Disease - [address] [phone] Mando Medina MD [address] [facility], [address] [place] [phone] Medications Refill Social History Tobacco Use Types Packs/Day Years [...] as needed for Nausea 90 Tab 0 09/28/2014 10/27/2014 documented in this encounter Miscellaneous Notes * Telephone Encounter - Janina Leo RN - 09/29/2014 0902 EST Called patient this morning and spoke with patient over the phone. Explained to patient he should go to his PCP office where we have sent the order for stool sample for C. diff to obtain a stool sample kit and submit a sample as soon as possible. Patient also aware he may order picker his prescription for Zofran today. Patient states he will go today to submit stool sample and order picker Zofran. Patient understands plan with no barriers to learning noted. Janina Leo RN * Telephone Encounter - Janina Leo RN - 09/28/2014 1421 EST Left message with patient to call back. Zofran e-prescribed to [facility] in [place], [place]. Order for stool sample for C diff placed in PRISM and faxed to patient's PCP office [facility]. Janina Leo RN * Telephone Encounter - Mando Medina MD - 09/28/2014 1142 EST Edgard Roa, Could you please have Mr. Glaser tested for C difficile colitis? Given where he lives, I think it will be simplest via his primary care physician. A refill on the ondansetron is fine. Thanks, Oz Medina * Telephone Encounter - Janina Leo RN - 09/28/2014 0931 EST Spoke with patient on the phone. Patient reports severe nausea and abdominal pain. No vomiting. Reports the nausea has continued since he was on the IV antibiotics. Reports since he has been on oral Keflex he has been having severe diarrhea. Reports having 5 watery bowel movements every morning andsometimes will have watery bowel movements throughout the day. Reports he was taking over the counter imodium, but did it was not helping with the diarrhea, so he stopped taking it. Denies fevers. States he does not feel hydrated as he has been staying well hydrated, but has not been eating well. Explained to patient he may need to go to his PCP to get stool sample kit to check for C. diff. Briefly explained to patient what C. diff is and why he is at risk. Patient states his PCP office is [facility] and his labs usually are sent to the hospital in [place], [place]. Explained to patient I will review with Dr. Medina and will call patient back with the plan. Janina Leo RN documented in this encounter Plan of Treatment Not on file documented as of this encounter Visit Diagnoses Diagnosis Vertebral osteomyelitis ([facility])- Primary Unspecified osteomyelitis, other specified site documented in this encounter Discontinued Medications Medication Sig Discontinue Reason Start Date End Da te ondansetron (ZOFRAN) 4 mg tablet Take 2 Tabs by mouth every 8 hours as needed for Nausea. Reorder 08/16/2014 09/28/2014 documented as of this encounter Orders Lab Orders Without Results Count Last Ordered D ate First Ordered Date C. DIFFICILE MOLECULAR DETECTION 1 09/29/19 15 documented in this encounter Care Teams Shoder Filler Relationship Specialty Start Date End Date Tristan Collins MD PCP - General 06/26/11 05/12/23 documented as of this encounter
--- OUTSIDE RECORDS SUMMARY | 2024-02-29 08:20 | XMS_ITS | Encounter Summary ---
Author Organization [facility] Address [address] [place] [address] Care Team Providers Care Welfare Service Aide Name Role Phone Tristan Collins MD Primary Care Provider Unav ailable Reason for Visit * Reason Onset Date Comments Other 10/02/2014 Encounter Details Date Type Department Care Team (Late st Contact Info) Description 10/02/2014 Telephone [facility] Infectious Disease - [address] [phone] Mando Medina MD [address] [facility], [address] [place] [address] Other Social History Tobacco Use Types Packs/Day Years [...] encounter Miscellaneous Notes * Telephone Encounter - Sujata Montero RN - 10/02/2014 8424 EDT Spoke to INDU Moreira at [facility]. Order was faxed last week- they can not find Pt has stool kit already Order faxed to her directly [phone] * Telephone Encounter - Adriana Tarango - 10/02/2014 1231 EDT Shiva stated we were suppose to fax order for stool sample to [facility]. Stated they have not received order as of yet. Their fax is [phone]. documented in this encounter Plan of Treatment Not on file documented as of this encounter Visit Diagnoses Not on filedocumented in this encounter Care Teams Welfare Service Aide Relationship Specialty Start Date End Date Tristan Collins MD PCP - General 06/26/11 05/12/23 documented as of this encounter
--- OUTSIDE RECORDS SUMMARY | 2024-02-29 08:20 | XMS_ITS | Encounter Summary ---
Author Organization [facility] Address [address] [place] [address] Care Team Providers Care Car Wash Manager Name Role Phone Tristan Collins MD Primary Care Provider Unav ailable Encounter Details Date Type Department Care Team (Late st Contact Info) Description 06/29/2015 Orders Only [facility] Gastroenterology - [facility] [address] [place], [place] [phone] Yaniv Herbert MD PhD [address] [facility], [address] [place] [address] LFTs abnormal (Primary Dx) Social [...] Associated Diagnosis Comments OUTPATIENT ADD-ON Routine 06/29/2015 16: 14 EST LFTs abnormal documented in this encounter Results * OUTPATIENT ADD-ON (06/29/2015 16:14 EST) Tests to be added GANESH, SMOOTH MUSCLE ANTIBODY 06/29/2015 16:15 EST [facility] Diagnosis Code SEE JOHN, DOS 12.4.15 06/29/2015 16:25 EST [facility] Number for problems 7 06/29/2015 16:15 EST [facility] Comment:[id number] Accession number [id number] 06/29/2015 16:25 EST [facility] Acknowledge ABP Done 16:31 EST [facility] BLOOD SPECIMEN / Unknown 06/29/2015 16:14 EST 06/29/2015 16:24 EST Yaniv Herbert MD PhD HEMATOLOGY & PF 4 ORDERABLES [facility] [address] [place] [address] documented in this encounter Visit Diagnoses Diagnosis LFTs abnormal- Primary Other abnormal blood chemistry documented in this encounter Care Teams Car Wash Manager Relationship Specialty Start Date End Date Tristan Collins MD PCP - General 06/26/11 05/12/23 documented as of this encounter
--- OUTSIDE RECORDS SUMMARY | 2024-02-29 08:20 | XMS_ITS | Encounter Summary ---
Author Organization [facility] Address [address] [place] [address] Care Team Providers Care Patternmaker Metal Bench Name Role Phone Tristan Collins MD Primary Care Provider Unav ailable Encounter Details Date Type Department Care Team (Late st Contact Info) Description 04/05/2015 Phlebotomy Only [facility] [address] [place] [address] Workers Compensation Claims Specialist, Outpatient Unspecified osteomyelitis, other specified site; Diarrhea Social History Tobacco Use Types Packs/Day Years [...] No 04/05/2015 documented as of this encounter Plan of Treatment Not on file documented as of this encounter Procedures Procedure Name Priority Date/Time Associated Diagnosis Comments OVA/PARASITE EXAM Routine 04/05/2015 11: 17 EDT Diarrhea documented in this encounter Results * OVA/PARASITE EXAM (04/05/2015 11:17 EDT) Result No ova and parasites seen. (If Cryptosporidium, Cyclospora, or Microsporidium are suspected, specific tests must be requested.) Single negative specimen does not rule out the possibility of a parasitic infection. 04/06/2015 14:[address] [facility] Specimen of unknown material (specimen) STOOL SPECIMEN / Unknown 04/05/2015 11:17 EDT 04/05/2015 11:39 EDT Comment:Total fix vial submi tted Keyshawn Bui MD MICROBIOLOGY - GEN ERAL ORDERABLES [facility] [address] [place] [address] documented in this encounter Visit Diagnoses Diagnosis Unspecified osteomyelitis, other specified site Diarrhea documented in this encounter Orders Lab Orders Without Results Count Last Ordered D ate First Ordered Date BUN 1 04/05/2015 C-REACTIVE PROTEIN 1 04/05/2015 CREATININE 1 04/05/2015 HEMAGRAM AND DIFFERENTIAL 04/05/2015 documented in this encounter Care Teams Patternmaker Metal Bench Relationship Specialty Start Date End Date Tristan Collins MD PCP - General 06/26/11 05/12/23 documented as of this encounter
--- OUTSIDE RECORDS SUMMARY | 2024-02-29 08:20 | XMS_ITS | Encounter Summary ---
Author Organization [facility] Address [address] [place] [address] Care Team Providers Care Nurse Supervisor Name Role Phone Tristan Collins MD Primary Care Provider Unav ailable Reason for Visit * Reason Onset Date Comments Medications Refill 09/22/2014 Encounter Details Date Type Department Care Team (Late st Contact Info) Description 09/22/2014 Refill [facility] Infectious Disease - [address] [phone] Mando Medina MD [address] [facility], [address] [place] [address] Medications Refill Social History Tobacco Use Types [...] Telephone Encounter - Sujata Montero RN - 09/25/2014 1323 EST Left message for pt to call back, re request for refill on zofran. 90 tabs were sent to pharmacy 08/16/14 PICC was removed/IV cefazolin d/c'd at Dr Medina appt 09/09 Pt now on keflex QID Need to review with pt need for more antinausea med documented in this encounter Plan of Treatment Not on file documented as of this encounter Visit Diagnoses Not on filedocumented in this encounter Care Teams Nurse Supervisor Relationship Specialty Start Date End Date Tristan Collins MD PCP - General 06/26/11 05/12/23 documented as of this encounter
--- OUTSIDE RECORDS SUMMARY | 2024-02-29 08:20 | XMS_ITS | Encounter Summary ---
Author Organization [facility] Address [address] [place] [address] Care Team Providers Care Shelver Name Role Phone Tristan Collins MD Primary Care Provider Unav ailable Reason for Visit * Reason Onset Date Comments Appointment Related 07/18/2015 Encounter Details Date Type Department Care Team (Late st Contact Info) Description 07/18/2015 Telephone [facility] Gastroenterology - [facility] [address] [place] [address] Yaniv Herbert MD PhD [address] [facility], [address] [place] [address] Appointment Related Social History Tobacco Use Types [...] No 05/23/2015 documented as of this encounter Miscellaneous Notes * Telephone Encounter - Aleta Lambert M - 07/18/2015 1057 EST Patient would like to have a liver biopsy done. documented in this encounter Plan of Treatment Not on file documented as of this encounter Visit Diagnoses Not on filedocumented in this encounter Care Teams Shelver Relationship Specialty Start Date End Date Tristan Collins MD PCP - General 06/26/11 05/12/23 documented as of this encounter
--- OUTSIDE RECORDS SUMMARY | 2024-02-29 08:20 | XMS_ITS | Encounter Summary ---
Author Organization [facility] Address [address] [place] [address] Care Team Providers Care Contamination Consultant Name Role Phone Tristan Collins MD Primary Care Provider Unav ailable Reason for Referral * Consult, Test and Treat (Routine) - Specialty Report Received Specialty Diagnoses / Procedures Referred By Contac t Referred To Contact Diagnoses Generalized abdominal pain Procedures UPPER ENDOSCOPY Keyshawn Bui MD [address] [address] Referral ID Status Reason Start Date Expiration Date V isits Requested Visits Authorized [id number] Specialty Report Received 04/06/2015 1 1 * Consult, Test and Treat (Routine) - Specialty Report Received Specialty Diagnoses / Procedures Referred By Contact Referred To Contact Gastroenterology and Hepatology Diagnoses Diarrhea Procedures COLONOSCOPY Keyshawn Bui MD [address] [address] Referral ID Status Reason Start Date Expiration Date V isits Requested Visits Authorized [id number] Specialty Report Received 04/05/2015 1 1 Reason for Visit * Reason Comments New Patient Visit diarrhea: pt states: had staph infection in Dec tx until november (pic line then antibiotics) has had diarrhea/vomiting/abd pain/nausea/weight loss since then * Consult (Routine) - Closed Specialty Diagnoses / Procedures Referred By Contact Referred To Contact Gastroenterology and Hepatology Diagnoses Diarrhea Juan Antonio Patel MD [address] [place] [phone] [facility] [address] [place] [id number] Referral ID Status Reason Start Date Expiration Date Visits Re quested Visits Authorized [id number] Closed 1 1 Encounter Details Date Type Department Care Team (Late st Contact Info) Description 04/05/2015 9:20 EDT Office Visit [facility] - [address] [address] Keyshawn Bui MD 111 [facility], [address] [place] [address] Diarrhea (Primary Dx); Generalized abdominal pain Social History Tobacco Use Types Packs/Day [...] Sign Reading Time Taken Comments Blood Pressure 118/96 04/05/2015 0950 EDT Pulse 60 04/05/2015 0950 EDT Temperature - - Respiratory Rate - - Oxygen Saturation - - Inhaled Oxygen Concentration - - Weight 109 kg (240 lb 4.8 oz) 04/05/2015 0950 ED T Height 167.6 cm (5' 6) 04/05/2015 0950 EDT Body Mass Index 38.79 04/05/2015 0950 EDT documented in this encounter Functional Status [...] suspension Instructions mailed once procedure scheduled. Questions: [facility]: [phone] or GI Doctor's Office. 4000 mL 0 04/05/2015 04/05/2015 pantoprazole (PROTONIX) 40 mg tablet Take 1 Tab by mouth daily 90 Tab 3 04/05/2015 05/23/2015 documented in this encounter Progress Notes * Contreras León MD - 04/05/2015 1140 EDT Subjective: Patient ID: Yasmani Glaser is an 45 y.o. male. Chief Complaint Patient presents with ??? New Patient Visit diarrhea: pt states: had staph infection in Jun tx until november (pic line then antibiotics) has had diarrhea/vomiting/abd pain/nausea/weight loss since then HPI Mr Yasmani Glaser is a 45 year old male with a medical history of spinal laminectomy with fusioncomplicated by staph infection requiring senior living use of antibiotics who we are seeing for a nearly 9 month history of daily non-bloody diarrhea. Mr Glaser notes persistent diarrhea since initiation of antibiotics in July of this year. However, despite being off antibiotics since november, he hascontinued to experience multiple daily episodes of diarrhea with abdominal cramping, nocturnal symptoms, incontinence and associated 20 lb weight loss. He recalls maybe having c diff testing at the beginning of his symptoms but cannot recall. Patient Active Problem List Diagnosis ??? Back pain Past Medical History Diagnosis Date ??? HTN (hypertension) ??? Sleeping difficulty ??? Back pain 08/11/2014 S/p repeated lumbar surgeries with posterior spinal fusion and multiple revisions complicated by wound infection due to Staph epidermidis. ??? Nonspecific finding on examination of urine ??? Diarrhea ??? Depression Past Surgical History Procedure Laterality Date ??? Lumbar fusion ??? Other surgical history SI joint infusion x3 ??? Bone incision and drainage x3 Family History Problem Relation Age of [...] 1 Tab by mouth every 6 hours. No current facility-administered medications on file prior to visit. No Known Allergies Review of Systems Constitutional: Positive for weight loss and malaise/fatigue. Negative for fever, chills and diaphoresis. HENT: Negative for nosebleeds. Eyes: Negative for blurred vision, double vision and photophobia. Respiratory: Negative for cough and hemoptysis. Cardiovascular: Negative for chest pain, palpitations and orthopnea. Gastrointestinal: Positive for heartburn, nausea, abdominal pain and diarrhea. Negative for vomiting, constipation, blood in stool and melena. Musculoskeletal: Positive for back pain, joint pain and neck pain. Negative for myalgias. Skin: Negative for itching and rash. Neurological: Negative for dizziness, tingling, tremors, weakness and headaches. Endo/Heme/Allergies: Does not bruise/bleed easily. Psychiatric/Behavioral: Negative for depression, suicidal ideas and substance abuse. - See HPI Objective: BP 118/96 mmHg Pulse 60 Ht 167.6 cm (66) Wt 108.999 kg (240 lb 4.8 oz) BMI 38.80 kg/m2 Physical Exam Constitutional: He is oriented to person, place, and time. He appears well- developed and well-nourished. No distress. HENT: Head: Normocephalic and atraumatic. Eyes: Conjunctivae are normal. Right eye exhibits no discharge. Left eye exhibits no discharge. No scleral icterus. Cardiovascular: Normal rate and regular rhythm. Pulmonary/Chest: Effort normal and breath sounds normal. No respiratory distress. Abdominal: Soft. Bowel sounds are normal. He exhibits no distension and no mass. There is no tenderness. There is no rebound and no guarding. No hernia. Musculoskeletal: Normal range of motion. Neurological: He is alert and oriented to person, place, and time. Skin: Skin is warm and dry. No rash noted. He is not diaphoretic. No erythema. Psychiatric: He has a normal mood and affect. His behavior is normal. Assessment/Plan: Mr Yasmani Glaser is a 45 year old male with a medical history of spinal laminectomy with fusioncomplicated by staph infection requiring senior living use of antibiotics who we are seeing for a nearly 9 month history of daily non-bloody diarrhea. It would be most prudent to first rule out infectious causes of his chronic diarrhea. If his C.diff is negative, he can start taking immodium daily to help relieve symptoms as he awaits endoscopic evaluation with random biopsies next week. If that examis also negative, we would have essentially ruled out most etiologies of chronic diarrhea and giventhe onset of symptoms with antibiotic use, would recommend intermediate card tender probiotic use with added immodium Start PPI for upper GI symptoms- if no improvement at the time of colonoscopy, can consider adding on upper endoscopy as well. Contreras León MD Attestation statement: I saw and examined the patient with the resident/fellow. I agree with the findings and plan of care documented in the resident's/fellow's note. documented in this encounter Plan of Treatment Scheduled Orders Name Type Priority Associated Diagnoses Orde r Schedule UPPER ENDOSCOPY GI Routine Generalized abdominal pain Expected: 04/06/2015 documented as of this encounter Procedures Procedure Name Priority Date/Time Associated Diagnosis Comments COLONOSCOPY PROCEDURE Routine 04/11/2015 Diarrhea documented in this encounter Results * (ABNORMAL) C. DIFFICILE MOLECULAR DETECTION (04/11/2015 13:52 EDT) Result POSITIVE FOR C.DIFFICILE TOXIN BY PCR. Presumptive negative for 027, NAP1, BI strain.(AA) 04/11/2015 17:43 EDT [facility] Stool specimen (specimen) STOOL SPECIMEN / Unknown 04/11/2015 13:52 EDT 04/11/2015 14:40 EDT Keyshawn Bui MD MICROBIOLOGY - GEN ERAL ORDERABLES Performing Organization Address City/[facility]/ZIP Co de Phone Number [facility] [address] [place] [address] * COLONOSCOPY (04/11/2015) Colonoscopy [facility] Comment:no follow up recomme nded Colonoscopy, External [facility] Anatomical Region Laterality Modality Endoscopy 04/11/2015 Keyshawn Bui MD GI PROCEDURE ORDER [facility]BARO * OVA/PARASITE EXAM (04/05/2015 11:17 EDT) Result No ova and parasites seen. (If Cryptosporidium, Cyclospora, or Microsporidium are suspected, specific tests must be requested.) Single negative specimen does not rule out the possibility of a parasitic infection. 04/06/2015 14:38 EDT [facility] Specimen of unknown material (specimen) STOOL SPECIMEN / Unknown 04/05/2015 11:17 EDT 04/05/2015 11:39 EDT Comment:Total fix vial submi tted Keyshawn Bui MD MICROBIOLOGY - GEN ERAL ORDERABLES Performing Organization Address [facility]/ZIP Co de Phone Number [facility] [address] [place] [address] documented in this encounter Visit Diagnoses Diagnosis Diarrhea- Primary Generalized abdominal pain Abdominal pain, generalized documented in this encounter Discontinued Medications Medication Sig Discontinue Reason Start Date End Da te ibuprofen (MOTRIN) 800 mg tablet Take 800 mg by mouth every 8 hours as needed. Patient Stopped Taking 04/05/2015 Multivitamins with Minerals Tab Take 1 Tab by mouth daily. Patient Stopped Taking 04/05/2015 omeprazole (PRILOSEC) 20 mg capsule Take 20 mg by mouth daily. Patient Stopped Taking 04/05/2015 Potassium Gluconate 550 mg Tab Take 1 Tab by mouth daily. Therapy completed 04/05/2015 documented as of this encounter Care Teams Contamination Consultant Relationship Specialty Start Date End Date Tristan Collins MD PCP - General 06/26/11 05/12/23 documented as of this encounter
--- OUTSIDE RECORDS SUMMARY | 2024-02-29 08:20 | XMS_ITS | Encounter Summary ---
Author Organization [facility] Address [address] [place] [address] Care Team Providers Care Computer Tech Name Role Phone Tristan Collins MD Primary Care Provider Vilma Riojas Primary Care Provider Reason for Visit * Reason Onset Date Comments Other 04/16/2015 said he is retur rasheeda a call from last Thursday to . He was told to leave best time for a call back. He said he is available all the week- anytime at [phone].. Patient said this is regarding a stool sample. Encounter Details Date Type Department Care Team (Late Contact Info) Description 04/16/[address] [facility] G[facility]enter[facility] - [facility] [address] [place], [place] [id number] Keyshawn Bui MD 111 [facility], [address] [place] [address] Other (said he is returning a call from last Thursday to . He was told to leave best time for a call back. He said he is available all the week- anytime at [phone].. Patient said this is regarding a stool sample.) Social History Tobacco Use Types Packs/Day Years [...] on filedocumented in this encounter Care Teams Computer Tech Relationship Specialty Start Date End Date Tristan Collins MD PCP - General 06/26/11 05/12/23 Vilma Givens [address] [place] [address] PCP - General Internal Medicine - Primary Care 05/13/23 documented as of this encounter
--- OUTSIDE RECORDS SUMMARY | 2024-02-29 08:20 | XMS_ITS | Encounter Summary ---
Author Organization [facility] Address [address] [place] [address] Care Team Providers Care Parachute Accessories Attacher Name Role Phone Tristan Collins MD Primary Care Provider Unav ailable Reason for Visit * Reason Comments Follow-up vertebral osteomyeli tis Encounter Details Date Type Department Care Team (Late st Contact Info) Description 12/07/2014 13:00 EDT Office Visit [facility] Disease - [address] [address] Mando Medina MD 111 [facility], [address] [place] [address] Osteomyelitis of spine ([facility]) (Primary Dx) Social History Tobacco Use Types [...] Sign Reading Time Taken Comments Blood Pressure 161/104 12/07/2014 1302 EDT Pulse - - Temperature 36.7 ??C (98.1 ??F) 12/07/2014 1302 EDT Respiratory Rate - - Oxygen Saturation - - Inhaled Oxygen Concentration - - Weight 115.7 kg (255 lb) 12/07/2014 1302 EDT Height - - Body Mass Index 41.16 10/09/2011 1347 EDT documented in this encounter Discharge Diagnoses Diagnosis 730.28 OSTEOMYELIT NOS-OTHER SITE[ICD-9-CM] documented in this encounter Progress Notes * Mando Medina MD - 12/08/[address] [facility] INFECTIOUS DISEASE PROGRESS / FOLLOWUP NOTE - 12/07/2014 REASON FOR VISIT: Mr Glaser returns to the infectious diseases clinic today for ongoing followupregarding a 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 This is a workman's comp related visit. SUBJECTIVE: I last saw Mr Glaser in the infectious diseases clinic on 09/07/2014. He is a 44-year-old man who injured his back in April 2011 in a work-related injury. Since that time, he has hadan L4-L5 posterior spinal fusion with 3 revisions. This was most recently revised in April 2014 for severe sciatic pain and removal of overgrowth of bone. He represented to [facility] in June with a draining wound, and had I and D performed on July 08, , , and , with cultures positive for coag- negative Staphylococcus, which was sensitive to both methicillin and rifampin. He was treated with 6 weeks of intravenous cefazolin 2 grams q. 8 hours, which I discontinued on 09/07/2014. I switched him to oral cephalexin 4 times daily at that time. He has continued to take this, though with great difficulty due to nausea and significant vomiting. He also complains of anorexia, though has not lost any weight. He has not had any diarrhea, night sweats or fevers. He did have some loose bowel movements and had a C. difficile test last month, which was negative. Today, he is complaining of ongoing left-sided sciatic-type pain running down the back of hisleft leg and into his foot. This is somewhat exacerbated by movement. He does not have any of the local-type pain or swelling, which he initially presented with this infection with. SOCIAL HISTORY: Mr Glaser is currently not working. 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 He uses smokeless tobacco. ALLERGIES: None known. MEDICATIONS: His medications were reviewed and corrected in the [facility] as needed. As noted above, he completed 6 weeks of intravenous antibiotics and has been on a combination of cephalexin 500 mgp.o. q.i.d. since September 07. In addition, he took rifampin twice daily for approximately 3 weeks, but was unable to tolerate this. OBJECTIVE: On physical exam today, he is alert, oriented x3, in no acute distress. His weight is 116 kg. Temperature 36.7 degrees Celsius. He is significantly hypertensive at 161/104. Examination of his skin is notable for the absence of any rash or jaundice. Head and neck exam is with anicteric scl erae. Examination of his back is notable for a well-healed surgical wound in the lumbar area with no surrounding fluctuance, tenderness, warmth or erythema. He is able to stand and walk with normal gait. LABORATORY DATA: Performed at [facility] on November 29 is notable for a normal CBC except for a platelet count of 101,000, normal BUN and creatinine, C-reactive protein was normal in August, it has not been checked again. 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 This is in the contextof posterior spinal fusion with all the hardware in the immediate vicinity of the infection removedsurgically. My feeling is that we have now maximized his chances of cure of this infection with antibiotics. His ongoing back pain, I believe, is most likely mechanical in nature and does not reflectongoing infection. PLAN: 1. I discontinued his antibiotics and we will follow him off antibiotics at this point. 2. We discussed at length the potential signs and symptoms of relapsed infection and I encouraged him to call promptly should he have any concerns regarding this. I did not schedule him for followup at this time in the infectious diseases clinic. He is scheduled for followup with Dr Patel next week. 3. With regard to his nausea, my hope is that his nausea will improve now that he is off cephalexin. However, I think this nausea is more likely related to his narcotic pain medicines. I spent 30 minutes [id number] with Mr Glaser and 25 of those 30 minutes were spent discussing his osteomyelitis at the spine and the prognosis and treatment options for that. Mando Medina MD 02 46 PM - Mando Medina MD kn Dictation ID: [id number] cc: Tristan Collins MD, [address], [place] [address] Juan Antonio Patel MD, [address] [place] [id number] * Mando Medina MD - 12/07/2014 1432 EDT This office note has been dictated. documented in this encounter Plan of Treatment Not on file documented as of this encounter Visit Diagnoses Diagnosis Osteomyelitis of spine ([facility])- Primary Unspecified osteomyelitis, other specified site documented in this encounter Discontinued Medications Medication Sig Discontinue Reason Start Date End Da te cephALEXin (KEFLEX) 500 mg capsule Take 1 Cap by mouth 4 times daily for 180 days Therapy completed 09/07/2014 12/07/2014 amitriptyline (ELAVIL) 25 mg tablet Take 25 mg by mouth at bedtime. Discontinued by another clinician 12/07/2014 metoclopramide HCl (REGLAN) 5 mg tablet Take 5 mg by mouth 3 times daily as needed. Alternate therapy 12/07/2014 trazodone (DESYREL) 100 mg tablet Take 100 mg by mouth at bedtime. Alternate therapy 12/07/2014 DULoxetine (CYMBALTA) 20 mg capsule Take 20 mg by mouth daily. Discontinued by another clinician 12/07/2014 tramadol (ULTRAM) 50 mg tablet Take 50 mg by mouth 3 times daily. Discontinued by another clinician 12/07/2014 documented as of this encounter Care Teams Parachute Accessories Attacher Relationship Specialty Start Date End Date Tristan Collins MD PCP - General 06/26/11 05/12/23 documented as of this encounter
--- OUTSIDE RECORDS SUMMARY | 2024-02-29 08:20 | XMS_ITS | Encounter Summary ---
Author Organization [facility] Address [address] [place] [address] Care Team Providers Care State Manager Name Role Phone Tristan Collins MD Primary Care Provider Unav ailable Reason for Referral * (Routine/Next Available) - Closed Specialty Diagnoses / Procedures Referred By Contac t Referred To Contact Diagnoses Vertebral osteomyelitis ([facility]) Procedures NOTIFY [facility] Velia Ham RN Referral ID Status Reason Start Date Expiration Date Visits Re quested Visits Authorized [id number] Closed 09/07/2014 1 1 Reason for Visit * Reason Comments Follow-up vertebral osteomyeli tis with hardware present Encounter Details Date Type Department Care Team (Late st Contact Info) Description 09/07/2014 12:30 EST Office Visit [facility] Infectious Disease - [address] [id number] Mando Medina MD [address] [place] [address], [address] [place] [address] Vertebral osteomyelitis (CMS-HCC) (Primary Dx) Discharge Disposition: Auto Discharge Social History Tobacco [...] Sign Reading Time Taken Comments Blood Pressure 130/88 09/07/2014 1227 EST Pulse - - Temperature 36.7 ??C (98 ??F) 09/07/2014 1227 EST Respiratory Rate - - Oxygen Saturation - - Inhaled Oxygen Concentration - - Weight 118.4 kg (261 lb) 09/07/2014 1227 EST Height - - Body Mass Index 42.13 10/09/2011 1347 EDT documented in this encounter Discharge Diagnoses Diagnosis 730.28 OSTEOMYELIT NOS-OTHER SITE[ICD-9-CM] documented in this encounter Ordered Prescriptions Prescription Sig Dispensed Refills Start Date End Da te cephALEXin (KEFLEX) 500 mg capsule Take 1 Cap by mouth 4 times daily for 180 days 360 Cap 1 09/07/2014 12/07/2014 documented in this encounter Discharge Disposition Disposition Code Departure Means Destination Auto Discharge documented in this encounter Progress Notes * Mando Medina MD - 09/08/[address] 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 This is a workman's comp related visit. SUBJECTIVE: I last saw Mr Glaser in the infectious diseases clinic on 08/11/2014. He is a 44-year- old man who injured his back in April 2011 in a work-related injury. Since that time, he has had an L4-L5 posterior spinal fusion with 3 revisions. Most recently, he had a revision in April 2014, which was performed for severe sciatic pain and they went in to clean out bone overgrowth. He re-presented to [facility] on July 08 with a draining wound and had I+Ds performed on July 08, , , and with cultures positive for coagulase-negative Staphylococcus, which is sensitive to methicillin and rifampin. He has been on IV cefazolin 2 g q.8 hours via a right arm PICC line since that time. He has had no fevers or further wound drainage and the wound has healed well. He continues to have quite significant back pain, which is predominantly sciaticin nature and on his left side. He has had no diarrhea. He does note ongoing severe fatigue. He hasnot had any night sweats or fevers. REVIEW OF SYSTEMS: A complete 10-point review of systems was performed and was negative except as noted above. SOCIAL HISTORY: Mr Glaser is not currently working. 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 He uses smokeless tobacco and has never smoked. ALLERGIES: None known. MEDICATIONS: His medications were reviewed and corrected in the [facility] as needed. He has been oncefazolin 2 g IV q.8 hours since July 12 and was on vancomycin for 3 days prior to that. He has been on rifampin 300 mg twice daily since August 11. OBJECTIVE: On physical exam today, he is alert, oriented x3, in no acute distress. His weight is 118.4 kg, which is up almost 2 kg since last month. Temperature 36.7 degrees Celsius, blood pressure 130/88. He has a PICC line in his right upper extremity with no arm swelling, erythema, tenderness, or purulence. The dressing is clean. Examination of his skin is notable for the absence of any rash or jaundice. Head and neck exam is with anicteric sclerae. Examination of his back is notable for what appears to be a well-healing wound on his lumbar spine with no surrounding erythema, fluctuance, tenderness or warmth. He is ambulating slightly better than previously and his neurologic exam is notable for normal strength in his lower extremities. LABORATORY DATA: Most recent blood work is from September 04 with a C-reactive protein of 0.6, upper limit of normal of 0.3, AST 18, ALT 28, alkaline phosphatase 125, which is slightly elevated. CBC with a white count of 8.2 thousand, hematocrit 41%, platelet count 398,000, normal differential except for 8% eosinophils. Cultures from [facility] on July 08 grew Staph epidermidis, which is sensitive to cefazolin, sensitive to ciprofloxacin, sensitive to tetracyclines, sensitive to trimethoprim sulfa, and sensitive to rifampin. IMPRESSION: 1. Vertebral osteomyelitis. 2. Posterior spinal wound infection with presumed hardware involvement. The hardware directly affected by the infection was removed, but he has residual hardware on the left side. There is some concern that he is having ongoing fatigue and pain, though I suspect his pain is predominantly mechanicalin nature. Overall, given his improved inflammatory markers and good wound healing, I think that heis doing well from the standpoint of suppressing this infection although there is considerable riskthat it will relapse following cessation of antibiotics. I think that his rifampin may be contributing significantly to his ongoing fatigue, and the evidence supporting its use here is relatively weak. PLAN: 1. I discontinued his rifampin today because of concern for potential drug-drug interactions as well as side effects. 2. I discontinued his IV cefazolin, as we have now maximized the benefit of intravenous antibiotics. I removed his PICC line in the clinic today. 3. I prescribed cephalexin 500 mg p.o. q.i.d. He should take this until the fusion is solid at which point it would be feasible to remove the remainder of the hardware if that became necessary. 4. We can reduce the frequency of blood work to no more than once a month. He will have this done at his primary care physician's office (Dr. Collins). 5. We contacted [facility] as well as his pharmacy about the IV antibiotics being discontinued. 6. He will return here in approximately 3 months' time. I encouraged him to call sooner with any questions or concerns. 7. He will be following up with Dr Patel as well as his primary care physician in the interim. I spent 45 minutes [id number] with Mr Glaser and 30 of those 45 minutes were spent discussing his diagnosis of vertebral osteomyelitis and posterior spinal fusion wound infection and his prognosis and treatment options. Mando Medina MD 08 49 AM - Mando Medina MD cn Dictation ID: [id number] cc: Tristan Collins MD, [address], [place] [address] Juan Antonio Patel MD, [address] [place] [address] * Velia Ham RN - 09/08/2014 0842 EST [facility] notified. * Mando Medina MD - 09/07/2014 1321 EST This office note has been dictated. documented in this encounter Plan of Treatment Not on file documented as of this encounter Visit Diagnoses Diagnosis Vertebral osteomyelitis ([facility])- Primary Unspecified osteomyelitis, other specified site documented in this encounter Discontinued Medications Medication Sig Discontinue Reason Start Date End Da te CEFAZOLIN SODIUM IN 0.9 % NACL (CEFAZOLIN IN NORMAL SALINE) 2 gram/100 mL solutionIndications:bone infection Inject 2 g into the vein 3 times daily Indications: BONE INFECTIONS. Therapy completed 07/12/2014 09/07/2014 rifampin (RIFADIN) 300 mg capsule Take 1 Cap by mouth 2 times daily for 180 days. Side effects 08/11/2014 09/07/2014 documented as of this encounter Orders Nursing Count Last Ordered Date First Orde red Date NOTIFY [facility] 1 09/07/2014 documented in this encounter Care Teams State Manager Relationship Specialty Start Date End Date Tristan Collins MD PCP - General 06/26/11 05/12/23 documented as of this encounter
--- OUTSIDE RECORDS SUMMARY | 2024-02-29 08:20 | XMS_ITS | Encounter Summary ---
Author Organization [facility] Address [address] [place] [address] Care Team Providers Care Early Learning Teacher Name Role Phone Tristan Collins MD Primary Care Provider Unav ailable Reason for Visit * Reason Comments Follow-up liver biopsy Encounter Details Date Type Department Care Team (Late st Contact Info) Description 09/04/2015 14:00 EST Office Visit [facility] Gastroenterology - [facility] [address] [place] [address] Yaniv Herbert MD PhD [address] [facility], [address] [place] [address] Liver cirrhosis secondary to nonalcoholic steatohepatitis (MITCHELL) (CMS-HCC) (Primary Dx) Social History Tobacco Use Types [...] Sign Reading Time Taken Comments Blood Pressure 142/88 09/04/2015 1425 EST Pulse 68 09/04/2015 1425 EST Temperature - - Respiratory Rate - - Oxygen Saturation - - Inhaled Oxygen Concentration - - Weight 103.9 kg (229 lb) 09/04/2015 1425 EST Height 167.6 cm (5' 6) 09/04/2015 1425 EST Body Mass Index 36.96 09/04/2015 1425 EST documented in this encounter Functional Status [...] as of this encounter Discharge Diagnoses Diagnosis K75.81 Nonalcoholic steatohepatitis (MITCHELL)-K75.81[ICD-10-CM] K74.60 Unspecified cirrhosis of liver-K74.60[ICD-10-CM] documented in this encounter Progress Notes * Yaniv Herbert MD - 09/04/2015 1705 EST [facility] GASTROENTEROLOGY AND HEPATOLOGY PROGRESS / FOLLOWUP NOTE - 09/04/2015 Tristan Collins MD [address], [place] [address] Collins: This is to let you know that I have seen your patient, Yasmani Glaser, in the office today. As you know, he is a 45-year-old man with a history of abnormal biochemical liver tests. I saw him in consultation in June 2015, when he was asymptomatic from the standpoint of liver disease, and laboratory testing revealed an elevated FIB-4 score of 2.87, which raised the possibility that advanced hepatic fibrosis was present. He therefore underwent a transjugular liver biopsy in July 2015. The hepatic sinusoidal pressure gradient was elevated at 9 torr. The histological findings were indicative of steatohepatitis, and cirrhosis was present. Current medications include chlorthalidone, citalopram, diazepam, fluticasone inhaler, gabapentin, pantoprazole and hydrocodone/acetaminophen. On physical examination, the patient was found to be an obese white man, weight 229 pounds (BMI 36.96), blood pressure 142/88, pulse 68. In summary, Mr Glaser has cirrhosis secondary to nonalcoholic steatohepatitis (MITCHELL), which has been complicated by portal hypertension. The treatment of choice for MITCHELL is weight loss through dietary calorie reduction and to avoid alcoholic beverages. Formal consultation with a missile inspector preflight maybe helpful in this regard. I have provided the patient with a brochure from the [employer], which includes its website (www.liverfoundation.org), for additional information. The presence of portal hypertension places the patient at risk for esophageal varices (not detectedon endoscopy in 2015). One preventative strategy would be to include in the antihypertensive regimen carvedilol at a dosage of 12.5 mg daily. The alternative would be surveillance endoscopy in 2018. Cirrhosis also places the patient at risk for the development of hepatocellular carcinoma. I would recommend that a screening right upper quadrant abdominal ultrasound be arranged and surveillance imaging should be performed every 6 months indefinitely. The patient would prefer to have this performed close to home, and I request that you arrange for this at [facility]. My only other recommendation is that you vaccinate the patient against hepatitis A (and hepatitis Bif there is no serological evidence of immunity), and that you monitor him at least every 6 months with a complete blood count, comprehensive metabolic panel, and prothrombin time. I do not necessarily need to see him in routine followup, but I would be prepared to see him for a liver specific complication (e.g., diuretic resistant ascites, new hepatic mass lesion), or if the MELD score rises above 15. Thank you once again for allowing me to see this patient in consultation with you. Should you have any further questions regarding this evaluation, please feel free to contact me at any time. Sincerely, Yaniv Herbert MD,PhD 02 47 PM - Yaniv Herbert MD,PhD mn Dictation ID: [id number] cc: Tristan Collins MD, [address], [address], [place] [address] Keyshawn Bui MD, [facility] - Gastroenterology [address] [place] [address] * Yaniv Herbert MD - 09/04/2015 7185 EST This office note has been dictated. documented in this encounter Plan of Treatment Not on file documented as of this encounter Visit Diagnoses Diagnosis Liver cirrhosis secondary to nonalcoholic steatohepatitis (MITCHELL) (HCC-CMS)- Primary documented in this encounter Care Teams Early Learning Teacher Relationship Specialty Start Date End Date Tristan Collins MD PCP - General 06/26/11 05/12/23 documented as of this encounter
--- OUTSIDE RECORDS SUMMARY | 2024-02-29 08:20 | XMS_ITS | Encounter Summary ---
Author Organization [facility] Address [address] [place] [address] Care Team Providers Care Ultrasonic Seaming Machine Operator Name Role Phone Tristan Collins MD Primary Care Provider Unav ailable Encounter Details Date Type Department Care Team (Late st Contact Info) Description 04/05/2015 16:39 EDT - 04/05/2015 16:40 EDT Hospital Encounter [address] [address] Keyshawn Bui MD [address] [facility], [facility] [address] [place] [phone] Discharge Disposition: Home or Self Care Social [...] suspension Instructions mailed once procedure scheduled. Questions: [facility] Gastroenterology: [phone] or GI Doctor's Office. 4000 mL 0 04/05/2015 10/31/2021 documented as of this encounter Discharge Disposition Disposition Code Departure Means Destination Home or Self Care documented in this encounter Plan of Treatment Not on file documented as of this encounter Visit Diagnoses Not on filedocumented in this encounter Care Teams Ultrasonic Seaming Machine Operator Relationship Specialty Start Date End Date Tristan Collins MD PCP - General 06/26/11 05/12/23 documented as of this encounter
--- OUTSIDE RECORDS SUMMARY | 2024-02-29 08:20 | XMS_ITS | Encounter Summary ---
Author Organization [facility] Address [address] [place] [address] Care Team Providers Care Pipelayer Name Role Phone Tristan Collins MD Primary Care Provider Unav ailable Reason for Visit * Reason Onset Date Comments Other 07/09/2015 just received le tter regarding results. please call patient Encounter Details Date Type Department Care Team (Late st Contact Info) Description 07/09/2015 Telephone [facility] Gastroenterology - [facility] [address] [place], [place] [id number] Yaniv Herbert MD PhD [address] [place] [address], [facility] [address] [place] [address] Other (just received letter regarding results. please call patient) Social History Tobacco Use Types Packs/Day Years [...] Telephone Encounter - Paulina Law RN - 07/09/2015 1158 EST Returned the patient,s call. He asks that a copy of the result letter be faxed to his workman,s comp supervisor case loading. He was advised to call Health Information for this request & was given the contact number for this request.He states he will consider Dr.Lidofskys recommendation for liver biopsy & call back with his decision. documented in this encounter Plan of Treatment Not on file documented as of this encounter Visit Diagnoses Not on filedocumented in this encounter Care Teams Pipelayer Relationship Specialty Start Date End Date Tristan Collins MD PCP - General 06/26/11 05/12/23 documented as of this encounter
--- OUTSIDE RECORDS SUMMARY | 2024-02-29 08:20 | XMS_ITS | Encounter Summary ---
Author Organization [facility] Address [address] [place] [address] Care Team Providers Care Planning Manager Name Role Phone Tristan Collins MD Primary Care Provider Unav ailable Reason for Visit * Reason Onset Date Comments Labs Only 10/09/2014 Encounter Details Date Type Department Care Team (Late st Contact Info) Description 10/09/2014 Telephone [facility] Infectious Disease - [address] [phone] Mando Medina MD 111 [facility], [address] [place] [address] Labs Only Social History Tobacco Use Types Packs/Day Years [...] encounter Miscellaneous Notes * Telephone Encounter - Velia Ham RN - 10/09/2014 9553 EDT Shiva had his PICC pulled 09/09/14 and given an RX of po cephalexin 500 mg p.o. Q.i.d. 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 Per Dr. Medina, Shiva is to have monthly blood work orders (CBC with diff, BUN, Cr, and CRP) which will be drawn at [facility] in [place], [place]., closer to the patient's home. and . Faxed orders to [facility] * Telephone Encounter - Adriana Tarango - 10/09/2014 0810 EDT Shiva stated had PICC line pulled about 4 weeks ago. Is on oral antibiotics. He would like to know when he should get labs done. He can be reached at [phone]. documented in this encounter Plan of Treatment Not on file documented as of this encounter Visit Diagnoses Diagnosis Unspecified osteomyelitis, other specified site- Primary documented in this encounter Care Teams Planning Manager Relationship Specialty Start Date End Date Tristan Collins MD PCP - General 06/26/11 05/12/23 documented as of this encounter
--- OUTSIDE RECORDS SUMMARY | 2024-02-29 08:20 | XMS_ITS | Encounter Summary ---
Author Organization [facility] Address [address] [place] [address] Care Team Providers Care Men'S Basketball Coach Name Role Phone Tristan Collins MD Primary Care Provider Unav ailable Reason for Referral * Consult (Routine) - Specialty Report Received Specialty Diagnoses / Procedures Referred By Contact Referred To Contact Gastroenterology and Hepatology Diagnoses Elevated liver enzymes Keyshawn Bui MD [address] [place] [phone] [facility] [address] [place] [address] Referral ID Status Reason Start Date Expiration Date Visits Requested Visits Authorized [id number] Specialty Report Received Specialty Services Required 5 1 1 Question Answer Reason for Request: elvated liver enzymes/ schedule with magisterial district judge Reason for Visit * Reason Onset Date Comments Referral Request 06/05/2015 Dr. Bui sen t patient a letter that stated he would set up referral to a Director Of Fundraising. He is waitng for a call. Encounter Details Date Type Department Care Team (Late st Contact Info) Description 06/05/2015 Telephone [facility] [place] [address] Keyshawn Bui MD [address] [place] [phone] Referral Request (Dr. Bui sent patient a letter that stated he would set up referral to a Director Of Fundraising. He is waitng for a call. ) Social History Tobacco Use Types Packs/Day [...] Miscellaneous Notes * Telephone Encounter - Paulina Law, RN - 06/05/2015 1148 EST Left message that the patient will be called with a referral date & time to one of our magisterial district judge.( order in [facility]) documented in this encounter Plan of Treatment Scheduled Referrals Name Type Priority Associated Diagnoses Order Schedule AMB CONS/FOLLOW UP GASTROENTEROLOGY Outpatient Referral Routine Elevated liver enzymes Ordered: 06/05/2015 documented as of this encounter Visit Diagnoses Diagnosis Elevated liver enzymes- Primary Other nonspecific abnormal serum enzyme levels documented in this encounter Care Teams Men'S Basketball Coach Relationship Specialty Start Date End Date Tristan Collins MD PCP - General 06/26/11 05/12/23 documented as of this encounter
--- OUTSIDE RECORDS SUMMARY | 2024-02-29 08:20 | XMS_ITS | Encounter Summary ---
Author Organization [facility] Address [address] [place] [address] Care Team Providers Care Clarifier Name Role Phone Tristan Collins MD Primary Care Provider Unav ailable Reason for Visit * Reason Comments Back Pain low back left leg pa in Hand Pain bilateral hand pain Encounter Details Date Type Department Care Team (Latest Contact Info) Description 09/20/2015 9:45 EST Office Visit [facility] Interventional Pain [address] [place] [address] Ashwini Moore MD Haque, Ahmed R, MD [address] [place] [phone] Lumbosacral radiculopathy (Primary Dx); Spondylosis without myelopathy or radiculopathy, lumbosacral region; Myalgia Social History Tobacco Use Types Packs/Day Years [...] Sign Reading Time Taken Comments Blood Pressure 178/119 09/20/2015 0949 EST Pulse 84 09/20/2015 0949 EST Temperature 37.1 ??C (98.7 ??F) 09/20/2015 0949 EST Respiratory Rate 16 09/20/2015 0949 EST Oxygen Saturation - - Inhaled Oxygen Concentration - - Weight 100.7 kg (222 lb) 09/20/2015 0949 EST Height 167.6 cm (5' 6) 09/20/2015 0949 EST Body Mass Index 35.83 09/20/2015 0949 EST documented in this encounter Functional Status [...] No 09/20/2015 documented as of this encounter Discharge Diagnoses Diagnosis M54.17 Radiculopathy, lumbosacral region-M54.17[ICD-10-CM] M47.817 Spondylosis without myelopathy or radiculopathy, lumbosacral region-M47.817[ICD-10-CM] M79.1 Myalgia-M79.1[ICD-10-CM] documented in this encounter Progress Notes * Abilio Lawrence MD - 09/20/2015 1055 EST [facility] Patient Name: Yasmani Glaser Date of Service: 09/20/2015 Chief Complaint: Chief Complaint Patient presents with ??? Back Pain low back left leg pain ??? Hand Pain bilateral hand pain Physician Requesting Consultation: Tristan Collins History of Present Illness: Patient presents at the request of Trisatn Collins for initial evaluation and treatment recommendations of the patient's pain. Mr. Yasmani Glaser is a 45 y.o. male with past medical history significant for multiple level laminectomy/fusion, bilateral sacroiliac joint fusion, L5-S1 foraminotomy since 2011 that presents to the pain clinic concerning his chronic low back, neck pain, and leg pain. The patient has been suffering from his pain for the last 4 years. Yasmani Glaser primarily localizes the pain at his lo wer back and legs, with radiation to the feet. He describes the pain as dull, throbbing and aching in character, and ranging from a 7 to a 9 out of 10 in severity. Some of the aggravating factors of his pain are walking and daily chores. He notes no alleviating factors.. Patient currently denies any bowel and/or bladder incontinence, progressive weakness, saddle numbness, unexplained fever, trauma or unexplained weight loss. Patient has been treated with the following in regards to addressing his chronic pain: Interventional: multiple surgeries and past injections that have given him no relief Pharmacological: hydrocodone 10mg 1-2 q3h, gabapentin 300mg tid, citalopram Physical therapy: hasn't done any in over a year Please see Pain Medicine Center Initial Assessment Questionnaire in scan media for more details. Allergies: No Known Allergies Current Medications: Current Outpatient Prescriptions Medication Sig Dispense Refill [...] and/or to effect. 90 Cap 2 ??? HYDROcodone-acetaminophen (ZYDONE) 10-400 mg per tablet Take 1-2 Tabs by mouth every 6 hours asneeded for Pain ? ? pantoprazole (PROTONIX) 40 mg tablet Take 1 Tab by mouth BEFORE BREAKFAST & DINNER 60 Tab 3 ??? polyethylene glycol (GOLYTELY;NULYTELY) 236-22.74-6.74 -5.86 gram suspension Instructions mailed once procedure scheduled. Questions: [facility] Gastroenterology: [phone] or GI Doctor's Office. 4000 mL 0 No current facility-administered medications for this visit. Past Medical HX: Past Medical History Diagnosis Date ??? HTN (hypertension) ??? Sleeping difficulty ??? Back pain 08/11/2014 S/p repeated lumbar surgeries with posterior spinal fusion and multiple revisions complicated by wound infection due to Staph epidermidis. ??? Nonspecific finding on examination of urine ??? Diarrhea ??? Depression ??? Lung disease ??? GERD (gastroesophageal reflux disease) ??? Staph infection 06/2014 s/p back surgery ??? Liver cirrhosis secondary to nonalcoholic steatohepatitis ([place]) 09/04/2015 ??? Anxiety Past Surgical HX: Past Surgical History Procedure Laterality Date ??? Lumbar fusion ??? Other surgical history SI joint infusion x3 ??? Bone incision and drainage x3 ??? Hip surgery ??? Colonoscopy 2014 ??? Liver biopsy 07/2015 Past Social HX: History Social History ??? Marital Status: Spouse Name: N/A ??? Number of Children: N/A ??? Years of Education: N/A Occupational History ??? Not on file. Social History Main Topics ??? Smoking status: Never Smoker ??? Smokeless tobacco: Former User Comment: Daily x 28 YRS - Quit 4 YRS ago. ??? Alcohol Use: Yes Comment: OCCASIONAL ??? Drug Use: No ??? Sexual Activity: Partners: Female Other Topics Concern ??? Not on file Social History Narrative Family HX: Patient denies any family history of chronic pain, immunological or genetic syndromes that is contributory to the patient's current symptoms. Review of Systems: A 12 point review of system was performed and reviewed. Pertinent positives have been included in HPI and past medical history. In addition he reports multiple GI complaints. Please see scan documents for details. Physical Exam: Vitals: BP 178/119 mmHg Pulse 84 Temp(Src) 37.1 ??C (98.7 ??F) (Tympanic) Resp 16 Ht 167.6 cm (66) Wt 100.699 kg (222 lb) BMI 35.85 kg/m2 General: Patient is alert and oriented x3, no acute distress Neuro: Cranial nerves II-XII grossly intact and symmetric Cardio: Palpable pulses bilaterally Lungs: symmetric chest rise, no evidence of labored breathing Skin: clear, warm, dry and intact and no rashes, bruises or petechiae noted Musculoskeletal: Gait: patient ambulates independently , walks with limp no obvious scoliosis or abnormal curvature of the spine Cervical Spine: tenderness elicited upon palation , minimal pain elicited upon facet loading Upper Extremity: strength 5/5, sensory bilaterally equal to light tough, negative spurling's test Lumbar Spine: tenderness elicited upon palation , pain elicited upon facet loading, negative Straight leg test Sacroiliac joint: tenderness upon palpation, negative NADJA Lower Extremity: strength 5/5, sensory bilaterally equal to light tough Assessment: 1. Lumbosacral radiculopathy 2. Spondylosis without myelopathy or radiculopathy, lumbosacral region 3. Myalgia Plan: Mr. Yasmani Glaser is a 45 y.o. male with past medical history significant for multiple back surgeries that presents to the pain clinic for initial consultation and treatment recommendations concerning his chronic generalized pain. Given the patient's symptomatology, physical exam findings andimaging results, we feel that the patient would most benefit from a further titration of his neuropathic pain medication regimen. Continue gabapentin 300mg TID and can titrate up to 600mg TID as tolerated. Start amitriptyline 25mg qHS and titrate up to 75mg as tolerated. Would add mobic 7.5 mg oncea day prn. Patient may benefit from a slow titration down of his opiod medication regimen to guard a gainst opiod induced hyperalgesia once his other medications is at a stable dose. Recommend comprehensive physical therapy to guard against muscle loss and diminished functionality. All risks, benefits, and alternatives were thoroughly explained to Mr. Yasmani Glaser who verbally communicated understanding of the management plan. -increase gabapentin 600mg TID slowly -start amitryptyline 25mg and titrate up to 75mg QHS -start mobic 7.5mg prn -physical therapy -consider GI referral to rule out IBS Abilio Lawrence MD Pain Medicine Fellow Attending attestation: I saw and examined the patient with the resident/fellow. I agree with the findings and plan of care documented in the resident's/fellow's note. Ashwini Moore MD documented in this encounter Plan of Treatment Not on file documented as of this encounter Visit Diagnoses Diagnosis Lumbosacral radiculopathy- Primary Thoracic or lumbosacral neuritis or radiculitis, unspecified Spondylosis without myelopathy or radiculopathy, lumbosacral region Myalgia Mylagia and myositis, unspecified documented in this encounter Care Teams Clarifier Relationship Specialty Start Date End Date Tristan Collins MD PCP - General 06/26/11 05/12/23 documented as of this encounter
--- OUTSIDE RECORDS SUMMARY | 2024-02-29 08:20 | XMS_ITS | Encounter Summary ---
Author Organization [facility] Address [address] [place] [address] Care Team Providers Care Chief Investment Officer Name Role Phone Tristan Collins MD Primary Care Provider Unav ailable Encounter Details Date Type Department Care Team (Late st Contact Info) Description 08/31/2014 Orders Only [facility] Infectious Disease - [address] [id number] Mando Medina MD [address] [facility], [address] [place] [phone] Social History Tobacco Use Types Packs/Day Years [...] Date/Time Associated Diagnosis Comments SED RATE Routine 08/21/2014 10:45 EST COMPLETE BLOOD COUNT AND DIFFERENTIAL Routine 08/21/2014 10:45 EST C REACTIVE PROTEIN Routine 08/21/2014 10 :45 EST HEPATIC FUNCTION PANEL (ALB,ALK PHOS,ALT,AST,DBIL,TOT JOSE M,TOT PROT) Routine 08/21/2014 10:45 EST documented in this encounter Results * (ABNORMAL) SED. RATE:RHONA (08/21/2014 10:45 EST) Sed. Rate Rhona, External 16(A) 0 - 15 MM/HR [facility] Blood specimen (specimen) 08/21/2014 10:45 EST Mando Medina MD HEMATOLOGY & PF4 ORDERABLES [facility] * (ABNORMAL) HEMAGRAM AND DIFFERENTIAL (08/21/2014 10:45 EST) WBC, External 7.67 4.4 - 10.8 k/cumm [facility] RBC, External 5.18 4.50 - 6.00 m/cumm [facility] Hemoglobin, External 12.6(A) 13.5 - 17.5 g/dL [facility] HCT, External 40.7 40.0 - 50.0 % [facility] MCV, External 78.6(A) 80 - 95 fL [facility] MCH, External 24.3(A) 27.0 - 33.0 pg [facility] MCHC, External 31.0(A) 32.0 - 36.0 % [facility] PLT, External 377 130 - 400 x1000/uL [facility] RDW-CV, External 16.4(A) 11.8 - 14.1 % [facility] Neutrophils, External 66.9 40 - 74 % [facility] Lymphocytes, External 17.3(A) 19 - 44 % [facility] Monocytes, External 6.4 3.0 - 10.0 % [facility] Eosinophils, External 8.3(A) 1 - 7.0 % [facility] Basophils, External 0.4 0.0 - 2.0 % [facility] ABS Neutrophils, External 5.13 1.2 - 6.7 k/cumm [facility] ABS Lymphs, External 1.33 1.2 - 3.4 k/cumm [facility] ABS Monocytes, External 0.49 0.11 - 0.7 k/cumm [facility] ABS Eosinophils, External 0.64 0 - 0.7 k/cumm [facility] ABS Basophils, External 0.03 0.0 - 0.2 k/cumm [facility] Comment:Please see scan medi a in PRISM for further information Blood specimen (specimen) 08/21/2014 10:45 EST Mando Medina MD PACKAGES & DNA P ROBE ORDERABLES Performing Organization Address [facility] Co de Phone Number [facility] * (ABNORMAL) C-REACTIVE PROTEIN (08/21/2014 10:45 EST) C-Reactive Protein, External 0.75(A) 0.0 - 0.3 mg/dL [facility] Blood specimen (specimen) 08/21/2014 10:45 EST Mando Medina MD CHEMISTRY & BLOO D GAS ORDERABLES Performing Organization Address [facility] Co de Phone Number [facility] * (ABNORMAL) HEPATIC FUNCTION PANEL (ALB,ALK PHOS,ALT,AST,DBIL,TOT JOSE M,TOT PROT) (08/21/2014 10:45 EST) Albumin, External 3.8 3.4 - 5.0 g/dL [facility] Total Protein, External 7.5 6.4 - 8.2 g/dL [facility] Alkaline Phosphatase, External 127(A) 46 - 116 U/L [facility] ALT, External 26 12 - 78 U/L [facility] AST, External 22 15 - 37 U/L [facility] Unconjugated Bilirubin Not given [facility] Conjugated Bilirubin, External 0.09 0.00 - 0.20 mg/dL [facility] Bilirubin, Total, External 0.27 0.2 - 1.0 mg/dL [facility] Comment:Please see scan medi a in PRISM for further information Blood specimen (specimen) 08/21/2014 10:45 EST Mando Medina MD CHEMISTRY & BLOO D GAS ORDERABLES [facility] documented in this encounter Visit Diagnoses Not on filedocumented in this encounter Care Teams Chief Investment Officer Relationship Specialty Start Date End Date Tristan Collins MD PCP - General 06/26/11 05/12/23 documented as of this encounter
--- OUTSIDE RECORDS SUMMARY | 2024-02-29 08:20 | XMS_ITS | Encounter Summary ---
Author Organization [facility] Address [address] [place] [address] Care Team Providers Care Tacking Stitch Remover Name Role Phone Tristan Collins MD Primary Care Provider Unav ailable Reason for Visit * Reason Onset Date Comments Labs Only 11/16/2014 Encounter Details Date Type Department Care Team (Late st Contact Info) Description 11/16/2014 Telephone [facility] Infectious Disease - [address] [phone] Mando Medina MD [address] [facility], [address] [place] [phone] Labs Only Social History Tobacco [...] Telephone Encounter - Janina Leo RN - 11/24/[address] Medina, lab orders printed and faxed to [facility]. Patient notified. Janina Leo RN * Telephone Encounter - Janina Leo RN - 11/16/2014 1028 EDT Patient asking if he can have labs drawn to assess for infection/inflammation prior to appointment with Dr. Medina. Explained to patient that we will review this with Dr. Medina when he is back next week and give the patient a call back to let him know the plan. Patient requests for these lab orders to be faxed to [facility] (phone #: ). Will fax these if/when orders obtained. Janina Leo RN * Telephone Encounter - Sonia Bowman - 11/16/2014 1013 EDT Patient feels he should have another set of bloodwork done before next Dr Medina appt. He would like a call back from a nurse to talk about this. [phone]. documented in this encounter Plan of Treatment Not on file documented as of this encounter Visit Diagnoses Diagnosis Unspecified osteomyelitis, other specified site- Primary documented in this encounter Orders Lab Orders Without Results Count Last Ordered D ate First Ordered Date BUN 1 11/24/2014 C-REACTIVE PROTEIN 1 11/24/2014 CREATININE 1 11/24/2014 HEMAGRAM AND DIFFERENTIAL 1 11/24/2014 documented in this encounter Care Teams Tacking Stitch Remover Relationship Specialty Start Date End Date Tristan Collins MD PCP - General 06/26/11 05/12/23 documented as of this encounter
--- OUTSIDE RECORDS SUMMARY | 2024-02-29 08:20 | XMS_ITS | Encounter Summary ---
Author Organization [facility] Address [address] [place] [address] Care Team Providers Care Template Maker Name Role Phone Tristan Collins MD Primary Care Provider Unav ailable Encounter Details Date Type Department Care Team (Late st Contact Info) Description 04/11/2015 Phlebotomy Only [facility] [address] [place] [address] Guest Room Inspector, Outpatient Diarrhea (Primary Dx) Social History Tobacco Use Types [...] Procedure Name Priority Date/Time Associated Diagnosis Comments C. DIFFICILE PCR Routine 04/11/2015 13:5 2 EDT Diarrhea documented in this encounter Results * (ABNORMAL) C. DIFFICILE MOLECULAR DETECTION (04/11/2015 13:52 EDT) Result POSITIVE FOR C.DIFFICILE TOXIN BY PCR. Presumptive negative for 027, NAP1, BI strain.(AA) 04/11/2015 17:43 EDT [facility] Stool specimen (specimen) STOOL SPECIMEN / Unknown 04/11/2015 13:52 EDT 04/11/2015 14:40 EDT Keyshawn Bui MD MICROBIOLOGY - GEN ERAL ORDERABLES [facility] [address] [place] [address] documented in this encounter Visit Diagnoses Diagnosis Diarrhea- Primary documented in this encounter Care Teams Template Maker Relationship Specialty Start Date End Date Tristan Collins MD PCP - General 06/26/11 05/12/23 documented as of this encounter
--- OUTSIDE RECORDS SUMMARY | 2024-02-29 08:20 | XMS_ITS | Encounter Summary ---
Author Organization [facility] Address [address] [place] [address] Care Team Providers Care Metal Dresser Name Role Phone Tristan Collins MD Primary Care Provider Unav ailable Encounter Details Date Type Department Care Team (Late st Contact Info) Description 05/23/2015 Phlebotomy Only [facility] [address] [place] [address] Apprenticeship Representative, Outpatient Osteomyelitis ([facility]) ([facility]); Dyspepsia Social History Tobacco Use Types Packs/Day Years [...] Procedure Name Priority Date/Time Associated Diagnosis Comments HEPATIC FUNCTION PANEL (ALB,ALK PHOS,ALT,AST,DBIL,T OT JOSE M,TOT PROT) Routine 05/23/2015 9:51 EDT Dyspepsia documented in this encounter Results * (ABNORMAL) HEPATIC FUNCTION PANEL (ALB,ALK PHOS,ALT,AST,DBIL,TOT JOSE M,TOT PROT) (05/23/2015 9:51 EDT) Albumin 4.1 3.4 - 4.9 g/dl 05/23/2015 10:49 EDT [facility] Total Protein 7.4 6.3 - 8.2 g/dl 05/23/2015 10:49 EDT [facility] Total Alkaline Phosphatase 85 38 - 126 U/L 05/23/2015 10:49 T [facility] ALT 89(H) 21 - 72 U/L 05/23/2015 10:49 [facility] AST 142(H) 15 - 46 U/L 05/23/2015 10:49 T [facility] Unconjugated Bilirubin 0.3 0.0 - 1.1 mg/dl 05/23/2015 10:49 [facility] Conjugated Bilirubin 0.0 0.0 - 0.3 mg/dl 05/23/2015 10:49 [facility] Bilirubin, Total 0.9 <1.4 mg/dl 05/23/20 15 10:49 [facility] Blood specimen (specimen) BLOOD SPECIMEN / Unknown 05/23/2015 9:51 EDT 05/23/2015 10:03 EDT Keyshawn Bui MD CHEMISTRY & BLOOD GAS ORDERABLES [facility] [address] [place] [address] documented in this encounter Visit Diagnoses Diagnosis Osteomyelitis ([facility]) Unspecified osteomyelitis, site unspecified Dyspepsia Dyspepsia and other specified disorders of function of stomach documented in this encounter Orders Lab Orders Without Results Count Last Ordered D ate First Ordered Date BUN 1 05/23/2015 C-REACTIVE PROTEIN 1 05/23/2015 CREATININE 1 05/23/2015 HEMAGRAM AND DIFFERENTIAL 1 05/23/2015 documented in this encounter Care Teams Metal Dresser Relationship Specialty Start Date End Date Tristan Collins MD PCP - General 06/26/11 05/12/23 documented as of this encounter
--- OUTSIDE RECORDS SUMMARY | 2024-02-29 08:21 | XMS_ITS | Encounter Summary ---
Author Organization [facility] Address [address] [place] [address] Care Team Providers Care Dress Marker Name Role Phone Tristan Collins MD Primary Care Provider Unav ailable Reason for Visit * Reason Comments Back Pain Encounter Details Date Type Department Care Team (Latest Contact Info) Description 09/16/2011 11:15 EST Office Visit [facility] Interventional Pain [address] [place], [place] [id number] Unknown, Provider, Teri Hemphill MD [address] [facility] [address] [place] [address] Anabell Womack MD [place], [place] [id number] Left groin pain; Low back pain; Radicular leg pain; Degeneration of lumbar or lumbosacral intervertebral disc Social History Tobacco Use Types Packs/Day Years [...] Sign Reading Time Taken Comments Blood Pressure 173/115 09/16/2011 1052 EST Pulse 73 09/16/2011 1052 EST Temperature 36.8 ??C (98.2 ??F) 09/16/2011 1052 EST Respiratory Rate 16 09/16/2011 1052 EST Oxygen Saturation - - Inhaled Oxygen Concentration - - Weight 107 kg (236 lb) 09/16/2011 1052 EST Height 167.6 cm (5' 6) 09/16/2011 1052 EST Body Mass Index 38.09 09/16/2011 1052 EST documented in this encounter Ordered Prescriptions Prescription Sig Dispensed Refills Start Date End Da te gabapentin (NEURONTIN) 300 mg capsule Take 1 Cap by mouth 3 times daily. Take one tablet at night for 3-5 days, then titrate slowly up to TID dosing as tolerated and/or to effect. 90 Cap 2 09/16/2011 11/30/2020 documented in this encounter Progress Notes * Teri Hemphill - 09/16/2011 1122 EST [facility] Follow up visit Patient Name: Yasmani Glaser : 1970 Date of Service: 09/16/2011 Chief Complaint: Chief Complaint Patient presents with ??? Back Pain Dairy Chemist: Teri Hemphill MD Designer/Writer: none Procedure: Follow up visit Interval History: Mr. Yasmani Glaser returns to clinic today at the initial request of Derek Veras for continued evaluation and possible injection treatment of her chronic low back pain and leg pain. The patient was last seen one month ago for left L5-S1 TFESI. He received no relief from this procedure. The functional capacity that is most limited secondary to the pain is sitting for long periods of time. He does note improved function allowing greater comfort and ability to tolerate these activities. The baseline presentation is changed since our last visit. He states he has the same left sided hiplateral thigh and lateral calf pain. He also has bilateral L>>R groin pain and new this morning with the [address] to the appointment today he now has a new right sided leg pain that extends to his lateral thigh and calf region. Patient reports 8/10 for his pain scale today. Other modalities of treatments including medication management are not helpful at this point. He recently started trazadone for sleep which has not been helpful. He has also seen Riki in the interim and has an EMG scheduled with Dr. Rodriguez this Thursday. No Known Allergies Current Outpatient Prescriptions Medication Sig Dispense Refill ??? trazodone (DESYREL) 100 mg tablet Take 100 mg by mouth at bedtime. ??? tramadol (ULTRAM) 50 mg tablet Take 50 mg by mouth 3 times daily. ??? gabapentin (NEURONTIN) 300 mg capsule Take 1 Cap by mouth 3 times daily. Take one tablet at night for 3-5 days, then titrate slowly up to TID dosing as tolerated and/or to effect. 90 Cap 2 ??? oxycodone-acetaminophen (PERCOCET) 5-325 mg per tablet Take 1 Tab by mouth 3 times daily as needed for Pain. 60 Tab 0 ??? chlorthalidone (HYGROTON) 25 mg tablet Take 25 mg by mouth daily. ??? ibuprofen (MOTRIN) 800 mg tablet Take 800 mg by mouth every 8 hours as needed. ??? omeprazole (PRILOSEC) 20 mg capsule Take 20 mg by mouth daily. ??? Multivitamins with Minerals Tab Take 1 Tab by mouth daily. ??? Potassium Gluconate 550 mg Tab Take 1 Tab by mouth daily. ROS: He has had a recent 9 lb weight loss since our last visit. CONSTITUTIONAL: Patient does not report fevers, nausea, vomiting. NEURO/EYES: Patient does not report headaches, dizziness, or visual changes. HEME: Patient does not report any known coagulopathies. PULM/CARDIAC: Patient does not report shortness of breath or chest pain. GI/: Patient does not report bowel or bladder incontinence. Physical Exam: Vitals: Blood pressure 173/115, pulse 73, temperature 36.8 ??C (98.2 ??F), temperature source Tympanic, resp. rate 16, height 167.6 cm (66), weight 107.049 kg (236 lb). PE: GEN: Patient is an otherwise pleasant obese white male. Patient is in NAD. Alert and oriented x3 and appropriate in conversation today. Ambulates without an assist device. Patient has moderate antalgic gait. SKIN: WNL . No signs of infection. No hair shanice or abrasions in the lumbar paraspinous region. ENT: Normocephalic, atraumatic. NEURO: Motor strength is 5/5 throughout all motor groups in bilateral lower extremities. Sensation is intact and symmetrical to light touch throughout bilateral lower extremities. DTR's 0/4 at bilateral patella and achilles. EXTREMITIES: No clubbing, cyanosis, or edema. MUSCULOSKELETAL: Positive Facet loading maneuvers with extension of lumbar spine. Negative SLR for radicular pain but it does reproduce left sided low back pain. Right is negative Negative Patricks test bilaterally for LBP. Positive reproduction of hip pain with this maneuver onthe left. Positive LEFT hip internal rotation and adduction. Nontender to palpation of the bilateral GTB. PULM: Non labored breathing. Assessment: Patient is a 41 y.o. year old male with a chronic pain syndrome and a primary complaintof low back left >>>> right radicular and groin pain secondary to the associated diagnoses below. Encounter Diagnoses Name Primary? Left groin pain ??? Low back pain ??? Radicular leg pain ??? Degeneration of lumbar or lumbosacral intervertebral disc Plan: Return to clinic for possible diagnostic and therapeutic injection therapy after completion of his EMG the end of this week. This may include left intraarticular hip injection vs. Repeat LESI with midline approach vs. Diagnostic lumbar MBB. Looking for some direction with the EMG to help determine any main pain generation sources for the multiple complaints. Started Neurontin 300 mg: Take one tablet at night for 3-5 days, then titrate slowly up to TID dosing as tolerated and/or to effect. Encouraged continued weight loss activities, may consider aqua therapy as well. * Lillie Oneill RN - 09/16/2011 1056 EST [facility] Rooming Note Does patient have a Principal Developer? Yes Is patient NPO? (Solids since midnight & liquids for 4 hrs) na Blood Thinners: Is patient on Blood Thinners? Stopped motrin If yes, taking? If stopped, who authorized stopping? Related comments: Infections: Any recent infections, fever of illnesses? no If on antibiotics, is it 7-10 days past the date of completion of antibiotics? no : (for females of child-bearing age) Is there a chance current ? Other: documented in this encounter Plan of Treatment Not on file documented as of this encounter Visit Diagnoses Diagnosis Left groin pain Abdominal pain, left lower quadrant Low back pain Lumbago Radicular leg pain Thoracic or lumbosacral neuritis or radiculitis, unspecified Degeneration of lumbar or lumbosacral intervertebral disc documented in this encounter Historical Medications * This list may reflect changes made after this encounter. Medication Sig Dispensed Refills Start Date End Date tramadol (ULTRAM) 50 mg tablet Take 50 mg by mouth 3 times daily. 12/07/2014 trazodone (DESYREL) 100 mg tablet Take 100 mg by mouth at bedtime. 12/07/2014 added in this encounter Care Teams Dress Marker Relationship Specialty Start Date End Date Tristan Collins MD PCP - General 06/26/11 05/12/23 documented as of this encounter
--- OUTSIDE RECORDS SUMMARY | 2024-02-29 08:21 | XMS_ITS | Encounter Summary ---
[place] [address] Care Team Providers Care Button And Buckle Maker Name Role Phone Tristan Collins MD Primary Care Provider [phone] Reason for Visit * Reason Onset Date Comments Medication Refill 02/18/2012 dilaudid 2 mg tabs. Encounter Details Date Type Department Care Team (Late st Contact Info) Description 02/18/2012 Refill [place] [phone] Parveen Salas, RN Social History Tobacco Use Types Packs/Day Years Used Date Smoking Tobacco: Never Smokeless Tobacco: Current Chew Sex and Gender Information Value Date Recorded Sex Assigned at Not on file Gender Identity Not on file Sexual Orientation Not on file documented as of this encounter Miscellaneous Notes * Telephone Encounter - Parveen Salas RN - 02/18/2012 3:53 PM EDT Received call from patient requesting refill of Dilaudid 2 mg tabs, he states that he is taking 2 tabs Q 6 hours. Patient is s/p 12/31/ L4-5-S1 TLIF and ICBG. Above request discussed with Dr. Land, he defers any further pain management to PCP at this point as patient is more than 6 weeks post op. Patient was contacted and informed of the above. Discussed contacting PCP office to inform them of the above, patient is in agreement with that plan. A call was placed to Dr. Collins's office, spoke with Lupe. She was informed of the above and willpass information to nursing staff and provider. Patient was contacted and informed, he will f/u with PCP's office later today if he has not heard from them. documented in this encounter Plan of Treatment Not on file documented as of this encounter Visit Diagnoses Not on filedocumented in this encounter Care Teams Button And Buckle Maker Relationship Specialty Start Date End Date Tristan Collins MD [address] [place] [address] PCP - General 10/30/11 07/06/18 documented as of this encounter
--- OUTSIDE RECORDS SUMMARY | 2024-02-29 08:21 | XMS_ITS | Encounter Summary ---
Author Organization [facility] Address [address] [place] [address] Care Team Providers Care Sonography Technologist Name Role Phone Tristan Collins MD Primary Care Provider Unav ailable Reason for Visit * Reason Onset Date Comments Pharmacy 08/15/2014 Encounter Details Date Type Department Care Team (Late st Contact Info) Description 08/15/2014 Telephone [facility] Infectious Disease - [address] [phone] Mando Medina MD [address] [place] [address], [address] [place] [address] Pharmacy Social History Tobacco Use Types Packs/Day Years [...] Telephone Encounter - Janina Leo RN - 08/15/2014 6920 EST Gave verbal orders to Tomi Wayne per Dr. Medina's plan for patient indicated in last note: Continue cefazolin 2 g IV q.8 h. for the next 4 weeks. Janina Leo RN * Telephone Encounter - Adriana Tarango - 08/15/2014 1529 EST Tomi nevin Wayne stated going by orders from [facility] they have dispensed last dose of IV antibiotics(Cefazolin). Stated patient advised them that they have been extended by Dr Medina. Stated he will need an order. He can be reached at [phone]. documented in this encounter Plan of Treatment Not on file documented as of this encounter Visit Diagnoses Not on filedocumented in this encounter Care Teams Sonography Technologist Relationship Specialty Start Date End Date Tristan Collins MD PCP - General 06/26/11 05/12/23 documented as of this encounter
--- OUTSIDE RECORDS SUMMARY | 2024-02-29 08:21 | XMS_ITS | Encounter Summary ---
Author Organization [facility] Address [address] [place] [address] Care Team Providers Care Copywriting Intern Name Role Phone Tristan Collins MD Primary Care Provider Unav ailable Reason for Visit * Reason Comments Back Pain left sided low back and left buttock Encounter Details Date Type Department Care Team (Latest Contact Info) Description 10/09/2011 14:00 EDT Office Visit [facility] Interventional Pain [address], [place] [phone] Mirna Koch MD [address] [facility] [address] [place] [address] Sacral back pain; Low back pain Social History Tobacco Use Types Packs/Day [...] Sign Reading Time Taken Comments Blood Pressure 115/81 10/09/2011 1504 EDT Pulse 67 10/09/2011 1504 EDT Temperature 36.6 ??C (97.9 ??F) 10/09/2011 1347 EDT Respiratory Rate 16 10/09/2011 1504 EDT Oxygen Saturation - - Inhaled Oxygen Concentration - - Weight 107 kg (236 lb) 10/09/2011 1347 EDT Height 167.6 cm (5' 6) 10/09/2011 1347 EDT Body Mass Index 38.09 10/09/2011 1347 EDT documented in this encounter Patient Instructions * Patient Instructions* Virgen Millan RN - 10/09/2011 14:57 EDT [facility] [place] [address] Patient Instructions You have had your left Sacroiliac Joint Injection. The purpose of this procedure has [...] office immediately. If you develop increasingly severe neck/back pain, continued numbness or weakness of the arms/legs or changes in your bladder or bowel functions, please call our office at once. Instructions for follow-up Patient Education Topic: Method: Handout and Verbal Taught to: Patient Barriers: None Outcomes: verbalized understanding Signature:VIRGEN MILLAN RN If you have any questions about your block, please call documented in this encounter Progress Notes * Luiza Garza DO - 10/09/2011 1425 EDT Patient Name: Yasmani Glaser : 1970 Date of Service: 10/09/2011 Parts Counter Representative: Mirna Koch MD Subassembler: Luiza Garza DO Procedure: left sacroiliac joint injection Diagnosis: Sacroiliac joint dysfunction Chronic low back pain Interval History Mr. Glaser presents at the request of Derek Veras for evaluation and treatment of his left sacroiliac joint pain. The pain is described as aching and burning and constant in character. The average pain intensity is 8/10 and is aggravated by flexion and external rotation of theL hip. Sitting in a reclined position alleviates the pain. Patient also has complaints of intermittent burning pain through his buttocks that radiates down his posterior leg and into the bottom of his foot. Previous L5/S1 TFepidural injection in July was nonresponsive. EMG in August was essentially negative. Response to conservative measures has been marginal and patient discontinued his gabapentin two weeks ago because he did not like how it made him feel. Allergies: No Known Allergies Review of Systems: Gen: Increased dizziness with rapid standing that patient attributes to possible sinus infection (no fever/chills) Neuro: Lower back pain with radiation into LLE and bottom of foot. Admits to difficulty with lumbarextension. Pain in L buttock. Physical Examination: Gen: A&O, pleasant and in NAD Neuro: B/l LE sensation to light touch grossly intact, b/l motor decreased on L initially until patient moves through own points of pain and then b/l equal and intact. Pain down posterior LLE with extension of lower back- positive Spurling's test. Skin: WNL. No signs of infection at the lumbar paraspinous region. Assessment: Chronic L>R back pain Sacroiliac joint dysfunction Plan: Perform therapeutic left sacroiliac joint injection Follow up: as needed for routine follow up and within 24 hrs by telephone to report results of diagnostic injection The patient plans to follow-up with the [facility] and we will be available forfurther evaluation and/or injections as necessary. Procedure: The patient gave informed written consent to proceed with this procedure following a detailed discussion of the risks and benefits associated with sacroiliac joint injection. The patient was then placed in the prone position, the skin over the lumbosacral area was prepped with chlorhexadine, and the site was draped with sterile towels. Strict sterile technique was maintained throughout the procedure. A anthony moment was performed with full staff present to identify the patient, verify the procedure being performed, and review allergies. Flouroscopy was used to identify and align the left sacroiliac joint. The skin and subcutaneous tissue over this level was anesthetized by injection of 2% lidocaine . A 22 guage 5.0 inch spinal needle was inserted into the posterioer inferior aspect of the joint under fluoroscopic guidance by coaxial technique. After negative aspiration, 40 mg Depo-Medrol and 4 ml 0.25% Bupivacaine were injected. The needle was then flushed and withdrawn. The patient tolerated the procedure well, there were no apparent complications, and he was discharged in stable condition. Written and verbal discharge instructions were reviewed with the patient prior to discharge Attending attestation: The patient was seen and discussed with the resident/fellow. I agree with the findings and plan of care documented in the resident's/fellow's note. In addition, I was present and participated during the entire procedure. MIRNA KOCH MD * Christina Willett - 10/09/2011 6189 EDT [facility] Rooming Note Does patient have a Map Drafter? yes Is patient NPO? (Solids since midnight & liquids for 4 hrs) na Blood Thinners: Is patient on Blood Thinners? no If yes, taking? If stopped, who authorized stopping? Related comments: Infections: Any recent infections, fever of illnesses? Cold, dizzy If on antibiotics, is it 7-10 days past the date of completion of antibiotics? no : (for females of child-bearing age) Is there a chance current ? na Other: documented in this encounter Miscellaneous Notes * Scanned Note-Null - HAIRSPRING TRUING INSPECTOR, SCAN 2 - 10/10/2011 1235 EDT documented in this encounter Plan of Treatment Not on file documented as of this encounter Visit Diagnoses Diagnosis Sacral back pain Disorders of sacrum Low back pain Lumbago documented in this encounter Care Teams Copywriting Intern Relationship Specialty Start Date End Date Tristan Collins MD PCP - General 06/26/11 05/12/23 documented as of this encounter
--- OUTSIDE RECORDS SUMMARY | 2024-02-29 08:21 | XMS_ITS | Encounter Summary ---
Author Organization [facility] Address [address] [place] [address] Care Team Providers Care Magazine Feeder Name Role Phone Tristan Collins MD Primary Care Provider Unav ailable Reason for Visit * Reason Comments Back Pain Encounter Details Date Type Department Care Team (Late st Contact Info) Description 10/24/2011 11:30 EDT Office Visit [facility] Spine Program - [address] [place] [address] Derek Veras PA-C [address] [place] [address] [place] [address] Low back pain (Primary Dx) Social History Tobacco Use [...] on file documented as of this encounter Progress Notes * Derek Veras PA - 10/24/2011 1153 EDT Yasmani continues to have low back discomfort. Since our last visit, he has also undergone a sacroiliac injection with no change in his symptoms whatsoever. During that time he also had an occasion to feel a shooting pain down his left lower extremity to the back of his leg and calf. This occurred while walking down some stairs. He slipped, held onto the railing. His feet went out from under him and he landed on his buttocks and then he slowly went down the stairs on his buttocks. Since then maximohas had occasional symptoms in his left lower extremity, but his primary concern is his low back pain. He presents to discuss other options and has mentioned possibly seeing a surgeon to discuss his s urgical options. OBJECTIVE: His MRI reveals disk degeneration at 4-5 and 5-1, no clear disk herniation or nerve rootimpingement. He had EMG nerve conduction study performed by Dr Rodriguez that was negative. He has had nerve root injection with no change in his symptoms; in fact, he had an interval increase in his symptoms. Recently had an SI injection with no change. At this point, I have little else to offer. I suggested a functional temple program and he asked that I have his case reviewed by surgeon and I will do so. PLAN: 1. Review his case with a surgeon. 2. Recommend a functional temple program. 3. Continue current pain management regime. 4. He also felt that GABAPENTIN may have been making him a bit foggy. I suggested discontinuing themedication, reducing by 1 tab a day until gone. 5. We spent 15 minutes with 15 minutes of our time discussing symptoms, subjective complaints and reviewing his treatment options. documented in this encounter Plan of Treatment Not on file documented as of this encounter Visit Diagnoses Diagnosis Low back pain- Primary Lumbago documented in this encounter Care Teams Magazine Feeder Relationship Specialty Start Date End Date Tristan Collins MD PCP - General 06/26/11 05/12/23 documented as of this encounter
--- OUTSIDE RECORDS SUMMARY | 2024-02-29 08:21 | XMS_ITS | Encounter Summary ---
Author Organization [facility] Address [facility] [place] [address] Care Team Providers Care Clinical Research Coordinator Name Role Phone Tristan Collins MD Primary Care Provider [phone] Encounter Details Date Type Department Care Team (Latest Contact Info) Description 06/10/2012 12:33 PM EST - 06/10/2012 11:59 PM EST Hospital Encounter XRay at [address] [place] [address] CLINIC, Rodolfo Reveles MD [facility] [place] [address] L4-S1 PIF with L5-S1 L TLIF Discharge Disposition: Home Social History Tobacco Use Types Packs/Day Years Used Date Smoking Tobacco: Never Smokeless Tobacco: Current Chew Sex and Gender Information Value Date Recorded Sex Assigned at Not on file Gender Identity Not on file Sexual Orientation Not on file documented as of this encounter Medications at Time of Discharge Medication Sig Dispensed Refills Start Date End Date nortriptyline (PAMELOR) 75 mg capsuleIndications:Lumba r disc disease with radiculopathy Take 1 capsule by mouth nightly. 30 capsule 2 06/10/2012 pregabalin (LYRICA) 25 mg capsuleIndications:Lumba r disc disease with radiculopathy Take 1 capsule by mouth 2 times daily. 60 capsule 2 06/10/2012 traZODone (DESYREL) 100 mg tablet Take 100 mg by mouth nightly. multivitamin (THERAGRAN) tablet Take 1 tablet by mouth daily. POTASSIUM CHLORIDE ORAL Take 1,000 mg by mouth daily. acetaminophen (TYLENOL) 500 mg tablet Take 1,000 mg by mouth every 8 hours. citalopram (CELEXA) 20 mg tablet Take 20 mg by mouth daily. chlorthalidone (HYGROTEN) 50 mg tablet Take 25 mg by mouth daily. nabumetone (RELAFEN) 750 mg tabletIndications:Lumbar disc disease with radiculopathy Take 1 tablet by mouth 2 times daily for 30 days. 60 tablet 1 06/10/2012 07/10/2012 documented as of this encounter Plan of Treatment Not on file documented as of this encounter Procedures Procedure Name Priority Date/Time Associated Diagnosis Comments XR LUMBAR SPINE 2 OR 3 VIEWS Routine 06/10/2012 1:02 PM EST L4-S1 PIF with L5-S1 L TLIF documented in this encounter Results * XR lumbar spine 2 or 3 views (06/10/2012 1:02 PM EST) Anatomical Region Laterality Modality L-spine N/A Radiographic Celina ging 06/10/2012 1:02 PM EST Narrative 06/10/2012 2:57 PM EST Examination LSPINE 2 OR 3 VIEWS Clinical History Post-op ??back surgery Comparison 02/11/2012. Technique Findings Alignment of the lumbar spine is not significantly changed. ??Patient is status post L4-L5 and 5-S1 fusion. ??No peripheral lucency about the hardware to suggest loosening or infection. ??L5-S1 intervertebral disc spacer is in unchanged position. ??No significant change in position or alignment as compared to previous. ??Minor degenerative changes are noted in the lower thoracic spine at T11 and T12 with osteophytes and narrowing and mild intervertebral disc narrowing in the upper lumbar levels. Impression Procedure Note Alejandra Palacio MD - 06/10/2012 Examination LSPINE 2 OR 3 VIEWS Clinical History Post-op back surgery Comparison 02/11/2012. Technique Findings Alignment of the lumbar spine is not significantly changed. Patient isstatus post L4-L5 and 5-S1 fusion. No peripheral lucency about the hardware to suggest loosening or infection. L5-S1 intervertebral disc spacer is in unchanged position. No significant change in position or alignment ascompared to previous. Minor degenerative changes are noted in the lower thoracicspine at T11 and T12 with osteophytes and narrowing and mild intervertebral disc narrowing in the upper lumbar levels. Impression Rodolfo Land MD IMG DX ORDERABLES documented in this encounter Visit Diagnoses Diagnosis L4-S1 PIF with L5-S1 L TLIF Sciatica documented in this encounter Care Teams Clinical Research Coordinator Relationship Specialty Start Date End Date Tristan Collins MD [address] [place] [address] PCP - General 10/30/11 07/06/18 documented as of this encounter
--- OUTSIDE RECORDS SUMMARY | 2024-02-29 08:21 | XMS_ITS | Encounter Summary ---
Author Organization [facility] Address [address] [place] [address] Care Team Providers Care Plate Grainer Apprentice Name Role Phone Tristan Collins MD Primary Care Provider Unav ailable Reason for Visit * Reason Onset Date Comments Nausea 08/14/2014 Encounter Details Date Type Department Care Team (Late st Contact Info) Description 08/14/2014 Telephone [facility] Infectious Disease - [address] [id number] Mando Medina MD [address] [facility], [address] [place] [address] Nausea Social History Tobacco Use Types Packs/Day [...] every 8 hours as needed for Nausea. 90 Tab 0 08/16/2014 09/28/2014 documented in this encounter Miscellaneous Notes * Telephone Encounter - Velia Ham RN - 08/16/[address] Medina via e-mail 08/16/14. 1. Stop Reglan 2. Begin Zofran 4 mg. Po q 8 hr. For nausea Order placed in Prism. Yasmani notified. * Telephone Encounter - Adriana Tarango - 08/14/2014 1023 EST Shiva stated he was started on Rifadin. Has increased nausea. Was not able to sleep last night. Is not vomiting. Is currently taking Metoclopramide 5 mg tablet every 8 hrs, prescribed by his surgeon. He is asking for script for stronger anti nausea medication. He can be reached at [phone]. documented in this encounter Plan of Treatment Not on file documented as of this encounter Visit Diagnoses Not on filedocumented in this encounter Care Teams Plate Grainer Apprentice Relationship Specialty Start Date End Date Tristan Collins MD PCP - General 06/26/11 05/12/23 documented as of this encounter
--- OUTSIDE RECORDS SUMMARY | 2024-02-29 08:21 | XMS_ITS | Continuity of Care Document ---
Author Organization [facility] Address [address] [place] [address] Care Team Providers Care Grades 1 Thru 6 Home Teacher Name Role Phone [facility] Psychiatrist Assessment No assessment recorded. Plan of Treatment Reminders Order Date Submit Date Provider Last Modified By Organization Details Last Modified Time Details Appointments [facility] 2023 07:50A M [facility] Not available Not available Not available [facility] 2023 07:40A M [facility] Not available Not available Not available Follow Up 20 2023 09:20A M VILMA GIVENS, Not available Not available Not available Lab CMP, serum or plasma [address] [facility] (Registration ), [address] [place] [address] [place], [address], 01/20/2024 10:53:58 lipid panel, blood [address] [facility] (Registration ), [address] [place] [address] [place], [address], 01/20/2024 10:53:58 CBC [address] [facility] (Registration ), [address] [place] [address] [place], [address], 01/20/2024 10:53:58 Referral None recorded. Procedures None recorded. Surgeries None recorded. Imaging US, abdomen, limited - f/u surveilla nce for cirrhosis 2023 024 [email or web address] [facility] - Radiology, [address], [place], [address], 02/19/2024 10:25:09 Medication Orders Ozempic 0.25 mg or 0.5 mg (2 mg/3 mL) subcutane ous pen injector 2023 024 LO [facility] [employer] [facility][id number], [address], [place], [place], [id number], 01/20/2024 08:39:05 Patient TargetsNo targets recorded. Patient Instructions Encounter Date Encounter Id Patient Instructions Last Modified By Organization Details Last Modified Time 01/20/2024 [id number] Call to schedule PT in [place] we are referring you to orthopedics Call to schedule a follow up with the pain clinic Get an automated home arm cuff - omron brand Check your blood pressure 2 times each week at various times of the day. Make sure that you have been sitting for at least 5 minutes before you check your blood pressure. Both feet should be flat on the ground and your arm should be at heart level. Please record your blood pressures in the blood pressure log. Please bring in readings and cuff to next appt Average should be 130/80 or lower increase walking and strengthening carmen Not available 01/20/2024 08:48:30 Reason for Referral Physical Therapist Referral for Osteoarthritis of knee also needs PT for chronic sciatica Referring Physician: Vilma Givens, Internal Medicine, Encounter Date: 09/21/2023 Orthopedic Surgeon Referral for Osteoarthritis of knee Chronic pain of left knee Referring Physician: Vilma Givens, Internal Medicine, Encounter Date: 01/22/2024 Problems Name Status Onset Date Resolution Date Notes Provider Name and Address Organization Details Recorded Time Obesity Active 2008 Problem Code: E66.9; Problem Code Type: ICD-10; VILMA GIVENS MD [address], [place], [address] , [facility]. 19:51:10 Pain in thoracic spine Active 2011 Problem Code: M54.9; Problem Code Type: ICD-10; MD [address], [place], [address] , [facility] 4 19:51:10 Tobacco user Active 2008 Problem Code: Z72.0; Problem Code Type: ICD-10; Sandee sams, [facility] 4 17:16:44 Seborrheic dermatitis Active 2015 Problem Code: L21.9; Problem Code Type: ICD-10; MD Danay [address], [place], [address] , [facility] 4 19:51:10 Pityriasis rosea Completed 201507/16/2016 Problem Code: L42; Problem Code Type: ICD-10; Not Available [facility] 3 05:28:13 Abnormal weight gain Completed 201710/03/2017 Problem Code: R63.5; Problem Code Type: ICD-10; Not Available [facility] 3 05:28:13 Cirrhosis of liver Active 2017 Problem Code: K74.60; Problem Code Type: ICD-10; Sandee Myersricardo sams, [facility] 4 17:16:18 Cough Completed 201810/04/2018 09/23/2018 - Comments only - Амрина Pierre [employer] - -CXR neg from 09/20 is reassuring -CONTINUE advair and albuterol- enc pt to get spacer and use it -START prednisone 40mg qd x5d Problem Code: R05; Problem Code Type: ICD-10; Not Available [facility] 3 05:28:13 Otitis media of left ear Completed 201810/07/2018 09/23/2018 - Comments only - Марина Pierre [employer] - -START augmentin 875mg bid x10 days -pt advised to call or come back in if sx worsen in next 24-48hrs or if they don't improve -rec supportive measures. Problem Code: H66.92; Problem Code Type: ICD-10; Not Available [facility] 3 05:28:13 Cough Completed 201811/01/2018 10/07/2018 - Comments only - Daksha Bejarano APRN [employer] - -Likely post viral and will be self-resolvin g -Rx for Tessalon Perles -Continue with supportive care: increased hydration, honey and hot tea for cough, increased humidity, rest. F/U if no improvement or worsening symptoms. Problem Code: R05; Problem Code Type: ICD-10; Not Available [facility] 3 05:28:14 Bilateral earache Completed 201810/25/2018 10/07/2018 - Comments only - Daksha Bejarano APRN, [employer] - -Treated with augmentin x 10 days on 09/23/18 -Continued ear canal discomfort and deep ear pain L>R -Exam reassuring. -COMPLETE Augmentin course -Rx for ciprodex drops -Warm compresses and acetaminophen for discomfort -F/U if sx do not continue to improve Problem Code: H92.03; Problem Code Type: ICD-10; Not Available [facility] 3 05:28:14 Portal hypertensive gastropathy Active [address], [place], [address] , [facility] 4 19:51:10 Major depression, single episode Active 2018 Problem Code: F32.9; Problem Code Type: ICD-10; Sandee sams, [facility] 4 17:16:32 Hypomagnesemi a Active 2018 Problem Code: E83.42; Problem Code Type: ICD-10; MD Danay [address], [facility] [address] , [facility] 4 19:51:09 Obstructive sleep apnea syndrome Active 2018 Problem Code: G47.33; Problem Code Type: ICD-10; MD Danay [address], [place], [address] , [facility] 4 19:51:10 Type 2 diabetes mellitus without complication Active 2019 Problem Code: E11.9; Problem Code Type: ICD-10; MD Danay [address]YA Dr, [facility] [id number] [place] [address] 4 19:51:10 Chronic alcoholism in remission Active 2019 Problem Code: F10.21; Problem Code Type: ICD-10; Sandee sams, [facility] 4 17:16:09 Viral screening Completed 202001/11/2021 Problem Code: Z11.59; Problem Code Type: ICD-10; Not Available [facility] 3 05:28:15 Vitamin D deficiency Active 2021 Problem Code: E55.9; Problem Code Type: ICD-10; MD Danay [address], [facility] [address] [place] [address] 4 19:51:10 Dyspnea Completed 202105/24/2022 Problem Code: R06.00; Problem Code Type: ICD-10; Not Available [facility] 3 05:28:16 Intermittent explosive disorder Active 2022 Problem Code: F63.81; Problem Code Type: ICD-10; MD Danay [address] Dr, [facility] [address] [facility] 4 19:51:10 Left side sciatica Active 2022 Problem Code: M54.32; Problem Code Type: ICD-10; MD Danay [address]YA Dr, [facility] [id number] [place] [address] 4 19:51:10 Bipolar disorder Active 2022 Problem Code: F31.9; Problem Code Type: ICD-10; Sandee sams [facility] 4 17:16:00 Dizziness and giddiness Completed 201812/05/2019 Problem Code: R42; Problem Code Type: ICD-10; Not Available [facility] 3 05:28:24 Essential hypertension Completed 200805/19/2022 Problem Code: I10; Problem Code Type: ICD-10; Not Available [facility] 3 05:28:24 Dizziness and giddiness Completed 202104/22/2022 Problem Code: R42; Problem Code Type: ICD-10; Not Available [facility] 3 05:28:25 Tobacco dependence syndrome Completed 200804/22/2023 Problem Code: 305.1; Problem Code Type: ICD-9; Not Available [facility] 3 05:28:26 Syncope and collapse Completed 201809/06/2019 Problem Code: R55; Problem Code Type: ICD-10; Not Available [facility] 3 05:28:27 Anorectal disorder Completed 201409/06/2019 Problem Code: K62.89; Problem Code Type: ICD-10; Not Available [facility] 3 05:28:27 Alcohol dependence Completed 200903/15/2019 Problem Code: F10.20; Problem Code Type: ICD-10; Not Available [facility] 3 05:28:27 Steatosis of liver Completed 202009/25/2021 Problem Code: K76.0; Problem Code Type: ICD-10; Not Available [facility] 3 05:28:28 Nausea Completed 201404/22/2022 Problem Code: R11.0; Problem Code Type: ICD-10; Not Available [facility] 3 05:28:28 Benign paroxysmal positional vertigo Completed 201812/05/2019 Problem Code: H81.10; Problem Code Type: ICD-10; Not Available [facility] 3 05:28:29 Pain of right shoulder joint Completed 201904/22/2022 Problem Code: M25.511; Problem Code Type: ICD-10; Not Available [facility] 3 05:28:29 Diarrhea Completed 201405/19/2022 Not Available [facility] 3 05:28:30 Fever Completed 201912/05/2019 Problem Code: R50.9; Problem Code Type: ICD-10; Not Available [facility] 3 05:28:30 Alcoholism Completed 200904/22/2023 Not Available [facility] 3 05:28:31 Hyperglycemia Completed 201703/15/2019 Problem Code: R73.9; Problem Code Type: ICD-10; Not Available [facility] 3 05:28:31 Prediabetes Completed 201904/22/2023 12/14/2020 - Comments only - Asia Ackerman APRN - [employer] today Problem Code: R73.03; Problem Code Type: ICD-10; Not Available [facility] 3 05:28:32 Chronic pancreatitis Completed 202111/21/2021 Problem Code: K86.1; Problem Code Type: ICD-10; Not Available [facility] 3 05:28:32 Skin finding Completed 201803/15/2019 Problem Code: R23.8; Problem Code Type: ICD-10; Not Available [facility] 3 05:28:32 Cholelithiasi s without obstruction Completed 202111/21/2021 Problem Code: K80.20; Problem Code Type: ICD-10; Not Available [facility] 3 05:28:32 Esophageal varices without bleeding Completed 202011/06/2021 Problem Code: I85.00; Problem Code Type: ICD-10; Not Available [facility] 3 05:28:33 Backache Completed 201104/22/2023 Not Available [facility] 3 05:28:34 Hyperlipidemi a screening Completed 202106/23/2022 Problem Code: Z13.220; Problem Code Type: ICD-10; Not Available [facility] 3 05:28:34 Disease of liver Completed 201803/15/2019 Problem Code: K76.9; Problem Code Type: ICD-10; Not Available [facility] 3 05:28:35 Anemia Completed 201804/22/2022 Problem Code: D64.9; Problem Code Type: ICD-10; Not Available [facility] 3 05:28:36 Liver function tests outside reference range Completed 201404/22/2023 Problem Code: R94.5; Problem Code Type: ICD-10; Not Available [facility] 3 05:28:36 Sudden visual loss Completed 201503/15/2019 Problem Code: H53.139; Problem Code Type: ICD-10; Not Available [facility] 3 05:28:37 Hypertensive disorder Completed 200804/22/2023 Not Available [facility] 3 05:28:37 Abdominal pain Completed 201704/22/2022 Problem Code: R10.9; Problem Code Type: ICD-10; Not Available [facility] 3 05:28:37 Alcohol abuse Completed 201904/22/2023 Problem Code: F10.10; Problem Code Type: ICD-10; Not Available [facility] 3 05:28:38 Nonalcoholic steatohepatit is Completed 201405/16/2020 Problem Code: K75.81; Problem Code Type: ICD-10; Not Available [facility] 3 05:28:38 Closed fracture of multiple left ribs Completed 202104/22/2022 Problem Code: S22.42xA; Problem Code Type: ICD-10; Not Available [facility] 3 05:28:39 Other idiopathic peripheral neuropathy NOS Active [address], [place], [address] , [facility]. 4 19:51:10 Pain of left knee joint Completed 202204/30/2023 Problem Code: M25.562; Problem Code Type: ICD-10; Not Available [facility] 4 05:37:04 Osteoarthriti s of knee Active 2022 Problem Code: M17.9; Problem Code Type: ICD-10; VILMA GIVENS MD [address], [place], [address] , [facility] 4 19:51:10 Lumbar radiculopathy Active 2023 [facility] 17:16:53 Lumbar radicular pain Active 2023 [facility] 4 17:16:51 Elevated blood-pressur e reading without diagnosis of hypertension Active 2023 VILMA GIVENS MD [address], [place], [address] [facility] 4 08:45:34 Problem Notes None recorded. Medical Equipment None Reported. Allergies No known drug allergies Medications Name Sig Start Date Stop Date Status Note LastModified by Organization Details LastModified Time amoxicill in 500 mg capsule Take 2 cap by mouth two times daily 07/23 completed Not Available Not Available Not Available Augmentin 875 mg-125 mg tablet Take 1 tab by mouth twice daily. 01/28 completed Not Available Not Available Not Available carvedilo l 25 mg tablet Take 1 tab by mouth daily 2015 active Not Available Not Available Not Avai lable carvedilo l 12.5 mg tablet Take 1 tablet by mouth twice a day 11/06 completed Not Available Not Available Not Available Celexa 10 mg tablet Take 1 tablet by mouth every night 06/06 completed Not Available Not Available Not Available nabumeton e 750 mg tablet 1 BID 01/31 completed Not Available Not Available Not Available citalopra m 40 mg tablet Take 1 tab by mouth daily 2013 active Not Available Not Available Not Avai lable trazodone 50 mg tablet TAKE 1/2 TO 1 TABLET BY MOUTH AT BEDTIME NEEDED FOR SLEEP 03/22 completed Not Available Not Available Not Available ketoconaz ole 200 mg tablet take TWO tablets one time 09/02 completed Not Available Not Available Not Available ibuprofen 800 mg tablet 1 TID 12/02 completed Not Available Not Available Not Available clarithro mycin 500 mg tablet Take 1 tab by mouth twice daily 09/05 completed Not Available Not Available Not Available naltrexon e 50 mg tablet 1 tablet once a day 11/06 completed Not Available Not Available Not Available Nicoderm CQ 21 mg/24 hr daily transderm al patch Apply 1 patch external ly daily to hairless area. Rotate skin sites 2017 active Not Available Not Available Not Avai lable ondansetr on HCl 4 mg tablet 1 po bid prn 11/21 completed Not Available Not Available Not Available prednison e 20 mg tablet take 2 tabs once a day for 5 day. 10/04 completed Not Available Not Available Not Available Prilosec 20 mg capsule,d elayed release 1 TAB QD 06/30 completed Not Available Not Available Not Available sertralin e 100 mg tablet Take 1 tablet by mouth once a day 09/25 completed Not Available Not Available Not Available thiamine HCl (vitamin B1) 100 mg tablet 07/09 completed Not Available Not Available Not Available chlorthal idone 25 mg tablet TAKE 1 TABLET BY MOUTH DAILY 01/14 completed Not Available Not Available Not Available hydrocodo ne 10 mg-acetam inophen 325 mg tablet Take 1 tab by mouth 2-3 times daily 07/21 completed Not Available Not Available Not Available omeprazol e 40 mg capsule,d elayed release Take 1 tab by mouth daily. 03/14 completed Not Available Not Available Not Available tramadol 50 mg tablet 1TAB qHS 03/07 completed Not Available Not Available Not Available triamcino lone acetonide 0.1 % topical cream Apply 1 a small amount to skin twice a day as needed 2021 active Not Available Not Available Not Avai lable amoxicill in 500 mg tablet TAKE 1 TABLET BY MOUTH THREE TIMES DAILY UNTIL GONE active Not Available Not Available No t Available lamotrigi ne 25 mg tablet Take 2 tablet by mouth once a day Start 2 tabs on 01/04/21. Continue to monitor for rash. 03/04 completed Not Available Not Available Not Available pantopraz ole 20 mg tablet,de layed release Take 1 tab by mouth twice a day 03/15 completed Not Available Not Available Not Available Aerochamb er MV spacer Use 2018 active Not Available Not Available Not Avai lable oxycodone -acetamin ophen 5 mg-325 mg tablet take 1 tab po q3hrs as needed for pain. 2014 active Not Available Not Available Not Avai lable Tessalon Perles 100 mg capsule 1 capsule every 8 hours as needed for cough 01/28 completed Not Available Not Available Not Available propranol ol 10 mg tablet TAKE 1 TABLET BY MOUTH TWICE DAILY active Not Available Not Available No t Available hydromorp ralph 2 mg tablet 1-2 tabs q 4-6 hrs prn 06/30 completed Not Available Not Available Not Available potassium chloride ER 20 mEq tablet,ex tended release(p art/cryst ) Take 1 capsule by mouth once a day 01/14 completed Not Available Not Available Not Available amitripty line 25 mg tablet 1 tab daily 01/22 completed Not Available Not Available Not Available magnesium oxide 400 mg (241.3 mg magnesium ) tablet Take 1 tablet by mouth once a day 01/26 completed Not Available Not Available Not Available lorazepam 0.5 mg tablet TAKE 1 TABLET BY MOUTH DAILY NEEDED FOR ANXIETY active Not Available Not Available No t Available trazodone 100 mg tablet TAKE 2 TABLETS BY MOUTH EVERY NIGHT AT BEDTIME active Not Available Not Available No t Available Celexa 20 mg tablet Take 1 tablet by mouth at bedtime 08/15 completed Not Available Not Available Not Available lithium carbonate 600 mg capsule TAKE 3 CAPSULES BY MOUTH EVERY NIGHT AT BEDTIME 09/21 completed Not Available Not Available Not Available Zofran ODT 4 mg disintegr ating tablet take 1 tab BID 09/[address] Romero Not Available Not Available Not Available Nicoderm CQ 14 mg/24 hr daily transderm al patch Apply 1 patch external ly daily to hairless area. Rotate skin sites 07/04 completed Not Available Not Available Not Available Magtab 84 mg tablet,ex tended release Take 1 tablet by mouth daily 01/04 completed Not Available Not Available Not Available pantopraz ole 40 mg tablet,de layed release Take 1 tablet by mouth once a day 2019 active Not Available Not Available Not Avai lable Prozac 20 mg capsule 1 qd 05/21 completed Not Available Not Available Not Available buspirone 10 mg tablet TAKE 1 TABLET BY MOUTH THREE TIMES DAILY 09/21 completed Not Available Not Available Not Available divalproe x ER 500 mg tablet,ex tended release 24 hr TAKE 3 TABLETS BY MOUTH AT BEDTIME. SWALLOW WHOLE active Not Available Not Available No t Available lidocaine 5 % topical patch Apply 1 patch to skin once a day as directed :on for 12 hours, off for 12 hours active Not Available Not Available No t Available Advair Diskus 250 mcg-50 mcg/dose powder for inhalatio n 1 puff 2 times a day 06/05 completed Not Available Not Available Not Available Magnesium -Oxide 400 mg tablet Take 1 tablet by mouth once a day 01/09 completed Not Available Not Available Not Available gabapenti n 300 mg capsule TAKE 3 CAPSULES BY MOUTH THREE TIMES DAILY active Not Available Not Available No t Available diclofena c sodium 75 mg tablet,de layed release 1 tab BID 05/28 completed Not Available Not Available Not Available folic acid 1 mg tablet Take 1 tab by mouth daily 07/09 completed Not Available Not Available Not Available ketoconaz ole 2 % topical cream apply to rash on low back dailiy 08/04 completed Not Available Not Available Not Available hydromorp ralph 4 mg tablet 1 tab q4h 12/07 completed Not Available Not Available Not Available lithium carbonate 300 mg tablet Take 1 tablet by mouth four times a day 05/25 completed [facility] Not Available Not Available Not Available sertralin e 50 mg tablet Take 1 tab by mouth daily 2013 active Not Available Not Available Not Avai lable Ambien 10 mg tablet 1 qd 05/21 completed Not Available Not Available Not Available lamotrigi ne 100 mg tablet TAKE 1 TABLET BY MOUTH TWICE DAILY. CONTINUE TO MONITOR FOR RASH 09/21 completed Not Available Not Available Not Available naproxen 500 mg tablet Take 1 tab by mouth twice daily as needed for pain 06/05 completed Not Available Not Available Not Available diazepam 5 mg tablet q12hrs prn 07/21 completed Not Available Not Available Not Available Flexeril 10 mg tablet 1 TAB TID 12/28 completed Not Available Not Available Not Available oxycodone 5 mg tablet Take 1 tablet by mouth three times a day as needed for pain 01/09 completed Not Available Not Available Not Available Augmentin 875 mg tablet 1tab twice daily 10/23 completed Not Available Not Available Not Available Lexapro 10 mg tablet 1 qd 10/31 completed Not Available Not Available Not Available aripipraz ole 10 mg tablet TAKE 1 TABLET BY MOUTH DAILY active Not Available Not Available No t Available Ciprodex 0.3 %-0.1 % ear drops,wili pension Instill 4 drops into affected ears twice daily for 7 days 01/28 completed Not Available Not Available Not Available acamprosa te 333 mg tablet,de layed release TAKE 2 TABLETS BY MOUTH THREE TIMES DAILY active Not Available Not Available No t Available duloxetin e 20 mg capsule,d elayed release 1 tab qd 05/28 completed Not Available Not Available Not Available gabapenti n 300 mg tablet 1 cap twice daily 2013 active Not Available Not Available Not Avai lable Duragesic 12 mcg/hr transderm al patch 1 q3d 10/18 completed Not Available Not Available Not Available Lyrica 50 mg capsule 1 TID 10/18 completed Not Available Not Available Not Available Multivita mins 1 tab daily 07/19 completed Not Available Not Available Not Available ProAir HFA 90 mcg/actua tion aerosol inhaler Inhale 1-2 puff as directed every four to six hours as needed 05/19 completed Not Available Not Available Not Available ProAir HFA 2p qid 07/19 completed Not Available Not Available Not Available Multivita l 1 tab qd 07/09 completed Not Available Not Available Not Available acetylcys teine 600 mg capsule TAKE 2 CAPSULES BY MOUTH IN THE MORNING AND AN ADDITION AL 2 CAPSULES IN THE AFTERNOO N-EARLY EVENING NEEDED FOR MOOD 09/21 completed Not Available Not Available Not Available Questran Light 4 gram oral powder 1-2 tablespo ons daily 07/09 completed Not Available Not Available Not Available diclofena c 1 % topical gel APPLY EXTERNAL LY TO THE AFFECTED AREA DIRECTED TWICE DAILY active Not Available Not Available No t Available cholecalc iferol (vitamin D3) 50 mcg (2,000 unit) tablet TAKE 1 TABLET BY MOUTH DAILY active Not Available Not Available No t Available OneTouch Delica Lancets 33 gauge TEST TWICE DAILY 2021 active Not Available Not Available Not Avai lable OneTouch Verio test strips TEST TWICE DAILY 2021 active Not Available Not Available Not Avai lable Jardiance 10 mg tablet TAKE 1 TABLET BY MOUTH EVERY DAY active Not Available Not Available No t Available OneTouch Verio Flex Meter 1 device twice a day Check BG in the morning before eating and once as needed through out the day. 2020 active Not Available Not Available Not Avai lable Ozempic 0.25 mg or 0.5 mg (2 mg/1.5 mL) subcutane ous pen injector Inject 0.25 mg every week by subcutan eous route. 01/19 completed Not Available Not Available Not Available Ozempic 1 mg/dose (4 mg/3 mL) subcutane ous pen injector INJECT 1MG UNDER THE SKIN DIRECTED active Not Available Not Available No t Available Ozempic 0.25 mg or 0.5 mg (2 mg/3 mL) subcutane ous pen injector INJECT 0.5 MG UNDER THE SKIN EVERY WEEK active Not Available Not Available No t Available Vitals Date Recorded Body height Body mass index (BMI) Body weight Body temperature Systolic blood pressure Diastolic blood pressure Provider Name and Address Organization Details Last Updated DateTime 4 162.306 cm 36 kg/m2 26347.8 1 g 97.6 [degF] 128 mm[Hg] 88 mm[Hg] ROBERTH RAMIREZ MA [facility] 4 08:28:52 Social History Question Answer Notes LastModified by Organizat ion Details LastModified Time Tobacco Smoking Status Never Smoker NORMAN Oliva, [facility] 09/21/2023 09:09:00 Would You Say That, In General, Your Health Is Fair [email or web address] Information not available 09/21/2023 How Often Does Anyone, Including Family, Physically Hurt You? Never [email or web address] Information not available 09/21/2023 How Often Does Anyone, Including Family, Insult Or Talk Down To You? Never [email or web address] Information no t available 09/21/2023 How Often Does Anyone, Including Family, Threaten You With Harm? Never [email or web address] Information not available 09/21/2023 How Often Does Anyone, Including Family, Scream Or Curse At You? Never [email or web address] Information not available 09/21/2023 Within The Past 12 Months, You Worried That Your Food Would Run Out Before You Got Money To Buy More. Never True [email or web address] Information n ot available 09/21/2023 Within The Past 12 Months, The Food You Bought Just Didn't Last And You Didn't Have Money To Get More. Never True [email or web address] Information n ot available 09/21/2023 How Hard Is It For You To Pay For The Very Basics Like Food, Housing, Medical Care, And Heating? Would You Say It Is: Somewhat Hard [email or web address] Information not available 09/21/2023 In The Past 12 Months, Has Lack Of Reliable Transportation Kept You From Medical Appointments, Meetings, Work Or From Getting Things Needed For Daily Living? No [email or web address] Information not available 09/21/2023 What Is Your Housing Situation Today? I Have Housing. [email or web address] Information not available 09/21/2023 How Often In The Past Year Have You Used Marijuana (including Smoking, Vaping, Dabbing, Or Edibles)? 2-4 Times Per Month [email or web address] Information not available 09/21/2023 How Often In The Past Year Have You Used Prescription Medications That Were Not Prescribed To You? Never [email or web address] Information n ot available 09/21/2023 How Often In The Past Year Have You Taken Your Own Prescription Medication More Than The Way It Was Prescribed Or For Different Reasons Than Its Intended Purpose? Never [email or web address] Information no t available 09/21/2023 How Often In The Past Year Have You Used Other Drugs (for Example, Heroin, Cocaine, Meth, Salvia, Inhalants)? Never [email or web address] Information not available 09/21/2023 Have You Ever Used IV Drugs? No [email or web address] Information not available 09/21/2023 Date Of Most Recent SBINS 09/21/2023 [email or web address] Information not available 09/21/2023 What Was The Date Of Your Most Recent Tobacco Screening? 09/21/2023 [email or web address] Information not available 09/21/2023 Do You Or Have You Ever Used Smokeless Tobacco? Currently Uses Moist Powdered Tobacco Information not available 09/21/2023 Do You Or Have You Ever Used Any Other Forms Of Tobacco Or Nicotine? Yes [email or web address] Information not available 09/21/2023 Sex: Male Functional Status None recorded. Mental Status None recorded. Family History Relationship Description Onset Age of this Age Resolved Age Notes Mother Family history of Hypertension Notes:*Problem: Mother: niles amin, b. 1944, HTN, AODM Father: luis, . 1941, HTN, CAD (s/p [place]) Sisters: none Brothers: 1, b. 1973, overwgt Children: 1 Family History of: Hypertension: yes Hyperlipidemia: no Coronary heart disease: yes Diabetes mellitus: yes, both sides of family Breast cancer: no Colorectal cancer: no Alcoholism: no Mental illness: no Other: no Medical History No medical history recorded. Immunizations Vaccine Type Date Status Provider Name and Address Organization Details Recorded Time Tdap 11/20/[address], [place], [address], [facility]. 11/21/2023 20:20:16 Hep A-Hep B 09/15/2016 completed Not Available [facility] 06/05/2023 05:03:12 Hep A-Hep B 10/13/2016 completed Not Available [facility] 06/05/2023 05:03:13 Tdap 10/07/2013 completed Not Available [facility] 05:03:13 Novel [id number], all formulations 08/20/2009 completed Not Available [facility] 06/05/2023 05:03:13 Td(adult) unspecified formulation 07/27/1989 completed Not Available [facility] 06/05/2023 05:03:13 Td(adult) unspecified formulation 03/26/2004 completed Not Available [facility] 06/05/2023 05:03:13 Influenza, split virus, quadrivalent, PF 03/15/2016 completed Not Available [facility] 06/05/2023 05:03:13 Influenza, split virus, quadrivalent, PF 04/22/2022 completed Not Available [facility] 06/05/2023 05:03:14 Influenza, split virus, quadrivalent, PF 06/01/2019 completed Not Available [facility] 06/05/2023 05:03:14 Influenza, split virus, quadrivalent, preservative 08/19/2018 completed Not Available [facility] 06/05/2023 05:03:14 zoster recombinant 01/26/2023 completed Not Available [facility] 06/05/2023 05:03:14 zoster recombinant 05/30/2022 completed Not Available [facility] 06/05/2023 05:03:14 COVID-19, mRNA, LNP-S, PF, 100 mcg/0.5mL dose or 50 mcg/0.25mL dose 11/21/2020 completed Not Available [facility] 06/05/2023 05:03:14 COVID-19, mRNA, LNP-S, PF, 100 mcg/0.5mL dose or 50 mcg/0.25mL dose 12/19/2020 completed Not Available [facility] 06/05/2023 05:03:15 COVID-19, mRNA, LNP-S, PF, 100 mcg/0.5mL dose or 50 mcg/0.25mL dose 07/23/2021 completed Not Available [facility] 06/05/2023 05:03:15 Pneumococcal conjugate PCV20, polysaccharide [id number] conjugate, adjuvant, PF 04/22/2022 completed Not Available [facility] 06/05/2023 05:03:15 COVID-19, mRNA, LNP-S, bivalent, PF, 30 mcg/0.3 mL dose 04/22/2022 completed Not Available [facility] 06/05/20 05:03:15 pneumococcal polysaccharide PPV23 09/15/2016 completed Not Available [facility] 2022 05:03:15 Hep B, adult 08/19/2018 completed Not Available [facility] 06/05/2023 05:03:15 influenza, unspecified formulation 06/25/2011 completed Not Available [facility] 06/05/2023 05:03:16 Influenza, split virus, quadrivalent, PF 04/22/2023 completed Not Available [facility] 08/07/2023 05:33:10 COVID-19, mRNA, LNP-S, PF, francisco-sucrose, 30 mcg/0.3 mL 05/25/2023 completed Not Available [facility] 08/07/2023 05:33:10 Past Encounters Encounter ID Performer Location Encounter Start Date Encounter Closed Date Diagnosis/Indication Diagnosis SNOMED-CT Code [id number] VILMA GIVENS MD [address] [address] 01/20/2024 08:21:12 01/20/2024 08:53:36 Obesity 382615902 Osteoarthr itis of knee 928371336 Cirrhosis of liver 007 Left side sciatica 55415 1182253225 Elevated blood-pressure reading without diagnosis of hypertension 466355374 Health Concerns Section Related Observation LastModified by Organization Detai ls LastModified Time None Recorded Concern Status LastModified by Organization Details LastModified Time None Recorded Payers Encounter Date Sequence Insurance Name Policy Number Policy [place] Covered Member ID Pres[place] Member ID Guarantor Name 01/20/2024 1 [facility] (MEDICAID) Yasmani Glaser [id number] Yasmani Glaser Notes Date Note Type Note Provider Name and Address Organization Details Recorded Time 01/20/2024 text/html HPI Notes: Here for f/u obesity. He increased ozempic to 1 mg weekly but he didn't feel great, had nausea and vomiting, so he reduced it to 0.5 mg weekly which has been going well. He still hasn't done PT. He is doing his own stretches and exercises which help. However, he is aware that he really needs to focus on increasing his conditioning with strengthening and aerobic exercise, he feels his muscles getting weaker over time. He feels ready to do PT and also like consultation with orthopedics for his knee. 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 He is feeling positive. acamprosate working well. Still with issues with left sciatica. He is taking ilya for allergies which is working, runny nose, itchy eyes. VILMA GIVENS MD [address], [place], [address], [facility], [facility]. 01/20/2024 10:55:52
--- OUTSIDE RECORDS SUMMARY | 2024-02-29 08:21 | XMS_ITS | Encounter Summary ---
Author Organization [facility] Address [address] [place] [address] Care Team Providers Care Cross Cut Sawyer Name Role Phone Tristan Collins MD Primary Care Provider Unav ailable Reason for Visit * Reason Comments Acute Illness vertebral osteomyeli tis; infected posterior spinal fusion; home IV abx Encounter Details Date Type Department Care Team (Late st Contact Info) Description 08/11/2014 10:30 EST Office Visit [facility] Center Infectious Disease - [address] [id number] Mando Medina MD [address] [facility], [address] [place] [address] Vertebral osteomyelitis ([facility]) (Primary Dx) Social History Tobacco Use Types [...] Sign Reading Time Taken Comments Blood Pressure 140/84 08/11/2014 1021 EST Pulse - - Temperature 37 ??C (98.6 ??F) 08/11/2014 1021 EST Respiratory Rate - - Oxygen Saturation - - Inhaled Oxygen Concentration - - Weight 116.6 kg (257 lb) 08/11/2014 1021 EST Height - - Body Mass Index 41.48 10/09/2011 1347 EDT documented in this encounter Discharge Diagnoses Diagnosis 730.28 OSTEOMYELIT NOS-OTHER SITE[ICD-9-CM] documented in this encounter Ordered Prescriptions Prescription Sig Dispensed Refills Start Date End Da te rifampin (RIFADIN) 300 mg capsule Take 1 Cap by mouth 2 times daily for 180 days. 60 Cap 5 08/11/2014 09/07/2014 documented in this encounter Progress Notes * Mando Medina MD - 08/11/2014 1709 EST [facility] INFECTIOUS DISEASE NEW PATIENT EVALUATION - 08/11/2014 REASON FOR VISIT: Mr Glaser is referred to the infectious diseases clinic today for consultationby Dr Juan Antonio Patel regarding a posterior spinal fusion infection and treatment with home IV antibiotics. HISTORY OF PRESENT ILLNESS: Mr Glaser is a 44-year-old man who injured his back in April 2011 in a work-related injury. Since that time he has had an L4- 5 posterior spinal fusion with 3 revisions. The most recent revision was in April 2014, at which time he was suffering from severe sciatic pain and they went in to clean out bone overgrowth. He re-presented to [facility] on 07/08/2014 with a draining wound. He had wound I+Ds performed on July 08, , , and . Cultures from those operations grew coagulase-negative Staphylococcus, which was sensitive to methicillin and rifampin. He was discharged home on IV cefazolin 2 g q.8 h., which he has been doing via a right arm PICC line without difficulty. He notes that the wound has healed well. He had some diarrhea early on with the antibiotics, but that has improved with yogurt. He has had no fevers or further wound drainage. He does continue to have significant sciatic-type back pain but has only minimal back pain at the site of the wound. No fevers or chills. He is referred here for consultationregarding optimal treatment of this spinal wound infection. Of note, during the procedures in June about half of the hardware on the infected left side was removed, but about half remains in place. Hardware on the right side was not touched. REVIEW OF SYSTEMS: A complete 10-point review was performed and was negative except as noted above. PAST MEDICAL HISTORY: Hypertension and Workman's Comp related back injury in 2010 with repeated surgeries and posterior spinal fusion at L4-5 as above. FAMILY HISTORY: Noncontributory. SOCIAL HISTORY: Mr Glaser is not currently working. 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 He uses smokeless tobacco, has never smoked. Does not use intravenous drugs or alcohol. ALLERGIES: None known. MEDICATIONS: Were reviewed and corrected in the [facility] as needed. Advair 250/50 b.i.d. Amitriptyline 25 mg at bedtime. Citalopram 20 mg at bedtime. Duloxetine 20 mg at bedtime. Chlorthalidone 25 mg at bedtime. Baclofen p.r.n. Gabapentin 300 mg b.i.d. Oxycodone/acetaminophen 5/325 mg q.6 h. Valium 5 mg p.r.n. Trazodone 100 mg daily. Metoclopramide 5 mg q.8 h. Cefazolin 2 g IV q.8 h. since July 12. OBJECTIVE: On physical exam today, he is alert, oriented, in no acute distress. Weight is 116.6 kg.Temperature 37 degrees Celsius. Blood pressure 140/84. He has a PICC line in his right upper extremity with no arm swelling, no erythema, tenderness, or purulence. The dressing is clean. Examination of his skin is notable for the absence of any rash or jaundice. Head and neck exam is with anictericsclerae. There are no subconjunctival or palatal petechiae. Lungs clear to auscultation bilaterally. Cardiac exam: Regular rate and rhythm, normal S1 and S2, no murmurs, rubs or gallops. Abdomen is obese but benign. Extremities are well perfused with no clubbing, cyanosis, edema or embolic phenomena. Musculoskeletal exam is notable for what appears to be a well-healing wound on his lumbar spine with no surrounding erythema, fluctuance, tenderness or warmth. His joints are all grossly normal except for osteoarthritic changes on his hands. Neurologic exam is notable for normal strength in his lower extremities. He is ambulating with a cane. LABORATORY DATA: From hospitalization in June his white blood count was normal, erythrocyte sedimentation rate was 29, and C-reactive protein was slightly elevated at 2.1. Most recent lab work from 08/07/2014 is with a CBC with white count of 7.7 thousand, normal differential. Hematocrit 40.1%,MCV slightly low at 79, platelet count 391,000. Erythrocyte sedimentation rate is 24, C-reactive protein is 0.45 with an upper limit of normal is 0.3 at the [facility] lab. Microbiology culture from the 08 of July, which appears to be obtained surgically, grew Staphepidermidis, which is sensitive to cefazolin, sensitive to ciprofloxacin, sensitive to rifampin, sensitive to tetracyclines, sensitive to trimethoprim sulfa. IMPRESSION: 1. Vertebral osteomyelitis. 2. Posterior spinal fusion wound infection. He has vertebral osteomyelitis and we have to presume that the hardware is involved. This is fortunately due to an antimicrobially-sensitive Staph epidermidis. Given the retained hardware, there may be improved treatment outcomes with adjunctive use of rifampin. The goal here should be to suppress t he infection long enough that fusion of the spine will occur, and at that point if necessary hardware could be removed should he relapse off antibiotics. This typically takes as long as a year of antibiotics to achieve, though after the first 6 weeks if he is doing well we can switch to oral. PLAN: 1. Continue cefazolin 2 g IV q.8 h. for the next 4 weeks. 2. I added rifampin 300 mg p.o. B.i.d. after running his medications through [facility] for drug-druginteractions. It should be noted that this will potentially reduce the efficacy of some of his antidepressant medications. I discussed this with him at length. I also discussed with him that his urine is likely to be red and that he may experience some nausea. 3. The plan, if he is doing well, would be to continue IV cefazolin and rifampin until I see him in4 weeks' time. At that point, if he is doing well, we will stop the IV antibiotics and continue treatment with oral cephalexin plus rifampin. He has some drug interactions that would preclude use of c iprofloxacin. 4. We contacted the [facility] regarding addition of liver function tests to his weekly labs. In addition, hopefully they are going to send us the ongoing C-reactive proteins and weekly labs. I spent 65 minutes [id number] with Mr Glaser and 60 of those 65 minutes were spent discussing his diagnosis of vertebral osteomyelitis and posterior spinal fusion wound infection and its prognosis and treatment options. Mando Medina MD 01 34 PM - Mando Medina MD cn Dictation ID: [id number] cc: Tristan Collins MD, [address], [address] [address] Juan Antonio Patel MD, [address] [place] [address] * Mando Medina MD - 08/11/2014 1318 EST This office note has been dictated. * Janina Leo RN - 08/11/[address] Medina, contacted [facility] and added LFT lab to weekly blood work. Patient to continue on IV antibiotic until f/u appt with Dr. Medina in 4 weeks. Janina Leo RN documented in this encounter Plan of Treatment Not on file documented as of this encounter Visit Diagnoses Diagnosis Vertebral osteomyelitis ([facility])- Primary Unspecified osteomyelitis, other specified site documented in this encounter Historical Medications * This list may reflect changes made after this encounter. Medication Sig Dispensed Refills Start Date End Date metoclopramide HCl (REGLAN) 5 mg tablet Take 5 mg by mouth 3 times daily as needed. 12/07/2014 DIAZepam (VALIUM) 5 mg tablet Take 5 mg by mouth every 6 hours as needed for Anxiety. 11/30/2020 oxyCODONE-acetaminophen (PERCOCET) 5-325 mg per tablet Take 1 Tab by mouth every 6 hours. 08/20/2015 DULoxetine (CYMBALTA) 20 mg capsule Take 20 mg by mouth daily. 12/07/2014 citalopram (CELEXA) 20 mg tablet Take 20 mg by mouth daily. 11/30/2020 amitriptyline (ELAVIL) 25 mg tablet Take 25 mg by mouth at bedtime. 12/07/2014 fluticasone-salmeterol (ADVAIR) 250-50 mcg/dose diskus inhaler Inhale 1 Puff as directed 2 times daily. 11/29/2021 CEFAZOLIN SODIUM IN 0.9 % NACL (CEFAZOLIN IN NORMAL SALINE) 2 gram/100 mL solutionIndications:bone infection Inject 2 g into the vein 3 times daily Indications: BONE INFECTIONS. 07/12/2014 09/07/2014 added in this encounter Care Teams Cross Cut Sawyer Relationship Specialty Start Date End Date Tristan Collins MD PCP - General 06/26/11 05/12/23 documented as of this encounter
--- OUTSIDE RECORDS SUMMARY | 2024-02-29 08:21 | XMS_ITS | Encounter Summary ---
[facility] [place] [address] Care Team Providers Care Slubber Frame Changer Name Role Phone Tristan Collins MD Primary Care Provider [phone] Reason for Visit * Reason Comments Back Pain Left Leg Pain Encounter Details Date Type Department Care Team (Latest Contact Info) Description 03/25/2012 8:50 AM EDT Office [place] [address] Derek Henry MD [facility] [place] [address] L4-S1 PIF with L5-S1 L TLIF; Lumbar disc disease with radiculopathy Discharge Disposition: Home Social History Tobacco Use [...] - Inhaled Oxygen Concentration - - Weight 104.3 kg (230 lb) 03/25/2012 8:59 AM EDT Height 167.6 cm (5' 6) 03/25/2012 8:59 AM EDT Body Mass Index 37.12 03/25/2012 8:59 AM EDT documented in this encounter Progress Notes * Derek Henry MD - 03/25/2012 10:20 AM EDT Date of Injury: 05/16/11 Name of Employer: [employer] Work Status: OOW since 05/22/11 Chief Complaint: left lbp to left foot Interval Hx: After failing conservative therapy, on January 03, 2012 had L4-5-S1 TLIF and ICBG with Dr. Land. Post operative x-ray and MRI showed all in alignment and no concerns. Last seen by Dr. Land for surgical follow-up and next f/u routine in 3.5 months. Current Sx: Has not experienced any improvement to date. He feels his sciatica is worse. Left LBP at 8/10 with constant pulsation radiation to left foot and intermittent lancinating pain. No weakness, but uses quad cane to reduce pain in leg when walking. Constant tingling and numbness of sole of left foot. Denies any focal weakness. No constitutional sx. No GI/ sx. His left leg pain is much worse than his back pain. About 80/20. Triggers: changing posture, No change in leg pain . with valsalva. Alleviated by:changing posture every 30 mins. TENS - helpful while using for left leg pain. Treatment post-op: aquatx with [facility]. 4 weeks to date. Notes no obvious functional improvement in pool and feels like he can do less at home. No treatment in past has helped other than tramadol Pre-op Treatment : Tramadol; oral steroid pills; ibuprofen; percocet;gabapentin- 6 weeks (dizzy, spacey); TFESI, SI joint injection Tried PT (HEP and TENS/US/massage) for about 3 months Current Treatment: TENS unit, pool tx, tylenol and ibuprofen. 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 Worked for this [employer] for 6 years. Has been doing this type of work for about 9 years. Social Hx: . works. Stopped Chewing tobacco. Physical Examination: Spine Observations: He appears in mild distress changing his posture during the evaluation frequently. Hehas a well-healed midline lower lumbar surgical scar Posture: He stands with 5 degrees of flexion, but his spine is straight with normal lumbar lordosis Gait: His gait is antalgic with a shortened left leg stance. Palpation: There is no significant tenderness of the paraspinals or spine..d discomfort at about L4-S1. There is no greater trochanteric tenderness. Range of motion: Flexion to about 40??. Extension is limited to about 5??. Lateral bending is symmetric at about 20??. Motor: Is 5 out of 5+ out the lower extremities Sensory: Decreased to sharp touch over the dorsum and sole of his left foot and also over the rightanterior lateral thigh where he had been lying on the operative Deep tendon reflexes: Hyporeflexive throughout the lower extremities with augmentation. Straight Leg Raise: In the seated position straight leg raise produces sciatic pain on the left. Assessment: 1.. Chronic low back and left leg pain and failure of improvement after conservative therapy including SUSI and left SI joint injections who went on to a TESI have L4-S1 now 3 months post operativelywith some increase of his left sciatic pain but imaging and shows appropriate alignment and no new concerns. At this point it is too early to know what his neurologic improvement may be. He has had improvement in his low back pain but his sciatica seems worse at this time. He's had multiple conservative treatments preoperatively so there not many options left from a medical perspective there likely be helpful but is not use any tricyclics and so that is probably the best medication approach. If this is not successful could use of pregabalin as a trial. He also is likely to benefit from the FRP at somepoint in the next couple of months. He is not make functional improvement in his pool therapy to date on concerned about simply stopping this because he does need to maintain some activity. Plan: 1. 20 of this 25 minute visit was spent in counseling him with respect to a history of post fusion healing and prognosis and his treatment options at this time which I focused on use of medications with preference for nortriptyline and explained the potential side effects. 2. disposition: Will maintain pool therapy for another 2 weeks and initiate nortriptyline up at 10 mg evening increasing up to 30 mg over 3 weeks' as necessary. I will recheck in 4 weeks. He will remain out of work. documented in this encounter Plan of Treatment Not on file documented as of this encounter Visit Diagnoses Diagnosis L4-S1 PIF with L5-S1 L TLIF Sciatica Lumbar disc disease with radiculopathy Displacement of lumbar intervertebral disc without myelopathy documented in this encounter Care Teams Slubber Frame Changer Relationship Specialty Start Date End Date Tristan Collins MD [address] [place] [address] PCP - General 10/30/11 07/06/18 documented as of this encounter
--- OUTSIDE RECORDS SUMMARY | 2024-02-29 08:21 | XMS_ITS | Encounter Summary ---
Author Organization [facility] Address [address] [place] [address] Care Team Providers Care Debate Director Name Role Phone Tristan Collins MD Primary Care Provider Unav ailable Encounter Details Date Type Department Care Team (Latest Contact Info) Description 08/31/2012 9:23 EST - 08/31/2012 23:59 EST Hospital Encounter [facility] [address] [place] [address] Juan Antonio Patel MD [address] [place] [phone] Discharge Disposition: Home or Self Care Social [...] Take 25 mg by mouth daily. 11/04/2021 gabapentin (NEURONTIN) 300 mg capsule Take 1 Cap by mouth 3 times daily. Take one tablet at night for 3-5 days, then titrate slowly up to TID dosing as tolerated and/or to effect. 90 Cap 2 09/16/2011 11/30/2020 ibuprofen (MOTRIN) 800 mg tablet Take 800 mg by mouth every 8 hours as needed. 04/05/2015 Multivitamins with Minerals Tab Take 1 Tab by mouth daily. 04/05/2015 omeprazole (PRILOSEC) 20 mg capsule Take 20 mg by mouth daily. 04/05/2015 Potassium Gluconate 550 mg Tab Take 1 Tab by mouth daily. 04/05/2015 tramadol (ULTRAM) 50 mg tablet Take 50 mg by mouth 3 times daily. 12/07/2014 trazodone (DESYREL) 100 mg tablet Take 100 mg by mouth at bedtime. 12/07/2014 documented as of this encounter Discharge Disposition Disposition Code Departure Means Destination Home or Self [place] documented in this encounter Plan of Treatment Not on file documented as of this encounter Procedures Procedure Name Priority Date/Time Associated Diagnosis Comments IR PICC - REFER TO IV THERAPY FIRST 07/14/2014 12:00 EST documented in this encounter Results * IR PICC - REFER TO IV THERAPY FIRST (07/14/2014 12:00 EST) Anatomical Region Laterality Modality Other 07/14/2014 12:0 0 EST 07/17/2014 16:37 EST Narrative 07/17/2014 16:37 EST Technique and Findings: The patient was prepped and draped in sterile fashion. 1% lidocaine was used for local analgesia. Sonographic guidance was used to gain access to the right basilic vein with a micropuncture needle. A guidewire was advanced into the vein under fluoroscopic guidance to the level of the SVC. The tract was dilated and a double-lumen PICC was placed through a peel-away sheath and the tip positioned at the SVC/RA junction using fluoroscopic guidance. The catheter was secured in place, flushed, and a sterile bandage was applied. The patient tolerated the procedure well without complication. Ultrasound images demonstrate the vein to be patent and were recorded. ELADIO Amato performed the procedure under the direct supervision of Dr. Logan Torres M.D. Impression: Successful, uncomplicated placement of a PICC as described above using sonographic and fluoroscopic guidance. Procedure Note 07/17/2014 Technique and Findings: The patient was prepped and draped in sterile fashion. 1% lidocaine was used for local analgesia. Sonographic guidance was used to gain access to the right basilic vein with a micropuncture needle. A guidewire was advanced into the vein under fluoroscopic guidance to the level of the SVC. The tract was dilated and a double-lumen PICC was placed through a peel-away sheath and the tip positioned at the SVC/RA junction using fluoroscopic guidance. The catheter was secured in place, flushed, and a sterile bandage was applied. The patient tolerated the procedure well without complication. Ultrasound images demonstrate the vein to be patent and were recorded. ELADIO Amato performed the procedure under the direct supervision of Dr. Logan Torres M.D. Impression: Successful, uncomplicated placement of a PICC as described above using sonographic and fluoroscopic guidance. Juan Antonio Patel MD IMG IR ORDERABLES documented in this encounter Visit Diagnoses Not on filedocumented in this encounter Care Teams Debate Director Relationship Specialty Start Date End Date Tristan Collins MD PCP - General 06/26/11 05/12/23 documented as of this encounter
--- OUTSIDE RECORDS SUMMARY | 2024-02-29 08:21 | XMS_ITS | Encounter Summary ---
Author Organization [facility] Address [address] [place] [address] Care Team Providers Care Button And Buckle Maker Name Role Phone Tristan Collins MD Primary Care Provider Unav ailable Reason for Visit * Reason Comments Back Pain left side Encounter Details Date Type Department Care Team (Latest Contact Info) Description 08/18/2011 9:00 EST Office Visit [facility] Interventional Pain [address], [place] [id number] Unknown, Provider, Mirna Koch MD [address] [facility] [address] [place] [address] [place] [address] LBP (low back pain); Lumbosacral spondylosis without myelopathy; Thoracic or lumbosacral neuritis or radiculitis, unspecified; Facet syndrome, lumbar Social History Tobacco Use Types Packs/Day Years [...] Sign Reading Time Taken Comments Blood Pressure 130/90 08/18/2011 0955 EST Pulse 59 08/18/2011 0955 EST Temperature 36.1 ??C (97 ??F) 08/18/2011 0837 EST Respiratory Rate 18 08/18/2011 0955 EST Oxygen Saturation - - Inhaled Oxygen Concentration - - Weight 108.9 kg (240 lb) 08/18/2011 0837 EST Height 167.6 cm (5' 6) 08/18/2011 0837 EST Body Mass Index 38.74 08/18/2011 0837 EST documented in this encounter Patient Instructions * Patient Instructions* Adrianna Pretty - 08/18/2011 9:40 EST [facility] [place] [address] Patient Instructions You have had your left Transforaminal Epidural Steroid Injection. The purpose of this procedure hasbeen to place medication which may help relieve your pain. Steroid may be used to decrease the swelling and nerve irritation which may be causing your pain. The following information should help you over the next few days regarding what you may expect. Today please stay busy/active doing things that would normally cause you pain. Keep track of your hours of relief and your percentage of relief today (0 to 100 , 0 = no relief and 100% = total relief). Separate the pressure and tightness that we caused you from your regular pain and see what your relief is. Call us back tomorrow with this information. Procedure end time: 950 Pain relief start time Returned to baseline pain Hours of relief Percentage of relief 0-100 (0 = no relief, 100 = total relief) DO NOT drive a car for the [...] our office at once. Instructions for follow-up If you have any questions about your block, please call Patient Education Topic: Method: Handout and Verbal Taught to: Patient Barriers: None Outcomes: independent and verbalized understanding Signature:Adrianna Pretty documented in this encounter Progress Notes * Anabell Womack - 08/18/2011 0919 EST Patient Name: Yasmani Glaser : 1970 Date of Service: 08/18/2011 Jewel Staker: Mirna Koch MD Farm Contractor: Conrado Womack MD Procedure: Transforaminal epidural steroid injection at the left L5-S1 foramen Interval History: Mr. Glaser presents at the request of Derek Veras for evaluation and treatment of his chronic low back pain and left thigh pain. The pain is primarily localized to the left lowback and radiates to the left buttock and occ. Down the left thigh. This pain has been present for 3 month(s) and is described as sharp, aching and burning in character. The average pain intensity is8/10 and is aggravated by walking, extension and lifting. Medications and Resting/lying down alleviates the pain. No associated symptoms such as bladder incontinence, bowel incontinence, fever, headaches, numbness, paresthesias, tingling or weakness. His response to PT and NSAIDS have been dismal. MRI 07/14/11 Impression: Degenerative spondylosis of the lower lumbar spine as described, most notably at the L5-S1 level where disc bulge and facet disease result in possible mass effect in the left L5 nerve root within the neural foramen. A right paracentral disc herniation at L4-L5 is noted without central canal stenosis or foraminal compromise ROS: Patient denies fevers, nausea, vomitting, headaches, dizziness, or visual changes. Patient denies any known coagulopathies. Patient denies shortness of breath or chest pain. Patient denies bowel or bladder incontinence. Physical Exam: Blood pressure 120/84, pulse 62, temperature 36.1 ??C (97 ??F), resp. rate 16, height 167.6 cm (66), weight 108.863 kg (240 lb).' GENERAL: The pt is alert and oriented x3, casually dressed and well groomed. Mood and affect are congruent. HEENT: NCAT. EOMI. Anicteric sclerae. Noninjected conjunctivae. NEUROLOGIC: Cranial nerves II through XII are grossly intact. NECK: No rashes or skin breakdown. CARDIOPULMONARY: Unlabored breathing. EXTREMITIES: No clubbing, cyanosis MUSCULOSKELETAL: antalgic gait. Strength in the upper arms is grossly intact. Positive SLR on the left side MOTOR:Left 5/5 on hip flexion,5/5 knee flexion/extension, and 5/5 ankle plantar and dorsiflexion. Right 5/5 on hip flexion,5/5 knee flexion/extension, and 5/5 ankle plantar and dorsiflexion. Assessment: Encounter Diagnoses Name Primary? LBP (low back pain) ??? Lumbosacral spondylosis without myelopathy ??? Thoracic or lumbosacral neuritis or radiculitis, unspecified ??? Facet syndrome, lumbar Plan: Proceed with transforaminal epidural steroid injection at left L5-S1. Follow up: as needed for further evaluation. Consider Left L4-5 and L5-S1 facet injection. PROCEDURE: The patient gave informed written consent to proceed with this procedure following a detailed discussion of the risks and benefits associated with transforaminal epidural steroid injection in the lumbar spine. The patient was then placed in the prone position, the skin over the lumbosacral area wasprepped with chlorhexadine, and the site was draped with sterile towels. Strict sterile technique was maintained throughout the procedure. A anthony moment was performed with full staff present to identify the patient, verify the procedure being performed, and review allergies. Flouoroscopy was used to visualize the left L5-S1 neuroforamen. The skin and subcutaneous tissue over this level was anesthetized by infiltration of 2% lidocaine. A 22 guage 5.0 inch spinal needle was inserted under fluoroscopic guidance using coaxial technique. The needle was slowly advanced by pos terolateral approach to the superior aspect of the foramen. Fluoroscopic images in the AP and lateral views were taken to confirm final needle tip position in the distal foramen. No parasthesias occurred during needle insertion and aspiration was negative. Contrast dye was injected under live fluoroscopy and revealed good spread along the Lt L5 nerve root with no evidence of intravascular or intrathecal uptake. After negative aspiration, 80 mg Depo- Medrol and 1 ml 0.5% Bupivacaine was injected.The needle was then flushed and withdrawn. The patient tolerated the procedure well, there were no apparent complications, and he was discharged in stable condition. Written and verbal discharge instructions were reviewed with the patient prior to discharge. Attending attestation: The patient was seen and discussed with the resident/fellow. I agree with the findings and plan of care documented in the resident's/fellow's note. In addition, I was present and participated during the entire procedure. 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 yes Is patient NPO? (Solids since midnight [...] current ? Other: documented in this encounter Miscellaneous Notes * Scanned Note-Null - Bilingual Branch Manager, Scan - 08/18/2011 1358 EST documented in this encounter Plan of Treatment Not on file documented as of this encounter Visit Diagnoses Diagnosis LBP (low back pain) Lumbago Lumbosacral spondylosis without myelopathy Thoracic or lumbosacral neuritis or radiculitis, unspecified Facet syndrome, lumbar Lumbago documented in this encounter Discontinued Medications Medication Sig Discontinue Reason Start Date End Da te methylPREDNISolone (MEDROL DOSEPACK) 4 mg tablet follow package directions Therapy completed 06/27/2011 08/18/2011 tramadol (ULTRAM) 50 mg tablet Take 50 mg by mouth every 8 hours as needed. Discontinued by another clinician 08/18/2011 documented as of this encounter Care Teams Button And Buckle Maker Relationship Specialty Start Date End Date Tristan Collins MD PCP - General 06/26/11 05/12/23 documented as of this encounter
--- OUTSIDE RECORDS SUMMARY | 2024-02-29 08:21 | XMS_ITS | Encounter Summary ---
Author Organization [facility] Address [place] [id number] Care Team Providers Care Lead Caregiver Name Role Phone Tristan Collins MD Primary Care Provider [phone] Reason for Referral * Physical Therapy (Routine) - Closed by system - unspecified Specialty Diagnoses / Procedures Referred By Contac t Referred To Contact Physical Therapy Diagnoses Sciatica of left side Rodolfo Land MD [facility] [place] [address] Referral ID Status Reason Start Date Expiration Date Visits Requested Visits Authorized [id number] Closed by system - unspecified Evaluate and Treat 02/11/2012 08/09/2012 1 1 Reason for Visit * Reason Comments Follow Up Surgery Encounter Details Date Type Department Care Team (Late st Contact Info) Description 02/11/2012 10:20 AM EDT Office [place] [address] Rodolfo Land MD [facility] [place] [address] L4-S1 PIF with L5-S1 L TLIF (Primary Dx) Discharge Disposition: Home Social History Tobacco Use Types Packs/Day Years Used Date Smoking Tobacco: Never Smokeless Tobacco: Current Chew Sex and Gender Information Value Date Recorded Sex Assigned at Not on file Gender Identity Not on file Sexual Orientation Not on file documented as of this encounter Progress Notes * Rodolfo Land MD - 02/11/2012 12:31 PM EDT Pleased to review this 41 M, at 5 weeks since L4-5-S1 fusion. Wound healed up well. The back is still inflamed as much as expected at this stage. Up and about without support. Still has residual right anterior thigh tingling (meralgic pain) and also has some residual left leg symptoms from pre-op. Reassured that at this early stage it is not unlikely to get such symptoms. He may expect significant improvement once the inflammation settles down. Given a prescription for PT locally. He will be reviewed in 6 weeks time for 3 mo FU without x-rays, and may start FRP at that stage. documented in this encounter Plan of Treatment Scheduled Referrals Name Type Priority Associated Diagnoses Orde r Schedule REFERRAL TO PHYSICAL THERAPY Outpatient Referral Routine L4-S1 PIF with L5-S1 L TLIF Ordered: 02/11/2012 documented as of this encounter Visit Diagnoses Diagnosis L4-S1 PIF with L5-S1 L TLIF- Primary Sciatica documented in this encounter Care Teams Lead Caregiver Relationship Specialty Start Date End Date Tristan Collins MD [address] [place] [address] PCP - General 10/30/11 07/06/18 documented as of this encounter
--- OUTSIDE RECORDS SUMMARY | 2024-02-29 08:21 | XMS_ITS | Encounter Summary ---
Author Organization [facility] Address [address] [place] [address] Care Team Providers Care Middle School Math Teacher Name Role Phone Tristan Collins MD Primary Care Provider Unav ailable Reason for Visit * Reason Onset Date Comments Appointment Related 09/03/2011 Encounter Details Date Type Department Care Team (Late st Contact Info) Description 09/03/2011 Telephone [facility] Spine Program - [address] [place] [address] Derek Veras PA-C [address] [place] [address] [place] [address] Appointment Related Social History Tobacco Use Types [...] encounter Miscellaneous Notes * Telephone Encounter - Kingsley Whitney - 09/03/2011 1015 EST Gave Yasmani the d/t of MBB and EMG appts. Yasmani explains that he wants to be seen for EMG on lower extremity only, as the upper extremity symptoms he is experiencing are not related to work injury. I edited EMG appt details to reflect this. Sent EMG/MBB/RFA paperwork, and explained to Yasmani that he should call us to schedule a f/u w/ Riki Hemond 2 wks after his RFA has been scheduled. documented in this encounter Plan of Treatment Not on file documented as of this encounter Visit Diagnoses Not on filedocumented in this encounter Care Teams Middle School Math Teacher Relationship Specialty Start Date End Date Tristan Collins MD PCP - General 06/26/11 05/12/23 documented as of this encounter
--- OUTSIDE RECORDS SUMMARY | 2024-02-29 08:21 | XMS_ITS | Encounter Summary ---
[place] [address] Care Team Providers Care Oil And Gas Exploration Technician Name Role Phone Tristan Collins MD Primary Care Provider [phone] Encounter Details Date Type Department Care Team (Late st Contact Info) Description 06/09/2012 Abstract [place] [address] Catalina Price, FEATHER CURLING MACHINE OPERATOR Social History Tobacco Use Types Packs/Day Years [...] on filedocumented in this encounter Care Teams Oil And Gas Exploration Technician Relationship Specialty Start Date End Date Tristan Collins MD [address] [place] [address] PCP - General 10/30/11 07/06/18 documented as of this encounter
--- OUTSIDE RECORDS SUMMARY | 2024-02-29 08:21 | XMS_ITS | Encounter Summary ---
Author Organization [facility] Address [address] [place] [address] Care Team Providers Care Automotive Parts Counter Assistant Name Role Phone Tristan Collins MD Primary Care Provider Unav ailable Reason for Visit * Reason Onset Date Comments Results 08/18/2011 l5-s1 left tfesi Encounter Details Date Type Department Care Team (Late st Contact Info) Description 08/18/2011 Telephone [facility] Interventional Pain [address] [place] [address] Teri Hemphill MD [address] [facility] [address] [place] [address] Results (l5-s1 left tfesi) Social History Tobacco Use Types Packs/Day Years [...] encounter Miscellaneous Notes * Telephone Encounter - Lisa Crowell - 08/20/2011 1216 EST I attempted to call the patient to obtain results of his TFESI but he was unavailable. I asked him to return our call when convenient. documented in this encounter Plan of Treatment Not on file documented as of this encounter Visit Diagnoses Not on filedocumented in this encounter Care Teams Automotive Parts Counter Assistant Relationship Specialty Start Date End Date Tristan Collins MD PCP - General 06/26/11 05/12/23 documented as of this encounter
--- OUTSIDE RECORDS SUMMARY | 2024-02-29 08:21 | XMS_ITS | Encounter Summary ---
Author Organization [facility] [place] [address] Care Team Providers Care Air [employer] Senior Officer Name Role Phone Tristan Collins MD Primary Care Provider [phone] Reason for Visit * Reason Onset Date Comments Other 01/05/2012 Encounter Details Date Type Department Care Team (Late st Contact Info) Description 01/05/2012 Telephone Care Management [facility] [place] [phone] Linda Mcgrath [facility] [place] [address] Other Social History Tobacco Use Types Packs/Day Years Used Date Smoking Tobacco: Never Smokeless Tobacco: Current Chew Sex and Gender Information Value Date Recorded Sex Assigned at Not on file Gender Identity Not on file Sexual Orientation Not on file documented as of this encounter Miscellaneous Notes * Telephone Encounter - Linda Mcgrath MSW - 01/05/2012 3:58 PM EDT [facility] Insurance Demographics Name: Yasmani Glaser : 1970 DOI: 05/16/2011 Employer: [employer] - [phone] Claim #: [id number] Injury to: Low Back Carrier: [employer] - [phone] NCM: TONO [employer]LLOA Phone #: [phone] Fax #: [phone] Head Animal Keeper: TARAH VALVERDE Phone #: [phone] EXT 0204 Fax #: [phone] documented in this encounter Plan of Treatment Not on file documented as of this encounter Visit Diagnoses Not on filedocumented in this encounter Care Teams Air Force Senior Officer Relationship Specialty Start Date End Date Tristan Collins MD [address] [place] [address] PCP - General 10/30/11 07/06/18 documented as of this encounter
--- OUTSIDE RECORDS SUMMARY | 2024-02-29 08:21 | XMS_ITS | Encounter Summary ---
[place] [address] Care Team Providers Care Gas Plumber Name Role Phone Tristan Collins MD Primary Care Provider [phone] Encounter Details Date Type Department Care Team (Late st Contact Info) Description 02/10/2012 Abstract [place] [address] Catalina Price, WASTE COTTON CLEANER Social History Tobacco Use Types Packs/Day Years [...] on filedocumented in this encounter Care Teams Gas Plumber Relationship Specialty Start Date End Date Tristan Collins MD [address] [place] [address] PCP - General 10/30/11 07/06/18 documented as of this encounter
--- OUTSIDE RECORDS SUMMARY | 2024-02-29 08:21 | XMS_ITS | Encounter Summary ---
Author Organization [facility] Address [address] [place] [address] Care Team Providers Care Hospital Librarian Name Role Phone Tristan Collins MD Primary Care Provider Unav ailable Reason for Visit * Reason Onset Date Comments Appointment Related 06/27/2011 Encounter Details Date Type Department Care Team (Late st Contact Info) Description 06/27/2011 Telephone [facility] Spine Program - [address] [place] [address] Derek García MD [address] [place] [address] [place] [address] Appointment Related Social History Tobacco Use Types Packs/Day Years Used Date Smoking Tobacco: Never Assessed Smokeless Tobacco: Current Alcohol Use Standard Drinks/Week Comments No 0 (1 standard drink = 0.6 oz pur e alcohol) Sex and Gender Information Value Date Recorded Sex Assigned at Not on file Gender Identity Not on file Sexual Orientation Not on file documented as of this encounter Miscellaneous Notes * Telephone Encounter - Sergio Cardenas - 06/27/2011 1614 EST Patient notified of time and date for MRI and f/u. documented in this encounter Plan of Treatment Not on file documented as of this encounter Visit Diagnoses Not on filedocumented in this encounter Care Teams Hospital Librarian Relationship Specialty Start Date End Date Tristan Collins MD PCP - General 06/26/11 05/12/23 documented as of this encounter
--- OUTSIDE RECORDS SUMMARY | 2024-02-29 08:21 | XMS_ITS | Encounter Summary ---
Author Organization [facility] Address [address] [place] [address] Care Team Providers Care Editor Newspaper Name Role Phone Tristan Collins MD Primary Care Provider Unav ailable Encounter Details Date Type Department Care Team (Late st Contact Info) Description 07/01/2011 Abstract [facility] Spine Program - [address] [place] [address] Derek Veras PA-C [address] [place] [address] [place] [address] Social History Tobacco Use Types Packs/Day Years Used Date Smoking Tobacco: Never Assessed Smokeless Tobacco: Current Comments:daily for 28 years [...] on filedocumented in this encounter Care Teams Editor Newspaper Relationship Specialty Start Date End Date Tristan Collins MD PCP - General 06/26/11 05/12/23 documented as of this encounter
--- OUTSIDE RECORDS SUMMARY | 2024-02-29 08:21 | XMS_ITS | Encounter Summary ---
Author Organization [facility] Address [address] [place] [address] Care Team Providers Care Title Clerk Name Role Phone Tristan Collins MD Primary Care Provider Unav ailable Reason for Referral * Consult (Routine) - Closed Specialty Diagnoses / Procedures Referred By Contvelma linn Referred To Contact Pain Medicine Diagnoses Low back pain Derek Veras PA-C [address] [place] [phone] [facility] [address] [place] [address] Referral ID Status Reason Start Date Expiration Date V isits Requested Visits Authorized [id number] Closed Specialty Services Required 09/02/2011 1 1 Question Answer Reason for Request: Lumbar MBB l3-4 L4-5 L5-S1 bilaterally Reason for Visit * Reason Comments Back Pain Leg Pain Encounter Details Date Type Department Care Team (Late st Contact Info) Description 09/02/2011 10:30 EST Office Visit [facility] Spine Program - [address] [place] [address] Derek Veras PA-C [address] [place] [phone] Low back pain (Primary Dx); Meralgia paresthetica; Carpal tunnel syndrome; Ulnar neuropathy Social History Tobacco Use Types Packs/Day Years [...] Progress Notes * Derek Veras PA - 09/02/2011 1229 EST Yasmani presents with continued back and left lower extremity symptoms that radiate to the hip, anterior thigh to the knee. Also noting right upper extremity symptoms from the elbow down through the whole forearm and hand. Since our last visit, he has undergone a TFESI at 5-S1 on the left with no change in his typical symptoms; in fact, he had a change in his pain, he had acute increase in his symptoms with new lateral thigh, lateral calf and foot tingling, which is still persistent, but improving. Objectively, patient has a positive Tinel on the ulnar compression test on the left upper extremity. ASSESSMENT: A gaihf-kgqye-xusl-old gentleman with back pain, likely musculoskeletal diskogenic component of facet arthropathy with leg symptoms, likely meralgia paresthetica. Upper extremity symptomsare likely result of ulnar neuropathy and carpal tunnel syndrome. PLAN: 1. EMG nerve conduction study left upper extremity, rule out carpal tunnel syndrome, ulnar neuropathy and left lower extremity to rule out meralgia paresthetica. 2. Continue work restrictions. 3. Continue home exercise program. 4. Continue current pain management regime. 5. A note was placed in his chart today from his nurse case making machine operator, Ana Urbina RN requestinga surgical consult. At this point, this patient is not a surgical candidate. He has no clear surgical lesion. He will need further workup to better determine his surgical candidacy and at this point,it is a low likelihood that surgery will be a treatment option. I spent 15 minutes with 15 minutes of our time spent egbe-eo-ihez discussing symptoms, subjective complaints and reviewing his treatment options. documented in this encounter Plan of Treatment Scheduled Referrals Name Type Priority Associated Diagnoses Orde r Schedule AMB CONSULT PAIN CLINIC Outpatient Referral Routine Low back pain Ordered: 09/02/2011 documented as of this encounter Visit Diagnoses Diagnosis Low back pain- Primary Lumbago Meralgia paresthetica Carpal tunnel syndrome Ulnar neuropathy Lesion of ulnar nerve documented in this encounter Care Teams Title Clerk Relationship Specialty Start Date End Date Tristan Collins MD PCP - General 06/26/11 05/12/23 documented as of this encounter
--- OUTSIDE RECORDS SUMMARY | 2024-02-29 08:21 | XMS_ITS | Encounter Summary ---
[place] [address] Care Team Providers Care Fisher Dip Net Name Role Phone Tristan Collins MD Primary Care Provider [phone] Encounter Details Date Type Department Care Team (Late st Contact Info) Description 07/14/2012 Abstract [place] [address] Catalina Price, EELER Social History Tobacco Use Types Packs/Day Years [...] on filedocumented in this encounter Care Teams Fisher Dip Net Relationship Specialty Start Date End Date Tristan Collins MD [address] [place] [address] PCP - General 10/30/11 07/06/18 documented as of this encounter
--- OUTSIDE RECORDS SUMMARY | 2024-02-29 08:21 | XMS_ITS | Encounter Summary ---
Author Organization [facility] Address [address] [place] [address] Care Team Providers Care Needle Straightener Name Role Phone Tristan Collins MD Primary Care Provider Unav ailable Reason for Visit * Reason Comments Back Pain Leg Pain Left > right Encounter Details Date Type Department Care Team (Late st Contact Info) Description 09/19/2011 10:00 EST Office Visit [facility] Spine Program - [address] [place] [address] Petra Rodriguez MD [address] [place] [address] [place] [phone] Lumbar spondylosis; SI (sacroiliac) pain Social History Tobacco Use Types Packs/Day [...] - Inhaled Oxygen Concentration - - Weight 108.4 kg (239 lb) 09/19/2011 1022 EST Height 167.6 cm (5' 6) 09/19/2011 1022 EST Body Mass Index 38.58 09/19/2011 1022 EST documented in this encounter Progress Notes * Petra Rodriguez MD - 09/19/2011 1110 EST This office note has been dictated. documented in this encounter Procedure Notes * Petra Rodriguez MD - 09/19/2011 1143 EST Spine [place] [facility] [address] [place] [address] ELECTRODIAGNOSTIC MEDICINE CONSULTATION SERVICE DATE: 09/19/2011 REFERRING PROVIDER: ELADIO Gautam PRIMARY CARE PHYSICIAN: Tristan Collins MD ELECTRODIAGNOSTIC PHYSICIAN: Petra Rodriguez MD SUBJECTIVE: I am being requested by Riki Eda to perform electrodiagnostic studies today for Mr Yasmani Glaser. He is a 41-year-old male whose history dates back to April of 2011. He recalls experiencing insidious onset of predominantly left back pain. At that time, he was incapacitated for several days. Today, he describes the pain more left-sided across the back, 50% left, 50% left leg pain. It radiates posterior thigh to the lateral calf. Associated with this is numbness circumferentially through both feet. Reviewing Riki Veras's comprehensive initial eval. 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 PAST MEDICAL HISTORY: Significant for obesity, hypertension. SOCIAL HISTORY: He does not smoke. MEDICATIONS: Reviewed in [facility] include: Multivitamin. Potassium. Hygroton. Gabapentin 300 t.i.d. Motrin 800. Prilosec. Ultram 50. Desyrel 100. Treatment to date: Left transforaminal L5-S1 epidural steroid 08/18/11 Dr Hemphill. Post this procedure,no relief. OBJECTIVE: He is very pleasant, easily transitions from sit to stand. Gait is relatively normal. Insupine, negative straight leg raise. Back exam: Lipoma noted over the left low back, tenderness across the left SI and paramedian across the facet joints on the left. With flexion, he is able to flexfingertips a few inches from the floor. Lumbar extension is painful. In supine, negative straight leg raise, rotary motions of the hip pain free. Positive Charla on the left. Strength is grossly normal. Muscle stretch reflexes symmetrically obtunded. Sensory exam: Light touch, proprioception intact.No atrophy of the musculature. FINDINGS: NERVE CONDUCTION STUDY: Nerve Distal Latency Evoked Nerve Conduction Comments (NI<3.6) Response Velocity Amplitude Left sural sensory 3.1 msec 26 mV Left superficial peroneal sensory 1.7 msec 20 mV Peroneal motor 4.7 msec 4.5 mV F-wave for the left peroneal motor is 42.7 msc Tibial motor 3.2 msec 12 mV F-wave is 45.6 msec, H-reflex for the left gastroc is 31.3 msec EMG of select muscles of the left lower extremity including vastus lateralis, vastus medialis quadriceps femoris, tibialis anterior, medial lateral gastrocs and upper, middle, lower lumbar paraspinals. All muscles were electrically silent. There were normal recruitment patterns with normal motor units. IMPRESSION: This is a completely normal electrodiagnostic study. There are normal. Sensory studies left lower extremity superficial peroneal and sural. The motor studies of the left peroneal and tibial nerves are normal. The F waves for the peroneal and tibial nerves pass freely without delay. The H-reflex is completely normal. RADIOGRAPHIC STUDIES: Lumbar x-rays from 06/2011, wedging noted at T11 and T12, disk space narrowing at L1-2, lumbar vertebrae relatively normal, SI joints without degenerative change. MRI lumbar spine 07/14/11: Disk bulging throughout at L4-5, right paracentral herniation. L5-S1 disk bulge, degenerative facets and mild foraminal narrowing. CLINICAL IMPRESSION: A 41-year-old male presents predominantly with left-sided back pain with radiation into the left leg. MEDICAL DECISION MAKING: He has a positive Charla's with significant tenderness over the left SI joint. I do believe some of his pain is SI driven. His MRI and clinical exam is also concordant for a facet syndrome on the left. Clearly, has a fluid signal in the facet joints of the low lumbar spine and lumbar spondylosis. At this point, I am in agreement with Dr Hemphill. RECOMMENDATIONS: 1. Left SI injection. 2. Left L4-5 and 5-S1 facet injections. 3. Follow up with Riki Veras as soon as possible for a review of the findings of the EMG. All patient's questions were answered. All findings were reviewed. Electronically Signed by Ptera Rodriguez MD 10/09/2011 16:57 Petra Rodriguez MD - Petra Rodriguez MD A - WP Job ID: SM Doc ID: [id number] Ext Doc ID: [id number] cc: documented in this encounter Plan of Treatment Not on file documented as of this encounter Visit Diagnoses Diagnosis Lumbar spondylosis Lumbosacral spondylosis without myelopathy SI (sacroiliac) pain Disorders of sacrum documented in this encounter Discontinued Medications Medication Sig Discontinue Reason Start Date End Da te oxycodone-acetaminophe n (PERCOCET) 5-325 mg per tablet Take 1 Tab by mouth 3 times daily as needed for Pain. Patient Stopped Taking 07/24/2011 09/19/2011 documented as of this encounter Care Teams Needle Straightener Relationship Specialty Start Date End Date Tristan Collins MD PCP - General 06/26/11 05/12/23 documented as of this encounter
--- OUTSIDE RECORDS SUMMARY | 2024-02-29 08:21 | XMS_ITS | Encounter Summary ---
[place] [address] Care Team Providers Care Commercial Leasing Manager Name Role Phone Tristan Collins MD Primary Care Provider [phone] Reason for Visit * Reason Comments Back Pain Encounter Details Date Type Department Care Team (Late st Contact Info) Description 03/12/2012 10:20 AM EDT Office [place] [phone] Rodolfo Land MD [facility] [place] [address] L4-S1 PIF with L5-S1 L TLIF (Primary [...] - - Weight 104.3 kg (230 lb) 03/12/2012 11:17 AM EDT Height 167.6 cm (5' 6) 03/12/2012 11:17 AM EDT Body Mass Index 37.12 03/12/2012 11:17 AM EDT documented in this encounter Progress Notes * Rodolfo Land MD - 03/12/2012 1:22 PM EDT Reviewed at the request of the patient complaining of persistent left leg pain at 10 weeks after L4-5-S1 fusion and left sided TLIF at L50S1, He had been seen at 6 weeks FU. He was explained that during the first 3 months post-op similar pain and discomfort are not unusual, and he may expect to experience gradual relief, which may take 3-6months time; the maximum benefit of surgery may be appreciate at one year follow-up. He was suggested PT for 6 weeks at his previous FU. He did PT for 3 weeks only, and has not done his PT this week. He explained that his PT and his [facility] nurse bilingual manager think he is not making adequate progress and raised the concern of some 'bone fragment or disc' may still be compressing the nerve root, and is causing these current symptoms. Based on this communication from Mr. Glaser to Marisabel Hanley, an MRI was arranged, and he is here to see me with the new MRI scan. The MRI showed no such changes. It shows well performed decompression, and well positioned hardware. The radiologist's read is ...expected post-operative enhancement of tissues superficial to the lumbar spine. No canal narrowing, new neural foraminal narrowing, or new disk herniation is identified,... His back wound has deepti up well. He is up and about and ambulatory freely, as much as expected at 10 weeks from two level spinal fusion. It appears that this is a premature unnecessary hospital visit per suggestion from his work-compensation nurse and PT, raising concerns. I have today reassured Mr. Glaser that his MRI did not show any concern raised by his PT. He mayexpect to improve gradually from the current symptoms as explained to him during pre-op visits, as well as in his 6 weeks post-op follow- up. I have suggested, should there be similar concerns raised by his PT or nurse case-bilingual manager, it is better to consult either us directly, or see his PCP before further imaging studies are arranged. Once he makes adequate improvement in his pain and function to start FRP, possibly during the next 4-6 weeks, he should start FRP program at [facility] or locally at his convenience. He will be seen in routine follow-up, at 6 mo post-op, which will be 3 1/2 months from now, with new x-ray on arrival. documented in this encounter Plan of Treatment Not on file documented as of this encounter Results * XR lumbar spine [...] PIF with L5-S1 L TLIF- Primary Sciatica L4-S1 PIF with L5-S1 L TLIF Sciatica documented in this encounter Care Teams Commercial Leasing Manager Relationship Specialty Start Date End Date Tristan Collins MD [address] [place] [address] PCP - General 10/30/11 07/06/18 documented as of this encounter
--- OUTSIDE RECORDS SUMMARY | 2024-02-29 08:21 | XMS_ITS | Encounter Summary ---
Author Organization [facility] [place] [address] Care Team Providers Care Health Services Administrator Name Role Phone Tristan Collins MD Primary Care Provider [phone] Reason for Visit * Reason Onset Date Comments Other 06/18/2012 Encounter Details Date Type Department Care Team (Late st Contact Info) Description 06/18/2012 Telephone [place] [phone] Savannah He [facility] [address] Other Social History Tobacco Use Types Packs/Day Years Used Date Smoking Tobacco: Never Smokeless Tobacco: Current Chew Sex and Gender Information Value Date Recorded Sex Assigned at Not on file Gender Identity Not on file Sexual Orientation Not on file documented as of this encounter Miscellaneous Notes * Telephone Encounter - Savannah He MSW - 06/18/2012 3:04 PM EST OFFICE OF CARE MANAGEMENT CCM Per email from [facility] Ana Urbina RN, Engineering Model [employer] [facility] [phone] (Direct) to please cancel GAP as Mr. Glaser plans to follow up with another orthopaedist. Msg. Left for patient requesting return call to clarify a) does he wish to cancel GAP b) would he also like to cancel follow up with Dr. Mendoza. Update to team pending return call from patient. documented in this encounter Plan of Treatment Not on file documented as of this encounter Visit Diagnoses Not on filedocumented in this encounter Care Teams Health Services Administrator Relationship Specialty Start Date End Date Tristan Collins MD [address] [place] [address] PCP - General 10/30/11 07/06/18 documented as of this encounter
--- OUTSIDE RECORDS SUMMARY | 2024-02-29 08:21 | XMS_ITS | Encounter Summary ---
Author Organization [facility] [place] [address] Care Team Providers Care Stove Bottom Worker Name Role Phone Tristan Collins MD Primary Care Provider [phone] Encounter Details Date Type Department Care Team (Late st Contact Info) Description 06/10/2012 11:00 AM [facility] Follow-[place] [phone] Savannah He, [facility] [place] [address] Social History Tobacco Use Types Packs/Day Years [...] on filedocumented in this encounter Care Teams Stove Bottom Worker Relationship Specialty Start Date End Date Tristan Collins MD [address] [place] [address] PCP - General 10/30/11 07/06/18 documented as of this encounter
--- OUTSIDE RECORDS SUMMARY | 2024-02-29 08:21 | XMS_ITS | Encounter Summary ---
Author Organization [facility] Address [address] [place] [address] Care Team Providers Care Proof Clerk Name Role Phone Tristan Collins MD Primary Care Provider Unav ailable Encounter Details Date Type Department Care Team (Late st Contact Info) Description 07/14/2014 10:16 EST - 07/14/2014 23:08 EST Hospital Encounter [facility] Cardiovascular Unit [address] [place] [address] Unknown, Provider, Logan Torres MD [address] [facility] Level [address] [place] [address] Discharge Disposition: Home or Self Care Social [...] Sign Reading Time Taken Comments Blood Pressure 109/88 07/14/2014 1145 EST Pulse - - Temperature - - Respiratory Rate - - Oxygen Saturation 95% 07/14/2014 1146 EST Inhaled Oxygen Concentration - - Weight - - Height - - Body Mass Index - - documented in this encounter Discharge Instructions * Discharge Instructions* Juan Antonio Chisholm RN - 07/14/2014 11:52 EST RADIOLOGY PATIENT EDUCATION INSTRUCTIONS FOLLOWING PLACEMENT OF VENOUS ACCESS CATHETERS (Outside the skin) Procedure Site - Right Arm Physician Performing Procedure - Logan Torres & Manohar Key Pa-C Type of Venous Access Catheter - Power PICC Selected vein - Basilic vein Tip of the Catheter - CAJ Total Length - 42 cm External Length - 0 cm The type of catheter chosen depends on what you and your physician have discussed. A venous access catheter is used for fpc antibiotics, supplements IV nutrition, blood products, medication or hemodialysis. It is connected to a tube, which is placed in the superior vena cava, a vein close to your heart, and external tubing comes out of the skin site like an IV. You may resume your normal diet after the procedure. ?? DO NOT take aspirin-containing products, Ibuprofen, Vitamin E, or blood thinning medicine for 24hours after the procedure. You may take Tylenol for mild discomfort. Call your physician for pain unrelieved with Tylenol. ?? Check the dressing throughout the day. If you notice any swelling, oozing or brisk bleeding, immediately apply pressure to the area for 10 minutes. Slowly release the pressure and check to see if the bleeding has stopped. Repeat the process again if necessary. If bleeding does not stop at this point, then seek medical attention by going to your nearest emergency room. ?? Wound Care - The dressings will be changed by the nurse delivering your prescribed therapy, by the VNA nurse, or by your dialysis nurse. The dressings used are to be placed in a sterile fashion toavoid infection. ?? Showering/Bathing - You may shower, if you place Saran Wrap and tape over the dressing and catheters to help prevent them from getting wet. ?? BE SURE TO SECURE THE DANGLING TUBING, to avoid stress or tension. This could lead to the catheters being pulled on or possibly coming out. ?? If the catheter does accidentally get pulled out, DO NOT try to advance back in, secure it and call your physician in the morning. If the catheter comes completely out, cover with a sterile dressing and call your physician. IF YOU HAVE ANY QUESTIONS OR CONCERNS REGARDING THE PROCEDURE, PLEASE CALL THE INTERVENTIONAL RADIOLOGY CLINIC . SOMEONE IS AVAILABLE TO TAKE YOUR CALL 24 HOURS A DAY. documented in this encounter Medications at Time of Discharge Medication Sig Dispensed Refills Start Date End Date CEFAZOLIN SODIUM IN 0.9 % NACL (CEFAZOLIN IN NORMAL SALINE) 2 gram/100 mL solutionIndications:bon e infection Inject 2 g into the vein 3 times daily Indications: BONE INFECTIONS. 07/12/2014 09/07/2014 chlorthalidone (HYGROTON) 25 mg tablet Take 25 [...] documented in this encounter Progress Notes * Juan Antonio Chisholm RN - 07/14/2014 1129 EST Patient arrived to IR 26. ID'd by name and , reviewed allergies and current medications. Reviewed [facility] Medical Records and H&P. Labs within normal parameters. Situation: Patient arrived to [facility] @ 1010 via ambulance with an RN to Radiology holding area. We received verbal report from [facility] RN. Patient resting on stretcher. Background: Lumbar spine I&D with manager intermediate abx. Assessment: Patient is A/O x 3, c/o pain in lower back at a 3 of 10. Patient moved from stretcher to IR table independently. Right arm sterile prepped in usual fashion. Placed U/S guided 5 fr dual lumen PICC in the R basilic vein, trim lenth is 42mm, 0 external exposed, tip of cath Cable arterial junction. Secured PICC with stat lock and bio patch in place, covered with dry sterile dressing. Tolerated procedure very well. Verbal report given to [facility] RN, patient returned to [facility] via ambulance. Recommendation: Routine picc line care. documented in this encounter Procedure Notes * Manohar Key PA - 07/14/2014 1153 EST Images from the original note were not included. Central Catheter Insertion First Catheter This Session juvenile court liaison: Patient Location: [id number] Preliminary Data: Insertion Date: 07/14/14 Insertion Time: 1142 First White Sourer: Manohar Luis RN/MA Documenting Procedure: MAL/VLP Pre-procedure: Time Out / Final Moment Performed: Yes Hand Hygiene Immediately Prior To Procedure: Yes Site Disinfected-2% Chlorhex/70% Alcohol: Yes Procedure Site Completely Dry: Yes Entire Patient Draped in Sterile Fashion: Yes Intra-procedure: Sterile Gloves Used: Yes Cap, Mask, and Sterile Gown - Operators: Yes Sterile Field Maintained: Yes Cap and Mask Worn - All Personnel: Yes Post-procedure: Sterile Dressing Applied - Sterile Technique: Yes Dressing Dated And Timed: Yes Needle Passes: Physician Documentation Pre-Procedure: Procedure To Be Performed: New central line placement Indication: New indication Conditions Present: Other (Comment) (Infected Lumbar hardware) Line Priority: Stat Follow-Up X-ray: Placed under fluoro Consent Obtained: No The patient and/or family have been provided education/training to minimize the risk of central line-associated bloodstream infections. Central Line Type: Central Catheter Type: PICC PICC Type: Solo PICC Central Line Details: Line Location: Right;Basilic Line Lumens (#): Double Central Line Size: 5 Fr Line Coating: Non-antimicrobial coated Line Trim Length: 42 cm Line External Length: (0 cm) Line Securement Device: Statlock device Responsible Service / IR Details: Responsible Service: IR Lidocaine 1% - Route/Dose (cc's): Subcutaneous;Intradermal;4 Fluoroscopy Time (min): 0.1 Patient Condition At Completion Of Case: Stable Central Line Materials and Methods: Number of Attempts: 1 Number of Sites Attempted: 1 Number of Kits Used: 1 Location Device Used: Angiography;Ultrasound Central Line Operators: Number Of Operators: 1 First White Sourer's Name: PIPPA Key PA-C First White Sourer's Title: ELADIO Supervision provided by Dr Torres. Unless otherwise noted, there were no complications, no blood loss and no cultures obtained. ELADIO Moon 07/14/2014 11:54 documented in this encounter Plan of Treatment Not on file documented as of this encounter Visit Diagnoses Not on filedocumented in this encounter Active and Recently Administered Medications Orders Medications Ordered That Surendra ht Not Have Been Administered Count Last Ordered Date First Ordered Date sodium chloride 0.9 % flush 10 mL 2 014 sodium chloride 0.9 % flush 20 mL 1 014 documented in this encounter Care Teams Proof Clerk Relationship Specialty Start Date End Date Tristan Collins MD PCP - General 06/26/11 05/12/23 documented as of this encounter
--- OUTSIDE RECORDS SUMMARY | 2024-02-29 08:21 | XMS_ITS | Encounter Summary ---
Author Organization [facility] Address [address] [place] [address] Care Team Providers Care Engine Specialist Name Role Phone Tristan Collins MD Primary Care Provider Unav ailable Reason for Referral * Consult, Test and Treat (Routine) - Closed Specialty Diagnoses / Procedures Referred By Contac t Referred To Contact Diagnoses Low back pain Lumbar radiculopathy Derek Veras PA-C [address] [place] [id number] Referral ID Status Reason Start Date Expiration Date V isits Requested Visits Authorized [id number] Closed Specialty Services Required 07/24/2011 1 1 Question Answer Reason for Request: back pain Comments TENS unit and instruction Reason for Visit * Reason Comments Back Pain Encounter Details Date Type Department Care Team (Late st Contact Info) Description 07/24/2011 14:30 EST Office Visit [facility] Spine Program - [place] [address] [place] [address] Derek Veras PA-C [address] [place] [phone] Low back pain; Lumbar radiculopathy Discharge Disposition: Auto Discharge Social History Tobacco [...] Dispensed Refills Start Date End Da te oxycodone-acetaminophen (PERCOCET) 5-325 mg per tablet Take 1 Tab by mouth 3 times daily as needed for Pain. 60 Tab 0 07/24/2011 09/19/2011 documented in this encounter Discharge Disposition Disposition Code Departure Means Destination Auto Discharge documented in this encounter Progress Notes * Derek Veras PA - 07/24/2011 1707 EST Mr Glaser presents with his director of product design and his to discuss his back pain and left lower extremity symptoms, which began upon awakening one night. His symptoms radiate through the left buttock,hip, groin and anterior thigh. Since our last visit, he has undergone an MRI of the lumbosacral spine and presents today for review of that exam. Overall, his symptoms are unchanged, although he had experienced some days of improvement in his symptoms and had felt quite well, but his symptoms typically come back and vacillate. OBJECTIVE: MRI of the LS spine dated 07/14/11: T2 weighted sagittal images reveal disk degenerationat 4-5 and 5-1 with disk bulges. At 5-1, he does have bilateral foraminal narrowing, left greater than right, with effacement of the exiting L5 root. No clear disk herniation or nerve root impingements. No sign of nerve root impingement at the foramens of L2-3 or 4-5 on the left. ASSESSMENT: [id number] gentleman with back pain, left lower extremity symptoms in an L3-4distribution, not clearly concordant with his MRI. Really only has a L5 root impingement at the foramen on the left. This could possibly account for his symptoms though he is a bit anxious and maybe finding some difficulty in describing the exact location of his discomfort. At any rate, we discussed options including expectant management and injection therapy and at this point, he would like to consider an injection. We discussed possibly continuing physical therapy and feels that is not helping his symptoms and at this point I think PT would provide only diminishing returns, that perhaps if he finds relief with an injection it may help him tolerate physical therapy in the future and we canhold off. At this point, his director of casework services agrees. PLAN: 1. TFESI at 5-S1 on the left, follow up with me two weeks post. 2. Gave him an out of work release note. 3. Gave him prescription for Percocet 1 tablet t.i.d. #60. If he takes more than 3 tablets a day, then I will not prescribe pain medications for him and made that very clear to him today. 4. If he finds little relief with this injection, I would suggest an EMG nerve conduction study to evaluate him for meralgia paresthetica and possibly a hip surgery consult to discuss possible intrinsic pathology of the hip that might generate his symptoms. I spent 15 minutes with 15 minutes of our time discussing symptoms, subjective complaints, reviewing his treatment options and radiographs. documented in this encounter Plan of Treatment Scheduled Referrals Name Type Priority Associated Diagnoses Orde r Schedule AMB CONSULT PHYSICAL THERAPY Outpatient Referral Routine Low back pain Lumbar radiculopathy Ordered: 07/24/2011 documented as of this encounter Visit Diagnoses Diagnosis Low back pain Lumbago Lumbar radiculopathy Thoracic or lumbosacral neuritis or radiculitis, unspecified documented in this encounter Care Teams Engine Specialist Relationship Specialty Start Date End Date Tristan Collins MD PCP - General 06/26/11 05/12/23 documented as of this encounter
--- OUTSIDE RECORDS SUMMARY | 2024-02-29 08:21 | XMS_ITS | Encounter Summary ---
Author Organization [facility] Address [address] [place] [address] Care Team Providers Care Rehabilitation Counselor Name Role Phone Tristan Collins MD Primary Care Provider Unav ailable Reason for Visit * Reason Onset Date Comments Medications Refill 09/16/2011 Encounter Details Date Type Department Care Team (Late st Contact Info) Description 09/16/2011 Refill [facility] [address] [facility] [place] [address] Teri Hemphill MD [address] [facility] [address] [place] [address] Medications Refill Social History Tobacco Use Types [...] * Telephone Encounter - Lisa Crowell - 09/16/2011 1621 EST Called in gabapentin prescription to pharmacy and patient aware. Hard copy destroyed. * Telephone Encounter - Tomasa Thao - 09/16/2011 1601 EST Pt went to [facility] in [place] and they didn't have the Rx for Neurontin. Please call them [phone]. documented in this encounter Plan of Treatment Not on file documented as of this encounter Visit Diagnoses Not on filedocumented in this encounter Care Teams Rehabilitation Counselor Relationship Specialty Start Date End Date Tristan Collins MD PCP - General 06/26/11 05/12/23 documented as of this encounter
--- OUTSIDE RECORDS SUMMARY | 2024-02-29 08:21 | XMS_ITS | Encounter Summary ---
Author Organization [facility] [place] [address] Care Team Providers Care Automatic Car Wash Attendant Name Role Phone Tristan Collins MD Primary Care Provider [phone] Encounter Details Date Type Department Care Team (Late st Contact Info) Description 03/12/2012 11:00 AM EDT [place] [phone] Savannah He, [facility] [place] [address] Social History Tobacco Use Types Packs/Day Years [...] on filedocumented in this encounter Care Teams Automatic Car Wash Attendant Relationship Specialty Start Date End Date Tristan Collins MD [address] [place] [address] PCP - General 10/30/11 07/06/18 documented as of this encounter
--- OUTSIDE RECORDS SUMMARY | 2024-02-29 08:21 | XMS_ITS | Encounter Summary ---
Author Organization [facility] [place] [address] Care Team Providers Care Color Grinder Name Role Phone Tristan Collins MD Primary Care Provider [phone] Encounter Details Date Type Department Care Team (Latest Contact Info) Description 03/12/2012 8:01 AM EDT - 03/12/2012 11:59 PM EDT Hospital [place] [phone] Postop check; Leg pain, left Social History Tobacco Use Types Packs/Day Years [...] - Weight 104.3 kg (230 lb) 03/12/2012 8:24 AM EDT Height - - Body Mass Index 37.12 01/01/2012 6:55 PM EDT documented in this encounter Medications at Time of Discharge Medication Sig Dispensed Refills Start Date End Date traZODone (DESYREL) 100 mg tablet Take 100 [...] tablet Take 25 mg by mouth daily. ibuprofen (ADVIL;MOTRIN) 800 mg tablet Take 800 mg by mouth every 8 hours. 06/10/2012 documented as of this encounter Miscellaneous Notes * Miscellaneous - Provider, Scanning - 03/25/2012 11:17 AM EDT documented in this encounter Plan of Treatment Not on file documented as of this encounter Procedures Procedure Name Priority Date/Time Associated Diagnosis Comments MRI LUMBAR SPINE WITH/WO CONTRAST Routine 03/12/2012 9:05 AM EDT Postop check Leg pain, left documented in this encounter Results * MRI lumbar spine with/WO contrast (03/12/2012 9:05 AM EDT) Anatomical Region Laterality Modality L-spine Magnetic Resonan ce 03/12/2012 9:05 AM EDT Narrative 03/12/2012 1:50 PM EDT Examination MR Lumbar Spine W/WO Gideon Clinical History S/P Lumbar fusion 01/01/12 with persistent increasing left leg pain; location evolving Comparison X-ray of the lumbar spine 02/11/2012. MRI of the lumbar spine from 07/14/2011. Technique Routine MRI of the lumbar spine was performed before and after administration of 20 mL of Magnevist IV contrast. Findings The patient is status post bilateral L4-S1 pedicle screw fusion without laminectomy and alignment is unchanged. Enhancing granulation tissue posterior to the lumbar vertebral bodies is identified along with expected post-operative enhancement of tissues superficial to the lumbar spine. ??No canal narrowing, new neural foraminal narrowing, or new disk herniation is identified, although the study is limited by the presence of hardware. A postoperative seroma is identified posterior to the L4-L5 lamina. No aggressive marrow signal abnormality is present. ??The conus terminates at L1-L2. ??The spinal cord signal is normal throughout. ?? Impression Postoperative changes as described above without evidence for complication. Film and interpretation reviewed by the attending Procedure Note Lopez Chapa MD - 03/12/2012 Examination MR Lumbar Spine W/WO Gideon Clinical History S/P Lumbar fusion 01/01/12 with persistent increasing left leg pain;location evolving Comparison X-ray of the lumbar spine 02/11/2012. MRI of the lumbar spine from 07/14/2011. Technique Routine MRI of the lumbar spine was performed before and afteradministration of 20 mL of Magnevist IV contrast. Findings The patient is status post bilateral L4-S1 pedicle screw fusion without laminectomy and alignment is unchanged. Enhancing granulation tissueposterior to the lumbar vertebral bodies is identified along with expectedpost-operative enhancement of tissues superficial to the lumbar spine. No canalnarrowing, new neural foraminal narrowing, or new disk herniation is identified,although the study is limited by the presence of hardware. A postoperative seromais identified posterior to the L4-L5 lamina. No aggressive marrow signal abnormality is present. The conus terminates at L1-L2. The spinal cordsignal is normal throughout. Impression Postoperative changes as described above without evidence forcomplication. Film and interpretation reviewed by the attending Rodolfo Land MD IMG MRI ORDERABLES documented in this encounter Visit Diagnoses Diagnosis Postop check Follow-up examination, following unspecified surgery Leg pain, left Pain in limb documented in this encounter Administered Medications Inactive Administered Medications - up to 3 most recent administrations Medication Order MAR Action Action Date Dose Rate Site gadopentetate dimeglumine (MAGNEVIST) injection 21 mL 21 mL (0.2 mL/kg/dose ? 104.3 kg), Intravenous, ONCE PRN, Per Protocol, Starting on Thu03/12/12 at 0824, 1 dose, Until Thu03/12/12 at 0852 Given 03/12/2012 8:52 AM EDT 21 mLs documented in this encounter Care Teams Color Grinder Relationship Specialty Start Date End Date Tristan Collins MD [address] [place] [address] PCP - General 10/30/11 07/06/18 documented as of this encounter
--- OUTSIDE RECORDS SUMMARY | 2024-02-29 08:21 | XMS_ITS | Encounter Summary ---
Author Organization [facility] Address [address] [place] [address] Care Team Providers Care Authorization Coordinator Name Role Phone Tristan Collins MD Primary Care Provider Unav ailable Encounter Details Date Type Department Care Team (Late st Contact Info) Description 08/20/2012 Results Only Imaging [facility] [phone] Juan Antonio Patel MD [address] [place] [phone] Social History Tobacco Use Types Packs/Day Years [...] Procedure Name Priority Date/Time Associated Diagnosis Comments NM BONE SPECT 08/31/2012 14:20 EST documented in this encounter Results * NM BONE SPECT (08/31/2012 14:20 EST) Anatomical Region Laterality Modality Other 08/31/2012 14:2 0 EST 08/31/2012 16:29 EST Narrative 08/31/2012 16:29 EST NM BONE SPECT ??Aug 31, 2012 02:20:00 PM Clinical History/Comments: degenerative disc disease, pseudarthrosis Comparison: CT dated 08/31/2012. Technique: 2.5 hours after IV injection of 19 mCi of Tc-99m MDP, planar and SPECT images were obtained of the lumbar spine. Findings: Study demonstrates 5 nonrib-bearing lumbar type vertebral bodies. Moderately increased radiotracer uptake is present within the facets bilaterally at L3-L4, left greater than right. The patient is status post posterior spinal fusion with hardware transfixing L4-S1. There is no evidence of hardware loosening or abnormal uptake associated with the hardware. There is incomplete incorporation of the disc graft at L5-S1 with moderately increased uptake at the posterior left lateral portion of the graft. A large, irregular osseous defect is present within the left iliac with associated mildly increased uptake, which presumably reflects an osseous graft donor site. Impression: 1. Status post posterior fusion of L4-S1 without evidence of hardware failure or loosening. There is incomplete incorporation of the disc graft at L5-S1 with moderately increased uptake at the posterior left lateral portion of the graft, which can be seen at least up to one year postoperatively and is not necessarily indicative of pseudoarthrosis. 2. Bilateral facet arthrosis at L3-L4, left greater than right. I have personally reviewed the images and the above interpretation and agree with the findings. Procedure Note Pedro Pablo Aviles MD - 08/31/2012 NM BONE SPECT Aug 31, 2012 02:20:00 PM Clinical History/Comments: degenerative disc disease, pseudarthrosis Comparison: CT dated 08/31/2012. Technique: 2.5 hours after IV injection of 19 mCi of Tc-99m MDP, planar and SPECT images were obtained of the lumbar spine. Findings: Study demonstrates 5 nonrib-bearing lumbar type vertebral bodies. Moderately increased radiotracer uptake is present within the facets bilaterally at L3-L4, left greater than right. The patient is status post posterior spinal fusion with hardware transfixing L4-S1. There is no evidence of hardware loosening or abnormal uptake associated with the hardware. There is incomplete incorporation of the disc graft at L5-S1 with moderately increased uptake at the posterior left lateral portion of the graft. A large, irregular osseous defect is present within the left iliac with associated mildly increased uptake, which presumably reflects an osseous graft donor site. Impression: 1. Status post posterior fusion of L4-S1 without evidence of hardware failure or loosening. There is incomplete incorporation of the disc graft at L5-S1 with moderately increased uptake at the posterior left lateral portion of the graft, which can be seen at least up to one year postoperatively and is not necessarily indicative of pseudoarthrosis. 2. Bilateral facet arthrosis at L3-L4, left greater than right. I have personally reviewed the images and the above interpretation and agree with the findings. Juan Antonio Patel MD IMG NM ORDERABLES documented in this encounter Visit Diagnoses Not on filedocumented in this encounter Care Teams Authorization Coordinator Relationship Specialty Start Date End Date Tristan Collins MD PCP - General 06/26/11 05/12/23 documented as of this encounter
--- OUTSIDE RECORDS SUMMARY | 2024-02-29 08:21 | XMS_ITS | Encounter Summary ---
Author Organization [facility] Address [address] [place] [address] Care Team Providers Care Water Purification Chemist Name Role Phone Tristan Collins MD Primary Care Provider Unav ailable Reason for Visit * Reason Comments Back Pain Leg Pain Encounter Details Date Type Department Care Team (Late st Contact Info) Description 09/22/2011 14:30 EST Office Visit [facility] Spine Program - [address] [place] [address] Derek Veras PA-C [address] [place] [address] [place] [phone] Low back pain; Meralgia paresthetica Social History Tobacco Use Types Packs/Day Years [...] Progress Notes * Derek Veras PA - 09/22/2011 1428 EST Shiva presents with back and leg pain. On our first visit, he had pain radiating into the left anterior thigh in a distribution that would resemble meralgia paresthetica, although since our last visit he has noticed more pain radiating through the buttock, posterolateral thigh, lateral calf and into the foot, with new right lower extremity symptoms in a similar distribution. His left anterior thighsymptoms have subsided. Left lower extremity symptoms could be a remnant of symptoms from his previous injection, the transforaminal at L5-S1. I cannot clearly account for the right lower extremity symptoms. Since our last visit, he has undergone an EMG nerve conduction study performed by Dr Rodriguez and presents today to review that exam. OBJECTIVE: EMG 09/19/11: According to Dr Rodriguez's notation, this was a normal study. Her recommendation is to move forward with a left SI injection versus left L4-5 and L5-S1 facet injections. ASSESSMENT: A 41-year-old gentleman with back pain, musculoskeletal diskogenic. PLAN: 1. Facet injections versus SI injection as per Dr Hemphill, anesthesiology. 2. Continue current pain management regime. 3. The patient is titrating up on gabapentin. 4. Follow up with me two weeks post-injection to discuss symptoms, subjective complaints and move forward with his treatment options. I spent 15 minutes, with 15 minutes of our time spent [id number] discussing symptoms, subjective complaints and reviewing his treatment options. documented in this encounter Plan of Treatment Not on file documented as of this encounter Visit Diagnoses Diagnosis Low back pain Lumbago Meralgia paresthetica documented in this encounter Care Teams Water Purification Chemist Relationship Specialty Start Date End Date Tristan Collins MD PCP - General 06/26/11 05/12/23 documented as of this encounter
--- OUTSIDE RECORDS SUMMARY | 2024-02-29 08:21 | XMS_ITS | Encounter Summary ---
Author Organization [facility] [place] [address] Care Team Providers Care Arranger Assembler Name Role Phone Tristan Collins MD Primary Care Provider [phone] Reason for Referral * Consultation (Routine) - Declined by Patient Specialty Diagnoses / Procedures Referred By Contac t Referred To Contact Orthopaedics Diagnoses Lumbar disc disease with radiculopathy Derek Henry MD [facility] [place] [address] [facility] [place] [address] [place] [address] Referral ID Status Reason Start Date Expiration Date Visits Requested Visits Authorized [id number] Declined by Patient Consult, Test & Treat 2 12/07/2012 1 1 Reason for Visit * Reason Comments Bilateral Leg Pain Back Pain Encounter Details Date Type Department Care Team (Late st Contact Info) Description 06/10/2012 10:20 AM EST Office [place] [phone] Derek Henry MD [facility] [place] [address] Lumbar disc disease with radiculopathy; L4-S1 PIF with L5-S1 L TLIF Discharge [...] Sign Reading Time Taken Comments Blood Pressure 120/80 06/10/2012 10:53 AM EST Pulse - - Temperature - - Respiratory Rate - - Oxygen Saturation - - Inhaled Oxygen Concentration - - Weight 110.7 kg (244 lb) 06/10/2012 10:53 AM EST Height 167.6 cm (5' 6) 06/10/2012 10:53 AM EST Body Mass Index 39.38 06/10/2012 10:53 AM EST documented in this encounter Patient Instructions * Patient Instructions* Derek Henry MD - 06/10/2012 12:01 PM EST Day 1. Take new single pill of nortripytline Day 3. Stop ibuprofen, start relafen (nabumetone) Day 5 Start lyrica documented in this encounter Progress Notes * Derek Henry MD - 06/10/2012 11:55 AM EST Date of Injury: 05/16/11 Date of Surgery: 01/03/12 Name of Employer: [employer] Work Status: OOW since 05/22/11 Chief Complaint: left lbp to left foot Interval Hx: After failing conservative therapy, on January 03, 2012 had L4-5-S1 TLIF and ICBG with Dr. Land. Post operative x-ray and MRI showed all in alignment and no concerns. Last seen by Dr. Land for surgical follow-up and next f/u routine in 3.5 months. Current Sx: Has had leg pain alternating between right and left leg. Over last 6 weeks he has had constant right leg pain at 8/10 in bottom of foot from posterior of thigh to ant leg. He has constant tingling over right ant thigh and bottom of foot. Thigh dysesthesias. These latter have been present since surgery - probably positional. Also has constant LBP just below incision. He uses quad cane to reduce lancinating pain in leg when walking. He also reports on-going mild pulsating pain in left thigh. Raretingling and numbness of sole of left foot. Denies any focal weakness. No constitutional sx. No GI/ sx. His low back pain is worse than leg pain. Triggers: none. Lancinating pain has life of its own. Negative valsalva Alleviated by:changing posture every 30 mins. TENS - helpful for leg pain, significant palliation when using. Treatment post-op: aquatx with [facility]. 8 weeks, 4 times a week. PT did not feel beneficial to continue. Some concern re: symptom magnification. Notes no obvious functional improvement in pool and exercise was painful and feels like he can do even less at home. No treatment in past [...] sit about 30 mins, stands for 30 mins. Feeds horses. Cannot lug buckets of water. Does laundry. Uanble to put socks on without the aid. Past Medical History: Illnesses: Hypertension Depression - irritable, frustrated. Not wanting to go out due to pain. 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 Has been doing this type of work for about 9 years. Physical Examination: Spine Observations: He appears in mild distress though stays seated during the interview of and counselling . He has a well-healed midline lower lumbar surgical scar Posture: He stands with 5 degrees of flexion, but his spine is straight with normal lumbar lordosis Gait: His gait is antalgic, very slow and with a shortened right leg stance. He brings a quad cane to the exam roolm Palpation: There is no tenderness of the paraspinal, but he is tender at through the sacrum. There is no greater trochanteric or sciatic tenderness. Range of motion: Flexion to about 40??. Extension is limited to about 5??. Lateral bending is symmetric at about 20??. Motor: Is 5 out of 5+ out the lower extremities Sensory: Decreased to sharp touch over the dorsum and sole of his right foot and also over the right anterior lateral thigh where he had been lying on the operative. Also, medial left leg, but normalfoot sensation. Note that it was his LEFT foot that was numb last visit. Deep tendon reflexes: 1+ throughout the lower extremities with augmentation. Straight Leg Raise: In the seated and supine position straight leg raise produces sciatic pain on the right. It was + on the LEFT last visit. Assessment: 1.. Chronic low back and left leg pain and failure of improvement after conservative therapy including SUSI and left SI joint injections who went on to a TESI have L4-S1 now 5 months post operativelywith right sciatic pain (was on left last visit) and some soft objective radicular findings on the right MRI Imaging 2-3 months ago was benign. Some symptom magnification and pain avoidance behavior.I doubt any new anatomic abnormality but will check L/S spine film. At this point best approach will be to try to achieve some additional comfort with meds and to refer to FRP. Plan: 1. 20 of this 25 minute visit was spent in counseling him with respect to a history of post fusion healing and prognosis, medication options and importance of restoring his function. I explained med instructions. 2. L/S spine film 3. disposition: meds as ordered, adding lyrica; nabumetone instead of ibuprofen, increase nortriptyline to 75 mg. Refer to FRP. Will check after initial assessment. documented in this encounter Plan of Treatment Scheduled Referrals Name Type Priority Associated Diagnoses Orde r Schedule Referral to GAP Assessment Outpatient Referral Routine Lumbar disc disease with radiculopathy Ordered: 06/10/2012 documented as of this encounter Visit Diagnoses Diagnosis Lumbar disc disease with radiculopathy Displacement of lumbar intervertebral disc without myelopathy L4-S1 PIF with L5-S1 L TLIF Sciatica documented in this encounter Care Teams Arranger Assembler Relationship Specialty Start Date End Date Tristan Collins MD [address] [place] [address] PCP - General 10/30/11 07/06/18 documented as of this encounter
--- OUTSIDE RECORDS SUMMARY | 2024-02-29 08:21 | XMS_ITS | Encounter Summary ---
[place] [address] Care Team Providers Care Tug Boat Engineer Name Role Phone Tristan Collins MD Primary Care Provider [phone] Encounter Details Date Type Department Care Team (Late st Contact Info) Description 03/11/2012 Abstract [place] [phone] Gila Mejía, [facility] Social History Tobacco Use Types Packs/Day Years [...] on filedocumented in this encounter Care Teams Tug Boat Engineer Relationship Specialty Start Date End Date Tristan Collins MD [address] [place] [address] PCP - General 10/30/11 07/06/18 documented as of this encounter
--- OUTSIDE RECORDS SUMMARY | 2024-02-29 08:21 | XMS_ITS | Encounter Summary ---
Author Organization [facility] Address [address] [place] [address] Care Team Providers Care Chief Security Officer Name Role Phone Tristan Collins MD Primary Care Provider Unav ailable Encounter Details Date Type Department Care Team (Late st Contact Info) Description 08/20/2012 Results Only Imaging [facility] [phone] Juan Antonio Patel MD [address] [place] [phone] Social History Tobacco Use Types Packs/Day [...] Name Priority Date/Time Associated Diagnosis Comments NM INJECTION NO CHARGE 08/31/2012 10:16 EST documented in this encounter Results * NM INJECTION NO CHARGE (08/31/2012 10:16 EST) Anatomical Region Laterality Modality Other 08/31/2012 10:1 6 EST Narrative 08/31/2012 10:16 EST Non Reportable Exam Procedure Note 08/31/2012 Non Reportable Exam Juan Antonio Patel MD IMG NM ORDERABLES documented in this encounter Visit Diagnoses Not on filedocumented in this encounter Care Teams Chief Security Officer Relationship Specialty Start Date End Date Tristan Collins MD PCP - General 06/26/11 05/12/23 documented as of this encounter
--- OUTSIDE RECORDS SUMMARY | 2024-02-29 08:21 | XMS_ITS | Encounter Summary ---
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 Encounter Details Date Type Department Care Team (Late st Contact Info) Description 03/30/2012 Telephone [place] [phone] Marisabel Mc, RN Other (letter clearing for DOT physical) Social History Tobacco Use Types Packs/Day Years Used Date Smoking Tobacco: Never Smokeless Tobacco: Current Chew Sex and Gender Information Value Date Recorded Sex Assigned at Not on file Gender Identity Not on file Sexual Orientation Not on file documented as of this encounter Miscellaneous Notes * Telephone Encounter - Marisabel Mc, RN - 03/30/2012 12:41 PM EDT Recieved call from pt who is s/p TLIF and ICBG with Dr. Land on January 03, 2012 had L4-5-S1; has since met with Dr Mendoza, [facility]. 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 But to do so he needs a current physical card. Because he has not been cleared to RTW he is asking if he could have a letter clearing him to have the DOT physical. Pt reports that this is not a physically demending physical; involves no lifting, pushing pulling, climbing; states it is like any other routine physical exam with a tox screen. Requests letter be faxed to Tomasa Renee, fax # [phone]. Letter as signed by dr Land faxed as requested. documented in this encounter Plan of Treatment Not on file documented as of this encounter Visit Diagnoses Not on filedocumented in this encounter Care Teams Agency Sales Director Relationship Specialty Start Date End Date Tristan Collins MD [address] [place] [address] PCP - General 10/30/11 07/06/18 documented as of this encounter
--- OUTSIDE RECORDS SUMMARY | 2024-02-29 08:21 | XMS_ITS | Encounter Summary ---
Author Organization [facility] Address [address] [place] [address] Care Team Providers Care Bricklayer Paving Brick Name Role Phone Tristan Collins MD Primary Care Provider Unav ailable Encounter Details Date Type Department Care Team (Late st Contact Info) Description 08/20/2012 Results Only Imaging [facility] [phone] Juan Antonio Patel MD [address] [place] [phone] Social History Tobacco Use Types Packs/Day [...] Name Priority Date/Time Associated Diagnosis Comments CT LUMBAR SPINE WO CONTRAST 08/31/2012 13:21 EST documented in this encounter Results * CT LUMBAR SPINE WO CONTRAST (08/31/2012 13:21 EST) Anatomical Region Laterality Modality Other 08/31/2012 13:2 1 EST 09/01/2012 16:00 EST Narrative 09/01/2012 16:[address] LUMBAR SPINE WO/CONTRAST ??Aug 31, 2012 01:21:00 PM Clinical history/Comments: degenerative disk disease, pseudartherosis ?? Comparison: A of the lumbar spine was performed on the same date of service. Additionally, there is an MRI of the lumbar spine from July 14, 2011 which is available for comparison. Technique: CT scan of the lumbar spine was performed with volumetric helical technique and reconstructed in axial, sagittal, and coronal planes. Contrast was not administered. Findings: For analysis of the SPECT images, please refer to the dedicated report for that portion of the examination The lumbar vertebral bodies appear well aligned in all 3 planes. There is minimal leftward scoliosis at the thoracolumbar junction and minimal rightward scoliosis in the lower lumbar spine, which may be positional. Posterior fusion hardware is seen from L4 through S1. There is no evident loosening of the pedicle screws and no fracture of the fusion rods. There appears to be a small amount of bone graft material around the posterior elements, although this appears to be poorly incorporated. The interbody bone graft at L5-S1 appears to be fragmented and not fused with the superior endplate of S1 anteriorly. A large right anterior lateral osteophyte is seen at and T11-T12. Mild degenerative disc changes are present at T11-L1, L1-L2, L3-L4, and L4-L5. There is minimal retrolisthesis of L3 on L4 which appears to be new since the comparison MRI from June 2011. Moderate disc height loss at L4-L5 appears grossly unchanged. Mild to moderate L5 foraminal narrowing is not grossly different than prior 2011 MRI. Lucency in the left posterior iliac bone this presumably secondary to used as a donor site during the patient's prior fusion. Mild degenerative changes are seen in the sacroiliac joints. No fractures are identified. The visualized portions of the abdomen are normal. There is edema and/or scarring in the soft tissues overlying the surgical site, but no drainable fluid collection or abscess. Impression: 1. Status post posterior spinal fusion from L4 through S1 with an interbody graft placement at L5-S1. 2. Apparent fragmentation incomplete incorporation of the interbody bone graft. Please refer to the SPECT report for further details. 3. There is evidently bone graft material around the posterior elements, although this is poorly incorporated. 4. Mild to moderate degenerative disc disease as described above affecting the lower thoracic spine and most of the lumbar vertebral body levels. 5. Postoperative changes in the subcutaneous tissues of the lower back. I have personally reviewed the images and the above interpretation and agree with the findings. Procedure Note Tad Alberto MD - 09/01/2012 CT LUMBAR SPINE WO/CONTRAST Aug 31, 2012 01:21:00 PM Clinical history/Comments: degenerative disk disease, pseudartherosis Comparison: A of the lumbar spine was performed on the same date of service. Additionally, there is an MRI of the lumbar spine from July 14, 2011 which is available for comparison. Technique: CT scan of the lumbar spine was performed with volumetric helical technique and reconstructed in axial, sagittal, and coronal planes. Contrast was not administered. Findings: For analysis of the SPECT images, please refer to the dedicated report for that portion of the examination The lumbar vertebral bodies appear well aligned in all 3 planes. There is minimal leftward scoliosis at the thoracolumbar junction and minimal rightward scoliosis in the lower lumbar spine, which may be positional. Posterior fusion hardware is seen from L4 through S1. There is no evident loosening of the pedicle screws and no fracture of the fusion rods. There appears to be a small amount of bone graft material around the posterior elements, although this appears to be poorly incorporated. The interbody bone graft at L5-S1 appears to be fragmented and not fused with the superior endplate of S1 anteriorly. A large right anterior lateral osteophyte is seen at and T11-T12. Mild degenerative disc changes are present at T11-L1, L1-L2, L3-L4, and L4-L5. There is minimal retrolisthesis of L3 on L4 which appears to be new since the comparison MRI from June 2011. Moderate disc height loss at L4-L5 appears grossly unchanged. Mild to moderate L5 foraminal narrowing is not grossly different than prior 2011 MRI. Lucency in the left posterior iliac bone this presumably secondary to used as a donor site during the patient's prior fusion. Mild degenerative changes are seen in the sacroiliac joints. No fractures are identified. The visualized portions of the abdomen are normal. There is edema and/or scarring in the soft tissues overlying the surgical site, but no drainable fluid collection or abscess. Impression: 1. Status post posterior spinal fusion from L4 through S1 with an interbody graft placement at L5-S1. 2. Apparent fragmentation incomplete incorporation of the interbody bone graft. Please refer to the SPECT report for further details. 3. There is evidently bone graft material around the posterior elements, although this is poorly incorporated. 4. Mild to moderate degenerative disc disease as described above affecting the lower thoracic spine and most of the lumbar vertebral body levels. 5. Postoperative changes in the subcutaneous tissues of the lower back. I have personally reviewed the images and the above interpretation and agree with the findings. Juan Antonio Patel MD IMG CT ORDERABLES documented in this encounter Visit Diagnoses Not on filedocumented in this encounter Care Teams Bricklayer Paving Brick Relationship Specialty Start Date End Date Tristan Collins MD PCP - General 06/26/11 05/12/23 documented as of this encounter
--- OUTSIDE RECORDS SUMMARY | 2024-02-29 08:21 | XMS_ITS | Clinical Summary ---
Author Organization [facility] Address [facility] [place] [address] Care Team Providers Care Conformal Pad Former Name Role Phone Unknown Primary Care Provider Unavailabl e Allergies No known active allergies Medications Medication Sig Dispensed Refills Start Date End Date Status chlorthalidone (HYGROTEN) 50 mg tablet Take 25 mg by mouth daily. Active citalopram (CELEXA) 20 mg tablet Take 20 mg by mouth daily. Active acetaminophen (TYLENOL) 500 mg tablet Take 1,000 mg by mouth every 8 hours. Active traZODone (DESYREL) 100 mg tablet Take 100 mg by mouth nightly. Active multivitamin (THERAGRAN) tablet Take 1 tablet by mouth daily. Active POTASSIUM CHLORIDE ORAL Take 1,000 mg by mouth daily. Active nortriptyline (PAMELOR) 75 mg capsuleIndications:Lum bar disc disease with radiculopathy Take 1 capsule by mouth nightly. 30 capsule 2 06/10/2012 Active pregabalin (LYRICA) 25 mg capsuleIndications:Lum bar disc disease with radiculopathy Take 1 capsule by mouth 2 times daily. 60 capsule 2 06/10/2012 Active Active Problems Problem Noted Date Diagnosed Date Lumbar disc disease with radiculopathy 2 Hypertension 01/01/2012 Chewing tobacco use 01/01/2012 Obesity, Class II, BMI 35-39.9 01/01/2012 Alcohol abuse 01/01/2012 L4-S1 PIF with L5-S1 L TLIF 10/30/2011 Social History Tobacco Use Types Packs/Day Years Used Date Smoking Tobacco: Never Smokeless Tobacco: Current Chew Sex and Gender Information Value Date Recorded Sex Assigned at Not on file Gender Identity Not on file Sexual Orientation Not on file Last Filed Vital Signs Vital Sign Reading Time Taken Comments Blood Pressure 120/80 06/10/2012 10:53 AM EST Pulse 78 01/04/2012 5:40 AM EDT Temperature 36.6 ??C (97.9 ??F) 01/04/2012 5:40 AM ED T Respiratory Rate 20 01/04/2012 5:40 AM EDT Oxygen Saturation 98% 01/04/2012 5:40 AM EDT Inhaled Oxygen Concentration - - Weight 110.7 kg (244 lb) 06/10/2012 10:53 AM EST Height 167.6 cm (5' 6) 06/10/2012 10:53 AM EST Body Mass Index 39.38 06/10/2012 10:53 AM EST Plan of Treatment Health Maintenance Due Date Last Done Comments CT Colonography 1968 Colonoscopy 1968 Colorectal Cancer Screening 1968 FIT DNA 1968 FIT 1968 Sigmoidoscopy (10 year) with FIT yearly 1968 Sigmoidoscopy 1968 HIV screen 1986 Hepatitis C Screening 1986 Lipid Screening 1986 Hepatitis B vaccine (0-59 yrs) (1) 1987 Tdap adult 1987 Tetanus vaccine 1987 Zoster vaccine (1 of 2) 2018 Advance Directive 2023 Covid-19 Vaccine (1 - 2022-24 season) 2023 Influenza (Flu) vaccine (1 o f 1 - Influenza standard series) 03/27/2024 Medical Devices Implanted Type Area Vp Product Management Device Identifier Shelf Expiration Date Model / Serial / Lot Allograft,Sust ain,Rt Arch,7mm ([id number]) (Autoreq) - [id number] Implanted:Qty: 1 on 01/01/2012 at [facility] IMPLANTS DO NOT USE [employer] - [id number] 304.607 / / Cap,Ed,Sarles, Lckng ([id number]) ([employer]q) - [id number] Implanted:Qty: 6 on 01/01/2012 at [facility] [employer]PLANT[employer] DO NOT USE [employer] - [id number] 124.000 / / Screw,Pyxl,Rev ere,6.5x30mm ([id number]) ([employer]) - [id number] Implanted:Qty: 1 on 01/01/2012 at [facility] [employer]PLANT[employer] DO NOT USE [employer] - [id number] 124.462 / / Screw,Pyxl,Rev ere,6.5x35mm ([id number]) ([employer]) - [id number] Implanted:Qty: 1 on 01/01/2012 at [facility] IMPLANTS DO NOT USE [employer] - [id number] 124.463 / / Chuck,Spnl,Rever e,Crvd,5.5x75m m ([id number]) ([employer]) - [id number] Implanted:Qty: 2 on 01/01/2012 at [facility] IMPLANTS DO NOT USE [employer] - [id number] 124.675 / / Screw,Pyxl,Rev ere,6.5x40mm ([id number]) ([employer]) - [id number] Implanted:Qty: 1 on 01/01/2012 at [facility] IMPLANTS DO NOT USE [employer] - [id number] 124.464 / / Screw,Pyxl,Rev ere,6.5x45mm ([id number]) ([employer]) - [id number] Implanted:Qty: 3 on 01/01/2012 at [facility] IMPLANTS DO NOT USE [employer] - [id number] 124.465 / / Advance Directives Documents on File Type Date Recorded Patient Strike Out Machine Operator Expl anation Advance Directives and Livin g Will 01/01/2012 7:08 AM * Full Code (Latest Code Status on File) Date Activated Date Inactivated Comments 01/01/2012 5:33 PM 01/04/2012 5:09 PM Care Teams Conformal Pad Former Relationship Specialty Start Date End Date Unknown None PCP - General 07/07/18
--- OUTSIDE RECORDS SUMMARY | 2024-02-29 08:21 | XMS_ITS | Encounter Summary ---
Author Organization [facility] Address [address] [place] [address] Care Team Providers Care Purchasing Analyst Name Role Phone Tristan Collins MD Primary Care Provider Unav ailable Encounter Details Date Type Department Care Team (Latest Contact Info) Description 07/14/2011 15:49 EST - 07/14/2011 23:59 EST Hospital Encounter [facility] [place] [address] Marcial Dawn MD Discharge Disposition: Home or Self Care Social [...] Take 25 mg by mouth daily. 11/04/2021 ibuprofen (MOTRIN) 800 mg tablet Take 800 mg by mouth every 8 hours as needed. 04/05/2015 methylPREDNISolone (MEDROL DOSEPACK) 4 mg tablet follow package directions 1 Tab 0 06/27/2011 08/18/2011 Multivitamins with Minerals Tab Take 1 Tab by mouth daily. 04/05/2015 omeprazole (PRILOSEC) 20 mg capsule Take 20 mg by mouth daily. 04/05/2015 Potassium Gluconate 550 mg Tab Take 1 Tab by mouth daily. 04/05/2015 tramadol (ULTRAM) 50 mg tablet Take 50 mg by mouth every 8 hours as needed. 08/18/2011 documented as of this encounter Discharge Disposition Disposition Code Departure Means Destination Home or Self Retirement documented in this encounter Plan of Treatment Not on file documented as of this encounter Procedures Procedure Name Priority Date/Time Associated Diagnosis Comments ORBITS FOR FOREIGN BODY 07/14/2011 16:04 EST documented in this encounter Results * ORBITS FOR FOREIGN BODY (07/14/2011 16:04 EST) Anatomical Region Laterality Modality Other 07/14/2011 16:0 4 EST 07/14/2011 16:16 EST Narrative 07/14/2011 16:16 EST ORBITS FOR FOREIGN BODY ??Jul 14, 2011 04:04:00 PM Clinical History/Comments: 724.2-PIXANCR-UTZ-9-CM 724.4-THORACIC OR LUMBOSACRAL NEURITIS OR RADICULITIS, [id number]-7-CM back and left leg pain in an L2 L3 distribution. . Two views of the orbits and an exposed plate show no evidence of metallic foreign body over the orbits. Procedure Note 07/14/2011 ORBITS FOR FOREIGN BODY Jul 14, 2011 04:04:00 PM Clinical History/Comments: 724.4-IAQWIKC-LEV-9-CM 724.4-THORACIC OR LUMBOSACRAL NEURITIS OR RADICULITIS, [id number]-1-CM back and left leg pain in an L2 L3 distribution. . Two views of the orbits and an exposed plate show no evidence of metallic foreign body over the orbits. Derek Veras PA-C IMMable DIAGNOSTIC IMAGI NG ORDERABLES documented in this encounter Visit Diagnoses Not on filedocumented in this encounter Care Teams Purchasing Analyst Relationship Specialty Start Date End Date Tristan Collins MD PCP - General 06/26/11 05/12/23 documented as of this encounter
--- OUTSIDE RECORDS SUMMARY | 2024-02-29 08:21 | XMS_ITS | Encounter Summary ---
[place] [address] Care Team Providers Care Sales Order Coordinator Name Role Phone Tristan Collins MD Primary Care Provider [phone] Reason for Visit * Reason Onset Date Comments Medication Refill 01/09/2012 taking three 2 mg Hydromorphone Q 4 hours for post op pain. Encounter Details Date Type Department Care Team (Late st Contact Info) Description 01/09/2012 Refill [place] [address] Parveen Salas, RN Social History Tobacco Use Types Packs/Day Years Used Date Smoking Tobacco: Never Smokeless Tobacco: Current Chew Sex and Gender Information Value Date Recorded Sex Assigned at Not on file Gender Identity Not on file Sexual Orientation Not on file documented as of this encounter Miscellaneous Notes * Telephone Encounter - Parveen Salas RN - 01/09/2012 10:12 AM EDT Received call from patient requesting refill of Hydromorphone 2 mg tabs, he is taking 2-3 tabs Q 4 hours for post op pain. Patient is s/p 6/7/12 S/P L4-S1 PISF with L5-S1 TLIF from leftside. He reports that during the day he is using the 2 tabs dose and using the 3 tabs dose at night. He reports that he has 16 tabs on hand. He is requesting refill be mailed to [email or web address] in [place], [place]. He states reports that he is not able to have someone pharmacy picking technician a prescription from [facility] due to distance and is aware that current supply on hand will not cover until a prescription can be mailed. Will connect with his local PCP, to see if they are willing to provide an interim supply to cover time mailing. Spoke with PCP's nurse, Siomara, she will discuss coverage with PCP and they will contact patient directly. Above request for refill discussed with Rhina Seth APRN in Dr. Land's absence. She authorized refill, changing dose and frequency to 1-2 tabs Q 4-6 hours. Patient was contacted and informed that refill was completed, he reports that PCP's office has contacted him and they do have a prescription for a small supply of hydromorphone to cover while awaiting the mailed refill. documented in this encounter Plan of Treatment Not on file documented as of this encounter Visit Diagnoses Not on filedocumented in this encounter Care Teams Sales Order Coordinator Relationship Specialty Start Date End Date Tristan Collins MD [address] [place] [address] PCP - General 10/30/11 07/06/18 documented as of this encounter
--- OUTSIDE RECORDS SUMMARY | 2024-02-29 08:21 | XMS_ITS | Encounter Summary ---
Author Organization [facility] Address [facility] [place] [address] Care Team Providers Care Counselor At Law Name Role Phone Tristan Collins MD Primary Care Provider [phone] Encounter Details Date Type Department Care Team (Latest Contact Info) Description 02/11/2012 9:39 AM EDT - 02/11/2012 11:59 PM EDT Hospital Encounter XRay at [address] [place] [address] Sciatica of left side Social History Tobacco Use Types Packs/Day Years Used Date Smoking Tobacco: Never Smokeless Tobacco: Current Chew Sex and Gender Information Value Date Recorded Sex Assigned at Not on file Gender Identity Not on file Sexual Orientation Not on file documented as of this encounter Medications at Time of Discharge Medication Sig Dispensed Refills Start Date End Date acetaminophen (TYLENOL) 500 mg tablet Take 1,000 mg by mouth every 8 hours. citalopram (CELEXA) 20 mg tablet Take 20 mg by mouth daily. chlorthalidone (HYGROTEN) 50 mg tablet Take 25 mg by mouth daily. documented as of this encounter Plan of Treatment Not on file documented as of this encounter Procedures Procedure Name Priority Date/Time Associated Diagnosis Comments XR LUMBAR SPINE 2 OR 3 VIEWS Routine 02/11/2012 9:58 AM EDT Sciatica of left side documented in this encounter Results * XR lumbar spine 2 or 3 views (02/11/2012 9:58 AM EDT) Anatomical Region Laterality Modality L-spine N/A Radiographic Celina ging 02/11/2012 9:58 AM EDT Narrative 02/11/2012 11:50 AM EDT Examination LSPINE 2 OR 3 VIEWS Clinical History Reason for exam and clinical history: s/p surgery; Comparison December 31, 2011. Technique AP and lateral lumbar spine. Findings 5 [id number]-ymy-wklgnvr lumbar type vertebrae are present. There has been bilateral igor and pedicle screw fusion of L4-S1. Grade 1 anterolisthesis of L5 on S1 is present but unchanged. Multilevel degenerative disease is seen. In particular, there is narrowing of L4-L5. The previously present drain has been removed. Impression No significant change in the appearance of the lumbar spine status post fusion. Procedure Note Surinder Silveira MD - 02/11/2012 Examination LSPINE 2 OR 3 VIEWS Clinical History Reason for exam and clinical history: s/p surgery; Comparison December 31, 2011. Technique AP and lateral lumbar spine. Findings 5 cpc-kev-yejamyz lumbar type vertebrae are present. There has been bilateral igor and pedicle screw fusion of L4-S1. Grade 1 anterolisthesis of L5 on S1 is present but unchanged. Multilevel degenerative disease is seen. In particular, there is narrowingof L4-L5. The previously present drain has been removed. Impression No significant change in the appearance of the lumbar spine status postfusion. Rodolfo Land MD IMG DX ORDERABLES documented in this encounter Visit Diagnoses Diagnosis Sciatica of left side Sciatica documented in this encounter Care Teams Counselor At Law Relationship Specialty Start Date End Date Tristan Collins MD [address] [place] [id number] PCP - General 10/30/11 07/06/18 documented as of this encounter
--- OUTSIDE RECORDS SUMMARY | 2024-02-29 08:21 | XMS_ITS | Encounter Summary ---
[place] [address] Care Team Providers Care Concrete Handler Name Role Phone Tristan Collins MD Primary Care Provider [phone] Reason for Visit * Reason Onset Date Comments Post-op Problem 03/02/2012 left buttock and leg pain Encounter Details Date Type Department Care Team (Late st Contact Info) Description 03/02/2012 Telephone [place] [id number] Marisabel Mc RN Post-op Problem (left buttock and leg pain) Social History Tobacco Use Types Packs/Day Years Used Date Smoking Tobacco: Never Smokeless Tobacco: Current Chew Sex and Gender Information Value Date Recorded Sex Assigned at Not on file Gender Identity Not on file Sexual Orientation Not on file documented as of this encounter Miscellaneous Notes * Telephone Encounter - Marisabel Mc RN - 03/02/2012 3:36 PM EDT Call received from Mr Glaser who is s/p L4-5-S1 Posterior fusion with instrumentation and L5-S1 TLIF from the left side with 7mm PEEK cage, and ICBG from the left iliac crest on 01/01/[address] Land. Patient was seen in clinic last on 02/11/12. Patient reports that he had postoperative symptoms at the initial postop check but was advised by Dr Land that it was early and it was suggested he give it more time. Pateint calling today to report that he's attended pool therapy X3. That his Low back, buttock and bilat leg pain is persisting. Reports lef tleg pain > right; reports pain radiates down into his left buttock, down posterior left leg into his foot and has most recently been present In his anterior left kwno. Mr Glaser has pending surgical FU 03/23; is interested in being seen sooner if Dr Land agreeable. Informed pt that I would update Dr Land; look into earlier appt options, and ask Dr Land ifupdated imaging was warrented (most recent imaging on file includes: pre-op LS spine MRI dated 07/14/11, and LS sine Xray dated 02/11/12. 03/03/12 Received FU call from pt indicating he had not yet heard about earlier appt. Have requested Alayna call pt to advise of appt opportunities the wks of 03/08 or 03/15; explained that I had not yet received response re need for imaging so that if that is requested by Dr Land we will arrange imaging separately. 03/05/12 Spoke with pt following review with Dr Land; MRI order placed; advised that efforts would be made to arrange for MRI and appt with Dr Land sameday. MRI safety questions asked. Call transferred to Alayna to assist with appt. Pt is interested in having imaging and appt in advance of 03/23if possible. documented in this encounter Plan of Treatment Not on file documented as of this encounter Results * MRI lumbar spine [...] surgery Leg pain, left Pain in limb Postop check Follow-up examination, following unspecified surgery Leg pain, left Pain in limb documented in this encounter Care Teams Concrete Handler Relationship Specialty Start Date End Date Tristan Collins MD [address] [place] [address] PCP - General 10/30/11 07/06/18 documented as of this encounter
--- OUTSIDE RECORDS SUMMARY | 2024-02-29 08:21 | XMS_ITS | Encounter Summary ---
[place] [address] Care Team Providers Care Slip Maker Name Role Phone Tristan Collins MD Primary Care Provider [phone] Reason for Visit * Reason Onset Date Comments Medication Refill 01/19/2012 post op pain m edication, Dilaudid 2 mg tabs, 2 tabs Q 4 hours. Encounter Details Date Type Department Care Team (Late st Contact Info) Description 01/19/2012 [place] [address] Parveen Salas, RN Social History Tobacco Use Types Packs/Day Years Used Date Smoking Tobacco: Never Smokeless Tobacco: Current Chew Sex and Gender Information Value Date Recorded Sex Assigned at Not on file Gender Identity Not on file Sexual Orientation Not on file documented as of this encounter Miscellaneous Notes * Telephone Encounter - Parveen Salas RN - 01/19/2012 4:28 PM EDT Received call from patient requesting refill of Dilaudid 2 mg tabs, he reports taking 2 tabs Q 4 hours. Patient is s/p 6/7/12 S/P L4-S1 PISF with L5-S1 TLIF from leftside. He reports that the majority of his his pain is in his left hip, he has increased pain with changes in position. He has made attempts to decrease to one tabs per dose during the day but has not been able to tolerate the decrease. He has a a supply on hand to cover while awaiting a refill mailed to his local pharmacy. Above discussed with Rhina Seth, COMPATIBILITY TEST ENGINEER, she authorized refill changing dose to 1-2 tabs Q 6 hoursas needed. Patient was contacted and informed of the above, discussed dose and frequency change and patient stated understanding. Prescription mailed as requested. documented in this encounter Plan of Treatment Not on file documented as of this encounter Visit Diagnoses Not on filedocumented in this encounter Care Teams Slip Maker Relationship Specialty Start Date End Date Tristan Collins MD [address] [place] [address] PCP - General 10/30/11 07/06/18 documented as of this encounter
--- OUTSIDE RECORDS SUMMARY | 2024-02-29 08:21 | XMS_ITS | Encounter Summary ---
Author Organization [facility] Address [address] [place] [address] Care Team Providers Care Continuous [employer] Supervisor Name Role Phone Tristan Collins MD Primary Care Provider Unav ailable Reason for Visit * Reason Comments Back Pain Encounter Details Date Type Department Care Team (Late st Contact Info) Description 06/27/2011 9:[address] [facility] Spine Program - [address] [place] [address] eDrek Veras PA-C [address] [place] [address] [place] [address] Low back pain (Primary Dx); Lumbar radiculopathy Social History Tobacco Use Types Packs/Day Years Used Date Smoking Tobacco: Never Assessed Smokeless Tobacco: Current Tobacco Cessation:Ready to Q uit: No; Counseling Given: Yes Alcohol Use Standard Drinks/Week Comments No 0 [...] - - Weight 104.3 kg (230 lb) 06/27/2011 0846 EST Height 167.6 cm (5' 6) 06/27/2011 0846 EST Body Mass Index 37.12 06/27/2011 0846 EST documented in this encounter Ordered Prescriptions Prescription Sig Dispensed Refills Start Date End Da te methylPREDNISolone (MEDROL DOSEPACK) 4 mg tablet follow package directions 1 Tab 0 06/27/2011 08/18/2011 documented in this encounter Progress Notes * Derek Veras PA - 06/27/2011 0914 EST Yasmani Glaser is being seen as a consultation from Dr. Collins. Chief Complaint Patient presents with ??? Back Pain The encounter diagnosis was Low back pain. HPI The patient presents with acute onset of low back pain upon awakening on 05/16, with acute backpain associated left lower extremity symptoms through the hip, anterior thigh, to the mid-thigh andgroin. Occasionally does have some right groin discomfort as well and he feels as though he has been kicked in his testicles. His discomfort is exacerbated by sitting, driving and walking. He finds some relief with lying down, reclining and standing. Denies tripping, stumbling, loss of control of his bladder and bowels. He has seen a physical therapist, has not seen a chiropractor, received injection therapy and states 50% of discomfort is focused in his back, 50% in his leg, with a discomfort r ating of moderate to severe. HPI There is no problem list on file for this patient. Past Medical History Diagnosis Date ??? HTN (hypertension) History reviewed. No pertinent past surgical history. History Substance Use Topics ??? Smoking status: Not on file ??? Smokeless tobacco: Current User ??? Alcohol Use: No History reviewed. No pertinent family history. Current Outpatient Prescriptions Medication Sig Dispense Refill ??? chlorthalidone (HYGROTON) 25 mg tablet Take 25 mg by mouth daily. ??? tramadol (ULTRAM) 50 mg tablet Take 50 mg by mouth every 8 hours as needed. ??? ibuprofen (MOTRIN) 800 mg tablet Take 800 mg by mouth every 8 hours as needed. ??? omeprazole (PRILOSEC) 20 mg capsule Take 20 mg by mouth daily. ??? Multivitamins with Minerals Tab Take 1 Tab by mouth daily. ??? Potassium Gluconate 550 mg Tab Take 1 Tab by mouth daily. Not on File Review of Systems Constitutional: Positive for activity change. HENT: Negative for neck pain. Eyes: Negative for visual disturbance. Respiratory: Negative for wheezing. Cardiovascular: Negative for palpitations. Gastrointestinal: Negative for constipation. Genitourinary: Negative for difficulty urinating. Musculoskeletal: Positive for back pain. Skin: Negative for color change. Neurological: Positive for numbness. Psychiatric/Behavioral: The patient is not nervous/anxious. Physical Exam Constitutional: He is oriented to person, place, and time. He appears well- developed and well-nourished. He appears distressed. Eyes: EOM are normal. Cardiovascular: Normal rate. Pulmonary/Chest: Effort normal. Neurological: He is alert and oriented to person, place, and time. Skin: Skin is warm and dry. Psychiatric: His behavior is normal. Back Exam Comments: Gait is antalgic favoring his left leg heel walking is normal No lesions rashes or hair shanice palp tenderness Decreased ROM Strength left hip flexor 4/5 soft touch intact Reflexes 2 DP2 babinski is down there is no clonus SLR right: Back pain Left: back pain Hips have FROM Neurologic Exam Mental Status Oriented to person, place, and time. Cranial Nerves CN III, IV, Extraocular motions are normal. The prior workup of the patient includes: Lumbar films today reveal a mild retrolisthesis of L4 on L5, and L3 on L4 in extension which corrects mildly in flexion Assessment Musculoskeletal discogenic back pain with a left L3/4 lumbar radiculopathy. We reviewed multiple options including expectant management, PT, medrol dose pack, injection therapy. Other Orders Placed This Visit Procedures ??? L SPINE 4 OR MORE VIEWS Plan: Medrol dose pack MRI Follow up post documented in this encounter Plan of Treatment Not on file documented as of this encounter Procedures Procedure Name Priority Date/Time Associated Diagnosis Comments MR LUMBAR SPINE WO CONTRAST 07/14/2011 17:09 EST L SPINE 4 OR MORE VIEWS Routine 06/27/2011 9:33 EST Low back pain documented in this encounter Results * MR LUMBAR SPINE WO CONTRAST (07/14/2011 17:09 EST) Anatomical Region Laterality Modality Other 07/14/2011 17:0 9 EST 07/15/2011 8:18 EST Narrative 07/15/2011 8:18 EST MRI of the lumbar spine July 14, 2011 at 1624. History: Back pain and left leg pain. Comparison: Plain films of June 27, 2011. Technique: Sagittal T2, sagittal T1, sagittal STIR, axial T2, axial T1, and coronal T2 images of the lumbar spine were acquired. Findings: The localizer view demonstrates mild reversal of the cervical lordosis and the presence of degenerative spondylosis of the mid and lower cervical spine without evidence of central canal stenosis or cord impingement. The retroperitoneal structures appear unremarkable there is a minimal dextroscoliosis of the lower lumbar spine. The conus terminates at the L1 level. Signal within the distal spinal cord is normal. The lumbar vertebral bodies are normally aligned. There is loss of disc space height and signal throughout the lumbar spine, worst at L4-L5 and L5-S1 suggesting disc degeneration. Marrow signal on the STIR sequence is normal. At L1-L2 there is mild disc bulge without focal herniation or central canal stenosis. No foraminal impingement is identified. At L2-L3 there is minimal disc bulge without focal herniation, central canal stenosis, or foraminal impingement. At L3-L4 there is mild disc bulge without focal herniation, central canal stenosis, or foraminal impingement. At L4-L5 there is a right paracentral disc herniation which indents the ventral thecal sac but does not result in central canal stenosis. Mild bilateral lateral recess narrowing is present from disc bulge. No foraminal impingement is identified. At L5-S1 there is disc bulge without focal herniation or central canal stenosis. The neural foramina are narrowed at this level from facet disease and disc bulge, mildly on the right and more moderately on the left with possible mass effect on the left L5 nerve root. Depression: Degenerative spondylosis of the lower lumbar spine as described, most notably at the L5-S1 level where disc bulge and facet disease result in possible mass effect in the left L5 nerve root within the neural foramen. A right paracentral disc herniation at L4-L5 is noted without central canal stenosis or foraminal compromise. Procedure Note 07/15/2011 MRI of the lumbar spine July 14, 2011 at 1624. History: Back pain and left leg pain. Comparison: Plain films of June 27, 2011. Technique: Sagittal T2, sagittal T1, sagittal STIR, axial T2, axial T1, and coronal T2 images of the lumbar spine were acquired. Findings: The localizer view demonstrates mild reversal of the cervical lordosis and the presence of degenerative spondylosis of the mid and lower cervical spine without evidence of central canal stenosis or cord impingement. The retroperitoneal structures appear unremarkable there is a minimal dextroscoliosis of the lower lumbar spine. The conus terminates at the L1 level. Signal within the distal spinal cord is normal. The lumbar vertebral bodies are normally aligned. There is loss of disc space height and signal throughout the lumbar spine, worst at L4-L5 and L5-S1 suggesting disc degeneration. Marrow signal on the STIR sequence is normal. At L1-L2 there is mild disc bulge without focal herniation or central canal stenosis. No foraminal impingement is identified. At L2-L3 there is minimal disc bulge without focal herniation, central canal stenosis, or foraminal impingement. At L3-L4 there is mild disc bulge without focal herniation, central canal stenosis, or foraminal impingement. At L4-L5 there is a right paracentral disc herniation which indents the ventral thecal sac but does not result in central canal stenosis. Mild bilateral lateral recess narrowing is present from disc bulge. No foraminal impingement is identified. At L5-S1 there is disc bulge without focal herniation or central canal stenosis. The neural foramina are narrowed at this level from facet disease and disc bulge, mildly on the right and more moderately on the left with possible mass effect on the left L5 nerve root. Depression: Degenerative spondylosis of the lower lumbar spine as described, most notably at the L5-S1 level where disc bulge and facet disease result in possible mass effect in the left L5 nerve root within the neural foramen. A right paracentral disc herniation at L4-L5 is noted without central canal stenosis or foraminal compromise. Derek Veras PA-C [facility] MRI ORDERABLES * L SPINE 4 OR MORE VIEWS (06/27/2011 9:33 EST) Anatomical Region Laterality Modality Other 06/27/2011 9:33 EST 06/27/2011 15:52 EST Narrative 06/27/2011 15:52 EST L SPINE 4 OR MORE VIEWS ??Jun 27, 2011 09:33:00 AM Signs and Symptoms/Comments: ??724.9-[id number]-CM low back pain ?? Pt weight 200+ ?? CEB 06-27-11 9:30 a.m. Comparison: None. Findings: AP and lateral upright radiographs and lateral flexion and extension radiographs of the lumbar spine were obtained. There are 5 [id number] lumbar-type vertebral bodies. Mild curvature is present at the thoracolumbar junction. The sacroiliac joints appear patent. The hip joint space is preserved. There is mild anterior wedging of the T12 and T11 vertebrae on the lateral view. Posterior disc space narrowing is present at L1-L2. Vertebral body height and alignment in the lumbar spine is within normal limits. Anterior osteophyte formation is present at T11-T12. No instability is identified between flexion and extension views. Mild anterior spondylotic ridging is seen in the lumbar spine. Impression: Mild degenerative changes, most severe at T11-T12. Procedure Note 06/27/2011 L SPINE 4 OR MORE VIEWS Jun 27, 2011 09:33:00 AM Signs and Symptoms/Comments: 724.1-[id number]-9-CM low back pain Pt weight 200+ CEB 06-27-11 9:30 a.m. Comparison: None. Findings: AP and lateral upright radiographs and lateral flexion and extension radiographs of the lumbar spine were obtained. There are 5 [id number] lumbar-type vertebral bodies. Mild curvature is present at the thoracolumbar junction. The sacroiliac joints appear patent. The hip joint space is preserved. There is mild anterior wedging of the T12 and T11 vertebrae on the lateral view. Posterior disc space narrowing is present at L1-L2. Vertebral body height and alignment in the lumbar spine is within normal limits. Anterior osteophyte formation is present at T11-T12. No instability is identified between flexion and extension views. Mild anterior spondylotic ridging is seen in the lumbar spine. Impression: Mild degenerative changes, most severe at T11-T12. Derek [facility] NG ORDERABLES documented in this encounter Visit Diagnoses Diagnosis Low back pain- Primary Lumbago Lumbar radiculopathy Thoracic or lumbosacral neuritis or radiculitis, unspecified documented in this encounter Historical Medications * This list may reflect changes made after this encounter. Medication Sig Dispensed Refills Start Date End Date Potassium Gluconate 550 mg Tab Take 1 Tab by mouth daily. 04/05/2015 Multivitamins with Minerals Tab Take 1 Tab by mouth daily. 04/05/2015 omeprazole (PRILOSEC) 20 mg capsule Take 20 mg by mouth daily. 04/05/2015 ibuprofen (MOTRIN) 800 mg tablet Take 800 mg by mouth every 8 hours as needed. 04/05/2015 tramadol (ULTRAM) 50 mg tablet Take 50 mg by mouth every 8 hours as needed. 08/18/2011 chlorthalidone (HYGROTON) 25 mg tablet Take 25 mg by mouth daily. 11/04/2021 added in this encounter Care Teams Continuous [employer] Supervisor Relationship Specialty Start Date End Date Tristan Collins MD PCP - General 06/26/11 05/12/23 documented as of this encounter
--- OUTSIDE RECORDS SUMMARY | 2024-02-29 08:22 | XMS_ITS | Encounter Summary ---
[place] [address] Care Team Providers Care Belt Maker Name Role Phone Tristan Collins MD Primary Care Provider [phone] Reason for Visit * Reason Onset Date Comments Pre Procedure Call 12/18/2011 Encounter Details Date Type Department Care Team (Late st Contact Info) Description 12/18/2011 Telephone [place] [id number] Marisabel Mc RN Pre Procedure Call Social History Tobacco Use Types Packs/Day Years Used Date Smoking Tobacco: Never Sex and Gender Information Value Date Recorded Sex Assigned at Not on file Gender Identity Not on file Sexual Orientation Not on file documented as of this encounter Miscellaneous Notes * Telephone Encounter - Marisabel Mc RN - 12/18/2011 1:57 PM EDT Call placed to patient; advised pt of need to hold anticoagulants, NSAIDs, ASA products, and FishOil for 7-10 days preoperatively. Reviewed medication list. Patient is not noted to be on any anticoagulants, asa, or fish oil. Patient agreed to hold Ibuprophen as instructed. Medication list updated; including the addition oftwo meds recently prescribed via ED. documented in this encounter Plan of Treatment Not on file documented as of this encounter Visit Diagnoses Not on filedocumented in this encounter Care Teams Belt Maker Relationship Specialty Start Date End Date Tristan Collins MD [address] [place] [address] PCP - General 10/30/11 07/06/18 documented as of this encounter
--- OUTSIDE RECORDS SUMMARY | 2024-02-29 08:22 | XMS_ITS | Encounter Summary ---
Author Organization [facility] [place] [address] Care Team Providers Care Body Stylist Name Role Phone Tristan Collins MD Primary Care Provider [phone] Encounter Details Date Type Department Care Team (Late st Contact Info) Description 10/30/2011 10:00 AM EDT Follow-[place] [address] Savannah He, [facility] [place] [address] Social History Tobacco Use Types Packs/Day Years Used Date Smoking Tobacco: Never Sex and Gender Information Value Date Recorded Sex Assigned at Not on file Gender Identity Not on file Sexual Orientation Not on file documented as of this encounter Plan of Treatment Not on file documented as of this encounter Visit Diagnoses Not on filedocumented in this encounter Care Teams Body Stylist Relationship Specialty Start Date End Date Tristan Collins MD [address] [place] [address] PCP - General 10/30/11 07/06/18 documented as of this encounter
--- OUTSIDE RECORDS SUMMARY | 2024-02-29 08:22 | XMS_ITS | Encounter Summary ---
Author Organization [facility] [place] [address] Care Team Providers Care Ceramic Painter Name Role Phone Tristan Collins MD Primary Care Provider [phone] Encounter Details Date Type Department Care Team (Latest Contact Info) Description 01/01/2012 5:53 AM EDT - 01/04/2012 3:07 PM EDT Hospital Encounter [address] [place] [address] Rodolfo Howard MD [facility] [place] [address] Sciatica of left side; Sciatica; L4-S1 PIF with L5-S1 L TLIF Discharge [...] Sign Reading Time Taken Comments Blood Pressure 115/69 01/04/2012 5:40 AM EDT Pulse 78 01/04/2012 5:40 AM EDT Temperature 36.6 ??C (97.9 ??F) 01/04/2012 5:40 AM ED T Respiratory Rate 20 01/04/2012 5:40 AM EDT Oxygen Saturation 98% 01/04/2012 5:40 AM EDT Inhaled Oxygen Concentration - - Weight 108.9 kg (240 lb) 01/01/2012 6:55 PM EDT Height 167.6 cm (5' 6) 01/01/2012 6:55 PM EDT Body Mass Index 38.74 01/01/2012 6:55 PM EDT documented in this encounter Discharge Instructions * Patient Instructions* Ganesh Rose MD - 01/04/2012 11:49 AM EDT Activity: Routine daily activities as tolerated, but no bending, or twisting and do not lift anything greater than 5 pounds. [If a brace/orthomold was ordered wear it when you are mobilizing for comfort. Remember to inspect your skin daily for any areas of redness when the brace/orthomold is removed.] Diet: As usual but increase your intake of fluids and fiber while you are on narcotic pain meds to prevent constipation Driving: NO driving while you are on narcotic pain medications OR if you are in pain. These medications and pain can affect your judgement and reaction time - contact the [facility] ([phone]) with any questions or clinic issues. Medications: 1. You can continue to take Dilaudid for breakthrough pain, but your need for this medication will also decrease over time. 2. Narcotic pain medications can be very constipating so take the stool softener that was ordered to facilitate a bowel movement. You can also take an yvkx-vsb-xclzmzs medication (miralax) to help ifneeded. 3. When you need a renewal for your narcotics, you need to give [facility] enough time to process your request. This can take up to 3 days so plan accordingly. Call the [facility] prescription line at [phone] for assistance. 4. Some narcotic prescriptions CAN NOT be called into a pharmacy and require that the prescription be picked up here at [facility] or mailed to the pharmacy. 5. Do Not take any NSAIDs, including ibuprofen, motrin, advil, or aspirin. 6. Continue to take the tylenol around the clock for the next 10 days. It can be effective in combination with your other medications. Shower/bath: 1. For the 1st 7 days after surgery, before showering cover the incision with a dry clean gauze andthen a tegaderm (or other waterproof dressing). 2. After the shower, remove the tegaderm and replace with a dry dressing lightly taped over the incision. 3. The tegaderm is used when showering ONLY. DO NOT leave it on the dressing/incision for extended periods of time. 4. After 10 days, you can shower without a dressing. 5. DO NOT soak the incision for 3 weeks. Wound care: 1. Change the initial dressing after day 3 and then DAILY for 1 week. 2. After 7-10 days, the dressing can be removed and the incision can be left uncovered. You would only need to continue dressing changes if there was drainage, pain or inflammation around the incision. 3. You do not have any maricel/sutures in place. You have little strips of tape across your incision. DO NOT remove these. These will fall off on their own. If they do not fall off in 14 days (approximately 6-21) you may gently remove them. Call your doctor if: You have a fever > 101.5 Discharge from the incision Any redness or swelling around the incision Increased pain Numbness or tingling in your hands or feet Incontinence of bowel or bladder. If you have any questions call: Clinical or Nurse issues: [phone] Medication renewal: [phone] Howard: [phone] Misc: You may have an x-ray prior to your followup appointment. Report to Radiology desk 3T 1 hour prior to that appointment for those studies. documented in this encounter Medications at Time of Discharge Medication Sig Dispensed Refills Start Date End Date citalopram (CELEXA) 20 mg tablet Take 20 mg by mouth daily. chlorthalidone (HYGROTEN) 50 mg tablet Take 25 mg by mouth daily. HYDROmorphone (DILAUDID) 2 mg tablet Take 2-4 tablets by mouth every 4 hours as needed for Pain. 100 tablet 0 01/04/2012 01/09/2012 documented as of this encounter Progress Notes * Shauna Schultz RN - 01/04/2012 2:34 PM EDT IV removed, site benign. My assessment remains unchanged from my previous assessment. Discussed pain management with patient, pain tolerable. Pt medicated prior to discharge. Pt has all belongings and supplies needed. Patient received discharge summary and prescriptions. These were reviewed, patient verbalizes understanding of AVS. All questions answered. Pt encouraged to call with questions or concerns. Pt discharged to home with family. * Bryan Velasco OT - 01/04/2012 12:32 PM EDT Occupational Therapy Treatment Note Visit #: 2 Patient Profile: Patient is a 41 [address] of Dr. Howard , admitted on 01/01/2012 with L5-L6 disc disruption and left sciatica causing pain and dysfunction. He has fallen in the past due to sudden left leg weakness. He underwent L4-5-S1 Posterior fusion with instrumentation and L5-S1 TLIF from the left side with 7mm PEEK cage, and ICBG from the left iliac crest. Precautions: no twisting, bending, lifting; full code S: I am feeling good. O: Patient seen for 15 mins for ADLs to address goals. Pt demonstrated the following ?? Patient able to mobilize independently into bathroom with walker. Patient able to step into shower CTGA with walker and understands need for CTGA with transfer. Discussed use of commode chair thathe may have available through a relative. Discussed recommended shower chair for home. Patient feltthe transfer tub bench will be too big for his bathroom. ?? Patient reports he is comfortable using teacher physically impaired to string on pants and underwear. Patient able to use sock aid independently. ?? Patient's present and understands instruction. ?? Patient agrees to have a phone with him, place things at waist level and creat a walker bag as needed Pain: Minimal. Education: Pt/family education ongoing. Staff Communication: Patient status, treatment, and mobility recommendations discussed with nursing/other staff. A: Patient did well with mobility and ADLs. Patient has good support at home. Goals met. P: D/C Total time spent with patient: 15 minutes ADL training Total timed interventions: 15 minutes Pager: [phone] BRYAN VELASCO OT Occupational Therapy Rehabilitation Department * Анна Wilson - 01/04/2012 9:35 AM EDT Office of Care Management/Train Station [employer] Patient Name: Yasmani Glaser : 1970 Referral received from [facility] Shelby Reyna requesting DME supply delivery. Vendor: [employer] Ordered: Front Wheeled Walker Equipment to be delivered to patient's room today prior to patient's discharge. Referral has been placed via e-discharge. АННА WILSON, Train Station Server * Vanita Mckee, PT - 01/04/2012 9:17 AM EDT Physical Therapy Treatment Note Visit # 3 Patient Dx: L4-S1 PISF with L5-S1 TLIF from leftside with ICBG Precautions: no bending, twisting or lifting. Interval History: drain pulled this morning by . S: I need a walker to go home with. The cane doesn't give me enough stability to walk with. O: Pt demonstrated the following ?? Sit<>stand independently with walker. ?? Amb. 150 ft using walker independently. Gait is slow, but steady. ?? He understands precautions. ?? Stairs: Up and down 2 steps independently going up sideways with both hands on rail. He was ableto do this independently. His was present and understands that she will have to bring the walker up and down the steps for pt. He is not going to go upstairs upon initial d/c to home. He plans to stay down stairs for a while, so only needs to do 2 steps to get into the home. Pain: tolerable Sensation: Reports numb feeling at both anterior thighs, otherwise denies legs symptoms Education: Reviewed home plan. Staff Communication: Patient status, treatment, and mobility recommendations discussed with nursing/other staff. A: All PT goals met. Pt is safe from a PT standpoint for d/c to home with his . He is agreeable. Physical Therapy Goals: 1. Ind sit to stand met 2. Ind with log roll in and out of bed. met 3. ind ambulation at least 100' with fww met 4. Up and down 1 flight of stairs with cg and rail. Did 2 steps independently. Doesn't have to do the whole flight. P: Cont per physical therapy plan of care. Thursday session for stairs only and should achieve PT goals. Total time spent with patient: 15 minutes Total timed interventions: 15 minutes (functional activity) Pager: [phone] Vanita Mckee, PT Physical Therapy Rehabilitation Department * Umesh Knight - 01/04/2012 5:23 AM EDT ORTHOPAEDIC PROGRESS NOTE SURGERY/ISSUE: S/P L4-S1 PISF with L5-S1 TLIF from leftside Interval History: Went to the PT gym, did well. Pain controlled on oral pain meds. Temp: [36.6 ??C (97.9 ??F)-37.4 ??C (99.3 ??F)] Heart Rate: [70-84] Resp: [16-18] BP: (98-107)/(45-64) SpO2: [90 %-98 %] I/O last 3 completed shifts: In: 4492 [P.O.:4170; I.V.:322] Out: 4890 [Urine:4550; Other:340] Drain output: cc in last 4.5 hrs PE: NAD Dressing changed wound C/D/I Drain to suction--left in place Motor:Motor: Segment Muscle Action R L L2 Iliopsoas Hip flexion 5 5 L3 Quadriceps Knee extension 5 5 L4 Tibialis anterior Dorsiflexion 5 5 L5 Extensor hallucis Great toe extension 5 5 S1 Gastrocnemius, FHL Plantar flexion 5 5 Sensory: Sensation (light touch) (0=absent, 1-impaired, 2=normal: Segment location Right Left L2 mid-ant thigh 0 0 L3 med femoral condyle 2 2 L4 medial mal 2 2 L5 dorsum foot, 3rd MT 2 2 S1 lat heel 1 1 XRAYS: hardware in good position Stable post op Active Issues: mobilize and try to optimize pain control Pain Control: dilaudid to 4-8 q4 hrs Activity: WBAT with no heavy lifting of extreme twisting or bending Antibiotics: 24 hours Antiicoagulation: None Drains: Continue until less than 30-50 cc/shift. Dressing/Spints: Change daily Dispo: home likely when clears PT and pain is under control Follow up: 4 week with x-rays of lumbar spine with Dr. Howard * Ho Miles - 01/03/2012 3:50 PM EDT Mortgage Processor Encounter Note Patient Name: Yasmani Glaser : [id number] MR#: [id number] Admit Date: 01/01/2012 5:53 AM Hospital Day 2 days Narrative:Patient not available for visit Assessment: Intervention and Outcome: Follow-up: Time in Direct Care: Miles Teague 01/03/2012 * Umesh Dick - 01/03/2012 2:43 PM EDT Physical Therapy Treatment Note Visit # 2 Patient Dx: L4-S1 PISF with L5-S1 TLIF from leftside Precautions: no bending, twisting or lifting. Still has lumbar drain in place. Interval History: uneventful S: I feel so much better today This was all more involved than I had expected I'm feeling a lot more motivated and optimistic today O: Pt demonstrated the following ?? Supine<>sit, using log roll technique, with cues and close supervision, bed flat. ?? Sit<>stand with supervision, could do so indep at this time. ?? Amb. 150 ft using walker, with close supervision. Could do so with normal supervision at this time. Moves slowly, guarded, but steady and no loss of balance ?? Discussed precautions and explained them to him in detail ?? Still has lumbar drain, needed a piece of tape to reinforce dressing that was coming loose over drain. ?? Stairs: Negotiated four steps, using hands on rails, with close supervision. Feel he should practice this with PT one more time to clear for home. Pain: tolerable Sensation: Reports numb feeling at both anterior thighs, otherwise denies legs symptoms Education: Education topics included precautions, bed mobility, stairs. Pt verbalized/demonstrated understanding. Staff Communication: Patient status, treatment, and mobility recommendations discussed with nursing/other staff. A: Pt tolerated PT well. Presents with decreased functional mobility and gait status. Pt will benefit from ongoing therapeutic interventions to achieve pt's and therapy goals. Not achieved PT goals today. Anticipate one quick session tomorrow morning and he should be set. Physical Therapy Goals: 1. Ind sit to stand 2. Ind with log roll in and out of bed. 3. ind ambulation at least 100' with fww 4. Up and down 1 flight of stairs with cg and rail. P: Cont per physical therapy plan of care. Thursday session for stairs only and should achieve PT goals. Total time spent with patient: 15 minutes Total timed interventions: 15 minutes (functional activity) Pager: [phone] Umesh Dick, PT Physical Therapy Rehabilitation Department * Concetta Samano, OT - 01/03/2012 12:58 PM EDT Occupational Therapy Treatment Note Visit #: 2 Patient Profile: Patient is a 41 y[address] of Dr. Howard , admitted on 01/01/2012 with L5-L6 disc disruption and left sciatica causing pain and dysfunction. He has fallen in the past due to sudden left leg weakness. He underwent L4-5-S1 Posterior fusion with instrumentation and L5-S1 TLIF from the left side with 7mm PEEK cage, and ICBG from the left iliac crest. Precautions: no twisting, bending, lifting; full code; Still with drain in place, pain issues. Interval History: increased pain overnight S: I like the sock aid, but I'll work on reaching my feet without it too. O: Patient seen for 50 minutes for functional therapeutic activity to address goals. Pt demonstrated the following ?? We thoroughly reviewed precautions and he verbalized understanding and then demo'd during ADL training but needs reinforcement, present and instructed as well ?? He demonstrated ability to move sit>stand from chair, good body mechanics ?? Demonstrated ability to move to height of his toilet at home by getting his feet under him and not bending forward ?? I provided information to him and his on type of tub seats that are out there, she wishes to defer the selection until home therapist arrives and can look at bathroom. ?? We reviewed options for DME for toilet if there were problems getting up from toilet at home ?? Patient requested to sit on upright chair ?? He was provided and instructed in the use of sock aid, teacher physically impaired, long handled bathsponge. ?? Patient donned pants, socks with supervision, good body mechanics. Pain: 5/10 at rest, increasing to 7/10 after moving RN aware Education: Patient education included bathroom DME, precautions, assistive devices Staff Communication: Patient status, treatment, and mobility recommendations discussed with nursing, other staff. A: Patient is doing well, limited by pain still has drain in, patient is receptive to recommendations, assistive devices. He has a supportive and anticipates going home but will need better paincontrol. Pt will benefit from ongoing therapeutic interventions at home to achieve patient's and therapy goals. Goals: To be achieved by 01/02-01/03 . Making progress 1. Patient will demonstrate knowledge of precautions and weight bearing limitations independently during functional mobility and ADL's. 2. Patient will perform sink level ADL???s independently Using FWW . 3. Patient will perform lower body dressing independently using good mechanics and adaptive equipment as needed. 4. Patient to perform sit-stand transfers independently utilizing least restrictive device. 5. Patient will ambulate independently to /from the bathroom with FWW . 6. Patient will be able to navigate around the kitchen with FWW independently and obtain items by squatting vs. Bending. P: Continue per plan of care as outlined on 01/02/12. Total time spent with patient: 50 minutes Total timed interventions: 50 minutes functional therapeutic activity Pager: [phone] CONCETTA SAMANO OT Occupational Therapy Rehabilitation Department * Salomon Dykes MD - 01/03/2012 6:42 AM EDT ORTHOPAEDIC PROGRESS NOTE SURGERY/ISSUE: S/P L4-S1 PISF with L5-S1 TLIF from leftside Interval History: pain was controled yesterday, but has had increased pain overnight and is very sore this am. Denies CP/SOB/N/V. Continues to have anterior & lateral thigh numbness since surgery. Otherwise no new numbness or weakness. Temp: [36.7 ??C (98.1 ??F)-37.4 ??C (99.3 ??F)] Heart Rate: [63-70] Resp: [14-18] BP: (98-113)/(50-61) SpO2: [96 %-99 %] I/O last 3 completed shifts: In: 8695 [P.O.:2545; I.V.:6150] Out: 6560 [Urine:5255; Other:505; Blood:800] I/O this shift: In: 720 [P.O.:720] Out: 2815 [Urine:2750; Other:65] Drain output: 75cc in last 4.5 hrs PE: NAD Dressing changed wound C/D/I Drain to suction--left in place Motor:Motor: Segment Muscle Action R L L2 Iliopsoas Hip flexion 5 5 L3 Quadriceps Knee extension 5 5 L4 Tibialis anterior Dorsiflexion 5 5 L5 Extensor hallucis Great toe extension 5 5 S1 Gastrocnemius, FHL Plantar flexion 5 5 Sensory: Sensation (light touch) (0=absent, 1-impaired, 2=normal: Segment location Right Left L2 mid-ant thigh 0 0 L3 med femoral condyle 2 2 L4 medial mal 2 2 L5 dorsum foot, 3rd MT 2 2 S1 lat heel 1 1 Lab Results Component Value Date WBC 12.7* 01/02/2012 RBC 4.10* 01/02/2012 HGB 11.1* 01/02/2012 HCT 33.7* 01/02/2012 PLATELET 299 01/02/2012 NA 141 01/02/2012 K 3.5 01/02/2012 CO2 32* 01/02/2012 BUN 9* 01/02/2012 CREATININE 0.67* 01/02/2012 INR 1.0 12/01/2011 XRAYS: hardware in good position Stable post op Active Issues: mobilize and try to optimize pain control Pain Control: increase dilaudid to 4-8 q4 hrs Activity: WBAT with no heavy lifting of extreme twisting or bending Antibiotics: 24 hours Antiicoagulation: None Drains: Continue till less than 30-50 cc/shift. Dressing/Spints: Change daily Schwartz: is out Dispo: home likely when clears PT and pain is under control Follow up: 4 week with x-rays of lumbar spine with Dr. Howard * Christie Stoddard RN - 01/02/2012 4:24 PM EDT Faxed clinical update to rehabilitation case coordinator Ana Urbina [phone]. * Shauna Schultz RN - 01/02/2012 4:23 PM EDT Patient called to notify RN about right thigh numbness/redness and warmth. Patient states that he feels pressure. Thighs were measured and measured equal bilaterally. + 2 bilateral pedal pulses. I encouraged patient to ring if this worsened. CONVEYOR MAINTENANCE MECHANIC is aware. Will continue to monitor. * Ruy Lopez MD - 01/02/2012 5:22 AM EDT ORTHOPAEDIC PROGRESS NOTE SURGERY/ISSUE: S/P L4-S1 PISF with L5-S1 TLIF from leftside Interval History: No major issues since OR, SBP has been in the 80s but making good UOP per RNing staff , pain control difficult with COLD SAW OPERATOR and orals, Denies CP/SOB/N/V. Temp: [36.6 ??C (97.9 ??F)-37.1 ??C (98.8 ??F)] Heart Rate: [65-98] Resp: [15-18] BP: (80-115)/(38-68) SpO2: [92 %-100 %] I/O last 3 completed shifts: In: 5468 [P.O.:655; I.V.:4813] Out: 1660 [Urine:655; Other:205; Blood:800] I/O this shift: In: 1015 [I.V.:1015] Out: 3575 [Urine:3400; Other:175] PE: NAD Dressing C/D/I Drain to suction Motor:Motor: Segment Muscle Action R L L2 Iliopsoas Hip flexion 5 5 L3 Quadriceps Knee extension 5 5 L4 Tibialis anterior Dorsiflexion 5 5 L5 Extensor hallucis Great toe extension 5 5 S1 Gastrocnemius, FHL Plantar flexion 5 5 Sensory: Sensation (light touch) (0=absent, 1-impaired, 2=normal: Segment location Right Left L2 mid-ant thigh 2 2 L3 med femoral condyle 2 2 L4 medial mal 2 2 L5 dorsum foot, 3rd MT 2 2 S1 lat heel 2 2 Lab Results Component Value Date WBC 12.7* 01/02/2012 RBC 4.10* 01/02/2012 HGB 11.1* 01/02/2012 HCT 33.7* 01/02/2012 PLATELET 299 01/02/2012 NA 141 01/02/2012 K 3.5 01/02/2012 CO2 32* 01/02/2012 BUN 9* 01/02/2012 CREATININE 0.67* 01/02/2012 INR 1.0 12/01/2011 XRAYS: hardware in good position Stable post op Active Issues: mobilize and try to optimize pain control today Pain Control: transition to oral pain medications today Activity: WBAT with no heavy lifting of extreme twisting or bending Antibiotics: 24 hours Antiicoagulation: None Drains: Continue till less than 30-50 cc/shift. Dressing/Spints: Change POD#2 Schwartz: D/C this AM Dispo: home likely over weekend Follow up: 4 week with x-rays of lumbar spine with Dr. Howard * Jessica Duarte RN - 01/01/2012 5:00 PM EDT Patient arrived to floor via bed. Patient A&O x 3, lungs clear, heart rate regular. Patient hashypoactive bowel sounds. Patient has a dressing to midline lower back with a davol drain which is draining a moderate amount of bloody drainage., dressing noted to be clean dry and intact. Patient has an IV of LR infusing at 100cc/hr in to their right hand. Patient states their pain level is 7/10. Patient denies chest pain, shortness of breath or chest pain, numbness or tingeling. Patient oriented to room, call hernandez, IS. RN will monitor patient. Family with patient. JESSICA DUARTE RN * Chon Coronadoan T - 01/01/2012 3:19 PM EDT Surgery Post-Op Check ID: Yasmani Glaser is a 41 y.o. male s/p L4-S1 Posterior instrumented fusion, L5-Si TLIF, iliac bone graft Patient seen and examined in PACU/PACU. Patient states he is having some moderate pain. He has a new sensation of pain with some numbness over his R anterior thigh that does not radiate below the knee. Per nurse, patient has been hypotensive to SBPs in 90s. Patient denies dizziness, [place] nor any other complaints. Chest Pain: denies SOB: denies Nausea: denies Pain: 7/10 Other: no other complaints Last value Range last 8 hrs Temperature Temp: 37.1 ??C (98.8 ??F) Heart Rate Heart Rate: 81 Heart Rate: [81-93] Blood Pressure BP: 94/46 mmHg BP: (80-106)/(38-59) Respiratory Rate Resp: 16 Resp: [15-16] SpO2 SpO2: 97 % SpO2: [96 %-99 %] I/O this shift: In: 4240 [I.V.:4240] Out: 1285 [Urine:485; Blood:800] Gen: NAD Cor: normal rate and rhythm Pulm: non-labored, CTABL Gu: schwartz in place draining clear yellow urine Exts: Able to flex hips, flex/extend knees, flex/extend ankles, extend great toes. SITLT L2-S1 dermatomes. Feet WWP. Post-Op Films: PIF with rods and pedicle screws in place L4-S1 Assessment/Plan: Patient is recovering well following L4-S1 Posterior instrumented fusion, L5-Si TLIF, iliac bone graft. Hemodynamically stable, UOP adequate, pain well controlled R anterior thigh pain c/w meralgia 2/2 positioning, will continue to follow - patient checked againat 1999, pain R ant thigh pain has resolved, still some lingering paresthesias Orders reviewed - Plan to continue with post-op plan as ordered. Perioperative antibiotics given documented in this encounter H&P Notes * Asael Jimenez - 01/01/2012 7:09 AM EDT No change in health since he saw his PCP. Still having LLE leg symptoms. Will proceed with surgery. * Asael Jimenez - 01/01/2012 7:09 AM EDT Please see scanned H&P documented in this encounter Miscellaneous Notes * Miscellaneous - Provider, Scanning - 01/05/2012 9:13 AM EDT * Discharge Summary - Ganesh Rose MD - 01/04/2012 12:26 PM EDT Department of Orthopaedic Medicine - Discharge Summary Patient Name: Yasmani Glaser Patient Age: 41 y.o. Birthdate: 1970 Admit date: 01/01/2012 Discharge date and time: 01/04/2012 Attending Physician: Rodolfo Howard MD Discharge Diagnoses (Hospital Problems) and Secondary Diagnoses (Chronic Problems): Active Hospital Problems Diagnoses ??? L4-S1 PIF with L5-S1 L TLIF Resolved Hospital Problems Diagnoses Date Resolved Active Non-Hospital Problems Diagnoses ??? Hypertension ??? Chewing tobacco use ??? Obesity, Class II, BMI 35-39.9 ??? Alcohol abuse Operations: Case Date: 01/01/2012 Surgeon: Surgeon(s) and Role: * RODOLFO HOWARD MD - Primary * ASAEL JIMENEZ MD - Resident-Surgeon Victor M Procedure: L4-S1 PISF with L5-S1 TLIF from left side with ICBG History of Presentation: This is a 41 y.o.-year-old male with left lower extremity sciatica symptoms with foraminal stenosis confirmed by imaging studies that has failed non-operative management. After a discussion regarding the risks and benefits of instrumented fusion they wished to pursue operative treatment. Hospital Course: Yasmani Glaser was admitted for the above diagnosis and surgical intervention. There were no intraoperative complications. Patient began rehab on POD#1 with WBAT and no bending/twisting/heavy lifting remembering to use a walker or crutches as needed for balance and protection. The COLD SAW OPERATOR was discont inued on POD#1 and the patient was started on oral pain medications and was comfortable. Drains were removed POD# 2 . Schwartz was removed POD# 1 and patient was voiding spontaneously. Wound inspected POD# 2 and found to be benign. Patient did not have a bowel movement before discharge but was passingflatus and taking PO without difficulty. By POD# 3 the patient was medically stable and was clearedfor safe discharge by PT to home . Important Studies and Lab Data: Labs: Lab Results Component Value Date WBC 12.7* 01/02/2012 HGB 11.1* 01/02/2012 HCT 33.7* 01/02/2012 MCV 82.2 01/02/2012 Discharge Conditions/Prognosis: Stable, awake, and alert. Mobilizing with walker/crutches, pain controlled on oral medications. Patient Vitals in the past 8 hrs: BP Temp Pulse Resp SpO2 01/04/12 0540 115/69 mmHg 36.6 ??C (97.9 ??F) 78 20 98 % Discharge to: Home Discharge Medications: Current Discharge Medication List New Meds Dose Details acetaminophen (TYLENOL) 500 mg tablet 1,000 mg Take 2 tablets by mouth every 8 hours. Qty: Refills: HYDROmorphone (DILAUDID) 2 mg tablet 4-8 mg Take 2-4 tablets by mouth every 4 hours as needed for Pain. Qty: 100 tablet Refills: 0 senna-docusate (PERICOLACE) 8.6-50 mg per tablet 1-4 tablets Take 1-4 tablets by mouth 2 times daily. Qty: 60 tablet Refills: 1 Continued medications, unchanged Dose Details citalopram (CELEXA) 20 mg tablet 20 mg Take 20 mg by mouth daily. Qty: Refills: chlorthalidone (HYGROTEN) 50 mg tablet 25 mg Take 25 mg by mouth daily. Qty: Refills: omeprazole (PRILOSEC) 20 mg capsule 20 mg Take 20 mg by mouth daily. Qty: Refills: multivitamin (THERAGRAN) tablet 1 tablet Take 1 tablet by mouth daily. Qty: Refills: Potassium Gluconate 550 mg Tab Take by mouth. Qty: Refills: traZODone (DESYREL) 100 mg tablet 100 mg Take 100 mg by mouth nightly. Qty: Refills: Medications STOPPED Dose triamcinolone (KENALOG) 0.1 % cream 0.1 % traMADol (ULTRAM) 50 mg tablet 50 mg ibuprofen (ADVIL;MOTRIN) 800 mg tablet 800 mg Updated Allergies/ADRs: No Known Allergies Instructions Given to Patient at Discharge: Provider Instructions Activity: Routine daily activities as tolerated, but no bending, or twisting and do not lift anything greater than 5 pounds. [If a brace/orthomold was ordered wear it when you are mobilizing for comfort. Remember to inspect your skin daily for any areas of redness when the brace/orthomold is removed.] Diet: As usual but increase your intake of fluids and fiber while you are on narcotic pain meds to prevent constipation Driving: NO driving while you are on narcotic pain medications OR if you are in pain. These medications and pain can affect your judgement and reaction time - contact the [facility] ([phone]) with any questions or clinic issues. Medications: 1. You can continue to take Dilaudid for breakthrough pain, but your need for this medication will also decrease over time. 2. Narcotic pain medications can be very constipating so take the stool softener that was ordered to facilitate a bowel movement. You can also take an sxlv-gcb-joewxej medication (miralax) to help ifneeded. 3. When you need a renewal for your narcotics, you need to give [facility] enough time to process your request. This can take up to 3 days so plan accordingly. Call the [facility] prescription line at [phone] for assistance. 4. Some narcotic prescriptions CAN NOT be called into a pharmacy and require that the prescription be picked up here at [facility] or mailed to the pharmacy. 5. Do Not take any NSAIDs, including ibuprofen, motrin, advil, or aspirin. 6. Continue to take the tylenol around the clock for the next 10 days. It can be effective in combination with your other medications. Shower/bath: 1. For the 1st 7 days after surgery, before showering cover the incision with a dry clean gauze andthen a tegaderm (or other waterproof dressing). 2. After the shower, remove the tegaderm and replace with a dry dressing lightly taped over the incision. 3. The tegaderm is used when showering ONLY. DO NOT leave it on the dressing/incision for extended periods of time. 4. After 10 days, you can shower without a dressing. 5. DO NOT soak the incision for 3 weeks. Wound care: 1. Change the initial dressing after day 3 and then DAILY for 1 week. 2. After 7-10 days, the dressing can be removed and the incision can be left uncovered. You would only need to continue dressing changes if there was drainage, pain or inflammation around the incision. 3. You do not have any maricel/sutures in place. You have little strips of tape across your incision. DO NOT remove these. These will fall off on their own. If they do not fall off in 14 days (approximately 6-21) you may gently remove them. Call your doctor if: 1. You have a fever > 101.5 2. Discharge from the incision 3. Any redness or swelling around the incision 4. Increased pain 5. Numbness or tingling in your hands or feet 6. Incontinence of bowel or bladder. If you have any questions call: 7. Clinical or Nurse issues: [phone] 8. Medication renewal: [phone] Howard: [phone] [facility]: You may have an x-ray prior to your followup appointment. Report to Radiology desk 3T 1 hour prior to that appointment for those studies. General Instructions None Future Appointments and Orders Future Orders Please Complete By Expires Walker standard [EQ135 Custom] Process Instructions: Scheduling Instructions: Comments: Questions: Responses: Vendor Name/Contact information: Lyubov Whitaker Comment - wt-108.9 kg, ht-65 Provider Contact Information: Primary Care Provider: TRISTAN COLLINS MD [phone] Hospital Attending: Rodolfo Howard MD Department of Orthopaedic Surgery Spine: [phone] Discharge References/Attachments: Discharge References/Attachments None For questions regarding this document or issues relating to this hospitalization on the Medical Service, please contact your inpatient physician through the [facility] [employer] . Issues afterhours and on weekends will be handled by the Hospitalist staff on-call. Signed: GANESH ROSE MD 01/04/2012 * Plan of Care - Shauna Schulzt RN - 01/03/2012 1:09 PM EDT Problem: Pressure Ulcer Risk (Using Adalberto Scale) (Adult, Obstetric) Goal: Pressure Ulcer Risk (using Adalberto Scale): Tissue Integrity Patient's skin remains intact except surgical back incision. Pt encouraged to shift weight while inthe bed or chair to help prevent skin breakdown. Will continue to monitor. Problem: Trauma/Injury Risk (Adult, Obstetric) Goal: Trauma/Injury Risk: Absence of Trauma/Injury/Falls Patient up in chair. Call hernandez within reach. Spouse at bedside. Pt encouraged to call if needed. Fall program maintained. Pt using assistive device with assistance while ambulating. Will continue to monitor. Problem: Pain, Acute (Adult, Obstetric) Goal: Acute Pain: Acceptable Pain Control/Comfort Level - Pain, Acute (Adult, Obstetric) Discussed pain management with patient. Pt verbalizes understanding of this. Patient states that the pain level is tolerable. See MAR for pain medication given. Call hernandez within reach. Will continue to monitor. * Plan of Care - Shauna Schultz RN - 01/02/2012 4:16 PM EDT Problem: Pressure Ulcer Risk (Using Adalberto Scale) (Adult, Obstetric) Goal: Pressure Ulcer Risk (using Adalberto Scale): Tissue Integrity Patient's skin remains intact except surgical back incision. Pt encouraged to shift weight while inthe bed or chair to help prevent skin breakdown. Will continue to monitor. Problem: Trauma/Injury Risk (Adult, Obstetric) Goal: Trauma/Injury Risk: Absence of Trauma/Injury/Falls Patient resting comfortably in the chair. Call hernandez within reach. Pt encouraged to call if needed. Fall program maintained. Pt using assistance while ambulating. Will continue to monitor. Problem: Pain, Acute (Adult, Obstetric) Goal: Acute Pain: Acceptable Pain Control/Comfort Level - Pain, Acute (Adult, Obstetric) Discussed pain management with patient. Pt verbalizes understanding of this. Patient states that the pain level is tolerable. Call hernandez within reach. Will continue to monitor. * Initial Assessments - Lupe Rea, OT - 01/02/2012 3:36 PM EDT Occupational Therapy Evaluation Patient profile: Patient is a 41 y[address] male of Dr. Howard , admitted on 01/01/2012 with L5-L6 disc disruption and left sciatica causing pain and dysfunction. He has fallen in the past due to sudden left leg weakness. He underwent L4-5-S1 Posterior fusion with instrumentation and L5-S1 TLIF from the left side with 7mm PEEK cage, and ICBG from the left iliac crest. PMH: Past Medical History Diagnosis Date ??? Lumbago with sciatica of left side ??? Hypertension ??? Chewing tobacco use ??? Obesity, Class II, BMI 35-39.9 ??? Alcohol abuse Social History: . Lives with his and 18 year old son. He has been using a quad cane at home due to left leg weakness and pain. Had been able to walk and perform ADL's independently. His works outside the home. Unsure height of toilet at home and reports no leverage points near it (has wall on one side, and towel storage unit on other side). Pt has a tub shower in the home. Stairs at home: 3-4 to enter and 1 flight to the bedrooms with rail on left going up. Equipment at home: has a quad cane. Will need a fww. Has Cot to sleep on. Precautions/Special Considerations: no twisting, bending, lifting; full code. Subjective: It's better than this morning. Objective: Seen today for OT evaluation. Cognitive Status/Behavior: alert, oriented to person, place, and time and affect appropriate to mood Vision & Perception: has reading glasses, and denies other issues. Range of motion, strength, coordination: Hand dominance: right Bilateral UEs are within functional limitations B LEs moving slowly, but against gravity. Sensation: reports numbness in R thigh 2' positioning for surgery, and diminished sensation in LEs Activities of Daily Living: Self-feeding: Independent with setup Hygiene grooming: Independent with setup- seated. Upper and lower body self care and bathing: ?? Reviewed hip precautions. ?? Pt unable to don own socks today 2' precautions, pain, decreased ability to achieve figure 4 2' body habitus. Anticipate will need adaptive equipment. ?? Discussed home bathroom set-up. Pt has a tub shower and can barely lift feet 6 inches from floor, so anticipate stepping into tub will be challenge. Discussed getting shower chair with back for shower, and how to do seated transfer into tub via seat. Toileting: schwartz catheter out. Using urinal independently. ?? Discussed home toilet set-up. Pt unsure of height. Will have son measure height of toilet to determine if will need rise with arms, or commode for it. Pt with no leverage points near toilet. ?? Toilet Hygiene: Pt instructed not to twist for trey-care. Pt stood up from chair and demonstrated ability to do task without twisting. Functional Mobility:already OOB Sit to stand: contact guard slow transition and cues not to pull on walker Ambulation: supervision with FWW across the room and back at a slow pace Stand to sit: supervision Balance: Good sitting; and standing with supervision/CG A with FWW. IADL???s: Assistance available to patient. Endurance: Information taken from last recorded vitals in flowsheet. Last value Range last 8 hrs Heart Rate Heart Rate: 69 Heart Rate: [63-69] Blood Pressure BP: 99/61 mmHg BP: (99-113)/(56-61) SpO2 SpO2: 98 % SpO2: [98 %] Pt on room air. Pain: C/o moderate discomfort during session, but moving more easily than this morning. Coordinatedwith nursing to see Pt shortly after medication. Skin: incision on back intact, still has drain in. Obese. Informed Consent: The patient agrees to and understands the OT treatment plan and goals. Education: patient have been educated on Role of occupational therapy/rehabilitation, Transfers, Assistive device/technique, ADL, Precautions/Protocol, Functional Mobility, Recommendations and Discharge planning and needs reinforcement. Patient status, treatment, and mobility recommendations discussed with nursing. Assessment: Pt has been seen by OT for evaluation. Pt s/p above back surgery, and doing better this afternoon, but still experiencing moderate pain. Pt presents with impaired ability to perform daily activities and functional mobility secondary to the pain, new back precautions, body habitus, numbness in R LE and diminished sensation. Pt would benefit from ongoing OT services to maximize functional independence while hospitalized. Recommendations: Equipment needs at discharge: Rolling walker and Shower chair with back, and ? Commode vs. Rise with arms (depending how what the height of toilet is at home. Son to measure height of toilet). Discharge Recommendations: Home with and Patient would benefit from continued therapeutic interventions 2-3 times a week as provided in a home environment to progress toward functional goals. Goals: To be achieved by 01/02-01/03. 1. Patient will demonstrate knowledge of precautions and weight bearing limitations independently during functional mobility and ADL's. 2. Patient will perform sink level ADL???s independently Using FWW. 3. Patient will perform lower body dressing independently using good mechanics and adaptive equipment as needed. 4. Patient to perform sit-stand transfers independently utilizing least restrictive device. 5. Patient will ambulate independently to/from the bathroom with FWW. 6. Patient will be able to navigate around the kitchen with FWW independently and obtain items by squatting vs. Bending. Plan: Pt to be seen 1-2 more times for therapy including Role of occupational therapy/rehabilitation, Transfers, Assistive device/technique, Adaptive equipment training, ADL, Safety, Precautions/Protocol, Functional Mobility, Home Management, Recommendations and Discharge planning. Total time spent with patient: 50 minutes Total timed interventions: 0 minutes Pager: [phone] LUPE REA OT 01/02/2012 Occupational Therapy Rehabilitation Department * Initial Assessments - Vanita Mckee, PT - 01/02/2012 9:15 AM EDT Physical Therapy Evaluation Patient profile: Patient is a 41 [address] of [address] Howard, admitted on 01/01/2012 with L5-L6 disc disruption and left sciatica causing pain and dysfunction. He has fallen in the past due to sudden left leg weakness. He underwent L4-5-S1 Posterior fusion with instrumentation and L5-S1 TLIF from the left side with 7mm PEEK cage, and ICBG from the left iliac crest. Referred to PT per pathway for instruction and mobility. PMH: Past Medical History Diagnosis Date ??? Lumbago with sciatica of left side ??? Hypertension ??? Chewing tobacco use ??? Obesity, Class II, BMI 35-39.9 ??? Alcohol abuse Social History: . Lives with his and 18 year old son. He has been using a quad cane at home due to left leg weakness and pain. Had been able to walk and perform ADL's independently. His works outside the home. Stairs at home: 3-4 to enter and 1 flight to the bedrooms with rail on left going up. Equipment at home: has a quad cane. Will need a fww. Precautions/Special Considerations: no twisting, bending, lifting; full code. Subjective: I thought I was going to be able to walk now, but the pain just picked up and I don't think I can. I feel funny. Objective: Pt was seen for evaluation. Pain: 8/10 with standing and with mobility in back and left buttock. Vital Signs: Sp02: 98% on RA HR: 90's BP: 116/54 sitting after he said that he felt funny. Mental Status/Behavior: wnl Strength: wnl Sensation: some decrease in sensation ant thighs. Skin: incision covered. Drain in place. Bed Mobility: Not observed. He had gotten out of bed with nsg. Transfers: 1. Sit <-> Stand with mod assist of 1 from due to pain. Gait: 2. Pt. Marched in place using the walker for about 8 steps before feeling funny, and having too much pain to continue. He then sat back in the cc. He needed cg while in standing for safety. Balance: fair standing balance. Education: Pt was instructed in PT goals and purpose. He was instructed to change position with nsgassist every 1-2 hours. Patient status, treatment, and mobility recommendations discussed with nursing. Assessment: Pt is quite limited by pain and hypotension today. I think that he will progress quickly when pain improved as he is strong and mobile prior to surgery. Feel that pt would benefit from continued skilled physical therapy for mobility, instruction, gait,stairs and home safety instruction. Pt is in agreement with plan and goals of therapy. Goals: To be achieved by 01/04/12. 1. Ind sit to stand 2. Ind with log roll in and out of bed. 3. ind ambulation at least 100' with fww 4. Up and down 1 flight of stairs with cg and rail. Plan: Pt to be seen daily until d/c for mobility, instruction, gait, stairs and home safety instruction. Discharge Recommendations: Home with family and VNA PT for home safety eval. He will need a FWW for home. Total time spent with patient: 25 minutes Total timed interventions: 0 minutes Pager: [phone] VANITA MCKEE PT Physical Therapy Rehabilitation Department * Plan of Care - Morena Snowden RN - 01/02/2012 12:48 AM EDT Problem: Pressure Ulcer Risk (Using Adalberto Scale) (Adult, Obstetric) Goal: Pressure Ulcer Risk (using Adalberto Scale): Tissue Integrity Patient with incision to midline back, davol site to back as well, otherwise skin is intact. Patient educated as to the importance of frequent repositioning. Patient encouraged to call for nursing assistance with repositioning. Patient repositioned with 2 person assist. Problem: Trauma/Injury Risk (Adult, Obstetric) Goal: Trauma/Injury Risk: Absence of Trauma/Injury/Falls Patient alert and oriented x 4, call hernandez in reach. Patient encouraged to call for nursing assist when needed. Problem: Laminectomy, Laminotomy or Discectomy (Adult) Goal: Prevent/Manage Potential Problems Based on my scope of practice, I assessed for signs and symptoms of potential problems that could be present as documented. Patient reminded to keep shoulders in line with his hips when moving so as to prevent bending or twisting. Problem: Pain, Acute (Adult, Obstetric) Goal: Acute Pain: Acceptable Pain Control/Comfort Level - Pain, Acute (Adult, Obstetric) Patient rates pain at 6-9/10, patient using airveyor operator appropriately, oral dilaudid also used to help control pain. Repositioning used as well with good effect. Will continue to monitor. * Op Note - Asael Jimenez - 01/01/2012 1:25 PM EDT [facility] Operative Note Patient Name: Yasmani Glaesr : [id number] MR#: [id number] Case Date: 01/01/2012 Surgeon: Surgeon(s) and Role: * RODOLFO HOWARD MD - Primary * ASAEL JIMENEZ MD - Resident-Surgeon Victor M Preoperative diagnosis: L4-5-S1 TLIF and ICBG Postoperative diagnosis: L4-5-S1 TLIF and ICBG Procedure: L4-5-S1 Posterior fusion with instrumentation and L5-S1 TLIF from the left side with 7mmPEEK cage, and ICBG from the left iliac crest. CPT codes: 52728 (L5-S1) 62258 (L4-5-S1), 52022 (L5-S1 cage), 32134 (ICBG), 85002 (L4-5) Fluids: 2800ml, 500ml Hespan Estimated Blood Loss: 800ml Drains: Davol x 1 Disposition: awakened from anesthesia, extubated and taken to the recovery room in a stable condition, having suffered no apparent untoward event. Condition: doing well without problems (Please see the Surgical Encounter Summary for any Implant and Specimen details pertinent to this patient.) Implant Name Type Inv. Item Serial No. Stunner Animal Lot No. LRB No. Used Action CAP,ED,REVERE,LCKNG ([id number]) (AUTOREQ) - [id number] IMPLANTS CAP,ED,REVERE,LCKNG ([id number]) (AUTOREQ) [employer] - [id number] Left 6 Implanted ALLOGRAFT,SUSTAIN,RT ARCH,7MM ([id number]) (AUTOREQ) - [id number] IMPLANTS ALLOGRAFT,SUSTAIN,RT ARCH,7MM ([id number]) (AUTOREQ) [employer] - [id number] Left 1 Implanted SCREW,PYXL,REVERE,6.5X30MM ([id number]) (AUTOREQ) - [id number] IMPLANTS SCREW,PYXL,REVERE,6.5X30MM ([id number]) (AUTOREQ) [facility] - [id number] Left 1 Implanted SCREW,PYXL,REVERE,6.5X35MM ([id number]) (AUTOREQ) - [id number] IMPLANTS SCREW,PYXL,REVERE,6.5X35MM ([id number]) (AUTOREQ) [facility] - [id number] Left 1 Implanted PEPE,SPNL,REVERE,CRVD,5.5X75MM ([id number]) (AUTOREQ) - [id number] IMPLANTS PEPE,SPNL,REVERE,CRVD,5.5X75MM ([id number]) (AUTOREQ) [facility] [id number] Left 2 Implanted SCREW,PYXL,REVERE,6.5X40MM ([id number]) (AUTOREQ) - [id number] IMPLANTS SCREW,PYXL,REVERE,6.5X40MM ([id number]) (AUTOREQ) [facility] - [id number] Left 1 Implanted SCREW,PYXL,REVERE,6.5X45MM ([id number]) (AUTOREQ) - [id number] IMPLANTS SCREW,PYXL,REVERE,6.5X45MM ([id number]) (AUTOREQ) [facility] - [id number] Left 3 Implanted FINDINGS: The L5-S1 disc was degenerated, with loosed disc and cartilaginous fragments which were removed completely, leaving the peripheral anterior annulus only. INDICATIONS FOR PROCEDURE: This is a 41 y.o.-year-old male with left lower extremity sciatica symptoms with foraminal stenosisconfirmed by imaging studies that has failed non-operative management. After a discussion regardingthe risks and benefits of instrumented fusion they wished to pursue operative treatment. Please seethe office notes for details of this discussion. DESCRIPTION OF PROCEDURE: The patient was correctly identified in the same day holding area, the operative site was marked and consent was confirmed by the team. The pre-operative checklist was completed. The patient was wheeled to the operating room where a general anesthetic was administered while supine on the stretcher.SCDs were placed. A schwartz catheter was introduced under sterile conditions. The patient was then transitioned to the prone position on the Roby table making sure all bony prominences were well padded. Preoperative antibiotics were given. A time- out was performed to confirm patient identity, planned surgery, and site according to the [facility] [place] Protocol. The back was then prepped using chlor hexidine, alcohol and chloraprep then draped in the usual sterile fashion. Using the iliac wing to help define the patients anatomy an incision was marked on the skin with a marking pen. An incision directly over the proposed surgical levels was made. Soft tissue dissectioncontinued with a scalpel followed by Bovie electrocautery to obtain hemostasis down to the level ofthe spinous processess. We proceeded with a subperiosteal dissection starting with the tip of the spinous process at the L4 level and dissecting distally to the S1 level. Our dissection was carried out laterally over the lamina out to the facet. Being cautious not to disrupt the facet capsule we dissected out laterally to expose the transverse processes of L4 through S1. Hemostasis was obtained using electrocautery. Once all of the transverse processes were adequately exposed C-arm imaging was brought in and we began placing pedicle screws. We first used the karen to prepare the transverse processes and lateral facets for fusion. Using the transverse processes and facet joints as our landmarks we used the awl in combination with intra-operative C-arm to find the starting point for our pedicle screws starting at S1. After the awl a pedicle finder was used to locate the pedicle and determine our screw length.A ball tipped probe was used within the pedicle to confirm no cortical breach occurred. This was done in a similar fashion to insert screws from L5 to L4. All pedicle screw placement was confirmed onAP and lateral intra-operative fluoroscopy. Remaining superficial to the fascia, soft tissue was then dissected laterally on the left side towards the iliac crest. The posterior superior iliac crest was palpated and identified. Bovie electrocautery was used to maintain hemostasis. The dissection was carried out to the brim of the iliac crest. Osteotomes were then used to create a tricortical window of iliac crest bone and this was raised to expose the cancellous bone within the crest. Gouges were used between the inner and outer tables of the iliac wing to harvest bone graft. After an adequate amount of bone graft was felt to be harvested, the bone was irrigated and the exposed bony surfaces were packed with bone wax. The overlying bone window was sutured back into place using 0 vicryl. The fascia was closed using 0 Vicryl sutures in an interrupted fashion closing the tissue plane created out to the crest. At this point our attention turned back to the instrumentation. The rods were placed and the endcaps were placed. The distal screw was placed and our attention was then turned to the TLIF. The inferior aspect of the left L5 lamina was burred and then removed piecemeal using a kerosine. Once the bone had been removed exposing the lateral aspect of the exiting nerve root, a nerve root retractor wasplaced and the dura was retracted medially to expose the left side of the L5 disc space. Hemostasiswas obtained with bipolar electrocautery and thrombin soaked gelfoam and patties. A 15 blade on a long handle was used to carefully incise the disc. A pituitary was then used to remove the disc material from the interspace. A 7mm endplate shaver was inserted into the disc space to remove the cartilage from the surrounding endplates. A curette was used to remove any remaining disc and cartilage from the disc space. Once the disc space was adequately prepared bone graft was packed into the disk space. An 7mm TLIF cage was then carefully inserted into the disk space and rotated into the appropriate position. Bone graft was packed posterior to the cage and the nerve root retractor was then removed. Once this was complete all screws were tightened while using the compressor instrument between the L5-S1. The final tightening was performed with the torque limiting screw driver trainer. Throughout the casethe wound was copiously irrigated using a bulb syringe. Approximately 15mL of bone graft was then placed in the lateral gutters and over the lamina to allow for fusion. 1gm of Vancomycin powder was sprinkled in the wound over the bone graft. A deep drain was placed out a separate poke hole and connected to a drain. Bleeding was controlled using Bovie electrocautery before closure. 0 Vicryl sutures were used to reapproximate the fascial layer in an interrupted fashion. After the fascia was closed, the wound was irrigated again and closed using 0 Vicryl sutures deep followed by a running 3-0 Monocryl. Mastisol and Steri- Strips were applied to the wound which was then dressed with sterile 4x4s and a Tegaderm. A post-operative sign out was held. The patient was then transferred back to the stretcher and extubated without difficulty. he was taken to the recovery room in stable condition. There were no obvious intraoperative complications at the end of the case and . All needle, sponge and instrument countswere correct at the end of the procedure. Dr. Howard was present, scrubbed and supervised all integral portions of the procedure. * OR Attestation - Rodolfo Howard MD - 01/01/2012 12:57 PM EDT Attestation: Case Date: 01/01/2012 I was present and I participated during the entire procedure (does not need to include opening and closing). RODOLFO HOWARD MD 01/01/2012 * Brief Op Note - Rodolfo Howard MD - 01/01/2012 12:52 PM EDT Brief Operative Note Patient Name: Yasmani Glaser : [id number] MR#: [id number] Case Date: 01/01/2012 Surgeon: Surgeon(s) and Role: * RODOLFO HOWARD MD - Primary * ASAEL JIMENEZ MD - Resident-Surgeon Victor M Preoperative diagnosis: L4-5-S1 TLIF and ICBG Postoperative diagnosis: L4-5-S1 TLIF and ICBG Procedure(s): LAMINECTOMY, FACETECTOMY & FORAMINOTOMY,LUMAR, ONE LEVEL ADD'L INTERSPACES CX., THORACIC, LUMBAR @ARTHRODESIS, POST. LUMBAR, SINGLE INTERSPACE ARTHRODESIS, LUMBAR SPINE, SINGLE LEVEL ARTHRODESIS, POSTERIOR VERTEBRAL EA.ADD. SEGMENT @POST SPINAL INSTRUMENTATION, 3-6 VERTEBRA, NON SEGMENTAL @AUTOGRAFT FOR SPINE SURGERY ONLY; MORSELIZED (THROUGH SEPARATE SKIN OR FASCIAL INCISION) MODIFIER GLOBUS REVERE MODIFIER L4 MODIFIER L5 MODIFIER S1 Procedure: L4-5-S1 Posterior fusion with instrumentation and L5-S1 TLIF from the left side with 7mmPEEK cage, and ICBG from the left iliac crest. CPT codes: 04293 (L5-S1) 23263 (L4-5-S1), 07960 (L5-S1 cage), 28139 (ICBG), 49413 (L4-5) Anesthesia: General Findings: The L5-S1 disc was degenerated, with loosed disc and cartilaginous fragments which were removed completely, leaving the peripheral anterior annulus only. ICBG harvested from left side. 7mm PEEK cage for TLIF at L5-S1 from left side done. L4-5 only postero-lateral fusion done. Complications: Nil Fluids: 2800ml, 500ml Hespan Estimated Blood Loss: 800ml Drains: One deep drain Disposition: awakened from anesthesia, extubated and taken to the recovery room in a stable condition, having suffered no apparent untoward event. Condition: doing well without problems (Please see the Surgical Encounter Summary for any Implant and Specimen details pertinent to this patient.) * Miscellaneous - Provider, Scanning - 01/01/2012 6:59 AM EDT documented in this encounter Plan of Treatment Pending Results Name Type Priority Associated Diagnoses Date /Time XR FLUORO OR C-ARM STORAGE ONLY Imaging Routine Sciatica 01/01/2012 11:00 AM EDT Scheduled Orders Name Type Priority Associated Diagnoses Orde r Schedule XR FLUORO OR C-ARM STORAGE ONLY Imaging Routine Sciatica Once PRN (for Radiant use) for 1 Occurrences starting 01/01/2012 until 01/01/2012 documented as of this encounter Procedures Procedure Name Priority Date/Time Associated Diagnosis Comments ARTHRODESIS, COMB. POST OR POSTEROLAT W/LAMI &/OR DISC SINGLE; LUMBAR Routine 01/02/2012 7:59 AM EDT Sciatica of left side PLACEMENT INTERVERTEB BIOMECH DEV TO VERTEBRAL DEFECT OR INTERSPACE Routine 01/02/2012 7:59 AM EDT Sciatica of left side POST SPINAL INSTRUMENTATION, 3-6 VERTEBRA,NON SEGMENTAL Routine 01/02/2012 7:59 AM EDT Sciatica of left side ARTHRODESIS,LUMBAR SPINE,SINGLE LEVEL Routine 01/02/2012 7:59 AM EDT Sciatica of left side AUTOGRAFT FOR SPINE SURGERY ONLY;MORSELIZED Routine 01/02/2012 7:59 AM EDT Sciatica of left side DIFFERENTIAL, AUTOMATED Routine 01/02/20 12 3:36 AM EDT CBC (WITH DIFF) Routine 01/02/2012 3:36 AM EDT BASIC METABOLIC PANEL Routine 01/02/2012 3:36 AM EDT XR LUMBAR SPINE 2 OR 3 VIEWS Routine 01/01/2012 4:54 PM EDT HEMOGRAM Routine 01/01/2012 3:03 PM EDT PLACEMENT INTERVERTEBRAL BIOMECHANICAL DEV TO VERTEBRAL DEFECT OR INTERSPACE (WRVU 6.7) 01/01/2012 7:20 AM EDT Sciatica of left side ARTHRODESIS, COMB. POST OR POSTEROLAT W/LAMI &/OR DISC SINGLE INTERSPACE; LUMBAR (WRVU 26.8) 01/01/2012 7:20 AM EDT Sciatica of left side MODIFIER S1 01/01/2012 7:20 AM EDT Sciatica of left side MODIFIER L5 01/01/2012 7:20 AM EDT Sciatica of left side MODIFIER L4 01/01/2012 7:20 AM EDT Sciatica of left side MODIFIER GLOBUS REVERE 2 7:20 AM EDT Sciatica of left side AUTOGRAFT FOR SPINE SURGERY ONLY; MORSELIZED (THROUGH SEPARATE SKIN OR FASCIAL INCISION) (WRVU 2.79) 01/01/2012 7:20 AM EDT Sciatica of left side POST SPINAL INSTRUMENTATION, 3-6 VERTEBRA, NON SEGMENTAL (WRVU 12.56) 01/01/2012 7:20 AM EDT Sciatica of left side ARTHRODESIS, LUMBAR SPINE, SINGLE INTERSPACE (WRVU 23.53) 01/01/2012 7:20 AM EDT Sciatica of left side documented in this encounter Results * (ABNORMAL) DIFFERENTIAL, AUTOMATED (01/02/2012 3:36 AM EDT) Neutrophil % 77.1(H) 34.0 - 71.0 % CERNER MILLENNIUM Neutrophil Absolute 9.79(H) 1.50 - 6.30 x10(3)/mc L CERNER MILLENNIUM Lymph % 15.1(L) 19.0 - 53.0 % CERNER MILLENNIUM Lymphocytes Abs 1.9 1.0 - 3.6 x10(3)/mc L CERNER MILLENNIUM Monocyte % 7.5 4.0 - 13.0 % CERNER MILLENNIUM Monocyte Abs 1.0 0.2 - 1.0 x10(3)/mc L CERNER MILLENNIUM Eos % 0.2 0.0 - 7.0 % CERNER MILLENNIUM Eosinophils Abs 0.0 0.0 - 0.5 x10(3)/mc L CERNER MILLENNIUM Basophil % 0.0 0.0 - 2.0 % CERNER MILLENNIUM Baso Absolute 0.0 0.0 - 0.2 x10(3)/mc L CERNER MILLENNIUM Immature Gran % 0.10 0.00 - 0.66 % CERNER MILLENNIUM Comment: Immature granulocytes(IG's)percentage and absolute count will include metamyelocytes, myelocytes, and promyelocytes. Blood smears from CBCs yielding IG's will be scanned manually for concordance. If this scan disagrees with the automated IG or if promyelocytes are noted, a manual differential will be performed. Immature Gran Absolute 0.01 0.00 - 0.05 x10(3)/mc L CERNER MILLENNIUM Blood specimen (specimen) 01/02/2012 3:36 AM EDT 01/02/2012 3:53 AM EDT Rodolfo Howard MD HEMATOLOGY ORDERABLE S [facility] * (ABNORMAL) Basic Metabolic Panel (non-fasting) (01/02/2012 3:36 AM EDT) [facility] Glucose 117 60 - 199 mg/dL CERNER MILLENNIUM Comment:Diabetes: >=200 mg/d L plus symptoms Blood Urea Nitrogen 9(L) 10 - 20 mg/dL CERNER MILLENNIUM Creatinine 0.67(L) 0.80 - 1.50 mg/dL CERNER MILLENNIUM Comment: Please note that the pediatric reference intervals supplied above were [place] [facility] [place] Results from pediatric patients should be interpreted in conjunction to the patient's age, height and muscle mass. Sodium 141 135 - 145 mmol/L CERNER MILLENNIUM Potassium 3.5 3.5 - 5.0 mmol/L CERNER MILLENNIUM Comment: Please note: ??Patients with WBC >100,000 may have falsely elevated Potassium levels. ??For accurate Potassium quantification in these patients send serum separator tube (gold top) for subsequent determinations. ??Contact the Clinical Chemistry Laboratory if there are any questions. Chloride 104 98 - 107 mmol/L CERNER MILLENNIUM Carbon Dioxide 32(H) 22 - 31 mmol/L CERNER MILLENNIUM Anion Gap 5 5 - 15 mmol/L CERNER MILLENNIUM Calcium 7.8(L) 8.5 - 10.5 mg/dL CERNER MILLENNIUM Est Glomerular Filtration Rate >60 >=60 CERNER MILLENNIUM Comment: The National Kidney Disease Education Program (NKDEP) has recommended all laboratories report estimated GFR (eGFR) along with plasma creatinine measurements to assist you with recognition of early kidney disease. Caveats: ??Plasma creatinine should be at steady-state (unchanged within the past week). For patients multiply eGFR by 1.2. The MDRD equation was developed using patients between the ages of 18 and 70 years. ?? The MDRD equation has not been validated for patients < 18 years of age and should not be used to assess renal function in the pediatric population. ??The MDRD eGFR equation will also overestimate the true GFR of patients above the age of 70. ??This overestimation is variable but increases with age. At present, NKDEP does NOT recommend using the MDRD equation for drug dosing purposes and pharmacists should continue to use their current dosing methods. In addition, numerical eGFR values greater than 60 ml/min/1.73 square meters should be treated as > 60, and not an exact number due to greater inaccuracies at these higher values. Per NKDEP, they classify normal renal function as any GFR >60ml/min/1.73 square meters; chronic kidney disease when GFR <60, and renal failure when GFR <15. ??This calculation may not be valid for patients with atypical muscle mass (very lean or obese), acute renal failure, and in patients with diabetic kidney disease. References: http://nkdep.nih.gov/resources/NKDEP_Suggestn4Labs_0606_508.pdf http://www.kidney.org/professionals/kls/pdf/faq_gfr.pdf Ajay K, Sarahy NA, Dewayne AK, Fawad TS, Lianne AD, Vinicio GASTON. Relative performance of the MDRD and CKD-EPI equations for estimating glomerular filtration rate among patients with varied clinical presentations. Clin J Am Soc Nephrol;6:1963-72. Blood specimen (specimen) 01/02/2012 3:36 AM EDT 01/02/2012 3:53 AM EDT Narrative Resulting Agency Comment Spec In Lab Rodolfo Howard MD CHEMISTRY ORDERABLES [facility]ERCAR[facility]A MILLENNI[facility] * (ABNORMAL) CBC (with Diff) (01/02/2012 3:36 AM EDT) White Blood Cell 12.7(H) 4.0 - 10.0 x10(3)/mc L CERNER MILLENNIUM Red Blood Cell 4.10(L) 4.63 - 6.08 x10(6)/mc L CERNER MILLENNIUM Hemoglobin 11.1(L) 13.7 - 17.5 gm/dL CERNER MILLENNIUM Hematocrit 33.7(L) 40.0 - 51.0 % CERNER MILLENNIUM Mean Cell Volume 82.2 79.0 - 92.0 fL CERNER MILLENNIUM Mean Cell Hemoglobin 27.1 25.6 - 32.2 pg CERNER MILLENNIUM Mean Cell Hemoglobin Concentration 32.9 32.0 - 36.5 gm/dL CERNER MILLENNIUM Platelet 299 145 - 370 x10(3)/mc L CERNER MILLENNIUM RDW Standard Deviation 43.7 35.0 - 46.0 fL CERNER MILLENNIUM RDW coefficient of variation 14.5(H) 10.9 - 14.4 % CERNER MILLENNIUM Mean Platelet Volume 10.2 9.0 - 12.0 fL CERNER MILLENNIUM Blood specimen (specimen) 01/02/2012 3:36 AM EDT 01/02/2012 3:53 AM EDT Narrative Resulting Agency Comment Spec In Lab Rodolfo Howard MD HEMATOLOGY ORDERABLE S Performing Organization Address City/[facility]/ZIP Co de Phone Number EVELIA ZAPATAIUM * XR lumbar spine 2 or 3 views (01/01/2012 4:54 PM EDT) Anatomical Region Laterality Modality L-spine N/A Radiographic Celina ging 01/01/2012 4:54 PM EDT Narrative 01/01/2012 5:05 PM EDT Examination LSPINE 2 OR 3 VIEWS/CORE Clinical History Reason for exam and clinical history: s/p L4-S1 fusion; Comparison None. Technique 2 views of the lumbar spine. Findings Patient is status post L4-S1 fusion. ??There are rods and pedicle screws seen. ?? There is a drain seen. ??There are 2 metallic opacity seen in the region of the L5-S1 disc space presumably related to the surgery. ??There is no there is mild subluxation of L5 relative to S1. ??There is anterolisthesis. ??There is evidence of degenerative change. ??I do not have a comparison film. ??Mild degenerative changes seen in the upper lumbar spine. ?? Impression status post L4-S1 fusion with a drain in place. ??Mild subluxation of L5 on S1 Procedure Note Gely Agarwal MD - 01/01/2012 Examination LSPINE 2 OR 3 VIEWS/CORE Clinical History Reason for exam and clinical history: s/p L4-S1 fusion; Comparison None. Technique 2 views of the lumbar spine. Findings Patient is status post L4-S1 fusion. There are rods and pedicle screwsseen. There is a drain seen. There are 2 metallic opacity seen in the region ofthe L5-S1 disc space presumably related to the surgery. There is no there ismild subluxation of L5 relative to S1. There is anterolisthesis. There isevidence of degenerative change. I do not have a comparison film. Milddegenerative changes seen in the upper lumbar spine. Impression status post L4-S1 fusion with a drain in place. Mild subluxation of L5 onS1 Rodolfo Howard MD IMG DX ORDERABLES * (ABNORMAL) Hemogram (01/01/2012 3:03 PM EDT) White Blood Cell 14.5(H) 4.0 - 10.0 x10(3)/mc L CERNER MILLENNIUM Red Blood Cell 4.08(L) 4.63 - 6.08 x10(6)/mc L CERNER MILLENNIUM Hemoglobin 11.2(L) 13.7 - 17.5 gm/dL CERNER MILLENNIUM Hematocrit 33.0(L) 40.0 - 51.0 % CERNER MILLENNIUM Mean Cell Volume 80.9 79.0 - 92.0 fL CERNER MILLENNIUM Mean Cell Hemoglobin 27.5 25.6 - 32.2 pg CERNER MILLENNIUM Mean Cell Hemoglobin Concentration 33.9 32.0 - 36.5 gm/dL CERNER MILLENNIUM Platelet 313 145 - 370 x10(3)/mc L CERCAROLA MILLENNIUM RDW Standard Deviation 42.2 35.0 - 46.0 fL CERNER MILLENNIUM RDW coefficient of variation 14.3 10.9 - 14.4 % EVELIA MILLENNIUM Mean Platelet Volume 10.3 9.0 - 12.0 fL EVELIA MAXWELLENNIUM Blood specimen (specimen) 01/01/2012 3:03 PM EDT 01/01/2012 3:15 PM EDT Narrative Resulting Agency Comment Spec In Lab Rodolfo Howard MD HEMATOLOGY ORDERABLE S EVELIA FARAH documented in this encounter Visit Diagnoses Diagnosis L4-S1 PIF with L5-S1 L TLIF- Primary Sciatica Sciatica documented in this encounter Administered Medications Inactive Administered Medications - up to 3 most recent administrations Medication Order MAR Action Action Date Dose Rate Site acetaminophen (TYLENOL) tablet 1,000 mg 1,000 mg, Oral, EVERY 8 HOURS SCHEDULED, First dose on Thu01/01/12 at 1545, Until Discontinued, Maximum dose of acetaminophen is 4000 mg from all sources in 24 hours., Routine Given 01/04/2012 6:00 AM EDT 1,000 mg Given 01/03/2012 9:06 PM EDT 1,000 mg Given 01/03/2012 2:37 PM EDT 1,000 mg ceFAZolin (ANCEF) 1g in dextrose 5% 50mL 1,000 mg (1 g), Intravenous, EVERY 8 HOURS, 3 doses, First dose on Thu01/01/12 at 1530, Last dose on Thu01/02/12 at 0730, Administer over 30 Minutes, For 3 doses postoperatively. Adjust to 8 hours from intraoperative dose., Indication for (Active or Suspected): Prophylaxis New Bag 01/02/2012 6:39 AM EDT 1,000 mg 100 mL/ hr New Bag 01/01/2012 10:33 PM EDT 1,000 mg 100 mL/hr New Bag 01/01/2012 3:30 PM EDT 1,000 mg 100 mL/hr ceFAZolin (ANCEF) 2g in dextrose 5% 100mL 2 g, Intravenous, ONCE, 1 dose, On Patria 01/01/12 at 0645, Administer over 30 Minutes, To be administered upon arrival to the OR within one hour prior to incision., Day of Surgery (Day of Procedure), Indication for (Active or Suspected): Prophylaxis Given 01/01/2012 8:02 AM EDT 2 g citalopram (celeXA) tablet 20 mg 20 mg, Oral, DAILY, First dose on Thu01/02/12 at 0900, Until Discontinued, Routine Given 01/03/2012 9:06 PM EDT 20 mg Given 01/02/2012 8:26 PM EDT 20 mg esomeprazole (NEXIUM) capsule 40 mg 40 mg, Oral, DAILY, First dose on Patria 01/01/12 at 1845, Until Discontinued, Routine Given 01/04/2012 9:29 AM EDT 40 mg Given 01/03/2012 8:08 AM EDT 40 mg Given 01/02/2012 8:22 AM EDT 40 mg HYDROmorphone (DILAUDID) injection 0.2-0.4 mg 0.2-0.4 mg, Intravenous, EVERY 5 MIN PRN, Starting on Patria 01/01/12 at 1233, Until Patria 01/01/12 at 1627, Pain, PACU Recovery, Routine Given 01/01/2012 3:37 PM EDT 0.4 mg Given 01/01/2012 3:22 PM EDT 0.4 mg Given 01/01/2012 3:00 PM EDT 0.4 mg HYDROmorphone (DILAUDID) tablet 4 mg 4 mg, Oral, EVERY 4 HOURS PRN, Starting on Patria 01/01/12 at 1359, Until 01/03/12 at 0520, Pain, For Moderate pain. Do not exceed 6 mg in 4 hours. If pain not relieved, call provider., Routine Given 01/01/2012 3:30 PM EDT 4 mg HYDROmorphone (DILAUDID) tablet 6 mg 6 mg, Oral, EVERY 4 HOURS PRN, Starting on Patria 01/01/12 at 1359, Until 01/03/12 at 0520, Pain, For Severe pain. Do not exceed 6 mg in 4 hours. If pain not relieved, call provider., Routine Given 01/03/2012 2:00 AM EDT 6 mg Given 01/02/2012 10:01 PM EDT 6 mg Given 01/02/2012 5:22 PM EDT 6 mg HYDROmorphone (DILAUDID) tablet 6 mg 6 mg, Oral, EVERY 3 HOURS PRN, Starting on 01/03/12 at 0519, Until 01/03/12 at 0639, Pain, For Severe pain. Do not exceed 6 mg in 4 hours. If pain not relieved, call provider., Routine Given 01/03/2012 5:10 AM EDT 6 mg HYDROmorphone (DILAUDID) tablet 8 mg 8 mg, Oral, EVERY 3 HOURS PRN, Starting on 01/03/12 at 0638, Until 01/04/12 at 1709, Pain, For Severe pain. Do not exceed 6 mg in 4 hours. If pain not relieved, call provider., Routine Given 01/04/2012 12:31 PM EDT 8 mg Given 01/04/2012 9:29 AM EDT 8 mg Given 01/04/2012 5:45 AM EDT 8 mg ibuprofen (ADVIL;MOTRIN) tablet 800 mg 800 mg, Oral, ONCE, 1 dose, On Thu01/02/12 at 1045, Maximum dose of 3200 mg from all sources in 24 hours, Routine Given 01/02/2012 11:00 AM EDT 800 mg lactated ringers infusion 1,000 mL 1,000 mL, at 100 mL/hr, Intravenous, CONTINUOUS, Starting on Patria 01/01/12 at 1415, Until 01/04/12 at 1709 New Bag 01/02/2012 1:11 AM EDT 1,000 mLs 100 m L/hr New Bag 01/01/2012 2:15 PM EDT 1,000 mLs 100 mL/hr lidocaine (LIDODERM) 5 %(700 mg/patch) patch 1 patch 1 patch, Transdermal, DAILY, First dose on Thu01/02/12 at 1400, Until Discontinued, Apply patch(es) for 12 hours, and then remove for 12 hours, Routine Given 01/04/2012 9:28 AM EDT 1 patch Given 01/03/2012 8:14 AM EDT 1 patch Given 01/02/2012 5:22 PM EDT 1 patch lidocaine (LIDODERM) patch REMOVAL Transdermal, NIGHTLY, First dose on Thu01/02/12 at 2100, Until Discontinued, Remove Lidocaine Patch Given 01/03/2012 9:07 PM EDT 1 patch Given 01/02/2012 8:26 PM EDT 1 patch morphine 1 mg/mL COLD SAW OPERATOR 30 mL Intravenous, COLD SAW OPERATOR ONLY, Starting on Patria 01/01/12 at 1415, Until 01/03/12 at 0639, LOADING DOSE (0-4 mg): zero, COLD SAW OPERATOR DOSE (0.5-1.5 mg): 1 mg, LOCKOUT INTERVAL (5-20 minutes): : 5 min, CONTINUOUS Infusion Rate (for opioid tolerant patients only): zero, FOUR HOUR DOSE LIMIT (5-30 mg): : 30 mg New Syringe/Cartridge 01/01/2012 9:52 PM EDT mL/hr New Syringe/Cartridge 01/01/2012 2:15 PM EDT mL /hr multivitamin (THERAGRAN) tablet 1 tablet 1 tablet, Oral, DAILY, First dose on Thu01/02/12 at 0900, Until Discontinued Given 01/04/2012 9:28 AM EDT 1 tablet Given 01/03/2012 8:08 AM EDT 1 tablet Given 01/02/2012 8:22 AM EDT 1 tablet senna-docusate (PERICOLACE) 8.6-50 mg per tablet 1-4 tablet 1-4 tablet, Oral, 2 TIMES DAILY, First dose on Thu01/01/12 at 2100, Until Discontinued, Start with 1 tablet or liquid equivalent orally twice daily and titrate up to achieve: 1. One bowel movement at least every 48 hours, AND 2. Without straining, Routine Given 01/04/2012 9:00 AM EDT 4 tablets Given 01/03/2012 9:07 PM EDT 2 tablets Given 01/03/2012 8:07 AM EDT 3 tablets sodium chloride 0.9 % flush 5 mL 5 mL, Intravenous, EVERY 12 HOURS, First dose on Patria 01/01/12 at 1800, Until Discontinued Given 01/04/2012 6:00 AM EDT 5 mLs Given 01/03/2012 5:45 PM EDT 5 mLs Given 01/03/2012 6:00 AM EDT 5 mLs traZODone (DESYREL) tablet 100 mg 100 mg, Oral, NIGHTLY, First dose on Patria 01/01/12 at 2100, Until Discontinued, Routine Given 01/03/2012 9:07 PM E DT 100 mg Given 01/02/2012 8:27 PM EDT 100 mg Given 01/01/2012 9:51 PM EDT 100 mg documented in this encounter Active and Recently Administered Medications Times are shown in EDT. Scheduled Medication Order 01/02/2012 01/03/2012 01/04/2012 acetaminophen (TYLENOL) tablet 1,000 mg 1,000 mg, Oral, EVERY 8 HOURS SCHEDULED, First dose on Patria 01/01/12 at 1545, Until Discontinued, Maximum dose of acetaminophen is 4000 mg from all sources in 24 hours., Routine 0518 (Given - Provider: Morena Snowden, INDU)1338 (Given - Provider: Shauna Schultz, INDU)2124 (Given - Provider: Dionna Martines, INDU) 0604 (Given - Provider: Dionna Martines, INDU)1437 (Given - Provider: Shauna Schultz, INDU)2106 (Given - Provider: Dionna Martines, INDU) 0600 (Given - Provider: Tad Bui RN)1400 (Due) ceFAZolin (ANCEF) 1g in dextrose 5% 50mL (COMPLETED) 1,000 mg (1 g), Intravenous, EVERY 8 HOURS, 3 doses, First dose on Patria 01/01/12 at 1530, Last dose on Thu01/02/12 at 0730, Administer over 30 Minutes, For 3 doses postoperatively. Adjust to 8 hours from intraoperative dose., Indication for (Active or Suspected): Prophylaxis 0639 (New Bag - Provider: Morena Snowden, INDU) citalopram (celeXA) tablet 20 mg (CANCELED) 20 mg, Oral, DAILY, First dose on Thu01/02/12 at 0900, Until Discontinued, Routine 2025 (Given - Provider: Dionna Martines RN) 2105 (Given - Provider: Dionna Martines RN) esomeprazole (NEXIUM) capsule 40 mg (CANCELED) 40 mg, Oral, DAILY, First dose on Thu01/01/12 at 1845, Until Discontinued, Routine 821 (Given - Provider: Shauna Schultz RN) 08 (Given - Provider: Shauna Schultz RN) 09 (Given - Provider: Shauna Schultz RN) ibuprofen (ADVIL;MOTRIN) tablet 800 mg (COMPLETED) 800 mg, Oral, ONCE, 1 dose, On Thu01/02/12 at 1045, Maximum dose of 3200 mg from all sources in 24 hours, Routine 1100 (Given - Provider: Shauna Schultz RN) lidocaine (LIDODERM) 5 %(700 mg/patch) patch 1 patch (CANCELED)(Linked Group 1) 1 patch, Transdermal, DAILY, First dose on Thu01/02/12 at 1400, Until Discontinued, Apply patch(es) for 12 hours, and then remove for 12 hours, Routine 1721 (Given - Provider: Shauna Schultz RN) 08 (Given - Provider: Shauna Schultz RN) 09 (Given - Provider: Shauna Schultz RN) lidocaine (LIDODERM) patch REMOVAL (CANCELED)(Linked Group 1) Transdermal, NIGHTLY, First dose on Thu01/02/12 at 2100, Until Discontinued, Remove Lidocaine Patch 2025 (Given - Provider: Dionna Martines RN) 2106 (Given - Provider: Dionna Martines RN) multivitamin (THERAGRAN) tablet 1 tablet (CANCELED) 1 tablet, Oral, DAILY, First dose on Thu01/02/12 at 0900, Until Discontinued 821 (Given - Provider: Shauna Schultz RN) 08 (Given - Provider: Shauna Schultz RN) 09 (Given - Provider: Shauna Schultz RN) senna-docusate (PERICOLACE) 8.6-50 mg per tablet 1-4 tablet 1-4 tablet, Oral, 2 TIMES DAILY, First dose on Thu01/01/12 at 2100, Until Discontinued, Start with 1 tablet or liquid equivalent orally twice daily and titrate up to achieve: 1. One bowel movement at least every 48 hours, AND 2. Without straining, Routine 08 (Given - Provider: Shauna Schultz RN)2100 (Given - Provider: Dionna Martines RN) 08 (Given - Provider: Shauna Schultz, INUD)2107 (Given - Provider: Dionna Martines, INDU) 0900 (Given - Provider: Shauna Schultz RN) sodium chloride 0.9 % flush 5 mL (CANCELED) 5 mL, Intravenous, EVERY 12 HOURS, First dose on Patria 01/01/12 at 1800, Until Discontinued 0517 (Given - Provider: Morena Snowden RN)1720 (Given - Provider: Shauna Schultz RN) 0600 (Given - Provider: Dionna Martines RN)1745 (Given - Provider: Shauna Schultz, INDU) 0600 (Given - Provider: Tad Bui RN) traZODone (DESYREL) tablet 100 mg (CANCELED) 100 mg, Oral, NIGHTLY, First dose on Patria 01/01/12 at 2100, Until Discontinued, Routine 2026 (Given - Provider: Dionna Martines RN) 2106 (Given - Provider: Dionna Martines RN) Continuous Medication Order 01/02/2012 01/03/2012 01/04/2012 lactated ringers infusion 1,000 mL (CANCELED) 1,000 mL, at 100 mL/hr, Intravenous, CONTINUOUS, Starting on Patria 01/01/12 at 1415, Until 01/04/12 at 1709 0111 (New Bag - Provider: Morena Snowden, INDU)0919 (Stopped - Provider: Shauna Schultz RN) PRN Medication Order 01/02/2012 01/03/2012 01/04/2012 HYDROmorphone (DILAUDID) tablet 4 mg 4 mg, Oral, EVERY 3 HOURS PRN, Starting on 01/03/12 at 0638, Until 01/04/12 at 1709, Pain, For Moderate pain. Do not exceed 6 mg in 4 hours. If pain not relieved, call provider., Routine 08 (See Alternative - Provider: Shauna Schultz RN)1113 (See Alternative - Provider: Shauna Schultz RN)1437 (See Alternative - Provider: Shauna Schultz RN)1915 (See Alternative - Provider: Shauna Schultz RN)2328 (See Alternative - Provider: Tad Bui RN) 0235 (See Alternative - Provider: Tad Bui RN)0545 (See Alternative - Provider: Tad Bui RN)0929 (See Alternative - Provider: Shauna Schultz RN)1231 (See Alternative - Provider: Shauna Schultz RN) HYDROmorphone (DILAUDID) tablet 6 mg (CANCELED) 6 mg, Oral, EVERY 4 HOURS PRN, Starting on Patria 01/01/12 at 1359, Until 01/03/12 at 0520, Pain, For Severe pain. Do not exceed 6 mg in 4 hours. If pain not relieved, call provider., Routine 0517 (Given - Provider: Morena Snowden RN)0919 (Given - Provider: Shauna Schultz RN)1338 (Given - Provider: Shauna Schultz RN)1722 (Given - Provider: Shauna Schultz RN)2201 (Given - Provider: Dionna Martines RN) 0200 (Given - Provider: Dionna Martines RN) HYDROmorphone (DILAUDID) tablet 6 mg (CANCELED)(Linked Group 2) 6 mg, Oral, EVERY 3 HOURS PRN, Starting on 01/03/12 at 0519, Until 01/03/12 at 0639, Pain, For Severe pain. Do not exceed 6 mg in 4 hours. If pain not relieved, call provider., Routine 0510 (Given - Provider: Dionna Martines RN) HYDROmorphone (DILAUDID) tablet 8 mg (CANCELED) 8 mg, Oral, EVERY 3 HOURS PRN, Starting on 01/03/12 at 0638, Until 01/04/12 at 1709, Pain, For Severe pain. Do not exceed 6 mg in 4 hours. If pain not relieved, call provider., Routine 0812 (Given - Provider: Shauna Schultz RN)1113 (Given - Provider: Shauna Schultz RN)1437 (Given - Provider: Shauna Schultz, INDU)1915 (Given - Provider: Shauna Schultz RN)2328 (Given - Provider: Tad Bui, RN) 0235 (Given - Provider: Tad Bui RN)0545 (Given - Provider: Tad Bui, RN)0929 (Given - Provider: Shauna Schultz, INDU)1231 (Given - Provider: Shauna Schultz RN) Linked Groups Order Group 1: lidocaine (LIDODERM) 5 %(700 mg/patch) patch 1 patch (CANCELED)Jump to med 1 patch, Transdermal, DAILY, First dose on Thu01/02/12 at 1400, Until Discontinued, Apply patch(es) for 12 hours, and then remove for 12 hours, Routine And lidocaine (LIDODERM) patch REMOVAL (CANCELED)Jump to med Transdermal, NIGHTLY, First dose on Thu01/02/12 at 2100, Until Discontinued, Remove Lidocaine Patch Group 2: HYDROmorphone (DILAUDID) tablet 2 mg (CANCELED) 2 mg, Oral, EVERY 3 HOURS PRN, Starting on 01/03/12 at 0519, Until 01/03/12 at 0639, Pain, For Mild pain. Do not exceed 6 mg in 4 hours. If pain not relieved, call provider., Routine Or HYDROmorphone (DILAUDID) tablet 4 mg (CANCELED) 4 mg, Oral, EVERY 3 HOURS PRN, Starting on 01/03/12 at 0519, Until 01/03/12 at 0639, Pain, For Moderate pain. Do not exceed 6 mg in 4 hours. If pain not relieved, call provider., Routine Or HYDROmorphone (DILAUDID) tablet 6 mg (CANCELED)Jump to med 6 mg, Oral, EVERY 3 HOURS PRN, Starting on 01/03/12 at 0519, Until 01/03/12 at 0639, Pain, For Severe pain. Do not exceed 6 mg in 4 hours. If pain not relieved, call provider., Routine documented in this encounter Care Teams Ceramic Painter Relationship Specialty Start Date End Date Tristan Collins MD [address] [place] [address] PCP - General 10/30/11 07/06/18 documented as of this encounter
--- OUTSIDE RECORDS SUMMARY | 2024-02-29 08:22 | XMS_ITS | Encounter Summary ---
[place] [address] Care Team Providers Care Estate Planning Paralegal Name Role Phone Tristan Collins MD Primary Care Provider [phone] Reason for Visit * Reason Onset Date Comments Other 12/03/2011 f/u from ER visi t on 12/02/11 Encounter Details Date Type Department Care Team (Late st Contact Info) Description 12/03/2011 [place] [id number] Catalina Price LPN Other (f/u from ER visit on 12/02/11) Social History Tobacco Use Types Packs/Day Years Used Date Smoking Tobacco: Never Sex and Gender Information Value Date Recorded Sex Assigned at Not on file Gender Identity Not on file Sexual Orientation Not on file documented as of this encounter Miscellaneous Notes * Telephone Encounter - Catalina Bernard LPN - 12/03/2011 10:00 AM EDT Scheduled for surgery 01/03/12 Dr. Land Received call from Mr. Glaser updating his visit to the ER yesterday. He was seen at [facility] in [place] for increased left leg pain. He was assessed and given Hydromorphone 4 mg every4 hrs, prn (5 tablets) and Diazepam 5 mg every 8 hrs, prn (5 tablets). The pain has decreased significantly. The ER MD advised him to contact the surgeon for a refill on the medications. I advised him to call his PCP. Our surgereon prescribes medications for approx. 6 weeks post surgery. I suggested he have the ER at [facility] fax paperwork to his PCP. [facility]. documented in this encounter Plan of Treatment Not on file documented as of this encounter Visit Diagnoses Not on filedocumented in this encounter Care Teams Estate Planning Paralegal Relationship Specialty Start Date End Date Tristan Collins MD [address] [place] [address] PCP - General 10/30/11 07/06/18 documented as of this encounter
--- OUTSIDE RECORDS SUMMARY | 2024-02-29 08:22 | XMS_ITS | Encounter Summary ---
[place] [address] Care Team Providers Care Auto Leasing Manager Name Role Phone Tristan Collins MD Primary Care Provider [phone] Encounter Details Date Type Department Care Team (Late st Contact Info) Description 11/12/2011 Abstract [place] [address] Nilsa Garcia LNA Social History Tobacco Use Types Packs/Day Years Used Date Smoking Tobacco: Never Sex and Gender Information Value Date Recorded Sex Assigned at Not on file Gender Identity Not on file Sexual Orientation Not on file documented as of this encounter Plan of Treatment Not on file documented as of this encounter Visit Diagnoses Not on filedocumented in this encounter Care Teams Auto Leasing Manager Relationship Specialty Start Date End Date Tristan Collins MD [address] [place] [address] PCP - General 10/30/11 07/06/18 documented as of this encounter
--- OUTSIDE RECORDS SUMMARY | 2024-02-29 08:22 | XMS_ITS | Encounter Summary ---
Author Organization [facility] Address [facility] [place] [address] Care Team Providers Care Sawdust Machine Operator Name Role Phone Tristan Collins MD Primary Care Provider [phone] Encounter Details Date Type Department Care Team (Late st Contact Info) Description 10/30/2011 9:00 AM EDT - 10/30/2011 11:59 PM EDT Hospital Encounter XRay at [address] [place] [address] Social History Tobacco Use Types Packs/Day Years Used Date Smoking Tobacco: Never Sex and Gender Information Value Date Recorded Sex Assigned at Not on file Gender Identity Not on file Sexual Orientation Not on file documented as of this encounter Medications at Time of Discharge Medication Sig Dispensed Refills Start Date End Date chlorthalidone (HYGROTEN) 50 mg tablet Take 25 mg by mouth daily. ibuprofen (ADVIL;MOTRIN) 800 mg tablet Take 800 mg by mouth 3 times daily. 01/04/2012 documented as of this encounter Plan of Treatment Not on file documented as of this encounter Visit Diagnoses Not on filedocumented in this encounter Care Teams Sawdust Machine Operator Relationship Specialty Start Date End Date Tristan Collins MD [address] [place] [address] PCP - General 10/30/11 07/06/18 documented as of this encounter
--- OUTSIDE RECORDS SUMMARY | 2024-02-29 08:22 | XMS_ITS | Encounter Summary ---
[place] [address] Care Team Providers Care Brand Specialist Name Role Phone Tristan Collins MD Primary Care Provider [phone] Reason for Referral * Surgical (Routine) - Closed Specialty Diagnoses / Procedures Referred By Contac t Referred To Contact Orthopaedic Surgery / Orthopaedics Diagnoses Thoracic or lumbosacral neuritis or radiculitis, unspecified Derek Henry MD [facility] [place] [address] [facility] [address] [place] [id number] Referral ID Status Reason Start Date Expiration Date V isits Requested Visits Authorized [id number] Closed Consult, Test & Treat 10/30/2011 04/27/2012 1 1 * Consultation (Routine) - Complete - Patient Seen (External Appt Consult Notes Rcv'd) Specialty Diagnoses / Procedures Referred By Contac t Referred To Contact Diagnoses Thoracic or lumbosacral neuritis or radiculitis, unspecified Derek Henry MD [facility] [place] [address] [facility] [address] [place] [address] Referral ID Status Reason Start Date Expiration Date V isits Requested Visits Authorized [id number] Complete - Patient Seen (External Appt Consult Notes Rcv'd) Other 10/30/2011 04/27/2012 3 3 Reason for Visit * Reason Comments Back Pain radiates left hip /b uttock down left leg to foot causing numbness Encounter Details Date Type Department Care Team (Late st Contact Info) Description 10/30/2011 9:20 AM EDT Office [place] [address] Derek Henry MD [facility] [place] [address] Sciatica of left side; Thoracic or lumbosacral neuritis or radiculitis, unspecified Discharge Disposition: Home Social History Tobacco Use [...] - Inhaled Oxygen Concentration - - Weight 106.6 kg (235 lb) 10/30/2011 9:40 AM EDT Height 167.6 cm (5' 6) 10/30/2011 9:40 AM EDT Body Mass Index 37.93 10/30/2011 9:40 AM EDT documented in this encounter Progress Notes * Derek Henry MD - 10/30/2011 11:20 AM EDT Date of Injury: 05/16/11 Name of Employer:[employer] Work Status: OOW since 05/22/11 Chief Complaint: left lbp to left foot History of Present Illness: On DOI on an air bed at a hotel while on a work trip, rolled over ... Acute onset of left LBP and leg pain. He sought care with his PCP after completing tour for work. Current Sx: Left LBP at 8/10 with radiation to left foot and intermittent lancinating pain. Has fallen down stairs about 2 weeks ago when leg gave way with pain. No further injury with this fall. Constant tingling and numbness of sole of left foot. Denies any focal weakness. No constitutional sx. No GI/ sx. His back is approximately equal to his left leg pain. Triggers: standing or walking for > 10 mins; sitting for 10 mins; bending. No change with valsalva. Alleviated by: semi-reclining; TENS No treatment to date has helped other than tramadol Treatment to date: Tramadol; oral steroid pills; ibuprofen; percocet;gabapentin (dizzy); TFESI, SI joint injection Tried PT (HEP and TENS/US/massage) for about 3 months Diagnostics to date: ncv/emg (normal by report); L/S MRI (bulging disc); x-ray of left hip; L/S spine films. Physicians eval to date: [facility] - LIBERTAD Palmer, SENIOR QUALITY ANALYST; no surgical eval Current Treatment: TENS unit and medications Functional Status: He is capable of minimal light housework, but is significantly limited in walking by an antalgic gait and in sitting due to increased leg pain. Past Medical History: Illnesses: Hypertension Injuries: no prior hx of back problems other than minor strain, self-resolving. Severe laceration right thumb, with little utility of thumb as sequela Surgery: none Current outpatient prescriptions Medication Sig Dispense Refill ??? traMADol (ULTRAM) 50 mg tablet Take 50 mg by mouth 3 times daily. ??? ibuprofen (ADVIL;MOTRIN) 800 mg tablet Take 800 mg by mouth 3 times daily. ??? chlorthalidone (HYGROTEN) 50 mg tablet Take 25 mg by mouth daily. ??? omeprazole (PRILOSEC) 20 mg capsule Take 20 mg by mouth daily. ??? multivitamin (THERAGRAN) tablet Take 1 tablet by mouth daily. ??? Potassium Gluconate 550 mg Tab Take by mouth. ??? traZODone (DESYREL) 100 mg tablet Take 100 mg by mouth nightly. Family History No family hx of spine issues, dm, ca, thyroid, arthritis, cv disease. 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 Has been doing this type of work for about 9 years. Social Hx: . works. 17 yo in college. Chewing tobacco. At contemplative stage. ROS: irritable. Depressed. Just started an anti-depressant. Has had some suicidal ideas but not plans and will not. Reports history of some tingling in his left ulnar distribution. Has had a nerve conduction EMG. No further treatment planned at this time. Physical Examination:Ht 167.6 cm (5' 6) Wt 106.595 kg (235 lb) BMI 37.93 kg/m2 Spine Observations: He appears in mild distress changing his posture during the evaluation frequently. Posture: He stands erect and straight with normal lumbar lordosis Gait: His gait is antalgic with a shortened Palpation: He is mildly tender in the left SI joint. There is no significant tenderness of the paraspinals. There is no spasm or increased tone of the paraspinals. There is modestly decreased discomfort at about L4-S1. There is no greater trochanteric tenderness. Range of motion: Flexion to about 40??. Extension is limited to about 10??. Left lateral bending are symmetric at about 20??. Motor: Is 5 out of 5+ out the lower extremities Sensory: Decreased to sharp touch only on the sole of his left foot. Deep tendon reflexes: 2+ and symmetric at knees and ankles Straight Leg Raise: Negative to leg pain bilaterally at 70?? Femoral Tension Sign: Negative bilaterally Wiliam's test creates left SI joint pain bilaterally. Slump test is negative. SI joint distractionand compression tests are negative other than Wiliam's test Imaging Lumbosacral spine film uploaded into [facility] from 07/02/11: Mild lumbar scoliosis with resulting increased compression at the L4-5 level the neuroforamen. Decreased disc height at L4-5 and L5-S1. He has amild retrolisthesis of L4 on L5 and L3 on L4. L/S MRI uploaded into [facility] from 07/14/11: This shows a right-sided paracentral disc herniation at L4-5 without neuroforaminal narrowing or nerve impingement. It also reveals a L5-S1 posterior disc herniation and disc desiccation. Facet arthropathy is noted at L L5-S1 in particular with narrowing of the left neural foramen and possible impingement on L5 nerve root. Nerve conduction/EMG reportedly unremarkable of lower extremities. Assessment: 1.. Chronic low back and left leg pain and failure of improvement with lumbar transforaminal epidural steroid injection, left SI joint injection. Has not benefited from medication. His options at this point would be a lumbar epidural steroid injection, possibly a lumbar medial branch block, or physical therapy oriented toward active conditioning beginning with pool therapy if necessary. Also other options exist for anti-neuropathic medications. Functional congregational program also exists as a potential. I did have the opportunity to review his MRI and case with one of our spine surgeons who didn't feel as though there was a surgical option if pain persists and conservative measures are exhausted. Today in reviewing the right he of options I do provide him with a shared decision-making video. He decides he would like to have a surgical evaluation. Plan: 1. 35 of this 60 minute visit was spent in counseling him with respect my diagnostic opinions with review of his imaging, his history and his physical examination with reference to an anatomic model and inclusion of our social media director. 2. disposition: Will refer for surgical evaluation here at the spine center and I will see him immediately thereafter to finalize treatment planning. documented in this encounter Plan of Treatment Scheduled Referrals Name Type Priority Associated Diagnoses Orde r Schedule REFERRAL TO SHARED DECISION PROGRAM Outpatient Referral Routine Thoracic or lumbosacral neuritis or radiculitis, unspecified Ordered: 10/30/2011 REFERRAL TO SPINE CENTER Outpatient Referral Routine Thoracic or lumbosacral neuritis or radiculitis, unspecified Ordered: 10/30/2011 documented as of this encounter Visit Diagnoses Diagnosis Sciatica of left side Sciatica Thoracic or lumbosacral neuritis or radiculitis, unspecified documented in this encounter Care Teams Brand Specialist Relationship Specialty Start Date End Date Tristan Collins MD [address] [place] [address] PCP - General 10/30/11 07/06/18 documented as of this encounter
--- OUTSIDE RECORDS SUMMARY | 2024-02-29 08:22 | XMS_ITS | Encounter Summary ---
Author Organization [facility] Address [facility] [place] [address] Care Team Providers Care Coat Baster Name Role Phone Tristan Collins MD Primary Care Provider [phone] Encounter Details Date Type Department Care Team (Latest Contact Info) Description 12/01/2011 10:20 AM EDT - 12/01/2011 11:59 PM EDT Hospital Encounter XRay at [address] [place] [address] CLINIC, Rodolfo Reveles MD [facility] [place] [address] Sciatica of left side Discharge Disposition: Home Social History Tobacco Use [...] for Pain. 100 tablet 0 01/04/2012 01/09/2012 triamcinolone (KENALOG) 0.1 % cream Apply 0.1 % topically 2 times daily. 01/04/2012 traMADol (ULTRAM) 50 mg tablet Take 50 mg by mouth 3 times daily. 01/04/2012 ibuprofen (ADVIL;MOTRIN) 800 mg tablet Take 800 mg by mouth 3 times daily. 01/04/2012 documented as of this encounter Plan of Treatment Not on file documented as of this encounter Procedures Procedure Name Priority Date/Time Associated Diagnosis Comments XR CHEST PA AND LATERAL Routine 12/01/2011 10:27 AM EDT Sciatica of left side documented in this encounter Results * XR chest routine PA & lateral (12/01/2011 10:27 AM EDT) Anatomical Region Laterality Modality Chest N/A Radiographic Celina ging 12/01/2011 10:2 7 AM EDT Narrative 12/01/2011 2:10 PM EDT Examination CHEST ROUTINE PA+LAT Clinical History Reason for exam and clinical history: Preoperative;spinal fusion / sciatica Comparison NONE Findings The lungs are clear. ??The cardiomediastinal silhouette, corie, and vessels are within normal limits. ??No pleural effusion. ??No suspicious osseous lesions. Impression Normal chest x-ray. Film and interpretation reviewed by the attending Procedure Note Patricio Hendricks MD - 12/01/2011 Examination CHEST ROUTINE PA+LAT Clinical History Reason for exam and clinical history: Preoperative;spinal fusion /sciatica Comparison NONE Findings The lungs are clear. The cardiomediastinal silhouette, corie, and vesselsare within normal limits. No pleural effusion. No suspicious osseouslesions. Impression Normal chest x-ray. Film and interpretation reviewed by the attending Rodolfo Land MD IMG DX ORDERABLES documented in this encounter Visit Diagnoses Diagnosis Sciatica of left side Sciatica documented in this encounter Care Teams Coat Baster Relationship Specialty Start Date End Date Tristan Collins MD [address] [place] [address] PCP - General 10/30/11 07/06/18 documented as of this encounter
--- OUTSIDE RECORDS SUMMARY | 2024-02-29 08:22 | XMS_ITS | Encounter Summary ---
[place] [address] Care Team Providers Care Maintenance Inspector Name Role Phone Tristan Collins MD Primary Care Provider [phone] Encounter Details Date Type Department Care Team (Late st Contact Info) Description 01/01/2012 7:27 AM EDT Anesthesia Event [place] [id number] Curt Carlson MD [address] [place] [id number] Anesthesia Record Procedure Summary Procedure Name Responsible Anesthesiologist Anesthesia Start Time Anesthesia Stop Time ARTHRODESIS, LUMBAR SPINE, SINGLE INTERSPACE (WRVU 23.53) (Left: Spine Lumbar) Curt Carlson MD 01/01/12 0727 01/01/12 1353 Events Date Time Event Comment 01/01/2012 0727 Start 0733 1353 Stop Meds * Agents No agents on file. * Blood No blood administrations on file. Lines, Drains, and Airways Type Details Placement Removal Incision 01/01/12; lumbar spi ne; 03/24/22 (LDA cleanup utility RA#[id number]); 1715 (LDA cleanup utility RA#[id number]) 01/01/12 0000 by Hanane Tabares RN 03/24/22 1715 by Rona Richardson Urethral Catheter 01/01/12; indwelling double lumen catheter (inserted using sterile technique.); latex; 16; inserted; 1; drainage bag to dependent drainage; 01/02/12; 0634 01/01/12 0000 by Hanane Tabares RN 01/02/12 0634 by María Crespo LNA Drain/Device Site 01/01/12; Left; lumb ar spine; collapsible closed device (10/09 drain to davol.); 01/04/12 (removed by ) 01/01/12 0000 by Hanane Tabares RN 01/04/12 0000 by Shauna Beverly RN (RETIRED) Peripheral IV Line - Single Lumen 01/01/12; 0651; 01/04/12; 1434 01/01/12 0651 by Talisha Nicholas RN 01/04/12 1434 by Shauna Beverly RN (RETIRED) Peripheral IV Line - Single Lumen 01/01/12; 0743; 01/04/12; 1434 01/01/12 0743 by Triston Bermeo, SPECIAL EDUCATION KINDERGARTEN TEACHER 01/04/12 1434 by Shauna Beverly RN (RETIRED) Arterial LIne 01/01/12; 0743; 01/01/12; 1551 01/01/12 0743 by Triston Bermeo, SPECIAL EDUCATION KINDERGARTEN TEACHER 01/01/12 1551 by Carolina Velasquez RN documented in this encounter Social History Tobacco Use Types Packs/Day Years Used Date Smoking Tobacco: Never Smokeless Tobacco: Current Chew Sex and Gender Information Value Date Recorded Sex Assigned at Not on file Gender Identity Not on file Sexual Orientation Not on file documented as of this encounter OR Notes * Anesthesia Preprocedure Evaluation - Curt Carlson - 01/01/2012 7:31 AM EDT Anesthesia Evaluation No hx of anesthetic complications Airway Mallampati: II TM distance: >3 FB Neck ROM: full Dental - normal exam Pulmonary (-) recent URI Cardiovascular (+) hypertension well controlled, (-) past DC, CAD and angina ECG reviewed ROS comment: ECG: NSR, mod voltage criteria for LVH. Neuro/Psych GI/Hepatic/Renal (-) GERD Endo/Other Comments: Low back and left leg pain. Abdominal Anesthesia Plan ASA 2 General with intravenous induction Plan GA with ETT. Arterial line in addition to standard monitors. Anesthetic plan and risks discussed with patient. Plan discussed with SPECIAL EDUCATION KINDERGARTEN TEACHER. documented in this encounter Plan of Treatment Not on file documented as of this encounter Visit Diagnoses Not on filedocumented in this encounter Care Teams Maintenance Inspector Relationship Specialty Start Date End Date Tristan Collins MD [address] [place] [address] PCP - General 10/30/11 07/06/18 documented as of this encounter
--- OUTSIDE RECORDS SUMMARY | 2024-02-29 08:22 | XMS_ITS | Encounter Summary ---
[place] [address] Care Team Providers Care Rehab Rn Name Role Phone Tristan Collins MD Primary Care Provider [phone] Encounter Details Date Type Department Care Team (Late st Contact Info) Description 10/29/2011 Abstract [place] [address] Derek Henry MD [facility] [place] [address] Social History Tobacco Use Types Packs/Day Years Used Date Smoking Tobacco: Never Assessed Sex and Gender Information Value Date Recorded Sex Assigned at Not on file Gender Identity Not on file Sexual Orientation Not on file documented as of this encounter Plan of Treatment Not on file documented as of this encounter Visit Diagnoses Not on filedocumented in this encounter Care Teams Rehab Rn Relationship Specialty Start Date End Date Tristan Collins MD [address] [place] [address] PCP - General 10/30/11 07/06/18 documented as of this encounter
--- OUTSIDE RECORDS SUMMARY | 2024-02-29 08:22 | XMS_ITS | Encounter Summary ---
Author Organization [facility] Address [facility] [place] [address] Care Team Providers Care Optometrist/Practice Owner Name Role Phone Tristan Collins MD Primary Care Provider [phone] Encounter Details Date Type Department Care Team (Latest Contact Info) Description 12/01/2011 9:16 AM EDT - 12/01/2011 11:59 PM EDT Hospital [place] [address] Rodolfo Land MD [facility] [place] [address] Sciatica of left side Discharge Disposition: Home [...] Procedure Name Priority Date/Time Associated Diagnosis Comments DIFFERENTIAL, AUTOMATED Routine 12/01/2011 9:51 AM EDT ABO/RH TYPING Routine 12/01/2011 9:51 AM EDT Sciatica of left side PROTHROMBIN TIME Routine 12/01/2011 9:51 AM EDT Sciatica of left side CBC (WITH DIFF) Routine 12/01/2011 9:51 AM EDT Sciatica of left side ANTIBODY SCREEN Routine 12/01/2011 9:51 AM EDT Sciatica of left side BASIC METABOLIC PANEL Routine 12/01/2011 9:51 AM EDT Sciatica of left side TYPE AND SCREEN, SDP (FUTURE SURGERY, [facility] SAME DAY PROGRAM ONLY) Routine 12/01/2011 9:17 AM EDT Sciatica of left side documented in this encounter Results * DIFFERENTIAL, AUTOMATED (12/01/2011 9:51 AM EDT) Neutrophil % 66.7 34.0 - 71.0 % CERNER MILLENNIUM Neutrophil Absolute 5.21 1.50 - 6.30 x10(3)/mcL CERNER MILLENNIUM Lymph % 20.8 19.0 - 53.0 % CERNER MILLENNIUM Lymphocytes Abs 1.6 1.0 - 3.6 x10(3)/mcL CERNER MILLENNIUM Monocyte % 7.1 4.0 - 13.0 % CERNER MILLENNIUM Monocyte Abs 0.6 0.2 - 1.0 x10(3)/mcL CERNER MILLENNIUM Eos % 4.6 0.0 - 7.0 % CERNER MILLENNIUM Eosinophils Abs 0.4 0.0 - 0.5 x10(3)/mcL CERNER MILLENNIUM Basophil % 0.5 0.0 - 2.0 % CERNER MILLENNIUM Baso Absolute 0.0 0.0 - 0.2 x10(3)/mcL CERNER MILLENNIUM Immature Gran % 0.30 0.00 - 0.66 % CERNER MILLENNIUM Comment: Immature granulocytes(IG's)percentage and absolute count will include metamyelocytes, myelocytes, and promyelocytes. Blood smears from CBCs yielding IG's will be scanned manually for concordance. If this scan disagrees with the automated IG or if promyelocytes are noted, a manual differential will be performed. Immature Gran Absolute 0.02 0.00 - 0.05 x10(3)/mcL [facility] Blood specimen (specimen) 12/01/2011 9:51 AM EDT 12/01/2011 10:17 AM EDT Rodolfo Land MD HEMATOLOGY ORDERABLE S Performing Organization Address [facility] Co de Phone Number [facility] * ANTIBODY SCREEN (12/01/2011 9:51 AM EDT) Ab Screen Interp Negative [facility] Expires at [id number] on: [id number] [facility] Blood specimen (specimen) 12/01/2011 9:51 AM EDT 12/01/2011 10:16 AM EDT Narrative Resulting Agency Comment Spec In Lab Rodolfo Land MD BLOOD BANK LAB ORDER ALBARO Performing Organization Address [facility] Phone Number [facility] * ABO/RH TYPING (12/01/2011 9:51 AM EDT) ABORH Type A Pos [facility] Blood specimen (specimen) 12/01/2011 9:51 AM EDT 12/01/2011 10:16 AM EDT Narrative Resulting Agency Comment Spec In Lab Rodolfo Land MD BLOOD BANK LAB ORDER ALBARO Performing Organization Address [facility] Co de Phone Number [facility] * Prothrombin Time (12/01/2011 9:51 AM EDT) Prothrombin Time 13.8 11.9 - 14.7 sec [facility] Comment: [facility] Transfusion Committee Guidelines: INR less than 2.0, PTT less than OR equal to 43.5 seconds, or Fibrinogen greater than or equal to 100 mg/dl indicate adequate procoagulant activity for hemostasis in patients without underlying bleeding disorders. International Normalization Ratio 1.0 0.9 - 1.1 CERNER MILLENNIUM Blood specimen (specimen) 12/01/2011 9:51 AM EDT 12/01/2011 10:17 AM EDT Narrative Resulting Agency Comment Spec In Lab Rodolfo Land MD HEMATOLOGY ORDERABLE S CERNER MILLENNIUM * (ABNORMAL) Basic Metabolic Panel (non-fasting) (12/01/2011 9:51 AM EDT) Glucose 106 60 - 199 mg/dL CERNER MILLENNIUM Comment:Diabetes: >=200 mg/d L plus symptoms Blood Urea Nitrogen 17 10 - 20 mg/dL CERNER MILLENNIUM Creatinine 0.77(L) 0.80 - 1.50 mg/dL CERNER MILLENNIUM Sodium 140 135 - 145 mmol/L CERNER MILLENNIUM Potassium 3.9 3.5 - 5.0 mmol/L CERNER MILLENNIUM Comment: Please note: ??Patients with WBC >100,000 may have falsely elevated Potassium levels. ??For accurate Potassium quantification in these patients send serum separator tube (gold top) for subsequent determinations. ??Contact the Clinical Chemistry Laboratory if there are any questions. Chloride 101 98 - 107 mmol/L CERNER MILLENNIUM Carbon Dioxide 27 22 - 31 mmol/L CERNER MILLENNIUM Anion Gap 12 5 - 15 mmol/L CERNER MILLENNIUM Calcium 10.1 8.5 - 10.5 mg/dL CERNER MILLENNIUM Est [...] J Am Soc Nephrol;6:1963-72. Blood specimen (specimen) 12/01/2011 9:51 AM EDT 12/01/2011 10:17 AM EDT Narrative Resulting Agency Comment Spec In Lab Rodolfo Land MD CHEMISTRY ORDERABLES [facility] * (ABNORMAL) CBC (with Diff) (12/01/2011 9:51 AM EDT) White Blood Cell 7.8 4.0 - 10.0 x10(3)/mc L CERNER MILLENNIUM Red Blood Cell 5.51 4.63 - 6.08 x10(6)/mc L CERNER MILLENNIUM Hemoglobin 15.2 13.7 - 17.5 gm/dL DARLENENER MILLENNIUM Hematocrit 44.8 40.0 - 51.0 % CERNER MILLENNIUM Mean Cell Volume 81.3 79.0 - 92.0 fL CERNER MILLENNIUM Mean Cell Hemoglobin 27.6 25.6 - 32.2 pg CERNER MILLENNIUM Mean Cell Hemoglobin Concentration 33.9 32.0 - 36.5 gm/dL CERNER MILLENNIUM Platelet 366 145 - 370 x10(3)/mc L CERNER MILLENNIUM RDW Standard Deviation 43.2 35.0 - 46.0 fL CERNER MILLENNIUM RDW coefficient of variation 14.8(H) 10.9 - 14.4 % CERNER MILLENNIUM Mean Platelet Volume 10.1 9.0 - 12.0 fL CERCAROLA MAXWELLENNIUM Blood specimen (specimen) 12/01/2011 9:51 AM EDT 12/01/2011 10:17 AM EDT Narrative Resulting Agency Comment Spec In Lab Rodolfo Land MD HEMATOLOGY ORDERABLE S Performing Organization Address City/State/[facility] Co de Phone Number EVELIA FARAH documented in this encounter Visit Diagnoses Diagnosis Sciatica of left side Sciatica documented in this encounter Care Teams Optometrist/Practice Owner Relationship Specialty Start Date End Date Tristan Collins MD [address] [place] [address] PCP - General 10/30/11 07/06/18 documented as of this encounter
--- OUTSIDE RECORDS SUMMARY | 2024-02-29 08:22 | XMS_ITS | Encounter Summary ---
[place] [address] Care Team Providers Care Interior Designer Name Role Phone Tristan Collins MD Primary Care Provider [phone] Reason for Visit * Reason Onset Date Comments Other 12/02/2011 surgery pending 01/01/12 increased leg pain X 9 days. Encounter Details Date Type Department Care Team (Late st Contact Info) Description 12/02/2011 Telephone [place] [id number] Parveen Salas RN Other (surgery pending 01/01/12 increased leg pain X 9 days.) Social History Tobacco Use Types Packs/Day Years Used Date Smoking Tobacco: Never Sex and Gender Information Value Date Recorded Sex Assigned at Not on file Gender Identity Not on file Sexual Orientation Not on file documented as of this encounter Miscellaneous Notes * Telephone Encounter - Parveen Salas RN - 12/03/2011 1:59 PM EDT Received call from patient stating that he had just spoken with his Worker Comp nurse embedded case manager regarding increased left leg pain, he reports that he has had a significant increase in his pain forthe last 9 days and she has directed him to be seen in his local ED. He denies any bowel or bladderchanges, no change in strength. He has surgery scheduled with Dr. Land on 01/01/12 and he is on the wait list for sooner OR date if available. Dr. Land infomred of the above. Patient to f/u after ED visit with outcome. documented in this encounter Plan of Treatment Not on file documented as of this encounter Visit Diagnoses Not on filedocumented in this encounter Care Teams Interior Designer Relationship Specialty Start Date End Date Tristan Collins MD [address] [place] [address] PCP - General 10/30/11 07/06/18 documented as of this encounter
--- OUTSIDE RECORDS SUMMARY | 2024-02-29 08:22 | XMS_ITS | Encounter Summary ---
Author Organization [facility] Address [facility] [place] [address] Care Team Providers Care Clinical Documentation Manager Name Role Phone Tristan Collins MD Primary Care Provider [phone] Reason for Visit * Reason Onset Date Comments Other 11/12/2011 Encounter Details Date Type Department Care Team (Late st Contact Info) Description 11/12/2011 Telephone Care Management [facility] [place] [phone] Linda Mcgrath MSW [facility] [place] [address] Other Social History Tobacco Use Types Packs/Day Years Used Date Smoking Tobacco: Never Sex and Gender Information Value Date Recorded Sex Assigned at Not on file Gender Identity Not on file Sexual Orientation Not on file documented as of this encounter Miscellaneous Notes * Telephone Encounter - Linda Mcgrath MSW - 11/12/2011 12:37 PM EDT [facility] received the following verbal correspondence from pt's wc insurance [place] re: upcoming surgery. According to Mr. Glaser???s [facility] Ana Urbina she has been given approval by [employer] to authorize the 12/31/2011 Dr. Land lumbar fusion surgery. Please be advised. If further communication is necessary please contact Ana Urbina at: [phone]. P: [facility] will be available for f/u intervention PRN. documented in this encounter Plan of Treatment Not on file documented as of this encounter Visit Diagnoses Not on filedocumented in this encounter Care Teams Clinical Documentation Manager Relationship Specialty Start Date End Date Tristan Collins MD [address] [place] [address] PCP - General 10/30/11 07/06/18 documented as of this encounter
--- OUTSIDE RECORDS SUMMARY | 2024-02-29 08:22 | XMS_ITS | Encounter Summary ---
[place] [address] Care Team Providers Care Fishing Worker Name Role Phone Tristan Collins MD Primary Care Provider [phone] Reason for Visit * Reason Comments Low Back Pain Encounter Details Date Type Department Care Team (Late st Contact Info) Description 11/10/2011 9:20 AM EDT Office [place] [address] Rodolfo Land MD [facility] [place] [address] Sciatica of left side (Primary Dx) Discharge Disposition: Home Social History Tobacco Use Types Packs/Day Years Used Date Smoking Tobacco: Never Sex and Gender Information Value Date Recorded Sex Assigned at Not on file Gender Identity Not on file Sexual Orientation Not on file documented as of this encounter Last Filed Vital Signs Vital Sign Reading Time Taken Comments Blood Pressure 131/75 11/10/2011 9:37 AM EDT Pulse 70 11/10/2011 9:37 AM EDT Temperature - - Respiratory Rate - - Oxygen Saturation 99% 11/10/2011 9:37 AM EDT Inhaled Oxygen Concentration - - Weight - - Height - - Body Mass Index - - documented in this encounter Progress Notes * Rodolfo Land MD - 11/10/2011 10:32 AM EDT 41 M presenting with acute onset LBP and left leg pain after a work related injury 4 weeks back. Being refd. by Dr. Henry. In May 06, 2011, He fell on an air bed at a hotel while on a work trip, as he rolled over. He sought care with his PCP after completing tour for work. Left LBP at 8/10 with radiation to left footand intermittent lancinating pain. He also has numbness in left S1 but radicular pain in left L5. He has left leg weakness, and around Tyson time he had fallen down stairs about in the past, whenleg gave way with pain. No further injury with this fall. Constant tingling and numbness of sole ofleft foot. Denies any focal weakness. No constitutional sx. No GI/ sx. His back pain is same as his left leg pain. This worsens with standing or walking for > 10 mins;sitting for 10 mins; bending. No change with valsalva. Pain eased by: semi-reclining; TENS No treatment to date has helped other than tramadol Treatment to date: Tramadol; oral steroid pills; ibuprofen; percocet;gabapentin (dizzy); TFESI, SI joint injection. Tried PT (HEP and TENS/US/massage) for about 3 months. Diagnostics to date: ncv/emg(normal by report); L/S MRI (bulging disc); x-ray of left hip; L/S spine films. Functional Status: He is capable of minimal light housework, but is significantly limited in walking by an antalgic gait and in sitting due to increased leg pain. Past Medical History: Illnesses: Hypertension Past Surgery: none Family History: No family hx of spine issues, dm, ca, thyroid, arthritis, cv disease. 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 Has been doing this type of work for about 9 years. He is off work since May 22, 2011 (about 2 weeks after the injury). Social Hx: . works. 17 yo in college. Chewing tobacco. Does not smoke. Alcohol - None. ROS: Depressed. Just started an anti-depressant. Has had some suicidal ideas but not plans and willnot. Reports history of some tingling in his left ulnar distribution. Has had a nerve conduction EMG. No further treatment planned at this time. O/E: Ht 167.6 cm (5' 6) Wt 106.595 kg (235 lb) BMI 37.93 kg/m2. Anxious. He appears in mild distress changing his posture during the evaluation frequently. He can stand erect and straight with normal lumbar lordosis. His gait is antalgic with a shortened steps.He is mildly tender in the left SI joint. There is no significant tenderness of the paraspinals. There is no spasm or increased tone of the paraspinals. Range of motion of the LS spine: Flexion to about 40??. Extension is limited to about 10?? and is more painful. Left lateral bending are symmetric at about 20??. He has instability catch on returning to erect posture after forward bending. Neurological Exam: Motor: Is 5 out of 5 out the lower extremities, but feels weaker on the left ankle both dorsiflexors and planter flexors. Sensory: Decreased to sharp touch only on the sole of his left foot. Deep tendon reflexes: 2+ and symmetric at knees and ankles. Straight Leg Raise: Negative to leg pain bilaterally at 70??. Femoral Tension Sign: Negative bilaterally. SI joint distraction and compression testsare negative other than Wiliam's test Imaging: Lumbosacral x-rays uploaded into [facility] from 07/02/11: Mild lumbar scoliosis with resulting increased compression at the L4-5 level the neuroforamen. Decreased disc height at L4-5 and L5-S1. He has a mild retrolisthesis and lateral listhesis of L4 on L5 and forward listhesis of L5-S1. L/S MRI uploaded into [facility] from 07/14/11: This shows a L4-5 and L5-S1 disc bulge and narrowing and disc desiccation. He has endplate clerosis at L4-5 and L5-S1 more towards left, causing more narrowing on the left L4-5 lateral recess, and left L5 exit foramen. Facet arthropathy is noted at Left L5-S1 in particular with narrowing of the left neural foramen and possible impingement on L5 nerve root.He also has early L3-4 disc degn, but normal disc above that levels. Nerve conduction/EMG reportedly unremarkable of lower extremities. A/P: Predominant LBP and left leg pain with occasional right leg pain, started after work related injury after a fall on air mattress in Apr 2011. L4-5-S1 disc degn with listhesis, and early L3-4 degn. He also has degn listhetis L4-5-S1, and foraminal stenosis L4-5 and L5-S1 more towards left with left L5 and S1 radoculopathy. Rx: Because his symptoms are getting worse for last 7 months despite non-op Rx, and could not return to work, I suggested surgery involving L4-5-S1 fusion with decompression on the left, with or without TLIF from the left side and ICBG. He has promised to stop using tobacco chewing, and he does notsmoke. We discussed the different treatment options, including continuing non-op treatment, functional jewish program, different surgical treatment etc. We discussed the risks and benefits of surgery which included but were not limited to 75% chance of improvement, 20% chance of no improvement, and 5% risk of getting worse. Additional risks include dural tear, hematoma, nerve root damage, infection, instrumentation failure, need for further surgery, adjacent segment degeneration, and also more sinister but rare complications such as , blindness, paralysis, etc. He understands the risks andbenefits involved and agrees to go forth with surgery. He will meet with the scheduling secretaries today. He will need to see his PCP for a pre-op eval. 40 min of this 60 min jhnq-fi-urie visit was spent in counseling her regarding different Rx optionsand treatment plan. documented in this encounter Miscellaneous Notes * Miscellaneous - Noel Forging Press Setter Up - 11/17/2011 2:07 PM EDT documented in this encounter Plan of [...] AP and lateral lumbar spine. Findings 5 hjg-dgf-sginnum lumbar type vertebrae are present. There has [...] AP and lateral lumbar spine. Findings 5 kxz-ikp-nlgzkjg lumbar type vertebrae are present. There has [...] postfusion. Rodolfo Land MD IMG DX ORDERABLES * XR chest routine PA & lateral [...] interpretation reviewed by the attending Procedure Note Ptaricio Hendricks MD - 12/01/2011 Examination CHEST ROUTINE PA+LAT Clinical History Reason for exam and clinical history: Preoperative;spinal fusion /sciatica Comparison NONE Findings The lungs are clear. The cardiomediastinal silhouette, corie, and vesselsare within normal limits. No pleural effusion. No suspicious osseouslesions. Impression Normal chest x-ray. Film and interpretation reviewed by the attending Rodolfo Land MD IMG DX ORDERABLES * EKG 12 Lead (12/01/2011 10:09 AM EDT) Ventricular rate 56 BPM MUSE SYSTEM Atrial Rate 56 BPM MUSE SYSTEM P-R Interval 152 ms MUSE SYSTEM QRS Duration 86 ms MUSE SYSTEM Q-T Interval 418 ms MUSE SYSTEM QTC Calculated (Bezet) 403 ms MUSE SYSTEM Calculated P Sedgwick 42 degrees MUSE SYSTEM Calculated R [place] -9 degrees MUSE SYSTEM INTERPRETATION Sinus bradycardia Moderate voltage criteria for LVH, may be normal variant Borderline ECG No previous ECGs available Confirmed by MD Ruth, Derek ([id number]) on 12/01/2011 2:24:22 PM MUSE SYSTEM 12/01/2011 10:0 9 AM EDT 12/01/2011 2:24 PM EDT Rodolfo Land MD ECG ORDERABLES Performing Organization Address [facility] de Phone Number MUSE SYSTEM * Prothrombin Time (12/01/2011 9:51 AM EDT) Prothrombin Time 13.8 11.9 - 14.7 sec CERNER mPorticoENNIUM Comment: [facility] Transfusion Committee Guidelines: INR less than 2.0, PTT less than OR equal to 43.5 seconds, or Fibrinogen greater than or equal to 100 mg/dl indicate adequate procoagulant activity for hemostasis in patients without underlying bleeding disorders. International Normalization Ratio 1.0 0.9 - 1.1 CERNER mPorticoENNIUM Blood specimen (specimen) 12/01/2011 9:51 AM EDT 12/01/2011 10:17 AM EDT Narrative Resulting Agency Comment Spec In Lab Rodolfo Land MD HEMATOLOGY ORDERABLE S Performing Organization Address City/[facility] Co de Phone Number CERNER AvistaIUM * (ABNORMAL) Basic Metabolic Panel (non-fasting) (12/01/2011 [...] diabetic kidney disease. References: http://nkdep.nih.gov/resources/NKDEP_Suggestn4Labs_0606_508.pdf http://www.kidney.org/professionals/kls/pdf/faq_gfr.pdf Ajay Puckett, Sarahy NA, Dewayne AK, Fawad TS, Lianne AD, Vinicio GASTON. Relative performance of the MDRD and CKD-EPI equations for estimating glomerular filtration rate among patients with varied clinical presentations. Clin J Am Soc Nephrol;6:1963-72. Blood specimen (specimen) 12/01/2011 9:51 AM EDT 12/01/2011 10:17 AM EDT Narrative Resulting Agency Comment Spec In Lab Rodolfo Land MD CHEMISTRY ORDERABLES CERCAROLA MILLENNIUM * (ABNORMAL) CBC (with Diff) (12/01/2011 9:51 AM EDT) White Blood Cell 7.8 4.0 - 10.0 x10(3)/mc L CERNER MILLENNIUM Red Blood Cell 5.51 4.63 - 6.08 x10(6)/mc L CERNER MILLENNIUM Hemoglobin 15.2 13.7 - 17.5 gm/dL CERNER MILLENNIUM Hematocrit 44.8 40.0 - 51.0 % [...] Platelet Volume 10.1 9.0 - 12.0 fL CERNER MILLENNIUM Blood specimen (specimen) 12/01/2011 9:51 AM EDT 12/01/2011 10:17 AM EDT Narrative Resulting Agency Comment Spec In Lab Rodolfo Land MD HEMATOLOGY ORDERABLE S EVELIA FARAH documented in this encounter Visit Diagnoses Diagnosis Sciatica of left side- Primary Sciatica Sciatica of left side Sciatica Sciatica of left side Sciatica documented in this encounter Care Teams Fishing Worker Relationship Specialty Start Date End Date Tristan Collins MD [address] [place] [address] PCP - General 10/30/11 07/06/18 documented as of this encounter
--- OUTSIDE RECORDS SUMMARY | 2024-02-29 08:22 | XMS_ITS | Encounter Summary ---
Author Organization [facility] Address [facility] [place] [address] Care Team Providers Care Administration Intern Name Role Phone Tristan Collins MD Primary Care Provider [phone] Encounter Details Date Type Department Care Team (Late st Contact Info) Description 06/27/2011 Orders Only [place] [address] Derek Henry MD [facility] [place] [address] Social History Tobacco Use Types Packs/Day Years Used Date Smoking Tobacco: Never Assessed Sex and Gender Information Value Date Recorded Sex Assigned at Not on file Gender Identity Not on file Sexual Orientation Not on file documented as of this encounter Plan of Treatment Not on file documented as of this encounter Procedures Procedure Name Priority Date/Time Associated Diagnosis Comments FILM LIBRARY STORAGE ONLY DX SPINE Routine 06/27/2011 9:25 AM EST documented in this encounter Results * FILM LIBRARY- STORAGE ONLY DX SPINE (06/27/2011 9:25 AM EST) 06/27/2011 9:25 AM EST Narrative MARLENE - 01/04/2014 2:59 PM EDT This is a non-reportable exam. Procedure Note Yunior Dodge - 01/04/2014 This is a non-reportable exam. Derek Henry MD IMG FILM LIBRARY OR DERABLES [facility] [address] [facility] [place] [address] documented in this encounter Visit Diagnoses Not on filedocumented in this encounter Care Teams Administration Intern Relationship Specialty Start Date End Date Tristan Collins MD [address] [place] [address] PCP - General 10/30/11 07/06/18 documented as of this encounter
--- OUTSIDE RECORDS SUMMARY | 2024-02-29 08:22 | XMS_ITS | Encounter Summary ---
Author Organization [facility] Address [facility] [place] [address] Care Team Providers Care Transit Planning Manager Name Role Phone Tristan Collins MD Primary Care Provider [phone] Encounter Details Date Type Department Care Team (Latest Contact Info) Description 12/01/2011 9:40 AM EDT Clinical Support Same Day at [facility] [place] [id number] Sciatica of left side Social History Tobacco Use Types Packs/Day Years Used Date Smoking Tobacco: Never Sex and Gender Information Value Date Recorded Sex Assigned at Not on file Gender Identity Not on file Sexual Orientation Not on file documented as of this encounter Last Filed Vital Signs Vital Sign Reading Time Taken Comments Blood Pressure - - Pulse 77 12/01/2011 9:08 AM EDT Temperature - - Respiratory Rate - - Oxygen Saturation 99% 12/01/2011 9:08 AM EDT Inhaled Oxygen Concentration - - Weight 110 kg (242 lb 6.4 oz) 12/01/2011 9:08 AM EDT Height 167.6 cm (5' 6) 12/01/2011 9:08 AM EDT Body Mass Index 39.12 12/01/2011 9:08 AM EDT documented in this encounter Progress Notes * Romel Mosley, RN - 12/01/2011 9:37 AM EDT PAT questionnaire reviewed with patient while in pre-admission testing. Pre- operative teaching folder reviewed with patient ~ expresses good understanding of all information reviewed. Pt had general anesthesia 10-15 years ago without problem for reattached thumb in [facility] in [place]. Blood work, T&S, CXR and EKG done today. documented in this encounter Plan of Treatment Not on file documented as of this encounter Procedures Procedure Name Priority Date/Time Associated Diagnosis Comments EKG 12-LEAD Routine 12/01/2011 10:09 AM EDT Sciatica of left side documented in this encounter Results * EKG 12 Lead (12/01/2011 10:09 AM EDT) Ventricular rate 56 BPM MUSE SYSTEM Atrial Rate 56 BPM MUSE SYSTEM P-R Interval 152 ms MUSE SYSTEM QRS Duration 86 ms MUSE SYSTEM Q-T Interval 418 ms MUSE SYSTEM QTC Calculated (Bezet) 403 ms MUSE SYSTEM Calculated P Coolidge 42 degrees MUSE SYSTEM Calculated R Coolidge -9 degrees MUSE SYSTEM INTERPRETATION Sinus bradycardia Moderate voltage criteria for LVH, may be normal variant Borderline ECG No previous ECGs available Confirmed by MD Miranda Robert ([id number]) on 12/01/2011 2:24:22 PM MUSE SYSTEM 12/01/2011 10:0 9 AM EDT 12/01/2011 2:24 PM EDT Rodolfo Land MD ECG ORDERABLES MUSE SYSTEM documented in this encounter Visit Diagnoses Diagnosis Sciatica of left side Sciatica documented in this encounter Care Teams Transit Planning Manager Relationship Specialty Start Date End Date Tristan Collins MD [address] [place] [address] PCP - General 10/30/11 07/06/18 documented as of this encounter
--- OUTSIDE RECORDS SUMMARY | 2024-02-29 08:22 | XMS_ITS | Encounter Summary ---
Author Organization [facility] [place] [address] Care Team Providers Care Crack Off Person Name Role Phone Tristan Collins MD Primary Care Provider [phone] Encounter Details Date Type Department Care Team (Late st Contact Info) Description 01/01/2012 7:30 AM EDT - 01/01/2012 12:28 PM EDT Surgery [place] [id number] Rodolfo Howard MD [facility] [place] [address] ARTHRODESIS, LUMBAR SPINE, SINGLE INTERSPACE (WRVU 23.53) Social History Tobacco Use Types Packs/Day Years [...] reaction time - contact the Spine Center ([phone]) with any questions or clinic issues. Medications: 1. You can continue to take Dilaudid for breakthrough pain, but your need for this medication will also decrease over time. 2. Narcotic pain medications can be very constipating so take the stool softener that was ordered to facilitate a bowel movement. You can also take an topu-qiy-jnhdgkb medication (miralax) to help ifneeded. 3. When you need a renewal for your narcotics, you need to give [facility] enough time to process your request. This can take up to 3 days so plan accordingly. Call the Spine Center prescription line at [phone] for assistance. 4. Some narcotic prescriptions CAN NOT be called into a pharmacy and require that the prescription be picked up here at [facility] or mailed to the pharmacy. 5. Do [...] any questions call: Clinical or Nurse issues: [phone] Medication renewal: [phone] Howard: [phone] Misc: You may have an x-ray prior [...] ?? Patient reports he is comfortable using information systems administrator to string on pants and underwear. Patient [...] training Total timed interventions: 15 minutes Pager: [phone] BRYAN VELASCO OT Occupational Therapy Rehabilitation Department * Анна Wilson - 01/04/2012 9:35 AM EDT Office of Care Management/Home Care Giver Group 4 Patient Name: Yasmani MCKAYN: [id number] : 1970 Referral received from [facility] Shelby Reyna requesting DME supply delivery. Vendor: [employer] Ordered: Front Wheeled Walker Equipment to be delivered to patient's room today prior to patient's discharge. Referral has been placed via e-discharge. АННА WILSON, Home Care Giver * Vanita Mckee, PT - 01/04/2012 9:17 [...] timed interventions: 15 minutes (functional activity) Pager: [phone] Vanita Mckee, PT Physical Therapy Rehabilitation Department * Umesh nKight Janelle - 01/04/2012 5:23 AM EDT ORTHOPAEDIC PROGRESS [...] Ho Miles - 01/03/2012 3:50 PM EDT Machine Tool Dresser Encounter Note Patient Name: Yasmani Glaser : [id number] MR#: [id number] Admit Date: 01/01/2012 5:53 AM Hospital Day [...] timed interventions: 15 minutes (functional activity) Pager: [phone] Umesh Dick, PT Physical Therapy Rehabilitation Department * Concetta Samano OT - 01/03/2012 12:58 PM EDT Occupational [...] instructed in the use of sock aid, information systems administrator, long handled bathsponge. ?? Patient donned pants, [...] interventions: 50 minutes functional therapeutic activity Pager: [phone] CONCETTA SAMANO OT Occupational Therapy Rehabilitation Department [...] 4:24 PM EDT Faxed clinical update to case operator Ana Urbina [phone]. * Shauna Schultz RN - 01/02/2012 4:23 PM EDT Patient called to notify RN about right thigh numbness/redness and warmth. Patient states that he feels pressure. Thighs were measured and measured equal bilaterally. + 2 bilateral pedal pulses. I encouraged patient to ring if this worsened. SUPERVISOR COMPRESSED YEAST is aware. Will continue to monitor. 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 Temp: [36.6 ??C [...] Family with patient. JESSICA DUARTE RN * Tristan Coronado T - 01/01/2012 3:19 PM EDT Surgery [...] Pain: denies SOB: denies Nausea: denies Pain: 10 Other: no other complaints Last value Range [...] as needed for balance and protection. The SH[employer]S [employer]LECTRONIC WARFARE OFFICER was discont inued on POD#1 and the [...] 8 hrs: BP Temp Pulse Resp SpO2 01/03/ 0540 115/69 mmHg 36.6 ??C (97.9 ??F) [...] reaction time - contact the Spine Center ([phone]) with any questions or clinic issues. Medications: 1. You can continue to take Dilaudid for breakthrough pain, but your need for this medication will also decrease over time. 2. Narcotic pain medications can be very constipating so take the stool softener that was ordered to facilitate a bowel movement. You can also take an twco-sdz-ltfqoik medication (miralax) to help ifneeded. 3. When you need a renewal for your narcotics, you need to give [facility] Spine center enough time to process your request. This can take up to 3 days so plan accordingly. Call the Spine Center prescription line at [phone] for assistance. 4. Some narcotic prescriptions CAN NOT be called into a pharmacy and require that the prescription be picked up here at [facility] or mailed to the pharmacy. 5. Do [...] questions call: 7. Clinical or Nurse issues: [phone] 8. Medication renewal: [phone] Howard: [phone] [facility]: You may have an x-ray prior to [...] Information: Primary Care Provider: TRISTAN COLLINS MD [phone] Hospital Attending: Rodolfo Howard MD Department of Orthopaedic Surgery Spine: [phone] Discharge References/Attachments: Discharge References/Attachments None For questions regarding this document or issues relating to this hospitalization on the Medical Service, please contact your inpatient physician through the [facility] Multifold Operator . Issues afterhours and on weekends will be handled by the Hospitalist staff on-call. Signed: GANESH ROSE MD 01/04/2012 * Plan of Care - Shauna Schultz RN - 01/03/2012 1:09 PM EDT Problem: [...] minutes Total timed interventions: 0 minutes Pager: [phone] LUPE REA OT 01/02/2012 Occupational Therapy Rehabilitation [...] minutes Total timed interventions: 0 minutes Pager: [phone] VANITA MCKEE PT Physical Therapy Rehabilitation Department [...] Patient rates pain at 6-9/10, patient using laundry technician appropriately, oral dilaudid also used to help control pain. Repositioning used as well with good effect. Will continue to monitor. * Op Note - Asael Jimenez - 01/01/2012 1:25 PM EDT [facility] Operative Note Patient Name: Yasmani Glaser : [id number] MR#: [id number] Case Date: 01/01/2012 Surgeon: Surgeon(s) and Role: * RODOLFO HOWARD MD - Primary * ASAEL JIMENEZ MD - Resident-Surgeon Victor M Preoperative diagnosis: L4-5-S1 TLIF and ICBG Postoperative diagnosis: L4-5-S1 TLIF and ICBG Procedure: L4-5-S1 Posterior fusion with instrumentation and L5-S1 TLIF from the left side with 7mmPEEK cage, and ICBG from the left iliac crest. CPT codes: 90290 (L5-S1) 17000 (L4-5-S1), 41633 (L5-S1 cage), 46404 (ICBG), 76388 (L4-5) Fluids: 2800ml, 500ml Hespan Estimated Blood Loss: 800ml Drains: Davol x 1 Disposition: awakened from anesthesia, extubated and taken to the recovery room in a stable condition, having suffered no apparent untoward event. Condition: doing well without problems (Please see the Surgical Encounter Summary for any Implant and Specimen details pertinent to this patient.) Implant Name Type Inv. Item Serial No. Project Buyer Lot No. LRB No. Used Action CAP,ED,REVERE,LCKNG ([id number]) (AUTOREQ) - [id number] IMPLANTS CAP,ED,REVERE,LCKNG ([id number]) (AUTOREQ) [employer] - [id number] Left 6 Implanted ALLOGRAFT,SUSTAIN,RT ARCH,7MM ([id number]) (AUTOREQ) - [id number] IMPLANTS ALLOGRAFT,SUSTAIN,RT ARCH,7MM ([id number]) (AUTOREQ) [employer] - [id number] Left 1 Implanted SCREW,PYXL,REVERE,6.5X30MM ([id number]) (AUTOREQ) - [id number] IMPLANTS SCREW,PYXL,REVERE,6.5X30MM ([id number]) (AUTOREQ) [facility] - [id number] Left 1 Implanted SCREW,PYXL,REVERE,6.5X35MM ([id number]) (AUTOREQ) - [id number] IMPLANTS SCREW,PYXL,REVERE,6.5X35MM ([id number]) (AUTOREQ) [facility] - [id number] Left 1 Implanted PEPE,SPNL,REVERE,CRVD,5.5X75MM ([id number]) (AUTOREQ) - [id number] IMPLANTS PEPE,SPNL,REVERE,CRVD,5.5X75MM ([id number]) (AUTOREQ) [facility] - [id number] Left 2 Implanted SCREW,PYXL,REVERE,6.5X40MM ([id number]) (AUTOREQ) - [id number] IMPLANTS SCREW,PYXL,REVERE,6.5X40MM ([id number]) (AUTOREQ) [facility] - [id number] Left 1 Implanted SCREW,PYXL,REVERE,6.5X45MM ([id number]) (AUTOREQ) - [id number] IMPLANTS SCREW,PYXL,REVERE,6.5X45MM ([id number]) (AUTOREQ) [facility] - [id number] Left 3 Implanted FINDINGS: The L5-S1 disc [...] planned surgery, and site according to the [facility] [place] Protocol. The back was then prepped using [...] was performed with the torque limiting screw maintenance truck driver. Throughout the casethe wound was copiously irrigated [...] Operative Note Patient Name: Yasmani Glaser : [id number] MR#: [id number] Case Date: 01/01/2012 Surgeon: Surgeon(s) and Role: [...] from the left iliac crest. CPT codes: 63844 (L5-S1) 83772 (L4-5-S1), 80951 (L5-S1 cage), 47433 (ICBG), 30957 (L4-5) Anesthesia: General Findings: The L5-S1 disc [...] of left side DIFFERENTIAL, AUTOMATED Routine 01/02/20 3:36 AM EDT CBC (WITH DIFF) Routine [...] EDT Rodolfo Howard MD HEMATOLOGY ORDERABLE S [facility] * (ABNORMAL) Basic Metabolic Panel (non-fasting) (01/02/2012 3:36 AM EDT) [facility] Glucose 117 60 - 199 mg/dL CERNER MILLENNIUM Comment:Diabetes: >=200 mg/d L plus symptoms Blood Urea Nitrogen 9(L) 10 - 20 mg/dL CERNER MILLENNIUM Creatinine 0.67(L) 0.80 - 1.50 mg/dL CERNER MILLENNIUM Comment: Please note that the pediatric reference intervals supplied above were not validated at [facility]. Results from pediatric patients should be interpreted [...] In Lab Rodolfo Howard MD CHEMISTRY ORDERABLES CERNER MILLENNIUM * (ABNORMAL) CBC (with Diff) (01/02/2012 [...] Lab Rodolfo Howard MD HEMATOLOGY ORDERABLE S [facility]ER[facility] MAXWELLEN[facility] * XR lumbar spine 2 or 3 [...] Platelet 313 145 - 370 x10(3)/mc L CERNER MILLENNIUM RDW Standard Deviation 42.2 35.0 - 46.0 fL CERNER MILLENNIUM RDW coefficient of variation 14.3 10.9 - 14.4 % CERNER MILLENNIUM Mean Platelet Volume 10.3 9.0 - 12.0 fL CERNER MILLENNIUM Blood specimen (specimen) 01/01/2012 3:03 PM EDT 01/01/2012 3:15 PM EDT Narrative Resulting Agency Comment Spec In Lab Rodolfo Howard MD HEMATOLOGY ORDERABLE S [facility] documented in this encounter Visit Diagnoses Diagnosis L4-S1 PIF with L5-S1 L TLIF- Primary Sciatica Sciatica Sciatica of left side Sciatica documented in this encounter Administered Medications Inactive Administered Medications - up to 3 most recent administrations Medication Order MAR Action Action Date Dose Rate Site bacitracin injection ONCE PRN, Starting on Patria 01/01/12 at 0846, Until Patria 01/01/12 at 1705, Intra-Operative (Intra-Procedure), Routine Given 01/01/2012 8:46 AM EDT 50,000 Units gelatin adsorbable 100 (GELFOAM) sponge ONCE PRN, Starting on Patria 01/01/12 at 0846, Until Patria 01/01/12 at 1705, Intra-Operative (Intra-Procedure), Routine Given 01/01/2012 8:46 AM EDT 1 each thrombin (Bovine) (THROMBINAR) kit ONCE PRN, Starting on Patria 01/01/12 at 0847, Until Patria 01/01/12 at 1705, Intra-Operative (Intra-Procedure) Given 01/01/2012 8:47 AM EDT 40,000 Units vancomycin (VANCOCIN) injection ONCE PRN, Starting on Patria 01/01/12 at 1222, Until Patria 01/01/12 at 1705, Intra-Operative (Intra-Procedure), Routine Given 01/01/2012 12:22 PM EDT 1 g 19- Surgical Site documented in this encounter Active and Recently Administered Medications Times are shown in EDT. Scheduled Medication Order 01/02/2012 01/03/2012 01/04/2012 acetaminophen (TYLENOL) tablet 1,000 mg 1,000 mg, Oral, EVERY 8 HOURS SCHEDULED, First dose on Patria 01/01/12 at 1545, Until Discontinued, Maximum dose of acetaminophen is 4000 mg from all sources in 24 hours., Routine 0518 (Given - Provider: Morena Snowden RN)1338 (Given - Provider: Shauna Schultz RN)2124 (Given - Provider: Dionna Martines RN) 0604 (Given - Provider: Dionna Martines RN)1437 (Given - Provider: Shauna Schultz RN)210 (Given - Provider: Dionna Martines, INDU) 0600 [...] Prophylaxis 0639 (New Bag - Provider: Morena Snowden RN) citalopram (celeXA) tablet 20 mg (CANCELED) 20 mg, Oral, DAILY, First dose on Thu01/02/12 at 0900, Until Discontinued, Routine 2025 (Given - Provider: Dionna Martines RN) 210 (Given - Provider: Dionna Martines RN) esomeprazole (NEXIUM) capsule 40 mg (CANCELED) 40 mg, Oral, DAILY, First dose on Patria 01/01/12 at 1845, Until Discontinued, Routine 0822 (Given - Provider: Shauna Schultz RN) 08 [...] and then remove for 12 hours, Routine 1722 (Given - Provider: Shauna Schultz RN) 08 [...] dose on Thu01/02/12 at 0900, Until Discontinued 08 (Given - Provider: Shauna Schultz RN) 08 [...] Routine 08 (Given - Provider: Shauna Schultz RN)2099 (Given - Provider: Dionna Martines RN) 0807 (Given - Provider: Shauna Schultz RN)210 (Given - Provider: Dionna Martines RN) 0900 (Given - Provider: Shauna Schultz RN) sodium chloride 0.9 % flush 5 mL (CANCELED) 5 mL, Intravenous, EVERY 12 HOURS, First dose on Patria 6/12 at 1800, Until Discontinued 0517 (Given - Provider: Morena Snowden RN)1720 (Given - Provider: Shauna Schultz RN) 0600 (Given - Provider: Dionna Martines RN)1745 (Given - Provider: Shauna Schultz, INDU) 0600 (Given - Provider: Tad Bui RN) traZODone (DESYREL) tablet 100 mg (CANCELED) 100 mg, Oral, NIGHTLY, First dose on Patria 12/31/12 at 2100, Until Discontinued, Routine 2026 (Given - Provider: Dionna Martines RN) 2106 (Given - Provider: Dionna Martines RN) Continuous Medication Order 01/02/2012 01/03/2012 01/04/2012 lactated ringers infusion 1,000 mL (CANCELED) 1,000 mL, at 100 mL/hr, Intravenous, CONTINUOUS, Starting on Patria 01/01/12 at 1415, Until 01/04/12 at 1709 0111 (New Bag - Provider: Morena Snowden RN)0919 (Stopped - Provider: Shauna Schultz RN) PRN Medication Order 01/02/2012 01/03/2012 01/04/2012 HYDROmorphone (DILAUDID) tablet 4 mg(Linked Group 2) 4 mg, Oral, EVERY 3 HOURS PRN, Starting on 01/03/12 at 0638, Until 01/04/12 at 1709, Pain, For Moderate pain. Do not exceed 6 mg in 4 hours. If pain not relieved, call provider., Routine 0812 (See Alternative - Provider: Shauna Schultz RN)1113 [...] Martines RN) HYDROmorphone (DILAUDID) tablet 6 mg (CANCELED) 6 mg, Oral, EVERY 3 HOURS PRN, Starting on 01/03/12 at 0519, Until 01/03/12 at 0639, Pain, For Severe pain. Do not exceed 6 mg in 4 hours. If pain not relieved, call provider., Routine 0510 (Given - Provider: Dionna Martines RN) HYDROmorphone (DILAUDID) tablet 8 mg (CANCELED)(Linked Group 2) 8 mg, Oral, EVERY 3 HOURS PRN, Starting on 01/03/12 at 0638, Until 01/04/12 at 1709, Pain, For Severe pain. Do not exceed 6 mg in 4 hours. If pain not relieved, call provider., Routine 0812 (Given - Provider: Shauna Schultz RN)1113 (Given - Provider: Shauna Schultz RN)1437 (Given - Provider: Shauna Schultz RN)1915 (Given - Provider: Shauna Schultz RN)2328 (Given - Provider: Tad Bui RN) 0235 (Given - Provider: Tad Bui RN)0599 (Given - Provider: Tad Bui RN)0982 (Given - Provider: Shauna Schultz, RN)8464 (Given - Provider: Shauna Schultz, RN) Linked Groups Order Group 1: lidocaine [...] Lidocaine Patch Group 2: HYDROmorphone (DILAUDID) tablet 4 mgJump to med 4 mg, Oral, EVERY 3 HOURS PRN, Starting on 01/03/12 at 0638, Until 01/04/12 at 1709, Pain, For Moderate pain. Do not exceed 6 mg in 4 hours. If pain not relieved, call provider., Routine Or HYDROmorphone (DILAUDID) tablet 8 mg (CANCELED)Jump to med 8 mg, Oral, EVERY 3 HOURS PRN, Starting on 01/03/12 at 0638, Until 01/04/12 at 1709, Pain, For Severe pain. Do not exceed 6 mg in 4 hours. If pain not relieved, call provider., Routine documented in this encounter Care Teams Crack Off Person Relationship Specialty Start Date End Date Tristan Collins MD [address] [place] [address] PCP - General 10/30/11 07/06/18 documented as of this encounter
--- OUTSIDE RECORDS SUMMARY | 2024-02-29 08:22 | XMS_ITS | Encounter Summary ---
Author Organization [facility] [place] [address] Care Team Providers Care Mobile Marketing Manager Name Role Phone Tristan Collins MD Primary Care Provider [phone] Encounter Details Date Type Department Care Team (Late st Contact Info) Description 07/14/2011 Orders Only [place] [address] Derek Henry MD [facility] [place] [address] Social History Tobacco Use Types Packs/Day Years [...] Associated Diagnosis Comments FILM LIBRARY STORAGE ONLY MR SPINE Routine 07/14/2011 4:24 PM EST documented in this encounter Results * FILM LIBRARY- STORAGE ONLY MR SPINE (07/14/2011 4:24 PM EST) 07/14/2011 4:24 PM EST Narrative RAD - 01/04/2014 2:59 PM EDT This is a non-reportable exam. Procedure Note Yunior Dodge - 01/04/2014 This is a non-reportable exam. Derek Henry MD IMG FILM LIBRARY OR DERABLES [facility] [address] [facility] [place] [address] documented in this encounter Visit Diagnoses Not on filedocumented in this encounter Care Teams Mobile Marketing Manager Relationship Specialty Start Date End Date Tristan Collins MD [address] [place] [address] PCP - General 10/30/11 07/06/18 documented as of this encounter
[2024-02-29 16:19] LABS: Abs Immature Grans 0.02 10^3/uL (0.0-0.06); Absolute Basophil Count 0.04 10^3/uL (0.0-0.2); Absolute Eosinophil Count 0.15 10^3/uL (0.0-0.7); Absolute Lymphocyte Count 1.61 10^3/uL (1.2-3.4); Absolute Neutrophil Count 3.31 10^3/uL (1.2-6.7); Basophils % 0.7 %; Eosinophils % 2.7 %; HGB 14.1 g/dL (13.5-17.5); Immature Grans % 0.4 %; Lymphocytes % 29.1 %; MCH 28.4 pg (27.0-33.0); MCV 89 fL (80-95); MPV 10.6 fL (8.0-11.0); Monocytes % 7.2 %; Neutrophils % 59.9 %; Platelet Count 247 10^3/uL (130-400); RBC 4.96 10^6/uL (4.36-5.78); RDW 14.1 % (11.8-14.1); RDW-SD 45.4 fL; WBC 5.53 10^3/uL (4.4-10.8)
[2024-02-29 16:28] LABS: VALPROIC ACID 62.2 ug/mL
[2024-02-29 16:43] LABS: ALT 11 U/L (16-63); AST 15 U/L (15-37); Albumin 3.5 g/dL (3.4-5.0); Alkaline Phosphatase 49 U/L (46-116); Anion Gap 7.7 mmol/L (3-11); BUN 8 mg/dL (7-18); Bilirubin, Total 0.19 mg/dL (0.2-1.0); CO2 27.3 mmol/L (21.0-32.0); CREATININE 0.8 mg/dL (0.70-1.30); Calcium 8.8 mg/dL (8.5-10.1); Calculated LDL 124 mg/dL (<100); Chloride 109 mmol/L (98-107); Cholesterol 175 mg/dL (<200); Estimated GFR 104.51 (mL/min/1.73m2); Glucose 124 mg/dL (74-106); HDL Cholesterol 38 mg/dL (40-60); Potassium 4.2 mmol/L (3.5-5.1); Sodium 144 mmol/L (136-145); TSH 0.99 uIU/Ml (0.36-3.74); Total Protein 7.4 g/dL (6.4-8.2); Triglyceride 67 mg/dL (<150)
[2024-02-29 19:23] LABS: *BENZODIAZEPINES SCREEN URINE Negative (Negative)
[2024-02-29 19:24] LABS: *AMPHETAMINES SCREEN URINE Negative (Negative); *BARBITURATES SCREEN URINE Negative (Negative); Cannabinoids THC Positive (Negative); Cocaine Screen,Urine Negative (Negative); OPIATES URINE SCREEN Negative (Negative); Tricyclic Antidepressants Negative (Negative)
[2024-03-01 18:22] LABS: Hemoglobin A1C 5.2 % (<5.7)
[2024-03-04 03:21] LABS: Testosterone, Total 223 ng/dL (240-950)
== END 2024-02-29 08:13 | disposition home or self-care (01) ==
LOC: LBN 08:12
PROVIDERS: PCP Internal Medicine; Visit Provider Registered Nurse
DX: F31.62 Bipolar disorder, current episode mixed, moderate (principal); F41.1 Generalized anxiety disorder; F10.21 Alcohol dependence, in remission
CPT/HCPCS: 80053; 80061; 80307; 84403; 80164; 83036; 84443; 85025

== ENCOUNTER 2024-04-27 14:45 | Outpatient (REF) | payer MEDICAID, SELFPAY ==
[2024-05-01 11:30] LABS: Testosterone, Free 7.55 ng/dL (3.87-14.7); Testosterone, Total 326 ng/dL (240-950)
== END 2024-04-27 14:46 | disposition home or self-care (01) ==
LOC: NCHCN 14:45
PROVIDERS: PCP Internal Medicine; Visit Provider Internal Medicine
DX: R89.1 Abnormal level of hormones in specimens from other organs, systems and tissues (principal)
CPT/HCPCS: 84402; 84403

== ENCOUNTER 2024-07-26 09:37 | Outpatient (REF) | payer MEDICAID, SELFPAY ==
[2024-07-26 15:26] LABS: VALPROIC ACID 114.3 ug/mL
== END 2024-07-26 09:38 | disposition home or self-care (01) ==
LOC: LBN 09:37
PROVIDERS: PCP Internal Medicine; Visit Provider Registered Nurse
DX: F31.62 Bipolar disorder, current episode mixed, moderate (principal); F41.1 Generalized anxiety disorder; F10.21 Alcohol dependence, in remission; Z51.81 Encounter for therapeutic drug level monitoring
CPT/HCPCS: 80164

== ENCOUNTER 2025-02-09 17:28 | Outpatient (REF) | payer MEDICAID, SELFPAY | END 2025-02-09 17:29 | disposition home or self-care (01) | LOC: LBN 17:28 | PROVIDERS: PCP Internal Medicine; Visit Provider Registered Nurse | DX: F31.62 Bipolar disorder, current episode mixed, moderate (principal); F60.3 Borderline personality disorder; F41.1 Generalized anxiety disorder; F10.21 Alcohol dependence, in remission; Z51.81 Encounter for therapeutic drug level monitoring | CPT/HCPCS: 80164 ==

== ENCOUNTER 2025-03-07 13:19 | Outpatient (REF) | payer MEDICAID, SELFPAY ==
[2025-03-07 17:11] LABS: Hemoglobin A1C 5.4 % (<5.7)
[2025-03-07 17:46] LABS: Anion Gap 9.5 mmol/L (3-11); BUN 13 mg/dL (7-18); CO2 27.5 mmol/L (21.0-32.0); Calcium 9.0 mg/dL (8.5-10.1); Calculated LDL 74 mg/dL (<100); Chloride 106 mmol/L (98-107); Cholesterol 128 mg/dL (<200); Estimated GFR 103.87 (mL/min/1.73m2); Glucose 143 mg/dL (74-106); HDL Cholesterol 42 mg/dL (>or=40); Potassium 4.6 mmol/L (3.5-5.1); Sodium 143 mmol/L (136-145); Triglyceride 62 mg/dL (<150)
== END 2025-03-07 13:20 | disposition home or self-care (01) ==
LOC: NCHCN 13:19
PROVIDERS: PCP Internal Medicine; Visit Provider Internal Medicine
DX: E11.9 Type 2 diabetes mellitus without complications (principal); E78.5 Hyperlipidemia, unspecified
CPT/HCPCS: 80048; 80061; 83036

== ENCOUNTER 2025-06-21 10:02 | Outpatient (REF) | payer MEDICAID, SELFPAY ==
[2025-06-21 16:05] LABS: Microalb ug/mg Crea 1.4 ug/mg Cr
== END 2025-06-21 10:03 | disposition home or self-care (01) ==
LOC: NCHCN 10:02
PROVIDERS: PCP Internal Medicine; Visit Provider Internal Medicine
DX: E11.9 Type 2 diabetes mellitus without complications (principal)
CPT/HCPCS: 82043; 82570